=== PATIENT | female | born 1945 | race Caucasian/White ===

== ENCOUNTER → 2017-11-03 09:32 | Outpatient (CLI) | payer MEDICARE, OTHER, SELFPAY ==
--- NOTE | 2017-11-03 09:44 | NM_ITS ---
CLINICAL: 72-year-old female with history of painful left knee arthroplasty, presumably operated November 2016. LIMITED 99m Tc MDP THREE PHASE BONE SCINTIGRAPHY COMPARISON: None available FINDINGS: Following the intravenous administration of 25.0 mCi of 99m Tc MDP, three-phase bone acquisitions of the knee articulations reveal: 1. The flow and immediate static blood pool acquisitions demonstrate relatively normal, symmetric arterial phase distribution of the radiopharmaceutical to the bilateral knees. Venous hyperemia is demonstrated in the medial compartment of the right knee and medial and lateral femoral components of the left knee prosthesis. 2. Delayed images depict persistent increased radiopharmaceutical concentration visualized in the medial tibial compartment of the right knee, the patellofemoral compartments of both knees. 3. A mild increase in tracer concentration is demonstrated in the medial-lateral femoral and tibial components of the symptomatic left knee prosthesis. 4. The remaining limited skeletal structures are scintigraphically unremarkable. NM/Bone Scan Three Phase IMPRESSION: 1. The increase in radiopharmaceutical concentration defined in the femoral-tibial components of the symptomatic left knee arthroplasty may represent loosening. The specificity of this finding is decreased in the setting of operative intervention < 2 years prior to the current presentation. If an infectious etiology is a diagnostic consideration, correlation with labeled leukocyte imaging is recommended. 2. Facilitated uptake otherwise noted in the patellofemoral and medial tibial compartments of the right knee, patellofemoral compartment of the left knee (in the absence of patellar hardware placement) is commensurate with degenerative arthritis. Electronically Signed: Roberto Tsai DO at 10:41 EDT Tel , Service support ,
[2017-11-03 10:33] LABS: Erythrocyte Sedimentation Rate 8 mm/hr (0-30)
[2017-11-03 10:36] LABS: Absolute Lymphocyte Count 2.11 X10^3/ul (0.83-4.51); Absolute Neutrophil Count 3.9 X10^3/uL (2.0-7.7); Basophil# 0.02 X10^3/uL; Basophil% 0.3 % (0-1); Eosinophil# 0.18 X10^3/uL; Eosinophils% 2.7 % (0-5); Hematocrit 39.6 % (37-47); Hemoglobin 12.5 g/dl (12.0-15.0); Lymphocyte # 2.11 X10^3/ul (4.0); Lymphocyte % 31.2 % (19-41); Mean Corp Hgb Conc 31.6 g/gl (32-36); Mean Corpuscular Hgb 26.4 pg (27.0-32.0); Mean Corpuscular Volume 83.7 fL (81-99); Mean Platelet Vol. 11.7 fl (6.2-12.0); Monocyte# 0.54 X10^3/uL; Neutrophil % 57.5 % (47-70); Platelet Count 196 K/mm3 (150-450); RBC Distribution Width CV 14.8 % (11.6-14.6); RBC Distribution Width SD 45.5 fl (35.1-43.9); Red Blood Count 4.73 M/mm3 (4.2-5.4); White Blood Count 6.8 K/mm3 (4.4-11.0)
[2017-11-03 10:39] LABS: POSITIVE COUNT NO; POSITIVE DIFFERENTIAL NO; POSITIVE MORPHOLOGY NO
[2017-11-03 11:00] LABS: CRP < 2.90 mg/L (0.0-3.0)
== END ==
PROVIDERS: Family Provider Nurse Practitioner Adult Health; PCP Nurse Practitioner Adult Health; Visit Provider Orthopaedic Surgery
DX: Z96.652 Presence of left artificial knee joint (principal)
CPT/HCPCS: 36415; 78315; 85025; 85652; 86140

== ENCOUNTER → 2019-04-11 09:12 | Outpatient (CLI) | payer MEDICARE, OTHER, SELFPAY ==
[2016-12-15 11:01] VITALS: BMI 36.9
--- NOTE | 2019-04-11 09:23 | RAD_ITS ---
STUDY: X-RAY - PELVIS REASON FOR EXAM: Female, 73 years old. Inflammatory arthropathy TECHNIQUE: One view of the pelvis was obtained. COMPARISON: 03/03/2011 FINDINGS: There is a non-specific bowel gas pattern. Normal visualized soft tissue structures. Normal bilateral iliac wings, sacroiliac joints and visualized sacrum. Normal visualized bilateral superior and inferior pubic rami. Normal pubic symphysis. Normal ischial tuberosities. Status post right hip hemiarthroplasty. The prosthesis appears located. No ostial lysis to suggest loosening. Normal right acetabulum. Normal right hip joint. Normal visualized left femoral head. Normal left acetabulum. Normal left hip joint. RAD/Pelvis 1 or 2 Views IMPRESSION: Normal x-ray examination of the pelvis after right hip hemiarthroplasty. Electronically Signed: Roberto Roman MD at 9:42 EDT Tel , Service support ,
[2019-04-11 10:25] LABS: EXAGEN MAILED SPECIMEN
[2019-04-11 12:23] LABS: Color, Urine Yellow (Yellow); Glucose, Dipstick Normal (Normal); Ketone-Dipstick Negative (Negative); Leukocyte Esterase-Dipstick Negative /ul (Negative); Nitrite-Dipstick Negative (Negative); Occult Blood-Urine Negative /ul (Negative); Protein-Dipstick Negative (Negative); Specific Gravity, Urine 1.015 (1.002-1.030); Urine Bilirubin Dipstick Negative (Negative); Urine Clarity Sl. Cloudy (Clear); Urine Urobilinogen Normal (Normal)
[2019-04-11 12:26] LABS: Erythrocyte Sedimentation Rate 21 mm/hr (0-30)
[2019-04-11 12:28] LABS: Absolute Lymphocyte Count 2.22 X10^3/uL (0.83-4.51); Absolute Neutrophil Count 4.4 X10^3/uL (2.0-7.7); Basophil# 0.05 X10^3/uL; Basophil% 0.7 % (0-1); Eosinophil# 0.41 X10^3/uL; Eosinophils% 5.4 % (0-5); Hematocrit 40.3 % (37-47); Hemoglobin 12.7 g/dL (12.0-15.0); Lymphocyte # 2.22 X10^3/ul (4.0); Lymphocyte % 29.2 % (19-41); Mean Corp Hgb Conc 31.5 g/dL (32-36); Mean Corpuscular Volume 82.4 fL (81-99); Mean Platelet Vol. 12.1 fl (6.2-12.0); Monocyte# 0.49 X10^3/uL; Monocyte% 6.4 % (0-10); NRBC Flagged by Analyzer 0 % (0-5); Neutrophil # 4.39 X10^3/uL (2.7-7.7); Neutrophil % 57.6 % (47-70); Platelet Count 216 K/mm3 (150-450); RBC Distribution Width CV 14.5 % (11.6-14.6); RBC Distribution Width SD 42.9 fl (35.1-43.9); Red Blood Count 4.89 M/mm3 (4.2-5.4); White Blood Count 7.6 K/mm3 (4.4-11.0)
[2019-04-11 12:32] LABS: Protein, Urine (Random) 13.1 mg/dL (<11.9); Protein:Creat Ratio 82 mg/g CRE (0-200)
[2019-04-11 12:36] LABS: ALB/GLOB Ratio 0.9 RATIO (0.9-2.4); AST(SGOT) 14 U/L (15-37); Alanine Aminotransfer ALT/SGPT 21 U/L (13-56); Albumin, Serum 3.7 g/dL (3.2-5.0); Alkaline Phosphatase 87 U/L (45-117); Anion Gap 7 (5-15); BUN 16 mg/dL (7-18); BUN/Creat Ratio 11.9 RATIO (10-20); CRP 4.61 mg/L (0.0-3.0); Calcium,Total 9.1 mg/dL (8.5-10.1); Chloride 106 mmol/L (98-107); Creatinine, Serum 1.34 mg/dL (0.55-1.02); EST Glomerular Filtration Rate 41 mL/min (>60); Est Glom Filt Rate - Afr Amer 50 mL/min (>60); Globulin 4.1 g/dL (2.2-4.2); Glucose 90 mg/dL (74-106); Protein, Total 7.8 g/dL (6.4-8.2); Sodium Level 141 mmol/L (136-145)
[2019-04-11 13:27] LABS: Hepatitis B Surface Antibody Non-Reactive; Hepatitis B Surface Antigen Non-Reactive (Nonreactive); Hepatitis C Antibody Non-Reactive (Nonreactive)
[2019-04-12 13:52] LABS: Hepatitis B Core AB IgM Negative (Negative)
== END ==
PROVIDERS: Family Provider Nurse Practitioner Adult Health; PCP Nurse Practitioner Adult Health; Referring Provider Internal Medicine Rheumatology; Visit Provider Internal Medicine Rheumatology
DX: M06.4 Inflammatory polyarthropathy (principal); M79.7 Fibromyalgia; M17.0 Bilateral primary osteoarthritis of knee; M16.0 Bilateral primary osteoarthritis of hip; K21.9 Gastro-esophageal reflux disease without esophagitis; I12.9 Hypertensive chronic kidney disease with stage 1 through stage 4 chronic kidney disease, or unspecified chronic kidney disease; N18.9 Chronic kidney disease, unspecified; I35.0 Nonrheumatic aortic (valve) stenosis; R76.8 Other specified abnormal immunological findings in serum
CPT/HCPCS: 36415; 72170; 80053; 81002; 82570; 84156; 85025; 85652; 86140; 86705; 86706; 86803; 87340

== ENCOUNTER → 2020-01-24 14:42 | Outpatient (CLI) | payer MEDICARE, OTHER, SELFPAY ==
[2016-12-15 11:01] VITALS: BMI 36.9
[2020-01-24 17:53] LABS: Absolute Lymphocyte Count 2.18 X10^3/uL (0.83-4.51); Absolute Neutrophil Count 4.1 X10^3/uL (2.0-7.7); Basophil# 0.06 X10^3/uL; Basophil% 0.8 % (0-1); Eosinophil# 0.23 X10^3/uL; Eosinophils% 3.2 % (0-5); Hematocrit 39.8 % (37-47); Hemoglobin 12.6 g/dL (12.0-15.0); Lymphocyte # 2.18 X10^3/ul (4.0); Lymphocyte % 30.7 % (19-41); Mean Corp Hgb Conc 31.7 g/dL (32-36); Mean Corpuscular Volume 85.4 fL (81-99); Mean Platelet Vol. 11.9 fl (6.2-12.0); Monocyte# 0.52 X10^3/uL; Monocyte% 7.3 % (0-10); NRBC Flagged by Analyzer 0 % (0-5); Neutrophil # 4.06 X10^3/uL (2.7-7.7); Neutrophil % 57.2 % (47-70); Platelet Count 219 K/mm3 (150-450); RBC Distribution Width CV 13.2 % (11.6-14.6); RBC Distribution Width SD 41.1 fl (35.1-43.9); Red Blood Count 4.66 M/mm3 (4.2-5.4); White Blood Count 7.1 K/mm3 (4.4-11.0)
[2020-01-24 18:05] LABS: AST(SGOT) 14 U/L (15-37); Alanine Aminotransfer ALT/SGPT 21 U/L (13-56); Alkaline Phosphatase 76 U/L (45-117); Anion Gap 3 (5-15); BUN 25 mg/dL (7-18); Calcium,Total 9.3 mg/dL (8.5-10.1); Chloride 101 mmol/L (98-107); Creatinine, Serum 1.47 mg/dL (0.55-1.02); EST Glomerular Filtration Rate 37 mL/min (>60); Est Glom Filt Rate - Afr Amer 45 mL/min (>60); Globulin 4.2 g/dL (2.2-4.2); Glucose 85 mg/dL (74-106); Potassium 3.6 mmol/L (3.5-5.1); Protein, Total 8.2 g/dL (6.4-8.2); Sodium Level 135 mmol/L (136-145)
== END ==
PROVIDERS: PCP Nurse Practitioner Adult Health; Referring Provider Internal Medicine Rheumatology; Visit Provider Internal Medicine Rheumatology
DX: M06.4 Inflammatory polyarthropathy (principal); L93.1 Subacute cutaneous lupus erythematosus; M79.7 Fibromyalgia; M17.0 Bilateral primary osteoarthritis of knee; M16.0 Bilateral primary osteoarthritis of hip; K21.9 Gastro-esophageal reflux disease without esophagitis; I12.9 Hypertensive chronic kidney disease with stage 1 through stage 4 chronic kidney disease, or unspecified chronic kidney disease; N18.9 Chronic kidney disease, unspecified
CPT/HCPCS: 36415; 80053; 85025

== ENCOUNTER → 2020-04-24 13:43 | Outpatient (CLI) | payer MEDICARE, OTHER, SELFPAY ==
[2016-12-15 11:01] VITALS: BMI 36.9
[2020-04-24 15:21] LABS: Absolute Lymphocyte Count 1.74 X10^3/uL (0.83-4.51); Absolute Neutrophil Count 4.4 X10^3/uL (2.0-7.7); Basophil# 0.06 X10^3/uL; Basophil% 0.9 % (0-1); Eosinophil# 0.19 X10^3/uL; Eosinophils% 2.8 % (0-5); Hematocrit 40.4 % (37-47); Hemoglobin 12.4 g/dL (12.0-15.0); Lymphocyte # 1.74 X10^3/ul (4.0); Lymphocyte % 25.4 % (19-41); Mean Corp Hgb Conc 30.7 g/dL (32-36); Mean Corpuscular Hgb 26.1 pg (27.0-32.0); Mean Corpuscular Volume 85.1 fL (81-99); Mean Platelet Vol. 12.7 fl (6.2-12.0); Monocyte# 0.47 X10^3/uL; Monocyte% 6.9 % (0-10); NRBC Flagged by Analyzer 0 % (0-5); Neutrophil # 4.35 X10^3/uL (2.7-7.7); Neutrophil % 63.6 % (47-70); Platelet Count 202 K/mm3 (150-450); RBC Distribution Width CV 14.3 % (11.6-14.6); RBC Distribution Width SD 44.8 fl (35.1-43.9); Red Blood Count 4.75 M/mm3 (4.2-5.4); White Blood Count 6.8 K/mm3 (4.4-11.0)
[2020-04-24 15:43] LABS: ALB/GLOB Ratio 0.9 RATIO (0.9-2.4); AST(SGOT) 17 U/L (15-37); Alanine Aminotransfer ALT/SGPT 18 U/L (13-56); Albumin, Serum 3.7 g/dL (3.2-5.0); Alkaline Phosphatase 66 U/L (45-117); Anion Gap 8 (5-15); BUN 17 mg/dL (7-18); BUN/Creat Ratio 17.1 RATIO (10-20); Calcium,Total 9.7 mg/dL (8.5-10.1); Chloride 105 mmol/L (98-107); Creatinine, Serum 0.99 mg/dL (0.55-1.02); EST Glomerular Filtration Rate 58 mL/min (>60); Est Glom Filt Rate - Afr Amer 71 mL/min (>60); Globulin 4.1 g/dL (2.2-4.2); Glucose 87 mg/dL (74-106); Potassium 3.5 mmol/L (3.5-5.1); Protein, Total 7.8 g/dL (6.4-8.2); Sodium Level 140 mmol/L (136-145)
== END ==
PROVIDERS: PCP Nurse Practitioner Adult Health; Referring Provider Internal Medicine Rheumatology; Visit Provider Internal Medicine Rheumatology
DX: M06.4 Inflammatory polyarthropathy (principal); L93.1 Subacute cutaneous lupus erythematosus; M79.7 Fibromyalgia; M17.0 Bilateral primary osteoarthritis of knee; M16.0 Bilateral primary osteoarthritis of hip; K21.9 Gastro-esophageal reflux disease without esophagitis; I12.9 Hypertensive chronic kidney disease with stage 1 through stage 4 chronic kidney disease, or unspecified chronic kidney disease; N18.9 Chronic kidney disease, unspecified; I35.0 Nonrheumatic aortic (valve) stenosis; F41.9 Anxiety disorder, unspecified; F32.9 Major depressive disorder, single episode, unspecified; G43.909 Migraine, unspecified, not intractable, without status migrainosus; M48.061 Spinal stenosis, lumbar region without neurogenic claudication
CPT/HCPCS: 36415; 80053; 85025

== ENCOUNTER → 2020-08-05 10:13 | Outpatient (CLI) | payer MEDICARE, OTHER, SELFPAY ==
[2016-12-15 11:01] VITALS: BMI 36.9
[2020-08-05 12:28] LABS: Absolute Lymphocyte Count 1.87 X10^3/uL (0.83-4.51); Absolute Neutrophil Count 3.7 X10^3/uL (2.0-7.7); Basophil# 0.05 X10^3/uL; Basophil% 0.8 % (0-1); Eosinophil# 0.31 X10^3/uL; Eosinophils% 4.8 % (0-5); Hematocrit 41.5 % (37-47); Hemoglobin 13.1 g/dL (12.0-15.0); Lymphocyte # 1.87 X10^3/ul (4.0); Lymphocyte % 29.2 % (19-41); Mean Corp Hgb Conc 31.6 g/dL (32-36); Mean Corpuscular Hgb 27.4 pg (27.0-32.0); Mean Corpuscular Volume 86.8 fL (81-99); Mean Platelet Vol. 11.9 fl (6.2-12.0); Monocyte% 6.2 % (0-10); NRBC Flagged by Analyzer 0 % (0-5); Neutrophil # 3.74 X10^3/uL (2.7-7.7); Neutrophil % 58.4 % (47-70); Platelet Count 195 K/mm3 (150-450); RBC Distribution Width CV 13.4 % (11.6-14.6); RBC Distribution Width SD 42.7 fl (35.1-43.9); Red Blood Count 4.78 M/mm3 (4.2-5.4); White Blood Count 6.4 K/mm3 (4.4-11.0)
[2020-08-05 12:44] LABS: ALB/GLOB Ratio 0.9 RATIO (0.9-2.4); AST(SGOT) 16 U/L (15-37); Alanine Aminotransfer ALT/SGPT 17 U/L (13-56); Albumin, Serum 3.7 g/dL (3.2-5.0); Alkaline Phosphatase 93 U/L (45-117); Anion Gap 6 (5-15); BUN 22 mg/dL (7-18); BUN/Creat Ratio 19.8 RATIO (10-20); Calcium,Total 9.2 mg/dL (8.5-10.1); Chloride 105 mmol/L (98-107); Creatinine, Serum 1.11 mg/dL (0.55-1.02); EST Glomerular Filtration Rate 51 mL/min (>60); Est Glom Filt Rate - Afr Amer 62 mL/min (>60); Globulin 3.9 g/dL (2.2-4.2); Glucose 101 mg/dL (74-106); Potassium 4.1 mmol/L (3.5-5.1); Protein, Total 7.6 g/dL (6.4-8.2); Sodium Level 139 mmol/L (136-145)
== END ==
LOC: LAB 10:17 → MTLAB 10:17
PROVIDERS: PCP Nurse Practitioner Adult Health; Referring Provider Internal Medicine Rheumatology; Visit Provider Internal Medicine Rheumatology
DX: M06.4 Inflammatory polyarthropathy (principal); L93.1 Subacute cutaneous lupus erythematosus; M79.7 Fibromyalgia; M17.0 Bilateral primary osteoarthritis of knee; M16.0 Bilateral primary osteoarthritis of hip; K21.9 Gastro-esophageal reflux disease without esophagitis; I12.9 Hypertensive chronic kidney disease with stage 1 through stage 4 chronic kidney disease, or unspecified chronic kidney disease; N18.9 Chronic kidney disease, unspecified; I35.0 Nonrheumatic aortic (valve) stenosis; F41.9 Anxiety disorder, unspecified; F32.9 Major depressive disorder, single episode, unspecified; G43.909 Migraine, unspecified, not intractable, without status migrainosus; M48.061 Spinal stenosis, lumbar region without neurogenic claudication
CPT/HCPCS: 36415; 80053; 85025

== ENCOUNTER → 2021-02-14 07:26 | Outpatient (CLI) | payer MEDICARE, OTHER, SELFPAY ==
--- NOTE | 2021-02-14 07:33 | CT_ITS ---
STUDY: CT RIGHT LOWER EXTREMITY WITHOUT CONTRAST REASON FOR EXAM: Right knee osteoarthritis, surgical planning. TECHNIQUE: Transaxial CT imaging of the lower extremity was performed. Coronal and sagittal images were reformatted. Individualized dose optimization techniques were used for this CT. COMPARISON: None. FINDINGS: Knee: There are marginal osteophytes, subchondral cystic change and chondral thinning of the medial femorotibial compartment (coronal reconstruction 35) with vacuum phenomenon in the medial compartment (coronal reconstructions 31-36). There are small marginal osteophytes of the lateral femoral condyle without joint space narrowing of the lateral femorotibial compartment. There is an enchondroma in the lateral aspect of the distal femoral metaphysis (coronal reconstructions 29-31) measuring 1.4 cm in length. There are marginal osteophytes and mild joint space narrowing of the patellofemoral compartment (sagittal reconstruction 41). Normal proximal tibiofibular articulation. There is no joint effusion. The quadriceps tendon is grossly normal. The patellar tendon is grossly normal. Normal Hoffa''s fat pad. There is vascular calcification. Hip: There is a right hip arthroplasty without evidence of complication. Ankle: Normal tibiotalar, posterior subtalar, talonavicular and calcaneocuboid articulations. There is a posterior calcaneal enthesophyte and mild distal Achilles calcific tendinitis (sagittal reconstruction 32). There is a small plantar calcaneal enthesophyte. CT/Extremity Lower without Contra IMPRESSION: Right knee osteoarthritis. 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 Electronically Signed: Tomás Nixon MD at 14:50 EDT Tel , Service support ,
--- NOTE | 2021-02-14 08:08 | EKG12_ITS ---
Test Reason : PRE OP Blood Pressure : / mmHG Vent. Rate : 075 BPM Atrial Rate : 075 BPM P-R Int : 156 ms QRS Dur : 090 ms QT Int : 406 ms P-R-T Axes : 063 018 096 degrees QTc Int : 453 ms Normal sinus rhythm with sinus arrhythmia Normal ECG Confirmed by MANJU GARCIA, ISAAC ([id number]), city editor ABIMAEL MCFADDEN ([id number]) on 02/17/2021 1:08:35 PM Referred By: Hardy Sethi Confirmed By:ISAAC NUNES MD
[2021-02-14 08:48] LABS: Hematocrit 41.8 % (37-47); Mean Corp Hgb Conc 31.1 g/dL (32-36); Mean Corpuscular Hgb 27.1 pg (27.0-32.0); Mean Corpuscular Volume 87.3 fL (81-99); Mean Platelet Vol. 11.3 fl (6.2-12.0); Platelet Count 208 K/mm3 (150-450); RBC Distribution Width CV 13.5 % (11.6-14.6); RBC Distribution Width SD 43.1 fl (35.1-43.9); Red Blood Count 4.79 M/mm3 (4.2-5.4)
[2021-02-14 09:28] LABS: Anion Gap 5 (5-15); BUN 17 mg/dL (7-18); BUN/Creat Ratio 13.1 RATIO (10-20); Calcium,Total 9.4 mg/dL (8.5-10.1); Chloride 105 mmol/L (98-107); EST Glomerular Filtration Rate 43 mL/min (>60); Est Glom Filt Rate - Afr Amer 52 mL/min (>60); Glucose 72 mg/dL (74-106); Potassium 3.4 mmol/L (3.5-5.1); Sodium Level 140 mmol/L (136-145)
== END ==
PROVIDERS: PCP Nurse Practitioner Adult Health; Referring Provider Physician Assistant; Visit Provider Physician Assistant
DX: Z01.818 Encounter for other preprocedural examination (principal); Z01.810 Encounter for preprocedural cardiovascular examination; M17.11 Unilateral primary osteoarthritis, right knee
CPT/HCPCS: 36415; 73700; 80048; 85027; 93005

== ENCOUNTER → 2021-02-28 15:32 | Outpatient (CLI) | payer MEDICARE, OTHER, SELFPAY ==
--- NOTE | 2021-02-28 09:00 | KNEE_PTH ---
PATIENT: BRANDON CLIFFORD LOC: [facility] U#:[id number] AGE/SX: 79/F ROOM: RE02/28/[address]: Dr. Peyman High, : 1945 BED: DIS: SPEC #: [id number] RECD: 02/28/21 14:54 STATUS: STEVEN JUNI #: [id number] DC: 02/28/21 09:[address]: Peyman High DEPT: SURGICAL PATHOLOGY RECD BY: Balaji Back ENTERED: 03/04/21 08:59 SP TYPE: TOTAL KNEE OTHR DR: Sabrina Gupta, POOL-Jackie [facility] Tissues: Knee, NOS Procedures: Decalcification bone/plaque Surgery Specimen Level IV HEADER OPERATION: Robotic assisted right total knee PRE-OP DIAGNOSIS: Unilateral primary osteoarthritis, right knee TISSUE SUBMITTED: Bone and soft tissue, right knee MICROSCOPIC DIAGNOSIS Bone and tissue of right knee, total knee resection: Severe degenerative joint disease. Mild synovial hyperplasia. AM:am 9/10/21 MICROSCOPIC DESCRIPTION Slides are reviewed. GROSS DESCRIPTION Received is one container designated bone and soft tissue right knee. The specimen consists of multiple fragments of wetzel-yellow bone measuring in aggregate 15 x 10 x 2cm. Also in the specimen container are multiple fragments of yellow-white soft tissue measuring in aggregate 8 x 7 x 2cm. A number of bony fragments contain articular surfaces consistent with tibial plateau and femoral condyle and displaying prominent osteophyte formation, eburnation, and bone erosion. Watch Crystal [employer]inder sections are submitted in two cassettes as follows: 1 - soft tissue, 2 - bone after decalcification. / AM:am 03/04/21 TC:5 CPT: 25497, 05909
== END ==
PROVIDERS: PCP Nurse Practitioner Adult Health; Referring Provider Orthopaedic Surgery; Visit Provider Orthopaedic Surgery
DX: M17.11 Unilateral primary osteoarthritis, right knee (principal)
CPT/HCPCS: 88305; 88311

== ENCOUNTER → 2021-05-19 12:42 | Outpatient (CLI) | payer MEDICARE, OTHER, SELFPAY ==
[2021-05-19 15:17] LABS: Absolute Lymphocyte Count 1.93 X10^3/uL (0.83-4.51); Absolute Neutrophil Count 4.3 X10^3/uL (2.0-7.7); Basophil# 0.07 X10^3/uL; Eosinophil# 0.22 X10^3/uL; Eosinophils% 3.1 % (0-5); Hematocrit 43.4 % (37-47); Hemoglobin 13.6 g/dL (12.0-15.0); Lymphocyte # 1.93 X10^3/ul (0.83-4.51); Lymphocyte % 27.1 % (19-41); Mean Corp Hgb Conc 31.3 g/dL (32-36); Mean Corpuscular Hgb 25.8 pg (27.0-32.0); Mean Corpuscular Volume 82.2 fL (81-99); Mean Platelet Vol. 11.6 fl (6.2-12.0); Monocyte# 0.54 X10^3/uL; Monocyte% 7.6 % (0-10); NRBC Flagged by Analyzer 0 % (0-5); Neutrophil # 4.34 X10^3/uL (2.7-7.7); Neutrophil % 61.1 % (47-70); Platelet Count 242 K/mm3 (150-450); RBC Distribution Width SD 41.5 fl (35.1-43.9); Red Blood Count 5.28 M/mm3 (4.2-5.4); White Blood Count 7.1 K/mm3 (4.4-11.0)
[2021-05-19 15:40] LABS: ALB/GLOB Ratio 0.9 RATIO (0.9-2.4); AST(SGOT) 14 U/L (15-37); Alanine Aminotransfer ALT/SGPT 17 U/L (13-56); Alkaline Phosphatase 88 U/L (45-117); Anion Gap 8 (5-15); BUN 15 mg/dL (7-18); BUN/Creat Ratio 12.1 RATIO (10-20); Calcium,Total 9.9 mg/dL (8.5-10.1); Chloride 102 mmol/L (98-107); Cholesterol 229 mg/dL (200); Creatinine, Serum 1.24 mg/dL (0.55-1.02); EST Glomerular Filtration Rate 45 mL/min (>60); Est Glom Filt Rate - Afr Amer 54 mL/min (>60); Globulin 4.4 g/dL (2.2-4.2); Glucose 97 mg/dL (74-106); High Density Lipoprotein 71 mg/dL; Potassium 3.4 mmol/L (3.5-5.1); Protein, Total 8.4 g/dL (6.4-8.2); Sodium Level 138 mmol/L (136-145); Thyroid Stim Hormone (TSH) 2.24 uIU/mL (0.358-3.74); Triglycerides 106 mg/dL; Very Low Density Lipoprotein 21 mg/dL (5-40)
[2021-05-19 16:06] LABS: Hepatitis C Antibody Non-Reactive (Nonreactive); Vitamin D,25 Hydroxy 22.7 ng/mL
== END ==
PROVIDERS: PCP Nurse Practitioner Adult Health; Referring Provider Internal Medicine Rheumatology; Visit Provider Internal Medicine Rheumatology
DX: E78.2 Mixed hyperlipidemia (principal); Z13.29 Encounter for screening for other suspected endocrine disorder; E55.9 Vitamin D deficiency, unspecified; Z11.59 Encounter for screening for other viral diseases; M06.4 Inflammatory polyarthropathy; L93.1 Subacute cutaneous lupus erythematosus; M79.7 Fibromyalgia; M17.0 Bilateral primary osteoarthritis of knee; M16.0 Bilateral primary osteoarthritis of hip; K21.9 Gastro-esophageal reflux disease without esophagitis; N18.9 Chronic kidney disease, unspecified; I35.0 Nonrheumatic aortic (valve) stenosis; F41.9 Anxiety disorder, unspecified; G43.909 Migraine, unspecified, not intractable, without status migrainosus; M48.061 Spinal stenosis, lumbar region without neurogenic claudication; I12.9 Hypertensive chronic kidney disease with stage 1 through stage 4 chronic kidney disease, or unspecified chronic kidney disease
CPT/HCPCS: 36415; 80053; 80061; 82306; 84443; 85025; 86803

== ENCOUNTER → 2022-01-12 | Outpatient (CLI) | payer MEDICARE, OTHER, SELFPAY ==
[2022-01-12 15:47] LABS: Absolute Lymphocyte Count 1.63 X10^3/uL (0.83-4.51); Absolute Neutrophil Count 4.2 X10^3/uL (2.0-7.7); Basophil# 0.05 X10^3/uL; Basophil% 0.8 % (0-1); Hemoglobin 12.7 g/dL (12.0-15.0); Lymphocyte # 1.63 X10^3/ul (0.83-4.51); Lymphocyte % 24.6 % (19-41); Mean Corpuscular Hgb 26.9 pg (27.0-32.0); Mean Corpuscular Volume 86.9 fL (81-99); Mean Platelet Vol. 13.1 fl (6.2-12.0); Monocyte% 7.6 % (0-10); NRBC Flagged by Analyzer 0 % (0-5); Neutrophil # 4.21 X10^3/uL (2.7-7.7); Neutrophil % 63.5 % (47-70); Platelet Count 184 K/mm3 (150-450); RBC Distribution Width CV 14.4 % (11.6-14.6); RBC Distribution Width SD 45.6 fl (35.1-43.9); Red Blood Count 4.72 M/mm3 (4.2-5.4); White Blood Count 6.6 K/mm3 (4.4-11.0)
[2022-01-12 15:56] LABS: Erythrocyte Sedimentation Rate 11 mm/hr (0-30)
[2022-01-12 16:32] LABS: CRP < 2.90 mg/L (0.0-3.0)
== END | disposition home or self-care (01) ==
PROVIDERS: PCP Nurse Practitioner Adult Health; Referring Provider Specialist; Visit Provider Specialist
DX: Z96.651 Presence of right artificial knee joint (principal)
CPT/HCPCS: 36415; 85025; 85652; 86140

== ENCOUNTER → 2023-01-18 | Outpatient (CLI) | payer MEDICARE, OTHER, SELFPAY ==
--- NOTE | 2023-01-18 11:06 | STRESSREP_ITS ---
Stress Test Report Date: 01/18/2023 Procedure: Pharmacologic stress nuclear imaging study Indications: Coronary artery disease Consent: Per the patient Procedure: The patient underwent pharmacologic (Regadenoson 0.4mg ) evaluation with a peak heart rate of 79 beats per minute (54%predicted maximal heart rate) and a peak blood pressure of 124/82 mmHg. The baseline ECG demonstrated normal sinus rhythm. The peak pharmacologic ECG demonstrated no ischemic change. There were no cardiac dysrhythmias pretest, during pharmacologic infusion, or recovery. There was no complaint of chest discomfort during pharmacologic infusion or recovery. The patient was injected with 12 millicuries of technetium 99m Cardiolite and subsequently rest SPECT Cardiolite nuclear imaging was obtained in the horizontal long, vertical long, and short axis views. The patient underwent pharmacologic (Regadenoson) evaluation. The patient was injected with 33.9 millicuries of technetium 99m Cardiolite and subsequently stress SPECT Cardiolite nuclear imaging was obtained in the horizontal long, vertical long, and short axis views. A gated Cardiolite study at peak stress was obtained. The examination was stopped secondary to completion of protocol. Rest and stress SPECT Cardiolite nuclear imaging status post realignment, normalization, and attenuation correction demonstrate small reversible apical defect. There is end systolic thickening and brightening. The gated Cardiolite study demonstrates myocardial thickening and inward wall motion. The reported LVEF is 61%. Impression: 1. Pharmacologic (Regadenoson) evaluation 2. Peak pharmacologic ECG with no ischemic changes. 3. There were no cardiac dysrhythmias pretest, during pharmacologic infusion, or recovery. 5. Small reversible apical defect with stress. Suggestive of small area of ischemia. 6. The gated Cardiolite study reports an LVEF of 61%. This note was generated with [employer] software. It may contain incorrect words, spelling, and punctuation that were not noted in checking the note before signing.
== END | disposition home or self-care (01) ==
LOC: CVS 06:38
PROVIDERS: PCP Nurse Practitioner Adult Health; Referring Provider Internal Medicine Cardiovascular Disease; Visit Provider Internal Medicine Cardiovascular Disease
DX: I25.10 Atherosclerotic heart disease of native coronary artery without angina pectoris (principal); M32.9 Systemic lupus erythematosus, unspecified; I77.9 Disorder of arteries and arterioles, unspecified; I10 Essential (primary) hypertension; I35.0 Nonrheumatic aortic (valve) stenosis
CPT/HCPCS: 78452; 93017; A9500; A4216; J2785

== ENCOUNTER → 2023-06-15 | Outpatient (CLI) | payer MEDICARE, OTHER, SELFPAY ==
--- NOTE | 2023-06-15 13:31 | ECHOL_ITS ---
Reason For Study: RE-EVALUATE AV Procedure This was a limited 2D transthoracic echocardiogram. Exam performed in department. Left Ventricle Normal left ventricle. Left ventricular systolic function is normal. The estimated ejection fraction is 55 %. No regional wall motion abnormalities noted. Right Ventricle Normal RV size. The right ventricle is normal in size, function, and thickness. Atria Normal left atrium. Normal right atrium. Mitral Valve Normal mitral valve. Tricuspid Valve Normal tricuspid valve. Aortic Valve Trisinus/trileaflet aortic valve. Mild focal aortic valve calcification. Peak aortic valve gradient 51 mmHg. Mean aortic valve gradient 31 mmHg. Moderate aortic stenosis. Mild (1+) aortic valve insufficiency. Pulmonic Valve Normal pulmonic valve. Great Vessels Normal aortic root. Pericardium/Pleural No pericardial effusion. MMode/2D Measurements & Calculations LVIDd: 5.8 cm IVSd: 0.91 cm LVOT diam: 2.0 cm LVIDs: 4.1 cm LVPWd: 0.90 cm LVOT area: 3.3 cm2 RVDd: 3.1 cm FS: 30.0 % Ao root diam: 3.3 cm LAV(MOD-bp): 55.7 ml LVAd ap4: 26.6 cm2 LAV(MOD-bp) Indexed: 29.2 ml/m2 LVLd ap4: 8.3 cm LAV(MOD-sp2): 49.2 ml EDV(MOD-sp4): 76.9 ml LAV(MOD-sp4): 63.6 ml EDV(sp4-el): 72.7 ml LVAs ap4: 14.9 cm2 LVLs ap4: 6.7 cm ESV(MOD-sp4): 30.4 ml ESV(sp4-el): 28.2 ml EF(MOD-sp4): 60.5 % EF(sp4-el): 61.2 % LVAd ap2: 24.0 cm2 SV(MOD-sp4): 46.6 ml SV(MOD-sp2): 40.5 ml LVLd ap2: 7.7 cm EDV(MOD-sp2): 65.5 ml EDV(sp2-el): 63.4 ml LVAs ap2: 13.3 cm2 LVLs ap2: 6.5 cm ESV(MOD-sp2): 25.0 ml ESV(sp2-el): 23.1 ml EF(MOD-sp2): 61.8 % SV(sp4-el): 44.5 ml Aortic Valve Planimetry: 1.0 cm2 LA A4 area: 20.7 cm2 LA dimension(2D): 3.3 cm RA A4 area: 11.3 cm2 Doppler Measurements & Calculations Ao V2 max: 357.3 cm/sec AI max giovanni: 381.9 cm/sec LV V1 max: 107.6 cm/sec Ao max P.1 mmHg AI max P.4 mmHg LV V1 max P.6 mmHg Ao V2 mean: 265.6 cm/sec LV V1 mean P.7 mmHg Ao mean P.8 mmHg AI dec slope: 219.5 cm/sec2 LV V1 mean: 79.1 cm/sec Ao V2 VTI: 84.4 cm AI P1/2t: 509.7 msec LV V1 VTI: 25.8 cm AV (velocity ratio): 0.31 MONIKA(I,D): 1.00 cm2 MONIKA(V,D): 0.98 cm2 SV(LVOT): 84.1 ml ECHO/Echo, Limited Study Interpretation Summary Normal left ventricle. Left ventricular systolic function is normal. The estimated ejection fraction is 55 %. Mild focal aortic valve calcification. Mean aortic valve gradient 31 mmHg. Moderate aortic stenosis. Ordering Physician: Kayla Steinberg Referring Physician: Sabrina Gupta Performed By: Viry Eubanks RDCS, RVT
== END | disposition home or self-care (01) ==
LOC: CVS 13:30
PROVIDERS: PCP Nurse Practitioner Adult Health; Referring Provider Internal Medicine Cardiovascular Disease; Visit Provider Internal Medicine Cardiovascular Disease
DX: I10 Essential (primary) hypertension (principal); I77.9 Disorder of arteries and arterioles, unspecified; I35.0 Nonrheumatic aortic (valve) stenosis
CPT/HCPCS: 93308

== ENCOUNTER → 2024-03-28 | Outpatient (CLI) | payer MEDICARE, OTHER, SELFPAY ==
[2024-03-28 12:07] LABS: Absolute Lymphocyte Count 2.99 X10^3/uL (0.83-4.51); Absolute Neutrophil Count 8.8 X10^3/uL (2.0-7.7); Basophil# 0.07 X10^3/uL; Basophil% 0.5 % (0-1); Eosinophil# 0.23 X10^3/uL; Eosinophils% 1.7 % (0-5); Hematocrit 44.2 % (37-47); Hemoglobin 13.9 g/dL (12.0-15.0); Lymphocyte # 2.99 X10^3/ul (0.83-4.51); Lymphocyte % 22.6 % (19-41); Mean Corp Hgb Conc 31.4 g/dL (32-36); Mean Corpuscular Volume 82.6 fL (81-99); Mean Platelet Vol. 12.1 fl (6.2-12.0); Monocyte# 1.05 X10^3/uL; Monocyte% 7.9 % (0-10); NRBC Flagged by Analyzer 0 % (0-5); Neutrophil # 8.77 X10^3/uL (2.7-7.7); Neutrophil % 66.2 % (47-70); Platelet Count 231 K/mm3 (150-450); RBC Distribution Width CV 14.1 % (11.6-14.6); RBC Distribution Width SD 41.9 fl (35.1-43.9); Red Blood Count 5.35 M/mm3 (4.2-5.4); White Blood Count 13.3 K/mm3 (4.4-11.0)
[2024-03-28 12:11] LABS: Color, Urine Yellow (Yellow); Glucose, Dipstick Normal (Normal); Ketone-Dipstick Negative (Negative); Leukocyte Esterase-Dipstick Negative /ul (Negative); Nitrite-Dipstick Negative (Negative); Occult Blood-Urine Negative /ul (Negative); Protein-Dipstick 15 mg/dl (Negative); Urine Bilirubin Dipstick Negative (Negative); Urine Clarity Sl. Cloudy (Clear); Urine Urobilinogen Normal (Normal)
[2024-03-28 12:33] LABS: Protein, Urine (Random) 27.3 mg/dL (<11.9); Protein:Creat Ratio 181 mg/g CRE (0-200)
[2024-03-28 13:11] LABS: AST(SGOT) 11 U/L (15-37); Alanine Aminotransfer ALT/SGPT 21 U/L (13-56); Albumin, Serum 4.1 g/dL (3.2-5.0); Alkaline Phosphatase 83 U/L (45-117); Anion Gap 7 (5-15); BUN 24 mg/dL (7-18); BUN/Creat Ratio 16.3 RATIO (10-20); Chloride 104 mmol/L (98-107); Creatinine, Serum 1.47 mg/dL (0.55-1.02); EST Glomerular Filtration Rate 37 mL/min (>60); Est Glom Filt Rate - Afr Amer 44 mL/min (>60); Glucose 76 mg/dL (74-106); Potassium 3.4 mmol/L (3.5-5.1); Protein, Total 8.1 g/dL (6.4-8.2); Sodium Level 141 mmol/L (136-145)
[2024-03-29 05:07] LABS: Complement C3 147 mg/dL (82-167)
[2024-03-29 13:08] LABS: Anti-dsDNA Ab 1 IU/mL (0-9)
== END | disposition home or self-care (01) ==
LOC: MTLAB 10:26
PROVIDERS: PCP Nurse Practitioner Adult Health; Referring Provider Internal Medicine Rheumatology; Visit Provider Internal Medicine Rheumatology
DX: M06.4 Inflammatory polyarthropathy (principal); L93.1 Subacute cutaneous lupus erythematosus; M79.7 Fibromyalgia; Z79.899 Other long term (current) drug therapy
CPT/HCPCS: 36415; 80053; 81002; 82570; 84156; 85025; 86160; 86225

== ENCOUNTER → 2024-04-24 | Outpatient (CLI) | payer MEDICARE, OTHER, SELFPAY ==
--- NOTE | 2024-04-24 12:44 | ECHOCS_ITS ---
Reason For Study: SHORTNESS OF BREATH Procedure This was a 2D Doppler, Color Flow transthoracic echocardiogram. The study was technically difficult. Contrast injection was performed. Exam performed in department. Left Ventricle Normal size and thickness. The left ventricular ejection fraction is 60 %. Normal diastology for age. Right Ventricle Normal right ventricle. Atria The left and right atria are normal. Mitral Valve Trivial mitral valve insufficiency. Tricuspid Valve Trivial tricuspid valve insufficiency. Normal pulmonary artery pressure. Aortic Valve Mild diffuse aortic valve calcification. Moderate aortic valve stenosis. Mean peak gradient 34 mmHg. Mild aortic valve regurgitation. Pulmonic Valve The pulmonic valve is not well visualized. Great Vessels Normal sized aortic root. Pericardium/Pleural Trivial pericardial effusion. Medication 22 gauge I.V. with prn adaptor inserted into left arm. Diluted definity 2ml given slow IV push to enhance endocardial definition. MMode/2D Measurements & Calculations LVIDd: 4.5 cm IVSd: 1.0 cm LVOT diam: 2.0 cm LVIDs: 2.7 cm LVPWd: 1.1 cm RVDd: 3.1 cm FS: 40.8 % LVOT area: 3.3 cm2 asc Aorta Diam: 3.6 cm LAV(MOD-bp): 47.4 ml LVAd ap4: 37.8 cm2 LAV(MOD-bp) Indexed: 24.2 ml/m2 LVLd ap4: 8.7 cm LAV(MOD-sp2): 46.2 ml EDV(MOD-sp4): 133.3 ml LAV(MOD-sp4): 48.0 ml EDV(sp4-el): 139.3 ml LVAs ap4: 22.0 cm2 LVLs ap4: 7.1 cm ESV(MOD-sp4): 56.3 ml ESV(sp4-el): 57.9 ml EF(MOD-sp4): 57.8 % EF(sp4-el): 58.4 % LVAd ap2: 28.9 cm2 SV(MOD-sp4): 77.0 ml SV(MOD-sp2): 54.2 ml LVLd ap2: 7.4 cm SI(MOD-sp4): 39.3 ml/m2 SI(MOD-sp2): 27.7 ml/m2 EDV(MOD-sp2): 92.6 ml EDV(sp2-el): 96.0 ml LVAs ap2: 16.9 cm2 LVLs ap2: 6.3 cm ESV(MOD-sp2): 38.4 ml ESV(sp2-el): 38.7 ml EF(MOD-sp2): 58.6 % SV(sp4-el): 81.4 ml Ao sinus diam: 2.[address] Junction: 2.3 cm LA dimension(2D): 3.5 cm LA A4 area: 17.7 cm2 RA A4 area: 10.3 cm2 TAPSE: 2.0 cm Time Measurements MV dec time: 0.25 sec Doppler Measurements & Calculations MV E max chaim: 80.1 cm/sec Lat Peak E' Chaim: 6.5 cm/sec Med Peak E' Chaim: 7.8 cm/sec MV A max chaim: 113.4 cm/sec E/E' lat: 12.2 E/E' med: 10.2 MV E/A: 0.71 MV dec slope: 322.2 cm/sec2 Ao V2 max: 366.6 cm/sec AI max chaim: 444.7 cm/sec Ao max P.8 mmHg AI max P.1 mmHg Ao V2 mean: 282.4 cm/sec AI dec slope: 290.0 cm/sec2 Ao mean P.6 mmHg AI P1/2t: 449.1 msec Ao V2 VTI: 81.1 cm AV (velocity ratio): 0.31 MONIKA(I,D): 1.0 cm2 MONIKA(V,D): 1.1 cm2 LV V1 max: 120.0 cm/sec SV(LVOT): 82.0 ml PA V2 max: 121.3 cm/sec LV V1 max P.8 mmHg PA max PG (full): 1.7 mmHg LV V1 mean P.5 mmHg LV V1 mean: 91.8 cm/sec LV V1 VTI: 25.2 cm TR max chaim: 233.4 cm/sec TR max P.8 mmHg ECHO/Echo Complete W/ Contrast Interpretation Summary The left ventricular ejection fraction is 60 %. Moderate aortic valve stenosis. Mean peak gradient 34 mmHg. Mild aortic valve r egurgitation Trivial pericardial effusion. The study was technically difficult. Ordering Physician: Kayla Steinberg Referring Physician: Kayla Steinberg MD Performed By: Bee Bain RDCS and Student
--- OUTSIDE RECORDS SUMMARY | 2024-04-24 15:14 | XMS RPT_ITS | CCD ---
Author Organization [facility] Care Team Providers Care Jet Aircraft Servicer Name Role Phone Nabil, Pilar Kalie Unavailable Unavailable Klonaris PROGRAM ADMINISTRATOR, Aimee Primary Care Provider [phone] SYSTEM, PROVIDER NOT IN Admitting UnavailCLEMENCIA Hudson Attending Unavailable LISA SWARTZ Referring Unavailabl e KLONARIS, AIMEE Primary Care Unavailable MUNDO SCHAEFFER Admitting Unavailab TANJA Chase Attending Unavailable LISA SWARTZ Referring Unavailabl e KLONARIS, AIMEE Primary Care Unavailable MUNDO SCHAEFFER Admitting Unavailab WILBERT Medina Attending Unavailable LISA SWARTZ Referring Unavailabl e KLONARIS, AIMEE Primary Care Unavailable DARIEN SETHI Admitting Unavailable CLEMENCIA MONTES Attending Unavailable DARIEN SETHI Referring Unavailable KLONARIS, AIMEE Primary Care Unavailable DARIEN SETHI Admitting Unavailable DARIEN SETHI Referring Unavailable KLONARIS, AIMEE Primary Care Unavailable WILBERT PALOMARES Attending Unavailable DARIEN SETHI Admitting Unavailable CLEMENCIA MONTES Attending Unavailable DARIEN SETHI Referring Unavailable KLONARIS, AIMEE Primary Care Unavailable DARIEN SETHI Admitting Unavailable GABRIELA JACOME Attending Unavailable DARIEN SETHI Referring Unavailable KLONARIS, AIMEE Primary Care Unavailable DARIEN SETHI Admitting Unavailable TANJA MCDONALD Attending Unavailable DARIEN SETHI Referring Unavailable KLONARIS, AIMEE Primary Care Unavailable DARIEN SETHI Admitting Unavailable TANJA MCDONALD Attending Unavailable DARIEN SETHI Referring Unavailable KLONARIS, AIMEE Primary Care Unavailable DARIEN SETHI Admitting Unavailable TANJA MCDONALD Attending Unavailable DARIEN SETHI Referring Unavailable KLONARIS, AIMEE Primary Care Unavailable DARIEN SETHI Admitting Unavailable TANJA MCDONALD Attending Unavailable DARIEN SETHI Referring Unavailable KLONARIS, AIMEE Primary Care Unavailable DARIEN SETHI Admitting Unavailable WARNES, TANJA Attending Unavailable DARIEN SETHI Referring Unavailable KLONARIS, AIMEE Primary Care Unavailable NAVDEEP, DARIEN Admitting Unavailable WARNES, TANJA Attending Unavailable JANAS, DARIEN Referring Unavailable KLONARIS, AIMEE Primary Care Unavailable JANDAYANARA, DARIEN Admitting Unavailable WARNES, TANJA Attending Unavailable JANDAYANARA, DARIEN Referring Unavailable KLONARIS, AIMEE Primary Care Unavailable JANDAYANARA, DARIEN Admitting Unavailable WARNES, TANJA Attending Unavailable JANAS, DARIEN Referring Unavailable KLONARIS, AIMEE Primary Care Unavailable NAVDEEP, DARIEN Admitting Unavailable WARNES, TANJA Attending Unavailable JANDAYANARA, DARIEN Referring Unavailable KLONARIS, AIMEE Primary Care Unavailable NAVDEEP, DARIEN Admitting Unavailable PALOMARES, WILBERT Attending Unavailable NAVDEEP, DARIEN Referring Unavailable KLONARIS, AIMEE Primary Care Unavailable DARIEN SETHI Admitting Unavailable PALOMARES, WILBERT Attending Unavailable NAVDEEP, DARIEN Referring Unavailable KLONARIS, AIMEE Primary Care Unavailable NAVDEEP, DARIEN Admitting Unavailable WARNES, TANJA Attending Unavailable JANDAYANARA, DARIEN Referring Unavailable KLONARIS, AIMEE Primary Care Unavailable DARIEN SETHI Admitting Unavailable PALOMARES, WILBERT Attending Unavailable JANDAYANARA, DARIEN Referring Unavailable KLONARIS, AIMEE Primary Care Unavailable DARIEN SETHI Admitting Unavailable WARNES, TANJA Attending Unavailable JANDAYANARA, DARIEN Referring Unavailable KLONARIS, AIMEE Primary Care Unavailable NAVDEEP, DARIEN Admitting Unavailable WARNES, TANJA Attending Unavailable JANDAYANARA, DARIEN Referring Unavailable KLONARIS, AIMEE Primary Care Unavailable DARIEN SETHI Admitting Unavailable WARNES, TANJA Attending Unavailable JANDAYANARA, DARIEN Referring Unavailable KLONARIS, AIMEE Primary Care Unavailable DARIEN SETHI Admitting Unavailable PALOMARES, WILBERT Attending Unavailable DARIEN SETHI Referring Unavailable KLONARIS, AIMEE Primary Care Unavailable DARIEN SETHI Admitting Unavailable CLEMENCIA MONTES Attending Unavailable NAVDEEP, DARIEN Referring Unavailable KLONARIS, AIMEE Primary Care Unavailable DARIEN SETHI Admitting Unavailable CLEMENCIA MONTES Attending Unavailable NAVDEEP, DARIEN Referring Unavailable KLONARIS, AIMEE Primary Care Unavailable DARIEN SETHI Admitting Unavailable PALOMARES, WILBERT Attending Unavailable NAVDEEP, DARIEN Referring Unavailable KLONARIS, AIMEE Primary Care Unavailable DARIEN SETHI Admitting Unavailable WARNES, TANJA Attending Unavailable NAVDEEP, DARIEN Referring Unavailable KLONARIS, AIMEE Primary Care Unavailable RINA ALAS Admitting Unavailable PALOMARES, WILBERT Attending Unavailable DARIEN SETHI Referring Unavailable KLONARIS, AIMEE Primary Care Unavailable JANDAYANARA, DARIEN Admitting Unavailable WARNES, TANJA Attending Unavailable JANDAYANARA, DARIEN Referring Unavailable KLONARIS, AIMEE Primary Care Unavailable JANDAYANARA, DARIEN Admitting Unavailable WARNESJIMENAEE Attending Unavailable JANDAYANARA, DARIEN Referring Unavailable KLONARIS, AIMEE Primary Care Unavailable JANDAYANARA, DARIEN Admitting Unavailable GEORGI COUGHLIN Attending Unavailable JANDAYANARA, DARIEN Referring Unavailable KLONARIS, AIMEE Primary Care Unavailable JANDAYANARA, DARIEN Admitting Unavailable PALOMARES, WILBERT Attending Unavailable JANDAYANARA, DARIEN Referring Unavailable KLONARIS, AIMEE Primary Care Unavailable JANDAYANARA, DARIEN Admitting Unavailable WARNES, TANJA Attending Unavailable JANDAYANARA, DARIEN Referring Unavailable KLONARIS, AIMEE Primary Care Unavailable JANDAYANARA, DARIEN Admitting Unavailable WARNES, TANJA Attending Unavailable JANDAYANARA, DARIEN Referring Unavailable KLONARIS, AIMEE Primary Care Unavailable NAVDEEP, DARIEN Admitting Unavailable PALOMARES, WILBERT Attending Unavailable JANDAYANARA, DARIEN Referring Unavailable KLONARIS, AIMEE Primary Care Unavailable NAVDEEP, DARIEN Admitting Unavailable WARNES, TANJA Attending Unavailable JANDAYANARA, DARIEN Referring Unavailable KLONARIS, AIMEE Primary Care Unavailable Pilar Ferrer Unavailable Unavailable Unavailable Nabil BIODIESEL PLANT MANAGER.Pilar BARRETO Primary Care Provider Nabil BIODIESEL PLANT MANAGER.Pilar BARRETO Primary Care Provider Nabil BIODIESEL PLANT MANAGER.Pilar BARRETO Primary Care Provider Dr. Sesar Quinones Admitting Unavailable Joni, Dr. Sesar Magallon Attending Unavailable Nabil, MsLu Shepard Primary Care Charli Ferrer, Ms. Pilar Shepard Referring Charli Ferrer, MsLu Shepard Primary Care Charli Ferrer, MsLu Shepard Attending Charli Ferrer, MsLu Shepard Primary Care Charli Ferrer, MsLu Shepard Attending Charli Ferrer BIODIESEL PLANT MANAGER.Pilar BARRETO Primary Care Provider Jenise Rios Unavailable Jah Awa Taniya Unavailable [phone] [place] Gonzalez Sr. Unavailable PILAR FERRER FERDINAND Primary Care Unavailabl e ERIKA EASON Attending Unavailable NABIL, PILAR FERDINAND Primary Care Unavailabl e NABIL, PILAR FERDINAND Primary Care Unavailabl e NABIL, PILAR FERDINAND Primary Care Unavailabl e Carlos Guillermo, [place] GARCIA Unavailable PILAR FERRER Attending Unavailable NABILMIGUEPILAR M Primary Care Unavailable DONELL OLIVERA Attending Unavailable SELF Referring Unavailable MIGUE FERRERLENE M Primary Care Unavailable ROSI FERRERE M Attending Unavailable SELF Referring Unavailable NABILMIGUE MARTINEZLENE M Primary Care Unavailable NABIL PILAR M Referring Unavailable NABIL PILAR M Primary Care Unavailable NABIL PILAR M Referring Unavailable NABIL, PILAR M Primary Care Unavailable Allergies Allergy Classification Reported Allergen(s) Allergy Type Date of Onset Reaction(s) Facility Acetaminophen / HYDROcodone (7 sources) Acetaminophen / HYDROcodone Drug Allergy 5 [facility] (20 sources) Acetaminophen / HYDROcodone; Translations: [HYDROCODONE-ACET AMINOPHEN] Drug Allergy 5 GI Upset [facility] (1 source) Tape 1 X5YD TAPE; Translations: [Tape 1 X5YD TAPE] Allergy to drug (finding) [facility] Work Phone: (1 source) Dust Mite Extract SOLN; Translations: [Dust Mite Extract SOLN] Allergy to drug (finding) [facility] Work Phone: (20 sources) Adhesive Tape; Translations: [ADHESIVE TAPE (ROSINS)] Allergy to substance 5 Rash [facility] (20 sources) Mold Extract; Translations: [MOLD] Drug Allergy 2 Unknown [facility] (20 sources) pitavastatin; Translations: [PITAVASTATIN] Drug Allergy 3 Other: See Comments [facility] Work Phone: (20 sources) Sulfonamides (Antibiotic); Translations: [SULFA (SULFONAMIDE ANTIBIOTICS)] Propensity to adverse reactions to drug 2 Unknown [facility] (20 sources) celecoxib; Translations: [CELECOXIB] Drug Allergy 7 Other: See Comments [facility] (2 sources) HYDROcodone; Translations: [HYDROCODONE] Drug Allergy 7 [facility] 2 Repository (1 source) ALLERGIES NOT ON FILE; Translations: [ALLERGIES NOT ON FILE] Propensity to adverse reactions (disorder) [facility] Repository (1 source) Adhesive agent Drug Allergy 7 Rash [facility] Medications Current Medications Medication Drug Class(es) Dates Sig (Normalized) Sig (Original) [id number] 200 actuat albuterol 0.09 mg/actuat metered dose inhaler (20 sources) beta2-Adrenergic Agonist Start: 11-30-2023 take 2 puff(s) by inhalation every four hours as needed for wheezing albuterol HFA (PROVENTIL HFA, VENTOLIN HFA) 90 mcg/actuation inhaler Inhale 2 Puffs as instructed every 4 hours as needed for wheezing/shortnes s of breath. 1 Each 5 11/30/2023 Active Start: 08-30-2018 End: 11-30-2023 take 2 puff(s) by inhalation every six hours as needed albuterol HFA (PROAIR HFA) 90 mcg/actuation inhaler Indications: Allergic rhinitis, unspecified seasonality, unspecified trigger Inhale 2 Puffs as instructed every 6 hours as needed. 1 Each 5 11/30/2023 11/30/2023 Discontinued Comment on above: Inhale 2 Puffs as in structed every 6 hours as needed. amLODIPine 5 mg oral tablet (20 sources) Dihydropyridine Calcium Channel Cathleen Start: 3 End: 4 take 1 tablet by mouth once daily amLODIPine (NORVASC) 5 mg tablet Take 1 tablet by mouth once daily 90 tablet 01/27/2024 Active Start: 06-29-2014 End: 07-29-2022 take 1 tablet by mouth once daily amLODIPine (NORVASC) 5 mg tablet Take 1 tablet by mouth once daily 90 tablet 0 07/29/2022 Active Comment on above: Take 1 tablet by wilner th once daily. Take 1 tablet by wilner th once daily benzonatate 100 mg oral capsule (15 sources) Non-narcotic Antitussive Start: End: take 1 capsule by mouth every eight hours as needed benzonatate (TESSALON PERLES) 100 mg capsule Take 1 capsule by mouth three times a day as needed for cough. 45 capsule 11/30/2023 02/22/2024 Discontinued (Other) Start: 06-12-2022 End: 09-30-2022 take 1 capsule by mouth every eight hours as needed benzonatate (TESSALON PERLES) 100 mg capsule Take 1 capsule by mouth three times daily as needed for cough. 45 capsule 0 06/12/2022 09/30/2022 Discontinued Start: 05-04-2022 take 1 capsule by mo ut every eight hours as needed benzonatate (TESSALON PERLES) 100 mg capsule Take 1 capsule by mouth three times daily as needed for cough. 45 capsule 0 05/04/2022 Active Comment on above: Take 1 capsule by mo uth three times daily as needed for cough. celecoxib 200 mg oral capsule (20 sources) Nonsteroidal Anti-inflammatory Drug take 1 capsule by mouth twice daily celecoxib (CELEBREX) 200 MG capsule Take 200 mg by mouth 2 (two) times a day. 0 Active cetirizine hydrochloride 10 mg oral tablet (20 sources) Histamine-1 Receptor Antagonist Start : 05-14 End: 03-20 take 1 tablet by mouth once daily cetirizine (ALLERGY RELIEF, CETIRIZINE,) 10 mg tablet Indications: Allergic rhinitis, unspecified seasonality, unspecified trigger Take 1 tablet by mouth once daily 90 tablet 1 03/20/2024 Active Comment on above: Take 1 tablet by wilner th once daily. Take 1 tablet by wilner th once daily ergocalciferol 1.25 mg oral capsule (20 sources) Provitamin D2 Compound take 1 capsule by mouth every week ergocalciferol (VITAMIN D2) 50,000 unit capsule Take 50,000 Units by mouth once a week. 0 Active estrogens, conjugated (detention) 0.3 mg / medroxyPROGESTERone acetate 1.5 mg oral tablet (20 sources) Progestin, Estrogen take 0.3-1.5 mg by mouth once estrogen, conjugated,-medroxyPROGE STERone (PREMPRO) 0.3-1.5 mg per tablet Take 1 tablet by mouth daily. 0 Active fluticasone propionate 0.05 mg/actuat metered dose nasal spray (20 sources) Corticosteroid Start : 08-13 fluticasone (FLONASE) 50 mcg/actuation nasal spray hydroCHLOROthiazide 12.5 mg oral tablet (20 sources) Thiazide Diuretic Start : 03-30 End: 03-20 take 1 tablet by mouth once daily hydroCHLOROthiazide 12.5 mg tablet Indications: Primary hypertension Take 1 tablet by mouth once daily 90 tablet 1 03/20/2024 Active Start: 05-14-2021 End: 12-22-2022 take 1 tablet by mouth once daily hydroCHLOROthiazide 12.5 mg tablet Indications: Primary hypertension Take 1 tablet by mouth once daily. 90 tablet 0 12/22/2022 Active Start: 05-07-2020 hydroCHLOROthi azide 12.5 MG Oral Tablet Quantity: 0 Refills: 0 Ordered: 07-May-2020 DO Start : 07-May-2020 Active Comment on above: Take 1 tablet by wilner th once daily. Take 1 tablet by wilner th once daily hydroCHLOROthiazide 25 mg / losartan potassium 100 mg oral tablet (20 sources) Thiazide Diuretic, Angiotensin 2 Receptor Cathleen Start: 2014 losartan-hydrochlorothi azide (HYZAAR) 100-25 mg per tablet hydroxychloroquine sulfate 200 mg oral tablet (20 sources) Antimalarial, Antirheumatic Agent Start: 2019 take 1 tablet by mouth twice daily hydrOXYchloroQUINE (PLAQUENIL) 200 mg tablet Take 200 mg by mouth two times a day. 01/30/2020 Active Start: 01-30-2020 take 1 tablet by wilner th once daily hydrOXYchloroQUINE (PLAQUENIL) 200 mg tablet TAKE 1 & 1 2 (ONE & ONE HALF) TABLETS BY MOUTH ONCE DAILY 0 01/30/2020 Active Hydroxychloroqui ne Sulfate TABS 300 mg daily Quantity: 0 Refills: 0 Ordered: 11-Nov-2020 DO Active Comment on above: TAKE 1 & 1 2 (ONE & ONE HALF) TABLETS BY MOUTH ONCE DAILY leflunomide 10 mg oral tablet (1 source) Antirheumatic Agent Start: take 0.5 tablet by mouth once leflunomide (ARAVA) 10 mg tablet Take 0.5 tablets by mouth every afternoon. 04/05/2024 Active losartan potassium 100 mg oral tablet (20 sources) Angiotensin 2 Receptor Cathleen Start: 3 End: 4 take 1 tablet by mouth once daily losartan (COZAAR) 100 mg tablet Take 1 tablet by mouth once daily 90 tablet 01/26/2024 Active Start: 05-14-2021 End: 12-22-2022 take 1 tablet by mouth once daily losartan (COZAAR) 100 mg tablet Take 1 tablet by mouth once daily. 90 tablet 0 12/22/2022 Active Start: 09-03-2020 Losartan Potas sium 100 MG Oral Tablet Quantity: 0 Refills: 0 Ordered: 03-Sep-2020 DO Start : 03-Sep-2020 Active Comment on above: Take 1 tablet by wilner th once daily Take 1 tablet by wilner th once daily. nirmatrelvir tablet 300 mg (150 mg x 2) and ritonavir tablet 100 mg in a dose pack (PAXLOVID) (1 source) Start: 06-12-20 End: 06-17-20 22 nirmatrelvir tablet 300 mg (150 mg x 2) and ritonavir tablet 100 mg in a dose pack (PAXLOVID) Indications: COVID-19 Administer TWO pink nirmatrelvir 150 mg tablets and ONE white ritonavir 100 mg tablet for a total of three tablets twice daily. 30 tablet 0 06/12/2022 06/17/2022 Active Comment on above: Administer TWO pink nirmatrelvir 150 mg tablets and ONE white ritonavir 100 mg tablet for a total of three tablets twice daily. omeprazole 40 mg delayed release oral capsule (20 sources) Proton Pump Inhibitor Start: 06-29-19 15 End: 12-01-19 take 1 capsule by mouth once daily omeprazole (PRILOSEC) 40 mg capsule Indications: Gastroesophageal reflux disease without esophagitis Take 1 capsule by mouth once daily. 90 capsule 3 12/01/2023 Active Comment on above: Take 1 capsule by mo [facility] once daily. Take 1 capsule by mo [facility] once daily perflutren lipid microspheres 1.3 mL in NaCl (PF) 0.9% 10 mL injection (DEFINITY) (20 sources) Start: 10-01-19 23 End: 12-30-19 24 perflutren lipid microspheres 1.3 mL in NaCl (PF) 0.9% 10 mL injection (DEFINITY) predniSONE 20 mg oral tablet (9 sources) Start: 02-22-20 take 2 tablets by mouth once daily predniSONE (DELTASONE) 20 mg tablet Indications: Right wrist pain , Chronic pain of right ankle Take 2 tablets by mouth once daily. 10 tablet 02/22/2024 Active Start: 05-04-2022 End: 09-30-2022 predniSONE (DELTASONE) 20 mg tablet Indications: Sore throat , Viral illness 3 tabs for 3 days, 2 tabs for 3 days and 1 tab for 3 days. 18 tablet 0 05/04/2022 09/30/2022 Discontinued Comment on above: 3 tabs for 3 days, 2 tabs for 3 days and 1 tab for 3 days. 125 ml sodium chloride 9 mg/ml prefilled syringe (20 sources) Start: 10-01-19 End: 12-30-19 sodium chloride 0.9 % (flush) 10 mL (BD POSIFLUSH) traMADol hydrochloride 50 mg oral tablet (3 sources) Opioid Agonist Start: 01-13-20 take 1 tablet by mouth every eight hours as needed traMADol (ULTRAM) 50 mg tablet Take 50 mg by mouth three times a day as needed. 01/13/2024 Active valACYclovir 1000 mg oral tablet (1 source) Herpesvirus Nucleoside Analog DNA Polymerase Inhibitor, Herpes Simplex Virus Nucleoside Analog DNA Polymerase Inhibitor, Herpes Zoster Virus Nucleoside Analog DNA Polymerase Inhibitor Start: 04-19-20 End: 04-26-20 24 take 1 tablet by mouth twice daily valACYclovir (VALTREX) 1 gram tablet Indications: Herpes zoster without complication Take 1 tablet by mouth two times a day for 7 days. 14 tablet 04/19/2024 04/26/2024 Active venlafaxine 75 mg oral tablet (20 sources) Serotonin and Norepinephrine Reuptake Inhibitor Start: 10-01-19 End: 11-30-19 take 1 tablet by mouth once daily venlafaxine (EFFEXOR) 75 mg tablet Indications: Anxiety and depression Take 1 tablet by mouth once daily. 90 tablet 3 11/30/2023 Active Start: 05-14-2021 End: 09-30-2022 take 1 tablet by mouth twice daily venlafaxine (EFFEXOR) 75 mg tablet Indications: Anxiety and depression Take 1 tablet by mouth twice daily. 180 tablet 1 05/14/2021 09/30/2022 Discontinued Comment on above: Take 1 tablet by wilner th twice daily. Take 1 tablet by wilner th once daily. Completed/Discontinued Medications Medication Drug Class(es) Dates Sig (Normalized) Sig (Original) baclofen 10 mg oral tablet (1 source) gamma-Aminobutyri c Acid-ergic Agonist Start: 11-11-2020 take 1 tablet by mouth twice daily as needed Baclofen 10 MG Oral Tablet TAKE 1 TABLET Twice daily PRN Quantity: 60 Refills: 0 Ordered: 11-Nov-2020 Dread Gupta MD Start : 11-Nov-2020 Active Vitamin B 12 TABS (1 source) Vitamin B 12 TAB S 1000 mcg daily Quantity: 0 Refills: 0 Ordered: 11-Nov-2020 DO Active Vitamin C TABS (1 source) Vitamin C TABS 1000 mg daily Quantity: 0 Refills: 0 Ordered: 11-Nov-2020 DO Active Vitamin D-3 CAPS (1 source) Vitamin D-3 CAPS 50 mg daily Quantity: 0 Refills: 0 Ordered: 11-Nov-2020 DO Active Zinc (1 source) Zinc TABS 5 mg daily Quantity: 0 Refills: 0 Ordered: 11-Nov-2020 DO Active Problems Active Problems Problem Classification Problem Date Documented Da te Episodic/Chronic Allergic reactions (1 source) Allergy status to sulfonamides status; Translations: [Allergy status to sulfonamides] Onset: 3 Episodic Anxiety disorders (20 sources) Mixed anxiety and depressive disorder; Translations: [Anxiety disorder, unspecified] Onset: 8 08-11-2017 Chronic Chronic kidney disease (20 sources) Chronic kidney disease stage 3; Translations: [Stage 3 chronic kidney disease, unspecified whether stage 3a or 3b CKD (HCC)] Onset: 3 Chronic Chronic kidney disease (1 source) Chronic kidney disease; Translations: [Stage 3 chronic kidney disease, unspecified whether stage 3a or 3b CKD (HCC)] Onset: 3 Disorders of lipid metabolism (20 sources) Hyperlipidemia; Translations: [Hyperlipidemia, unspecified] Onset: 5 08-20-2014 Chronic Diverticulosis and diverticulitis (1 source) Diverticulosis of large intestine without perforation or abscess without bleeding; Translations: [Dvrtclos of lg int w/o perforation or abscess w/o bleeding] Onset: 3 Chronic Esophageal disorders (8 sources) Gastroesophageal reflux disease without esophagitis; Translations: [Gastro-esophageal reflux disease without esophagitis] Chronic Essential hypertension (20 sources) Hypertensive disorder; Translations: [Essential (primary) hypertension] Onset: 5 08-20-2014 Chronic Gastrointestinal hemorrhage (2 sources) Melena; Translations: [Melena] Onset: 3 Episodic Genitourinary symptoms and ill-defined conditions (4 sources) History of chronic renal impairment; Translations: [Personal history of other specified urinary system disorders] Onset: 4 Episodic Heart valve disorders (20 sources) Nonrheumatic aortic (valve) stenosis; Translations: [Aortic valve disorders] Onset: 6 11-12-2015 Chronic Hemorrhoids (1 source) Second degree hemorrhoids; Translations: [Second degree hemorrhoids] Onset: 3 Episodic Immunizations and screening for infectious disease (1 source) Patient encounter status; Translations: [Encounter for screening for other viral diseases] Episodic Mood disorders (1 source) Mood disorders; Translations: [Anxiety and depression] Onset: 8 Nutritional deficiencies (3 sources) Vitamin D deficiency; Translations: [Vitamin D deficiency, unspecified] Onset: 4 Chronic Osteoarthritis (20 sources) Osteoarthritis of right knee joint; Translations: [Unilateral primary osteoarthritis, right knee] Onset: 1 Chronic Other acquired deformities (2 sources) Acquired deformity of clavicle; Translations: [Other specified acquired deformities of musculoskeletal system] 11-30-2023 Episodic Other aftercare (2 sources) Other manager terminal (current) drug therapy; Translations: [Other penitentiary (current) drug therapy] Onset: 4 Episodic Other circulatory disease (1 source) H/O: hypertension; Translations: [Personal history of other diseases of circulatory system] Episodic Other circulatory disease (1 source) Carotid bruit; Translations: [Other specified symptoms and signs involving the circulatory and respiratory systems] Episodic Other circulatory disease (3 sources) Other specified symptoms and signs involving the circulatory and respiratory systems; Translations: [Oth symptoms and signs involving the circ and resp systems] Onset: 3 Episodic Other connective tissue disease (2 sources) History of arthroplasty of right knee; Translations: [Presence of right artificial knee joint] Chronic Other connective tissue disease (20 sources) History of total knee arthroplasty; Translations: [Presence of right artificial knee joint] Onset: 1 Chronic Other connective tissue disease (2 sources) Artificial knee joint present; Translations: [Presence of right artificial knee joint] Chronic Other connective tissue disease (1 source) Presence of unspecified artificial hip joint; Translations: [Presence of unspecified artificial hip joint] Onset: 3 Chronic Other connective tissue disease (1 source) Presence of unspecified artificial knee joint; Translations: [Presence of unspecified artificial knee joint] Onset: 3 Chronic Other connective tissue disease (1 source) Chronic neuropathic pain; Translations: [Neuralgia, neuritis, and radiculitis, unspecified] Episodic Other connective tissue disease (1 source) Fibromyalgia; Translations: [Myalgia and myositis, unspecified] Episodic Other connective tissue disease (1 source) Spasm; Translations: [Spasm of muscle] Episodic Other connective tissue disease (1 source) H/O: arthritis; Translations: [Personal history of arthritis] Episodic Other gastrointestinal disorders (1 source) History of gastroesophageal reflux disease; Translations: [Personal history of other diseases of digestive system] Episodic Other inflammatory condition of skin (2 sources) Subacute cutaneous lupus erythematosus; Translations: [Subacute cutaneous lupus erythematosus] Onset: 4 Chronic Other nervous system disorders (1 source) Other chronic pain; Translations: [Chronic pain of right ankle] Onset: 4 Chronic Other nervous system disorders (1 source) H/O: glaucoma; Translations: [Personal history of other disorders of nervous system and sense organs] Episodic Other non-traumatic joint disorders (1 source) Pain of right wrist; Translations: [Pain in right wrist] 02-22-2024 Episodic Other non-traumatic joint disorders (1 source) Chronic ankle pain; Translations: [Pain in right ankle and joints of right foot] 02-22-2024 Episodic Other non-traumatic joint disorders (1 source) Pain in right wrist; Translations: [Right wrist pain] Onset: 4 Episodic Other non-traumatic joint disorders (1 source) Pain in right ankle and joints of right foot; Translations: [Chronic pain of right ankle] Onset: 4 Episodic Other nutritional; endocrine; and metabolic disorders (20 sources) Body mass index 30+ - obesity; Translations: [Obesity, unspecified] Onset: 6 11-12-2015 Chronic Other upper respiratory disease (20 sources) Allergic rhinitis; Translations: [Allergic rhinitis, unspecified] Onset: 2 08-11-2017 Chronic Other upper respiratory disease (1 source) Allergic rhinitis, unspecified; Translations: [Allergic rhinitis, unspecified seasonality, unspecified trigger] Onset: 8 Chronic Residual codes; unclassified (1 source) Acquired absence of other specified parts of digestive tract; Translations: [Acquired absence of other specified parts of digestive tract] Onset: 3 Episodic Residual codes; unclassified (1 source) Postmenopausal state; Translations: [Asymptomatic menopausal state] 11-30-2023 Episodic Rheumatoid arthritis and related disease (4 sources) Inflammatory polyarthropathy; Translations: [Inflammatory polyarthropathy (Multi)] Onset: 3 Chronic Screening and history of mental health and substance abuse codes (1 source) H/O: depression; Translations: [Personal history of other mental disorders] Episodic Spondylosis; intervertebral disc disorders; other back problems (2 sources) Lumbosacral spondylosis without myelopathy; Translations: [Lumbosacral spondylosis without myelopathy] Chronic Spondylosis; intervertebral disc disorders; other back problems (2 sources) Neurogenic claudication; Translations: [Spinal stenosis, lumbar region, with neurogenic claudication] Episodic Systemic lupus erythematosus and connective tissue disorders (2 sources) Lupus erythematosus; Translations: [Systemic lupus erythematosus] Onset: 3 Chronic Urinary tract infections (2 sources) Acute cystitis with hematuria; Translations: [Acute cystitis with hematuria] Onset: 4 Episodic Viral infection (2 sources) Herpes zoster without complication; Translations: [Zoster without complications] Onset: 4 04-19-2024 Episodic Past or Other Problems Problem Classification Problem Date Documented Date Episodic/Chronic Other acquired deformities (1 source) Other specified acquired deformities of musculoskeletal system; Translations: [Acquired clavicle deformity] Onset: 11-30-2023 Episodic Other lower respiratory disease (20 sources) Chronic cough; Translations: [Chronic cough] Onset: 03-03-2012 03-03-2012 Episodic Other screening for suspected conditions (not mental disorders or infectious disease) (20 sources) Electrocardiogram abnormal; Translations: [Abnormal electrocardiogram [ECG] [EKG]] Onset: 11-15-2014 11-15-2014 Episodic Residual codes; unclassified (1 source) Asymptomatic menopausal state; Translations: [Post-menopausal] Onset: 11-30-2023 Episodic Results Test Name Value Interpretation Reference Range Facility CNCOon 04-19-2024 CNCO Letter Text Normal [facility] CNOVon 04-19-2024 CNOV Office Visit (AGFAMP LE) -- BRANDON MURO ([id number]) 1945 F Date Time Provider Department 04/19/24 11:00 AM DONELL OLIVERA During your visit today, we recorded the following information about you: Temperature Pulse Blood pressure Weight 98 degrees 85/minute 126/72 98 kg Height 1.562 m Donell Olivera APRN.MARY LOU 04/23/2024 10:31 PM Signed Subjective Brandonponce Muro is a 78 year old female here today for rash. I reviewed past medical, surgical, social, and family histories today and updated chart. Allergies, chronic medications, and supplements were also reviewed. 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 GERD (gastroesophageal reflux disease) Glaucoma 10/2013 Angular glaucoma with laser bilaterally. Hypertension 1989 Vitamin D deficiency PAST SURGICAL HISTORY Procedure Laterality Date ANESTH, SECTION 1966 APPENDECTOMY ARTHRP ACETBLR/PROX FEM PROSTC AGRFT/ALGRFT 2010 CATARACT SURGERY, COMPLEX Bilateral 11/27/2019 DELIVERY ONLY 1965,1965 CHOLECYSTECTOMY HEART CATHETERIZATION 2000 LUMPECTOMY/RADIOTHERAPY DIAG MAMM/A10 OPEN MINI-LAPAROTOMY W/LYSIS ADHESIONS PAST SURGICAL HISTORY OF 10/2012 skin biopsy PAST SURGICAL HISTORY OF 10/2013 laser for angular glaucoma ROTATOR CUFF REPAIR right ALLERGIES Celecoxib, Mold, Pitavastatin, Sulfa (Sulfonamide Antibiotics), Tape [Adhesive Tape (Rosins)], and Vicodin [Hydrocodone-Acetaminophen ] MEDICATIONS leflunomide (ARAVA) 10 mg tablet Take 0.5 tablets by mouth every afternoon. hydroCHLOROthiazide 12.5 mg tablet Take 1 tablet by mouth once daily cetirizine (ALLERGY RELIEF, CETIRIZINE,) 10 mg tablet Take 1 tablet by mouth once daily traMADol (ULTRAM) 50 mg tablet Take 50 mg by mouth three times a day as needed. predniSONE (DELTASONE) 20 mg tablet Take 2 tablets by mouth once daily. amLODIPine (NORVASC) 5 mg tablet Take 1 tablet by mouth once daily losartan (COZAAR) 100 mg tablet Take 1 tablet by mouth once daily omeprazole (PRILOSEC) 40 mg capsule Take 1 capsule by mouth once daily. venlafaxine (EFFEXOR) 75 mg tablet Take 1 tablet by mouth once daily. (Patient taking differently: Take 75 mg by mouth two times a day.) albuterol HFA (PROVENTIL HFA, VENTOLIN HFA) 90 mcg/actuation inhaler Inhale 2 Puffs as instructed every 4 hours as needed for wheezing/shortness of breath. hydrOXYchloroQUINE (PLAQUENIL) 200 mg tablet Take 200 mg by mouth two times a day. FAMILY HISTORY Problem Relation Age of Onset Hypertension Mother Cancer Mother Skin Diabetes Mother Hypertension Father Cancer Father Skin COPD Father Heart Father Diabetes Sister Hypertension Brother Hypertension Sister Social History Tobacco Use Smoking status: Former Current packs/day: 0.00 Average packs/day: 1 pack/day for 8.0 years (8.0 ttl pk-yrs) Types: Cigarettes Start date: 06/28/1972 Quit date: 06/28/1980 Years since quittin.8 Smokeless tobacco: Never Tobacco comments: No one in household smokes Substance Use Topics Alcohol use: No Drug use: No Review of Systems Constitutional: Negative for appetite change, chills, fatigue, fever and unexpected weight change. HENT: Negative for congestion, ear pain, rhinorrhea and sore throat. Eyes: Negative for pain, discharge, itching and visual disturbance. Respiratory: Negative for cough, shortness of breath and wheezing. Cardiovascular: Negative for chest pain, palpitations and leg swelling. Gastrointestinal: Negative for abdominal pain, constipation, diarrhea, nausea and vomiting. Genitourinary: Negative for difficulty urinating. Musculoskeletal: Positive for arthralgias and myalgias. Skin: Positive for rash. Neurological: Negative for dizziness, tremors, weakness and headaches. Psychiatric/Behavioral: Negative for dysphoric mood and sleep disturbance. The patient is not nervous/anxious. Objective BP 126/72 Pulse 85 Temp 98 Ht 5' 1.5 (1.56m) Wt 216 lb (98.0kg) SpO2 98% BMI 40.16 kg/(m2). Physical Exam Constitutional: Appearance: Normal appearance. She is not toxic-appearing or diaphoretic. HENT: Head: Normocephalic and atraumatic. Hair is normal. Right Ear: External ear normal. Left Ear: External ear normal. Nose: Nose normal. Mouth/Throat: Lips: [place]. No lesions. Mouth: Mucous membranes are moist. No oral lesions. Tongue: No lesions. Pharynx: Or (more content not included)... [facility] Visit (AGINTM LW) -- BRANDON MURO ([id number]) 1945 F Date Time Provider Department 02/22/24 8:00 AM PILAR FERRER AGINTMLW During your visit today, we recorded the following information about you: Pulse Respiration Blood pressure Weight 76/minute 16/minute 120/72 96.2 kg Height 1.562 m Pilar Ferrer, JULIO.PROGRAM ADMINISTRATOR 02/22/2024 8:46 AM Signed This note was created using Farmig[employer]. Subjective Brandon Muro is a 78 year old female here today for acute visit for right wrist and right ankle pain. Right Wrist pain: started 3-4 wks ago. Medial aspect wrist. Pain is constant aching with episodic shooting, stabbing pain. Starts in wrist and radiates to mid forearm and down into her 5th digit. Denies numbness or tingling, injury. She has tried tramadol she takes for her lupus and states it does not help. Tylenol does not help either. Denies precipitating or relieving factors. States the shooting pain can occur anytime at rest or with movement. Sharp pain is quick and ends quickly. Denies injury or swelling or redness Right ankle pain: reports similar pain as her wrist. Started in September. Starts front of ankle and radiates towards her toes. This has been occurring on and off since September. Pain is not continuous. States it occurs when she moves her foot toward her body. Aching with occasional sharp stabbing pain. Resolves on its own. Denies precipitating or relieving factors. Can occur anytime and resolves on its own. Denies injury, swelling, redness, numbness or tingling ALLERGIES Allergen Reactions Celecoxib Other: See Comments Mold Unknown Pitavastatin Other: See Comments Drug induced lupus. Sulfa (Sulfonamide * Unknown Took for bladder infection and infection became worse. Tape [Adhesive Tape* Rash Vicodin [Hydrocodon* GI Upset Current Outpatient Medications Medication Sig Dispense Refill traMADol (ULTRAM) 50 mg tablet Take 50 mg by mouth three times a day as needed. amLODIPine (NORVASC) 5 mg tablet Take 1 tablet by mouth once daily 90 tablet 0 losartan (COZAAR) 100 mg tablet Take 1 tablet by mouth once daily 90 tablet 0 omeprazole (PRILOSEC) 40 mg capsule Take 1 capsule by mouth once daily. 90 capsule 3 venlafaxine (EFFEXOR) 75 mg tablet Take 1 tablet by mouth once daily. 90 tablet 3 albuterol HFA (PROVENTIL HFA, VENTOLIN HFA) 90 mcg/actuation inhaler Inhale 2 Puffs as instructed every 4 hours as needed for wheezing/shortness of breath. 1 Each 5 hydroCHLOROthiazide 12.5 mg tablet Take 1 tablet by mouth once daily 90 tablet 1 ALLERGY RELIEF, CETIRIZINE, 10 mg tablet Take 1 tablet by mouth once daily 90 tablet 1 hydrOXYchloroQUINE (PLAQUENIL) 200 mg tablet Take 200 mg by mouth two times a day. benzonatate (TESSALON PERLES) 100 mg capsule Take 1 capsule by mouth three times a day as needed for cough. (Patient not taking: Reported on 02/22/2024) 45 capsule 0 No current facility-administered medications for this visit. ACTIVE PROBLEM LIST Chronic Cough Allergic Rhinitis Hyperlipidemia Hypertension Abnormal Ecg Mild Aortic Stenosis Obesity (Bmi 35.0-39.9 Without Comorbidity) Anxiety and Depression Stage 3 Chronic Kidney Disease (Hcc) PAST MEDICAL HISTORY No date: Allergic rhinitis No date: DJD (degenerative joint disease) Comment: in the spine and knees 10/2012: Drug-induced lupus erythematosus Comment: Pitavastatin (livalo). 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 1989: Hypertension No date: Vitamin D deficiency PAST SURGICAL HISTORY 1965: ANESTH, SECTION No date: APPENDECTOMY 2011: ARTHRP ACETBLR/PROX FEM PROSTC AGRFT/ALGRFT 11/27/2019: CATARACT SURGERY, COMPLEX; Bilateral No date: DELIVERY ONLY Comment: 1964,1965 No date: CHOLECYSTECTOMY 1999: HEART CATHETERIZATION No date: LUMPECTOMY/RADIOTHERAPY DIAG MAMM/A10 No date: OPEN MINI-LAPAROTOMY W/LYSIS ADHESIONS 10/2012: PAST SURGICAL HISTORY OF Comment: skin biopsy 10/2013: PAST SURGICAL HISTORY OF Comment: laser for angular glaucoma No date: ROTATOR CUFF REPAIR Comment: right Social History Tobacco Use Smoking status: Former Current packs/day: 0.00 Average packs/day: 1 pack/day for 8.0 years (8.0 ttl pk-yrs) Types: Cigarettes Start date: 06/28/1972 Quit date: 06/28/1980 Years since quittin.6 Smokeless tobacco: Never Tobacco comments: No one in household smokes Substance Use Topics Alcohol use: No Drug use: No Family History Problem Relation Age of Onset Hypertension Mother Cancer Mother Skin Diabetes Mother Hypertension Father Cancer Father Skin COPD Father Heart Father Diabetes Sister Hypertension Brother Hypertension Sister Review of Systems Constitutional: Negative for chills, fatigue and fever. Respiratory: Negative for cough, sh (more content not included)... Normal [facility] CBC W Auto Differential pane l (Bld)on 01-06-2024 Basophils (Bld) [#/Vol] 0.07 x10*3/uL Normal 0.00-0.10 [facility] Comment on above: Performed By: #### 5 7021-8 #### NEERAJ BARTON ([id number]) [facility] ([facility]) [address] [place] [address] 37736 Basophils/100 WBC (Bld) 1.1 % Normal 0.0-2.0 [facility] Comment on above: Performed By: #### 5 7021-8 #### NEERAJ BARTON ([id number]) [facility] ([facility]) [address] [place] [address] 06220 Eosinophils (Bld) [#/Vol] 0.46 x10*3/uL High 0.00-0.40 [facility] Comment on above: Performed By: #### 5 7021-8 #### NEERAJ BARTON ([id number]) [facility] ([facility]) [address] [place] [address] 29690 Eosinophils/100 WBC (Bld) 7.0 % Normal 0.0-6.0 [facility] Comment on above: Performed By: #### 5 7021-8 #### NEERAJ BARTON ([id number]) [facility] ([facility]) [address] [place] [address] 62796 Erythrocyte distribution width (RBC) [Ratio] 14.3 % Normal 11.5-14.5 [facility] Comment on above: Performed By: #### 5 7021-8 #### NEERAJ BARTON ([id number]) [facility] ([facility]) [address] [place] [address] 19649 Hematocrit (Bld) [Volume fraction] 42.6 % Normal 36.0-46.0 [facility] Comment on above: Performed By: #### 5 7021-8 #### NEERAJ BARTON ([id number]) [facility] ([facility]) [address] [place] [address] 83340 Hemoglobin (Bld) [Mass/Vol] 13.2 g/dL Normal 12.0-16.0 [facility] Comment on above: Performed By: #### 5 7021-8 #### NEERAJ BARTON ([id number]) [facility] ([facility]) [address] [place] [address] 71354 Immature granulocytes (Bld) [#/Vol] 0.02 x10*3/uL Normal 0.00-0.50 [facility] Comment on above: Performed By: #### 5 7021-8 #### NEERAJ BARTON ([id number]) [facility] ([facility]) [address] [place] [address] 17877 Immature granulocytes/100 WBC (Bld) 0.3 % Normal 0.0-0.9 [facility] Comment on above: Result Comment: Jeannie ture Granulocyte Count (IG) includes promyelocytes, myelocytes and metamyelocytes but does not include bands. Percent differential counts (%) should be interpreted in the context of the absolute cell counts (cells/UL). Performed By: #### 5 7021-8 #### NEERAJ BARTON ([id number]) [facility] ([facility]) [address] [place] [address] 87703 Lymphocytes (Bld) [#/Vol] 2.24 x10*3/uL Normal 0.80-3.00 [facility] Comment on above: Performed By: #### 5 7021-8 #### NEERAJ BARTON ([id number]) [facility] ([facility]) [address] [place] [address] 49405 Lymphocytes/100 WBC (Bld) 34.0 % Normal 13.0-44.0 [facility] Comment on above: Performed By: #### 5 7021-8 #### NEERAJ BARTON ([id number]) [facility] ([facility]) [address] [place], [place] [address] MCH (RBC) [Entitic mass] 26.3 pg Normal 26.0-34.0 [facility] Comment on above: Performed By: #### 5 7021-8 #### NEERAJ BARTON ([id number]) [facility] ([facility]) [address] [place] [address] MCHC (RBC) [Mass/Vol] 31.0 g/dL Low 32.0-36.0 [facility] Comment on above: Performed By: #### 5 7021-8 #### NEERAJ BARTON ([id number]) [facility] ([facility]) [address] [place] [address] 06868 MCV (RBC) [Entitic vol] 85 fL Normal 80-100 [facility] Comment on above: Performed By: #### 5 7021-8 #### NEERAJ BARTON ([id number]) [facility] ([facility]) [address] [place] [address] 06189 Monocytes (Bld) [#/Vol] 0.51 x10*3/uL Normal 0.05-0.80 [facility] Comment on above: Performed By: #### 5 7021-8 #### NEERAJ BARTON ([id number]) [facility] ([facility]) [address] [place] [address] 84648 Monocytes/100 WBC (Bld) 7.8 % Normal 2.0-10.0 [facility] Comment on above: Performed By: #### 5 7021-8 #### NEERAJ BARTON ([id number]) [facility] ([facility]) [address] [place] [address] 77641 Neutrophils (Bld) [#/Vol] 3.28 x10*3/uL Normal 1.60-5.50 [facility] Comment on above: Result Comment: Perc ent differential counts (%) should be interpreted in the context of the absolute cell counts (cells/uL). Performed By: #### 5 7021-8 #### NEERAJ BARTON ([id number]) [facility] ([facility]) [address] [place] [address] 80366 Neutrophils/100 WBC (Bld) 49.8 % Normal 40.0-80.0 [facility] Comment on above: Performed By: #### 5 7021-8 #### NEERAJ BARTON ([id number]) [facility] ([facility]) [address] [place] [address] 59648 Nucleated RBC/100 WBC (Bld) [Ratio] 0.0 /100 WBCs Normal 0.0-0.0 [facility] Comment on above: Performed By: #### 5 7021-8 #### NEERAJ BARTON ([id number]) [facility] ([facility]) [address] [place] [address] 38820 Platelets (Bld) [#/Vol] 209 x10*3/uL Normal 150-450 [facility] Comment on above: Performed By: #### 5 7021-8 #### NEERAJ BARTON ([id number]) [facility] ([facility]) [address] [place] [address] RBC (Bld) [#/Vol] 5.01 x10*6/uL Normal 4.00-5.20 [facility] Comment on above: Performed By: #### 5 7021-8 #### NEERAJ BARTON ([id number]) [facility] ([facility]) [address] [place] [address] WBC (Bld) [#/Vol] 6.6 x10*3/uL Normal 4.4-11.3 [facility] Comment on above: Performed By: #### 5 7021-8 #### NEERAJ BARTON ([id number]) [facility] ([facility]) [address] [place] [address] Comprehensive metabolic 2000 panelon 01-06-2024 Albumin BCP dye [Mass/Vol] 4.3 g/dL Normal 3.4-5.0 [facility] Comment on above: Performed By: #### 2 4323-8 #### NEERAJ BARTON ([id number]) [facility] ([facility]) [address] [place] [address] ALP [Catalytic activity/Vol] 63 U/L Normal 33-136 [facility] Comment on above: Performed By: #### 2 4323-8 #### NEERAJ BARTON ([id number]) [facility] ([facility]) [address] [place] [address] ALT With P-5'-P [Catalytic activity/Vol] 18 U/L Normal 7-45 [facility] Comment on above: Result Comment: Abril ents treated with Sulfasalazine may generate falsely decreased results for ALT. Performed By: #### 2 4323-8 #### NEERAJ BARTON ([id number]) [facility] ([facility]) [address] [place] [address] 01871 Anion gap [Moles/Vol] 11 mmol/L Normal 10-20 [facility] Comment on above: Performed By: #### 2 4323-8 #### NEERAJ BARTON ([id number]) [facility] ([facility]) [address] [place] [address] 26431 AST With P-5'-P [Catalytic activity/Vol] 22 U/L Normal 9-39 [facility] Comment on above: Performed By: #### 2 4323-8 #### NEERAJ BARTON ([id number]) [facility] ([facility]) [address] [place] [address] 21672 Bilirubin [Mass/Vol] 0.5 mg/dL Normal 0.0-1.2 [facility] Comment on above: Performed By: #### 2 4323-8 #### NEERAJ BARTON ([id number]) [facility] ([facility]) [address] [place] [address] 74286 Calcium [Mass/Vol] 9.6 mg/dL Normal 8.6-10.3 [facility] Comment on above: Performed By: #### 2 4323-8 #### NEERAJ BARTON ([id number]) [facility] ([facility]) [address] [place] [address] 92267 Chloride [Moles/Vol] 102 mmol/L Normal 98-107 [facility] Comment on above: Performed By: #### 2 4323-8 #### NEERAJ BARTON ([id number]) [facility] ([facility]) [address] [place] [address] 62578 CO2 [Moles/Vol] 30 mmol/L Normal 21-32 [facility] Comment on above: Performed By: #### 2 4323-8 #### NEERAJ BARTON ([id number]) [facility] ([facility]) [address] [place] [address] 47973 Creatinine [Mass/Vol] 1.17 mg/dL High 0.50-1.05 [facility] Comment on above: Performed By: #### 2 4323-8 #### NEERAJ BARTON ([id number]) [facility] ([facility]) [address] [place] [address] 18157 Glomerular filtration rate/1.73 sq M.predicted 48 mL/min/1.73m*2 Low >60 [facility] Comment on above: Result Comment: Calc ulations of estimated GFR are performed using the 2020 CKD-EPI Study Refit equation without the race variable for the IDMS-Traceable creatinine methods. https://jasn.asnjournals.org/content/early/ASN.79622653 88 Performed By: #### 2 432-8 #### NEERAJ BARTON ([id number]) [facility] ([facility]) [address] [place] [address] 88879 Glucose [Mass/Vol] 107 mg/dL High 74-99 [facility] Comment on above: Performed By: #### 2 4322-8 #### NEERAJ BARTON ([id number]) [facility] ([facility]) [address] [place] [address] 67614 Potassium [Moles/Vol] 3.9 mmol/L Normal 3.5-5.3 [facility] Comment on above: Performed By: #### 2 4322-8 #### NEERAJ BARTON ([id number]) [facility] ([facility]) [address] [place] [address] 93554 Protein [Mass/Vol] 6.9 g/dL Normal 6.4-8.2 [facility] Comment on above: Performed By: #### 2 4323-8 #### NEERAJ BARTON ([id number]) [facility] ([facility]) [address] [place] [address] 65767 Sodium [Moles/Vol] 139 mmol/L Normal 136-145 [facility] Comment on above: Performed By: #### 2 4323-8 #### NEERAJ BARTON ([id number]) [facility] ([facility]) [address] [place] [address] Urea nitrogen [Mass/Vol] 20 mg/dL Normal - [facility] Comment on above: Performed By: #### 2 4323-8 #### NEERAJ BARTON ([id number]) [facility] ([facility]) [facility] [place] [address] Bacteria identifiedon 2023 Bacteria identified Cx Nom (U) Test: Urine culture Specimen Source: Clean Catch/Voided Specimen Type: Urine Specimen Date: 12/16/2023 161 Result Date: 12/18/2023 152 Result Status: Final result Abnormal: No Resulting Lab: [facility] [address] [place] [address] CULTURE No significant growth Normal [facility] Comment on above: Performed By: #### 6 30-4 #### TANIYA Krishna ([id number]) [facility] ([facility]) [address] [place] [address] 25([place])D3 SerPl-mCncon 2023 25-hydroxyvitamin D3 [Mass/Vol] 34.2 ng/mL Normal >=30.0 [facility] Comment on above: Order Comment: Speci men Type: BLOOD SPECIMENOrdering Facility: [facility] Address: [address] [place] [address] Result Comment: Clas sification of 25 [place] Vitamin D status: Deficiency: <= 20.0 ng/ml. Insufficiency: 21.0-29.0 ng/ml. Sufficiency: >= 30.0 ng/ml. Performed By: #### 1 989-3 ####[facility]IA [id number] [place] [address] [place] 25-hydroxyvitamin D3 [Mass/V ol]on 11-30-2023 Interpretation and review of laboratory results Normal [facility] CBC panel Auto (Bld)on 11-29 Erythrocyte distribution width (RBC) [Ratio] 13.9 % 11.5 - 15.0 % [facility] Hematocrit (Bld) [Volume fraction] 42.6 % 36.0 - 46.0 % [facility] Hemoglobin (Bld) [Mass/Vol] 13.5 g/dL 11.5 - 15.5 g/dL [facility] Interpretation and review of laboratory results Normal [facility] MCH (RBC) [Entitic mass] 26.7 pg 26.0 - 34.0 pg [facility] MCHC (RBC) [Mass/Vol] 31.7 g/dL 30.5 - 36.0 g/dL [facility] MCV (RBC) [Entitic vol] 84.4 fL 80.0 - 100.0 fL [facility] Platelet mean volume (Bld) [Entitic vol] 12.0 fL 9.0 - 12.7 fL [facility] Platelets (Bld) [#/Vol] 212 10*3/uL [facility] RBC (Bld) [#/Vol] 5.05 10*6/uL 3.90 - 5.2 0 m/uL [facility] WBC (Bld) [#/Vol] 7.39 10*3/uL [facility] Erythrocyte distribution width (RBC) [Ratio] 13.9 % Normal 11.5-15.0 [facility] Comment on above: Order Comment: Avelina bedolla Type: BLOOD SPECIMEN Ordering Facility: [facility] Address: [address] [place] [address] Performed By: #### 5 8410-2 #### [facility] CLIA [id number] [address] STATES OF [facility] Hematocrit (Bld) [Volume fraction] 42.6 % Normal 36.0-46.0 [facility] Comment on above: Order Comment: Speci men Type: BLOOD SPECIMEN Ordering Facility: [facility] Address: [address] [place] [address] Performed By: #### 5 8410-2 #### [facility] CLIA [id number] [address] [place] [address] [place] Hemoglobin (Bld) [Mass/Vol] 13.5 g/dL Normal 11.5-15.5 [facility] Comment on above: Order Comment: Speci men Type: BLOOD SPECIMEN Ordering Facility: [facility] Address: [address] [place] [address] Performed By: #### 5 8410-2 #### [facility] CLIA [id number] [address] [place] [address] [facility] MCH (RBC) [Entitic mass] 26.7 pg Normal 26.0-34.0 [facility] Comment on above: Order Comment: Speci men Type: BLOOD SPECIMEN Ordering Facility: [facility] Address: [address] [place] [address] Performed By: #### 5 8410-2 #### [facility] CLIA [id number] [address] [place] [id number] [facility] MCHC (RBC) [Mass/Vol] 31.7 g/dL Normal 30.5-36.0 [facility] Comment on above: Order Comment: Speci men Type: BLOOD SPECIMEN Ordering Facility: [facility] Address: [address] [place] [address] Performed By: #### 5 8410-2 #### [facility] CLIA [id number] [address] [place], [place] [address] [place] [address] [place] [facility] MCV (RBC) [Entitic vol] 84.4 fL Normal 80.0-100.0 [facility] Comment on above: Order Comment: Speci men Type: BLOOD SPECIMEN Ordering Facility: [facility] Address: [address] [place] [address] Performed By: #### 5 8410-2 #### [facility] CLIA [id number] [address] [place] [address] [place] [facility] Platelet mean volume (Bld) [Entitic vol] 12.0 fL Normal 9.0-12.7 [facility] Comment on above: Order Comment: Speci men Type: BLOOD SPECIMEN Ordering Facility: [facility] Address: [address] [place] [address] Performed By: #### 5 8410-2 #### [facility] CLIA [id number] [address] [place] [address] [facility] Platelets (Bld) [#/Vol] 212 10*3/uL Normal 150-400 [facility] Comment on above: Order Comment: Avelina bedolla Type: BLOOD SPECIMEN Ordering Facility: [facility] Address: [address] [place] [address] Performed By: #### 5 8410-2 #### [facility] CLIA [id number] [address] [place], [place] [id number] [place] [address] [place] RBC (Bld) [#/Vol] 5.05 10*6/uL Normal 3.90-5.20 [facility] Comment on above: Order Comment: Avelina bedolla Type: BLOOD SPECIMEN Ordering Facility: [facility] Address: [address] [place] [address] Performed By: #### 5 8410-2 #### [facility] CLIA [id number] [address] WBC (Bld) [#/Vol] 7.39 10*3/uL Normal 3.70-11.00 [facility] Comment on above: Order Comment: Avelina bedolla Type: BLOOD SPECIMEN Ordering Facility: [facility] Address: [address] [place] [address] Performed By: #### 5 8410-2 #### [facility] CLIA [id number] [address] [place] [address] [facility] CNOVon 11-30-2023 CNOV Office Visit (AGINTM LW) -- BRANDON MURO ([id number]) 1945 F Date Time Provider Department 11/30/23 10:00 AM PILAR FERRERMLW During your visit today, we recorded the following information about you: Temperature Pulse Respiration Blood pressure 98.2 degrees 82/minute 18/minute 128/76 Weight Height 96.2 kg 1.562 m Pilar Ferrer, JULIO.PROGRAM ADMINISTRATOR 11/30/2023 1:24 PM Signed Brandon Muor is a 78 year old female here for a Medicare wellness visit. PMH HTN, lupus, allergies, anxiety, depression, aortic stenosis. Patient denies changes in health since last office visit. Reports feeling well. Denies concerns or complaints today. I reviewed patients past medical, surgical, social, and family histories today and updated chart. Allergies, chronic medications, and supplements were also reviewed and list is now up to date. HTN: Ms. Muro indicates that she is feeling well and denies any symptoms referable to elevated blood pressure. Specifically denies headache, chest pain, palpitations, dyspnea, peripheral edema, claudication symptoms, orthopnea, fatigue, and PND. Patient denies any side effects of her medication(s) and is compliant with their regimen. She does not check BP's generally. Brandon works out regularly 2-3 times per week with walking and pool work out. She watches her diet for sodium, low fat and low cholesterol some of the time. She is taking norvasc 5 mg, losartan 100 mg daily, HCTZ 12.5 mg daily. Lupus: She is seeing Dr Rios for management. At last office visit on 01/30/20 her Plaquen[address] Rios also had pt decrease HCTZ due to increase in creatinine. Depression and anxiety: she is taking Effexor daily for management. She reports her symptoms have been well managed with Effexor. She was started on Effexor after her in 2017. States anxiety has been controlled with effexor. 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 She reports she really enjoys going and keeps her mind off things.Denies feeling depressed or thoughts of suicide. reports if she misses doses she can tell and feels anxious. Reports she met a real nice man and states she hands out with him a lot. States this has helped her depression. He has a 50 yo disabled child that he cares for. She feels they have been a blessing to her. Aortic stenosis: reports having murmur for years. Last echo 2015. Denies symptoms. She is seeing DR Steinberg cardiology [facility]. She was last seen 08/25/23. She has follow up in December. Last echo 06/19 per patient Allergies: environmental, chronic. She is using flonase and allergy medication daily. Reports when her allergies are really bad she will use her albuterol inhaler due to feeling SOB which helps with her symptoms. She is former smoker as well. CKD: She has history renal insuffiency and was seeing Dr Tyson in [place]. States she was taking medication for arthritis and once she went off it her kidneys improved. Preventative: she had colonoscopy with Dr Quinones in August 2022. Reports small hemorrhoids. Reports she was told she does not need another one. She never received her COVID vaccines and is not interested in this. Some elements of above documentation were copied from my progress note of 09/30/22 and have been reexamined and updated where appropriate. All elements reflect the current assessment and medical decision making today . Medicare Health Risk Assessment General Health Good Exercise: Minutes/Day 0 min Exercise: Days/Week 0 days Alcohol: Daily Use Never Alcohol: Drinks/Day Patient does not drink Alcohol: 6 or more drinks Never Feel off balance Denies, Concerns: Teeth/Dentures Partial no problems Concerns: Sexual function Denies Troubled by feelings Rarely occurs. Treated with medication Frequency: Eating healthy diet daily ADLs requiring help none Safety precautions in home/vehicle Always Smoke, vape, chews tobacco Denies Difficulty hearing Yes wears hearing aides Difficulty seeing Yes, wears glasses Current Providers Specialists: I have reviewed specialist-related care of the patient in the medical record. Current care team: Patient Care Team: Pilar Ferrer APRN.PROGRAM ADMINISTRATOR as PCP - General (Internal Medicine) Jenise Rios (Rheumatology) Taniya Tyson I, DO (Nephrology) Houston Gonzalez Sr. (Ent - Otolaryngology) Medical/Family history review Reviewed and updated problem list, medical/surgical/family/so cial history, medications, and allergies. Opioid use review Opioid Medications (last 90 days) No data to display Anxiety/Depression screening PHQ-9 Score: 5 (Mild Depression) GARRY-7 Score: 7 (Mild Anxiety) Recommendation: no further intervention at this time Cognitive screening Mini Cog Score: 5 Cognitive screening re (more content not included)... Normal [facility] CNPNon 11-30-2023 MARY LOUN Telephone (AGINTMLW) -- BRANDON MURO ([id number]) 1945 F Date Time Provider Department 11/30/23 PILAR FERRER AGMARCELINO During your visit today, we recorded the following information about you: Danielito Montenegro MA 11/30/2023 4:08 PM Signed ----- Message from Pilar Ferrer APRN.PROGRAM ADMINISTRATOR sent at 11/30/2023 12:31 PM EDT ----- Lipids TC and LDL mildly elevated. Decrease fat, increase exercise CMP sugar increased from last year. Decrease sugar, carbs and daily exercise to help slow progression to diabetes , creatinine is elevated. Indicator of kidney fxn. We need to recheck this. I know she is to have labs with Melanie later this month. Please have her send me results CBC and tsh wnl Danielito Montenegro MA 11/30/2023 4:21 PM Signed Called pt left for her to call the office back for results JUVENCIO Noriega Donna, [place] 12/01/2023 4:22 PM Signed ----- Message from Pilar Ferrer APRN.PROGRAM ADMINISTRATOR sent at 12/01/2023 6:53 AM EDT ----- Vit D wnl Danielito Montenegro MA 12/01/2023 4:23 PM Signed Called pt left for her to call the office back for results JUVENCIO Noriega Donna, [place] 12/08/2023 4:33 PM Signed ----- Message from Pilar Ferrer APRN.PROGRAM ADMINISTRATOR sent at 12/05/2023 6:14 PM EDT ----- Xray of clavicle unremarkable. No concerning findings. IMPRESSION IMPRESSION: No acute radiographic abnormality. The sternoclavicular joints are difficult to assess because of overlapping bony structures. If there is concern for abnormality in this location, CT is suggested. Danielito Montenegro MA 12/08/2023 4:34 PM Signed Called pt left VM for her to call the office back regarding results JUVENCIO Noriega Donna, [place] 12/16/2023 3:23 PM Signed Called pt let her know the results and instructed to have Dr. Patrick to send us the results of her lab work Danielito Montenegro MA Allergies As of Date: 11/30/2023 Noted Allergy Reaction CELECOXIB 12/16/2016 14 - Other: See Comments MOLD 03/03/2012 16 - Unknown PITAVASTATIN 11/13/2012 14 - Other: See Comments Comments: Drug induced lupus. SULFA (SULFONAMIDE ANTIBIOTICS) 03/03/2012 16 - Unknown Comments: Took for bladder infection and infection became worse. TAPE (ADHESIVE TAPE (ROSINS)) 08/20/2014 2 - Rash VICODIN (HYDROCODONE-ACETAMINOPHE* 08/20/2014 8 - GI Upset Date Reviewed: 11/30/2023 Reviewed by: Pliar Ferrer APRN.PROGRAM ADMINISTRATOR - Fully Assessed Reason for Visit: Results [95] Prescriptions as of 12/16/2023 - omeprazole (PRILOSEC) 40 mg capsule Take 1 capsule by mouth once daily. - venlafaxine (EFFEXOR) 75 mg tablet Take 1 tablet by mouth once daily. - benzonatate (TESSALON PERLES) 100 mg capsule Take 1 capsule by mouth three times a day as needed for cough. - albuterol HFA (PROVENTIL HFA, VENTOLIN HFA) 90 mcg/actuation inhaler Inhale 2 Puffs as instructed every 4 hours as needed for wheezing/shortness of breath. - amLODIPine (NORVASC) 5 mg tablet Take 1 tablet by mouth once daily - losartan (COZAAR) 100 mg tablet Take 1 tablet by mouth once daily - hydroCHLOROthiazide 12.5 mg tablet Take 1 tablet by mouth once daily - ALLERGY RELIEF, CETIRIZINE, 10 mg tablet Take 1 tablet by mouth once daily - hydrOXYchloroQUINE (PLAQUENIL) 200 mg tablet TAKE 1 AND 1 2 (ONE AND ONE HALF) TABLETS BY MOUTH ONCE DAILY Facility-Administered Medications as of 12/16/2023 - sodium chloride 0.9 % (flush) 10 mL (BD POSIFLUSH) - perflutren lipid microspheres 1.3 mL in NaCl (PF) 0.9% 10 mL injection (DEFINITY) Problem List As Of Date 11/30/2023 Noted Resolved Chronic cough [R05.3] 03/03/2012 Allergic rhinitis [J30.9] 03/03/2012 Hyperlipidemia [E78.5] 08/20/2014 Hypertension [I10] 08/20/2014 Abnormal ECG [R94.31] 11/15/2014 Mild aortic stenosis [I35.0] 11/12/2015 Obesity (BMI 35.0-39.9 without comorbidity) [E6*11/12/2015 Anxiety and depression [F41.9, F32.A] 08/11/2017 Stage 3 chronic kidney disease (HCC) [N18.30] 09/30/2022 Encounter Status:Closed by DANIELITO MONTENEGRO on 12/16/23 Normal [facility] Comprehensive metabolic 2000 panelon 11-30-2023 Albumin [Mass/Vol] 4.5 g/dL 3.9 - 4.9 g/dL [facility] ALP [Catalytic activity/Vol] 80 U/L 34 - 123 U/L [facility] ALT With P-5'-P [Catalytic activity/Vol] 16 U/L 7 - 38 U/L [facility] Anion gap [Moles/Vol] 12 mmol/L 8 - 15 mmol/L [facility] AST With P-5'-P [Catalytic activity/Vol] 21 U/L 13 - 35 U/L [facility] Bilirubin [Mass/Vol] 0.3 mg/dL 0.2 - 1.3 mg/dL [facility] Calcium [Mass/Vol] 9.9 mg/dL 8.5 - 10. 2 mg/dL [facility] Chloride [Moles/Vol] 102 mmol/L 98 - 107 mmol/L [facility] CO2 [Moles/Vol] 26 mmol/L 22 - 30 mmol/L [facility] Creatinine [Mass/Vol] 1.29 mg/dL High 0.58 - 0.96 mg/dL [facility] GFR/1.73 sq M.predicted among non-blacks MDRD (S/P/Bld) [Vol rate/Area] 43 mL/min/{1.73_m2} Low - PINF [facility] Comment on above: Estimated Glomerular Filtration Rate (eGFR) is calculated using the 2020 CKD-EPI creatinine equation. This equation utilizes serum creatinine, sex, and age as parameters. The creatinine assay has traceable calibration to isotope dilution-mass spectrometry. Refer to KDIGO guidelines for clinical interpretation. In patients with unstable renal function, e.g. those with acute kidney injury, the eGFR may not accurately reflect actual GFR. Glucose [Mass/Vol] 116 mg/dL High 74 - 99 mg/dL [facility] Comment on above: The [place] Diab[employer] s Association (ADA) provides guidance for cutoff values for fasting glucose and random glucose. The ADA defines fasting as no caloric intake for at least 8 hours. Fasting plasma glucose results between 100 to 125 mg/dL indicate increased risk for diabetes (prediabetes). Fasting plasma glucose results greater than or equal to 126 mg/dL meet the criteria for diagnosis of diabetes. In the absence of unequivocal hyperglycemia, results should be confirmed by repeat testing. In a patient with classic symptoms of hyperglycemia or hyperglycemic crisis, random plasma glucose results greater than or equal to 200 mg/dL meet the criteria for diagnosis of diabetes. Reference: Standards of Medical Care in Diabetes 2016, [place] [employer] Association. Diabetes Care. 2016.39(Suppl 1). Potassium [Moles/Vol] 4.1 mmol/L 3.7 - 5.1 mmol/L [facility] Protein [Mass/Vol] 7.8 g/dL 6.3 - 8.0 g/dL [facility] Sodium [Moles/Vol] 140 mmol/L 136 - 144 mmol/L [facility] Urea nitrogen [Mass/Vol] 20 mg/dL 7 - 21 mg/dL [facility] Albumin [Mass/Vol] 4.5 g/dL Normal 3.9-4.9 [facility] Comment on above: Order Comment: Avelina bedolla Type: BLOOD SPECIMEN Ordering Facility: [facility] Address: [address] [place] [address] Performed By: #### 2 4331-1, 3016-3, 43235-4 #### [facility] CLIA [id number] [address] [place] [address] [place] ALP [Catalytic activity/Vol] 80 U/L Normal 34-123 [facility] Comment on above: Order Comment: Speci men Type: BLOOD SPECIMEN Ordering Facility: [facility] Address: [address] [place] [address] Performed By: #### 2 4331-1, 3015-3, 60745-2 #### [facility] CLIA [id number] [address] [place] [address] [place] ALT With P-5'-P [Catalytic activity/Vol] 16 U/L Normal 7-38 [facility] Comment on above: Order Comment: Speci men Type: BLOOD SPECIMEN Ordering Facility: [facility] Address: [address] [place] [address] Performed By: #### 2 4331-1, 3015-3, 83971-2 #### [facility] CLIA [id number] [address] [place] [address] [place] Anion gap [Moles/Vol] 12 mmol/L Normal 8-15 [facility] Comment on above: Order Comment: Speci men Type: BLOOD SPECIMEN Ordering Facility: [facility] Address: [address] [place], [place] [address] Performed By: #### 2 4331-1, 3, 49401-8 #### [facility] CLIA [id number] [address] [place] [address] [place] AST With P-5'-P [Catalytic activity/Vol] 21 U/L Normal 13-35 [facility] Comment on above: Order Comment: Speci men Type: BLOOD SPECIMEN Ordering Facility: [facility] Address: [address] [place], [place] [address] Performed By: #### 2 4331-1, 3015-3, 01301-8 #### [facility] CLIA [id number] [address] [place] [address] [place] Bilirubin [Mass/Vol] 0.3 mg/dL Normal 0.2-1.3 [facility] Comment on above: Order Comment: Speci men Type: BLOOD SPECIMEN Ordering Facility: [facility] Address: [address] [place], [place] [address] Performed By: #### 2 4331-1, 3015-3, #### [facility] CLIA [id number] [address] [place] [address] [place] Calcium [Mass/Vol] 9.9 mg/dL Normal 8.5-10.2 [facility] Comment on above: Order Comment: Speci men Type: BLOOD SPECIMEN Ordering Facility: [facility] Address: [address] [place] [address] Performed By: #### 2 4331-1, 3015-3, #### [facility] CLIA [id number] [address] [place] [address] [place] Chloride [Moles/Vol] 102 mmol/L Normal 98-107 [facility] Comment on above: Order Comment: Speci men Type: BLOOD SPECIMEN Ordering Facility: [facility] Address: [address] [place] [address] Performed By: #### 2 4331-1, 3, #### [facility] CLIA [id number] [address] [place] [address] [place] CO2 [Moles/Vol] 26 mmol/L Normal 22-30 [facility] Comment on above: Order Comment: Speci men Type: BLOOD SPECIMEN Ordering Facility: [facility] Address: [address] [place] [address] Performed By: #### 2 4331-1, 3, #### [facility] CLIA [id number] [address] [place] [address] [place] Creatinine [Mass/Vol] 1.29 mg/dL High 0.58-0.96 [facility] Comment on above: Order Comment: Speci men Type: BLOOD SPECIMEN Ordering Facility: [facility] Address: [address] [place], [place] [address] Performed By: #### 2 4331-1, 3015-3, 79329-4 #### [facility] CLIA [id number] [address] [place] [address] [place] Creatinine and Glomerular filtration rate.predicted panel (S/P/Bld) 43 mL/min/1.73m??? Low >=60 [facility] Comment on above: Order Comment: Avelina bedolla Type: BLOOD SPECIMEN Ordering Facility: [facility] Address: [address] [place] [address] Result Comment: Meagan mated Glomerular Filtration Rate (eGFR) is calculated using the 2020 CKD-EPI creatinine equation. This equation utilizes serum creatinine, sex, and age as parameters. The creatinine assay has traceable calibration to isotope dilution-mass spectrometry. Refer to KDIGO guidelines for clinical interpretation. In patients with unstable renal function, e.g. those with acute kidney injury, the eGFR may not accurately reflect actual GFR. Performed By: #### 2 4331-1, 3016-3, 44655-2 #### [facility] CLIA [id number] [address] [place] [address] [place] Glucose [Mass/Vol] 116 mg/dL High 74-99 [facility] Comment on above: Order Comment: Avelina bedolla Type: BLOOD SPECIMEN Ordering Facility: [facility] Address: [address] [place] [address] Result Comment: The [place] Diabetes Association (ADA) provides guidance for cutoff values for fasting glucose and random glucose. The ADA defines fasting as no caloric intake for at least 8 hours. Fasting plasma glucose results between 100 to 125 mg/dL indicate increased risk for diabetes (prediabetes). Fasting plasma glucose results greater than or equal to 126 mg/dL meet the criteria for diagnosis of diabetes. In the absence of unequivocal hyperglycemia, results should be confirmed by repeat testing. In a patient with classic symptoms of hyperglycemia or hyperglycemic crisis, random plasma glucose results greater than or equal to 200 mg/dL meet the criteria for diagnosis of diabetes. Reference: Standards of Medical Care in Diabetes 2016, [place] [employer]. Diabetes Care. 2016.39(Suppl 1). Performed By: #### 2 4331-1, 3016-3, 29277-1 #### [facility] CLIA [id number] [address] [place] [address] [place] Potassium [Moles/Vol] 4.1 mmol/L Normal 3.7-5.1 [facility] Comment on above: Order Comment: Speci men Type: BLOOD SPECIMEN Ordering Facility: [facility] Address: [address] [place] [address] Performed By: #### 2 4331-1, 3015-3, #### [facility] CLIA [id number] [address] [place] [address] [place] Protein [Mass/Vol] 7.8 g/dL Normal 6.3-8.0 [facility] Comment on above: Order Comment: Speci men Type: BLOOD SPECIMEN Ordering Facility: [facility] Address: [address] [place] [address] Performed By: #### 2 4331-1, 3, #### [facility] CLIA [id number] [address] [place] [address] [place] Sodium [Moles/Vol] 140 mmol/L Normal 136-144 [facility] Comment on above: Order Comment: Speci men Type: BLOOD SPECIMEN Ordering Facility: [facility] Address: [address] [place] [address] Performed By: #### 2 4331-1, 3, #### [facility] CLIA [id number] [address] [place] [address] [place] Urea nitrogen [Mass/Vol] 20 mg/dL Normal 7-21 [facility] Comment on above: Order Comment: Speci men Type: BLOOD SPECIMEN Ordering Facility: [facility] Address: [address] [place] [address] Performed By: #### 2 4331-1, 3, #### [facility] CLIA [id number] [address] [place] [address] [place] Lipid 1996 panelon 4 Cholesterol [Mass/Vol] 211 mg/dL High NINF - 200 mg/dL [facility] Comment on above: <200 mg/dL, Desirabl e 200-239 mg/dL, Borderline high >239 mg/dL, High Cholesterol in HDL [Mass/Vol] 75 mg/dL 39 - PINF mg/dL [facility] Comment on above: 40-59 mg/dL, Accepta ble >59 mg/dL, High: Negative risk factor for coronary heart disease <40 mg/dL, Low: Positive risk factor for coronary heart disease Cholesterol in LDL [Mass/Vol] 121 mg/dL High NINF - 100 mg/dL [facility] Comment on above: <100 mg/dL, Optimal 100-129 mg/dL, Near optimal/above optimal 130-159 mg/dL, Borderline high 160-189 mg/dL, High >189 mg/dL, Very high Secondary prevention optimal LDL Cholesterol levels are recommended to be < 70 mg/dL Cholesterol in LDL/Cholesterol in HDL [Mass ratio] 1.61 {ratio} NINF - 2.54 [facility] Comment on above: Reference: 1. National Cholesterol Education Program ATP III Guideline At-A-Glance Quick Desk Reference: National Heart, Lung, and Blood [address]. National Institutes of Health. 2001: NIH Publication No. 01-3305. 2. An International Atherosclerosis Society position paper: global recommendations for the management of dyslipidemia: executive summary, Atherosclerosis. 2014: 232(2):410-413. Cholesterol in VLDL [Mass/Vol] 15 mg/dL NINF - 30 mg/dL [facility] Cholesterol non HDL [Mass/Vol] 136 mg/dL High NINF - 130 mg/dL [facility] Comment on above: <130 mg/dL, Optimal 130-159 mg/dL, Near optimal/above optimal 160-189 mg/dL, Borderline high 190-219 mg/dL, High >219 mg/dL, Very high Secondary prevention optimal non HDL Cholesterol levels are recommended to be <100 mg/dL Cholesterol.total/C holesterol in HDL [Mass ratio] 2.81 {ratio} NINF - 5.10 [facility] Fasting Time 12 hrs [facility] Triglyceride [Mass/Vol] 77 mg/dL NINF - 150 mg/dL [facility] Comment on above: <150 mg/dL, Normal 150-199 mg/dL, Borderline high 200-499 mg/dL, High >499 mg/dL, Very high Cholesterol [Mass/Vol] 211 mg/dL High <200 [facility] Comment on above: Order Comment: Speci men Type: BLOOD SPECIMEN Ordering Facility: [facility] Address: [address] [place] [address] Result Comment: <200 mg/dL, Desirable 200-239 mg/dL, Borderline high >239 mg/dL, High Performed By: #### 2 4331-1, 3016-3, 75374-1 #### [facility] CLIA [id number] [address] [place] [address] [facility] Cholesterol in HDL [Mass/Vol] 75 mg/dL Normal >39 [facility] Comment on above: Order Comment: Chrisi men Type: BLOOD SPECIMEN Ordering Facility: [facility] Address: [address] [place] [address] Result Comment: 40-5 9 mg/dL, Acceptable >59 mg/dL, High: Negative risk factor for coronary heart disease <40 mg/dL, Low: Positive risk factor for coronary heart disease Performed By: #### 2 4331-1, 6-3, 56069-2 #### [facility] CLIA [id number] [address] [place] [address] [facility] Cholesterol in LDL [Mass/Vol] 121 mg/dL High <100 [facility] Comment on above: Order Comment: Chrisi men Type: BLOOD SPECIMEN Ordering Facility: [facility] Address: [address] [place] [address] Result Comment: <100 mg/dL, Optimal 100-129 mg/dL, Near optimal/above optimal 130-159 mg/dL, Borderline high 160-189 mg/dL, High >189 mg/dL, Very high Secondary prevention optimal LDL Cholesterol levels are recommended to be < 70 mg/dL Performed By: #### 2 4331-1, 3016-3, 11827-9 #### [facility] CLIA [id number] [address] [place] [address] [facility] [place] Cholesterol in LDL/Cholesterol in HDL [Mass ratio] 1.61 {ratio} Normal <2.54 [facility] Comment on above: Order Comment: Chrisi men Type: BLOOD SPECIMEN Ordering Facility: [facility] Address: [address] [place] [address] Result Comment: Refe rence: 1. National Cholesterol Education Program ATP III Guideline At-A-Glance Quick Desk Reference: National Heart, Lung, and Blood [address]. National Institutes of Health. 2001: NIH Publication No. 01-3305. 2. An International Atherosclerosis Society position paper: global recommendations for the management of dyslipidemia: executive summary, Atherosclerosis. 2014: 232(2):410-413. Performed By: #### 2 4331-1, 6-3, 93590-7 #### [facility] CLIA [id number] [address] [place] [address] [place] Cholesterol in VLDL [Mass/Vol] 15 mg/dL Normal <30 [facility] Comment on above: Order Comment: Avelina bedolla Type: BLOOD SPECIMEN Ordering Facility: [facility] Address: [address] [place] [address] Performed By: #### 2 4331-1, 3015-3, 75699-3 #### [facility] CLIA [id number] [address] [place] [address] [place] Cholesterol non HDL [Mass/Vol] 136 mg/dL High <130 [facility] Comment on above: Order Comment: Avelina bedolla Type: BLOOD SPECIMEN Ordering Facility: [facility] Address: [address] [place] [address] Result Comment: <130 mg/dL, Optimal 130-159 mg/dL, Near optimal/above optimal 160-189 mg/dL, Borderline high 190-219 mg/dL, High >219 mg/dL, Very high Secondary prevention optimal non HDL Cholesterol levels are recommended to be <100 mg/dL Performed By: #### 2 4331-1, 6-3, 15406-5 #### [facility] CLIA [id number] [address] [place] [address] [facility] [place] Cholesterol.total/C holesterol in HDL [Mass ratio] 2.81 {ratio} Normal <5.10 [facility] Comment on above: Order Comment: Avelina bedolla Type: BLOOD SPECIMEN Ordering Facility: [facility] Address: [address] [place] [address] Performed By: #### 2 4331-1, 3016-3, 39945-4 #### [facility] CLIA [id number] [address] [place] [address] [place] FASTING TIME 12 hrs Normal [facility] Comment on above: Order Comment: Speci men Type: BLOOD SPECIMEN Ordering Facility: [facility] Address: [address] [place], [place] [address] Performed By: #### 2 4331-1, 3015-3, 11747-0 #### [facility] CLIA [id number] [address] [place] [address] [place] Triglyceride [Mass/Vol] 77 mg/dL Normal <150 [facility] Comment on above: Order Comment: Speci men Type: BLOOD SPECIMEN Ordering Facility: [facility] Address: [address] [place], [place] [address] Result Comment: <150 mg/dL, Normal 150-199 mg/dL, Borderline high 200-499 mg/dL, High >499 mg/dL, Very high Performed By: #### 2 4331-1, 3015-3, #### [facility] CLIA [id number] [address] [place] [address] [place] No Panel Informationon 11-29 Interpretation and review of laboratory results Abnormal [facility] THYROID STIMULATING HORMONEo n 11-30-2023 TSH Qn 3.830 m[IU]/L [facility] TSH Qnon 11-30-2023 Interpretation and review of laboratory results Normal [facility] TSH SerPl-aCncon 11-30-2023 TSH Qn 3.830 m[IU]/L Normal 0.270-4.200 [facility] Comment on above: Order Comment: Speci men Type: BLOOD SPECIMENOrdering Facility: [facility] Address: [address] [place], [place] [address] Performed By: #### 2 4331-1, 6-3, 34732-4 ####[facility] [id number] [place] [address] [place] VITAMIN D 25 HYDROXYon 06-04 -2024 25-hydroxyvitamin D3 [Mass/Vol] 34.2 ng/mL 30.0 - PINF ng/mL [facility] Comment on above: Classification of 25 [place] Vitamin D status: Deficiency: <= 20.0 ng/ml. Insufficiency: 21.0-29.0 ng/ml. Sufficiency: >= 30.0 ng/ml. XR CLAVICLE 2V LTon 11-30-19 24 XR CLAVICLE 2V LT * * *Final Report* * * DATE OF EXAM: Nov 30 2023 11:14AM LDX 5316 - XR CLAVICLE 2V LT / PROCEDURE REASON: Acquired clavicle deformity * * * * Physician Interpretation * * * * EXAM TITLE: XR CLAVICLE 2V LT, XR CLAVICLE 2V RT DATE: 12/03/2023 11:29 AM INDICATION: Acquired clavicular deformity COMPARISON: None. FINDINGS: No fracture or dislocation. Mild degenerative changes of the acromioclavicular joints. Soft tissues are unremarkable. IMPRESSION: No acute radiographic abnormality. The sternoclavicular joints are difficult to assess because of overlapping bony structures. If there is concern for abnormality in this location, CT is suggested. Music Promoter: [facility] Transcribe Date/Time: Dec 03 2023 11:29A Dictated by : ADI COCHRAN MD This examination was interpreted and the report reviewed and electronically signed by: ADI COCHRAN MD on Dec 03 2023 11:30AM EST [id number] Normal [facility] XR CLAVICLE 2V RTon 11-30-19 24 XR CLAVICLE 2V RT * * *Final Report* * * DATE OF EXAM: Nov 30 2023 11:14AM LDX 5317 - XR CLAVICLE 2V RT / PROCEDURE REASON: Acquired clavicle deformity * * * * Physician Interpretation * * * * EXAM TITLE: XR CLAVICLE 2V LT, XR CLAVICLE 2V RT DATE: 12/03/2023 11:29 AM INDICATION: Acquired clavicular deformity COMPARISON: None. FINDINGS: No fracture or dislocation. Mild degenerative changes of the acromioclavicular joints. Soft tissues are unremarkable. IMPRESSION: No acute radiographic abnormality. The sternoclavicular joints are difficult to assess because of overlapping bony structures. If there is concern for abnormality in this location, CT is suggested. Music Promoter: [facility] Transcribe Date/Time: Dec 03 2023 11:29A Dictated by : ADI COCHRAN MD This examination was interpreted and the report reviewed and electronically signed by: ADI COCHRAN MD on Dec 03 2023 11:30AM EST [id number] Normal [facility] Hepatic function 2000 panelo n 08-26-2023 Albumin BCP dye [Mass/Vol] 4.0 g/dL Normal 3.4-5.0 [facility] Comment on above: Performed By: #### 2 4325-3 #### NEERAJ BARTON ([id number]) [facility] [address] [place] [address] ALP [Catalytic activity/Vol] 67 U/L Normal 33-136 [facility] Comment on above: Performed By: #### 2 5-3 #### NEERAJ BARTON ([id number]) [facility]) [address] [place] [address] ALT With P-5'-P [Catalytic activity/Vol] 18 U/L Normal 7-45 [facility] Comment on above: Result Comment: Abril ents treated with Sulfasalazine may generate falsely decreased results for ALT. Performed By: #### 2 4325-3 #### NEERAJ BARTON ([id number]) [facility]) [address] [place] [address] AST With P-5'-P [Catalytic activity/Vol] 18 U/L Normal 9-39 [facility] Comment on above: Performed By: #### 2 4325-3 #### NEERAJ BARTON ([id number]) [facility]) [address] [place] [address] Bilirubin [Mass/Vol] 0.4 mg/dL Normal 0.0-1.2 [facility] Comment on above: Performed By: #### 2 4325-3 #### NEERAJ BARTON ([id number]) [facility]) [address] [place] [address] Bilirubin.direct [Mass/Vol] 0.1 mg/dL Normal 0.0-0.3 [facility] Comment on above: Performed By: #### 2 4325-3 #### NEERAJ BARTON ([id number]) [facility]) [facility] [place] [address] Protein [Mass/Vol] 6.8 g/dL Normal 6.4-8.2 [facility] Comment on above: Performed By: #### 2 4325-3 #### NEERAJ BARTON ([id number]) [facility]) [address] [place] [address] Lipid 1996 panelon 4 Cholesterol [Mass/Vol] 201 mg/dL High 0-199 [facility] Comment on above: Result Comment: Age Desirable Borderline High High 0-19 Y 0 - 169 170 - 199 >/= 200 20-24 Y 0 - 189 190 - 224 >/= 225 >24 Y 0 - 199 200 - 239 >/= 240 All ranges are based on fasting samples. Specific therapeutic targets will vary based on patient-specific cardiac risk. Pediatric guidelines reference:Pediatrics 2011, 128(S5).Adult guidelines reference: NCEP ATPIII Guidelines,CRISTOBAL 2001, 258:2486-97 Venipuncture immediately after or during the administration of Metamizole may lead to falsely low results. Testing should be performed immediately prior to Metamizole dosing. Performed By: #### 2 4331-1 #### NEERAJ BARTON ([id number]) [facility]) [address] [place] [address] Cholesterol in HDL [Mass/Vol] 65.0 mg/dL Normal [facility] Comment on above: Result Comment: Age Very Low Low Normal High 0-19 Y < 35 < 40 40-45 ---- 20-24 Y ---- < 40 >45 ---- >24 Y ---- < 40 40-60 >60 Performed By: #### 2 4331-1 #### NEERAJ BARTON ([id number]) [facility]) [address] [place] [address] Cholesterol in LDL [Mass/Vol] 118 mg/dL High <=99 [facility] Comment on above: Result Comment: Near Borderline AGE Desirable Optimal High High Very High 0-19 Y 0 - 109 --- 110-129 >/= 130 ---- 20-24 Y 0 - 119 --- 120-159 >/= 160 ---- >24 Y 0 - 99 100-129 130-159 160-189 >/=190 Performed By: #### 2 4331-1 #### NEERAJ BARTON ([id number]) [facility]) [address] [place] [address] Cholesterol in VLDL [Mass/Vol] 18 mg/dL Normal 0-40 [facility] Comment on above: Performed By: #### 2 4331-1 #### NEERAJ BARTON ([id number]) [facility]) [facility] [place] [address] CHOLESTEROL/HDL RATIO 3.1 Normal [facility] Comment on above: Result Comment: Ref Values Desirable < 3.4 High Risk > 5.0 Performed By: #### 2 4331-1 #### NEERAJ BARTON ([id number]) [facility]) [facility] [place] [address] NON HDL CHOLESTEROL 136 mg/dL Normal 0-149 [facility] Comment on above: Result Comment: Age Desirable Borderline High High Very High 0-19 Y 0 - 119 120 - 144 >/= 145 >/= 160 20-24 Y 0 - 149 150 - 189 >/= 190 ---- >24 Y 30 mg/dL above LDL Cholesterol goal Performed By: #### 2 4331-1 #### NEERAJ BARTON ([id number]) [facility]) [facility] [place] [address] Triglyceride [Mass/Vol] 90 mg/dL Normal 0-149 [facility] Comment on above: Result Comment: Age Desirable Borderline High High Very High 0 D-90 D 19 - 174 ---- ---- ---- 91 D- 9 Y 0 - 74 75 - 99 >/= 100 ---- 10-19 Y 0 - 89 90 - 129 >/= 130 ---- 20-24 Y 0 - 114 115 - 149 >/= 150 ---- >24 Y 0 - 149 150 - 199 200- 499 >/= 500 Venipuncture immediately after or during the administration of Metamizole may lead to falsely low results. Testing should be performed immediately prior to Metamizole dosing. Performed By: #### 2 4331-1 #### PICKARD MICK ([id number]) [facility]) [address] [place] [address] John 08-11-2023 BELLA Telephone (AGINTMLW) -- BRANDON MURO ([id number]) 1945 F Date Time Provider Department 08/11/23 PILAR FERRER JOANNABruna During your visit today, we recorded the following information about you: Danielito Montenegro MA 08/11/2023 3:55 PM Signed ----- Message from Pilar Ferrer APRN.PROGRAM ADMINISTRATOR sent at 08/09/2023 12:28 PM EST ----- Kidneys stable Danielito Montenegro MA 08/11/2023 3:56 PM Signed Called pt let her know the results Danielito Montenegro MA Allergies As of Date: 08/11/2023 Noted Allergy Reaction CELECOXIB 12/16/2016 14 - Other: See Comments MOLD 03/03/2012 16 - Unknown PITAVASTATIN 11/13/2012 14 - Other: See Comments Comments: Drug induced lupus. SULFA (SULFONAMIDE ANTIBIOTICS) 03/03/2012 16 - Unknown Comments: Took for bladder infection and infection became worse. TAPE (ADHESIVE TAPE (ROSINS)) 08/20/2014 2 - Rash VICODIN (HYDROCODONE-ACETAMINOPHE* 08/20/2014 8 - GI Upset Date Reviewed: 09/30/2022 Reviewed by: Pilar Ferrer APRN.PROGRAM ADMINISTRATOR - Fully Assessed Reason for Visit: Results [95] Prescriptions as of 08/11/2023 - losartan (COZAAR) 100 mg tablet Take 1 tablet by mouth once daily - omeprazole (PRILOSEC) 40 mg capsule take 1 capsule by mouth once daily - amLODIPine (NORVASC) 5 mg tablet Take 1 tablet by mouth once daily - hydroCHLOROthiazide 12.5 mg tablet Take 1 tablet by mouth once daily - venlafaxine (EFFEXOR) 75 mg tablet Take 1 tablet by mouth once daily. - cetirizine (ALLERGY RELIEF, CETIRIZINE,) 10 mg tablet Take 1 tablet by mouth once daily. - hydrOXYchloroQUINE (PLAQUENIL) 200 mg tablet TAKE 1 AND 1 2 (ONE AND ONE HALF) TABLETS BY MOUTH ONCE DAILY - albuterol HFA (PROAIR HFA) 90 mcg/actuation inhaler Inhale 2 Puffs as instructed every 6 hours as needed. Facility-Administered Medications as of 08/11/2023 - sodium chloride 0.9 % (flush) 10 mL (BD POSIFLUSH) - perflutren lipid microspheres 1.3 mL in NaCl (PF) 0.9% 10 mL injection (DEFINITY) Problem List As Of Date 08/11/2023 Noted Resolved Chronic cough [R05.3] 03/03/2012 Allergic rhinitis [J30.9] 03/03/2012 Hyperlipidemia [E78.5] 08/20/2014 Hypertension [I10] 08/20/2014 Abnormal ECG [R94.31] 11/15/2014 Mild aortic stenosis [I35.0] 11/12/2015 Obesity (BMI 35.0-39.9 without comorbidity) [E6*11/12/2015 Anxiety and depression [F41.9, F32.A] 08/11/2017 Stage 3 chronic kidney disease (HCC) [N18.30] 09/30/2022 Encounter Status:Closed by DANIELITO MONTENEGRO on 08/11/23 Normal [facility] CBC W Auto Differential pane l (Bld)on 05-03-2023 Basophils (Bld) [#/Vol] 0.06 x10*3/uL Normal 0.00-0.10 [facility] Comment on above: Performed By: #### 5 7021-8 #### PICKARD MICK ([id number]) [facility]) [address] [place] [address] Basophils/100 WBC (Bld) 1.0 % Normal 0.0-2.0 [facility] Comment on above: Performed By: #### 5 7021-8 #### NEERAJ BARTON ([id number]) [facility]) [address] [place] [address] Eosinophils (Bld) [#/Vol] 0.44 x10*3/uL High 0.00-0.40 [facility] Comment on above: Performed By: #### 5 7021-8 #### NEERAJ BARTON ([id number]) [facility]) [address] [place] [address] 97887 Eosinophils/100 WBC (Bld) 7.4 % Normal 0.0-6.0 [facility] Comment on above: Performed By: #### 5 7021-8 #### NEERAJ BARTON ([id number]) [facility]) [address] [place] [address]37 Erythrocyte distribution width (RBC) [Ratio] 13.8 % Normal 11.5-14.5 [facility] Comment on above: Performed By: #### 5 7021-8 #### NEERAJ BARTON ([id number]) [facility]) [address] [place] [address] Hematocrit (Bld) [Volume fraction] 39.4 % Normal 36.0-46.0 [facility] Comment on above: Performed By: #### 5 7021-8 #### NEERAJ BARTON ([id number]) [facility]) [address] [place] [address] 27063 Hemoglobin (Bld) [Mass/Vol] 12.1 g/dL Normal 12.0-16.0 [facility] Comment on above: Performed By: #### 5 7021-8 #### NEERAJ BARTON ([id number]) [facility]) [address] [place] [address] 51291 Immature granulocytes (Bld) [#/Vol] 0.05 x10*3/uL Normal 0.00-0.50 [facility] Comment on above: Performed By: #### 5 7021-8 #### NEERAJ BARTON ([id number]) [facility]) [address] [place] [address]39 Immature granulocytes/100 WBC (Bld) 0.8 % Normal 0.0-0.9 [facility] Comment on above: Result Comment: Jeannie ture Granulocyte Count (IG) includes promyelocytes, myelocytes and metamyelocytes but does not include bands. Percent differential counts (%) should be interpreted in the context of the absolute cell counts (cells/UL). Performed By: #### 5 7021-8 #### ENERAJ BARTON ([id number]) [facility]) [address] [place] [address] 76075 Lymphocytes (Bld) [#/Vol] 1.57 x10*3/uL Normal 0.80-3.00 [facility] Comment on above: Performed By: #### 5 7021-8 #### NEERAJ BARTON ([id number]) [facility]) [address] [place] [address] 75549 Lymphocytes/100 WBC (Bld) 26.3 % Normal 13.0-44.0 [facility] Comment on above: Performed By: #### 5 7021-8 #### NEERAJ BARTON ([id number]) [facility]) [address] [place] [address] 78199 MCH (RBC) [Entitic mass] 26.5 pg Normal 26.0-34.0 [facility] Comment on above: Performed By: #### 5 7021-8 #### NEERAJ BARTON ([id number]) [facility]) [address] [place] [address] 09176 MCHC (RBC) [Mass/Vol] 30.7 g/dL Low 32.0-36.0 [facility] Comment on above: Performed By: #### 5 7021-8 #### NEERAJ BARTON ([id number]) [facility]) [address] [place] [address] 37626 MCV (RBC) [Entitic vol] 86 fL Normal 80-100 [facility] Comment on above: Performed By: #### 5 7021-8 #### NEERAJ BARTON ([id number]) [facility]) [address] [place] [address] 69036 Monocytes (Bld) [#/Vol] 0.41 x10*3/uL Normal 0.05-0.80 [facility] Comment on above: Performed By: #### 5 7021-8 #### NEERAJ BARTON ([id number]) [facility]) [address] [place] [address] 65250 Monocytes/100 WBC (Bld) 6.9 % Normal 2.0-10.0 [facility] Comment on above: Performed By: #### 5 7021-8 #### NEERAJ BARTON ([id number]) [facility]) [address] [place] [address] 59916 Neutrophils (Bld) [#/Vol] 3.44 x10*3/uL Normal 1.60-5.50 [facility] Comment on above: Result Comment: Perc ent differential counts (%) should be interpreted in the context of the absolute cell counts (cells/uL). Performed By: #### 5 7021-8 #### NEERAJ BARTON ([id number]) [facility]) [address] [place] [address] 71712 Neutrophils/100 WBC (Bld) 57.6 % Normal 40.0-80.0 [facility] Comment on above: Performed By: #### 5 7021-8 #### NEERAJ BARTON ([id number]) [facility]) [address] [place] [address] 52478 Nucleated RBC/100 WBC (Bld) [Ratio] 0.0 /100 WBCs Normal 0.0-0.0 [facility] Comment on above: Performed By: #### 5 7021-8 #### NEERAJ BARTON ([id number]) [facility]) [address] [place] [address] 03710 Platelets (Bld) [#/Vol] 186 x10*3/uL Normal 150-450 [facility] Comment on above: Performed By: #### 5 7021-8 #### NEERAJ BARTON ([id number]) [facility]) [address] [place] [address] RBC (Bld) [#/Vol] 4.57 x10*6/uL Normal 4.00-5.20 [facility] Comment on above: Performed By: #### 5 7021-8 #### NEERAJ BARTON ([id number]) [facility] ([facility]) [address] [place] [address] WBC (Bld) [#/Vol] 6.0 x10*3/uL Normal 4.4-11.3 [facility] Comment on above: Performed By: #### 5 7021-8 #### NEERAJ BARTON ([id number]) [facility] ([facility]) [address] [place] [address] Comprehensive metabolic 2000 panelon 05-03-2023 Albumin BCP dye [Mass/Vol] 4.1 g/dL Normal 3.4-5.0 [facility] Comment on above: Performed By: #### 2 4323-8 #### NEERAJ BARTON ([id number]) [facility] ([facility]) [address] [place] [address] ALP [Catalytic activity/Vol] 72 U/L Normal 33-136 [facility] Comment on above: Performed By: #### 2 4323-8 #### NEERAJ BARTON ([id number]) [facility] ([facility]) [address] [place] [address] ALT With P-5'-P [Catalytic activity/Vol] 9 U/L Normal 7-45 [facility] Comment on above: Result Comment: Abril ents treated with Sulfasalazine may generate falsely decreased results for ALT. Performed By: #### 2 4323-8 #### NEERAJ BARTON ([id number]) [facility] ([facility]) [address] [place] [address] Anion gap [Moles/Vol] 11 mmol/L Normal 10-20 [facility] Comment on above: Performed By: #### 2 432-8 #### NEERAJ BARTON ([id number]) [facility] ([facility]) [address] [place] [address] AST With P-5'-P [Catalytic activity/Vol] 15 U/L Normal 9-39 [facility] Comment on above: Performed By: #### 2 4323-8 #### NEERAJ BARTON ([id number]) [facility] ([facility]) [address] [place] [address] Bilirubin [Mass/Vol] 0.4 mg/dL Normal 0.0-1.2 [facility] Comment on above: Performed By: #### 2 3-8 #### NEERAJ BARTON ([id number]) [facility] ([facility]) [address] [place] [address] Calcium [Mass/Vol] 9.4 mg/dL Normal 8.6-10.3 [facility] Comment on above: Performed By: #### 2 4322-8 #### NEERAJ BARTON ([id number]) [facility] ([facility]) [address] [place] [address] Chloride [Moles/Vol] 104 mmol/L Normal 98-107 [facility] Comment on above: Performed By: #### 2 432-8 #### NEERAJ BARTON ([id number]) [facility] ([facility]) [address] [place] [address] CO2 [Moles/Vol] 29 mmol/L Normal 21-32 [facility] Comment on above: Performed By: #### 2 432-8 #### NEERAJ BARTON ([id number]) [facility] ([facility]) [address] [place] [address] Creatinine [Mass/Vol] 0.92 mg/dL Normal 0.50-1.05 [facility] Comment on above: Performed By: #### 2 432-8 #### NEERAJ BARTON ([id number]) [facility] ([facility]) [address] [place] [address] GFR/1.73 sq M.predicted MDRD (S/P/Bld) [Vol rate/Area] 65 mL/min/1.73m*2 Normal >60 [facility] Comment on above: Result Comment: Calc ulations of estimated GFR are performed using the 2020 CKD-EPI Study Refit equation without the race variable for the IDMS-Traceable creatinine methods. https://jasn.asnjournals.org/content//ASN.38627134 88 Performed By: #### 2 4323-8 #### NEERAJ BARTON ([id number]) [facility] ([facility]) [address] [place] [address] Glucose [Mass/Vol] 104 mg/dL High 74-99 [facility] Comment on above: Performed By: #### 2 4323-8 #### NEERAJ BARTON ([id number]) [facility] ([facility]) [address] [place] [address] Potassium [Moles/Vol] 3.8 mmol/L Normal 3.5-5.3 [facility] Comment on above: Performed By: #### 2 4323-8 #### NEERAJ BARTON ([id number]) [facility] ([facility]) [address] [place] [address] Protein [Mass/Vol] 6.6 g/dL Normal 6.4-8.2 [facility] Comment on above: Performed By: #### 2 4323-8 #### NEERAJ BARTON ([id number]) [facility] ([facility]) [address] [place] [address] Sodium [Moles/Vol] 140 mmol/L Normal 136-145 [facility] Comment on above: Performed By: #### 2 4323-8 #### NEERAJ BARTON ([id number]) [facility] ([facility]) [address] [place] [address] Urea nitrogen [Mass/Vol] 16 mg/dL Normal 6-23 [facility] Comment on above: Performed By: #### 2 4323-8 #### NEERAJ BARTON ([id number]) [facility] ([facility]) [address] [place] [address] BMP - EXTERNALon 03-09-2023 Anion gap [Moles/Vol] 10 mmol/L [facility] Calcium [Mass/Vol] 9.4 mg/dL 8.8 - 10. 5 MG/DL [facility] Chloride [Moles/Vol] 103 mmol/L 98 - 107 MEQ/L [facility] Creatinine [Mass/Vol] 1.0 mg/dL 0.6 - 1.3 MG/DL [facility] GFR AFR AMER 59 mL/MIN [facility] GFR/1.73 sq M.predicted among non-blacks MDRD (S/P/Bld) [Vol rate/Area] 59 mL/min/{1.73_m2} [facility] Glucose [Mass/Vol] 110 mg/dL Abnormal 74 - 99 MG/DL [facility] HCO3 (Bld) [Moles/Vol] 30 mmol/L [facility] Potassium [Moles/Vol] 3.9 mmol/L 3.5 - 5.1 MEQ/L [facility] Sodium [Moles/Vol] 139 mmol/L 136 - 145 MEQ/L [facility] Urea nitrogen [Mass/Vol] 21 mg/dL 6 - 23 mg/dL [facility] TSH BLDon 03-09-2023 TSH Qn 3.97 m[IU]/L 0.44 - 3.98 [facility] BASIC METABOLIC PANELon Anion gap [Moles/Vol] 10 mmol/L [facility] Comment on above: Performed By: #### T SH2 #### [address] [address] Calcium [Mass/Vol] 9.4 mg/dL [facility] Comment on above: Performed By: #### T SH2 #### [address] [address] Chloride [Moles/Vol] 103 mmol/L [facility] Comment on above: Performed By: #### T SH2 #### [address] [address] Creatinine [Mass/Vol] 1.00 mg/dL Normal 0.50 - 1.05 [facility] Comment on above: Performed By: #### T SH2 #### [address] [address] GFR/1.73 sq M.predicted among non-blacks MDRD (S/P/Bld) [Vol rate/Area] 59 mL/min/{1.73_m2} Abnormal >90 [facility] Comment on above: Result Comment: CALC ULATIONS OF ESTIMATED GFR ARE PERFORMED USING THE 2020 CKD-EPI STUDY REFIT EQUATION WITHOUT THE RACE VARIABLE FOR THE IDMS-TRACEABLE CREATININE METHODS. https://jasn.asnjournals.org/content/early//ASN.03575980 88 Performed By: #### T SH2 #### [address] [address] Glucose [Mass/Vol] 110 mg/dL High 74 - 99 [facility] Comment on above: Performed By: #### T SH2 #### [address] [address] HCO3 (Bld) [Moles/Vol] 30 mmol/L Normal 21 - 32 [facility] Comment on above: Performed By: #### T SH2 #### [address] [address] Potassium [Moles/Vol] 3.9 mmol/L [facility] Comment on above: Performed By: #### T SH2 #### [address] [address] Sodium [Moles/Vol] 139 mmol/L [facility] Comment on above: Performed By: #### T SH2 #### [address] [address] Urea nitrogen [Mass/Vol] 21 mg/dL [facility] Comment on above: Performed By: #### T SH2 #### [address] [address] BMP EXTERNAL QAIon 3 CO2 [Moles/Vol] 30 mmol/L [facility] Creatinine per volume 1.00 [facility] Est GFR Non- 59 Abnormal [facility] THYROXINE,FREEon 03-04-2023 THYROXINE,FREE 0.80 ng/dL Normal 0.61 - 1.12 [facility] [place] Comment on above: Result Comment: Thyr oxine Free testing is performed using different testing methodology at [facility] than at other [facility]. Direct result comparisons should only be made within the same method. . Biotin can cause falsely elevated free T4 results. Patients taking a Biotin dose of up to 10 mg/day should refrain from taking Biotin for 24 hours before sample collection. Patient taking a Biotin dose of >10 mg/day should consult with their physician or the laboratory before the blood draw. Performed By: #### T 4FRE #### [address] [address] TSHon 03-04-2023 TSH Qn 3.97 m[IU]/L Normal 0.44 - 3.98 [facility] Comment on above: Result Comment: TSH testing is performed using different testing methodology at [facility] than at other [facility]. Direct result comparisons should only be made within the same method. Performed By: #### T SH2 #### [address] [address] 25-hydroxyvitamin D3 [Mass/V ol]on 01-04-2023 VITAMIN D 24 ng/mL Abnormal 31 - 80 ng/mL [facility] CBC W/DIFF/PLT (EXTERNAL LAB ROBIN)on 01-04-2023 Erythrocyte distribution width (RBC) [Ratio] 14.2 % 12.3 - 15.4 % [facility] Hematocrit (Bld) [Volume fraction] 41.3 % 37.5 - 51.0 % [facility] Hemoglobin (Bld) [Mass/Vol] 13 g/dL 12.6 - 17.7 g/dL [facility] MCHC (RBC) [Mass/Vol] 31.5 g/dL 31.5 - 35.7 g/dL [facility] MCV (RBC) [Entitic vol] 83 fL 79 - 97 fL [facility] Platelets (Bld) [#/Vol] 207 10*3/uL 150 - 379 k/uL [facility] RBC (Bld) [#/Vol] 4.98 10*6/uL 4.14 - 5.8 0 M/uL [facility] WBC (Bld) [#/Vol] 6.2 10*3/uL 3.4 - 10.8 K/uL [facility] CMP (EXTERNAL LAB ROBIN)on A/G RATIO [facility] Albumin [Mass/Vol] 4.2 g/dL 3.5 - 5.5 g/dL [facility] ALP [Catalytic activity/Vol] 74 U/L 39 - 117 IU/L [facility] ALT [Catalytic activity/Vol] 16 U/L 0 - 44 IU/L [facility] AST [Catalytic activity/Vol] 19 U/L 0 - 40 IU/L [facility] Bilirubin [Mass/Vol] 0.5 mg/dL 0.0 - 1.2 mg/dL [facility] BUN [facility] Calcium [Mass/Vol] 9.2 mg/dL 8.7 - 10. 2 mg/dL [facility] Chloride [Moles/Vol] 102 mmol/L 97 - 108 mmol/L [facility] CO2 [Moles/Vol] 28 mmol/L 18 - 29 mmol/L [facility] Creatinine [Mass/Vol] 1.08 mg/dL Abnormal 0.5 - 1.05 mg/dL [facility] eFGR NON AM 54 mL/min/1.73 Abnormal 59 - > mL/min/1.73 [facility] eGFR AM 54 mL/min/1.73 Abnormal 59 - > mL/min/1.73 [facility] GLOBULIN, TOTAL [facility] Glucose [Mass/Vol] 102 mg/dL Abnormal 65 - 99 mg/dL [facility] Potassium [Moles/Vol] 3.7 mmol/L 3.5 - 5.2 mmol/L [facility] Protein [Mass/Vol] 7.2 g/dL 6.0 - 8.5 g/dL [facility] Sodium [Moles/Vol] 138 mmol/L 134 - 144 mmol/L [facility] Urea nitrogen/Creatinine [Mass ratio] 12 mg/mg [facility] LIPID PANEL - EXTERNALon Cholesterol - Intl 212 Abnormal 0 - 199 [facility] HDL Cholesterol Bld - Intl 76 40 [facility] LDL Chol Calc - Intl 119 Abnormal 0 - 99 [facility] Non-HDL Cholesterol PL - Intl [facility] Total Chol/HDL Ratio - Intl [facility] Triglycerides Bld - Intl 83 0 - 149 [facility] TSH BLDon 01-04-2023 TSH Qn 4.30 m[IU]/L Abnormal 0.44 - 3.98 [facility] Echocardiogramon 11-25-2022 Echocardiography [facility] nter [address] [place] [address] [phone], TRANSTHORACIC ECHOCARDIOGRAM REPORT Patient Name: BRANDON MURO Reading Physician: [id number] Herson Cardenas MD Study Date: 11/25/2022 Referring Physician: Pilar Ferrer CNP MRN/PID: [id number] PCP: Accession/Order#: [id number] Department Location: [facility] Echo Lab Date of : 1945 Fellow: Gender: F Nurse: Admit Date: Cooker Cleaner: Julee Son [facility]T [facility] Admission Status: Outpatient Additional Staff: Height: 154.94 cm CC Report to: Weight: 90.72 kg Study Type: Echocardiogram BSA: 1.89 m2 Blood Pressure: 132 /84 mmHg Diagnosis/ICD: I35.0-Nonrheumatic aortic (valve) stenosis Indication: Procedure/CPT: Echo Complete w Full Doppler-[id number] Patient History: Pertinent History: No previous echo. Study Detail: The following Echo studies were performed: 2D, M-Mode, Doppler and color flow. Definity used as a contrast agent for endocardial border definition. Total contrast used for this procedure was 1 mL via IV push. A bubble study was not performed. The patient was awake. PHYSICIAN INTERPRETATION: Left Ventricle: Left ventricular systolic function is normal, with an estimated ejection fraction of 55-60%. There are no regional wall motion abnormalities. The left ventricular cavity size is normal. Spectral Doppler shows an impaired relaxation pattern of left ventricular diastolic filling. Left Atrium: The left atrium is normal in size. Right Ventricle: The right ventricle is normal in size. There is normal right ventricular global systolic function. Right Atrium: The right atrium is normal in size. Aortic Valve: The aortic valve is probably trileaflet. There is mild aortic valve regurgitation. The peak instantaneous gradient of the aortic valve is 42.0 mmHg. The mean gradient of the aortic valve is 25.0 mmHg. Mean transaortic gradient 31mm hg, peak velocity 3.7 m/s, dimensionless index 0.26; calculated MONIKA 0.8 cm squared. Mitral Valve: The mitral valve is normal in structure. There is mild mitral valve regurgitation. Tricuspid Valve: The tricuspid valve is structurally normal. There is trace tricuspid regurgitation. Pulmonic Valve: The pulmonic valve is not well visualized. There is no indication of pulmonic valve regurgitation. Pericardium: There is no pericardial effusion noted. Aorta: The aortic root is normal. Systemic Veins: The inferior vena cava appears to be of normal size. There is IVC inspiratory collapse greater than 50%. CONCLUSIONS: 1. Left ventricular systolic function is normal with a 55-60% estimated ejection fraction. 2. Spectral Doppler shows an impaired relaxation pattern of left ventricular diastolic filling. 3. Mild aortic valve regurgitation. 4. Hemodynamics suggestive of moderate-severe aortic stenosis. Consider cardiology consult. QUANTITATIVE DATA SUMMARY: 2D MEASUREMENTS: Normal Ranges: Ao Root d: 2.70 cm (2.0-3.7cm) LAs: 3.30 cm (2.7-4.0cm) IVSd: 1.05 cm (0.6-1.1cm) LVPWd: 1.01 cm (0.6-1.1cm) LVIDd: 4.58 cm (3.9-5.9cm) LVIDs: 3.07 cm LV Mass Index: 86.9 g/m2 LV % FS 33.0 % LA VOLUME: Normal Ranges: LA Vol A4C: 64.1 ml (22+/-6mL/m2) LA Vol A2C: 41.0 ml LA Vol BP: 52.5 ml LA Vol Index A4C: 33.9ml/m2 LA Vol Index A2C: 21.7 ml/m2 LA Vol Index BP: 27.8 ml/m2 LA Area A4C: 20.6 cm2 LA Area A2C: 16.1 cm2 LA [place] A4C: 5.6 cm LA [place] A2C: 5.4 cm LA Volume Index: 21.6 ml/m2 LA Vol A4C: 61.7 ml LA Vol A2C: 40.8 ml M-MODE MEASUREMENTS: Normal Ranges: AoV Exc: 0.80 cm (1.5-2.5cm) AORTA MEASUREMENTS: Normal Ranges: AoV Exc: 0.80 cm (1.5-2.5cm) LV SYSTOLIC FUNCTION BY 2D PLANIMETRY (MOD): Normal Ranges: EF-A4C View: 63.0 % (>=55%) EF-A2C View: 71.0 % EF-Biplane: 67.1 % LV DIASTOLIC FUNCTION: Normal Ranges: MV Peak E: 0.93 m/s (0.7-1.2 m/s) MV Peak A: 1.17 m/s (0.42-0.7 m/s) E/A Ratio: 0.79 (1.0-2.2) MV e' 0.07 m/s (>8.0) MV lateral e' 0.07 m/s MV medial e' 0.08 m/s E/e' Ratio: 13.23 (<8.0) MITRAL VALVE: Normal Ranges: MV DT: 250 msec (150-240msec) MITRAL INSUFFICIENCY: Normal Ranges: MR Vmax: 303.00 cm/s AORTIC VALVE: Normal Ranges: AoV Vmax: 3.24 m/s (<=1.7m/s) AoV Peak P.0 mmHg (<20mmHg) AoV Mean P.0 mmHg (1.7-11.5mmHg) LVOT Max Chaim: 0.98 m/s (<=1.1m/s) AoV VTI: 91.40 cm (18-25cm) LVOT VTI: 24.40 cm LVOT Diameter: 1.90 cm (1.8-2.4cm) AoV Area, VTI: 0.76 cm2 (2.5-5.5cm2) AoV Area,Vmax: 0.86 cm2 (2.5-4.5cm2) AoV Dimensionless Index: 0.27 AORTIC INSUFFICIENCY: AI Vmax: 4.30 m/s AI Half-time: 554 msec AI Decel Rate: 265.50 cm/s2 RIGHT VENTRICLE: RV 1 3.36 cm RV 2 2.06 cm RV 3 6.61 cm TAPSE: 18.4 mm TRICUSPID VALVE/RVSP: Normal Ranges: Peak TR Velocity: 2.71 m/s RV Syst Pressure: 32.4 mmHg (< 30mmHg) PULMONIC VALVE: Normal Ranges: PV Accel Time: 92 msec (>120ms) PV Max Chaim: 1.0 m/s (0.6-0.9m/s) PV Max P.2 mmHg [id number] Herson Cardenas MD (more content not included)... Normal [facility] Narrative Note - Outpatient- CPS for definityon 11-25-2022 Narrative Note - Outpatient-CPS for definity Narrative Note: Discipline/ClinicCPS for definity Description Was called to CPS department to give Definity. Started a 22g IV in the R AC on first attempt. Flushed the IV with normal saline. Then the industrial maintenance technician instructed to give 1ml of Definity. Exam completed and IV flushed with normal saline and d/c with. angiocath intact. Dressing applied to IV location. Patient tolerated without complaint. Electronic Signatures: Latisha Marie (RN) (Signed 25-Nov-2022 10:14) Authored: Narrative Note - OP Last Updated: 25-Nov-2022 10:14 by Latisha Marie (RN) [facility] [place] [address] [phone], Vascular Lab Report Carotid Artery Duplex Ultrasound Patient Name: BRANDON MURO Reading Physician: [id number] Miles Hines MD Study Date: 11/25/2022 Referring Physician: Pilar Ferrer CNP MRN/PID: [id number] PCP: Accession/Order#: [id number] CC Report to: Date of : 1945 Technologist: Humphrey Patel Gender: F Technologist 2: Admission Status: Outpatient Location Performed: [facility] Diagnosis/ICD: R09.89-Other specified symptoms and signs involving the circulatory and respiratory systems; I65.23-Occlusion and stenosis of bilateral carotid arteries Procedure/CPT: 80390 Cerebrovascular Carotid Duplex scan complete-[id number] CONCLUSIONS: Right Carotid: Findings are consistent with less than 50% stenosis of the right proximal ICA. Laminar flow seen by color Doppler. Right external carotid artery appears patent with no evidence of stenosis. No evidence of hemodynamically significant stenosis of the right common carotid artery. The right vertebral artery is patent with antegrade flow. No evidence of hemodynamically significant stenosis in the right subclavian artery. Abnormal findings noted in the right thyroid. Left Carotid: Findings are consistent with less than 50% stenosis of the left proximal ICA. Turbulent flow seen by color Doppler. Left external carotid artery appears patent with no evidence of stenosis. No evidence of hemodynamically significant stenosis of the left common carotid artery. The left vertebral artery is patent with antegrade flow. No evidence of hemodynamically significant stenosis in the left subclavian artery. Abnormal findings noted in the left thyroid. Imaging AND Doppler Findings: Right Plaque Morph: The proximal right internal carotid artery demonstrates heterogenous plaque. The right carotid bulb demonstrates heterogenous plaque. Left Plaque Morph: The proximal left internal carotid artery demonstrates irregular and calcified plaque. The proximal left external carotid artery demonstrates irregular and calcified plaque. The left carotid bulb demonstrates irregular and calcified plaque. Right Left PSV EDV PSV EDV 98 cm/s CCA P 71 cm/s 87 cm/s CCA D 84 cm/s 82 cm/s 22 cm/s ICA P 100 cm/s 18 cm/s 108 cm/s 37 cm/s ICA D 103 cm/s 36 cm/s 107 cm/s ECA 88 cm/s 47 cm/s 13 cm/s Vertebral 43 cm/s 11 cm/s 173 cm/s Subclavian 200 cm/s Right Left ICA/CCA Ratio 0.9 1.2 [id number] Miles Hines MD Final Normal [facility] CBC AND DIFFERENTIALon 11-11 % AUTOMATED IMMATURE GRAN 0.3 % Normal 0.0 - 0.9 [facility] Comment on above: Result Comment: Jeannie ture Granulocyte Count (IG) includes promyelocytes, myelocytes and metamyelocytes but does not include bands. Percent differential counts (%) should be interpreted in the context of the absolute cell counts (cells/L). Performed By: #### C BCDF #### [address] [address] Basophils (Bld) [#/Vol] 0.06 10*3/uL Normal 0.00 - 0.10 [facility] Comment on above: Performed By: #### C BCDF #### [address] [address] Basophils/100 WBC (Bld) 1.0 % Normal 0.0 - 2.0 [facility] Comment on above: Performed By: #### C BCDF #### [address] [address] Eosinophils (Bld) [#/Vol] 0.35 10*3/uL Normal 0.00 - 0.40 [facility] Comment on above: Performed By: #### C BCDF #### [address] [address] Eosinophils/100 WBC (Bld) 5.8 % Normal 0.0 - 6.0 [facility] Comment on above: Performed By: #### C BCDF #### [address] [address] Erythrocyte distribution width (RBC) [Ratio] 14.3 % Normal 11.5 - 14.5 [facility] Comment on above: Performed By: #### C BCDF #### [address] [address] Hematocrit (Bld) [Volume fraction] 40.9 % Normal 36.0 - 46.0 [facility] Comment on above: Performed By: #### C BCDF #### [address] [address] Hemoglobin (Bld) [Mass/Vol] 12.6 g/dL Normal 12.0 - 16.0 [facility] Comment on above: Performed By: #### C BCDF #### [address] [address] Lymphocytes (Bld) [#/Vol] 2.07 10*3/uL Normal 0.80 - 3.00 [facility] Comment on above: Performed By: #### C BCDF #### [address] [address] Lymphocytes/100 WBC (Bld) 34.5 % Normal 13.0 - 44.0 [facility] Comment on above: Performed By: #### C BCDF #### [address] [address] MCHC (RBC) [Mass/Vol] 30.8 g/dL Low 32.0 - 36.0 [facility] Comment on above: Performed By: #### C BCDF #### [address] [address] MCV (RBC) [Entitic vol] 84 fL Normal 80 - 100 [facility] Comment on above: Performed By: #### C BCDF #### [address] [address] Monocytes (Bld) [#/Vol] 0.39 10*3/uL Normal 0.05 - 0.80 [facility] Comment on above: Performed By: #### C BCDF #### [address] [address] Monocytes/100 WBC (Bld) 6.5 % Normal 2.0 - 10.0 [facility] Comment on above: Performed By: #### C BCDF #### [address] [address] Neutrophils (Bld) [#/Vol] 3.11 10*3/uL Normal 1.60 - 5.50 [facility] Comment on above: Result Comment: Perc ent differential counts (%) should be interpreted in the context of the absolute cell counts (cells/L). Performed By: #### C BCDF #### [address] [address] Neutrophils/100 WBC (Bld) 51.9 % Normal 40.0 - 80.0 [facility] Comment on above: Performed By: #### C BCDF #### [address] [address] Platelets (Bld) [#/Vol] 192 10*3/uL Normal 150 - 450 [facility] Comment on above: Performed By: #### C BCDF #### [address] [address] RBC 4.86 x10E12/L Normal 4.00 - 5.20 [facility] Comment on above: Performed By: #### C BCDF #### [address] [address] WBC (Bld) [#/Vol] 6.0 10*3/uL Normal 4.4 - 11.3 [facility] Comment on above: Performed By: #### C BCDF #### [address] [address] COMPREHENSIVE PANELon 2022 Albumin [Mass/Vol] 4.0 g/dL Normal 3.4 - 5.0 [facility] Comment on above: Performed By: #### C MP #### [address] [address] ALP [Catalytic activity/Vol] 76 U/L Normal 33 - 136 [facility] Comment on above: Performed By: #### C MP #### [address] [address] ALT [Catalytic activity/Vol] 11 U/L Normal 7 - 45 [facility] Comment on above: Result Comment: Abril ents treated with Sulfasalazine may generate falsely decreased results for ALT. Performed By: #### C MP #### [address] [address] Anion gap [Moles/Vol] 10 mmol/L Normal 10 - 20 [facility] Comment on above: Performed By: #### C MP #### [address] [address] AST [Catalytic activity/Vol] 14 U/L Normal 9 - 39 [facility] Comment on above: Performed By: #### C MP #### [address] [address] Bilirubin [Mass/Vol] 0.5 mg/dL Normal 0.0 - 1.2 [facility] Comment on above: Performed By: #### C MP #### [address] [address] Calcium [Mass/Vol] 9.6 mg/dL Normal 8.6 - 10.3 [facility] Comment on above: Performed By: #### C MP #### [address] [address] Chloride [Moles/Vol] 105 mmol/L Normal 98 - 107 [facility] Comment on above: Performed By: #### C MP #### [address] [address] Creatinine [Mass/Vol] 1.03 mg/dL Normal 0.50 - 1.05 [facility] Comment on above: Performed By: #### C MP #### [address] [address] GFR/1.73 sq M.predicted among non-blacks MDRD (S/P/Bld) [Vol rate/Area] 57 mL/min/{1.73_m2} Abnormal >90 [facility] Comment on above: Result Comment: CALC ULATIONS OF ESTIMATED GFR ARE PERFORMED USING THE 2020 CKD-EPI STUDY REFIT EQUATION WITHOUT THE RACE VARIABLE FOR THE IDMS-TRACEABLE CREATININE METHODS. https://jasn.asnjournals.org/content/early//ASN.05937767 88 Performed By: #### C MP #### [address] [address] Glucose [Mass/Vol] 97 mg/dL Normal 74 - 99 [facility] Comment on above: Performed By: #### C MP #### [address] [address] HCO3 (Bld) [Moles/Vol] 29 mmol/L Normal 21 - 32 [facility] Comment on above: Performed By: #### C MP #### [address] [address] Potassium [Moles/Vol] 3.7 mmol/L Normal 3.5 - 5.3 [facility] Comment on above: Performed By: #### C MP #### [address] [address] Protein [Mass/Vol] 7.2 g/dL Normal 6.4 - 8.2 [facility] Comment on above: Performed By: #### C MP #### [address] [address] Sodium [Moles/Vol] 140 mmol/L Normal 136 - 145 [facility] Comment on above: Performed By: #### C MP #### [address] [address] Urea nitrogen [Mass/Vol] 24 mg/dL High 6 - 23 [facility] Comment on above: Performed By: #### C MP #### [address] [address] DIGITAL MAMM SCREENING W/ TO Piper 10-29-2022 DIGITAL MAMM SCREENING W/ FREDA Patient Name: BRANDON MURO STUDY: Digital mammography screening with freda; 10/29/2022 12:01 pm ACCESSION NUMBER(S): [id number] ORDERING CLINICIAN: PILAR FERRER INDICATION: Screening. COMPARISON: Comparison is made to prior digital mammograms dated 09/13/2018 FINDINGS: CC and MLO 2D digital mammograms and digital breast tomosynthesis images were obtained of the bilateral breasts. 3-D volume images were reconstructed in 4 views at an independent workstation as 1 mm slices through the breasts in both the CC and MLO projections. There are areas of scattered fibroglandular tissue. Scattered dystrophic and vascular calcifications are seen bilaterally, similar to prior studies. No discrete mass or focal asymmetry is identified. No suspicious microcalcifications or foci of architectural distortion are seen. There has been no significant change. This study was interpreted with CAD. IMPRESSION: No mammographic evidence of malignancy. BI-RADS CATEGORY: Category: 2 - Benign. Recommendation: 1 Year Screening. Electronically signed by: JAH SINHA MD [facility] CBCon 10-21-2022 Erythrocyte distribution width (RBC) [Ratio] 14.2 % Normal 11.5 - 14.5 [facility] Comment on above: Performed By: #### C BC #### [address] [address] Hematocrit (Bld) [Volume fraction] 41.3 % Normal 36.0 - 46.0 [facility] Comment on above: Performed By: #### C BC #### [address] [address] Hemoglobin (Bld) [Mass/Vol] 13.0 g/dL Normal 12.0 - 16.0 [facility] Comment on above: Performed By: #### C BC #### [address] [address] MCHC (RBC) [Mass/Vol] 31.5 g/dL Low 32.0 - 36.0 [facility] Comment on above: Performed By: #### C BC #### [address] [address] MCV (RBC) [Entitic vol] 83 fL Normal 80 - 100 [facility] Comment on above: Performed By: #### C BC #### [address] [address] Platelets (Bld) [#/Vol] 207 10*3/uL Normal 150 - 450 [facility] Comment on above: Performed By: #### C BC #### [address] [address] RBC 4.98 x10E12/L Normal 4.00 - 5.20 [facility] Comment on above: Performed By: #### C BC #### [address] [address] WBC (Bld) [#/Vol] 6.2 10*3/uL Normal 4.4 - 11.3 [facility] Comment on above: Performed By: #### C BC #### [place] [id number] COMPREHENSIVE PANELon 2022 Albumin [Mass/Vol] 4.2 g/dL Normal 3.4 - 5.0 [facility] Comment on above: Performed By: #### C MP #### [address] [address] ALP [Catalytic activity/Vol] 74 U/L Normal 33 - 136 [facility] Comment on above: Performed By: #### C MP #### [address] [address] ALT [Catalytic activity/Vol] 16 U/L Normal 7 - 45 [facility] Comment on above: Result Comment: Abril ents treated with Sulfasalazine may generate falsely decreased results for ALT. Performed By: #### C MP #### [address] [address] Anion gap [Moles/Vol] 12 mmol/L Normal 10 - 20 [facility] Comment on above: Performed By: #### C MP #### [address] [address] AST [Catalytic activity/Vol] 19 U/L Normal 9 - 39 [facility] Comment on above: Performed By: #### C MP #### [address] [address] Bilirubin [Mass/Vol] 0.5 mg/dL Normal 0.0 - 1.2 [facility] Comment on above: Performed By: #### C MP #### [address] [address] Calcium [Mass/Vol] 9.2 mg/dL Normal 8.6 - 10.3 [facility] Comment on above: Performed By: #### C MP #### [address] [address] Chloride [Moles/Vol] 102 mmol/L Normal 98 - 107 [facility] Comment on above: Performed By: #### C MP #### [address] [address] Creatinine [Mass/Vol] 1.08 mg/dL High 0.50 - 1.05 [facility] Comment on above: Performed By: #### C MP #### [address] [address] GFR/1.73 sq M.predicted among non-blacks MDRD (S/P/Bld) [Vol rate/Area] 54 mL/min/{1.73_m2} Abnormal >90 [facility] Comment on above: Result Comment: CALC ULATIONS OF ESTIMATED GFR ARE PERFORMED USING THE 2020 CKD-EPI STUDY REFIT EQUATION WITHOUT THE RACE VARIABLE FOR THE IDMS-TRACEABLE CREATININE METHODS. https://jasn.asnjournals.org/content//ASN.14309199 88 Performed By: #### C MP #### [address] [address] Glucose [Mass/Vol] 102 mg/dL High 74 - 99 [facility] Comment on above: Performed By: #### C MP #### [address] [address] HCO3 (Bld) [Moles/Vol] 28 mmol/L Normal 21 - 32 [facility] Comment on above: Performed By: #### C MP #### [address] [address] Potassium [Moles/Vol] 3.7 mmol/L Normal 3.5 - 5.3 [facility] Comment on above: Performed By: #### C MP #### [address] [address] Protein [Mass/Vol] 7.2 g/dL Normal 6.4 - 8.2 [facility] Comment on above: Performed By: #### C MP #### [address] [address] Sodium [Moles/Vol] 138 mmol/L Normal 136 - 145 [facility] Comment on above: Performed By: #### C MP #### [address] [address] Urea nitrogen [Mass/Vol] 22 mg/dL Normal 6 - 23 [facility] Comment on above: Performed By: #### C MP #### [address] [address] LIPID PANEL (CORONARY RISK 2 )on 10-21-2022 Cholesterol [Mass/Vol] 212 mg/dL High 0 - 199 [facility] Comment on above: Result Comment: . AGE DESIRABLE BORDERLINE HIGH HIGH 0-19 Y 0 - 169 170 - 199 >/= 200 20-24 Y 0 - 189 190 - 224 >/= 225 >24 Y 0 - 199 200 - 239 >/= 240 All ranges are based on fasting samples. Specific therapeutic targets will vary based on patient-specific cardiac risk. . Pediatric guidelines reference:Pediatrics 2011, 128(S5). Adult guidelines reference: NCEP ATPIII Guidelines, CRISTOBAL 2001, 258:2486-97 . Venipuncture immediately after or during the administration of Metamizole may lead to falsely low results. Testing should be performed immediately prior to Metamizole dosing. Performed By: #### L IPID #### [facility] [address] Cholesterol in HDL [Mass/Vol] 76.0 mg/dL Normal [facility] Comment on above: Result Comment: . AGE VERY LOW LOW NORMAL HIGH 0-19 Y < 35 < 40 40-45 ---- 20-24 Y ---- < 40 >45 ---- >24 Y ---- < 40 40-60 >60 . Performed By: #### L IPID #### [address] [address] Cholesterol in LDL [Mass/Vol] 119 mg/dL High 0 - 99 [facility] Comment on above: Result Comment: . NEAR BORD AGE DESIRABLE OPTIMAL HIGH HIGH VERY HIGH 0-19 Y 0 - 109 --- 110-129 >/= 130 ---- 20-24 Y 0 - 119 --- 120-159 >/= 160 ---- >24 Y 0 - 99 100-129 130-159 160-189 >/=190 . Performed By: #### L IPID #### [address] [address] Cholesterol in VLDL [Mass/Vol] 17 mg/dL Normal 0 - 40 [facility] Comment on above: Performed By: #### L IPID #### [address] [address] Cholesterol.total/C holesterol in HDL [Mass ratio] 2.8 {ratio} Normal [facility] Comment on above: Result Comment: REF VALUES DESIRABLE < 3.4 HIGH RISK > 5.0 Performed By: #### L IPID #### [address] [address] Triglyceride [Mass/Vol] 83 mg/dL Normal 0 - 149 [facility] Comment on above: Result Comment: . AGE DESIRABLE BORDERLINE HIGH HIGH VERY HIGH 0 D-90 D 19 - 174 ---- ---- ---- 91 D- 9 Y 0 - 74 75 - 99 >/= 100 ---- 10-19 Y 0 - 89 90 - 129 >/= 130 ---- 20-24 Y 0 - 114 115 - 149 >/= 150 ---- >24 Y 0 - 149 150 - 199 200- 499 >/= 500 . Venipuncture immediately after or during the administration of Metamizole may lead to falsely low results. Testing should be performed immediately prior to Metamizole dosing. Performed By: #### L IPID #### [address] [address] TSHon 10-21-2022 TSH Qn 4.30 m[IU]/L High 0.44 - 3.98 [facility] Comment on above: Result Comment: TSH testing is performed using different testing methodology at [facility] than at other [facility]. Direct result comparisons should only be made within the same method. Performed By: #### T SH2 #### [address] [address] VITAMIN D, 25-HYDROXYon 09-27 VITAMIN D, 25-HYDROXY 24 ng/mL Abnormal [facility] Comment on above: Result Comment: . DEFICIENCY: < 20 NG/ML INSUFFICIENCY: 20-29 NG/ML SUFFICIENCY: 30-100 NG/ML THIS ASSAY ACCURATELY QUANTIFIES THE SUM OF VITAMIN D3, 25-HYDROXY AND VIT D2,25-HYDROXY. Performed By: #### V TDOH #### [address] [address] Colonoscopyon 09-16-2022 Colonoscopy PATIENTNAME Patient Name: Brandon Muro EXAMDATE Procedure Date: 09/16/2022 10:18 AM PATIENTID PATIENTACCOUNTNUM PATIENTDOB Date of : 1945 ADMITTYPE Admit Type: Outpatient PATIENTROOM Site: [facility] 1 ETHNICITY Ethnicity: Not or RACE Race: White PROVDR Attending MD: Sesar Quinones DO, [id number] ENDOPROCEDURENAME Procedure: Colonoscopy INDICATION Indications: Hematochezia PRIMARYPROVIDER Providers: Sesar Quinones DO (Doctor), Elizabeth Jarvis RN (Nurse), Edwige Crane RN (Nurse), Lamberto Parsons RN (Nurse) EDREFPROVIDER Referring: Pilar Ferrer CURRENT_MEDS Medicines: Midazolam 6 mg IV, Meperidine 50 mg IV, Glucagon 1 mg IV COMPLIC Complications: No immediate complications. ENDOPROCEDURETEXT Procedure: Pre-Anesthesia Assessment: - Prior to the procedure, a History and Physical was performed, and patient medications and allergies were reviewed. The patient is competent. The risks and benefits of the procedure and the sedation options and risks were discussed with the patient. All questions were answered and informed consent was obtained. Patient identification and proposed procedure were verified by the physician in the pre-procedure area. Mental Status Examination: alert and oriented. Airway Examination: normal oropharyngeal airway and neck mobility. Respiratory Examination: clear to auscultation. CV Examination: normal. Prophylactic Antibiotics: The patient does not require prophylactic antibiotics. Prior Anticoagulants: The patient has taken no anticoagulant or antiplatelet agents. ASA Grade Assessment: II - A patient with mild systemic disease. After reviewing the risks and benefits, the patient was deemed in satisfactory condition to undergo the procedure. The anesthesia plan was to use moderate sedation / analgesia (conscious sedation). Immediately prior to administration of medications, the patient was re-assessed for adequacy to receive sedatives. The heart rate, respiratory rate, oxygen saturations, blood pressure, adequacy of pulmonary ventilation, and response to care were monitored throughout the procedure. The physical status of the patient was re-assessed after the procedure. After I obtained informed consent, the scope was passed under direct vision. Throughout the procedure, the patient's blood pressure, pulse, and oxygen saturations were monitored continuously. The pediatric colonoscope was introduced through the anus and advanced to the terminal ileum, with identification of the appendiceal orifice and IC valve. The colonoscopy was performed without difficulty. The patient tolerated the procedure well. The quality of the bowel preparation was excellent. The ileocecal valve, appendiceal orifice, and rectum were photographed. FINDING Findings: The perianal and digital rectal examinations were normal. Pertinent negatives include normal sphincter tone and no palpable rectal lesions. Multiple small and large-mouthed diverticula were found in the sigmoid colon. There was evidence of diverticular spasm. Non-bleeding internal hemorrhoids were found during retroflexion. The hemorrhoids were Grade II (internal hemorrhoids that prolapse but reduce spontaneously). SEDATION Moderate Sedation: Moderate (conscious) sedation was administered by the nurse and supervised by the endoscopist. The following parameters were monitored: oxygen saturation, heart rate, blood pressure, and response to care. Total physician intraservice time was 21 minutes. EBL Estimated Blood Loss: Estimated blood loss: none. IMPRESS Impression: - Moderate diverticulosis in the sigmoid colon. There was evidence of diverticular spasm. - Non-bleeding internal hemorrhoids. - No specimens collected. ENDORECOMMENDATION Recommendation: - Patient has a contact number available for emergencies. The signs and symptoms of potential delayed complications were discussed with the patient. Return to normal activities tomorrow. Written discharge instructions were provided to the patient. - Resume previous diet. - Continue present medications. - Repeat colonoscopy in 10 years for screening purposes. CPT_CODES Procedure Code(s): --- Professional --- 53109, Colonoscopy, flexible; diagnostic, including collection of specimen(s) by brushing or washing, when performed (separate procedure) G0500, Moderate sedation services provided by the same physician or other qualified health home care giver performing a gastrointestinal endoscopic service that sedation supports, requiring the presence of an independent trained observer to assist in the monitoring of the patient's level of consciousness and physiological status; initial 15 minutes of intra-service time; patient age 5 years or older (additional time may be reported with 23610, as (more content not included)... Normal [facility] CBC AND DIFFERENTIALon 05-06 % AUTOMATED IMMATURE GRAN 0.8 % Normal 0.0 - 0.9 [facility] Comment on above: Result Comment: Jeannie ture Granulocyte Count (IG) includes promyelocytes, myelocytes and metamyelocytes but does not include bands. Percent differential counts (%) should be interpreted in the context of the absolute cell counts (cells/L). Performed By: #### C BCDF #### [address] [address] Basophils (Bld) [#/Vol] 0.02 10*3/uL Normal 0.00 - 0.10 [facility] Comment on above: Performed By: #### C BCDF #### [address] [address] Basophils/100 WBC (Bld) 0.2 % Normal 0.0 - 2.0 [facility] Comment on above: Performed By: #### C BCDF #### [address] [address] Erythrocyte distribution width (RBC) [Ratio] 13.2 % Normal 11.5 - 14.5 [facility] Comment on above: Performed By: #### C BCDF #### [address] [address] Hematocrit (Bld) [Volume fraction] 37.4 % Normal 36.0 - 46.0 [facility] Comment on above: Performed By: #### C BCDF #### [address] [address] Hemoglobin (Bld) [Mass/Vol] 11.9 g/dL Low 12.0 - 16.0 [facility] Comment on above: Performed By: #### C BCDF #### [address] [address] Lymphocytes (Bld) [#/Vol] 0.72 10*3/uL Low 0.80 - 3.00 [facility] Comment on above: Performed By: #### C BCDF #### [address] [address] Lymphocytes/100 WBC (Bld) 8.1 % Normal 13.0 - 44.0 [facility] Comment on above: Performed By: #### C BCDF #### [address] [address] MCHC (RBC) [Mass/Vol] 31.8 g/dL Low 32.0 - 36.0 [facility] Comment on above: Performed By: #### C BCDF #### [address] [address] MCV (RBC) [Entitic vol] 85 fL Normal 80 - 100 [facility] Comment on above: Performed By: #### C BCDF #### [address] [address] Monocytes (Bld) [#/Vol] 0.17 10*3/uL Normal 0.05 - 0.80 [facility] Comment on above: Performed By: #### C BCDF #### [address] [address] Monocytes/100 WBC (Bld) 1.9 % Normal 2.0 - 10.0 [facility] Comment on above: Performed By: #### C BCDF #### [address] [address] Neutrophils (Bld) [#/Vol] 7.88 10*3/uL High 1.60 - 5.50 [facility] Comment on above: Result Comment: Perc ent differential counts (%) should be interpreted in the context of the absolute cell counts (cells/L). Performed By: #### C BCDF #### [address] [address] Neutrophils/100 WBC (Bld) 89.0 % Normal 40.0 - 80.0 [facility] Comment on above: Performed By: #### C BCDF #### [address] [address] Platelets (Bld) [#/Vol] 196 10*3/uL Normal 150 - 450 [facility] Comment on above: Performed By: #### C BCDF #### [address] [address] RBC 4.39 x10E12/L Normal 4.00 - 5.20 [facility] Comment on above: Performed By: #### C BCDF #### [address] [address] WBC (Bld) [#/Vol] 8.9 10*3/uL Normal 4.4 - 11.3 [facility] Comment on above: Performed By: #### C BCDF #### [address] [address] COMPREHENSIVE PANELon 2021 Albumin [Mass/Vol] 4.1 g/dL Normal 3.4 - 5.0 [facility] Comment on above: Performed By: #### C MP #### [address] [address] ALP [Catalytic activity/Vol] 66 U/L Normal 33 - 136 [facility] Comment on above: Performed By: #### C MP #### [address] [address] ALT [Catalytic activity/Vol] 10 U/L Normal 7 - 45 [facility] Comment on above: Result Comment: Abril ents treated with Sulfasalazine may generate falsely decreased results for ALT. Performed By: #### C MP #### [address] [address] Anion gap [Moles/Vol] 13 mmol/L Normal 10 - 20 [facility] Comment on above: Performed By: #### C MP #### [address] [address] AST [Catalytic activity/Vol] 15 U/L Normal 9 - 39 [facility] Comment on above: Performed By: #### C MP #### [address] [address] Bilirubin [Mass/Vol] 0.3 mg/dL Normal 0.0 - 1.2 [facility] Comment on above: Performed By: #### C MP #### [address] [address] Calcium [Mass/Vol] 9.6 mg/dL Normal 8.6 - 10.3 [facility] Comment on above: Performed By: #### C MP #### [address] [address] Chloride [Moles/Vol] 106 mmol/L Normal 98 - 107 [facility] Comment on above: Performed By: #### C MP #### [address] [address] Creatinine [Mass/Vol] 1.24 mg/dL High 0.50 - 1.05 [facility] Comment on above: Performed By: #### C MP #### [address] [address] GFR/1.73 sq M.predicted among non-blacks MDRD (S/P/Bld) [Vol rate/Area] 45 mL/min/{1.73_m2} Abnormal >90 [facility] Comment on above: Result Comment: CALC ULATIONS OF ESTIMATED GFR ARE PERFORMED USING THE 2020 CKD-EPI STUDY REFIT EQUATION WITHOUT THE RACE VARIABLE FOR THE IDMS-TRACEABLE CREATININE METHODS. https://jasn.asnjournals.org/content/early/ASN.46261255 88 Performed By: #### C MP #### [address] [address] Glucose [Mass/Vol] 104 mg/dL High 74 - 99 [facility] Comment on above: Performed By: #### C MP #### [address] [address] HCO3 (Bld) [Moles/Vol] 27 mmol/L Normal 21 - 32 [facility] Comment on above: Performed By: #### C MP #### [address] [address] Potassium [Moles/Vol] 3.9 mmol/L Normal 3.5 - 5.3 [facility] Comment on above: Performed By: #### C MP #### [address] [address] Protein [Mass/Vol] 7.1 g/dL Normal 6.4 - 8.2 [facility] Comment on above: Performed By: #### C MP #### [address] [address] Sodium [Moles/Vol] 142 mmol/L Normal 136 - 145 [facility] Comment on above: Performed By: #### C MP #### [address] [address] Urea nitrogen [Mass/Vol] 26 mg/dL High 6 - 23 [facility] Comment on above: Performed By: #### C MP #### [address] [address] Coronavirus 2019 RNA by PCR, Screening Asymptomticon 08-22-2021 Coronavirus 2019 RNA by PCR, Screening Asymptomtic Not detected Normal See Below [facility] Work Phone: Comment on above: SOURCE: Nasal, Nasop haryngealReference Range: Not Detected.This assay is designed to detect the N, ORF1ab and/or S genes of SARS-CoV-2 via nucleic acid amplification. A Negative (NOT DETECTED) result does not preclude 2019-nCoV infection since the adequacy of sample collection and/or low viral burden may result in presence of viral nucleic acids below the clinical sensitivity of this test method. Negative (NOT DETECTED) result should not be used as the sole basis for treatment or other patient management decisions. Rather negative results should be combined with clinical observations, patient history, and epidemiological information to make patient management decisions.Fact sheet for providers: https://www.fda.gov/media/148144/downloadFact sheet for patients: https://www.fda.gov/media/060494/downloadThis test has received FDA Emergency Use Authorization (EUA) and has been verified by [facility] ([facility]). This test is only authorized for the duration of time that circumstances exist to justify the authorization of the emergency use of in vitro diagnostic tests for the detection of SARS-CoV-2 virus and/or diagnosis of COVID-19 infection under section 564(b)(1) of the Act, 21 U.S.C. 360bbb-3(b)(1), unless the authorization is terminated or revoked sooner. [facility] is certified under CLIA-88 as qualified to perform high complexity testing. Testing is performed in the [facility] laboratories located at [address] [place] [address]. OBSOLETEon 05-28-2021 OBSOLETE Refill (AGINTMLW) -- BRANDON MURO ([id number]) 1945 F Date Time Provider Department 05/28/21 PILAR FERRERMLW During your visit today, we recorded the following information about you: Michelle Arzate MA 05/28/2021 10:14 AM Signed Valid script was already sent. Michelle Arzate MA Allergies As of Date: 05/28/2021 Noted Allergy Reaction MOLD 03/03/2012 16 - Unknown PITAVASTATIN 11/13/2012 14 - Other: See Comments Comments: Drug induced lupus. SULFA (SULFONAMIDE ANTIBIOTICS) 03/03/2012 16 - Unknown Comments: Took for bladder infection and infection became worse. TAPE (ADHESIVE TAPE (ROSINS)) 08/20/2014 2 - Rash VICODIN (HYDROCODONE-ACETAMINOPHE* 08/20/2014 8 - GI Upset Date Reviewed: 05/14/2021 Reviewed by: Pilar Ferrer APRN.PROGRAM ADMINISTRATOR - Fully Assessed Reason for Visit: Refill Request [94] Prescriptions as of 05/28/2021 - losartan (COZAAR) 100 mg tablet Take 1 tablet by mouth once daily. - amLODIPine (NORVASC) 5 mg tablet Take 1 tablet by mouth once daily. - hydroCHLOROthiazide (HYDRODIURIL, ESIDRIX) 12.5 mg tablet Take 1 tablet by mouth once daily. - cetirizine (ZYRTEC) 10 mg tablet Take 1 tablet by mouth once daily. - venlafaxine (EFFEXOR) 75 mg tablet Take 1 tablet by mouth twice daily. - omeprazole (PRILOSEC) 40 mg capsule Take 1 capsule by mouth once daily. - hydrOXYchloroQUINE (PLAQUENIL) 200 mg tablet TAKE 1 AND 1 2 (ONE AND ONE HALF) TABLETS BY MOUTH ONCE DAILY - albuterol HFA (PROAIR HFA) 90 mcg/actuation inhaler Inhale 2 Puffs as instructed every 6 hours as needed. Problem List As Of Date 05/28/2021 Noted Resolved Chronic cough [R05.3] 03/03/2012 Allergic rhinitis [J30.9] 03/03/2012 Hyperlipidemia [E78.5] 08/20/2014 Hypertension [I10] 08/20/2014 Abnormal ECG [R94.31] 11/15/2014 Mild aortic stenosis [I35.0] 11/12/2015 Obesity (BMI 35.0-39.9 without comorbidity) [E6*11/12/2015 Anxiety and depression [F41.9, F32.A] 08/11/2017 Encounter Status:Closed by MICHELLE ARZATE on 05/28/21 [facility] OBSOLETEon 05-27-2021 OBSOLETE Refill (AGINTMLW) -- DARRINBRANDON CARD ([id number]) 1945 F Date Time Provider Department 05/27/21 PILAR FERRER AGINTMLW During your visit today, we recorded the following information about you: Michelle Arzate MA 05/27/2021 10:39 AM Signed Valid script at pharmacy. Michelle Arzate MA Allergies As of Date: 05/27/2021 Noted Allergy Reaction MOLD 03/03/2012 16 - Unknown PITAVASTATIN 11/13/2012 14 - Other: See Comments Comments: Drug induced lupus. SULFA (SULFONAMIDE ANTIBIOTICS) 03/03/2012 16 - Unknown Comments: Took for bladder infection and infection became worse. TAPE (ADHESIVE TAPE (ROSINS)) 08/20/2014 2 - Rash VICODIN (HYDROCODONE-ACETAMINOPHE* 08/20/2014 8 - GI Upset Date Reviewed: 05/14/2021 Reviewed by: Pilar Ferrer, JULIO.PROGRAM ADMINISTRATOR - Fully Assessed Reason for Visit: Refill Request [94] Prescriptions as of 05/27/2021 - losartan (COZAAR) 100 mg tablet Take 1 tablet by mouth once daily. - amLODIPine (NORVASC) 5 mg tablet Take 1 tablet by mouth once daily. - hydroCHLOROthiazide (HYDRODIURIL, ESIDRIX) 12.5 mg tablet Take 1 tablet by mouth once daily. - cetirizine (ZYRTEC) 10 mg tablet Take 1 tablet by mouth once daily. - venlafaxine (EFFEXOR) 75 mg tablet Take 1 tablet by mouth twice daily. - omeprazole (PRILOSEC) 40 mg capsule Take 1 capsule by mouth once daily. - hydrOXYchloroQUINE (PLAQUENIL) 200 mg tablet TAKE 1 AND 1 2 (ONE AND ONE HALF) TABLETS BY MOUTH ONCE DAILY - albuterol HFA (PROAIR HFA) 90 mcg/actuation inhaler Inhale 2 Puffs as instructed every 6 hours as needed. Problem List As Of Date 05/27/2021 Noted Resolved Chronic cough [R05.3] 03/03/2012 Allergic rhinitis [J30.9] 03/03/2012 Hyperlipidemia [E78.5] 08/20/2014 Hypertension [I10] 08/20/2014 Abnormal ECG [R94.31] 11/15/2014 Mild aortic stenosis [I35.0] 11/12/2015 Obesity (BMI 35.0-39.9 without comorbidity) [E6*11/12/2015 Anxiety and depression [F41.9, F32.A] 08/11/2017 Encounter Status:Closed by MICHELLE ARZATE on 05/27/21 [facility] CNOVon 05-14-2021 CNOV Office Visit (AGJOANNAM ) -- BRANDON MURO ([id number]) 1945 F Date Time Provider Department 05/14/21 1:20 PM PILAR FERRER During your visit today, we recorded the following information about you: Temperature Pulse Respiration Blood pressure 97.6 degrees 84/minute 18/minute 128/76 Weight Height 93.4 kg 1.575 m Pilar Ferrer APRN.PROGRAM ADMINISTRATOR 05/14/2021 2:01 PM Addendum BONE MINERAL DENSITY PATIENT INSTRUCTIONS Bone mineral density testing measures the amount of calcium in certain parts of your bones. This information determines how strong your bones are. The test is used to detect osteoporosis, a disease in which the bone's mineral content and density are low, increasing a person's risk of fractures. The lumbar spine (lower back) and the hip are the skeletal sites usually examined. For the test, remember that: 1. You cannot take this test if you are . 2. Eat a normal diet on the day of the test. 3. Take your medications as you normally would. 4. DO NOT take calcium supplements (such as Tums) for 24 hours before the test. 5. On the day of the test, leave valuables (jewelry or credit cards) at home. 6. The test should be performed prior to oral, rectal or IV contrast studies, or at least 7 days after any of these studies. For the test, you may be asked to wear a hospital gown. You will lie on your back, on a padded table, in a comfortable position. Generally, you can resume your usual activities immediately. ASSESSMENT/PLAN: 1. Medicare annual wellness visit, subsequent - ICD9: V70.0, ICD10: Z00.00 (primary diagnosis) - Dietary recommendations: increase plant-based foods, reduce processed foods and red meat, limit salt, alcohol, sugary beverages, and animal fats - Recommend calcium intake with supplements or by diet (1000 mg/day for under 50, 9251-7697 mg/day for 50+) - Exercise recommendations: 150 mins/week of moderate cardiovascular activity or 75 mins/week of vigorous activity, plus 2 times/week strength training - Discussed need and benefit for weight loss. BMI 37.68 kg/(m2) - Check CBC, CMP, TSH, fasting glucose and fasting lipid panel - Colorectal cancer screening reviewed and recommended - refuses at this time colonoscopy and cologuard - Mammogram ordered - exam recommended every 2 years - Bone mineral density ordered for age 65+ or postmenopausal < 65 at increased risk - Patient was counseled [id number] by myself (the billing provider) for the following immunizations and vaccine components, including side effects: COVID-19, Influenza and Shingrix. Patient consents for immunization and understands risks and benefits. A VIS sheet on each immunization was given to the patient. - Depression screening tool completed and reviewed. Based on score and interview, patient is already diagnosed with depression. Screening tool discussed with patient, and I recommended no further intervention at this time. - Recommend one-time screen for Hep C for ages 18-79 - Follow up for annual exam in one year 2. Primary hypertension - ICD9: 401.9, ICD10: I10 - good control - Continue current medication(s) - Encouraged dietary sodium restriction/DASH diet - Recommended regular aerobic exercise. - Recommend home blood pressure monitoring, to bring results in on next visit - Discussed need and benefit for weight loss. - Reviewed risks of HTN and principles of treatment - Goal of BP <130/80 - Recommended no refined sugar, low refined starch, healthy oil intake (olive oil), healthy protein (fish) along the lines of the Mediterranean diet. - COMP METABOLIC PANEL - CBC 3. Mixed hyperlipidemia - ICD9: 272.2, ICD10: E78.2 - to be determined upon return of lab results - Continue current medication. - Encouraged following a low fat, low cholesterol diet. - Discussed the benefits of regular aerobic exercise and weight loss. - Check fasting lipid panel - Encouraged following a low carbohydrate, healthy oil intake diet. - LIPID PANEL BASIC 4. Anxiety and depression - ICD9: 300.00, 311, ICD10: F41.9, F32.A Chronic, stable - continue effexor as ordered - VENLAFAXINE 75 MG TABLET 5. Stage 3 chronic kidney disease, unspecified whether stage 3a or 3b CKD (HCC) - ICD9: 585.3, ICD10: N18.30 - Chronic stable 6. Post-menopausal - ICD9: V49.81, ICD10: Z78.0 - DXA-AXIAL SKELETON 7. Vitamin D deficiency - ICD9: 268.9, ICD10: E55.9 - VITAMIN D 25 HYDROXY 8. Encounter for screening mammogram for malignant neoplasm of breast - ICD9: V76.12, ICD10: Z12.31 - ROSA ISELA SCREENING 9. Screening for thyroid disorder - ICD9: V77.0, ICD10: Z13.29 - TSH BLD 10. Encounter for hepatitis C screening test for low risk patient - ICD9: V73.89, ICD10: Z11.59 - HEP C AB IA W/CONF SCRN 11. Allergic rhinitis, unspecified seasonality, unspecified rodrigo (more content not included)... [facility] OBSOLETEon 05-14-2021 OBSOLETE Refill (AGINTMLW) -- DARRINBRANDON Prince ([id number]) 1945 F Date Time Provider Department 05/14/21 PILAR FERRER AGINTMLBruna During your visit today, we recorded the following information about you: Danielito Montenegro MA 05/14/2021 5:11 PM Signed Pt called we didn't fill her script for the Omprazole today Patient phones requesting refills as follows: Pending Prescriptions Disp Refills OMEPRAZOLE 40 MG CAPSULE,DELAYED RELEASE 90 capsule 1 Sig: Take 1 capsule by mouth once daily. MELISSA: No Please review and advise. Danielito Montenegro MA Allergies As of Date: 05/14/2021 Noted Allergy Reaction MOLD 03/03/2012 16 - Unknown PITAVASTATIN 11/13/2012 14 - Other: See Comments Comments: Drug induced lupus. SULFA (SULFONAMIDE ANTIBIOTICS) 03/03/2012 16 - Unknown Comments: Took for bladder infection and infection became worse. TAPE (ADHESIVE TAPE (ROSINS)) 08/20/2014 2 - Rash VICODIN (HYDROCODONE-ACETAMINOPHE* 08/20/2014 8 - GI Upset Date Reviewed: 05/14/2021 Reviewed by: Pilar Ferrer, BIOD[employer]EL PLANT MANAGER.PROGRAM ADMINISTRATOR - Fully Assessed Reason for Visit: Refill Request [94] Visit Diagnosis:Gastroesophageal reflux disease without esophagitis [K21.9] Order(s):omeprazole (PRILOSEC) 40 mg capsuleTake 1 capsule by mouth once daily.Disp: 90 capsuleRfl: 1 Prescriptions as of 05/14/2021 - losartan (COZAAR) 100 mg tablet Take 1 tablet by mouth once daily. - amLODIPine (NORVASC) 5 mg tablet Take 1 tablet by mouth once daily. - hydroCHLOROthiazide (HYDRODIURIL, ESIDRIX) 12.5 mg tablet Take 1 tablet by mouth once daily. - cetirizine (ZYRTEC) 10 mg tablet Take 1 tablet by mouth once daily. - venlafaxine (EFFEXOR) 75 mg tablet Take 1 tablet by mouth twice daily. - omeprazole (PRILOSEC) 40 mg capsule Take 1 capsule by mouth once daily. - hydrOXYchloroQUINE (PLAQUENIL) 200 mg tablet TAKE 1 AND 1 2 (ONE AND ONE HALF) TABLETS BY MOUTH ONCE DAILY - albuterol HFA (PROAIR HFA) 90 mcg/actuation inhaler Inhale 2 Puffs as instructed every 6 hours as needed. Problem List As Of Date 05/14/2021 Noted Resolved Chronic cough [R05.3] 03/03/2012 Allergic rhinitis [J30.9] 03/03/2012 Hyperlipidemia [E78.5] 08/20/2014 Hypertension [I10] 08/20/2014 Abnormal ECG [R94.31] 11/15/2014 Mild aortic stenosis [I35.0] 11/12/2015 Obesity (BMI 35.0-39.9 without comorbidity) [E6*11/12/2015 Anxiety and depression [F41.9, F32.A] 08/11/2017 Prescriptions ordered this encounter Disp Refills Start End OMEPRAZOLE 40 MG CAPSULE,DELAYED REL* 90 c* 1 05/14/2021 Route: ORAL Sig: Take 1 capsule by mouth once daily. Medications Discontinued During This Encounter Prescriptions - Omeprazole 40 mg capsule (Discontinued) TAKE 1 CAPSULE EVERY DAY Encounter Status:Closed by PILAR FERRER on 05/14/21 [facility] OBSOLETEon 04-24-2021 OBSOLETE Refill (AGINTMLW) -- BRANDON MURO ([id number]) 1945 F Date Time Provider Department 04/24/21 PILAR FERRER AGINTMLW During your visit today, we recorded the following information about you: Michelle Arzate MA 04/24/2021 12:02 PM Addendum Pharmacy requesting refills as follows: Last Office Visit 02/07/20. Last Refill 09/02/20. Pending Prescriptions Disp Refills LOSARTAN 100 MG TABLET 90 tablet 0 Sig: Take 1 tablet by mouth once daily MELISSA: Yes Please review and advise. JUVENCIO Loera MA 04/24/2021 12:04 PM Signed Left patient a message informing her to schedule an appointment. Michelle Arzate MA Allergies As of Date: 04/24/2021 Noted Allergy Reaction MOLD 03/03/2012 16 - Unknown PITAVASTATIN 11/13/2012 14 - Other: See Comments Comments: Drug induced lupus. SULFA (SULFONAMIDE ANTIBIOTICS) 03/03/2012 16 - Unknown Comments: Took for bladder infection and infection became worse. TAPE (ADHESIVE TAPE (ROSINS)) 08/20/2014 2 - Rash VICODIN (HYDROCODONE-ACETAMINOPHE* 08/20/2014 8 - GI Upset Date Reviewed: 03/21/2019 Reviewed by: Pilar Jade ([facility]) MARY LOU Ferrer - Fully Assessed Reason for Visit: Refill Request [94] Visit Diagnosis:Essential hypertension [I10] Order(s):losartan (COZAAR) 100 mg tabletTake 1 tablet by mouth once dailyDisp: 30 tabletRfl: 0 Prescriptions as of 04/24/2021 - losartan (COZAAR) 100 mg tablet Take 1 tablet by mouth once daily - amLODIPine (NORVASC) 5 mg tablet Take 1 tablet by mouth once daily - hydroCHLOROthiazide (HYDRODIURIL, ESIDRIX) 12.5 mg tablet Take 1 tablet by mouth once daily - cetirizine (ZYRTEC) 10 mg tablet TAKE 1 TABLET EVERY DAY - hydrOXYchloroQUINE (PLAQUENIL) 200 mg tablet TAKE 1 AND 1 2 (ONE AND ONE HALF) TABLETS BY MOUTH ONCE DAILY - venlafaxine (EFFEXOR) 75 mg tablet Take 1 tablet by mouth twice daily. - mometasone (ELOCON) 0.1 % cream Apply 1 application to affected area once daily. - benzonatate (TESSALON PERLES) 100 mg capsule Take 1 capsule by mouth three times daily as needed for Cough. - Omeprazole 40 mg capsule TAKE 1 CAPSULE EVERY DAY - albuterol HFA (PROAIR HFA) 90 mcg/actuation inhaler Inhale 2 Puffs as instructed every 6 hours as needed. - busPIRone (BUSPAR) 10 mg tablet Take 1 tablet by mouth three times daily. - fluticasone (FLONASE) 50 mcg/actuation nasal spray Take one spray bid Problem List As Of Date 04/24/2021 Noted Resolved Chronic cough [R05.3] 03/03/2012 Allergic rhinitis [J30.9] 03/03/2012 Hyperlipidemia [E78.5] 08/20/2014 Hypertension [I10] 08/20/2014 Abnormal ECG [R94.31] 11/15/2014 Mild aortic stenosis [I35.0] 11/12/2015 Obesity (BMI 35.0-39.9 without comorbidity) [E6*11/12/2015 Anxiety and depression [F41.9, F32.A] 08/11/2017 Prescriptions ordered this encounter Disp Refills Start End LOSARTAN 100 MG TABLET 30 t* 0 04/24/2021 Route: ORAL Sig: Take 1 tablet by mouth once daily Medications Discontinued During This Encounter Prescriptions - losartan (COZAAR) 100 mg tablet (Discontinued) Take 1 tablet by mouth once daily Encounter Status:Closed by PILAR FERRER on 04/24/21 [facility] OBSOLETEon 02-03-2021 OBSOLETE Refill (AGINTMLW) -- BRANDON MURO ([id number]) 1945 F Date Time Provider Department 02/03/21 CAT ZAVALA AGINTMLW During your visit today, we recorded the following information about you: Kylie Lee MA 02/03/2021 2:38 PM Signed pharmacy electronically requesting refills as follows: Last seen 02/06/21 . Last refill 10/24/20 . Pending Prescriptions Disp Refills AMLODIPINE 5 MG TABLET 90 tablet 0 Sig: Take 1 tablet by mouth once daily MELISSA: Yes Please review and advise. Kylie Lee MA Allergies As of Date: 02/03/2021 Noted Allergy Reaction MOLD 03/03/2012 16 - Unknown PITAVASTATIN 11/13/2012 14 - Other: See Comments Comments: Drug induced lupus. SULFA (SULFONAMIDE ANTIBIOTICS) 03/03/2012 16 - Unknown Comments: Took for bladder infection and infection became worse. TAPE (ADHESIVE TAPE (ROSINS)) 08/20/2014 2 - Rash VICODIN (HYDROCODONE-ACETAMINOPHE* 08/20/2014 8 - GI Upset Date Reviewed: 03/21/2019 Reviewed by: Pilar Jade ([facility]) MARY LOU Ferrer - Fully Assessed Reason for Visit: Refill Request [94] Visit Diagnosis:Essential hypertension [I10] Order(s):amLODIPine (NORVASC) 5 mg tabletTake 1 tablet by mouth once dailyDisp: 90 tabletRfl: 0 Prescriptions as of 02/03/2021 - amLODIPine (NORVASC) 5 mg tablet Take 1 tablet by mouth once daily - hydroCHLOROthiazide (HYDRODIURIL, ESIDRIX) 12.5 mg tablet Take 1 tablet by mouth once daily - losartan (COZAAR) 100 mg tablet Take 1 tablet by mouth once daily - cetirizine (ZYRTEC) 10 mg tablet TAKE 1 TABLET EVERY DAY - hydrOXYchloroQUINE (PLAQUENIL) 200 mg tablet TAKE 1 AND 1 2 (ONE AND ONE HALF) TABLETS BY MOUTH ONCE DAILY - venlafaxine (EFFEXOR) 75 mg tablet Take 1 tablet by mouth twice daily. - mometasone (ELOCON) 0.1 % cream Apply 1 application to affected area once daily. - benzonatate (TESSALON PERLES) 100 mg capsule Take 1 capsule by mouth three times daily as needed for Cough. - Omeprazole 40 mg capsule TAKE 1 CAPSULE EVERY DAY - albuterol HFA (PROAIR HFA) 90 mcg/actuation inhaler Inhale 2 Puffs as instructed every 6 hours as needed. - busPIRone (BUSPAR) 10 mg tablet Take 1 tablet by mouth three times daily. - fluticasone (FLONASE) 50 mcg/actuation nasal spray Take one spray bid Problem List As Of Date 02/03/2021 Noted Resolved Chronic cough [R05] 03/03/2012 Allergic rhinitis [J30.9] 03/03/2012 Hyperlipidemia [E78.5] 08/20/2014 Hypertension [I10] 08/20/2014 Abnormal ECG [R94.31] 11/15/2014 Mild aortic stenosis [I35.0] 11/12/2015 Obesity (BMI 35.0-39.9 without comorbidity) [E6*11/12/2015 Anxiety and depression [F41.9, F32.9] 08/11/2017 Prescriptions ordered this encounter Disp Refills Start End AMLODIPINE 5 MG TABLET 90 t* 0 02/03/2021 Route: ORAL Sig: Take 1 tablet by mouth once daily Medications Discontinued During This Encounter Prescriptions - amLODIPine (NORVASC) 5 mg tablet (Discontinued) Take 1 tablet by mouth once daily Encounter Status:Closed by CAT ZAVALA on 02/03/21 [facility] Established Visit (Pain Medi cine)on 11-11-2020 Established Visit (Pain Medicine) Diagnoses/Problems Fibromyalgia (729.1) (M79.7) Neurogenic claudication due to lumbar spinal stenosis (724.03) (M48.062) Lumbosacral spondylosis without myelopathy (721.3) (M47.817) Muscle spasm (728.85) (M62.838) Orders Muscle spasm Start: Baclofen 10 MG Oral Tablet; TAKE 1 TABLET Twice daily PRN Patient Discussion/Summary I discussed with the patient the likely etiology of her symptoms, as well as potential treatment options I addressed options with her and we will stop the Zonegran since she can tolerate it and I will write her for baclofen at a dose of 10 mg twice a day as needed. If her lumbar radicular pain persists we will consider a lumbar MRI. I will see her for follow-up in 2 months or sooner if needed. Chief Complaint Pain F/U ZONEGRAN-SHE STOPPED DUE TO EXTREME DIZZINESS WITH BALANCE ISSUES, SORETHROAT, INSOMNIA, SHE IS NOW JUST TAKING TYLENOL , ONGOING DISCOMFORT IN LOWER BACK, LEGS PAINS, SHARP PAINS IN HANDS RANDOM, PAIN BETWEEN HER SHOULDER BLADES, PAIN TO THE BACK OF HER HEAD SHE STATES IT JUST HURTS, SCORE 4/10 This is a 75-year-old female here for a follow-up appointment for chief complaint of low back and leg, neck, hand, and mid back pain. She reports that since her last visit her symptoms have been persistent but unchanged. She reports the Zonegran had little effect on her pain and caused a lot of dizziness so she had to stop it. She reports the worst symptoms are in her lower back and legs. She will get a lot of spasms in the legs. She asked about trying a muscle relaxer. She denies new neurologic symptoms or issues with bladder or bowel control. The patient's past medical, social, and family history along with medications and allergies are available and were reviewed. Adult Risk Screening Advance directives: Living Will: Living will on file. Healthcare POA: Health care proxy on file. Domestic Violence Screen: Does not feel threatened or abused physically, emotionally or sexually. Do you feel UNSAFE? The patient feels safe in the home. Depression/Suicide Screening: During the past 2 weeks, the patient has not felt down, depressed or hopeless. During the past 2 weeks, the patient has not felt little interest or pleasure in doing things. She does not have a risk of suicide. She has not had thoughts of harming others. Reference Documentation See scanned note REVIEW OF SYSTEMS/ OPIOID RISK TOOL. History of Present Illness On a scale of 0 to 10, the patient rates the pain at 4. Pain Location: Low Back Pain, Upper Back Pain and HANDS, LEGS. Pain Quality: Sharp and HURTS. Timing/Duration: Constant. Exacerbating Factors: rest, motion, repetitive motion, sitting, standing, walking and ADL. Alleviating Factors: Medications. 24 Hour Behavior: Symptoms are the same in the am. Symptoms are the same as the day progresses. Symptoms are the same in the pm. Symptoms are the same when lying down. Active Problems Cervical spinal stenosis (723.0) (M48.02) Chronic neuropathic pain (729.2,338.29) (M79.2,G89.29) Fibromyalgia (729.1) (M79.7) Lumbosacral spondylosis without myelopathy (721.3) (M47.817) Thoracic spondylosis (721.2) (M47.814) Past Medical History History of arthritis (V13.4) (Z87.39) History of chronic kidney disease (V13.09) (Z87.448) History of depression (V11.8) (Z86.59) History of gastroesophageal reflux (GERD) (V12.79) (Z87.19) History of glaucoma (V12.49) (Z86.69) History of hypertension (V12.59) (Z86.79) History of Lupus (710.0) (M32.9) Surgical History History of Hip surgery Right 2010 History of Knee surgery Left 2017 Social History Denies alcohol consumption (V49.89) (Z78.9) Former smoker (V15.82) (Z87.891) Allergies Dust Mite Extract SOLN Recorded By: Anastasiia Ordonez; 08/27/2020 1:02:38 PM Tape 1 X5YD TAPE Recorded By: Anastasiia Ordonez; 08/27/2020 1:02:38 PM Current Meds Medication NameInstruction amLODIPine Besylate 5 MG Oral Tablet hydroCHLOROthiazide 12.5 MG Oral Tablet Hydroxychloroquine Sulfate [id number] mg daily Losartan Potassium 100 MG Oral Tablet Vitamin B 12 [id number] mcg daily Vitamin C [id number] mg daily Vitamin D-3 CAPS50 mg daily Zinc TABS5 mg daily Vitals Vital Signs Recorded: [id number] 02:00PM Xskbhqehpja86.6 F Heart Rate82 Nhwdhwnnuwa07 Zkzlpzfr833 Hkvcmvpxt18 Height5 ft 1 in Wpfbho877 lb BMI Xwmdkvaygq19.68 BSA Calculated1.93 Physical Exam Constitutional: no acute distress, well appearing and well nourished. Patient appears stated age. Eyes: conjunctiva anicteric and eye lids are without obvious rash or drooping. Pupils are symmetric Ears, Nose, Mouth, and Throat: external ears and nose appear to be without deformity or rash. No lesions or masses noted. Hearing is grossly intact Head and Face: examination of the head and face revealed no abnormalities Respiratory: no gasping or shortness of breath noted, no use of accessory muscles noted Cardiovascular: examination for e (more content not included)... Normal [facility] OBSOLETEon 10-21-2020 OBSOLETE Refill (AGINTMLW) -- BRANDON MURO ([id number]) 1945 F Date Time Provider Department 10/21/20 PILAR FERRER (BIODIESEL PLANT MANAGER, PROGRAM ADMINISTRATOR)AGINTMLW During your visit today, we recorded the following information about you: Danielito Montenegro CMA 10/21/2020 11:03 AM Signed Last OV 8/12/20 Labs 02/07/20 Pharmacy calls in requesting the following refill(s): Pending Prescriptions Disp Refills AMLODIPINE 5 MG TABLET 90 tablet 0 Sig: Take 1 tablet by mouth once daily MELISSA: Yes Danielito Montenegro CMA Allergies As of Date: 10/21/2020 Noted Allergy Reaction MOLD 03/03/2012 16 - Unknown PITAVASTATIN 11/13/2012 14 - Other: See Comments Comments: Drug induced lupus. SULFA (SULFONAMIDE ANTIBIOTICS) 03/03/2012 16 - Unknown Comments: Took for bladder infection and infection became worse. TAPE (ADHESIVE TAPE (ROSINS)) 08/20/2014 2 - Rash VICODIN (HYDROCODONE-ACETAMINOPHE* 08/20/2014 8 - GI Upset Date Reviewed: 03/21/2019 Reviewed by: Pilar Jade ([facility]) MARY LOU Ferrer - Fully Assessed Reason for Visit: Refill Request [94] Visit Diagnosis:Essential hypertension [I10] Order(s):amLODIPine (NORVASC) 5 mg tabletTake 1 tablet by mouth once dailyDisp: 90 tabletRfl: 0 Prescriptions as of 10/21/2020 Sig: AMLODIPINE 5 MG TABLET Take 1 tablet by mouth once d* LOSARTAN 100 MG TABLET Take 1 tablet by mouth once d* CETIRIZINE 10 MG TABLET TAKE 1 TABLET EVERY DAY HYDROXYCHLOROQUINE 200 MG TAB* TAKE 1 AND 1 2 (ONE AND ONE HALF)* HYDROCHLOROTHIAZIDE 12.5 MG T* Take 1 tablet by mouth once d* VENLAFAXINE 75 MG TABLET Take 1 tablet by mouth twice * MOMETASONE 0.1 % TOPICAL CREAM Apply 1 application to affect* BENZONATATE 100 MG CAPSULE Take 1 capsule by mouth three* OMEPRAZOLE 40 MG CAPSULE,RUBINA* TAKE 1 CAPSULE EVERY DAY ALBUTEROL SULFATE HFA 90 MCG/* Inhale 2 Puffs as instructed * BUSPIRONE 10 MG TABLET Take 1 tablet by mouth three * FLUTICASONE PROPIONATE 50 MCG* Take one spray bid Problem List As Of Date 10/21/2020 Noted Resolved Chronic cough [R05] 03/03/2012 Allergic rhinitis [J30.9] 03/03/2012 Hyperlipidemia [E78.5] 08/20/2014 Hypertension [I10] 08/20/2014 Abnormal ECG [R94.31] 11/15/2014 Mild aortic stenosis [I35.0] 11/12/2015 Obesity (BMI 35.0-39.9 without comorbidity) [E6*11/12/2015 Anxiety and depression [F41.9, F32.9] 08/11/2017 Prescriptions ordered this encounter Disp Refills Start End AMLODIPINE 5 MG TABLET 90 t* 0 10/21/2020 Route: ORAL Sig: Take 1 tablet by mouth once daily Medications Discontinued During This Encounter Prescriptions - amLODIPine (NORVASC) 5 mg tablet (Discontinued) Take 1 tablet by mouth once daily Encounter Status:Closed by CAT ZAVALA MD on 10/21/20 [facility] OBSOLETEon 10-18-2020 OBSOLETE Refill (AGINTMLW) -- BRANDON MURO ([id number]) 1945 F Date Time Provider Department 10/18/20 PILAR FERRER ([employer] MANAGER, PROGRAM ADMINISTRATOR)AGINTMLW During your visit today, we recorded the following information about you: Danielito Montenegro CMA 10/21/2020 10:09 AM Signed Last OV 02/07/20 labs 02/07/20 Pharmacy calls in requesting the following refill(s): Pending Prescriptions Disp Refills HYDROCHLOROTHIAZIDE 12.5 MG TABLET 90 tablet 0 Sig: Take 1 tablet by mouth once daily MELISSA: Yes Danielito Montenegro CMA Allergies As of Date: 10/18/2020 Noted Allergy Reaction MOLD 03/03/2012 16 - Unknown PITAVASTATIN 11/13/2012 14 - Other: See Comments Comments: Drug induced lupus. SULFA (SULFONAMIDE ANTIBIOTICS) 03/03/2012 16 - Unknown Comments: Took for bladder infection and infection became worse. TAPE (ADHESIVE TAPE (ROSINS)) 08/20/2014 2 - Rash VICODIN (HYDROCODONE-ACETAMINOPHE* 08/20/2014 8 - GI Upset Date Reviewed: 03/21/2019 Reviewed by: Pilar Jade ([facility]) MARY LOU Ferrer - Fully Assessed Reason for Visit: Refill Request [94] Visit Diagnosis:Essential hypertension [I10] Order(s):hydroCHLOROthiazi de (HYDRODIURIL, ESIDRIX) 12.5 mg tabletTake 1 tablet by mouth once dailyDisp: 90 tabletRfl: 0 Prescriptions as of 10/18/2020 Sig: HYDROCHLOROTHIAZIDE 12.5 MG T* Take 1 tablet by mouth once d* X AMLODIPINE 5 MG TABLET Take 1 tablet by mouth once d* LOSARTAN 100 MG TABLET Take 1 tablet by mouth once d* CETIRIZINE 10 MG TABLET TAKE 1 TABLET EVERY DAY HYDROXYCHLOROQUINE 200 MG TAB* TAKE 1 AND 1 2 (ONE AND ONE HALF)* VENLAFAXINE 75 MG TABLET Take 1 tablet by mouth twice * MOMETASONE 0.1 % TOPICAL CREAM Apply 1 application to affect* BENZONATATE 100 MG CAPSULE Take 1 capsule by mouth three* OMEPRAZOLE 40 MG CAPSULE,RUBINA* TAKE 1 CAPSULE EVERY DAY ALBUTEROL SULFATE HFA 90 MCG/* Inhale 2 Puffs as instructed * BUSPIRONE 10 MG TABLET Take 1 tablet by mouth three * FLUTICASONE PROPIONATE 50 MCG* Take one spray bid Problem List As Of Date 10/18/2020 Noted Resolved Chronic cough [R05] 03/03/2012 Allergic rhinitis [J30.9] 03/03/2012 Hyperlipidemia [E78.5] 08/20/2014 Hypertension [I10] 08/20/2014 Abnormal ECG [R94.31] 11/15/2014 Mild aortic stenosis [I35.0] 11/12/2015 Obesity (BMI 35.0-39.9 without comorbidity) [E6*11/12/2015 Anxiety and depression [F41.9, F32.9] 08/11/2017 Prescriptions ordered this encounter Disp Refills Start End HYDROCHLOROTHIAZIDE 12.5 MG TABLET 90 t* 0 10/21/2020 Route: ORAL Sig: Take 1 tablet by mouth once daily Medications Discontinued During This Encounter Prescriptions - hydroCHLOROthiazide (HYDRODIURIL, ESIDRIX) 12.5 mg tablet (Discontinued) Take 1 tablet by mouth once daily. Encounter Status:Closed by CAT ZAVALA MD on 10/21/20 [facility] OBSOLETEon 09-15-2020 OBSOLETE Refill (AGINTMLW) -- DARRINBRANDON ([id number]) 1945 F Date Time Provider Department 09/15/20 PILAR FERRER ([employer], [facility])AGINTMLW During your visit today, we recorded the following information about you: Kylie Lee CMA 09/16/2020 8:09 AM Signed pharmacy electronically requesting refills as follows: Last seen 02/07/20 . Last refill 07/28/20 . Pending Prescriptions Disp Refills AMLODIPINE 5 MG TABLET 30 tablet 0 Sig: Take 1 tablet by mouth once daily MELISSA: Yes Please review and advise. Kylie Lee CMA Allergies As of Date: 09/15/2020 Noted Allergy Reaction MOLD 03/03/2012 16 - Unknown PITAVASTATIN 11/13/2012 14 - Other: See Comments Comments: Drug induced lupus. SULFA (SULFONAMIDE ANTIBIOTICS) 03/03/2012 16 - Unknown Comments: Took for bladder infection and infection became worse. TAPE (ADHESIVE TAPE (ROSINS)) 08/20/2014 2 - Rash VICODIN (HYDROCODONE-ACETAMINOPHE* 08/20/2014 8 - GI Upset Date Reviewed: 03/21/2019 Reviewed by: Pilar Jade ([facility]) MARY LOU Ferrer - Fully Assessed Reason for Visit: Refill Request [94] Visit Diagnosis:Essential hypertension [I10] Order(s):amLODIPine (NORVASC) 5 mg tabletTake 1 tablet by mouth once dailyDisp: 30 tabletRfl: 0 Prescriptions as of 09/15/2020 Sig: AMLODIPINE 5 MG TABLET Take 1 tablet by mouth once d* LOSARTAN 100 MG TABLET Take 1 tablet by mouth once d* CETIRIZINE 10 MG TABLET TAKE 1 TABLET EVERY DAY HYDROXYCHLOROQUINE 200 MG TAB* TAKE 1 AND 1 2 (ONE AND ONE HALF)* HYDROCHLOROTHIAZIDE 12.5 MG T* Take 1 tablet by mouth once d* VENLAFAXINE 75 MG TABLET Take 1 tablet by mouth twice * MOMETASONE 0.1 % TOPICAL CREAM Apply 1 application to affect* BENZONATATE 100 MG CAPSULE Take 1 capsule by mouth three* OMEPRAZOLE 40 MG CAPSULE,RUBINA* TAKE 1 CAPSULE EVERY DAY ALBUTEROL SULFATE HFA 90 MCG/* Inhale 2 Puffs as instructed * BUSPIRONE 10 MG TABLET Take 1 tablet by mouth three * FLUTICASONE PROPIONATE 50 MCG* Take one spray bid Problem List As Of Date 09/15/2020 Noted Resolved Chronic cough [R05] 03/03/2012 Allergic rhinitis [J30.9] 03/03/2012 Hyperlipidemia [E78.5] 08/20/2014 Hypertension [I10] 08/20/2014 Abnormal ECG [R94.31] 11/15/2014 Mild aortic stenosis [I35.0] 11/12/2015 Obesity (BMI 35.0-39.9 without comorbidity) [E6*11/12/2015 Anxiety and depression [F41.9, F32.9] 08/11/2017 Prescriptions ordered this encounter Disp Refills Start End AMLODIPINE 5 MG TABLET 30 t* 0 09/16/2020 Route: ORAL Sig: Take 1 tablet by mouth once daily Medications Discontinued During This Encounter Prescriptions - amLODIPine (NORVASC) 5 mg tablet (Discontinued) Take 1 tablet by mouth once daily Encounter Status:Closed by PILAR FERRER CNP on 09/16/20 Normal [facility] Established Visit (Pain Medi cine)on 09-09-2020 Established Visit (Pain Medicine) Diagnoses/Problems Fibromyalgia (729.1) (M79.7) Chronic neuropathic pain (729.2,338.29) (M79.2,G89.29) Orders Fibromyalgia Start: Zonisamide 25 MG Oral Capsule; start 1 cap PO QHS, increase by 1 cap Qwk till dose is 4 caps QHS Patient Discussion/Summary I discussed with the patient the likely etiology of her symptoms, as well as potential treatment options I reviewed her cervical MRI which showed a small herniation at C4-C5 all with a questionable small syrinx at C6 7 that was not apparent on the axial images. Her thoracic and lumbar x-rays were notable for multilevel spondylosis and disc disease. We discussed further options and for now I will start her on Zonegran to be titrated 200 mg at bedtime. If she tolerates it well we could consider adding in daytime dose later on. With regard to further workup we discussed a lumbar MRI and/or checking EMGs but she would like to try the medication first and since her examination is benign I think that is reasonable. I will see her for follow-up in 8 weeks or sooner if needed. Chief Complaint FUV xrays, MRI results reports having pain all over same as before states My muscles hurt rates 2/10 today This is a 75-year-old female here for a follow-up appointment for chief plan of multifocal pain. She reports that since her last visit her symptoms of been persistent. She states that she will get muscle pain in the hands mid back and legs. She denies new neurologic symptoms or issues with bladder or bowel control she has noticed some tingling in the hands at night with numbness but reports that that issue is minor. She would be open to trying a low dose of the new medication. The patient's past medical, social, and family history along with medications and allergies are available and were reviewed. Adult Risk Screening Advance directives: Living Will: Living will on file. Healthcare POA: Health care proxy on file. Domestic Violence Screen: Does not feel threatened or abused physically, emotionally or sexually. Do you feel UNSAFE? The patient feels safe in the home. Depression/Suicide Screening: She does not have a risk of suicide. She has not had thoughts of harming others. Reference Documentation See scanned note Review of systems . History of Present Illness On a scale of 0 to 10, the patient rates the pain at 2. Pain Location: all over. Pain Quality: Aching and Dull. Timing/Duration: Constant and > 12 weeks duration. Review of Systems All 13 systems were reviewed and are within normal levels except as noted below or per HPI. Positive and pertinent negative responses are noted below or in the HPI. Active Problems Cervical spinal stenosis (723.0) (M48.02) Fibromyalgia (729.1) (M79.7) Lumbosacral spondylosis without myelopathy (721.3) (M47.817) Thoracic spondylosis (721.2) (M47.814) Past Medical History History of arthritis (V13.4) (Z87.39) History of chronic kidney disease (V13.09) (Z87.448) History of depression (V11.8) (Z86.59) History of gastroesophageal reflux (GERD) (V12.79) (Z87.19) History of glaucoma (V12.49) (Z86.69) History of hypertension (V12.59) (Z86.79) History of Lupus (710.0) (M32.9) Surgical History History of Hip surgery Right 2010 History of Knee surgery Left 2017 Social History Denies alcohol consumption (V49.89) (Z78.9) Former smoker (V15.82) (Z87.891) Allergies Dust Mite Extract SOLN Recorded By: Anastasiia Ordonez; 08/27/2020 1:02:38 PM Tape 1 X5YD TAPE Recorded By: Anastasiia Ordonez; 08/27/2020 1:02:38 PM Current Meds Medication NameInstruction amLODIPine Besylate 5 MG Oral Tablet hydroCHLOROthiazide 12.5 MG Oral Tablet Hydroxychloroquine Sulfate [id number] mg daily Losartan Potassium 100 MG Oral Tablet Vitamin B 12 [id number] mcg daily Vitamin C [id number] mg daily Vitamin D-3 CAPS50 mg daily Zinc TABS5 mg daily Vitals Vital Signs Recorded: 09Sep2020 02:55PM Xrewweitzvr59 F Heart Rate81 Jwyxuxkdndx02 Xinadfeo139 Fptqxkeyo05 Height5 ft 1 in Tntsgy040 lb BMI Xaveogyaqc30.36 BSA Calculated1.9 Physical Exam Constitutional: no acute distress, well appearing and well nourished. Patient appears stated age. Eyes: conjunctiva anicteric and eye lids are without obvious rash or drooping. Pupils are symmetric Ears, Nose, Mouth, and Throat: external ears and nose appear to be without deformity or rash. No lesions or masses noted. Hearing is grossly intact Head and Face: examination of the head and face revealed no abnormalities Respiratory: no gasping or shortness of breath noted, no use of accessory muscles noted Cardiovascular: examination for edema is normal, examination of lower extremities for varicosities is normal, examination for varicosities in the upper extremities is normal Abdomen: non-tender, no masses Skin: no rashes or open lesions/ulcers identified on skin. No induration/tightening noted with palpation of skin Psychiatric: alert, orientation to person, place, and rissa (more content not included)... Normal [facility] OBSOLETEon 09-01-2020 OBSOLETE Refill (AGINTMLW) -- DARRINBRANDON ([id number]) 1945 F Date Time Provider Department 09/01/20 PILAR FERRER ([employer], [facility])AGINTMLW During your visit today, we recorded the following information about you: Kylie Lee CMA 09/02/2020 8:22 AM Signed pharmacy electronically requesting refills as follows: Last seen 02/07/20 . Last refill 02/07/20 . Pending Prescriptions Disp Refills LOSARTAN 100 MG TABLET 90 tablet 0 Sig: Take 1 tablet by mouth once daily MELISSA: Yes Please review and advise. Kylie Lee CMA Allergies As of Date: 09/01/2020 Noted Allergy Reaction MOLD 03/03/2012 16 - Unknown PITAVASTATIN 11/13/2012 14 - Other: See Comments Comments: Drug induced lupus. SULFA (SULFONAMIDE ANTIBIOTICS) 03/03/2012 16 - Unknown Comments: Took for bladder infection and infection became worse. TAPE (ADHESIVE TAPE (ROSINS)) 08/20/2014 2 - Rash VICODIN (HYDROCODONE-ACETAMINOPHE* 08/20/2014 8 - GI Upset Date Reviewed: 03/21/2019 Reviewed by: Pilar Jade ([facility]) MARY LOU Ferrer - Fully Assessed Reason for Visit: Refill Request [94] Visit Diagnosis:Essential hypertension [I10] Order(s):losartan (COZAAR) 100 mg tabletTake 1 tablet by mouth once dailyDisp: 90 tabletRfl: 0 Prescriptions as of 09/01/2020 Sig: LOSARTAN 100 MG TABLET Take 1 tablet by mouth once d* AMLODIPINE 5 MG TABLET Take 1 tablet by mouth once d* CETIRIZINE 10 MG TABLET TAKE 1 TABLET EVERY DAY HYDROXYCHLOROQUINE 200 MG TAB* TAKE 1 AND 1 2 (ONE AND ONE HALF)* HYDROCHLOROTHIAZIDE 12.5 MG T* Take 1 tablet by mouth once d* VENLAFAXINE 75 MG TABLET Take 1 tablet by mouth twice * MOMETASONE 0.1 % TOPICAL CREAM Apply 1 application to affect* BENZONATATE 100 MG CAPSULE Take 1 capsule by mouth three* OMEPRAZOLE 40 MG CAPSULE,RUBINA* TAKE 1 CAPSULE EVERY DAY ALBUTEROL SULFATE HFA 90 MCG/* Inhale 2 Puffs as instructed * BUSPIRONE 10 MG TABLET Take 1 tablet by mouth three * FLUTICASONE PROPIONATE 50 MCG* Take one spray bid Problem List As Of Date 09/01/2020 Noted Resolved Chronic cough [R05] 03/03/2012 Allergic rhinitis [J30.9] 03/03/2012 Hyperlipidemia [E78.5] 08/20/2014 Hypertension [I10] 08/20/2014 Abnormal ECG [R94.31] 11/15/2014 Mild aortic stenosis [I35.0] 11/12/2015 Obesity (BMI 35.0-39.9 without comorbidity) [E6*11/12/2015 Anxiety and depression [F41.9, F32.9] 08/11/2017 Prescriptions ordered this encounter Disp Refills Start End LOSARTAN 100 MG TABLET 90 t* 0 09/02/2020 Route: ORAL Sig: Take 1 tablet by mouth once daily Medications Discontinued During This Encounter Prescriptions - losartan (COZAAR) 100 mg tablet (Discontinued) Take 1 tablet by mouth once daily. Encounter Status:Closed by PILAR FERRER CNP on 09/02/20 Normal [facility] Initial Visit (Pain Medicine )on 08-27-2020 Initial Visit (Pain Medicine) Diagnoses/Problems Cervical spinal stenosis (723.0) (M48.02) Lumbosacral spondylosis without myelopathy (721.3) (M47.817) Thoracic spondylosis (721.2) (M47.814) Fibromyalgia (729.1) (M79.7) Orders MRI Cervical without Contrast; Status:Active; Requested for:02Sep2020; Reason: Unspecified for MRI Cervical without Contrast Radiologist to Determine Optimal Study : Y Does the patient have a Cochlear Implant, Pacemaker, Defibrilator, Pacing Wire, Brain Aneurysm Clip, Implanted Nerve or Bone Graft Simulator, Implanted Breast Tissue Reflow Operator, Glucose Monitor, or Neulasta Device? : No Is the patient or breast feeding? : No What are the patient's signs and symptoms? : pain Xray C Spine Complete Oblique/Flex/Ext; Status:Hold For - Scheduling; Requested for:27Aug2020; Radiologist to Determine Optimal Study : Y What are the patient's signs and symptoms? : pain Xray Lumbosacral Spine Complete (Bending); Status:Hold For - Scheduling; Requested for:27Aug2020; Radiologist to Determine Optimal Study : Y What are the patient's signs and symptoms? : pain Tobacco Use Screening; Status:Complete; Done: 27Aug2020 Xray Thoracic Spine 2 View AP + Lateral; Status:Hold For - Scheduling; Requested for:27Aug2020; Radiologist to Determine Optimal Study : Y What are the patient's signs and symptoms? : pain Patient Discussion/Summary I discussed with the patient the likely etiology of her symptoms, as well as potential treatment options I addressed options with her and given her persistent pain along with her somewhat atypical presentation for fibromyalgia we will check x-rays and if her cervical thoracic and lumbar spine to evaluate her anatomy. We will also check an MRI of her neck for stenosis which could also mimic these symptoms. I went over the pros and cons of this plan and she was in agreement. We discussed trialing different medications specifically Topamax or Zonegran but she declined. I will see her for follow-up after the MRI for repeat evaluation. Chief Complaint Pain NPV for generalized pain in base of skull, mid-upper back, low back, buttocks, hands, R ankle, L foot, karina knees. 08/07 today. Patient states she fell in 2019 face first in parking lot. Xrays were done at , no fractures. No recent injuries. Patient states she has had generalized pain for approx 15 years with the pain increasing over the past few years. States she uses Tylenol for pain with minimal relief. Has tried tramadol with 0% relief. Also tried gabapentin but states it made me crazy. No recent xrays. This is a 74-year-old female here for a chief complaint of multifocal pain. She reports she has had pain issues for a number of years. She has been diagnosed with lupus although she states that it is no longer active. She has also been diagnosed with fibromyalgia. She has pain from head to toe but reports the worst issues are in her thoracic and lumbar spine. She also has joint pain along with some weakness in her left leg although she attributes that to not being able to follow through with physical therapy after her knee replacement due to her 's health. She has tried gabapentin, Lyrica, tramadol, and steroids none of which have helped area she is currently on Effexor. She denies loss of bladder or bowel control. She went back to work after her passed and thinks that has helped both her pain issues as well as her mental status. She has end-stage arthritis of the right knee but is holding off on any replacement. She gets to Eufflexa injections which seemed to work well.She has had the left knee replaced along with the right hip area she denies additional neurologic symptoms or issues with bladder or bowel control. The patient's past medical, social, and family history along with medications and allergies are available and were reviewed. Adult Risk Screening Advance directives: Living Will: Living will on file. Healthcare POA: Health care proxy on file. Domestic Violence Screen: Does not feel threatened or abused physically, emotionally or sexually. Do you feel UNSAFE? The patient feels safe in the home. Depression/Suicide Screening: She does not have a risk of suicide. She has not had thoughts of harming others. Reference Documentation See scanned note Review of systems ORT . History of Present Illness On a scale of 0 to 10, the patient rates the pain at 2. Pain Location: Low Back Pain, generalized and mid back, head, knees, hands, R ankle, L foot. Pain Quality: Aching, Dull, Sharp, Shooting and occasional sharp shooting pains that started about 3-4 weeks ago. Timing/Duration: Constant and > 12 weeks duration. Controlled Substance: I have personally reviewed the [place] report for BRANDON MURO. I have considered the risks of abuse, dependence, addiction and diversion. Exacerbating Factors: lifting and walking. Alleviating Factors: Moist Heat. 24 Hour Behavior: Symptoms are better in the am. Symptoms are worse (more content not included)... Normal [facility] Coronavirus 2019 RNA by PCR, Screening Asymptomticon 06-08-2020 Coronavirus 2019 RNA by PCR, Screening Asymptomtic NOT DETECTED See Below -[facility] Internal Medicine Work Phone: Comment on above: SOURCE: Nasal, Nasop haryngealReference Range: Not Detected.This assay is designed to detect the N, ORF1ab and/or S genes of SARS-CoV-2 via nucleic acid amplification. A Negative (NOT DETECTED) result does not preclude 2019-nCoV infection since the adequacy of sample collection and/or low viral burden may result in presence of viral nucleic acids below the clinical sensitivity of this test method. Negative (NOT DETECTED) result should not be used as the sole basis for treatment or other patient management decisions. Rather negative results should be combined with clinical observations, patient history, and epidemiological information to make patient management decisions.Fact sheet for providers: https://www.fda.gov/media/827428/downloadFact sheet for patients: https://www.fda.gov/media/055261/downloadThis test has received FDA Emergency Use Authorization (EUA) and has been verified by [facility] ([facility]). This test is only authorized for the duration of time that circumstances exist to justify the authorization of the emergency use of in vitro diagnostic tests for the detection of SARS-CoV-2 virus and/or diagnosis of COVID-19 infection under section 564(b)(1) of the Act, 21 U.S.C. 360bbb-3(b)(1), unless the authorization is terminated or revoked sooner. [facility] is certified under CLIA-88 as qualified to perform high complexity testing. Testing is performed in the [facility] laboratories located at [address] [place] [address]. Coronavirus 2019 RNA by PCR, Screening Asymptomticon 06-06-2020 Coronavirus 2019 RNA by PCR, Screening Asymptomtic NOT DETECTED See Below -[facility] Medicine Work Phone: Comment on above: SOURCE: Nasal, Nasop haryngealReference Range: Not Detected.This assay is designed to detect SARS-CoV-2 based on replication of specific regions of the RNA from the SARS-CoV-2 virus. A Not Detected result does not preclude 2019-nCoV infection since the adequacy of sample collection and/or low viral burden may result in presence of viral nucleic acids below the clinical sensitivity of this test method. Fact sheet for providers: https://www.fda.gov/media/152726/downloadFact sheet for patients: https://www.fda.gov/media/572041/downloadThis test has received FDA Emergency Use Authorization [EUA] and has been verified by [facility] ([facility]). This test is only authorized for the duration of time that circumstances exist to justify the authorization of the emergency use of in vitro diagnostic tests for the detection of SARS-CoV-2 virus and/or diagnosis of COVID-19 infection under section 564(b)(1) of the Act, 21 U.S.C. 360bbb-3(b)(1), unless the authorization is terminated or revoked sooner. [facility] is certified under CLIA-88 as qualified to perform high complexity testing. Testing is performed in the [facility] laboratories located at [address] [place] [address]. Basic Panelon 02-27-2020 Anion gap [Moles/Vol] 9 mmol/L Normal 9-18 [facility] Comment on above: Performed By: #### L ESR #### [address] [address] Calcium [Mass/Vol] 9.9 mg/dL Normal 8.5-10.2 [facility] Comment on above: Performed By: #### L ESR #### [address] [address] Chloride [Moles/Vol] 103 mmol/L Normal 97-105 [facility] Comment on above: Performed By: #### L ESR #### [facility] [address] [place], [place] [address] CO2 Blood 27 mmol/L Normal 22-30 [facility] Comment on above: Performed By: #### L ESR #### [facility] [address] [place], [place] [address] Creatinine [Mass/Vol] 1.05 mg/dL High 0.58-0.96 [facility] Comment on above: Performed By: #### L ESR #### [address] [address] Glucose [Mass/Vol] 99 mg/dL Normal 74-99 [facility] Comment on above: Result Comment: The [place] [employer] (ADA) provides guidance for cutoff values for fasting glucose and random glucose. The ADA defines fasting as no caloric intake for at least 8 hours.Fasting plasma glucose results between 100 to 125 mg/dL indicate increased risk for diabetes (prediabetes). Fasting plasma glucose results greater than or equal to 126 mg/dL meet the criteria for diagnosis of diabetes. In the absence of unequivocal hyperglycemia, results should be confirmed by repeat testing. In a patient with classic symptoms of hyperglycemia or hyperglycemic crisis, random plasma glucose results greater than or equal to 200 mg/dL meet the criteria for diagnosis of diabetes. Reference: Standards of Medical Care in Diabetes 2016; [place] [employer]. Diabetes Care. 2016;39(Suppl 1). Performed By: #### L ESR #### [facility] [address] [place], [place] [address] Potassium [Moles/Vol] 3.8 mmol/L Normal 3.7-5.1 [facility] Comment on above: Performed By: #### L ESR #### [address] [address] Sodium [Moles/Vol] 139 mmol/L Normal 136-144 [facility] Comment on above: Performed By: #### L ESR #### [address] [address] Urea nitrogen [Mass/Vol] 26 mg/dL High 7-21 [facility] Comment on above: Performed By: #### L ESR #### [address] [address] MDRD eGFRon 02-27-2020 GFR/1.73 sq M predicted among non-blacks MDRD (S/P/Bld) [Vol rate/Area] 54.68 mL/min/{1.73_m2} Normal >60mL/min/1. 73m2 [facility] Comment on above: Result Comment: If t he patient is , multiply the result by 1.210. Performed By: #### L ESR #### [facility] [address] [place], [place] [address] Total 25-OH Vitamin Don - Total 25-OH Vitamin D 28.1 ng/mL Low 30.0-100.0 [facility] Comment on above: Performed By: #### L ESR #### [facility] [address] [place] [address] Comprehensive Panelon 2019 Albumin [Mass/Vol] 4.7 g/dL Normal 3.9-4.9 [facility] Comment on above: Performed By: #### L ESR #### [facility] [address] [place] [address] ALP [Catalytic activity/Vol] 64 U/L Normal 34-123 [facility] Comment on above: Performed By: #### L ESR #### [facility] [address] [place] [address] ALT-SGPT Blood 14 U/L Normal 7-[address] [facility] Comment on above: Performed By: #### L ESR #### [facility] [address] [place] [address] Anion gap [Moles/Vol] 14 mmol/L Normal 9-18 [facility] Comment on above: Performed By: #### L ESR #### [facility] [address] [place] [address] AST-SGOT Blood 19 U/L Normal 13-[address] [facility] Comment on above: Performed By: #### L ESR #### [facility] [address] [place] [address] Bilirubin Ql (U) 0.4 mg/dL Normal 0.2-1.3 [facility] Comment on above: Performed By: #### L ESR #### [facility] [address] [place] [address] Calcium [Mass/Vol] 10.4 mg/dL High 8.5-10.2 [facility] Comment on above: Performed By: #### L ESR #### [facility] [address] [place] [address] Chloride [Moles/Vol] 98 mmol/L Normal 97-105 [facility] Comment on above: Performed By: #### L ESR #### [facility] [address] [place] [address] CO2 Blood 25 mmol/L Normal 22-30 [facility] Comment on above: Performed By: #### L ESR #### [facility] [address] [place], [place] [address] Creatinine [Mass/Vol] 1.11 mg/dL High 0.58-0.96 [facility] Comment on above: Performed By: #### L ESR #### [facility] [address] [place], [place] [address] Glucose [Mass/Vol] 97 mg/dL Normal 74-99 [facility] Comment on above: Result Comment: The [place] [employer] (ADA) provides guidance for cutoff values for fasting glucose and random glucose. The ADA defines fasting as no caloric intake for at least 8 hours.Fasting plasma glucose results between 100 to 125 mg/dL indicate increased risk for diabetes (prediabetes). Fasting plasma glucose results greater than or equal to 126 mg/dL meet the criteria for diagnosis of diabetes. In the absence of unequivocal hyperglycemia, results should be confirmed by repeat testing. In a patient with classic symptoms of hyperglycemia or hyperglycemic crisis, random plasma glucose results greater than or equal to 200 mg/dL meet the criteria for diagnosis of diabetes. Reference: Standards of Medical Care in Diabetes 2016; [place] [employer]. Diabetes Care. 2016;39(Suppl 1). Performed By: #### L ESR #### [facility] [address] [place], [place] [address] Potassium [Moles/Vol] 3.5 mmol/L Low 3.7-5.1 [facility] Comment on above: Performed By: #### L ESR #### [facility] [address] [place], [place] [address] Protein [Mass/Vol] 7.9 g/dL Normal 6.3-8.0 [facility] Comment on above: Performed By: #### L ESR #### [facility] [address] [place], [place] [address] Sodium [Moles/Vol] 137 mmol/L Normal 136-144 [facility] Comment on above: Performed By: #### L ESR #### [facility] [address] [place], [place] [address] Urea nitrogen [Mass/Vol] 26 mg/dL High 7-21 [facility] Comment on above: Performed By: #### L ESR #### [address] [address] Hemogramon 02-07-2020 Erythrocyte distribution width (RBC) [Ratio] 13.5 % Normal 11.5-15.9 [facility] Comment on above: Performed By: #### L ESR #### [facility] [address] [place] [address] Hematocrit (Bld) [Volume fraction] 41.6 % Normal 37.0-47.0 [facility] Comment on above: Performed By: #### L ESR #### [facility] [address] [place] [address] Hemoglobin (Bld) [Mass/Vol] 13.5 g/dL Normal 12.0-16.0 [facility] Comment on above: Performed By: #### L ESR #### [place] [address] MCH (RBC) [Entitic mass] 26.8 pg Low 27.0-31.0 [facility] Comment on above: Performed By: #### L ESR #### [place] [address] MCHC (RBC) [Mass/Vol] 32.5 % Normal 32.0-36.0 [facility] Comment on above: Performed By: #### L ESR #### [place] [address] MCV (RBC) [Entitic vol] 82.7 fL Normal 81.0-99.0 [facility] Comment on above: Performed By: #### L ESR #### [place] [address] Platelet mean volume (Bld) [Entitic vol] 12.0 fL High 7.1-10.5 [facility] Comment on above: Performed By: #### L ESR #### [facility] [address] [place] [address] Platelets (Bld) [#/Vol] 207 thou/cmm Normal 150-400 [facility] Comment on above: Performed By: #### L ESR #### [place] [address] RBC (Bld) [#/Vol] 5.03 mil/cmm Normal 4.20-5.40 [facility] Comment on above: Performed By: #### L ESR #### [facility] [address] [place], [place] [address] WBC (Bld) [#/Vol] 7.0 thou/cmm Normal 4.8-10.5 [facility] Comment on above: Performed By: #### L ESR #### [place] [id number] Lipid Profile, Basicon 02-06 Cholesterol [Mass/Vol] 187 mg/dL Normal 0-199 [facility] Comment on above: Result Comment: Tota l Cholesterol < 200 mg/dL, Desirable Total Cholesterol 200 to 239 mg/dL, Borderline high Total Cholesterol > 239 mg/dL, High Performed By: #### L LPF #### [place] [address] Cholesterol in HDL [Mass/Vol] 74 mg/dL Normal [facility] Comment on above: Result Comment: Refe rence Range: HDL Cholesterol 40- 59 mg/dL, Acceptable HDL Cholesterol >59 mg/dL, High; Negative risk factor for coronary heart disease HDL Cholesterol <40 mg/dL, Low; Positive risk factor for coronary heart disease Performed By: #### L LPF #### [place] [address] Cholesterol in LDL [Mass/Vol] 101 mg/dL High 0-99 [facility] Comment on above: Result Comment: LDL Cholesterol < 100 mg/dL, Optimal LDL Cholesterol 100 to 129 mg/dL, Near optimal/above optimal LDL Cholesterol 130 to 159 mg/dL, Borderline high LDL Cholesterol 160 to 189 mg/dL, High LDL Cholesterol > 189 mg/dL, Very high Secondary prevention optimal LDL Cholesterol levels are recommended to be < 70 mg/dL Performed By: #### L LPF #### [place] [id number] Cholesterol in LDL/Cholesterol in HDL [Mass ratio] 1.36 Normal 0.00-2.53 [facility] Comment on above: Performed By: #### L LPF #### [place] [id number] Cholesterol.total/C holesterol in HDL [Mass ratio] 2.53 {ratio} Normal 0.00-5.09 [facility] Comment on above: Performed By: #### L LPF #### [place] [address] FASTING TIME 12 Hrs Normal [facility] Comment on above: Performed By: #### L LPF #### [place] [address] Non-HDL Cholesterol 113 mg/dL Normal 0-129 [facility] Comment on above: Result Comment: Non HDL Cholesterol < 130 mg/dL, Optimal Non HDL Cholesterol 130 to 159 mg/dL, Near optimal/above optimal Non HDL Cholesterol 160 to 189 mg/dL, Borderline high Non HDL Cholesterol 190 to 219 mg/dL, High Non HDL Cholesterol > 219 mg/dL, Very high Secondary prevention optimal non HDL Cholesterol levels are recommended to be < 100 mg/dL Performed By: #### L LPF #### [place] [address] Triglyceride Blood 61 mg/dL Normal 0-149 [facility] Comment on above: Result Comment: Trig lycerides < 150 mg/dL, Normal Triglycerides 150 to 199 mg/dL, Borderline high Triglycerides 200 to 499 mg/dL, High Triglycerides > 499 mg/dL, Very high Performed By: #### L LPF #### [place] [address] VLDL Cholesterol 12 mg/dL Normal 0-29 [facility] Comment on above: Performed By: #### L LPF #### [place] [address] MDRD eGFRon 02-07-2020 GFR/1.73 sq M predicted among non-blacks MDRD (S/P/Bld) [Vol rate/Area] 51.29 mL/min/{1.73_m2} Normal >60mL/min/1. 73m2 [facility] Comment on above: Result Comment: If t he patient is , multiply the result by 1.210. Performed By: #### L ESR #### [place] [address] Urinalysis, reflexon 020 Appearance (U) CLEAR Normal [facility] Comment on above: Performed By: #### L URIR #### [facility] [address] [place] [address] Bilirubin Urine Negative Normal Negative [facility] Comment on above: Performed By: #### L URIR #### [facility] [address] [place] [address] Color (U) YELLOW Normal [facility] Comment on above: Performed By: #### L URIR #### [facility] [address] [place] [address] Ep Cells Urine 0-2 Normal 0-[address] [facility] Comment on above: Performed By: #### L URIR #### [facility] [address] [place] [address] Glucose Ql (U) Negative Normal Negative [facility] Comment on above: Performed By: #### L URIR #### [place] [address] Hemoglobin,Urine Negative Normal Negative [facility] Comment on above: Performed By: #### L URIR #### [facility] [address] [place] [address] Ketone Urine Negative Normal Negative [facility] Comment on above: Performed By: #### L URIR #### [place] [address] Leukocytes Esterase Negative Normal Negative [facility] Comment on above: Performed By: #### L URIR #### [facility] [address] [place] [address] Nitrites Urine Negative Normal Negative [facility] Comment on above: Performed By: #### L URIR #### [facility] [address] [place] [address] pH (U) 5.5 [pH] Normal 5.0-8.0 [facility] Comment on above: Performed By: #### L URIR #### [place] [address] Protein (U) [Mass/Vol] Negative Normal Negative [facility] Comment on above: Performed By: #### L URIR #### [facility] [address] [place] [address] RBC LM.HPF (Urine sed) [#/Area] NONE Normal 0-3 [facility] Comment on above: Performed By: #### L URIR #### [facility] [address] [place] [address] Specific [place], Ur 1.010 Normal 1.005-1.030 [facility] Comment on above: Performed By: #### L URIR #### [facility] [address] [place] [address] Urobilinogen,Ur 0.2 EU/dL Normal 0.2-1.0 [facility] Comment on above: Performed By: #### L URIR #### [facility] [address] [place] [address] WBC LM.HPF (Urine sed) [#/Area] NONE Normal 0-5 [facility] Comment on above: Performed By: #### L URIR #### [facility] [address] [place] [address] Basic Panelon 05-03-2019 Creatinine [Mass/Vol] 1.04 mg/dL High 0.51-0.95 [facility] Comment on above: Performed By: #### P 8 #### [place] [address] Anion gap [Moles/Vol] 9 mmol/L Normal 8-16 [facility] Comment on above: Performed By: #### P 8 #### [facility] [address] [place] [address] CO2 [Moles/Vol] 27 mmol/L Normal 21-32 [facility] Comment on above: Performed By: #### P 8 #### [facility] [address] [place] [address] Urea nitrogen [Mass/Vol] 16 mg/dL Normal 7-18 [facility] Comment on above: Performed By: #### P 8 #### [place] [address] Calcium [Mass/Vol] 9.4 mg/dL Normal 8.5-10.1 [facility] Comment on above: Performed By: #### P 8 #### [facility] [address] [place], [place] [address] Glucose [Mass/Vol] 131 mg/dL High 70-99 [facility] Comment on above: Performed By: #### P 8 #### [facility] [address] [place], [place] [address] Chloride [Moles/Vol] 103 mmol/L Normal 98-107 [facility] Comment on above: Performed By: #### P 8 #### [facility] [address] [place], [place] [address] Potassium [Moles/Vol] 3.3 mmol/L Low 3.5-5.1 [facility] Comment on above: Performed By: #### P 8 #### [address] [address] Sodium [Moles/Vol] 136 mmol/L Normal 136-145 [facility] Comment on above: Performed By: #### P 8 #### [address] [address] MDRD GFRon 05-03-2019 GFR/1.73 sq M predicted among non-blacks MDRD (S/P/Bld) [Vol rate/Area] 52.14 mL/min/{1.73_m2} Normal >60mL/min/1. 73m2 [facility] Comment on above: Result Comment: If t he patient is , multiply the result by 1.210. Performed By: #### G FR #### [place] [address] CHELA by IFA Scrn w [employer] CHELA by IFA Scrn w [employer]fl[employer] SEE BELOW Normal [facility] Comment on above: Result Comment: CHELA Positive AB NEGAT Normal range : negative at <1:80 serum dilution. CHELA Titer 1:640 AB NEGAT CHELA Pattern Speckled Performing Laboratory: [facility] [address] [place] [address] Performed By: #### A NAX #### [address] [address] Basic Panelon 03-22-2019 Anion gap [Moles/Vol] 9 mmol/L Normal 8-16 [facility] Comment on above: Performed By: #### P 8 #### [facility] [address] [place], [place] [address] Calcium [Mass/Vol] 9.6 mg/dL Normal 8.5-10.1 [facility] Comment on above: Performed By: #### P 8 #### [facility] [address] [place], [place] [address] CO2 [Moles/Vol] 27 mmol/L Normal 21-32 [facility] Comment on above: Performed By: #### P 8 #### [facility] [address] [place] [address] Creatinine [Mass/Vol] 1.10 mg/dL High 0.51-0.95 [facility] Comment on above: Performed By: #### P 8 #### [facility] [address] [place] [address] Urea nitrogen [Mass/Vol] 18 mg/dL Normal 7-18 [facility] Comment on above: Performed By: #### P 8 #### [facility] [address] [place], [place] [address] Glucose [Mass/Vol] 87 mg/dL Normal 70-99 [facility] Comment on above: Performed By: #### P 8 #### [facility] [address] [place], [place] [address] Chloride [Moles/Vol] 104 mmol/L Normal 98-107 [facility] Comment on above: Performed By: #### P 8 #### [facility] [address] [place], [place] [address] Potassium [Moles/Vol] 3.4 mmol/L Low 3.5-5.1 [facility] Comment on above: Performed By: #### P 8 #### [facility] [address] [place] [address] Sodium [Moles/Vol] 137 mmol/L Normal 136-145 [facility] Comment on above: Performed By: #### P 8 #### [facility] [address] [place] [address] CRPon 03-22-2019 CRP [Mass/Vol] 2.06 mg/dL High 0.00-0.[address] [facility] Comment on above: Performed By: #### C RP3 #### [facility] [address] [place] [address] MDRD GFRon 03-22-2019 GFR/1.73 sq M predicted among non-blacks MDRD (S/P/Bld) [Vol rate/Area] 48.89 mL/min/{1.73_m2} Normal >60mL/min/1. 73m2 [facility] Comment on above: Result Comment: If t he patient is , multiply the result by 1.210. Performed By: #### G FR #### [place] [address] Hemogramon 03-21-2019 Erythrocyte distribution width (RBC) [Ratio] 14.4 % Normal 11.5-15.9 [facility] Comment on above: Performed By: #### L CBC #### [place] [address] Hematocrit (Bld) [Volume fraction] 41.6 % Normal 37.0-47.0 [facility] Comment on above: Performed By: #### L CBC #### [place] [address] Hemoglobin (Bld) [Mass/Vol] 13.2 g/dL Normal 12.0-16.0 [facility] Comment on above: Performed By: #### L CBC #### [place] [address] MCH (RBC) [Entitic mass] 26.2 pg Low 27.0-31.0 [facility] Comment on above: Performed By: #### L CBC #### [facility] [address] [place] [address] MCHC (RBC) [Mass/Vol] 31.7 % Low 32.0-36.0 [facility] Comment on above: Performed By: #### L CBC #### [place] [address] MCV (RBC) [Entitic vol] 82.5 fL Normal 81.0-99.0 [facility] Comment on above: Performed By: #### L CBC #### [facility] [address] [place] [address] Platelet mean volume (Bld) [Entitic vol] 11.7 fL High 7.1-10.5 [facility] Comment on above: Performed By: #### L CBC #### [facility] [address] [place] [address] Platelets (Bld) [#/Vol] 235 thou/cmm Normal 150-400 [facility] Comment on above: Performed By: #### L CBC #### [facility] [address] [place] [address] RBC (Bld) [#/Vol] 5.04 mil/cmm Normal 4.20-5.40 [facility] Comment on above: Performed By: #### L CBC #### [facility] [address] [place] [address] WBC (Bld) [#/Vol] 9.7 thou/cmm Normal 4.8-10.5 [facility] Comment on above: Performed By: #### L CBC #### [place] [address] Sed Rateon 03-21-2019 Sed Rate 35 mm/hr High 0-20 [facility] Comment on above: Performed By: #### L ESR #### [place] [address] Vital Signs Date Time Vital Sign Value Performing Clinician Blanca castañeda 04-19-2024 10:41-0400 Body height 156.2 cm Donell Olivera APRN.CNP Work Phone: [facility] 04-19-2024 10:41-0400 Body mass index (BMI) [Ratio] 40.15 kg/m2 Donell Olivera APRN.CNP Work Phone: [facility] 04-19-2024 10:41-0400 Body temperature 98.01 [degF] Donell Olivera APRN.CNP Work Phone: [facility] 04-19-2024 10:41-0400 Body weight 97.98 kg Donell Olivera [employer]PROGRAM ADMINISTRATOR Work Phone: [facility] 04-19-2024 10:41-0400 Diastolic blood pressure 72 mm[Hg] Donell Olivera [employer].PROGRAM ADMINISTRATOR Work Phone: [facility] 04-19-2024 10:41-0400 Heart rate 85 /min Donell Olivera [employer].PROGRAM ADMINISTRATOR Work Phone: [facility] 04-19-2024 10:41-0400 SaO2% (BldA) [Mass fraction] 98 % Donell Olivera [employer].PROGRAM ADMINISTRATOR Work Phone: [facility] 04-19-2024 10:41-0400 Systolic blood pressure 126 mm[Hg] Donell Olivera [employer].PROGRAM ADMINISTRATOR Work Phone: [facility] 02-22-2024 08:04-0400 Body height 156.2 cm Pilar Johnstonel [employer].PROGRAM ADMINISTRATOR Work Phone: [facility] 02-22-2024 08:04-0400 Body mass index (BMI) [Ratio] 39.41 kg/m2 Pilar Nabil [employer].PROGRAM ADMINISTRATOR Work Phone: [facility] 02-22-2024 08:04-0400 Body weight 96.16 kg Pilar Nabil [employer].PROGRAM ADMINISTRATOR Work Phone: [facility] 02-22-2024 08:04-0400 Diastolic blood pressure 72 mm[Hg] Pilar Nabil [employer].PROGRAM ADMINISTRATOR Work Phone: [facility] 02-22-2024 08:04-0400 Heart rate 76 /min Pilar Nabil [employer].PROGRAM ADMINISTRATOR Work Phone: [facility] 02-22-2024 08:04-0400 Respiratory rate 16 /min Pilar Nabil [employer].PROGRAM ADMINISTRATOR Work Phone: [facility] 02-22-2024 08:04-0400 SaO2% (BldA) [Mass fraction] 98 % Pilar Nabil [employer].PROGRAM ADMINISTRATOR Work Phone: [facility] 02-22-2024 08:04-0400 Systolic blood pressure 120 mm[Hg] Pilar Nabil [employer].PROGRAM ADMINISTRATOR Work Phone: [facility] 11-30-2023 09:59-0400 Body height 156.2 cm Pilar Nabil [employer].PROGRAM ADMINISTRATOR Work Phone: [facility] 11-30-2023 09:59-0400 Body mass index (BMI) [Ratio] 39.41 kg/m2 Pilar Nabil [employer].PROGRAM ADMINISTRATOR Work Phone: [facility] 11-30-2023 09:59-0400 Body temperature 98.2 [degF] Pilar Nabil [employer].PROGRAM ADMINISTRATOR Work Phone: [facility] 11-30-2023 09:59-0400 Body weight 96.16 kg Pilra Nabil [employer].PROGRAM ADMINISTRATOR Work Phone: [facility] 11-30-2023 09:59-0400 Diastolic blood pressure 76 mm[Hg] Pilar Nabil [employer] MANAGER.PROGRAM ADMINISTRATOR Work Phone: [facility] 11-30-2023 09:59-0400 Heart rate 82 /min Pilar Nabil [employer]NA[employer].PROGRAM ADMINISTRATOR Work Phone: [facility] 11-30-2023 09:59-0400 Respiratory rate 18 /min Pilar Nabil [employer]NA[employer].PROGRAM ADMINISTRATOR Work Phone: [facility] 11-30-2023 09:59-0400 SaO2% (BldA) [Mass fraction] 98 % Pilar Nabil [employer] MANA[employer].PROGRAM ADMINISTRATOR Work Phone: [facility] 11-30-2023 09:59-0400 Systolic blood pressure 128 mm[Hg] Pilar Nabil [employer]NA[employer].PROGRAM ADMINISTRATOR Work Phone: [facility] 09-30-2022 09:15-0400 Diastolic blood pressure 72 mm[Hg] Pilar Nabil [employer]NAGER.PROGRAM ADMINISTRATOR Work Phone: [facility] 09-30-2022 09:15-0400 Systolic blood pressure 148 mm[Hg] Pilar Ferrer [employer]NA[employer].PROGRAM ADMINISTRATOR Work Phone: [facility] 09-30-2022 08:54-0400 Body height 157.5 cm Pilar Ferrer [employer]NA[employer].PROGRAM ADMINISTRATOR Work Phone: [facility] 09-30-2022 08:54-0400 Body temperature 97.59 [degF] Pilar Ferrer [employer] MANAGER.PROGRAM ADMINISTRATOR Work Phone: [facility] 09-30-2022 08:54-0400 Body weight 87.54 kg Pilar Ferrer [employer]NA[employer].PROGRAM ADMINISTRATOR Work Phone: [facility] 09-30-2022 08:54-0400 Heart rate 65 /min Pilar Ferrer [employer]NA[employer].PROGRAM ADMINISTRATOR Work Phone: [facility] 09-30-2022 08:54-0400 Respiratory rate 18 /min Pilar Ferrer [employer]NA[employer].PROGRAM ADMINISTRATOR Work Phone: [facility] 09-30-2022 08:54-0400 SaO2% (BldA) [Mass fraction] 98 % Pilar Ferrer [employer]NAGER.PROGRAM ADMINISTRATOR Work Phone: [facility] Encounters Encounter Date Encounter Type Care Provider Facility Start: 04-19-2024 End: 04-19-2024 Patient encounter procedure Donell Olivera [employer].PROGRAM ADMINISTRATOR Work Phone: [facility] Comment on above: Herpes zoster withou t complication (Primary Dx) Start: 04-19-2024 End: 04-19-2024 ambulatory DONELL OLIVERA Facility:[facility] Start: 03-18-2024 End: 03-20-2024 Refill Pilar Ferrer [employer]PROGRAM ADMINISTRATOR Work Phone: [facility] Comment on above: Refill Request Start: 02-22-2024 End: 02-22-2024 Patient encounter procedure Pilar Ferrer [employer].PROGRAM ADMINISTRATOR Work Phone: [facility] Comment on above: Right wrist pain (Pr imary Dx); Chronic pain of right ankle Start: 02-22-2024 End: 02-22-2024 ambulatory PILAR Kalie NABIL Facility:[facility] Start: 01-27-2024 Refill Donell Mejia Tril l [employer]PROGRAM ADMINISTRATOR Work Phone: [facility] Comment on above: Refill Request Start: 01-26-2024 Refill Donell C Tril l [employer].PROGRAM ADMINISTRATOR Work Phone: [facility] Comment on above: Refill Request Start: 01-06-2024 End: 01-06-2024 [facility] Start: 12-16-2023 End: 12-16-2023 [facility] Start: 12-01-2023 Refill Pilar martinez [employer].PROGRAM ADMINISTRATOR Work Phone: [facility] Comment on above: Refill Request Start: 11-30-2023 Telephone encounter Pilar Ferrer [employer].PROGRAM ADMINISTRATOR Work Phone: [facility] Comment on above: Results Start: 11-30-2023 End: 11-30-2023 Subsequent hospital visit by physician [facility] Comment on above: Acquired clavicle de formity [M95.8] Start: 11-30-2023 End: 11-30-[address] [facility] Facility:[facility] Start: 11-30-2023 End: 11-30-[address] [facility] Facility:[facility] Start: 11-30-2023 End: 11-30-2023 Patient encounter procedure Pilar Ferrer BIODIESEL PLANT MANAGER.PROGRAM ADMINISTRATOR Work Phone: [facility] Comment on above: Medicare annual well ness visit, subsequent (Primary Dx); Primary hypertension; Anxiety and depression; Acquired clavicle deformity; Allergic rhinitis, unspecified seasonality, unspecified trigger; Stage 3 chronic kidney disease, unspecified whether stage 3a or 3b CKD ([facility]); Mixed hyperlipidemia; Vitamin D deficiency; Post-menopausal; Screening for thyroid disorder; Encounter for screening mammogram for malignant neoplasm of breast Start: 11-18-2023 Refill Pilar martinez BIODIESEL PLANT MANAGER.PROGRAM ADMINISTRATOR Work Phone: [facility] Comment on above: Refill Request Start: 10-29-2023 Refill Pilar Johnston el BIODIESEL PLANT MANAGER.PROGRAM ADMINISTRATOR Work Phone: [facility] Comment on above: Refill Request Start: 10-28-2023 Refill Pilar Johnston el BIODIESEL PLANT MANAGER.PROGRAM ADMINISTRATOR Work Phone: [facility] Comment on above: Refill Request Start: 09-26-2023 Refill Pilar Johnston el BIODIESEL PLANT MANAGER.PROGRAM ADMINISTRATOR Work Phone: [facility] Comment on above: Refill Request Start: 08-26-2023 End: 08-26-2023 ambulatory [facility] Start: 08-17-2023 Refill Pilar Johnston el BIODIESEL PLANT MANAGER.PROGRAM ADMINISTRATOR Work Phone: [facility] Comment on above: Refill Request Start: 08-11-2023 Telephone encounter Pilar Ferrer BIODIESEL PLANT MANAGER.PROGRAM ADMINISTRATOR Work Phone: [facility] Comment on above: Results Start: 08-09-2023 ambulatory Sera Ramos [facility] Comment on above: Population Health Na vigation Outreach (ACO Attributed - 2023 Medicare Wellness Appt Scheduled) Start: 07-30-2023 Refill Pilar Johnston el BIODIESEL PLANT MANAGER.PROGRAM ADMINISTRATOR Work Phone: [facility] Comment on above: Refill Request Start: 07-29-2023 Refill Pilarpaulo martinez BIODIESEL PLANT MANAGER.PROGRAM ADMINISTRATOR Work Phone: [facility] Comment on above: Refill Request Start: 05-03-2023 End: 05-03-2023 [facility] Start: 04-29-2023 Refill Pilar Johnston el BIODIESEL PLANT MANAGER.PROGRAM ADMINISTRATOR Work Phone: [facility] Comment on above: Refill Request Start: 04-11-2023 Refill Pilar Johnston el BIODIESEL PLANT MANAGER.PROGRAM ADMINISTRATOR Work Phone: [facility] Comment on above: Refill Request Start: 03-09-2023 Chart abstracting Pilar Andrade agel BIODIESEL PLANT MANAGER.PROGRAM ADMINISTRATOR Work Phone: [facility] Start: 02-19-2023 Telephone encounter Pilar Ferrer BIODIESEL PLANT MANAGER.PROGRAM ADMINISTRATOR Work Phone: [facility] Comment on above: Lab Orders Start: 01-04-2023 Chart abstracting Pilar Andrade agel BIODIESEL PLANT MANAGER.PROGRAM ADMINISTRATOR Work Phone: [facility] Start: 01-04-2023 Telephone encounter Pilar Ferrer BIODIESEL PLANT MANAGER.PROGRAM ADMINISTRATOR Work Phone: [facility] Comment on above: Results (Labs from ) Start: 12-22-2022 Refill Pilar Johnston el BIODIESEL PLANT MANAGER.PROGRAM ADMINISTRATOR Work Phone: [facility] Comment on above: Refill Request Start: 12-17-2022 Telephone encounter Pilar Ferrer BIODIESEL PLANT MANAGER.PROGRAM ADMINISTRATOR Work Phone: [facility] Comment on above: Results (Echo ) Start: 12-13-2022 Refill Pilar martinez BIODIESEL PLANT MANAGER.PROGRAM ADMINISTRATOR Work Phone: [facility] Comment on above: Refill Request Start: 11-25-2022 ambulatory Ms. Pilar plasencia Nabil Facility:[id number] Start: 10-30-2022 Refill Pilar martinez BIODIESEL PLANT MANAGER.PROGRAM ADMINISTRATOR Work Phone: [facility] Comment on above: Refill Request Start: 10-29-2022 ambulatory Ms. Pilar Ferrer Facility:[id number] Start: 09-30-2022 End: 09-30-2022 Patient encounter procedure Pilar Ferrer BIODIESEL PLANT MANAGER.PROGRAM ADMINISTRATOR Work Phone: [facility] Comment on above: Primary hypertension (Primary Dx); Anxiety and depression; Mixed hyperlipidemia; Mild aortic stenosis; Gastroesophageal reflux disease without esophagitis; Stage 3 chronic kidney disease, unspecified whether stage 3a or 3b CKD (HCC); Vitamin D deficiency; Encounter for screening mammogram for malignant neoplasm of breast; Screening for thyroid disorder; Encounter for hepatitis C screening test for low risk patient; Left carotid bruit; Allergic rhinitis, unspecified seasonality, unspecified trigger Start: 09-16-2022 End: 09-16-[address] Sesar Quinones Facility:[id number] Start: 08-19-2022 Telephone encounter Donell Olivera APRN.PROGRAM ADMINISTRATOR Work Phone: [facility] Comment on above: Orders (UA) Start: 07-28-2022 Refill Pilar martinez BIOD[employer]EL PLANT MANAGER.PROGRAM ADMINISTRATOR Work Phone: [facility] Comment on above: Refill Request Start: 06-17-2022 Refill Pilar martinez BIODIESEL PLANT MANAGER.PROGRAM ADMINISTRATOR Work Phone: [facility] Comment on above: Refill Request Start: 06-15-2022 Telephone encounter Pilar Ferrer APRN.PROGRAM ADMINISTRATOR Work Phone: [facility] Comment on above: Patient Update Start: 05-26-2022 Refill Pilar martinez BIODIESEL PLANT MANAGER.PROGRAM ADMINISTRATOR Work Phone: [facility] Comment on above: Refill Request Start: 05-01-2022 Refill Pilar martinez BIODIESEL PLANT MANAGER.PROGRAM ADMINISTRATOR Work Phone: [facility] Comment on above: Refill Request Start: 02-19-2022 Refill Pilar martinez BIODIESEL PLANT MANAGER.PROGRAM ADMINISTRATOR Work Phone: [facility] Comment on above: Refill Request Start: 01-16-2022 Refill Pilar martinez BIODIESEL PLANT MANAGER.PROGRAM ADMINISTRATOR Work Phone: [facility] Comment on above: Refill Request Start: 01-01-2022 Refill Pilar martinez BIODIESEL PLANT MANAGER.PROGRAM ADMINISTRATOR Work Phone: [facility] Comment on above: Refill Request Start: 08-24-2021 Chart Update Pilar martinez Work Phone: [facility] Work Phone: Start: 06-02-2021 End: 06-06-2021 ambulatory Darien Janas PA-C Work Phone: [facility] Comment on above: Status post total ri ght knee replacement (Primary Dx) Start: 05-30-2021 End: 06-03-2021 [facility] Start: 05-30-2021 End: 05-30-2021 ambulatory Warren Janas PA-C Work Phone: [facility] Comment on above: Status post total ri ght knee replacement (Primary Dx) Start: 05-28-2021 End: 06-01-2021 [facility] Start: 05-26-2021 End: 05-30-2021 [facility] Start: 05-26-2021 End: 05-26-2021 [facility] Work [facility]: [facility] Comment on above: Status post total ri ght knee replacement (Primary Dx) Start: 05-23-2021 End: 05-27-2021 [facility] Start: 05-23-2021 End: 05-23-2021 [facility] Work Phone: [facility] Comment on above: Status post total ri ght knee replacement (Primary Dx) Start: 05-21-2021 End: 05-25-2021 [facility] Start: 05-21-2021 End: 05-21-2021 [facility] Work Phone: [facility] Comment on above: Status post total ri ght knee replacement (Primary Dx) Start: 05-19-2021 End: 05-23-2021 [facility] Start: 05-19-2021 End: 05-19-2021 ambulatory Darien Mustafaas PA-C [facility] Comment on above: Status post total ri ght knee replacement (Primary Dx) Start: 05-16-2021 End: 05-20-2021 [facility] Start: 05-16-2021 End: 05-16-2021 ambulatory Darien Sethi PA-C Work Phone: [facility] Comment on above: Status post total ri ght knee replacement (Primary Dx) Start: 05-15-2021 End: 05-19-2021 [facility] Start: 05-15-2021 End: 05-15-2021 ambulatory Rina Alas MD [facility] Comment on above: Status post total ri ght knee replacement (Primary Dx) Start: 05-12-2021 End: 05-16-2021 [facility] Start: 05-12-2021 End: 05-12-2021 ambulatory Warren Ramseyas PA-C Work Phone: [facility] Comment on above: Status post total ri ght knee replacement (Primary Dx) Start: 05-09-2021 End: 05-13-2021 [facility] Start: 05-09-2021 End: 05-09-2021 ambulatory Darien Mustafadayanara PA-C [facility] Phone[facility] Comment on above: Status post total ri ght knee replacement (Primary Dx) Start: 05-07-2021 End: 05-11-2021 [facility] Start: 05-05-2021 End: 05-09-2021 [facility] Start: 05-05-2021 End: 05-05-2021 [facility] Work Phone: [facility] Comment on above: Status post total ri ght knee replacement (Primary Dx) Start: 05-02-2021 End: 05-06-2021 [facility] Start: 05-02-2021 End: 05-02-2021 ambulatory Darien Mustafadayanara PA-C Work Phone: [facility] Comment on above: Status post total ri ght knee replacement (Primary Dx); Presence of right artificial knee joint Start: 05-01-2021 Transcribe Orders Darien Ramseydayanara PA-C Work Phone: [facility] Comment on above: Presence of right ar tificial knee joint (Primary Dx) Start: 04-25-2021 End: 04-29-2021 [facility] Start: 04-25-2021 End: 04-25-2021 ambulatory Darien Ramseydayanara PA-C Work Phone: [facility] Comment on above: Status post total ri ght knee replacement (Primary Dx) Start: 04-23-2021 End: 04-27-2021 [facility] Start: 04-23-2021 End: 04-23-2021 ambulatory Darien Ramseydayanara PA-C Work Phone: [facility] Comment on above: Status post total ri ght knee replacement (Primary Dx) Start: 04-21-2021 End: 04-25-2021 [facility] Start: 04-21-2021 End: 04-21-2021 ambulatory Warren Navdeep PA-C Work Phone: [facility] Comment on above: Status post total ri ght knee replacement (Primary Dx) Start: 04-18-2021 End: 04-22-2021 [facility] Start: 04-16-2021 End: 04-20-2021 [facility] Start: 04-14-2021 End: 04-18-2021 [facility] Start: 04-11-2021 End: 04-15-2021 [facility] Start: 04-09-2021 End: 04-13-2021 [facility] Start: 04-07-2021 End: 04-11-2021 [facility] Start: 04-07-2021 End: 04-07-2021 ambulatory Warren Ramseyas PA-C Work Phone: [facility] Comment on above: Status post total ri ght knee replacement (Primary Dx) Start: 04-04-2021 End: 04-08-2021 [facility] Start: 04-04-2021 End: 04-04-2021 ambulatory Warren Ramseydayanara PA-C Work Phone: [facility] Comment on above: Status post total ri ght knee replacement (Primary Dx) Start: 04-02-2021 End: 04-06-2021 [facility] Start: 03-31-2021 End: 04-04-2021 [facility] Start: 03-31-2021 End: 03-31-2021 [facility]ulatory [facility] Work Phone: [facility] Comment on above: Status post total ri ght knee replacement (Primary Dx) Start: 03-26-2021 End: 03-30-2021 [facility] Start: 03-26-2021 End: 03-26-2021 [facility]ulatory [facility] Work Phone: [facility] Comment on above: Status post total ri ght knee replacement (Primary Dx) Start: 03-24-2021 End: 03-28-2021 [facility] Start: 03-24-2021 End: 03-24-2021 ambulatory Warren Ramseyas PA-C Work Phone: [facility] Comment on above: Status post total ri ght knee replacement (Primary Dx) Start: 03-21-2021 End: 03-25-2021 [facility] Start: 03-21-2021 End: 03-21-2021 [facility]ulatory [facility] Work Phone: [facility] Comment on above: Status post total ri ght knee replacement (Primary Dx) Start: 03-19-2021 End: 03-23-2021 ambulatory [facility] Start: 03-19-2021 End: 03-19-2021 ambulatory Warren Navdeep PA-C Work Phone[facility] Comment on above: Status post total ri ght knee replacement (Primary Dx) Start: 03-17-2021 End: 03-21-2021 ambulatory [facility] Start: 03-12-2021 End: 03-16-2021 ambulatory [facility] Start: 03-12-2021 End: 03-12-2021 [facility] HERNANDEZ-C Work Phone: [facility] Comment on above: Status post total ri ght knee replacement (Primary Dx) Start: 03-10-2021 End: 03-14-2021 [facility] Start: 03-04-2021 End: 03-08-2021 [facility] Start: 03-04-2021 End: 03-04-2021 ambulatory Warren Navdeep HERNANDEZ-C Work Phone: [facility] Comment on above: Status post total ri ght knee replacement; History of arthroplasty of right knee Start: 02-11-2021 Transcribe Karolina Ferro PSA [facility] Comment on above: History of arthropla sty of right knee (Primary Dx) Start: 02-04-2021 End: 02-04-2021 Documentation procedure Clemencia Montes PT [facility] Start: 02-03-2021 End: 02-07-2021 ambulatory [facility] Start: 02-03-2021 End: 02-03-2021 ambulatory Mundo Schaeffer MD Work Phone: [facility] Comment on above: Primary osteoarthrit is of right knee (Primary Dx) Start: 01-29-2021 End: 02-02-2021 ambulatory [facility] Start: 01-29-2021 End: 01-29-2021 ambulatory Mundo Schaeffer MD Work Phone: [facility] Comment on above: Primary osteoarthrit is of right knee (Primary Dx) Start: 01-28-2021 End: 02-01-2021 ambulatory PROVIDER NOT IN SYSTEM [facility] Start: 01-28-2021 End: 01-28-2021 ambulatory Provider Not In System [facility] Comment on above: Primary osteoarthrit is of right knee Start: 01-20-2021 End: 01-20-2021 Transcribe Orders Lisa Swartz PA-C Work Phone: [facility] Comment on above: Primary osteoarthrit is of right knee (Primary Dx) Procedures Date Procedure Procedure Detail Performing Clinician Start: 08-26-2023 Hepatic function 200 0 panel - Serum or Plasma PILAR FERRER Start: 08-26-2023 Lipid panel PILAR PURCELL Start: 05-03-2023 CBC W Auto Different ial panel - Blood PILAR FERRER Start: 05-03-2023 Comprehensive metabo lic 2000 panel - Serum or Plasma PILAR FERRER Start: 03-04-2023 BMP - EXTERNAL [facility] Prov ider Start: 03-04-2023 BMP EXTERNAL QAI Shelton Ferrer BIODIESEL PLANT MANAGER.PROGRAM ADMINISTRATOR Work Phone: Start: 03-04-2023 TSH BLD [facility] Provid er Start: 10-21-2022 CBC W/DIFF/PLT (EX[facility]) [facility] Provider Start: 10-21-2022 Comprehensive metabo lic 2000 panel - Serum or Plasma [facility] Provider Start: 10-21-2022 LIPID PANEL - EXTERNAL [facility] Provider Start: 10-21-2022 TSH BLD [facility] Provid er Start: 10-21-2022 VITAMIN D 25 HYDROXY [facility] f Provider Start: 10-21-2022 Lipid 1996 panel - S sindhu or Plasma Pilar Ferrer BIODIESEL PLANT MANAGER.PROGRAM ADMINISTRATOR Work Phone: Start: 09-16-2022 Colonoscopy Pilar purcell BIODIESEL PLANT MANAGER.PROGRAM ADMINISTRATOR Work Phone: Start: 09-13-2018 Mammography Pilar purcell BIODIESEL PLANT MANAGER.PROGRAM ADMINISTRATOR Work Phone: Operative procedure on hip C no Ferrer Work Phone: Comment on above: Right 2010; Operative procedure on knee Pilar Ferrer Work Phone: Comment on above: Left 2016; Plan of Treatment Date Care Activity Detail Author Start: 09-16-2032 Colonoscopy COLONOSCOPY [facility] Start: 09-16-2032 COLORECTAL CANCER SCREENING COLORECTAL CANCER SCREENING [facility] Start: 09-16-2032 Screening for malign ant neoplasm of colon [facility] Start: 10-22-2027 Lipid 1996 panel - S sindhu or Plasma Lipid Screening [facility] Start: 10-22-2027 Lipid panel Lipid Screening [facility] Start: 10-22-2027 LIPID SCREEN LIPID SCREEN [facility] Start: 01-05-2027 Diabetes Screening Diabetes Screenin g [facility] Start: 11-29-2026 Diabetes Screening Diabetes Screenin g [facility] Start: 03-04-2026 Diabetes Screening Diabetes Screenin g [facility] Start: 04-19-2025 Annual PCP Team Meat Supervisor delia Disease Visit Annual PCP Team Chronic Disease Visit [facility] Start: 04-19-2025 BP Controlled (<130/80) BP Controlle d (<130/80) [facility] Start: 02-21-2025 Annual PCP Team Meat Supervisor delia Disease Visit Annual PCP Team Chronic Disease Visit [facility] Start: 02-21-2025 BP Controlled (<130/80) BP Controlle d (<130/80) [facility] Start: 02-21-2025 Covid-19 Vaccine (#1) Covid-19 Vacci ne (#1) [facility] Comment on above: Postponed from 09/07 (Declined at this time) Start: 02-21-2025 Covid-19 Vaccine () Covid-19 Vaccine () [facility] Comment on above: Postponed from 02/26 (Declined at this time) Start: 02-21-2025 RSV Vaccine (1 - 1-d ose 60+ series) RSV Vaccine (1 - 1-dose 60+ series) [facility] Comment on above: Postponed from 09/07 (Declined at this time) Start: 02-21-2025 RSV Vaccine (1 - 1-d ose 75+ series) RSV Vaccine (1 - 1-dose 75+ series) [facility] Comment on above: Postponed from 09/07 (Declined at this time) Start: 02-21-2025 Shingrix Vaccine (1 of 2) Wills grix Vaccine (1 of 2) [facility] Comment on above: Postponed from 09/07 (Declined at this time) Postponed from 09/07 (Declined at this time) Start: 02-21-2025 Urine microalbumin profile DTa P,Tdap,Td Vaccine (1 - Tdap) [facility] Comment on above: Postponed from 09/07 (Declined at this time) Start: 02-06-2025 LIPID SCREEN LIPID SCREEN [facility] Start: 01-05-2025 Complete blood count Hemoglobin/Pankaj tocutt [facility] Start: 01-05-2025 Creatinine measurement Serum Creatin ine [facility] Start: 12-05-2024 End: 12-05-2024 Patient encounter procedure 12/05/2024 10:00 AM EDT Office Visit [facility] [address] [place] [address] Pilar Frerer, BIODIESEL PLANT MANAGER.PROGRAM ADMINISTRATOR [address] [place] [address] medicare wellness [facility] Comment on above: medicare wellness Start: 11-29-2024 Annual PCP Team Meat Supervisor delia Disease Visit Annual PCP Team Chronic Disease Visit [facility] Start: 11-29-2024 BP Controlled (<130/80) BP Controlle d (<130/80) [facility] Start: 11-29-2024 Complete blood count Hemoglobin/Pankaj tocrit [facility] Start: 11-29-2024 Creatinine measurement Serum Creatin ine [facility] Start: 03-04-2024 Creatinine measurement Serum Creatin ine [facility] Start: 02-27-2024 Covid-19 Vaccine ( season) Covid-19 Vaccine ( season) [facility] Start: 02-27-2024 Influenza vaccination C [facility] Start: 11-30-2023 End: 11-30-2023 Patient encounter procedure 11/30/2023 10:00 AM EDT Office Visit [facility] [address] [place] [address] Pilar Ferrer, JULIO.PROGRAM ADMINISTRATOR [address] [place] [address] Medicare wellness [facility] Comment on above: Medicare wellness Start: 10-22-2023 Complete blood count Hemoglobin/Pankaj tocrit [facility] Start: 10-22-2023 HEMOGLOBIN/HEMATOCRIT HEMOGLOBIN/HEM ATOCRIT [facility] Start: 10-01-2023 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 DELIA DISEASE VISIT ANNUAL PCP TEAM CHRONIC DISEASE VISIT [facility] Start: 08-05-2023 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 DELIA DISEASE VISIT ANNUAL PCP TEAM CHRONIC DISEASE VISIT [facility] Start: 08-05-2023 BP CONTROLLED (<130/80) BP CONTROLLE D (<130/80) [facility] Start: 08-05-2023 COVID-19 VACCINE (#1) COVID-19 VACCI NE (#1) [facility] Comment on above: Postponed from 03/10 (Declined at this time) Start: 05-04-2023 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 DELIA DISEASE VISIT ANNUAL PCP TEAM CHRONIC DISEASE VISIT [facility] Start: 05-04-2023 BP CONTROLLED (<130/80) BP CONTROLLE D (<130/80) [facility] Start: 02-26-2023 Covid-19 Vaccine ( season) Covid-19 Vaccine ( season) [facility] Start: 02-26-2023 DIABETES SCREEN DIABETES SCREEN [facility] Start: 02-26-2023 Diabetes Screening Diabetes Screenin g [facility] Start: 02-26-2023 Influenza vaccination C [facility] Start: 01-04-2023 End: 03-06-2023 Basic metabolic 2000 panel - Serum or Plasma BASIC METABOLIC PNL Lab Routine Elevated serum creatinine Expected: 01/04/2023, Expires: 03/06/2023 [facility] Work Phone: Comment on above: Expected: 01/04/2023 , Expires: 03/06/2023 Start: 01-04-2023 End: 03-06-2023 Thyrotropin [Units/volume] in Serum or Plasma TSH BLD Lab Routine Elevated TSH Abnormal thyroid function test Expected: 01/04/2023, Expires: 03/06/2023 [facility] Work Phone: Comment on above: Expected: 01/04/2023 , Expires: 03/06/2023 Start: 01-04-2023 End: 03-06-2023 Thyroxine (T4) free [Mass/volume] in Serum or Plasma T4 FREE/FREE THYROX Lab Routine Elevated TSH Abnormal thyroid function test Expected: 01/04/2023, Expires: 03/06/2023 [facility] Work Phone: Comment on above: Expected: 01/04/2023 , Expires: 03/06/2023 Start: 12-25-2022 Influenza vaccination INFLUENZA (#1) [facility] Comment on above: Postponed from 02/26 (Declined at this time) Start: 09-30-2022 End: 11-30-2022 25-hydroxyvitamin D3 [Mass/volume] in Serum or Plasma VITAMIN D 25 HYDROXY Lab Routine Vitamin D deficiency Expected: 09/30/2022, Expires: 11/30/2022 [facility] Work Phone: Comment on above: Expected: 09/30/2022 , Expires: 11/30/2022 Start: 09-30-2022 End: 11-30-2022 CBC panel - Blood by Automated count CBC Lab Routine Primary hypertension Expected: 09/30/2022, Expires: 11/30/2022 [facility] Work Phone: Comment on above: Expected: 09/30/2022 , Expires: 11/30/2022 Start: 09-30-2022 End: 11-30-2022 Comprehensive metabolic 2000 panel - Serum or Plasma COMP METABOLIC PANEL Lab Routine Primary hypertension Expected: 09/30/2022, Expires: 11/30/2022 [facility] Work Phone: Comment on above: Expected: 09/30/2022 , Expires: 11/30/2022 Start: 09-30-2022 End: 11-30-2022 Lipid 1996 panel - Serum or Plasma LIPID PANEL BASIC Lab Routine Mixed hyperlipidemia Expected: 09/30/2022, Expires: 11/30/2022 [facility] Work Phone: Comment on above: Expected: 09/30/2022 , Expires: 11/30/2022 Start: 09-30-2022 End: 11-30-2022 Thyrotropin [Units/volume] in Serum or Plasma TSH BLD Lab Routine Screening for thyroid disorder Expected: 09/30/2022, Expires: 11/30/2022 [facility] Work Phone: Comment on above: Expected: 09/30/2022 , Expires: 11/30/2022 Start: 08-19-2022 End: 10-19-2022 Urinalysis complete panel - Urine URINALYSIS WITH MICROSCOPIC, REFLEX CULTURE Lab Routine Microscopic hematuria Expected: 08/19/2022, Expires: 10/19/2022 [facility] Work Phone: Comment on above: Expected: 08/19/2022 , Expires: 10/19/2022 Start: 06-28-2022 ADVANCE DIRECTIVE DISCUSSION ADVANCE DIRECTIVE DISCUSSION [facility] Start: 05-14-2022 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 DELIA DISEASE VISIT ANNUAL PCP TEAM CHRONIC DISEASE VISIT [facility] Start: 05-14-2022 BP CONTROLLED (<130/80) BP CONTROLLE D (<130/80) [facility] Start: 05-14-2022 COVID-19 VACCINE (#1) COVID-19 VACCI NE (#1) [facility] Comment on above: Postponed from 09/07 (Declined at this time) Postponed from 03/10 (Declined at this time) Start: 02-26-2022 Influenza vaccination INFLUENZA (#1) [facility] Start: 06-28-2021 ADVANCE DIRECTIVE DISCUSSION ADVANCE DIRECTIVE DISCUSSION [facility] Start: 06-02-2021 End: 06-02-2021 ambulatory 06/02/2021 Treatment Rehabilitation Darien Sethi PA-C [address] [facility] [place] [address] Tanja Mcdonald PTA [facility] Start: 05-30-2021 End: 05-30-2021 ambulatory 05/30/2021 Treatment Rehabilitation Darien Sethi PA-C [address] [place] [address] Wilbert Palomares [facility] Start: 05-28-2021 End: 05-28-2021 ambulatory 05/28/2021 Treatment Rehabilitation Darien Sethi PA-C [address] [place] [address] Tanja Mcdonald [facility] Start: 05-26-2021 End: 05-26-2021 ambulatory 05/26/2021 Treatment Rehabilitation Darien Sethi PA-C [address] [place] [address] Tanja Mcdonald [facility] Start: 05-23-2021 End: 05-23-2021 ambulatory [facility] Start: 05-21-2021 End: 05-21-2021 ambulatory 05/21/2021 Treatment Rehabilitation Darien Sethi PA-C [address] [place] [address] Georgi Coughlin [facility] Start: 05-19-2021 End: 05-19-2021 ambulatory 05/19/2021 Treatment Rehabilitation Darien Sethi PA-C [address] [place] [address] Tanja Mcdonald [facility] Start: 05-16-2021 End: 05-16-2021 ambulatory 05/16/2021 Treatment Rehabilitation Darien Sethi PA-C [address] [place] [address] Tanja Mcdonald [facility] Start: 05-14-2021 End: 05-14-2021 ambulatory 05/14/2021 Treatment Rehabilitation Darien Sethi PA-C [address] [place] [address] Wilbert Palomares [facility] Start: 05-12-2021 End: 05-12-2021 ambulatory 05/12/2021 Treatment Rehabilitation Darien Sethi PA-C [address] [place] [address] Tanja Mcdonald [facility] Start: 05-09-2021 End: 05-09-2021 ambulatory 05/09/2021 Treatment Rehabilitation Darien Sethi PA-C [address] [place] [address] Wilbert Palomares [facility] Start: 05-07-2021 End: 05-07-2021 ambulatory 05/07/2021 Treatment Rehabilitation Darien Sethi PA-C [address] [place] [address] Wilbert Palomares [facility] Start: 05-05-2021 End: 05-05-2021 ambulatory 05/05/2021 Treatment Rehabilitation Darien Sethi PA-C [address] [place] [address] Clemencia Montes, PT [facility] Start: 05-02-2021 End: 05-02-2021 ambulatory 05/02/2021 Treatment Rehabilitation Darien Sethi PA-C [address] [place] [address] Wilbert Palomares [facility] Start: 04-25-2021 End: 04-25-2021 ambulatory 04/25/2021 Treatment Rehabilitation Darien Sethi PA-C [address] [place] [address] Tanja Mcdonald [facility] Start: 04-23-2021 End: 04-23-2021 ambulatory 04/23/2021 Treatment Rehabilitation Darien Sethi PA-C [address] [place] [address] Tanja Mcdonald [facility] Start: 04-09-2021 End: 04-09-2021 ambulatory [facility] Start: 04-07-2021 End: 04-07-2021 ambulatory [facility] Start: 04-04-2021 End: 04-04-2021 ambulatory [facility] Start: 04-02-2021 End: 04-02-2021 ambulatory [facility] Start: 03-31-2021 End: 03-31-2021 ambulatory [facility] Start: 03-26-2021 End: 03-26-2021 ambulatory [facility] Start: 03-24-2021 End: 03-24-2021 ambulatory [facility] Start: 03-21-2021 End: 03-21-2021 ambulatory 03/21/2021 Treatment Rehabilitation Darien Sethi PA-C [address] [place] [address] Tanja Mcdonald [facility] Start: 03-19-2021 End: 03-19-2021 ambulatory 03/19/2021 Treatment Rehabilitation Darien Sethi PA-C [address] [place] [address] Tanja Mcdonald [facility] Start: 03-17-2021 End: 03-17-2021 ambulatory [facility] Start: 03-12-2021 End: 03-12-2021 ambulatory 03/12/2021 Treatment Rehabilitation Darien Sethi PA-C [address] [place] [address] Clemencia Montes, PT [facility] Start: 03-10-2021 End: 03-10-2021 ambulatory 03/10/2021 Treatment Rehabilitation Darien Sethi PA-C [address] [place] [address] Tanja Mcdonald GUIDE [employer] [facility] Start: 03-06-2021 End: 03-06-2021 ambulatory 03/06/2021 Treatment Rehabilitation Darien Sethi PA-C [address] [place] [address] Georgi Coughlin PTA [facility] Start: 03-04-2021 End: 03-04-2021 ambulatory 03/04/2021 Evaluation Rehabilitation Darien Sethi PA-C [address] [place] [address] Clemencia Montes, PT [facility] Start: 02-26-2021 Creatinine measurement Serum Creatin ine [facility] Start: 02-26-2021 Influenza vaccination Sequenti al Influenza Vaccine (#1) [facility] Start: 02-26-2021 SERUM CREATININE SERUM CREATININE [facility] Start: 02-24-2021 End: 02-24-2021 ambulatory 02/24/2021 Treatment Rehabilitation Mundo Schaeffer MD [facility] [place] [address] [phone] System, Provider Not In Wilbert Palomares GUIDE [employer]LE[employer] [facility] Start: 02-19-2021 End: 02-19-2021 ambulatory 02/19/2021 Treatment Rehabilitation Mundo Schaeffer MD [address] [place] [address] [phone] System, Provider Not In Wilbert Palomares PTA [facility] Start: 02-17-2021 End: 02-17-2021 ambulatory 02/17/2021 Treatment Mundo Rain MD [address] [place] [address] [phone] System, Provider Not In Tanja Mcdonald PTA [facility] Start: 02-12-2021 End: 02-12-2021 ambulatory 02/12/2021 Treatment Rehabilitation Mundo Schaeffer MD [address] [place] [address] [phone] System, Provider Not In Wilbert Palomares PTA [facility] Start: 02-10-2021 End: 02-10-2021 ambulatory 02/10/2021 Treatment Rehabilitation Mundo Schaeffer MD [address] [place] [address] [phone] System, Provider Not In Wilbert Palomares PTA [facility] Start: 02-06-2021 HEMOGLOBIN/HEMATOCRIT HEMOGLOBIN/HEM ATOCRIT [facility] Start: 02-05-2021 End: 02-05-2021 ambulatory 02/05/2021 Treatment Mundo Rain MD [address] [place] [address] [phone] System, Provider Not In Wilbert Palomares PTA [facility] Start: 02-03-2021 End: 02-03-2021 ambulatory 02/03/2021 Treatment Rehabilitation Mundo Schaeffer MD [address] [place] [address] [phone] System, Provider Not In Wilbert Palomares PTA [facility] Start: 01-29-2021 End: 01-29-2021 ambulatory 01/29/2021 Treatment Rehabilitation Mundo Schaeffer MD [address] [phone] System, Provider Not In Tanja Mcodnald PTA [facility] Start: 01-28-2021 End: 01-28-2021 ambulatory 01/28/2021 Evaluation Rehabilitation System, Provider Not In Clemencia Montes PT [facility] Start: 09-14-2019 Mammography MAMMOGRAM [facility] Start: 09-07-2012 Fall risk assessment Falls Risk Asse ssment [facility] Start: 09-07-2012 Pneumococcal Vaccine : Age 65+ (1 of 1 - PPSV23) Pneumococcal Vaccine: Age 65+ (1 of 1 - PPSV23) [facility] Start: 2007 RSV Vaccine (1 - 1-d ose 60+ series) RSV Vaccine (1 - 1-dose 60+ series) [facility] Start: 09-07-1997 Administration of he rpes zoster vaccine Zoster Vaccines (1 of 2) [facility] Start: 09-07-1997 Screening for malign ant neoplasm of colon [facility] Start: 09-07-1997 SHINGRIX VACCINE (1 of 2) WILLS GRIX VACCINE (1 of 2) [facility] Start: 09-07-1992 COLOGUARD (FIT-DNA) COLOGUARD (FIT-D NA) [facility] Start: 09-07-1992 Colonoscopy COLONOSCOPY [facility] Start: 09-07-1992 COLORECTAL CANCER SCREENING COLORECTAL CANCER SCREENING [facility] Start: 09-07-[address] COLONOGRAPHY [facility] Start: 09-07-1992 FECAL OCCULT BLOOD FECAL OCCULT BLOO D [facility] Start: 09-07-1992 Screening for malign ant neoplasm of colon [facility] Start: 09-07-1992 SIGMOIDOSCOPY SIGMOIDOSCOPY [facility] Start: 1987 Screening for malign ant neoplasm of breast Mammogram [facility] Start: 09-07-1966 SHINGRIX VACCINE (1 of 2) WILLS GRIX VACCINE (1 of 2) [facility] Start: 09-07-1966 Urine microalbumin profile [facility] Start: 09-07-1965 Hepatitis C screening [facility] C [facility] Start: 09-07-1965 HEPATITIS C SCREENING HEPATITIS C SC TALI [facility] Start: 1959 COVID-19 Vaccine (1) COVID-19 Vaccin e (1) [facility] Start: 1959 Depression screening using PHQ-9 (Patient Health Questionnaire 9) score [facility] Start: 09-07-1958 Screening for malign ant neoplasm of cervix Cervical Cancer Screening [facility] Start: 09-07-1950 History and physical examination, annual for health maintenance Wellness Visit [facility] Start: 03-10-1948 COVID-19 VACCINE (#1) COVID-19 VACCI NE (#1) [facility] Start: 1947 Physical therapy management PT Plan of Care [facility] Start: 1947 Screening for osteoporosis Dexa Scan [facility] Start: 1947 Tetanus vaccination Tetanus: Every 1 0yrs [facility] End: 12-29-2024 DXA Skeletal system.axial Views for bone density DXA-AXIAL SKELETON Radiology Routine Post-menopausal 1 Occurrences starting 11/30/2023 until 12/29/2024 [facility] Work Phone: Comment on above: 1 Occurrences starti ng 11/30/2023 until 12/29/2024 End: 10-01-2023 Echocardiography ECHO Cardiology Routine Mild aortic stenosis 1 Occurrences starting 09/30/2022 until 10/01/2023 [facility] Work Phone: Comment on above: 1 Occurrences starti ng 09/30/2022 until 10/01/2023 End: 10-30-2023 ROSA ISELA SCREENING ROSA ISELA SCREENING Radiology Routine Encounter for screening mammogram for malignant neoplasm of breast 1 Occurrences starting 09/30/2022 until 10/30/2023 [facility] Work Phone: Comment on above: 1 Occurrences starti ng 09/30/2022 until 10/30/2023 End: 12-29-2024 MG Breast Screening ROSA ISELA SCREENING Radiology Routine Encounter for screening mammogram for malignant neoplasm of breast 1 Occurrences starting 11/30/2023 until 12/29/2024 [facility] Comment on above: 1 Occurrences starti ng 11/30/2023 until 12/29/2024 End: 10-30-2023 US CAROTID BILATERAL US CAROTID BILATERAL Radiology Routine Left carotid bruit 1 Occurrences starting 09/30/2022 until 10/30/2023 [facility] Work Phone: Comment on above: 1 Occurrences starti ng 09/30/2022 until 10/30/2023 End: 12-29-2024 XR Clavicle - left 2 Views XR CLAVICLE 2V LEFT Radiology Routine Acquired clavicle deformity 1 Occurrences starting 11/30/2023 until 12/29/2024 [facility] Comment on above: 1 Occurrences starti ng 11/30/2023 until 12/29/2024 XR Clavicle - left 2 Views XR CL AVICLE 2V LEFT Radiology Routine Acquired clavicle deformity 11/30/2023 11:15 AM EDT [facility] End: 12-29-2024 XR Clavicle - right 2 Views XR CLAVICLE 2V RIGHT Radiology Routine Acquired clavicle deformity 1 Occurrences starting 11/30/2023 until 12/29/2024 [facility] Comment on above: 1 Occurrences starti ng 11/30/2023 until 12/29/2024 XR Clavicle - right 2 Views XR CLAVICLE 2V RIGHT Radiology Routine Acquired clavicle deformity 11/30/2023 11:15 AM EDT [facility] Immunizations Immunization Date Immunization Notes Care Provider [facility] 05-14-2021 influenza, high-dose , quadrivalent vaccine (FLUZONE HIGH DOSE QUADRIVALENT) Pilar Ferrer APRN.PROGRAM ADMINISTRATOR Work Phone: [facility] 05-14-2021 influenza virus vacc ine, unspecified formulation Pilar Ferrer APRN.PROGRAM ADMINISTRATOR Work Phone: [facility] 06-02-2020 influenza, high-dose , quadrivalent vaccine (FLUZONE HIGH DOSE QUADRIVALENT) Donell Olivera APRN.PROGRAM ADMINISTRATOR Work Phone: [facility] Work Phone: 02-07-2020 pneumococcal polysaccharide vaccine, 23 valent Pilar Ferrer APRN.PROGRAM ADMINISTRATOR Work Phone: [facility] 04-14-2019 influenza, injectabl e, quadrivalent, preservative free Pilar Ferrer APRN.PROGRAM ADMINISTRATOR Work Phone: [facility] Work Phone: 08-30-2018 pneumococcal conjuga te vaccine, 13 valent Pilar Nabil [facility] Work Phone: [facility] Payers Date Payer Category Payer Private Health Insurance [id number] 2013 Unknown [id number] 2013 Private Health Insurance [id number] 2012 Medicare MEDICARE MEDICAR E PART A & B [id number] 2012-Present [place] [id number] 2012 Medicare [id number] .[id number] 2012 Medicare [id number] [id number] .[id number] 2012 Medicare [id number] 1947 Unknown [id number] 2.16.840.1.687927.3.579.2 .903 1947 Unknown [id number] 2.16.840.1.293433.3.579.2 .1947 Unknown [id number] 2.16.840.1.226110.3.579.2 .90 1947 Unknown [id number] 2.16.840.1.699870.3.579.2 .1947 Unknown [id number] 2.16.840.1.382034.3.579.2 .90 1947 Unknown [id number] 2.16.840.1.352873.3.579.2 .90 1947 Unknown [id number] 2.16.840.1.916626.3.579.2 .903 1947 Unknown [id number] 2.16.840.1.385067.3.579.2 .1947 Unknown [id number] 2.16.840.1.939011.3.579.2 .903 1947 Unknown [id number] 2.16.840.1.081540.3.579.2 .1947 Unknown [id number] 2.16.840.1.698367.3.579.2 .1947 Unknown [id number] 2.16.840.1.729960.3.579.2 .1947 Unknown [id number] 2.16.840.1.887017.3.579.2 .1947 Unknown [id number] 2.840.1.941767.3.579.2 .1947 Unknown [id number] 2.16.840.1.903575.3.579.2 .1947 Unknown [id number] 2.16.840.1.546845.3.579.2 .1947 Unknown [id number] 2.16.840.1.599323.3.579.2 .1947 Unknown [id number] 2.16840.1.895035.3.579.2 .1947 Unknown [id number] 2.16.840.1.659245.3.579.2 .1947 Unknown [id number] 2.16.840.1.661090.3.579.2 .1947 Unknown [id number] 2.16.840.1.287561.3.579.2 .1947 Unknown [id number] 2.16.840.1.089394.3.579.2 .903 1947 Unknown [id number] 2.16.840.1.383504.3.579.2 .1947 Unknown [id number] 2.16.840.1.049089.3.579.2 .1947 Unknown [id number] 2.16.840.1.899142.3.579.2 .1947 Unknown [id number] 2.16.840.1.116996.3.579.2 .1947 Unknown [id number] 2.16.840.1.844757.3.579.2 1947 Unknown [id number] 2.16.840.1.345339.3.579.2 .1947 Unknown [id number] 2.16.840.1.692201.3.579.2 1947 Unknown [id number] 2.16.840.1.397625.3.579.2 .1947 Unknown [id number] 2.16.840.1.613588.3.579.2 1947 Unknown [id number] 2.16.840.1.916321.3.579.2 .1947 Unknown [id number] 2.16.840.1.873651.3.579.2 .1947 Unknown [id number] 2.16.840.1.366163.3.579.2 .1947 Unknown [id number] 2.16.840.1.619123.3.579.2 .1947 Unknown [id number] 2.16.840.1.347236.3.579.2 .3 1947 Unknown [id number] 2.16.840.1.360665.3.579.2 .1947 Unknown [id number] 2.16.840.1.101990.3.579.2 .1069 1947 Unknown [id number] 2.16.840.1.472872.3.579.2 .1069 1947 Unknown [id number] 2.16.840.1.905847.3.579.2 .1069 1947 Unknown [id number] 2.16.840.1.988061.3.579.2 .1243 1947 Unknown [id number] 2.16.840.1.451714.3.579.2 .1245 1947 Unknown [id number] 2.16.840.1.244418.3.579.2 .1245 1947 Unknown [id number] 2.16.840.1.577515.3.579.2 .1245 Unknown Social History Date Type Detail Facility Assertion Tobacco smoking consumption unknown (finding) [facility] Work Phone: Start: 08-20-2014 End: 02-22-2024 Tobacco smoking status NHIS Former smoker [facility] Start: 08-20-2014 End: 04-23-2024 Alcohol intake Current non-drinker of alcohol (finding) [facility] Start: 1945 Sex Assigned At Not on file O [facility] Start: 04-24-2022 End: 05-04-2022 Exposure to SARS-CoV-2 (event) Not sure [facility] Start: 03-03-2012 End: 11-30-2023 Former smoker Former smoker [facility] Start: 06-28-1972 End: 06-28-1980 History of tobacco use Current smoker [facility] Start: 03-03-2012 End: 02-22-2024 Tobacco use and exposure Smokeless tobacco non-user [facility] Start: 03-03-2012 End: 02-22-2024 Tobacco Comment No one in household smokes [facility] Start: 06-28-1972 End: 06-28-1980 History of tobacco use Cigarette Smoker [facility] Start: 09-30-2022 End: 11-30-2023 Tobacco use panel [facility] Adult Depression Screening Assessment 0 [facility] Has the [employer], [employer], [employer], or [employer] company threatened to shut off services in your home in past 12Mo No [facility] Are you now , , , , never or living with a partner? [facility] How often to you hav e a drink containing alcohol? Never [facility] Do you feel stress - tense, restless, nervous, or anxious, or unable to sleep at night because your mind is troubled all the time - these days [OSQ] To some extent [facility] (I/We) worried wheth er (my/our) food would run out before (I/we) got money to buy more. Never true [facility] Functional Status Date Assessment Result Facility NEGATED: Highlighted row Functional performance Functional status health issues are not documented Disease [facility] Work Phone: Mental Status Date Assessment Result Facility NEGATED: Highlighted row Cognitive function [Interpretation] Cognitive status health issues are not documented Disease [facility] Work Phone: Clinical Notes 01-13-2021 to 04-19-2024 Donell Olivera APRN.CNP - 04/19/2024 11:13 AM EDTTelephone Encounter - Viry David LPN - 03/20/2024 11:23 AM EDTTelephone Encounter - Viry David LPN - 03/20/2024 11:23 AM EDT Note Date & Type Note Facility 04-19-2024 Note HNO ID: [id number] Author: DONELL OLIVERA APRN.MARY LOU Service: ? Author Type: Nurse Practitioner Type: Progress Notes Filed: 04/23/2024 22:31 Note Text: Norm Muro is a 78 year old female here today for rash. I reviewed past medical, surgical, social, and family histories today and updated chart. Allergies, chronic medications, and supplements were also reviewed. 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 GERD (gastroesophageal reflux disease) Glaucoma 10/2013 Angular glaucoma with laser bilaterally. Hypertension 1989 Vitamin D deficiency PAST SURGICAL HISTORY Procedure Laterality Date ANESTH, SECTION 1965 APPENDECTOMY ARTHRP ACETBLR/PROX FEM PROSTC AGRFT/ALGRFT 2010 CATARACT SURGERY, COMPLEX Bilateral 11/27/2019 DELIVERY ONLY 1964,1965 CHOLECYSTECTOMY HEART CATHETERIZATION 1999 LUMPECTOMY/RADIOTHERAPY DIAG MAMM/A10 OPEN MINI-LAPAROTOMY W/LYSIS ADHESIONS PAST SURGICAL HISTORY OF 10/2012 skin biopsy PAST SURGICAL HISTORY OF 10/2013 laser for angular glaucoma ROTATOR CUFF REPAIR right ALLERGIES Celecoxib, Mold, Pitavastatin, Sulfa (Sulfonamide Antibiotics), Tape [Adhesive Tape (Rosins)], and Vicodin [Hydrocodone-Acetaminophen] MEDICATIONS leflunomide (ARAVA) 10 mg tablet Take 0.5 tablets by mouth every afternoon. hydroCHLOROthiazide 12.5 mg tablet Take 1 tablet by mouth once daily cetirizine (ALLERGY RELIEF, CETIRIZINE,) 10 mg tablet Take 1 tablet by mouth once daily traMADol (ULTRAM) 50 mg tablet Take 50 mg by mouth three times a day as needed. predniSONE (DELTASONE) 20 mg tablet Take 2 tablets by mouth once daily. amLODIPine (NORVASC) 5 mg tablet Take 1 tablet by mouth once daily losartan (COZAAR) 100 mg tablet Take 1 tablet by mouth once daily omeprazole (PRILOSEC) 40 mg capsule Take 1 capsule by mouth once daily. venlafaxine (EFFEXOR) 75 mg tablet Take 1 tablet by mouth once daily. (Patient taking differently: Take 75 mg by mouth two times a day.) albuterol HFA (PROVENTIL HFA, VENTOLIN HFA) 90 mcg/actuation inhaler Inhale 2 Puffs as instructed every 4 hours as needed for wheezing/shortness of breath. hydrOXYchloroQUINE (PLAQUENIL) 200 mg tablet Take 200 mg by mouth two times a day. FAMILY HISTORY Problem Relation Age of Onset Hypertension Mother Cancer Mother Skin Diabetes Mother Hypertension Father Cancer Father Skin COPD Father Heart Father Diabetes Sister Hypertension Brother Hypertension Sister Social History Tobacco Use Smoking status: Former Current packs/day: 0.00 Average packs/day: 1 pack/day for 8.0 years (8.0 ttl pk-yrs) Types: Cigarettes Start date: 06/28/1972 Quit date: 06/28/1980 Years since quittin.8 Smokeless tobacco: Never Tobacco comments: No one in household smokes Substance Use Topics Alcohol use: No Drug use: No Review of Systems Constitutional: Negative for appetite change, chills, fatigue, fever and unexpected weight change. HENT: Negative for congestion, ear pain, rhinorrhea and sore throat. Eyes: Negative for pain, discharge, itching and visual disturbance. Respiratory: Negative for cough, shortness of breath and wheezing. Cardiovascular: Negative for chest pain, palpitations and leg swelling. Gastrointestinal: Negative for abdominal pain, constipation, diarrhea, nausea and vomiting. Genitourinary: Negative for difficulty urinating. Musculoskeletal: Positive for arthralgias and myalgias. Skin: Positive for rash. Neurological: Negative for dizziness, tremors, weakness and headaches. Psychiatric/Behavioral: Negative for dysphoric mood and sleep disturbance. The patient is not nervous/anxious. Objective BP 126/72 Pulse 85 Temp 98 Ht 5' 1.5 (1.56m) Wt 216 lb (98.0kg) SpO2 98% BMI 40.16 kg/(m2). Physical Exam Constitutional: Appearance: Normal appearance. She is not toxic-appearing or diaphoretic. HENT: Head: Normocephalic and atraumatic. Hair is normal. Right Ear: External ear normal. Left Ear: External ear normal. Nose: Nose normal. Mouth/Throat: Lips: [place]. No lesions. Mouth: Mucous membranes are moist. No oral lesions. Tongue: No lesions. Pharynx: Oropharynx is clear. Eyes: General: Lids are normal. Conjunctiva/sclera: Conjunctivae normal. Pupils: Pupils are equal, round, and reactive to light. Cardiovascular: Rate and Rhythm: Normal rate and regular rhythm. Heart sounds: Normal heart sounds. Pulmonary: Effort: Pulmonary e (more content not included)... [facility] 04-19-2024 History of Present illness Narrative Images from the original note were not included. Subjective Brandon Muro is a 78 year old female here today for rash. I reviewed past medical, surgical, social, and family histories today and updated chart. Allergies, chronic medications, and supplements were also reviewed. 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 GERD (gastroesophageal reflux disease) Glaucoma 10/2013 Angular glaucoma with laser bilaterally. Hypertension 1989 Vitamin D deficiency PAST SURGICAL HISTORY Procedure Laterality Date ANESTH, SECTION 1965 APPENDECTOMY ARTHRP ACETBLR/PROX FEM PROSTC AGRFT/ALGRFT 2010 CATARACT SURGERY, COMPLEX Bilateral 11/27/2019 DELIVERY ONLY 1965,1965 CHOLECYSTECTOMY HEART CATHETERIZATION 1999 LUMPECTOMY/RADIOTHERAPY DIAG MAMM/A10 OPEN MINI-LAPAROTOMY W/LYSIS ADHESIONS PAST SURGICAL HISTORY OF 10/2012 skin biopsy PAST SURGICAL HISTORY OF 10/2013 laser for angular glaucoma ROTATOR CUFF REPAIR right ALLERGIES Celecoxib, Mold, Pitavastatin, Sulfa (Sulfonamide Antibiotics), Tape [Adhesive Tape (Rosins)], and Vicodin [Hydrocodone-Acetaminophen] MEDICATIONS leflunomide (ARAVA) 10 mg tablet Take 0.5 tablets by mouth every afternoon. hydroCHLOROthiazide 12.5 mg tablet Take 1 tablet by mouth once daily cetirizine (ALLERGY RELIEF, CETIRIZINE,) 10 mg tablet Take 1 tablet by mouth once daily traMADol (ULTRAM) 50 mg tablet Take 50 mg by mouth three times a day as needed. predniSONE (DELTASONE) 20 mg tablet Take 2 tablets by mouth once daily. amLODIPine (NORVASC) 5 mg tablet Take 1 tablet by mouth once daily losartan (COZAAR) 100 mg tablet Take 1 tablet by mouth once daily omeprazole (PRILOSEC) 40 mg capsule Take 1 capsule by mouth once daily. venlafaxine (EFFEXOR) 75 mg tablet Take 1 tablet by mouth once daily. (Patient taking differently: Take 75 mg by mouth two times a day.) albuterol HFA (PROVENTIL HFA, VENTOLIN HFA) 90 mcg/actuation inhaler Inhale 2 Puffs as instructed every 4 hours as needed for wheezing/shortness of breath. hydrOXYchloroQUINE (PLAQUENIL) 200 mg tablet Take 200 mg by mouth two times a day. FAMILY HISTORY Problem Relation Age of Onset Hypertension Mother Cancer Mother Skin Diabetes Mother Hypertension Father Cancer Father Skin COPD Father Heart Father Diabetes Sister Hypertension Brother Hypertension Sister Social History Tobacco Use Smoking status: Former Current packs/day: 0.00 Average packs/day: 1 pack/day for 8.0 years (8.0 ttl pk-yrs) Types: Cigarettes Start date: 06/28/1972 Quit date: 06/28/1980 Years since quittin.8 Smokeless tobacco: Never Tobacco comments: No one in household smokes Substance Use Topics Alcohol use: No Drug use: No Review of Systems Constitutional: Negative for appetite change, chills, fatigue, fever and unexpected weight change. HENT: Negative for congestion, ear pain, rhinorrhea and sore throat. Eyes: Negative for pain, discharge, itching and visual disturbance. Respiratory: Negative for cough, shortness of breath and wheezing. Cardiovascular: Negative for chest pain, palpitations and leg swelling. Gastrointestinal: Negative for abdominal pain, constipation, diarrhea, nausea and vomiting. Genitourinary: Negative for difficulty urinating. Musculoskeletal: Positive for arthralgias and myalgias. Skin: Positive for rash. Neurological: Negative for dizziness, tremors, weakness and headaches. Psychiatric/Behavioral: Negative for dysphoric mood and sleep disturbance. The patient is not nervous/anxious. Objective BP 126/72 Pulse 85 Temp 98 Ht 5' 1.5 (1.56m) Wt 216 lb (98.0kg) SpO2 98% BMI 40.16 kg/(m^2). Physical Exam Constitutional: Appearance: Normal appearance. She is not toxic-appearing or diaphoretic. HENT: Head: Normocephalic and atraumatic. Hair is normal. Right Ear: External ear normal. Left Ear: External ear normal. Nose: Nose normal. Mouth/Throat: Lips: [place]. No lesions. Mouth: Mucous membranes are moist. No oral lesions. Tongue: No lesions. Pharynx: Oropharynx is clear. Eyes: General: Lids are normal. Conjunctiva/sclera: Conjunctivae normal. Pupils: Pupils are equal, round, and reactive to light. Cardiovascular: Rate and Rhythm: Normal rate and regular rhythm. Heart sounds: Normal heart sounds. Pulmonary: Effort: Pulmonary effort is normal. Breath sounds: Normal breath sounds. Musculoskeletal: Cervical back: Normal range of motion and neck supple. Lymphadenopathy: Cervical: No cervical adenopathy. Skin: General: Skin is warm and dry. Coloration: Skin is not pale. Findings: Rash present. No erythema. Nails: There is no clubbing. Neurological: Mental Status: She is alert and oriented to person, place, and time. Psychiatric: Mood and Affect: Mood normal. Behavior: Behavior normal. Behavior is cooperative. Thought Content: Thought content normal. Judgment: Judgment normal. ASSESSMENT/PLAN: 1. Herpes zoster without complication - ICD9: 053.9, ICD10: B02.9 Start valacyclovir Has not tolerated gabapentin in the past She has tramadol at home to take as needed Follow up for worsening or persistent symptoms. - VALACYCLOVIR 1 GRAM TABLET Appt with [facility] PCP in November Donell Olivera APRN.PROGRAM ADMINISTRATOR documented in this encounter [facility] 03-20-2024 Miscellaneous Notes Pharmacy requesting refills as follows: Last Office Visit:02/22/2024 Next Office Visit: No future apt Requested Prescriptions Pending Prescriptions Disp Refills hydroCHLOROthiazide 12.5 mg tablet [Pharmacy Med Name: hydroCHLOROthiazide 12.5 MG Oral Tablet] 90 tablet 0 Sig: Take 1 tablet by mouth once daily ALLERGY RELIEF, CETIRIZINE, 10 mg tablet [Pharmacy Med Name: EQ Allergy Relief (Cetirizine) 10 MG Oral Tablet] 90 tablet 0 Sig: Take 1 tablet by mouth once daily Please review and advise. Viry David LPN documented in this encounter [facility] 03-20-2024 Telephone encounter Note Pharmacy requesting refills as follows: Last Office Visit:02/22/2024 Next Office Visit: No future apt Requested Prescriptions Pending Prescriptions Disp Refills hydroCHLOROthiazide 12.5 mg tablet [Pharmacy Med Name: hydroCHLOROthiazide 12.5 MG Oral Tablet] 90 tablet 0 Sig: Take 1 tablet by mouth once daily ALLERGY RELIEF, CETIRIZINE, 10 mg tablet [Pharmacy Med Name: EQ Allergy Relief (Cetirizine) 10 MG Oral Tablet] 90 tablet 0 Sig: Take 1 tablet by mouth once daily Please review and advise. Viry David LPN [facility] 02-22-2024 Note HNO ID: [id number] Author: PILAR FERRER APRN.PROGRAM ADMINISTRATOR Service: ? Author Type: Nurse Practitioner Type: Progress Notes Filed: 02/22/2024 08:46 Note Text: This note was created using N-Trig. Subjective Brandon Muro is a 78 year old female here today for acute visit for right wrist and right ankle pain. Right Wrist pain: started 3-4 wks ago. Medial aspect wrist. Pain is constant aching with episodic shooting, stabbing pain. Starts in wrist and radiates to mid forearm and down into her 5th digit. Denies numbness or tingling, injury. She has tried tramadol she takes for her lupus and states it does not help. Tylenol does not help either. Denies precipitating or relieving factors. States the shooting pain can occur anytime at rest or with movement. Sharp pain is quick and ends quickly. Denies injury or swelling or redness Right ankle pain: reports similar pain as her wrist. Started in September. Starts front of ankle and radiates towards her toes. This has been occurring on and off since September. Pain is not continuous. States it occurs when she moves her foot toward her body. Aching with occasional sharp stabbing pain. Resolves on its own. Denies precipitating or relieving factors. Can occur anytime and resolves on its own. Denies injury, swelling, redness, numbness or tingling ALLERGIES Allergen Reactions Celecoxib Other: See Comments Mold Unknown Pitavastatin Other: See Comments Drug induced lupus. Sulfa (Sulfonamide * Unknown Took for bladder infection and infection became worse. Tape [Adhesive Tape* Rash Vicodin [Hydrocodon* GI Upset Current Outpatient Medications Medication Sig Dispense Refill traMADol (ULTRAM) 50 mg tablet Take 50 mg by mouth three times a day as needed. amLODIPine (NORVASC) 5 mg tablet Take 1 tablet by mouth once daily 90 tablet 0 losartan (COZAAR) 100 mg tablet Take 1 tablet by mouth once daily 90 tablet 0 omeprazole (PRILOSEC) 40 mg capsule Take 1 capsule by mouth once daily. 90 capsule 3 venlafaxine (EFFEXOR) 75 mg tablet Take 1 tablet by mouth once daily. 90 tablet 3 albuterol HFA (PROVENTIL HFA, VENTOLIN HFA) 90 mcg/actuation inhaler Inhale 2 Puffs as instructed every 4 hours as needed for wheezing/shortness of breath. 1 Each 5 hydroCHLOROthiazide 12.5 mg tablet Take 1 tablet by mouth once daily 90 tablet 1 ALLERGY RELIEF, CETIRIZINE, 10 mg tablet Take 1 tablet by mouth once daily 90 tablet 1 hydrOXYchloroQUINE (PLAQUENIL) 200 mg tablet Take 200 mg by mouth two times a day. benzonatate (TESSALON PERLES) 100 mg capsule Take 1 capsule by mouth three times a day as needed for cough. (Patient not taking: Reported on 02/22/2024) 45 capsule 0 No current facility-administered medications for this visit. ACTIVE PROBLEM LIST Chronic Cough Allergic Rhinitis Hyperlipidemia Hypertension Abnormal Ecg Mild Aortic Stenosis Obesity (Bmi 35.0-39.9 Without Comorbidity) Anxiety and Depression Stage 3 Chronic Kidney Disease (Hcc) PAST MEDICAL HISTORY No date: Allergic rhinitis No date: DJD (degenerative joint disease) Comment: in the spine and knees 10/2012: Drug-induced lupus erythematosus Comment: Pitavastatin (livalo). 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 1989: Hypertension No date: Vitamin D deficiency PAST SURGICAL HISTORY 1965: ANESTH, SECTION No date: APPENDECTOMY 2011: ARTHRP ACETBLR/PROX FEM PROSTC AGRFT/ALGRFT 11/27/2019: CATARACT SURGERY, COMPLEX; Bilateral No date: DELIVERY ONLY Comment: 1964,1965 No date: CHOLECYSTECTOMY 1999: HEART CATHETERIZATION No date: LUMPECTOMY/RADIOTHERAPY DIAG MAMM/A10 No date: OPEN MINI-LAPAROTOMY W/LYSIS ADHESIONS 10/2012: PAST SURGICAL HISTORY OF Comment: skin biopsy 10/2013: PAST SURGICAL HISTORY OF Comment: laser for angular glaucoma No date: ROTATOR CUFF REPAIR Comment: right Social History Tobacco Use Smoking status: Former Current packs/day: 0.00 Average packs/day: 1 pack/day for 8.0 years (8.0 ttl pk-yrs) Types: Cigarettes Start date: 06/28/1972 Quit date: 06/28/1980 Years since quittin.6 Smokeless tobacco: Never Tobacco comments: No one in household smokes Substance Use Topics Alcohol use: No Drug use: No Family History Problem Relation Age of Onset Hypertension Mother Cancer Mother Skin Diabetes Mother Hypertension Father Cancer Father Skin COPD Father Heart Father Diabetes Sister Hypertension Brother Hypertension Sister Review of Systems Constitutional: Negative for chills, fatigue and fever. Respiratory: Negative for cough, shortness of breath and wheezing. Cardiovascular: Negative for chest pain, palpitations and leg swelling. Musculoskeletal: Positive for arthralgias and myalgias. See HPI Neurological: Negative for dizziness and headaches. Objective BP 120/72 Pulse 76 Resp 16 Ht 156.2 cm (5' 1.5 (more content not included)... [facility] 02-22-2024 History of Present illness Narrative Images from the original note were not included. This note was created using N-Trig. Subjective Brandon Muro is a 78 year old female here today for acute visit for right wrist and right ankle pain. Right Wrist pain: started 3-4 wks ago. Medial aspect wrist. Pain is constant aching with episodic shooting, stabbing pain. Starts in wrist and radiates to mid forearm and down into her 5th digit. Denies numbness or tingling, injury. She has tried tramadol she takes for her lupus and states it does not help. Tylenol does not help either. Denies precipitating or relieving factors. States the shooting pain can occur anytime at rest or with movement. Sharp pain is quick and ends quickly. Denies injury or swelling or redness Right ankle pain: reports similar pain as her wrist. Started in September. Starts front of ankle and radiates towards her toes. This has been occurring on and off since September. Pain is not continuous. States it occurs when she moves her foot toward her body. Aching with occasional sharp stabbing pain. Resolves on its own. Denies precipitating or relieving factors. Can occur anytime and resolves on its own. Denies injury, swelling, redness, numbness or tingling ALLERGIES Allergen Reactions Celecoxib Other: See Comments Mold Unknown Pitavastatin Other: See Comments Drug induced lupus. Sulfa (Sulfonamide * Unknown Took for bladder infection and infection became worse. Tape [Adhesive Tape* Rash Vicodin [Hydrocodon* GI Upset Current Outpatient Medications Medication Sig Dispense Refill traMADol (ULTRAM) 50 mg tablet Take 50 mg by mouth three times a day as needed. amLODIPine (NORVASC) 5 mg tablet Take 1 tablet by mouth once daily 90 tablet 0 losartan (COZAAR) 100 mg tablet Take 1 tablet by mouth once daily 90 tablet 0 omeprazole (PRILOSEC) 40 mg capsule Take 1 capsule by mouth once daily. 90 capsule 3 venlafaxine (EFFEXOR) 75 mg tablet Take 1 tablet by mouth once daily. 90 tablet 3 albuterol HFA (PROVENTIL HFA, VENTOLIN HFA) 90 mcg/actuation inhaler Inhale 2 Puffs as instructed every 4 hours as needed for wheezing/shortness of breath. 1 Each 5 hydroCHLOROthiazide 12.5 mg tablet Take 1 tablet by mouth once daily 90 tablet 1 ALLERGY RELIEF, CETIRIZINE, 10 mg tablet Take 1 tablet by mouth once daily 90 tablet 1 hydrOXYchloroQUINE (PLAQUENIL) 200 mg tablet Take 200 mg by mouth two times a day. benzonatate (TESSALON PERLES) 100 mg capsule Take 1 capsule by mouth three times a day as needed for cough. (Patient not taking: Reported on 02/22/2024) 45 capsule 0 No current facility-administered medications for this visit. ACTIVE PROBLEM LIST Chronic Cough Allergic Rhinitis Hyperlipidemia Hypertension Abnormal Ecg Mild Aortic Stenosis Obesity (Bmi 35.0-39.9 Without Comorbidity) Anxiety and Depression Stage 3 Chronic Kidney Disease (Hcc) PAST MEDICAL HISTORY No date: Allergic rhinitis No date: DJD (degenerative joint disease) Comment: in the spine and knees 10/2012: Drug-induced lupus erythematosus Comment: Pitavastatin (livalo). 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 1989: Hypertension No date: Vitamin D deficiency PAST SURGICAL HISTORY 1965: ANESTH, SECTION No date: APPENDECTOMY 2011: ARTHRP ACETBLR/PROX FEM PROSTC AGRFT/ALGRFT 11/27/2019: CATARACT SURGERY, COMPLEX; Bilateral No date: DELIVERY ONLY Comment: 1964,1965 No date: CHOLECYSTECTOMY 2000: HEART CATHETERIZATION No date: LUMPECTOMY/RADIOTHERAPY DIAG MAMM/A10 No date: OPEN MINI-LAPAROTOMY W/LYSIS ADHESIONS 10/2012: PAST SURGICAL HISTORY OF Comment: skin biopsy 10/2013: PAST SURGICAL HISTORY OF Comment: laser for angular glaucoma No date: ROTATOR CUFF REPAIR Comment: right Social History Tobacco Use Smoking status: Former Current packs/day: 0.00 Average packs/day: 1 pack/day for 8.0 years (8.0 ttl pk-yrs) Types: Cigarettes Start date: 06/28/1972 Quit date: 06/28/1980 Years since quittin.6 Smokeless tobacco: Never Tobacco comments: No one in household smokes Substance Use Topics Alcohol use: No Drug use: No Family History Problem Relation Age of Onset Hypertension Mother Cancer Mother Skin Diabetes Mother Hypertension Father Cancer Father Skin COPD Father Heart Father Diabetes Sister Hypertension Brother Hypertension Sister Review of Systems Constitutional: Negative for chills, fatigue and fever. Respiratory: Negative for cough, shortness of breath and wheezing. Cardiovascular: Negative for chest pain, palpitations and leg swelling. Musculoskeletal: Positive for arthralgias and myalgias. See HPI Neurological: Negative for dizziness and headaches. Objective BP 120/72 Pulse 76 Resp 16 Ht 156.2 cm (5' 1.5 ) Wt 96.2 kg (212 lb) SpO2 98% BMI 39.41 kg/m Physical Exam Vitals and nursing note reviewed. Constitutional: General: She is not in acute distress. Appearance: She is obese. She is not ill-appearing. HENT: Head: Normocephalic and atraumatic. Cardiovascular: Rate and Rhythm: Normal rate and regular rhythm. Pulses: Normal pulses. Dorsalis pedis pulses are 2+ on the right side and 2+ on the left side. Posterior tibial pulses are 2+ on the right side and 2+ on the left side. Heart sounds: S1 normal and S2 normal. Murmur heard. Systolic murmur is present with a grade of 3/6. Pulmonary: Effort: Pulmonary effort is normal. No respiratory distress. Breath sounds: Normal breath sounds. No wheezing or rhonchi. Musculoskeletal: Right wrist: Tenderness present. No swelling, deformity, bony tenderness, snuff box tenderness or crepitus. Left wrist: Normal. Arms: Right lower leg: No edema. Left lower leg: No edema. Right foot: Normal range of motion. No deformity. Left foot: Normal range of motion. No deformity. Comments: Negative phalens, and tinels Pain with movement Feet: Right foot: Skin integrity: Skin integrity normal. Left foot: Skin integrity: Skin integrity normal. Comments: No significant tenderness No redness no swelling Skin: General: Skin is warm and dry. Capillary Refill: Capillary refill takes more than 3 seconds. Neurological: Mental Status: She is alert and oriented to person, place, and time. Psychiatric: Mood and Affect: Mood normal. Behavior: Behavior normal. Thought Content: Thought content normal. Judgment: Judgment normal. ASSESSMENT/PLAN: 1. Right wrist pain - ICD9: 719.43, ICD10: M25.531 (primary diagnosis) - possible tendonitis. DD CTS. Unable to take NSAIDS. Will start prednisone. Referral to ortho for evaluation and management. - wrist splint, ice alternating with heat as needed - PREDNISONE 20 MG TABLET - CONSULT TO ORTHOPAEDICS 2. Chronic pain of right ankle - ICD9: 719.47, 338.29, ICD10: M25.571, G89.29 - see above. Exam unremarkable. DD tendonitis. Will trial prednisone. Referral to ortho for evaluation and mangement - PREDNISONE 20 MG TABLET - CONSULT TO ORTHOPAEDICS Pilar Ferrer APRN.PROGRAM ADMINISTRATOR documented in this encounter [facility] 01-27-2024 Telephone encounter Note pharmacy electronically requesting refills as follows: Last seen 11/30/23 . Last refill 11/02/23 . Requested Prescriptions Pending Prescriptions Disp Refills amLODIPine (NORVASC) 5 mg tablet [Pharmacy Med Name: amLODIPine Besylate 5 MG Oral Tablet] 90 tablet 0 Sig: Take 1 tablet by mouth once daily Please review and advise. Kylie Lee MA [facility] 01-27-2024 Miscellaneous Notes pharmacy electronically requesting refills as follows: Last seen 11/30/23 . Last refill 11/02/23 . Requested Prescriptions Pending Prescriptions Disp Refills amLODIPine (NORVASC) 5 mg tablet [Pharmacy Med Name: amLODIPine Besylate 5 MG Oral Tablet] 90 tablet 0 Sig: Take 1 tablet by mouth once daily Please review and advise. Kylie Lee MA documented in this encounter [facility] 01-26-2024 Telephone encounter Note pharmacy electronically requesting refills as follows: Last seen 11/30/23 . Last refill 11/02/23 . Requested Prescriptions Pending Prescriptions Disp Refills losartan (COZAAR) 100 mg tablet [Pharmacy Med Name: Losartan Potassium 100 MG Oral Tablet] 90 tablet 0 Sig: Take 1 tablet by mouth once daily Please review and advise. Kylie Lee MA [facility] 01-26-2024 Miscellaneous Notes pharmacy electronically requesting refills as follows: Last seen 11/30/23 . Last refill 11/02/23 . Requested Prescriptions Pending Prescriptions Disp Refills losartan (COZAAR) 100 mg tablet [Pharmacy Med Name: Losartan Potassium 100 MG Oral Tablet] 90 tablet 0 Sig: Take 1 tablet by mouth once daily Please review and advise. Kylie Lee MA documented in this encounter [facility] 12-16-2023 Miscellaneous Notes Called pt let her know the results and instructed to have Dr. Patrick to send us the results of her lab work Danielito Montenegro MA Called pt left VM for her to call the office back regarding results Danielito Montenegro MA ----- Message from Pilar Ferrer APRN.PROGRAM ADMINISTRATOR sent at 12/05/2023 6:14 PM EDT ----- Xray of clavicle unremarkable. No concerning findings. IMPRESSION IMPRESSION: No acute radiographic abnormality. The sternoclavicular joints are difficult to assess because of overlapping bony structures. If there is concern for abnormality in this location, CT is suggested. Called pt left VM for her to call the office back for results Danielito Montenegro MA ----- Message from Pilar Ferrer APRN.PROGRAM ADMINISTRATOR sent at 12/01/2023 6:53 AM EDT ----- Vit D wnl Called pt left VM for her to call the office back for results Danielito Montenegro MA ----- Message from Pilar Ferrer APRN.PROGRAM ADMINISTRATOR sent at 11/30/2023 12:31 PM EDT ----- Lipids TC and LDL mildly elevated. Decrease fat, increase exercise CMP sugar increased from last year. Decrease sugar, carbs and daily exercise to help slow progression to diabetes , creatinine is elevated. Indicator of kidney fxn. We need to recheck this. I know she is to have labs with Melanie later this month. Please have her send me results CBC and tsh wnl documented in this encounter [facility] 12-16-2023 Telephone encounter Note Called pt let her know the results and instructed to have Dr. Patrick to send us the results of her lab work Danielito Montenegro MA [facility] 12-08-2023 Telephone encounter Note Called pt left for her to call the office back regarding results Danielito Montenegro MA [facility] 12-08-2023 Telephone encounter Note ----- Message from Pilar Ferrer APRN.PROGRAM ADMINISTRATOR sent at 12/05/2023 6:14 PM EDT ----- Xray of clavicle unremarkable. No concerning findings. IMPRESSION IMPRESSION: No acute radiographic abnormality. The sternoclavicular joints are difficult to assess because of overlapping bony structures. If there is concern for abnormality in this location, CT is suggested. [facility] 12-01-2023 Telephone encounter Note Called pt left for her to call the office back for results Danielito Montenegro MA [facility] 12-01-2023 Telephone encounter Note ----- Message from Pilar Ferrer APRN.PROGRAM ADMINISTRATOR sent at 12/01/2023 6:53 AM EDT ----- Vit D ochoal T [facility] 12-01-2023 Telephone encounter Note Patient requesting refills as follows: Last Office Visit 11/30/23 NOV none. Last Refill 08/17/23. Requested Prescriptions Pending Prescriptions Disp Refills omeprazole (PRILOSEC) 40 mg capsule 90 capsule 0 Sig: Take 1 capsule by mouth once daily. Please review and advise. Michelle Arzate MA T [facility] 12-01-2023 Miscellaneous Notes Patient requesting refills as follows: Last Office Visit 11/30/23 NOV none. Last Refill 08/17/23. Requested Prescriptions Pending Prescriptions Disp Refills omeprazole (PRILOSEC) 40 mg capsule 90 capsule 0 Sig: Take 1 capsule by mouth once daily. Please review and advise. Michelle Arzate MA documented in this encounter [facility] 11-30-2023 Telephone encounter Note Called pt left VM for her to call the office back for results Danielito Montenegro MA [facility] 11-30-2023 Telephone encounter Note ----- Message from Pilar Ferrer APRN.PROGRAM ADMINISTRATOR sent at 11/30/2023 12:31 PM EDT ----- Lipids TC and LDL mildly elevated. Decrease fat, increase exercise CMP sugar increased from last year. Decrease sugar, carbs and daily exercise to help slow progression to diabetes , creatinine is elevated. Indicator of kidney fxn. We need to recheck this. I know she is to have labs with Melanie later this month. Please have her send me results CBC and tsh wnl [facility] 11-30-2023 Instructions Pilar Ferrer APRN.PROGRAM ADMINISTRATOR - 11/30/2023 10:24 AM EDT Screening schedule The following prevention plan is recommended: DTaP,Tdap,Td Vaccine(1 - Tdap) Never done Shingrix Vaccine(1 of 2) Never done RSV Vaccine(1 - 1-dose 60+ series) Never done BP Controlled (<130/80) due on 05/14/2022 Covid-19 Vaccine( - 2022-24 season) Never done Annual PCP Team Chronic Disease Visit due on 10/01/2023 Hemoglobin/Hematocrit due on 10/22/2023 WHAT YOU CAN DO TO PREVENT FALLS Many falls can be prevented. By making some changes, you can lower your chances of falling. Four things YOU can do to prevent falls for you* and your caregiver 1. Begin a regular exercise program Exercise is one of the most important ways to lower your chances of falling. It makes you stronger and helps you feel better. Exercises that improve balance and coordination (like Sergei Chi) are the most helpful. Lack of exercise leads to weakness and increases your chances of falling. Ask your doctor or health care provider about the best type of exercise program for you. 2. Have your health care provider review your medicines Have your doctor or pharmacist review all the medicines you take, even [id number] medicines. As you get older, the way medicines work in your body can change. Some medicines, or combinations of medicines, can make you sleepy or dizzy and can cause you to fall. 3. Have your vision checked Have your eyes checked by an eye doctor at least once a year. You may be wearing the wrong glasses or have a condition like glaucoma or cataracts that limits your vision. Poor vision can increase your chances of falling. 4. Make your home safer About half of all falls happen at home. To make your home safer: Remove things you can trip over (like papers, books, clothes, and shoes) from stairs and places where you walk. Remove small throw rugs or use double-sided tape to keep the rugs from slipping. Keep items you use often in cabinets you can reach easily without using a step stool. Have grab bars put in next to your toilet and in the tub or shower. Use non-slip mats in the bathtub and on shower floors. Improve the lighting in your home. As you get older, you need brighter lights to see well. Hang light-weight curtains or shades to reduce glare. Have handrails and lights put in on all staircases. Wear shoes both inside and outside the house. Avoid going barefoot or wearing slippers. For more information, contact: Centers for Disease Control and Prevention www.cdc.gov/injury * This information may not apply if you have certain medical conditions. BONE MINERAL DENSITY PATIENT INSTRUCTIONS ======= Bone mineral density testing measures the amount of calcium in certain parts of your bones. This information determines how strong your bones are. The test is used to detect osteoporosis, a disease in which the bone's mineral content and density are low, increasing a person's risk of fractures. The lumbar spine (lower back) and the hip are the skeletal sites usually examined. For the test, remember that: 1. You cannot take this test if you are . 2. Eat a normal diet on the day of the test. 3. Take your medications as you normally would. 4. DO NOT take calcium supplements (such as Tums) for 24 hours before the test. 5. On the day of the test, leave valuables (jewelry or credit cards) at home. 6. The test should be performed prior to oral, rectal or IV contrast studies, or at least 7 days after any of these studies. For the test, you may be asked to wear a hospital gown. You will lie on your back, on a padded table, in a comfortable position. Generally, you can resume your usual activities immediately. documented in this encounter [facility] 11-30-2023 Note HNO ID: [id number] Author: PILAR FERRER APRN.MARY LOU Service: ? Author Type: Nurse Practitioner Type: Progress Notes Filed: 11/30/2023 13:24 Note Text: Brandon Muro is a 78 year old female here for a Medicare wellness visit. PMH HTN, lupus, allergies, anxiety, depression, aortic stenosis. Patient denies changes in health since last office visit. Reports feeling well. Denies concerns or complaints today. I reviewed patients past medical, surgical, social, and family histories today and updated chart. Allergies, chronic medications, and supplements were also reviewed and list is now up to date. HTN: Ms. Muro indicates that she is feeling well and denies any symptoms referable to elevated blood pressure. Specifically denies headache, chest pain, palpitations, dyspnea, peripheral edema, claudication symptoms, orthopnea, fatigue, and PND. Patient denies any side effects of her medication(s) and is compliant with their regimen. She does not check BP's generally. Brandon works out regularly 2-3 times per week with walking and pool work out. She watches her diet for sodium, low fat and low cholesterol some of the time. She is taking norvasc 5 mg, losartan 100 mg daily, HCTZ 12.5 mg daily. Lupus: She is seeing Dr Rios for management. At last office visit on 01/30/[address]aqu[address] Rios also had pt decrease HCTZ due to increase in creatinine. Depression and anxiety: she is taking Effexor daily for management. She reports her symptoms have been well managed with Effexor. She was started on Effexor after her in 2017. States anxiety has been controlled with effexor. 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 She reports she really enjoys going and keeps her mind off things.Denies feeling depressed or thoughts of suicide. reports if she misses doses she can tell and feels anxious. Reports she met a real nice man and states she hands out with him a lot. States this has helped her depression. He has a 50 yo disabled child that he cares for. She feels they have been a blessing to her. Aortic stenosis: reports having murmur for years. Last echo 2015. Denies symptoms. She is seeing DR Steinberg cardiology [facility]. She was last seen 08/25/23. She has follow up in December. Last echo 06/19 per patient Allergies: environmental, chronic. She is using flonase and allergy medication daily. Reports when her allergies are really bad she will use her albuterol inhaler due to feeling SOB which helps with her symptoms. She is former smoker as well. CKD: She has history renal insuffiency and was seeing Dr Tyson in [place]. States she was taking medication for arthritis and once she went off it her kidneys improved. Preventative: she had colonoscopy with Dr Quinones in August 2022. Reports small hemorrhoids. Reports she was told she does not need another one. She never received her COVID vaccines and is not interested in this. Some elements of above documentation were copied from my progress note of 09/30/22 and have been reexamined and updated where appropriate. All elements reflect the current assessment and medical decision making today . Medicare Health Risk Assessment General Health Good Exercise: Minutes/Day 0 min Exercise: Days/Week 0 days Alcohol: Daily Use Never Alcohol: Drinks/Day Patient does not drink Alcohol: 6 or more drinks Never Feel off balance Denies, Concerns: Teeth/Dentures Partial no problems Concerns: Sexual function Denies Troubled by feelings Rarely occurs. Treated with medication Frequency: Eating healthy diet daily ADLs requiring help none Safety precautions in home/vehicle Always Smoke, vape, chews tobacco Denies Difficulty hearing Yes wears hearing aides Difficulty seeing Yes, wears glasses Current Providers Specialists: I have reviewed specialist-related care of the patient in the medical record. Current care team: Patient Care Team: Pilar Ferrer APRN.PROGRAM ADMINISTRATOR as PCP - General (Internal Medicine) Jenise Rios (Rheumatology) Taniya Tyson I, DO (Nephrology) Houston Gonzalez Sr. (Ent - Otolaryngology) Medical/Family history review Reviewed and updated problem list, medical/surgical/family/social history, medications, and allergies. Opioid use review Opioid Medications (last 90 days) No data to display Anxiety/Depression screening PHQ-9 Score: 5 (Mild Depression) GARRY-7 Score: 7 (Mild Anxiety) Recommendation: no further intervention at this time Cognitive screening Mini Cog Score: 5 Cognitive screening reviewed and No further action needed (score 3-5). Functional Observation Was the patient's Timed Up AND Go test unsteady or ? 12 seconds? No Advance Care Planning Surrogate decision maker and/or advance care plan documented Measurements BP 128/76 Pulse 82 Temp (Src) 98.2 (Oral) Resp 18 Ht 5' 1.5 (more content not included)... [facility] 11-30-2023 History of Present illness Narrative Images from the original note were not included. Brandon Muro is a 78 year old female here for a Medicare wellness visit. PMH HTN, lupus, allergies, anxiety, depression, aortic stenosis. Patient denies changes in health since last office visit. Reports feeling well. Denies concerns or complaints today. I reviewed patients past medical, surgical, social, and family histories today and updated chart. Allergies, chronic medications, and supplements were also reviewed and list is now up to date. HTN: Ms. Muro indicates that she is feeling well and denies any symptoms referable to elevated blood pressure. Specifically denies headache, chest pain, palpitations, dyspnea, peripheral edema, claudication symptoms, orthopnea, fatigue, and PND. Patient denies any side effects of her medication(s) and is compliant with their regimen. She does not check BP's generally. Brandon works out regularly 2-3 times per week with walking and pool work out. She watches her diet for sodium, low fat and low cholesterol some of the time. She is taking norvasc 5 mg, losartan 100 mg daily, HCTZ 12.5 mg daily. Lupus: She is seeing Dr Rios for management. At last office visit on 01/30/20 her Plaquenil [address] Rios also had pt decrease HCTZ due to increase in creatinine. Depression and anxiety: she is taking Effexor daily for management. She reports her symptoms have been well managed with Effexor. She was started on Effexor after her in 2016. States anxiety has been controlled with effexor. 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 She reports she really enjoys going and keeps her mind off things.Denies feeling depressed or thoughts of suicide. reports if she misses doses she can tell and feels anxious. Reports she met a real nice man and states she hands out with him a lot. States this has helped her depression. He has a 50 yo disabled child that he cares for. She feels they have been a blessing to her. Aortic stenosis: reports having murmur for years. Last echo 2015. Denies symptoms. She is seeing DR Steinberg cardiology [facility]. She was last seen 08/25/23. She has follow up in December. Last echo 06/19 per patient Allergies: environmental, chronic. She is using flonase and allergy medication daily. Reports when her allergies are really bad she will use her albuterol inhaler due to feeling SOB which helps with her symptoms. She is former smoker as well. CKD: She has history renal insuffiency and was seeing Dr Tyson in [place]. States she was taking medication for arthritis and once she went off it her kidneys improved. Preventative: she had colonoscopy with Dr Quinones in August 2022. Reports small hemorrhoids. Reports she was told she does not need another one. She never received her COVID vaccines and is not interested in this. Some elements of above documentation were copied from my progress note of 09/30/22 and have been reexamined and updated where appropriate. All elements reflect the current assessment and medical decision making today . Medicare Health Risk Assessment General Health Good Exercise: Minutes/Day 0 min Exercise: Days/Week 0 days Alcohol: Daily Use Never Alcohol: Drinks/Day Patient does not drink Alcohol: 6 or more drinks Never Feel off balance Denies, Concerns: Teeth/Dentures Partial no problems Concerns: Sexual function Denies Troubled by feelings Rarely occurs. Treated with medication Frequency: Eating healthy diet daily ADLs requiring help none Safety precautions in home/vehicle Always Smoke, vape, chews tobacco Denies Difficulty hearing Yes wears hearing aides Difficulty seeing Yes, wears glasses Current Providers Specialists: I have reviewed specialist-related care of the patient in the medical record. Current care team: Patient Care Team: Pilar Ferrer APRN.PROGRAM ADMINISTRATOR as PCP - General (Internal Medicine) Jenise Rios (Rheumatology) Taniya Tyson I, DO (Nephrology) Houston Gonzalez Sr. (Ent - Otolaryngology) Medical/Family history review Reviewed and updated problem list, medical/surgical/family/social history, medications, and allergies. Opioid use review Opioid Medications (last 90 days) No data to display Anxiety/Depression screening PHQ-9 Score: 5 (Mild Depression) GARRY-7 Score: 7 (Mild Anxiety) Recommendation: no further intervention at this time Cognitive screening Mini Cog Score: 5 Cognitive screening reviewed and No further action needed (score 3-5). Functional Observation Was the patient's Timed Up & Go test unsteady or ? 12 seconds? No Advance Care Planning Surrogate decision maker and/or advance care plan documented Measurements BP 128/76 Pulse 82 Temp (Src) 98.2 (Oral) Resp 18 Ht 5' 1.5 (1.56m) Wt 212 lb (96.2kg) SpO2 98% BMI 39.41 kg/(m^2). Vision Screening: Follows with optometry/ophthalmology Right: 20/30 Left: 20/ 30 Both: 20/25 Hearing loss: bilateral hearing aides. She reports having loss of hearing left ear. She is seeing ENT. No improvement in hearing. He felt it was a virus. Assessment/Plan Medicare annual wellness visit, subsequent (Z00.00) - Counseled on healthy diet and regular exercise - Fall avoidance information provided - Personalized prevention plan provided - Discussed need for and benefit of weight loss. BMI 39.41 kg/(m^2) Additional Concerns The following concerns were also discussed with the patient: Cough x 2 months. She reports it is getting better. Non productive. She reports deformity left clavicle. Chronic, PHYSICAL EXAM BP 128/76 (BP Site: Right Arm, BP Position: Sitting, BP Cuff Size: Large Adult) Pulse 82 Temp 36.8 C (98.2 F) (Oral) Resp 18 Ht 156.2 cm (5' 1.5 ) Wt 96.2 kg (212 lb) SpO2 98% BMI 39.41 kg/m GENERAL: well appearing, alert, in no acute distress CARDIOVASCULAR: systolic murmur present PULMONARY: clear to auscultation, no wheezing, rhonchi, or crackles ABDOMEN: soft, non-tender, non-distended, no masses or organomegaly EXTREMITY: no lower extremity edema. No skin discoloration. ASSESSMENT/PLAN: 1. Medicare annual wellness visit, subsequent - ICD9: V70.0, ICD10: Z00.00 (primary diagnosis) - Counseled on healthy diet and regular exercise - Discussed need and benefit for weight loss. BMI 39.41 kg/(m^2) - Mammogram ordered - exam recommended once yearly - Bone mineral density ordered - Counseled patient on limiting alcohol intake to 1 drink per day - Discussed safe sex practices and avoidance of STIs 2. Primary hypertension - ICD9: 401.9, ICD10: I10 - Controlled - Continue current medications - Recommend home blood pressure monitoring, to bring results to next visit - Encouraged sodium restriction, DASH or Mediterranean diet - Recommend regular aerobic exercise - Discussed need for and benefit of weight loss. BMI 39.41 kg/(m^2) - Reviewed risks of hypertension and principles of treatment - COMPLETE BLOOD COUNT - COMPREHENSIVE METABOLIC PANEL 3. Anxiety and depression - ICD9: 300.00, 311, ICD10: F41.9, F32.A - chronic stable. Continue effexor as ordered. 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 There is noted slight defromity on exam. No tenderness. Will check xray - XR CLAVICLE 2V LEFT - XR CLAVICLE 2V RIGHT 5. Allergic rhinitis, unspecified seasonality, unspecified trigger - ICD9: 477.9, ICD10: J30.9 - chronic stable. Allergy related symptoms. She requests refill on her inhaler that she uses more during allergy season. - ALBUTEROL SULFATE HFA 90 MCG/ACTUATION AEROSOL INHALER 6. Stage 3 chronic kidney disease, unspecified whether stage 3a or 3b CKD (HCC) - ICD9: 585.3, ICD10: N18.30 - eGFR: 43 Stable - Counseled on avoiding NSAIDs, adequate hydration - Counseled on low sodium diet 7. Mixed hyperlipidemia - ICD9: 272.2, ICD10: E78.2 - Control undetermined, due for labs - Continue current medications - Counseled on healthy diet and regular exercise - Discussed need for and benefit of weight loss. BMI 39.41 kg/(m^2) - LIPID PANEL BASIC 8. Vitamin D deficiency - ICD9: 268.9, ICD10: E55.9 - VITAMIN D 25 HYDROXY 9. Post-menopausal - ICD9: V49.81, ICD10: Z78.0 - DXA-AXIAL SKELETON 10. Screening for thyroid disorder - ICD9: V77.0, ICD10: Z13.29 - THYROID STIMULATING HORMONE 11. Encounter for screening mammogram for malignant neoplasm of breast - ICD9: V76.12, ICD10: Z12.31 - ROSA ISELA SCREENING Pilar Ferrer APRN.PROGRAM ADMINISTRATOR documented in this encounter [facility] 11-18-2023 Telephone encounter Note Pt called she is having issues with her allergies and is wanting to know if you can send in script for her for Tessalon perles Patient phones requesting refills as follows: Requested Prescriptions Pending Prescriptions Disp Refills benzonatate (TESSALON PERLES) 100 mg capsule 45 capsule 0 Sig: Take 1 capsule by mouth three times a day as needed for cough. Please review and advise. Danielito Montenegro MA [facility] 11-18-2023 Miscellaneous Notes Pt called she is having issues with her allergies and is wanting to know if you can send in script for her for Tessalon perles Patient phones requesting refills as follows: Requested Prescriptions Pending Prescriptions Disp Refills benzonatate (TESSALON PERLES) 100 mg capsule 45 capsule 0 Sig: Take 1 capsule by mouth three times a day as needed for cough. Please review and advise. Danielito Montenegro MA documented in this encounter [facility] 11-02-2023 Telephone encounter Note Last O 09/30/22 Apt 11/30/23 Labs 10/21/22 Pharmacy calls in requesting the following refill(s): Requested Prescriptions Pending Prescriptions Disp Refills losartan (COZAAR) 100 mg tablet [Pharmacy Med Name: Losartan Potassium 100 MG Oral Tablet] 90 tablet 0 Sig: Take 1 tablet by mouth once daily Danielito Montenegro MA [facility] 11-02-2023 Miscellaneous Notes Last O 09/30/22 Apt 11/30/23 Labs 10/21/22 Pharmacy calls in requesting the following refill(s): Requested Prescriptions Pending Prescriptions Disp Refills losartan (COZAAR) 100 mg tablet [Pharmacy Med Name: Losartan Potassium 100 MG Oral Tablet] 90 tablet 0 Sig: Take 1 tablet by mouth once daily Danielito Montenegro MA documented in this encounter [facility] 11-02-2023 Telephone encounter Note Last OV 09/30/22 Apt 11/30/23 Labs 10/21/22 Pharmacy calls in requesting the following refill(s): Requested Prescriptions Pending Prescriptions Disp Refills amLODIPine (NORVASC) 5 mg tablet [Pharmacy Med Name: amLODIPine Besylate 5 MG Oral Tablet] 90 tablet 0 Sig: Take 1 tablet by mouth once daily Danielito Montenegro MA [facility] 11-02-2023 Miscellaneous Notes Last OV 09/30/22 Apt 11/30/23 Labs 10/21/22 Pharmacy calls in requesting the following refill(s): Requested Prescriptions Pending Prescriptions Disp Refills amLODIPine (NORVASC) 5 mg tablet [Pharmacy Med Name: amLODIPine Besylate 5 MG Oral Tablet] 90 tablet 0 Sig: Take 1 tablet by mouth once daily Danielito Montenegro MA documented in this encounter [facility] 09-27-2023 Miscellaneous Notes Last OV 09/30/22 Pharmacy calls in requesting the following refill(s): Requested Prescriptions Pending Prescriptions Disp Refills hydroCHLOROthiazide 12.5 mg tablet [Pharmacy Med Name: hydroCHLOROthiazide 12.5 MG Oral Tablet] 90 tablet 1 Sig: Take 1 tablet by mouth once daily ALLERGY RELIEF, CETIRIZINE, 10 mg tablet [Pharmacy Med Name: EQ Allergy Relief (Cetirizine) 10 MG Oral Tablet] 90 tablet 1 Sig: Take 1 tablet by mouth once daily Danielito Montenegro MA documented in this encounter [facility] 08-17-2023 Miscellaneous Notes Last OV 09/30/22 Labs 03/04/23 Pharmacy calls in requesting the following refill(s): Requested Prescriptions Pending Prescriptions Disp Refills omeprazole (PRILOSEC) 40 mg capsule [Pharmacy Med Name: Omeprazole 40 MG Oral Capsule Delayed Release] 90 capsule 0 Sig: Take 1 capsule by mouth once daily Danielito Montenegro MA documented in this encounter [facility] 08-11-2023 Miscellaneous Notes Called pt let her know the results Danielito Montenegro MA ----- Message from Pilar Ferrer APRN.PROGRAM ADMINISTRATOR sent at 08/09/2023 12:28 PM EST ----- Kidneys stable documented in this encounter [facility] 08-09-2023 Note HNO ID: [id number] Author: SERA RAMOS, ? Service: ? Author Type: ? Type: Progress Notes Filed: 08/09/2023 10:41 Note Text: POPULATION HEALTH NAVIGATION OUTREACH Action/FYI Patient Identified by Name and : YES, via phone Outreach Outcome/Action Spoke to patient / parent / legal guardian: Patient scheduled Chart reviewed. Results abstracted to close care gaps. Gaps abstracted BMP into Epic Chart reviewed, patient has up coming appointment, pre visit planning for BP added to appointment note. Reason for Outreach Care Gap or Scheduling/Wellness visits Payer: Payor: MEDICARE / Plan: MEDICARE A AND B / Product Type: Medicare / Care Gap Reviewed:: Annual Wellness visit Controlling Blood Pressure Navigation Signature: Sera Ramos August 09, 2023 10:31 AM [facility] 08-09-2023 History of Present illness Narrative POPULATION HEALTH NAVIGATION OUTREACH Action/FYI Patient Identified by Name and : YES, via phone Outreach Outcome/Action Spoke to patient / parent / legal guardian: Patient scheduled Chart reviewed. Results abstracted to close care gaps. Gaps abstracted BMP into Epic Chart reviewed, patient has up coming appointment, pre visit planning for BP added to appointment note. Reason for Outreach Care Gap or Scheduling/Wellness visits Payer: Payor: MEDICARE / Plan: MEDICARE A AND B / Product Type: Medicare / Care Gap Reviewed:: Annual Wellness visit Controlling Blood Pressure Navigation Signature: Sera Ramos August 09, 2023 10:31 AM documented in this encounter [facility] 08-09-2023 Note Patient Outreach (AG INTMLW) BRANDON MURO ([id number]) 1945 F Date Time Provider Department 08/09/23 SERA RAMOS AGINTMLW During your visit today, we recorded the following information about you: Sera Ramos 08/09/2023 10:41 AM Signed POPULATION HEALTH NAVIGATION OUTREACH Action/FYI Patient Identified by Name and : YES, via phone Outreach Outcome/Action Spoke to patient / parent / legal guardian: Patient scheduled Chart reviewed. Results abstracted to close care gaps. Gaps abstracted BMP into Epic Chart reviewed, patient has up coming appointment, pre visit planning for BP added to appointment note. Reason for Outreach Care Gap or Scheduling/Wellness visits Payer: Payor: MEDICARE / Plan: MEDICARE A AND B / Product Type: Medicare / Care Gap Reviewed:: Annual Wellness visit Controlling Blood Pressure Navigation Signature: Sera Ramos August 09, 2023 10:31 AM Allergies As of Date: 08/09/2023 Noted Allergy Reaction CELECOXIB 12/16/2016 14 - Other: See Comments MOLD 03/03/2012 16 - Unknown PITAVASTATIN 11/13/2012 14 - Other: See Comments Comments: Drug induced lupus. SULFA (SULFONAMIDE ANTIBIOTICS) 03/03/2012 16 - Unknown Comments: Took for bladder infection and infection became worse. TAPE (ADHESIVE TAPE (ROSINS)) 08/20/2014 2 - Rash VICODIN (HYDROCODONE-ACETAMINOPHE*08/20/19 15 8 - GI Upset Date Reviewed: 09/30/2022 Reviewed by: Pilar Ferrer, [employer]ANT MANAGER.PROGRAM ADMINISTRATOR - Fully Assessed Reason for Visit: Population Health Navigation Outreach [3910] Cmt: ACO Attributed - 2023 Medicare Wellness Appt Scheduled Order(s):BMP EXTERNAL QAI [[id number]] Order #: [id number] Prescriptions as of 08/09/2023 - losartan (COZAAR) 100 mg tablet Take 1 tablet by mouth once daily - omeprazole (PRILOSEC) 40 mg capsule take 1 capsule by mouth once daily - amLODIPine (NORVASC) 5 mg tablet Take 1 tablet by mouth once daily - hydroCHLOROthiazide 12.5 mg tablet Take 1 tablet by mouth once daily - venlafaxine (EFFEXOR) 75 mg tablet Take 1 tablet by mouth once daily. - cetirizine (ALLERGY RELIEF, CETIRIZINE,) 10 mg tablet Take 1 tablet by mouth once daily. - hydrOXYchloroQUINE (PLAQUENIL) 200 mg tablet TAKE 1 AND 1 2 (ONE AND ONE HALF) TABLETS BY MOUTH ONCE DAILY - albuterol HFA (PROAIR HFA) 90 mcg/actuation inhaler Inhale 2 Puffs as instructed every 6 hours as needed. Facility-Administered Medications as of 08/09/2023 - sodium chloride 0.9 % (flush) 10 mL (BD POSIFLUSH) - perflutren lipid microspheres 1.3 mL in NaCl (PF) 0.9% 10 mL injection (DEFINITY) Problem List As Of Date 08/09/2023 Noted Resolved Chronic cough [R05.3] 03/03/2012 Allergic rhinitis [J30.9] 03/03/2012 Hyperlipidemia [E78.5] 08/20/2014 Hypertension [I10] 08/20/2014 Abnormal ECG [R94.31] 11/15/2014 Mild aortic stenosis [I35.0] 11/12/2015 Obesity (BMI 35.0-39.9 without comorbidity) [E6*11/12/2015 Anxiety and depression [F41.9, F32.A] 08/11/2017 Stage 3 chronic kidney disease (HCC) [N18.30] 09/30/2022 Encounter Status:Closed by SERA RAMOS on 08/09/23 [facility] 07-30-2023 Miscellaneous Notes pharmacy electronically requesting refills as follows: Last seen 09/30/22 . Last refill 05/01/23 . Requested Prescriptions Pending Prescriptions Disp Refills amLODIPine (NORVASC) 5 mg tablet [Pharmacy Med Name: amLODIPine Besylate 5 MG Oral Tablet] 90 tablet 0 Sig: Take 1 tablet by mouth once daily Please review and advise. Kyile Lee MA documented in this encounter [facility] 07-30-2023 Miscellaneous Notes pharmacy electronically requesting refills as follows: Last seen 09/30/22 . Last refill 04/12/23 . Requested Prescriptions Pending Prescriptions Disp Refills omeprazole (PRILOSEC) 40 mg capsule [Pharmacy Med Name: omeprazole 40 mg capsule,delayed release] 90 capsule 0 Sig: take 1 capsule by mouth once daily Please review and advise. Kylie Lee MA documented in this encounter [facility] 07-30-2023 Miscellaneous Notes pharmacy electronically requesting refills as follows: Last seen 09/30/22 . Last refill 04/29/23. No future appointments Requested Prescriptions Pending Prescriptions Disp Refills losartan (COZAAR) 100 mg tablet [Pharmacy Med Name: Losartan Potassium 100 MG Oral Tablet] 90 tablet 0 Sig: Take 1 tablet by mouth once daily Please review and advise. Kylie Lee MA documented in this encounter [facility] 04-30-2023 Miscellaneous Notes pharmacy electronically requesting refills as follows: Last seen 09/30/22 . Last refill 12/22/22 . Requested Prescriptions Pending Prescriptions Disp Refills amLODIPine (NORVASC) 5 mg tablet [Pharmacy Med Name: amLODIPine Besylate 5 MG Oral Tablet] 90 tablet 0 Sig: Take 1 tablet by mouth once daily Please review and advise. Kylie Lee MA documented in this encounter [facility] 04-12-2023 Miscellaneous Notes Last OV 09/30/22 Labs 10/21/22 Pharmacy calls in requesting the following refill(s): Requested Prescriptions Pending Prescriptions Disp Refills omeprazole (PRILOSEC) 40 mg capsule [Pharmacy Med Name: Omeprazole 40 MG Oral Capsule Delayed Release] 90 capsule 0 Sig: Take 1 capsule by mouth once daily Danielito Montenegro MA documented in this encounter [facility] 02-22-2023 Miscellaneous Notes Called pt left VM that she is due for labs and to see if she had them done at in [place] Danielito Montenegro MA These orders were already placed by Pilar on 01/04/23. Please remind the patient to complete li. Thank you. ----- Message from Kylie Lee MA sent at 01/08/2023 10:52 AM EDT ----- Patient due for 6 week recheck TSH, T4 and BMP to monitor elevated creatinine and TSH. Patient would like to do labs at in [place]. Kylie Lee MA documented in this encounter [facility] 02-22-2023 Evaluation note Diagnosis Stage 3 chronic kidney disease, unspecified whether stage 3a or 3b CKD (HCC)- Primary Elevated TSH Nonspecific abnormal results of thyroid function study documented in this encounter [facility]07-13-2023 Miscellaneous Notes* Telephone Encounter - Danielito Montenegro MA - 01/07/2023 4:31 PM EDT Called pt left VM regarding results and her needing recheck labs Danielito Montenegro MA * Telephone Encounter - Danielito Montenegro MA - 01/05/2023 10:09 AM EDT Called pt left VM for her to call the office regarding her results Danielito Montenegro MA * Telephone Encounter - Pilar Ferrer APRN.CNP - 01/04/2023 4:45 PM EDT Vit d is low. Take vit D 1000 international unit(s) daily or increase by 1000 international unit(s)daily. Please update med list if she is taking this. Tsh is borderline high recheck in 6 wks. With T4. Lipids TC and LDL are both mildly elevated. CMP creatinine mildly elevated, sugar borderline. Recheck BMP in 6 wks CBC wnl [facility] Misc[facility] Notes* Telephone Encounter - Danielito Montenegro MA - 12/22/2022 4:06 PM EDT Last OV 09/30/22 Called pt she stated she had her labs done at [place] she is going to call them and have them fax the results to us Pharmacy calls in requesting the following refill(s): Requested Prescriptions Pending Prescriptions Disp Refills amLODIPine (NORVASC) 5 mg tablet 90 tablet 0 Sig: Take 1 tablet by mouth once daily. hydroCHLOROthiazide 12.5 mg tablet 90 tablet 0 Sig: Take 1 tablet by mouth once daily. omeprazole (PRILOSEC) 40 mg capsule 90 capsule 0 Sig: Take 1 capsule by mouth once daily. losartan (COZAAR) 100 mg tablet 90 tablet 0 Sig: Take 1 tablet by mouth once daily. Danielito Montenegro MA [facility] Miscellaneous Notes* Telephone Encounter - Danielito Montenegro MA - 12/17/2022 3:42 PM EDT Called pt let her know the results she will go to [facility]. Gave her contact informationfor [facility] faxed records to there office Danielito Montenegro MA * Telephone Encounter - Pilar Ferrer APRN.CNP - 12/17/2022 3:07 PM EDT Let pt know that her echo results are suggestive or moderate to sever aortic stenosis. She will need to see a mechanic and welder. There is also mild aortic regurg. Please give her names of different providers. [facility] Miscellaneous Notes* Telephone Encounter - Danielito Montenegro MA - 12/14/2022 10:04 AM EDT Last OV 09/30/22 Apt 04/01/23 Labs pt had labs done at [place] she will call them and ask that they faxe the results to us Danielito Montenegro MA Pharmacy calls in requesting the following refill(s): Requested Prescriptions Pending Prescriptions Disp Refills amLODIPine (NORVASC) 5 mg tablet [Pharmacy Med Name: amLODIPine Besylate 5 MG Oral Tablet] 30 tablet 0 Sig: Take 1 tablet by mouth once daily Danielito Montenegro MA [facility] Miscellaneous Notes* Telephone Encounter - Danielito Montenegro MA - 11/02/2022 7:27 AM EDT Last OV 09/30/22 Apt 04/01/23 Called pt left VM that she needs to have labs Pharmacy calls in requesting the following refill(s): Requested Prescriptions Pending Prescriptions Disp Refills losartan (COZAAR) 100 mg tablet [Pharmacy Med Name: Losartan Potassium 100 MG Oral Tablet] 90 tablet 0 Sig: Take 1 tablet by mouth once daily Danielito Montenegro MA [facility] Instructions* Patient Instructions* Pilar Ferrer APRN.MARY LOU - 09/30/2022 9:40 AM EDT ASSESSMENT/PLAN: 1. Primary hypertension - ICD9: 401.9, ICD10: I10 (primary diagnosis) - good control - Continue current medication(s) - Encouraged dietary sodium restriction/DASH diet - Recommended regular aerobic exercise. - Recommend home blood pressure monitoring, to bring results in on next visit - Discussed need and benefit for weight loss. - Reviewed risks of HTN and principles of treatment - Goal of BP <130/80 - HYDROCHLOROTHIAZIDE 12.5 MG TABLET - CBC - COMP METABOLIC PANEL 2. Anxiety and depression - ICD9: 300.00, 311, ICD10: F41.9, F32.A - VENLAFAXINE 75 MG TABLET 3. Mixed hyperlipidemia - ICD9: 272.2, ICD10: E78.2 - to be determined upon return of lab results - Continue current medication. - Encouraged following a low fat, low cholesterol diet. - Discussed the benefits of regular aerobic exercise and weight loss. - Check fasting lipid panel - Encouraged following a low carbohydrate, healthy oil intake diet. - LIPID PANEL BASIC 4. Mild aortic stenosis - ICD9: 424.1, ICD10: I35.0 - ECHO - SODIUM CHLORIDE 0.9 % (FLUSH) INJECTION SYRINGE - PERFLUTREN LIPID MICROSPHERES 1.1 MG/ML INJECTION IN NS 10 ML 5. Gastroesophageal reflux disease without esophagitis - ICD9: 530.81, ICD10: K21.9 - Discussed lifestyle modifications including losing weight, limiting caffeine, no meals three hours before sleep, and head of bed elevation - Continue treatment with Prilosec 40 mg QD - OMEPRAZOLE 40 MG CAPSULE,DELAYED RELEASE 6. Stage 3 chronic kidney disease, unspecified whether stage 3a or 3b CKD (HCC) - ICD9: 585.3, ICD10: N18.30 - eGFR: Stable - Statin therapy: No - ACEi/ARB prescribed: Yes - Counseled on avoiding regular use of NSAIDs, adequate hydration, potential risk of IV dye - Recommend maintaining blood pressure under 130/80 - Counseled on renal diet (low sodium/low potassium/low phosphorus) - Refer to [email or web address] for diet information - Medications reviewed and renally adjusted 7. Vitamin D deficiency - ICD9: 268.9, ICD10: E55.9 - VITAMIN D 25 HYDROXY 8. Encounter for screening mammogram for malignant neoplasm of breast - ICD9: V76.12, ICD10: Z12.31 - ROSA ISELA SCREENING 9. Screening for thyroid disorder - ICD9: V77.0, ICD10: Z13.29 - TSH BLD 10. Left carotid bruit - ICD9: 785.9, ICD10: R09.89 - US CAROTID BILATERAL Pilar Ferrer APRN.PROGRAM ADMINISTRATOR [facility] History of Present illness Narrative* Pilar Ferrer APRN.PROGRAM ADMINISTRATOR - 09/30/2022 9:04 AM EDT SUBJECTIVE: Brandon Muro is a 77 year old female who presents in follow up of HTN. PMH lupus, allergies, anxiety, depression, aortic stenosis. She was last seen by me in 04/2022 for viral illness. Reports she has had dry cough since then. Patient denies changes in health since last office visit. Reports feeling well. Denies concerns or complaints today. I reviewed her past medical, surgical, social, and family histories today and updated chart. Allergies, chronic medications, and supplements were also reviewed and her list is now up to date. HTN: Ms. Muro indicates that she is feeling well and denies any symptoms referable to elevated blood pressure. Specifically denies headache, chest pain, palpitations, dyspnea, peripheral edema, claudication symptoms, orthopnea, fatigue, and PND. Patient denies any side effects of her medication(s) and is compliant with their regimen. She does not check BP's generally. Brandon works out regularly 2-3 times per week with walking and pool work out. She watches her diet for sodium, low fat and low cholesterol some of the time. She is taking norvasc 5 mg, losartan 100 mg daily, HCTZ 12.5 mg daily. Last 3 Encounter BP Readings: Date: BP: 09/30/2022 162/90 08/05/2022 120/70 05/04/2022 128/72 Lupus: She is seeing Dr Rios for management. At last office visit on 01/30/20 [address] Plaquen[address] Rios also had pt decrease HCTZ due to increase in creatinine. Depression and anxiety: she is taking Effexor daily for management. She reports her symptoms have been well managed with Effexor. She was started on Effexor after her in 2017. States anxiety has been controlled with effexor. 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 She reports she really enjoys going and keeps her mind off things.Denies feeling depressed or thoughts of suicide. reports if she misses doses she can tell and feels anxious. Reports she met a real nice man and states she hands out with emeka lot. States this has helped her depression. He has a 50 yo disabled child that he cares for. She feels they have been a blessing to her. Aortic stenosis: reports having murmur for years. Last echo 2016. Denies symptoms. Allergies: environmental, chronic. She is using flonase and allergy medication daily. Reports when her allergies are really bad she will use her albuterol inhaler due to feeling SOB which helps with her symptoms. She is former smoker as well. CKD: She has history renal insuffiency and was seeing Dr Tyson in [place]. States she was taking medication for arthritis and once she went off it her kidneys improved. Preventative: she had colonoscopy with Dr Quinones in August 2022. Reports small hemorrhoids. Reports she was told she does not need another one. She never received her COVID vaccines and is not interested in this. Some elements of above documentation were copied from my progress note of 05/14/21 and have been reexamined and updated where appropriate. All elements reflect the current assessment and medical decision making today . 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 GERD (gastroesophageal reflux disease) Glaucoma 10/2013 Angular glaucoma with laser bilaterally. Hypertension 1989 Vitamin D deficiency PAST SURGICAL HISTORY Procedure Laterality Date ANESTH, SECTION 1966 APPENDECTOMY ARTHRP ACETBLR/PROX FEM PROSTC AGRFT/ALGRFT 2010 CATARACT SURGERY, COMPLEX Bilateral 11/27/2019 DELIVERY ONLY 1965,1965 CHOLECYSTECTOMY HEART CATHETERIZATION 2000 LUMPECTOMY/RADIOTHERAPY DIAG MAMM/A10 OPEN MINI-LAPAROTOMY W/LYSIS ADHESIONS PAST SURGICAL HISTORY OF 10/2012 skin biopsy PAST SURGICAL HISTORY OF 10/2013 laser for angular glaucoma ROTATOR CUFF REPAIR right Social History Tobacco Use Smoking status: Former Packs/day: 1.00 Years: 8.00 Pack years: 8.00 Types: Cigarettes Quit date: 06/28/1980 Years since quittin.2 Smokeless tobacco: Never Tobacco comments: No one in household smokes Substance Use Topics Alcohol use: No Drug use: No Family history reviewed. ALLERGIES Allergen Reactions Celecoxib Other: See Comments Mold Unknown Pitavastatin Other: See Comments Drug induced lupus. Sulfa (Sulfonamide * Unknown Took for bladder infection and infection became worse. Tape [Adhesive Tape* Rash Vicodin [Hydrocodon* GI Upset Current Outpatient Medications Medication Sig amLODIPine (NORVASC) 5 mg tablet Take 1 tablet by mouth once daily losartan (COZAAR) 100 mg tablet Take 1 tablet by mouth once daily omeprazole (PRILOSEC) 40 mg capsule Take 1 capsule by mouth once daily hydroCHLOROthiazide (HYDRODIURIL, ESIDRIX) 12.5 mg tablet Take 1 tablet by mouth once daily ALLERGY RELIEF, CETIRIZINE, 10 mg tablet Take 1 tablet by mouth once daily venlafaxine (EFFEXOR) 75 mg tablet Take 1 tablet by mouth twice daily. hydrOXYchloroQUINE (PLAQUENIL) 200 mg tablet TAKE 1 & 1 2 (ONE & ONE HALF) TABLETS BY MOUTHONCE DAILY albuterol HFA (PROAIR HFA) 90 mcg/actuation inhaler Inhale 2 Puffs as instructed every 6 hours as needed. No current facility-administered medications for this visit. THE LAST 2 WEEKS, HAVE YOU BEEN BOTHERED BY ANY OF THE FOLLOWING? - Little interest or pleasure in doing things 1 SEVERAL DAYS Feeling down, depressed, or hopeless 1 Trouble falling or staying asleep, or sleeping too much 3 Feeling tired or having little energy 2 Poor appetite or overeating 3 Feeling bad yourself-you are a failure or have let yourself or others 0 Trouble concentrating, like reading the paper or watching TV 0 Moving/speaking slowly (others notice) OR being more fidgety/restless 0 Thoughts that you would be better off or of hurting yourself 0 PHQ TOTAL SCORE = 10 PHQ problems effect on difficulty of work, home, and social activity: 1 - NOT DIFFICULT AT ALL Feeling nervous, anxious, or on edge 2 Over half the days Not being able to stop or control worrying 1 Several days Worrying too much about different things 1 Several days Trouble relaxing 1 Several days Being so restless that it's hard to sit still 2 Over half the days Being easily annoyed or irritable 2 Over half the days Feeling afraid as if something awful might happen 2 Over half the days GARRY-7 Anxiety Score 11 If you checked off any problems, how difficult have these problems made it for you to do your work,take care of things at home, or get along with other people? Somewhat difficult Review of Systems Constitutional: Negative for chills, diaphoresis, fever, malaise/fatigue and weight loss. HENT: Negative. Negative for congestion, ear pain, sore throat and tinnitus. Eyes: Negative for blurred vision, double vision, photophobia and pain. Respiratory: Positive for cough. Negative for sputum production, shortness of breath and wheezing. Dry cough, reports hard cough that lasts a while when it starts. States this has been occurring since viral illness in April. Cardiovascular: Negative for chest pain, palpitations, orthopnea and leg swelling. Gastrointestinal: Negative for abdominal pain, blood in stool, constipation, diarrhea, heartburn, melena, nausea and vomiting. Genitourinary: Negative for dysuria, frequency, hematuria and urgency. Musculoskeletal: Negative for back pain, falls, joint pain, myalgias and neck pain. Skin: Negative for itching and rash. Neurological: Negative for dizziness, tingling, tremors, sensory change, speech change, focal weakness, weakness and headaches. Endo/Heme/Allergies: Negative for environmental allergies and polydipsia. Does not bruise/bleed easily. Psychiatric/Behavioral: Negative for depression and substance abuse. The patient is not nervous/anxious and does not have insomnia. 09/30/22 0854 09/30/22 0915 BP: 162/90 148/72 BP Site: Right Arm BP Position: Sitting BP Cuff Size: Regular Adult Pulse: 65 Resp: 18 Temp: 36.4 C (97.6 F) TempSrc: Oral SpO2: 98% Weight: 87.5 kg (193 lb) Height: 157.5 cm (5' 2 ) Physical Exam Vitals and nursing note reviewed. Constitutional: General: She is not in acute distress. Appearance: Normal appearance. She is not diaphoretic. HENT: Head: Normocephalic and atraumatic. Right Ear: External ear normal. Left Ear: External ear normal. Nose: Nose normal. Mouth/Throat: Pharynx: No oropharyngeal exudate. Eyes: General: Lids are normal. No scleral icterus. Right eye: No discharge. Left eye: No discharge. Conjunctiva/sclera: Conjunctivae normal. Pupils: Pupils are equal, round, and reactive to light. Neck: Vascular: Normal carotid pulses. Carotid bruit present. Comments: Left bruit Cardiovascular: Rate and Rhythm: Normal rate and regular rhythm. Pulses: Normal pulses. Carotid pulses are 2+ on the right side and 2+ on the left side. Radial pulses are 2+ on the right side and 2+ on the left side. Heart sounds: S1 normal and S2 normal. Murmur heard. Systolic murmur is present with a grade of 3/6. No friction rub. No gallop. Pulmonary: Effort: Pulmonary effort is normal. No accessory muscle usage or respiratory distress. Breath sounds: Normal breath sounds. No decreased breath sounds, wheezing, rhonchi or rales. Chest: Chest wall: No tenderness. Abdominal: General: Bowel sounds are normal. There is no distension. Palpations: Abdomen is soft. Tenderness: There is no abdominal tenderness. Musculoskeletal: General: No tenderness. Normal range of motion. Cervical back: Normal range of motion and neck supple. Right lower leg: No edema. Left lower leg: No edema. Skin: General: Skin is warm and dry. Coloration: Skin is not pale. Findings: No erythema or rash. Nails: There is no clubbing. Neurological: Mental Status: She is alert and oriented to person, place, and time. Sensory: Sensation is intact. Motor: Motor function is intact. No abnormal muscle tone. Coordination: Coordination normal. Gait: Gait is intact. Deep Tendon Reflexes: Reflexes are normal and symmetric. Psychiatric: Mood and Affect: Mood and affect normal. Behavior: Behavior normal. Thought Content: Thought content normal. Cognition and Memory: Memory normal. Judgment: Judgment normal. ASSESSMENT/PLAN: 1. Primary hypertension - ICD9: 401.9, ICD10: I10 (primary diagnosis) - good control - Continue current medication(s) - Encouraged dietary sodium restriction/DASH diet - Recommended regular aerobic exercise. - Recommend home blood pressure monitoring, to bring results in on next visit - Discussed need and benefit for weight loss. - Reviewed risks of HTN and principles of treatment - Goal of BP <130/80 - HYDROCHLOROTHIAZIDE 12.5 MG TABLET - [facility] - COMP METABOLIC PANEL 2. Anxiety and depression - ICD9: 300.00, 311, ICD10: F41.9, F32.A - Chronic controlled. - continue effexor - call If worsens - VENLAFAXINE 75 MG TABLET 3. Mixed hyperlipidemia - ICD9: 272.2, ICD10: E78.2 - to be determined upon return of lab results - Continue current medication. - Encouraged following a low fat, low cholesterol diet. - Discussed the benefits of regular aerobic exercise and weight loss. - Check fasting lipid panel - Encouraged following a low carbohydrate, healthy oil intake diet. - LIPID PANEL BASIC 4. Mild aortic stenosis - ICD9: 424.1, ICD10: I35.0 - murmur noted on exam. Pt reports having for years. Last echo 2015. Will order echo for surveillance - ECHO - SODIUM CHLORIDE 0.9 % (FLUSH) INJECTION SYRINGE - PERFLUTREN LIPID MICROSPHERES 1.1 MG/ML INJECTION IN NS 10 ML 5. Gastroesophageal reflux disease without esophagitis - ICD9: 530.81, ICD10: K21.9 - chronic, controlled - Discussed lifestyle modifications including losing weight, limiting caffeine, no meals three hours before sleep, and head of bed elevation - Continue treatment with Prilosec 40 mg QD - OMEPRAZOLE 40 MG CAPSULE,DELAYED RELEASE 6. Stage 3 chronic kidney disease, unspecified whether stage 3a or 3b CKD (HCC) - ICD9: 585.3, ICD10: N18.30 - check labs - eGFR: Stable - Statin therapy: No - ACEi/ARB prescribed: Yes - Counseled on avoiding regular use of NSAIDs, adequate hydration, potential risk of IV dye - Recommend maintaining blood pressure under 130/80 - Counseled on renal diet (low sodium/low potassium/low phosphorus) - Refer to [email or web address] for diet information - Medications reviewed and renally adjusted 7. Vitamin D deficiency - ICD9: 268.9, ICD10: E55.9 - VITAMIN D 25 HYDROXY 8. Encounter for screening mammogram for malignant neoplasm of breast - ICD9: V76.12, ICD10: Z12.31 - ROSA ISELA SCREENING 9. Screening for thyroid disorder - ICD9: V77.0, ICD10: Z13.29 - TSH BLD 10. Left carotid bruit - ICD9: 785.9, ICD10: R09.89 - left carotid bruit- difficulty distinguishing if from her heart murmur. Will check US to make sure there is no stenosis - US CAROTID BILATERAL Pilar Ferrer APRN.CNP I spent a total of 55 minutes on the date of the service which included preparing to see the patient, [id number] patient care, completing clinical documentation, obtaining and/or reviewing separately obtained history, performing a medically appropriate examination, counseling and educating the pat ient/family/caregiver, and ordering medications, tests, or procedures. [facility]23 Miscellaneous Notes* Telephone Encounter - Angelica Buenrostro MA - 08/19/2022 9:20 AM EST Left message on patients vm with all information. (Lab hours also left). Ok per lifetime consent. Angelica Buenrostro MA * Telephone Encounter - Donell Olivera APRN.CNP - 08/19/2022 8:29 AM EST ----- Message from Donell Olivera APRN.CNP sent at 08/05/2022 10:26 AM EST ----- Due for recheck UA - blood in urine. Donell Olivera APRN.CNP documented in [facility]02[facility]-2023 Miscellaneous Notes* Telephone Encounter - Danielito Montenegro MA - 07/29/2022 7:06 AM EST Last OV 05/04/22 Labs 05/20/21 Pt is due for routine labs please place order pt is due for routine ov Called pt left Vm that she is due for OV no further refills will be sent in till she is seen in theoffice Pharmacy calls in requesting the following refill(s): Requested Prescriptions Pending Prescriptions Disp Refills amLODIPine (NORVASC) 5 mg tablet [Pharmacy Med Name: amLODIPine Besylate 5 MG Oral Tablet] 90 tablet 0 Sig: Take 1 tablet by mouth once daily losartan (COZAAR) 100 mg tablet [Pharmacy Med Name: Losartan Potassium 100 MG Oral Tablet] 90 tablet 0 Sig: Take 1 tablet by mouth once daily Danielito Montenegro MA documented [facility]12[facility]22 Miscellaneous Notes* Telephone Encounter - Danielito Montenegro MA - 06/18/2022 10:21 AM EST Last OV 05/04/22 Labs 05/20/21 Pt need routine labs done Pharmacy calls in requesting the following refill(s): Requested Prescriptions Pending Prescriptions Disp Refills omeprazole (PRILOSEC) 40 mg capsule [Pharmacy Med Name: Omeprazole 40 MG Oral Capsule Delayed Release] 90 capsule 0 Sig: Take 1 capsule by mouth once daily hydroCHLOROthiazide (HYDRODIURIL, ESIDRIX) 12.5 mg tablet [Pharmacy Med Name: hydroCHLOROthiazide 12.5 MG Oral Tablet] 90 tablet 0 Sig: Take 1 tablet by mouth once daily Danielito Montenegro MA documented in [facility]Cl[facility]12[facility]-2022 Miscellaneous Notes* Telephone Encounter - Danielito Montenegro MA - 06/15/2022 3:06 PM EST Pt tested positive for COVID Krstin sent in [employer] and cough medication for pt Danielito Montenegro MA * Telephone Encounter - Danielito Montenegro MA - 06/15/2022 3:06 PM EST ----- Message from Robyn Jacome sent at 06/12/2022 9:22 AM EST ----- Regarding: FW: Yesenia/Pilar Ferrer/Patient Requesting Cough Medicine ----- Message ----- From: Ella Guerrero Sent: 06/12/2022 9:16 AM EST To: [facility] Triage Pool Subject: Medicine/Pilar Ferrer/Patient Requesting C# Subject Line Format: Medicine / [Provider Name] / [Issue] Patient has been identified by name and Date of (Y/N): Y Patient: Brandon Muro Date of : 1945 Provider for this encounter: Pilar Ferrer APRN.MARY LOU Reason for the call/escalation: Patient requesting cough medicine Was Patient Referred to [facility]/Seek Emergency Treatment (Y/N): N Did Patient Agree (Y/N): N/A Was An Attempt Made To Transfer The Patient To The Office (Y/N): N Were You Able To Reach Someone At The Office (Y/N): N/A If Yes - Patient Was Transferred To (Caregivers Name): N/A If No - Which [facility] [employer] Did You Speak With Regarding This Patient: N/A Was an appointment scheduled (Y/N): N Reason patient was requesting visit (RFV/signs and symptoms/diagnosis) : Patient has cough and was seen 05/04 by Pilar Ferrer for same issue. Patient asking if a cough medicine can be called in for her? Person calling if other than patient: patient Return call to if other than patient: patient Best contact number: [phone] Thank you, Ella Guerrero June 12, 2022 9:13 AM documented in this encounterCl[facility]11-09-2022 Miscellaneous Notes* Telephone Encounter - Danielito Montenegro MA - 05/06/2022 7:50 AM EST Last OV 05/04/22 Pt is due for routine physical and lab work needs done called pt left VM that she needs to have this done prior to any further refills Pharmacy calls in requesting the following refill(s): Requested Prescriptions Pending Prescriptions Disp Refills amLODIPine (NORVASC) 5 mg tablet [Pharmacy Med Name: amLODIPine Besylate 5 MG Oral Tablet] 90 tablet 0 Sig: Take 1 tablet by mouth once daily ALLERGY RELIEF, CETIRIZINE, 10 mg tablet [Pharmacy Med Name: EQ Allergy Relief (Cetirizine) 10 MG Oral Tablet] 90 tablet 0 Sig: Take 1 tablet by mouth once daily Danielito Montenegro MA documented in this [facility]08-25-2022 Miscellaneous Notes* Telephone Encounter - Kylie Lee MA - 02/19/2022 4:14 PM EDT pharmacy electronically requesting refills as follows: Last seen 05/14/21 . Last refill 05/14/21 . No future appointments Requested Prescriptions Pending Prescriptions Disp Refills hydroCHLOROthiazide (HYDRODIURIL, ESIDRIX) 12.5 mg tablet [Pharmacy Med Name: hydroCHLOROthiazide 12.5 MG Oral Tablet] 90 tablet 0 Sig: Take 1 tablet by mouth once daily Please review and advise. Kylie Lee MA documented in this [facility]07-22-2022 Miscellaneous Notes* Telephone Encounter - Kylie Lee MA - 01/16/2022 10:44 AM EDT pharmacy electronically requesting refills as follows: Last seen 05/14/21 . Last refill both 05/14/21 . Pending Prescriptions Disp Refills OMEPRAZOLE 40 MG CAPSULE,DELAYED RELEASE 90 capsule 0 Sig: Take 1 capsule by mouth once daily MELISSA: Yes AMLODIPINE 5 MG TABLET 90 tablet 0 Sig: Take 1 tablet by mouth once daily MELISSA: Yes Please review and advise. Kylie Lee MA documented in this [facility]07-11-2022 Miscellaneous Notes* Telephone Encounter - Danielito Montenegro MA - 01/05/2022 8:20 AM EDT Last OV 05/14/21 Labs 05/14/21 Pharmacy calls in requesting the following refill(s): Pending Prescriptions Disp Refills LOSARTAN 100 MG TABLET 90 tablet 1 Sig: Take 1 tablet by mouth once daily MELISSA: Yes Danielito Montenegro MA documented in this [facility]12-06-2021 History of Present illness Narrative* Tanja Mcdonald, GUIDE DELEGATE - 06/02/2021 10:45 AM EST [facility] OUT[facility]IENT REHABIL[facility]ATION DAILY TREATMENT NOTE Today's Date 06/02/2021 Patient Name: Brandon Muro Date of : 1945 Current Visit #: 14 Authorized Visits: 199 Case Name: S/P Right TKR History: Pre-Treatment Pain Scale: 0 Symptoms: gradually improved Functional Diagnosis: 1. Status post total right knee replacement Clinical Information: Subjective: her knee felt very good on Wednesday and was moving it very well. She is very stiff today and has to see her Surgeon tomorrow for follow up. Objective AAROM flexion 110 degrees Pain 0-4/10 depending on activity She is sleeping much better Able to stand and get around the grocery store for 1 hour. Treatments: Physical Therapy Exercise Log - 06/02/21 1047 OTHER Precautions/Contraindications TKA 02/28/21 Notes visit 33: 9:45-10:30 Therapeutic Exercise (81942) Intervention Bike - x5 min Lvl 1 seat 4 down to 3 as got loosened up Parameters step stretches - 20 sec x2 (calf, HS Lunges) 6 step Intervention Manual stretching into flexion to pt tolerance x30 mins Parameters oscillations, distraction and myofascial release x8 mins PT Treatment Times Therex Total Time 45 Direct Treatment Time 45 Total Treatment Time 45 Goals: Physical Therapy Ortho Goals: MOBILITY: Patient will be able to ambulate for 1 hour in community and ambulate on uneven surfaces without difficulty in 6 weeks. MOBILITY: Patient will be able to ascend/descend stairs without difficulty in 4 weeks. IMPAIRMENT: Improve pain from 10/10 to <4/10 during prolonged standing, walking and stair negotiation in 6 weeks IMPAIRMENT: Improve gross MMT of the Knee to at least 4+/5 in 6 weeks IMPAIRMENT: Improve AROM of the Knee to 0-120 degrees in 6 weeks. IMPAIRMENT: Improve Swelling of the Knee to <2.5cm in 6 weeks. OTHER: Patient will be able to properly demonstrate independence with HEP in 1 week. Patient Education: Quality of movement with patient demonstrated understanding. Post-Treatment Pain Scale: 0 Assessment: Patient had an expected response to treatment. Skilled Intervention demonstrated by modifications of treatment per exercise log including increased intensity and safety interventions per exercise log. Progress towards goals as expected. Plan for Next Visit: Discharge with HEP Tanja Mcdonald PTA STATE LICENSE, [id number] documented in this [id number] History of Present illness Narrative* Wilbert Palomares PTA - 05/30/2021 10:45 AM EST [facility] OUT[facility] REH[facility]IL[facility] DAILY TREATMENT NOTE Today's Date 05/30/2021 Patient Name: Brandon Muro Date of : 1945 Current Visit #: 13 Authorized Visits: 199 Case Name: S/P Right TKR History: Pre-Treatment Pain Scale: 1 Symptoms: gradually improved Functional Diagnosis: 1. Status post total right knee replacement Clinical Information: Subjective: Pt reports using upright stationary bike at home and able to peddle forward but it was painful. Objective Knee Right Knee Range of Motion: Flexion Passive: 114 Treatments: Physical Therapy Exercise Log - 05/30/21 1047 OTHER Precautions/Contraindications TKA 02/28/21 Notes visit 32: 10:45-11:25 Therapeutic Exercise (81730) Intervention Bike - x5 min Lvl 1 seat 4 down to 3 as got loosened up Parameters step stretches - 20 sec x2 (calf, HS Lunges) 6 step Intervention Manual stretching into flexion to pt tolerance x30 mins Parameters oscillations, distraction and myofascial release x8 mins PT Treatment Times Therex Total Time 40 Direct Treatment Time 40 Total Treatment Time 40 Goals: Physical Therapy Ortho Goals: MOBILITY: Patient will be able to ambulate for 1 hour in community and ambulate on uneven surfaces without difficulty in 6 weeks. MOBILITY: Patient will be able to ascend/descend stairs without difficulty in 4 weeks. IMPAIRMENT: Improve pain from 10/10 to <4/10 during prolonged standing, walking and stair negotiation in 6 weeks IMPAIRMENT: Improve gross MMT of the Knee to at least 4+/5 in 6 weeks IMPAIRMENT: Improve AROM of the Knee to 0-120 degrees in 6 weeks. IMPAIRMENT: Improve Swelling of the Knee to <2.5cm in 6 weeks. OTHER: Patient will be able to properly demonstrate independence with HEP in 1 week. Patient Education: Quality of movement with patient demonstrated understanding. Post-Treatment Pain Scale: 1 Assessment: Patient had an expected response to treatment. Skilled Intervention demonstrated by modifications of treatment per exercise log including increased load and safety interventions per exercise log. Progress towards goals as expected. Plan for Next Visit: Treatment Visit with focus on ROM Wilbert Palomares PTA STATE LICENSE, [id number] documented in this [id number] History of Present illness Narrative* Tanja Mcdonald PTA - 05/26/2021 10:45 AM EST [facility] DAILY TREATMENT NOTE Today's Date 05/26/2021 Patient Name: Brandon Muro Date of : 1945 Current Visit #: 11 Authorized Visits: 199 Case Name: S/P Right TKR History: Pre-Treatment Pain Scale: 2 Symptoms: gradually improved Functional Diagnosis: 1. Status post total right knee replacement Clinical Information: Subjective: Her knee is stiff today. Objective AAROM flexion 110 degrees. Treatments: Physical Therapy Exercise Log - 05/26/21 1224 OTHER Precautions/Contraindications TKA 02/28/21 Notes visit 30: 10:45-11:25 Therapeutic Exercise (13375) Intervention SciFit - x5 min Lvl 3 Parameters step stretches - 20 sec x2 (calf, HS Lunges) 6 step Intervention Manual stretching into flexion to pt tolerance x30 mins Parameters oscillations, distraction and myofascial release x8 mins PT Treatment Times Therex Total Time 20 Manual Therapy Total Time 20 Direct Treatment Time 40 Total Treatment Time 40 Goals: Physical Therapy Ortho Goals: MOBILITY: Patient will be able to ambulate for 1 hour in community and ambulate on uneven surfaces without difficulty in 6 weeks. MOBILITY: Patient will be able to ascend/descend stairs without difficulty in 4 weeks. IMPAIRMENT: Improve pain from 10/10 to <4/10 during prolonged standing, walking and stair negotiation in 6 weeks IMPAIRMENT: Improve gross MMT of the Knee to at least 4+/5 in 6 weeks IMPAIRMENT: Improve AROM of the Knee to 0-120 degrees in 6 weeks. IMPAIRMENT: Improve Swelling of the Knee to <2.5cm in 6 weeks. OTHER: Patient will be able to properly demonstrate independence with HEP in 1 week. Patient Education: Quality of movement with patient demonstrated understanding. Post-Treatment Pain Scale: 1 Assessment: Patient had an expected response to treatment. Skilled Intervention demonstrated by modifications of treatment per exercise log including increased intensity and safety interventions per exercise log. Progress towards goals as expected. Plan for Next Visit: Treatment Visit with focus on flexion Tanja Mcdonald PTA STATE LICENSE, [id number] documented in this [id number] History of Present illness Narrative* Wilbert Palomares PTA - 05/23/2021 11:30 AM EST [facility] DAILY TREATMENT NOTE Today's Date 05/23/2021 Patient Name: Brandon Muro Date of : 1945 Current Visit #: 10 Authorized Visits: 199 Case Name: S/P Right TKR History: Pre-Treatment Pain Scale: 0 Symptoms: gradually improved Functional Diagnosis: 1. Status post total right knee replacement Clinical Information: Subjective: Pt denies change in med Hx, reports knee sore and feels like knee is bending more. Objective Knee Right Knee Range of Motion: Flexion Passive: 117 Treatments: Physical Therapy Exercise Log - 05/23/21 1130 OTHER Precautions/Contraindications TKA 02/28/21 Notes visit 29: 1130 - 12:08 Therapeutic Exercise (15078) Intervention SciFit - x5 min Lvl 3 Parameters step stretches - 20 sec x2 (calf, HS Lunges) 6 step Intervention Manual stretching into flexion to pt tolerance x30 mins Parameters oscillations, distraction and myofascial release x8 mins PT Treatment Times Therex Total Time 38 Direct Treatment Time 38 Total Treatment Time 38 Goals: Physical Therapy Ortho Goals: MOBILITY: Patient will be able to ambulate for 1 hour in community and ambulate on uneven surfaces without difficulty in 6 weeks. MOBILITY: Patient will be able to ascend/descend stairs without difficulty in 4 weeks. IMPAIRMENT: Improve pain from 10/10 to <4/10 during prolonged standing, walking and stair negotiation in 6 weeks IMPAIRMENT: Improve gross MMT of the Knee to at least 4+/5 in 6 weeks IMPAIRMENT: Improve AROM of the Knee to 0-120 degrees in 6 weeks. IMPAIRMENT: Improve Swelling of the Knee to <2.5cm in 6 weeks. OTHER: Patient will be able to properly demonstrate independence with HEP in 1 week. Patient Education: Quality of movement with patient demonstrated understanding. Post-Treatment Pain Scale: 0 Assessment: Patient had an expected response to treatment. Skilled Intervention demonstrated by modifications of treatment per exercise log including increased load and safety interventions per exercise log. Progress towards goals as expected. Plan for Next Visit: Treatment Visit with focus on ROM Wilbert Palomares PTA STATE LICENSE, [id number] documented in this [id number] History of Present illness Narrative* Georgi Coughlin PTA - 05/21/2021 11:30 AM EST [facility] REH[facility] DAILY TREATMENT NOTE Today's Date 05/21/2021 Patient Name: Brandon Muro Date of : 1945 Current Visit #: 9 Authorized Visits: 199 Case Name: S/P Right TKR History: Pre-Treatment Pain Scale: 2 Symptoms: stabilized Functional Diagnosis: 1. Status post total right knee replacement Clinical Information: Subjective: Pt reports min pain but min change in ROM Objective Performed Jt mobs, min pain noted ROM 5-113 Treatments: Physical Therapy Exercise Log - 05/21/21 1122 OTHER Precautions/Contraindications TKA 02/28/21 Notes visit [id number] Therapeutic Exercise (78509) Intervention SciFit - x5 min Lvl 3 Parameters step stretches - 20 sec x2 (calf, HS Lunges) 6 step Intervention Manual stretching into flexion to pt tolerance x30 mins Parameters oscillations, distraction and myofascial release x8 mins PT Treatment Times Therex Total Time 15 Manual Therapy Total Time 30 Direct Treatment Time 45 Total Treatment Time 50 Goals: Physical Therapy Ortho Goals: MOBILITY: Patient will be able to ambulate for 1 hour in community and ambulate on uneven surfaces without difficulty in 6 weeks. MOBILITY: Patient will be able to ascend/descend stairs without difficulty in 4 weeks. IMPAIRMENT: Improve pain from 10/10 to <4/10 during prolonged standing, walking and stair negotiation in 6 weeks IMPAIRMENT: Improve gross MMT of the Knee to at least 4+/5 in 6 weeks IMPAIRMENT: Improve AROM of the Knee to 0-120 degrees in 6 weeks. IMPAIRMENT: Improve Swelling of the Knee to <2.5cm in 6 weeks. OTHER: Patient will be able to properly demonstrate independence with HEP in 1 week. Patient Education: Verbal HEP with patient verbalized understanding. Post-Treatment Pain Scale: 2 Assessment: Patient had an expected response to treatment. Skilled Intervention demonstrated by modifications of treatment per exercise log including assessment of patient's response and safety interventions per exercise log. Progress towards goals as expected. Plan for Next Visit: Treatment Visit with focus on progressing as tolerated Georgi Coughlin PTA STATE LICENSE, [id number] documented in this [id number] History of Present illness Narrative* Tanja Mcdonald PTA - 05/19/2021 10:45 AM EST [facility] REH[facility] DAILY TREATMENT NOTE Today's Date 05/19/2021 Patient Name: Brandon Muro Date of : 1945 Current Visit #: 8 Authorized Visits: 199 Case Name: S/P Right TKR History: Pre-Treatment Pain Scale: 3 Symptoms: gradually improved Functional Diagnosis: 1. Status post total right knee replacement Clinical Information: Subjective: Her knee is feeling a tingling along the incision. Objective AAROM flexion 114 degrees. Treatments: Physical Therapy Exercise Log - 05/19/21 1223 OTHER Precautions/Contraindications TKA 02/28/21 Notes visit 27: 10:45-11:25 Therapeutic Exercise (42710) Intervention SciFit - x5 min Lvl 3 Parameters step stretches - 20 sec x2 (calf, HS Lunges) 6 step Intervention Manual stretching into flexion to pt tolerance x30 mins Parameters oscillations, distraction and myofascial release x8 mins PT Treatment Times Therex Total Time 45 Direct Treatment Time 45 Total Treatment Time 45 Goals: Physical Therapy Ortho Goals: MOBILITY: Patient will be able to ambulate for 1 hour in community and ambulate on uneven surfaces without difficulty in 6 weeks. MOBILITY: Patient will be able to ascend/descend stairs without difficulty in 4 weeks. IMPAIRMENT: Improve pain from 10/10 to <4/10 during prolonged standing, walking and stair negotiation in 6 weeks IMPAIRMENT: Improve gross MMT of the Knee to at least 4+/5 in 6 weeks IMPAIRMENT: Improve AROM of the Knee to 0-120 degrees in 6 weeks. IMPAIRMENT: Improve Swelling of the Knee to <2.5cm in 6 weeks. OTHER: Patient will be able to properly demonstrate independence with HEP in 1 week. Patient Education: Quality of movement with patient demonstrated understanding. Post-Treatment Pain Scale: 1 Assessment: Patient had an expected response to treatment. Skilled Intervention demonstrated by modifications of treatment per exercise log including increased intensity and safety interventions per exercise log. Progress towards goals as expected. Plan for Next Visit: Treatment Visit with focus on ROM Tanja Mcdonald PTA STATE LICENSE, [id number] documented in this [id number] History of Present illness Narrative* Tanja Mcdonald PTA - 05/16/2021 10:45 AM EST [facility] OUT[facility] REH[facility] DAILY TREATMENT NOTE Today's Date 05/16/2021 Patient Name: Brandon Muro Date of : 1945 Current Visit #: 7 Authorized Visits: 199 Case Name: S/P Right TKR History: Pre-Treatment Pain Scale: 4 Symptoms: gradually improved Functional Diagnosis: 1. Status post total right knee replacement Clinical Information: Subjective: She is feeling like it's looser Objective AAROM flexion 114 degrees. Treatments: Physical Therapy Exercise Log - 05/16/21 1132 OTHER Precautions/Contraindications TKA 02/28/21 Notes visit 26: 10:45-11:25 Therapeutic Exercise (41508) Intervention SciFit - x5 min Lvl 3 Parameters step stretches - 20 sec x2 (calf, HS Lunges) 6 step Intervention Manual stretching into flexion to pt tolerance x30 mins Parameters oscillations, distraction and myofascial release x8 mins PT Treatment Times Therex Total Time 40 Direct Treatment Time 40 Total Treatment Time 40 Goals: Physical Therapy Ortho Goals: MOBILITY: Patient will be able to ambulate for 1 hour in community and ambulate on uneven surfaces without difficulty in 6 weeks. MOBILITY: Patient will be able to ascend/descend stairs without difficulty in 4 weeks. IMPAIRMENT: Improve pain from 10/10 to <4/10 during prolonged standing, walking and stair negotiation in 6 weeks IMPAIRMENT: Improve gross MMT of the Knee to at least 4+/5 in 6 weeks IMPAIRMENT: Improve AROM of the Knee to 0-120 degrees in 6 weeks. IMPAIRMENT: Improve Swelling of the Knee to <2.5cm in 6 weeks. OTHER: Patient will be able to properly demonstrate independence with HEP in 1 week. Patient Education: Quality of movement with patient demonstrated understanding. Post-Treatment Pain Scale: 2 Assessment: Patient had an expected response to treatment. Skilled Intervention demonstrated by modifications of treatment per exercise log including increased intensity and safety interventions per exercise log. Progress towards goals as expected. Plan for Next Visit: Treatment Visit with focus on flexion/extension ROM Tanja Mcdonald PTA STATE LICENSE, [id number] documented in this [id number] History of Present illness Narrative* Wilbert Palomares PTA - 05/15/2021 7:45 AM EST [facility] REH[facility] DAILY TREATMENT NOTE Today's Date 05/15/2021 Patient Name: Brandon Muro Date of : 1945 Current Visit #: 6 Authorized Visits: 199 Case Name: S/P Right TKR History: Pre-Treatment Pain Scale: 0 Symptoms: gradually improved Functional Diagnosis: 1. Status post total right knee replacement Clinical Information: Subjective: Pt denies change in symptoms and med Hx. Overall feels like knee is loosened up a little more today. Compliant with HEP Objective Knee Right Knee Range of Motion: Flexion Passive: 116 Treatments: Physical Therapy Exercise Log - 05/15/21 0750 OTHER Precautions/Contraindications TKA 02/28/21 Notes visit 25: 7:50 - 7:30 Therapeutic Exercise (36981) Intervention SciFit - x5 min Lvl 3 Parameters step stretches - 20 sec x2 (calf, HS Lunges) 6 step Intervention Manual stretching into flexion to pt tolerance x30 mins Parameters oscillations, distraction and myofascial release x8 mins PT Treatment Times Therex Total Time 40 Direct Treatment Time 40 Total Treatment Time 40 Goals: Physical Therapy Ortho Goals: MOBILITY: Patient will be able to ambulate for 1 hour in community and ambulate on uneven surfaces without difficulty in 6 weeks. MOBILITY: Patient will be able to ascend/descend stairs without difficulty in 4 weeks. IMPAIRMENT: Improve pain from 10/10 to <4/10 during prolonged standing, walking and stair negotiation in 6 weeks IMPAIRMENT: Improve gross MMT of the Knee to at least 4+/5 in 6 weeks IMPAIRMENT: Improve AROM of the Knee to 0-120 degrees in 6 weeks. IMPAIRMENT: Improve Swelling of the Knee to <2.5cm in 6 weeks. OTHER: Patient will be able to properly demonstrate independence with HEP in 1 week. Patient Education: Quality of movement with patient demonstrated understanding. Post-Treatment Pain Scale: 0 Assessment: Patient had an expected response to treatment. Skilled Intervention demonstrated by modifications of treatment per exercise log including increased load and safety interventions per exercise log. Progress towards goals as expected. Plan for Next Visit: Treatment Visit with focus on ROM Wilbert Palomares PTA STATE LICENSE, [id number] documented in this [id number] NoteHNO ID: [id number] Author: Pilar Ferrer APRN.PROGRAM ADMINISTRATOR Service: ? Author Type: Nurse Practitioner Type: Progress Notes Filed: 05/14/2021 2:44 PM Note Text: .[facility]11-17-2021 NoteHNO ID: [id number] Author: Pilar Ferrer APRN.PROGRAM ADMINISTRATOR Service: ? Author Type: Nurse Practitioner Type: Progress Notes Filed: 05/14/2021 2:44 PM Note Text: Medicare Yearly Visit Medical B eligibilty date 08/26/2012 Date of last exam 02/07/2020 Brandon Muro is a 75 year old female who presents for her annual medicare wellness exam. PMH HTN, lupus, allergies, anxiety, depression, aortic stenosis. She was last seen 02/07/2020. Patient denies changes in health since last office visit. Reports feeling well. Denies concerns or complaints today. I reviewed her past medical, surgical, social, and family histories today and updated chart. Allergies, chronic medications, and supplements were also reviewed and her list is now up to date. HTN: Ms. Muro indicates that she is feeling well and denies any symptoms referable to elevated blood pressure. Specifically denies headache, chest pain, palpitations, dyspnea, peripheral edema, claudication symptoms, orthopnea, fatigue and PND. Patient denies any side effects of her medication(s) and is compliant with their regimen. She does not check BP's generally. Brandon denies regular aerobic exercise. She watches her diet for sodium, low fat and low cholesterol most of the time. She is taking losartan 100 mg daily, norvasc 5 mg daily, and HCTZ 12.5 mg. Last 3 Encounter BP Readings: Date: BP: 02/07/2020 122/76 03/21/2019 122/72 12/13/2018 122/70 Lupus: she is seeing Dr Rios for management. At last office visit on 01/30/20 her Plaquenil was increased to [address] Rios also had pt decrease HCTZ due to increase in creatinine. ? Depression and anxiety: she is taking Effexor daily for management. She reports her symptoms have been well managed with Effexor. She was started on Effexor after her in 2016. States anxiety has been controlled with effexor. 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 She reports she really enjoys going and keeps her mind off things. Reports concern she is now losing her job due to refusal to get COVID vaccinations. Denies feeling depressed or thoughts of suicide. ? Allergies: environmental, chronic. She is using flonase and allergy medication daily. Reports when her allergies are really bad she will use her albuterol inhaler due to feeling SOB which helps with her symptoms. She is former smoker as well.? ? CKD: She has history renal insuffiency and was seeing Dr Tyson in [place]. States she was taking medication for arthritis and once she went off it her kidneys improved. ? ? Preventative: Denies ever having a colonoscopy. Refuses to have one. She was sent cologuard in the past and admits to not completing this. Reports she wont do it. She has not received her COVID vaccine and is not interested in this. Reports she will be losing her job due refusal. She works at [employer]. Some elements of above documentation were copied from my progress note of 02/07/2020 and have been reexamined and updated where appropriate. All elements reflect the current assessment and medical decision making today . PAST MEDICAL HISTORY Diagnosis Date - Allergic rhinitis - DJD (degenerative joint disease) in the spine and knees - Drug-induced lupus erythematosus 10/2012 Pitavastatin (livalo). - GERD (gastroesophageal reflux disease) - Glaucoma 10/2013 Angular glaucoma with laser bilaterally. - Hypertension 1989 - Vitamin D deficiency PAST SURGICAL HISTORY Procedure Laterality Date - ANESTH, SECTION 1965 - APPENDECTOMY - CATARACT SURGERY, COMPLEX Bilateral 11/27/2019 - DELIVERY ONLY 1964,1965 - CHOLECYSTECTOMY - HEART CATHETERIZATION 1999 - LUMPECTOMY/RADIOTHERAPY DIAG MAMM/A10 - OPEN MINI-LAPAROTOMY W/LYSIS ADHESIONS - PAST SURGICAL HISTORY OF 10/2012 skin biopsy - PAST SURGICAL HISTORY OF 10/2013 laser for angular glaucoma - ROTATOR CUFF REPAIR right - TOTAL HIP REPLACEMENT 2010 ALLERGIES: Mold, Pitavastatin, Sulfa (Sulfonamide Antibiotics), Tape [Adhesive Tape (Rosins)], and Vicodin [Hydrocodone-Acetaminophen] Medications reviewed: Yes FAMILY HISTORY Problem Relation Age of Onset - Hypertension Mother - Cancer Mother Skin - Diabetes Mother - Hypertension Father - Cancer Father Skin - COPD Father - Heart Father - Diabetes Sister - Hypertension Brother - Hypertension Sister SOCIAL HISTORY: Social History Tobacco Use - Smoking status: Former Smoker Packs/day: 1.00 Years: 8.00 Pack years: 8.00 Quit date: 06/28/1980 Years since quittin.9 - Smokeless tobacco: Never Used - Tobacco comment: No one in household smokes Substance Use Topics - Alcohol use: No - Drug use: No Brandon works out regularly 5 times per week with walking. She watches her diet for sodium, low fat and low cholesterol most of the time, generally not very mu (more content not included)...[facility]11-15-2021 History of Present illness Narrative* Tanja Mcdonald, GUIDE DELEGATE - 05/12/2021 10:45 AM EST [facility] DAILY TREATMENT NOTE Today's Date 05/12/2021 Patient Name: Brandon Muro Date of : 1945 Current Visit #: 5 Authorized Visits: 199 Case Name: S/P Right TKR History: Pre-Treatment Pain Scale: 3 Symptoms: stabilized Functional Diagnosis: 1. Status post total right knee replacement Clinical Information: Subjective: She has really been working hard on her knee with HEP Objective AAROM flexion 116 degrees with manual stretches Treatments: Physical Therapy Exercise Log - 05/12/21 1207 OTHER Precautions/Contraindications TKA 02/28/21 Notes visit 24: 10:47 - 11:30 Therapeutic Exercise (00198) Intervention SciFit - x5 min Lvl 3 Parameters step stretches - 20 sec x2 (calf, HS Lunges) 6 step Intervention Manual stretching into flexion to pt tolerance x30 mins Parameters oscillations, distraction and myofascial release x8 mins PT Treatment Times Therex Total Time 12 Manual Therapy Total Time 30 Direct Treatment Time 42 Total Treatment Time 42 Goals: Physical Therapy Ortho Goals: MOBILITY: Patient will be able to ambulate for 1 hour in community and ambulate on uneven surfaces without difficulty in 6 weeks. MOBILITY: Patient will be able to ascend/descend stairs without difficulty in 4 weeks. IMPAIRMENT: Improve pain from 10/10 to <4/10 during prolonged standing, walking and stair negotiation in 6 weeks IMPAIRMENT: Improve gross MMT of the Knee to at least 4+/5 in 6 weeks IMPAIRMENT: Improve AROM of the Knee to 0-120 degrees in 6 weeks. IMPAIRMENT: Improve Swelling of the Knee to <2.5cm in 6 weeks. OTHER: Patient will be able to properly demonstrate independence with HEP in 1 week. Patient Education: Quality of movement with patient demonstrated understanding. Post-Treatment Pain Scale: 2 Assessment: Patient had an expected response to treatment. Skilled Intervention demonstrated by modifications of treatment per exercise log including increased intensity and safety interventions per exercise log. Progress towards goals as expected. Plan for Next Visit: Treatment Visit with focus on flexion Tanja Mcdonald PTA STATE LICENSE, [id number] documented in this [id number] History of Present illness Narrative* Wilbert Palomares PTA - 05/09/2021 10:45 AM EST [facility] DAILY TREATMENT NOTE Today's Date 05/09/2021 Patient Name: Brandon Muro Date of : 1945 Current Visit #: 4 Authorized Visits: 199 Case Name: S/P Right TKR History: Pre-Treatment Pain Scale: 1 Symptoms: stabilized Functional Diagnosis: 1. Status post total right knee replacement Clinical Information: Subjective: Pt reports knee sore today and stated was able to sleep a little better last night. Objective Treatments: Physical Therapy Exercise Log - 05/09/21 1047 OTHER Precautions/Contraindications TKA 9/3/21 Notes visit 23: 10:44 - 11:30 Therapeutic Exercise (75137) Intervention SciFit - x5 min Lvl 3 Parameters step stretches - 20 sec x2 (calf, HS Lunges) 6 step Intervention Manual stretching into flexion to pt tolerance x30 mins Parameters oscillations, distraction and myofascial release x8 mins PT Treatment Times Therex Total Time 37 Manual Therapy Total Time 8 Direct Treatment Time 45 Goals: Physical Therapy Ortho Goals: MOBILITY: Patient will be able to ambulate for 1 hour in community and ambulate on uneven surfaces without difficulty in 6 weeks. MOBILITY: Patient will be able to ascend/descend stairs without difficulty in 4 weeks. IMPAIRMENT: Improve pain from 10/10 to <4/10 during prolonged standing, walking and stair negotiation in 6 weeks IMPAIRMENT: Improve gross MMT of the Knee to at least 4+/5 in 6 weeks IMPAIRMENT: Improve AROM of the Knee to 0-120 degrees in 6 weeks. IMPAIRMENT: Improve Swelling of the Knee to <2.5cm in 6 weeks. OTHER: Patient will be able to properly demonstrate independence with HEP in 1 week. Patient Education: Quality of movement with patient demonstrated understanding. Post-Treatment Pain Scale: 1 Assessment: Patient had an expected response to treatment. Skilled Intervention demonstrated by modifications of treatment per exercise log including increased load and safety interventions per exercise log. Progress towards goals as expected. Plan for Next Visit: Treatment Visit with focus on ROM and stretching Wilbert Palomares PTA STATE LICENSE, [id number] documented in this [id number] History of Present illness Narrative* Clemencia Montes, PT - 05/05/2021 4:45 PM EST [facility] DAILY TREATMENT NOTE Today's Date 05/05/2021 Patient Name: Brandon Muro Date of : 1945 Current Visit #: 21 Authorized Visits: 199 Case Name: S/P Right TKR History: Pre-Treatment Pain Scale: 0 Symptoms: unchanged Functional Diagnosis: 1. Status post total right knee replacement Clinical Information: Subjective: Pt denies change in med hx. She verbalizes frustration and feeling disgusted over her progress and the possible need for manipulation d/t scar tissue. Objective Treatments: Physical Therapy Exercise Log - 05/05/21 1640 OTHER Precautions/Contraindications TKA 02/28/21 Notes visit 21: 4:42 - 5:27 Therapeutic Exercise (66647) Intervention SciFit - x5 min Lvl 3 Parameters step stretches - 20 sec x2 (calf, HS Lunges) 6 step, then wedge 20 x 3 Intervention Manual stretching into flexion to pt tolerance x30 mins Parameters oscillations, distraction and myofascial release x8 mins PT Treatment Times Therex Total Time 37 Manual Therapy Total Time 8 Direct Treatment Time 45 Total Treatment Time 45 Goals: Physical Therapy Ortho Goals: MOBILITY: Patient will be able to ambulate for 1 hour in community and ambulate on uneven surfaces without difficulty in 6 weeks. MOBILITY: Patient will be able to ascend/descend stairs without difficulty in 4 weeks. IMPAIRMENT: Improve pain from 10/10 to <4/10 during prolonged standing, walking and stair negotiation in 6 weeks IMPAIRMENT: Improve gross MMT of the Knee to at least 4+/5 in 6 weeks IMPAIRMENT: Improve AROM of the Knee to 0-120 degrees in 6 weeks. IMPAIRMENT: Improve Swelling of the Knee to <2.5cm in 6 weeks. OTHER: Patient will be able to properly demonstrate independence with HEP in 1 week. Patient Education: Quality of movement, HEP Adherence and Diagnosis and recovery specific educationwith patient verbalized understanding. Post-Treatment Pain Scale: 3 Assessment: Patient had an expected response to treatment. Skilled Intervention demonstrated by modifications of treatment per exercise log including assessment of patient's response and safety interventions per exercise log. Progress towards goals as expected. Plan for Next Visit: Treatment Visit with focus on flexion ROM Clemencia Montes PT State License, [id number] documented in this [id number] History of Present illness Narrative* Wilbert Palomares PTA - 05/02/2021 11:30 AM EDT [facility] DAILY TREATMENT NOTE Today's Date 05/02/2021 Patient Name: Brandon Muro Date of : 1945 Current Visit #: 1 Authorized Visits: 199 Case Name: S/P Right TKR History: Pre-Treatment Pain Scale: 1 Symptoms: stabilized Functional Diagnosis: 1. Status post total right knee replacement 2. Presence of right artificial knee joint Clinical Information: Subjective: Pt reports having follow up with MD and he wants aggressive therapy with focus on ROM rather than strengthening. Pt continues to have tightness and pain throughout day and not sleeping well. Objective Knee Right Knee Range of Motion: Flexion Passive: 105 Treatments: Physical Therapy Exercise Log - 05/02/21 1130 OTHER Precautions/Contraindications TKA 02/28/21 Notes visit 20: 11:30 - 12:15 Therapeutic Exercise (84210) Intervention SciFit - x5 min Lvl 3 Parameters step stretches - 20 sec x2 (calf, HS Lunges) 6 step, then wedge 20 x 3 Intervention Manula stretching - x30 Parameters -- Intervention -- Parameters -- Intervention -- Parameters -- Intervention -- Parameters -- Intervention -- Parameters -- Intervention -- Parameters -- Modalities Parameters 34 degrees 10' PT Treatment Times Therex Total Time 45 Direct Treatment Time 45 Total Treatment Time 45 Goals: Physical Therapy Ortho Goals: MOBILITY: Patient will be able to ambulate for 1 hour in community and ambulate on uneven surfaces without difficulty in 6 weeks. MOBILITY: Patient will be able to ascend/descend stairs without difficulty in 4 weeks. IMPAIRMENT: Improve pain from 10/10 to <4/10 during prolonged standing, walking and stair negotiation in 6 weeks IMPAIRMENT: Improve gross MMT of the Knee to at least 4+/5 in 6 weeks IMPAIRMENT: Improve AROM of the Knee to 0-120 degrees in 6 weeks. IMPAIRMENT: Improve Swelling of the Knee to <2.5cm in 6 weeks. OTHER: Patient will be able to properly demonstrate independence with HEP in 1 week. Patient Education: Quality of movement with patient demonstrated understanding. Post-Treatment Pain Scale: 2 Assessment: Patient had an expected response to treatment. Skilled Intervention demonstrated by modifications of treatment per exercise log including increased load and safety interventions per exercise log. Progress towards goals as expected. Plan for Next Visit: Treatment Visit with focus on aggressive ROM per MD Wilbert Palomares PTA STATE LICENSE, [id number] documented in this [id number] History of Present illness Narrative* Tanja Mcdonald PTA - 04/25/2021 1:45 PM EDT [facility] DAILY TREATMENT NOTE Today's Date 04/25/2021 Patient Name: Brandon Muro Date of : 1945 Current Visit #: 20 Authorized Visits: 199 Case Name: S/P Right TKR History: Pre-Treatment Pain Scale: 3 Symptoms: stabilized Functional Diagnosis: 1. Status post total right knee replacement Clinical Information: Subjective: Her knee is still having a lot of pain at times. Keeps her up all night. She will see the Doctor on May 01. Objective FOTO 59. Struggles with descending stairs. MMT 4+/5 flex/ext AAROM 105 degrees. Treatments: Physical Therapy Exercise Log - 04/25/21 1534 OTHER Precautions/Contraindications TKA 02/28/21 Notes visit 19: 1:45-2:25 Therapeutic Exercise ([id number]) Intervention SciFit - x5 min Lvl 3 Parameters step stretches - 20 sec x2 (calf, HS Lunges) 6 step, then wedge 20 x 3 Intervention TKE - x15 BTB Parameters BOSU step-ups x15 fwd, lat Intervention lunges into BOSU x15 each Parameters Steamboats - x10 L stance only Intervention lat ambulation - 30 x 1 lap Parameters shuttle 50# x20 25# R x20 Intervention HS curls, LAQ -2 x 10 RTB Parameters quad sets 5 hold x 10 Intervention SLR x10 Parameters heel slides - x10 Intervention MET - x6 Parameters descending staircase x1 Modalities Parameters 34 degrees 10' PT Treatment Times Therex Total Time 40 Direct Treatment Time 40 Total Treatment Time 40 Goals: Physical Therapy Ortho Goals: MOBILITY: Patient will be able to ambulate for 1 hour in community and ambulate on uneven surfaces without difficulty in 6 weeks. MOBILITY: Patient will be able to ascend/descend stairs without difficulty in 4 weeks. IMPAIRMENT: Improve pain from 10/10 to <4/10 during prolonged standing, walking and stair negotiation in 6 weeks IMPAIRMENT: Improve gross MMT of the Knee to at least 4+/5 in 6 weeks IMPAIRMENT: Improve AROM of the Knee to 0-120 degrees in 6 weeks. IMPAIRMENT: Improve Swelling of the Knee to <2.5cm in 6 weeks. OTHER: Patient will be able to properly demonstrate independence with HEP in 1 week. Patient Education: Quality of movement with patient demonstrated understanding. Post-Treatment Pain Scale: 3 Assessment: Patient had an expected response to treatment. Skilled Intervention demonstrated by modifications of treatment per exercise log including increased intensity and safety interventions per exercise log. Progress towards goals as expected. Plan for Next Visit: Hold with further evaluation from surgeon. Tanja Mcdonald PTA STATE LICENSE, [id number] documented in this [id number] History of Present illness Narrative* Tanja Mcdonald PTA - 04/23/2021 11:30 AM EDT [facility] DAILY TREATMENT NOTE Today's Date 04/23/2021 Patient Name: Brandon Muro Date of : 1945 Current Visit #: 19 Authorized Visits: 199 Case Name: S/P Right TKR History: Pre-Treatment Pain Scale: 4 Symptoms: stabilized Functional Diagnosis: 1. Status post total right knee replacement Clinical Information: Subjective: Her pain is slowly getting worse. She can sometimes get it to 0/10 but not very often. Objective AAROM flexion 110 degrees with end range tightness. Treatments: Physical Therapy Exercise Log - 04/23/21 1217 OTHER Precautions/Contraindications TKA 02/28/21 Notes visit 18: 11:30-12:10 Therapeutic Exercise (15530) Intervention SciFit - x5 min Lvl 3 Parameters step stretches - 20 sec x2 (calf, HS Lunges) 6 step, then wedge 20 x 3 Intervention TKE - x15 BTB Parameters BOSU step-ups x15 fwd, lat Intervention lunges into BOSU x15 each Parameters Steamboats - x10 L stance only Intervention lat ambulation - 30 x 1 lap Parameters shuttle 50# x20 25# R x20 Intervention HS curls, LAQ -2 x 10 RTB Parameters quad sets 5 hold x 10 Intervention SLR x10 Parameters heel slides - x10 Intervention MET - x6 Parameters descending staircase x1 Modalities Parameters 34 degrees 10' PT Treatment Times Therex Total Time 40 Direct Treatment Time 40 Total Treatment Time 40 Goals: Physical Therapy Ortho Goals: MOBILITY: Patient will be able to ambulate for 1 hour in community and ambulate on uneven surfaces without difficulty in 6 weeks. MOBILITY: Patient will be able to ascend/descend stairs without difficulty in 4 weeks. IMPAIRMENT: Improve pain from 10 to <4/10 during prolonged standing, walking and stair negotiation in 6 weeks IMPAIRMENT: Improve gross MMT of the Knee to at least 4+/5 in 6 weeks IMPAIRMENT: Improve AROM of the Knee to 0-120 degrees in 6 weeks. IMPAIRMENT: Improve Swelling of the Knee to <2.5cm in 6 weeks. OTHER: Patient will be able to properly demonstrate independence with HEP in 1 week. Patient Education: Quality of movement with patient demonstrated understanding. Post-Treatment Pain Scale: 3 Assessment: Patient had an expected response to treatment. Skilled Intervention demonstrated by modifications of treatment per exercise log including increased intensity and safety interventions per exercise log. Progress towards goals as expected. Plan for Next Visit: Treatment Visit with focus on strengthening and pain control Tanja Mcdonald PTA STATE LICENSE, [id number] documented in this [id number] History of Present illness Narrative* Tanja Mcdonald PTA - 04/21/2021 11:30 AM EDT [facility] DAILY TREATMENT NOTE Today's Date 04/21/2021 Patient Name: Brandon Muro Date of : 1945 Current Visit #: 18 Authorized Visits: 199 Case Name: S/P Right TKR History: Pre-Treatment Pain Scale: 6 Symptoms: gradually worsened Functional Diagnosis: 1. Status post total right knee replacement Clinical Information: Subjective: Her knee/calf have been very achy over the weekend. She was on her feet a lot yesterday. Objective AAROM flexion 105 degrees. Treatments: Physical Therapy Exercise Log - 04/21/21 1226 OTHER Precautions/Contraindications TKA 02/28/21 Notes visit 17: 11:30-12:15 Therapeutic Exercise ([id number]) Intervention SciFit - x5 min Lvl 3 Parameters step stretches - 20 sec x2 (calf, HS Lunges) 6 step, then wedge 20 x 3 Intervention TKE - x15 BTB Parameters BOSU step-ups x15 fwd, lat Intervention lunges into BOSU x15 each Parameters Steamboats - x10 L stance only Intervention lat ambulation - 30 x 1 lap Parameters shuttle 50# x20 25# R x20 Intervention HS curls, LAQ -2 x 10 RTB Parameters quad sets 5 hold x 10 Intervention SLR x10 Parameters heel slides - x10 Intervention MET - x6 Parameters descending staircase x1 Modalities Modalities Vasopneumatic Treatment Parameters 34 degrees 10' PT Treatment Times Therex Total Time 35 Modalities Total Time 10 Direct Treatment Time 45 Total Treatment Time 45 Goals: Physical Therapy Ortho Goals: MOBILITY: Patient will be able to ambulate for 1 hour in community and ambulate on uneven surfaces without difficulty in 6 weeks. MOBILITY: Patient will be able to ascend/descend stairs without difficulty in 4 weeks. IMPAIRMENT: Improve pain from 10/10 to <4/10 during prolonged standing, walking and stair negotiation in 6 weeks IMPAIRMENT: Improve gross MMT of the Knee to at least 4+/5 in 6 weeks IMPAIRMENT: Improve AROM of the Knee to 0-120 degrees in 6 weeks. IMPAIRMENT: Improve Swelling of the Knee to <2.5cm in 6 weeks. OTHER: Patient will be able to properly demonstrate independence with HEP in 1 week. Patient Education: Quality of movement with patient demonstrated understanding. Post-Treatment Pain Scale: 4 Assessment: Patient had an expected response to treatment. Skilled Intervention demonstrated by modifications of treatment per exercise log including increased intensity and safety interventions per exercise log. Progress towards goals as expected. Plan for Next Visit: Treatment Visit with focus on ROM Tanja Mcdonald PTA STATE LICENSE, [id number] documented in this [id number] History of Present illness Narrative* Tanja Mcdonald PTA - 04/07/2021 1:00 PM EDT [facility] DAILY TREATMENT NOTE Today's Date 04/07/2021 Patient Name: Brandon Muro Date of : 1945 Current Visit #: 12 Authorized Visits: 199 Case Name: S/P Right TKR History: Pre-Treatment Pain Scale: 3 Symptoms: gradually improved Functional Diagnosis: 1. Status post total right knee replacement Clinical Information: Subjective: Her knee is very stiff today. Objective AAROM flexion 105 degrees. Treatments: Physical Therapy Exercise Log - 04/07/21 1341 OTHER Precautions/Contraindications TKA 02/28/21 Notes visit 11: 1:00-1:35 Therapeutic Exercise (92069) Intervention SciFit - x8 min Lvl 3 Parameters step stretches - 20 sec x2 (calf, HS Lunges) 6 step, then wedge 20 x 3 Intervention shuttle 50# x20 25# R x20 Parameters 6 step-ups x10 retro Intervention lunges into BOSU x10 each Parameters lat ambulation - 30 x 1 lap Intervention HS curls, LAQ -2 x 10 RTB Parameters quad sets 5 hold x 10 Intervention SLR x10 Parameters heel slides - x15 no strap PT Treatment Times Therex Total Time 35 Direct Treatment Time 35 Total Treatment Time 35 Goals: Physical Therapy Ortho Goals: MOBILITY: Patient will be able to ambulate for 1 hour in community and ambulate on uneven surfaces without difficulty in 6 weeks. MOBILITY: Patient will be able to ascend/descend stairs without difficulty in 4 weeks. IMPAIRMENT: Improve pain from 10/10 to <4/10 during prolonged standing, walking and stair negotiation in 6 weeks IMPAIRMENT: Improve gross MMT of the Knee to at least 4+/5 in 6 weeks IMPAIRMENT: Improve AROM of the Knee to 0-120 degrees in 6 weeks. IMPAIRMENT: Improve Swelling of the Knee to <2.5cm in 6 weeks. OTHER: Patient will be able to properly demonstrate independence with HEP in 1 week. Patient Education: Quality of movement with patient demonstrated understanding. Post-Treatment Pain Scale: 2 Assessment: Patient had an expected response to treatment. Skilled Intervention demonstrated by modifications of treatment per exercise log including increased intensity and safety interventions per exercise log. Progress towards goals as expected. Plan for Next Visit: Treatment Visit with focus on ROM Tanja Mcdonald PTA STATE LICENSE, [id number] documented in this [id number] History of Present illness Narrative* Tanja Mcdonald PTA - 04/04/2021 1:00 PM EDT [facility] OUT[facility] REH[facility]IL[facility] DAILY TREATMENT NOTE Today's Date 04/04/2021 Patient Name: Brandon Muro Date of : 1945 Current Visit #: 11 Authorized Visits: 199 Case Name: S/P Right TKR History: Pre-Treatment Pain Scale: 2 Symptoms: gradually improved Functional Diagnosis: 1. Status post total right knee replacement Clinical Information: Subjective: she was able to come up the steps easier today. Objective AAROM flexion 105 degrees. Treatments: Physical Therapy Exercise Log - 04/04/21 1352 OTHER Precautions/Contraindications TKA 02/28/21 Notes visit 10: 1:00-1:40 Therapeutic Exercise ([id number]) Intervention SciFit - x8 min Lvl 3 Parameters step stretches - 20 sec x2 (calf, HS Lunges) 6 step, then wedge 20 x 3 Intervention shuttle 50# x20 25# R x20 Parameters 6 step-ups x10 retro Intervention lunges into BOSU x10 each Parameters lat ambulation - 30 x 1 lap Intervention HS curls, LAQ -2 x 10 RTB Parameters quad sets 5 hold x 10 Intervention SLR x10 Parameters heel slides - x15 no strap PT Treatment Times Therex Total Time 35 Direct Treatment Time 35 Total Treatment Time 35 Goals: Physical Therapy Ortho Goals: MOBILITY: Patient will be able to ambulate for 1 hour in community and ambulate on uneven surfaces without difficulty in 6 weeks. MOBILITY: Patient will be able to ascend/descend stairs without difficulty in 4 weeks. IMPAIRMENT: Improve pain from 10/10 to <4/10 during prolonged standing, walking and stair negotiation in 6 weeks IMPAIRMENT: Improve gross MMT of the Knee to at least 4+/5 in 6 weeks IMPAIRMENT: Improve AROM of the Knee to 0-120 degrees in 6 weeks. IMPAIRMENT: Improve Swelling of the Knee to <2.5cm in 6 weeks. OTHER: Patient will be able to properly demonstrate independence with HEP in 1 week. Patient Education: Quality of movement with patient demonstrated understanding. Post-Treatment Pain Scale: 2 Assessment: Patient had an expected response to treatment. Skilled Intervention demonstrated by modifications of treatment per exercise log including increased intensity and safety interventions per exercise log. Progress towards goals as expected. Plan for Next Visit: Treatment Visit with focus on flexion Tanja Mcdonald PTA STATE LICENSE, [id number] documented in this [id number] NoteHNO ID: [id number] Author: Sera Ramos Service: ? Author Type: ? Type: Progress Notes Filed: 04/02/2021 11:34 AM Note Text: POPULATION HEALTH NAVIGATION OUTREACH Action/FYI Contact made with patient or family member? YES Pt identified by name and : YES Outreach Outcome/Action Spoke to patient or caregiver: Patient scheduled Patient does have Advance Directive at home. Going to bring into PCP office to scan into chart. Reason for Outreach Care Gap or Scheduling/Wellness visits Payer: Payor: MEDICARE / Plan: MEDICARE A AND B / Product Type: Medicare / Care Gap Reviewed:: Annual Wellness visit Reminder: Reminder note to check Health Maintenance for items below Health Maintenance items due: COVID-19 VACCINE(1) Never done HEPATITIS C SCREENING Never done BP CONTROLLED (<130/80) Never done DTAP,TDAP,TD(1 - Tdap) Never done COLORECTAL CANCER SCREENING Never done SHINGRIX VACCINE(1 of 2) Never done DEPRESSION SCREENING due on 08/02/2019 MAMMOGRAM due on 09/14/2019 ANNUAL PCP TEAM CHRONIC DISEASE VISIT due on 02/06/2021 INFLUENZA(1) due on 02/26/2021 Advanced Directives Completed: Have you ever planned for future healthcare decisions with a power of deputy commonwealth's attorney, living will, or advance directives? Yes. Have you shared those records with your doctor? No Referrals: N/A Message Sent to Practice: NO Navigation Signature: Sera Ramos April 02, 2021 11:11 [facility]10-06-2021 NoteHNO ID: [id number] Author: Sera Ramos Service: ? Author Type: ? Type: Progress Notes Filed: 04/02/2021 11:09 AM Note Text: POPULATION HEALTH NAVIGATION OUTREACH Action/FYI Contact made with patient or family member? NO Pt identified by name and : NO Outreach Outcome/Action Unable to reach patient: Left message NodePinghart message sent Reason for Outreach Care Gap or Scheduling/Wellness visits Payer: Payor: MEDICARE / Plan: MEDICARE A AND B / Product Type: Medicare / Care Gap Reviewed:: Annual Wellness visit Breast Cancer screening Controlling Blood Pressure Colorectal Cancer Screening Reminder: Reminder note to check Health Maintenance for items below Health Maintenance items due: COVID-19 VACCINE(1) Never done HEPATITIS C SCREENING Never done BP CONTROLLED (<130/80) Never done DTAP,TDAP,TD(1 - Tdap) Never done COLORECTAL CANCER SCREENING Never done SHINGRIX VACCINE(1 of 2) Never done DEPRESSION SCREENING due on 08/02/2019 MAMMOGRAM due on 09/14/2019 ANNUAL PCP TEAM CHRONIC DISEASE VISIT due on 02/06/2021 INFLUENZA(1) due on 02/26/2021 Advanced Directives Completed: Have you ever planned for future healthcare decisions with a power of deputy commonwealth's attorney, living will, or advance directives? Unknown Referrals: N/A Message Sent to Practice: NO Navigation Signature: Sera Ramos April 02, 2021 11:08 [facility]10-04-2021 History of Present illness Narrative* Tanja Mcdonald, GUIDE DELEGATE - 03/31/2021 1:00 PM EDT [facility] OUTPATIENT REHABIL[facility] DAILY TREATMENT NOTE Today's Date 03/31/2021 Patient Name: Brandon Muro Date of : 1945 Current Visit #: 9 Authorized Visits: 199 Case Name: S/P Right TKR History: Pre-Treatment Pain Scale: 2 Symptoms: gradually improved Functional Diagnosis: 1. Status post total right knee replacement Clinical Information: Subjective: She has a Lot of stiffness and tightness today. She came up the stairs today for therapy Objective AAROM flexion 103 degrees. Treatments: Physical Therapy Exercise Log - 03/31/21 1341 OTHER Precautions/Contraindications TKA 02/28/21 Notes visit 8: 1:00-1:40 Therapeutic Exercise ([id number]) Intervention SciFit - x8 min Lvl 3 Parameters step stretches - 20 sec x2 (calf, HS Lunges) 6 step, then wedge 20 x 3 Intervention shuttle 50# x20 25# R x20 Parameters 6 step-ups x10 retro Intervention lunges into BOSU x10 each Parameters lat ambulation - 30 x 1 lap Intervention HS curls, LAQ -2 x 10 RTB Parameters quad sets 5 hold x 10 Intervention SLR x10 Parameters heel slides - x15 no strap Modalities Modalities Vasopneumatic Treatment Parameters x10 min low compression PT Treatment Times Therex Total Time 30 Modalities Total Time 10 Direct Treatment Time 40 Total Treatment Time 40 Goals: Physical Therapy Ortho Goals: MOBILITY: Patient will be able to ambulate for 1 hour in community and ambulate on uneven surfaces without difficulty in 6 weeks. MOBILITY: Patient will be able to ascend/descend stairs without difficulty in 4 weeks. IMPAIRMENT: Improve pain from 10/10 to <4/10 during prolonged standing, walking and stair negotiation in 6 weeks IMPAIRMENT: Improve gross MMT of the Knee to at least 4+/5 in 6 weeks IMPAIRMENT: Improve AROM of the Knee to 0-120 degrees in 6 weeks. IMPAIRMENT: Improve Swelling of the Knee to <2.5cm in 6 weeks. OTHER: Patient will be able to properly demonstrate independence with HEP in 1 week. Patient Education: Quality of movement with patient demonstrated understanding. Post-Treatment Pain Scale: 3 Assessment: Patient had an expected response to treatment. Skilled Intervention demonstrated by modifications of treatment per exercise log including increased intensity and safety interventions per exercise log. Progress towards goals as expected. Plan for Next Visit: Treatment Visit with focus on ROM Tanja Mcdonald PTA STATE LICENSE, [id number] documented in this [id number] History of Present illness Narrative* Tanja Mcdonald PTA - 03/26/2021 1:00 PM EDT [facility] REH[facility] DAILY TREATMENT NOTE Today's Date 03/26/2021 Patient Name: Brandon Muro Date of : 1945 Current Visit #: 8 Authorized Visits: 199 Case Name: S/P Right TKR History: Pre-Treatment Pain Scale: 2 Symptoms: gradually improved Functional Diagnosis: 1. Status post total right knee replacement Clinical Information: Subjective: Her knee is very stiff today. She feels like it's needing some extra stretching. Objective AAROM flexion 100 degrees. PROM ext -3 degrees with overpressure. Treatments: Physical Therapy Exercise Log - 03/26/21 1336 OTHER Precautions/Contraindications TKA 02/28/21 Notes visit 7: 1:00-1:40 Therapeutic Exercise ([id number]) Intervention SciFit - x8 min Lvl 3 Parameters step stretches - 20 sec x2 (calf, HS Lunges) 6 step, then wedge 20 x 3 Intervention shuttle 50# x20 25# R x20 Parameters 6 step-ups x10 retro Intervention lunges into BOSU x10 each Parameters lat ambulation - 30 x 1 lap Intervention HS curls, LAQ -2 x 10 RTB Parameters quad sets 5 hold x 10 Intervention SLR x10 Parameters heel slides - x15 no strap Modalities Modalities Vasopneumatic Treatment Parameters x10 min low compression PT Treatment Times Therex Total Time 35 Modalities Total Time 10 Direct Treatment Time 45 Total Treatment Time 45 Goals: Physical Therapy Ortho Goals: MOBILITY: Patient will be able to ambulate for 1 hour in community and ambulate on uneven surfaces without difficulty in 6 weeks. MOBILITY: Patient will be able to ascend/descend stairs without difficulty in 4 weeks. IMPAIRMENT: Improve pain from 10/10 to <4/10 during prolonged standing, walking and stair negotiation in 6 weeks IMPAIRMENT: Improve gross MMT of the Knee to at least 4+/5 in 6 weeks IMPAIRMENT: Improve AROM of the Knee to 0-120 degrees in 6 weeks. IMPAIRMENT: Improve Swelling of the Knee to <2.5cm in 6 weeks. OTHER: Patient will be able to properly demonstrate independence with HEP in 1 week. Patient Education: Quality of movement with patient demonstrated understanding. Post-Treatment Pain Scale: 1 Assessment: Patient had an expected response to treatment. Skilled Intervention demonstrated by modifications of treatment per exercise log including increased load and decreased rest breaks and safety interventions per exercise log. Progress towards goals as expected. Plan for Next Visit: Treatment Visit with focus on pain control and AROM Tanja Mcdonald PTA STATE LICENSE, [id number] documented in this [id number] History of Present illness Narrative* Tanja Mcdonald PTA - 03/24/2021 1:00 PM EDT [facility] OUTPAT[facility] REH[facility]IL[facility] DAILY TREATMENT NOTE Today's Date 03/24/2021 Patient Name: Brandon Muro Date of : 1945 Current Visit #: 7 Authorized Visits: 199 Case Name: S/P Right TKR History: Pre-Treatment Pain Scale: 2 Symptoms: gradually improved Functional Diagnosis: 1. Status post total right knee replacement Clinical Information: Subjective: she had a really painful day yesterday.04/06. she had less pain after meds. Objective AAROM flexion 105, AROM flexion 103 degrees. She came up the flight of stairs before treatment today. Treatments: Physical Therapy Exercise Log - 03/24/21 1335 OTHER Precautions/Contraindications TKA 02/28/21 Notes visit 6: 1:00-1:40 Therapeutic Exercise ([id number]) Intervention SciFit - x8 min Lvl 3 Parameters step stretches - 20 sec x2 (calf, HS Lunges) 6 step, then wedge 20 x 3 Intervention shuttle 50# x20 25# R x20 Parameters 6 step-ups x10 retro Intervention lunges into BOSU x10 each Parameters lat ambulation - 30 x 1 lap Intervention HS curls, LAQ -2 x 10 RTB Parameters quad sets 5 hold x 10 Intervention SLR x10 Parameters heel slides - x15 no strap Modalities Modalities Vasopneumatic Treatment Parameters x10 min low compression PT Treatment Times Therex Total Time 30 Modalities Total Time 10 Direct Treatment Time 40 Total Treatment Time 40 Goals: Physical Therapy Ortho Goals: MOBILITY: Patient will be able to ambulate for 1 hour in community and ambulate on uneven surfaces without difficulty in 6 weeks. MOBILITY: Patient will be able to ascend/descend stairs without difficulty in 4 weeks. IMPAIRMENT: Improve pain from 10/10 to <4/10 during prolonged standing, walking and stair negotiation in 6 weeks IMPAIRMENT: Improve gross MMT of the Knee to at least 4+/5 in 6 weeks IMPAIRMENT: Improve AROM of the Knee to 0-120 degrees in 6 weeks. IMPAIRMENT: Improve Swelling of the Knee to <2.5cm in 6 weeks. OTHER: Patient will be able to properly demonstrate independence with HEP in 1 week. Patient Education: Quality of movement with patient demonstrated understanding. Post-Treatment Pain Scale: 2 Assessment: Patient had an expected response to treatment. Skilled Intervention demonstrated by modifications of treatment per exercise log including increased intensity and safety interventions per exercise log. Progress towards goals as expected. Plan for Next Visit: Treatment Visit with focus on ROM Tanja Mcdonald PTA STATE LICENSE, [id number] documented in this [id number] History of Present illness Narrative* Tanja Mcdonald PTA - 03/21/2021 1:00 PM EDT [facility] OUT[facility] REH[facility] DAILY TREATMENT NOTE Today's Date 03/21/2021 Patient Name: Brandon Muro Date of : 1945 Current Visit #: 6 Authorized Visits: 199 Case Name: S/P Right TKR History: Pre-Treatment Pain Scale: 3 Symptoms: gradually improved Functional Diagnosis: 1. Status post total right knee replacement Clinical Information: Subjective: Her knee is improving but slowly Objective AAROM flexion 98 degrees. Initiated stairs with pain increase with descending. Treatments: Physical Therapy Exercise Log - 03/21/21 1424 OTHER Precautions/Contraindications TKA 02/28/21 Notes visit 5: 1:00-1:40 Therapeutic Exercise ([id number]) Intervention SciFit - x8 min Lvl 3 Parameters step stretches - 20 sec x2 (calf, HS Lunges) 6 step, then wedge 20 x 3 Intervention shuttle 50# x20 25# R x20 Parameters 4 step-ups x10 Intervention lunges into BOSU x10 each Parameters lat ambulation - 30 x 1 lap Intervention HS curls, LAQ -2 x 10 RTB Parameters quad sets 5 hold x 10 Intervention SLR x10 Parameters heel slides - x15 no strap Modalities Modalities Vasopneumatic Treatment Parameters x10 min low compression PT Treatment Times Therex Total Time 35 Modalities Total Time 10 Direct Treatment Time 45 Total Treatment Time 45 Goals: Physical Therapy Ortho Goals: MOBILITY: Patient will be able to ambulate for 1 hour in community and ambulate on uneven surfaces without difficulty in 6 weeks. MOBILITY: Patient will be able to ascend/descend stairs without difficulty in 4 weeks. IMPAIRMENT: Improve pain from 10/10 to <4/10 during prolonged standing, walking and stair negotiation in 6 weeks IMPAIRMENT: Improve gross MMT of the Knee to at least 4+/5 in 6 weeks IMPAIRMENT: Improve AROM of the Knee to 0-120 degrees in 6 weeks. IMPAIRMENT: Improve Swelling of the Knee to <2.5cm in 6 weeks. OTHER: Patient will be able to properly demonstrate independence with HEP in 1 week. Patient Education: Quality of movement with patient demonstrated understanding. Post-Treatment Pain Scale: 2 Assessment: Patient had an expected response to treatment. Skilled Intervention demonstrated by modifications of treatment per exercise log including increased intensity and safety interventions per exercise log. Progress towards goals as expected. Plan for Next Visit: Treatment Visit with focus on pain control Tanja Mcdonald PTA STATE LICENSE, [id number] documented in this [id number] History of Present illness Narrative* Tanja Mcdonald PTA - 03/19/2021 1:00 PM EDT [facility] OUT[facility] REH[facility]IL[facility] DAILY TREATMENT NOTE Today's Date 03/19/2021 Patient Name: Brandon Muro Date of : 1945 Current Visit #: 5 Authorized Visits: 199 Case Name: S/P Right TKR History: Pre-Treatment Pain Scale: 3 Symptoms: gradually improved Functional Diagnosis: 1. Status post total right knee replacement Clinical Information: Subjective: she just got her clive out last Wednesday and is doing better. Objective Increased intensity with exercises to progress patient with good tolerance. Treatments: Physical Therapy Exercise Log - 03/19/21 1505 OTHER Precautions/Contraindications TKA 02/28/21 Notes visit 4: 1:00-1:40 Therapeutic Exercise ([id number]) Intervention SciFit - x5 min Lvl 3 Parameters step stretches - 20 sec x2 (calf, HS Lunges) 6 step, then wedge 20 x 3 Intervention shuttle 50# x20 25# R x20 Parameters 4 step-ups x10 Intervention lunges into BOSU x10 each Parameters lat ambulation - 30 x 1 lap Intervention HS curls, LAQ -2 x 10 RTB Parameters quad sets 5 hold x 10 Intervention SLR x10 Parameters heel slides - x15 no strap Modalities Modalities Vasopneumatic Treatment Parameters x10 min low compression PT Treatment Times Therex Total Time 30 Modalities Total Time 10 Direct Treatment Time 40 Total Treatment Time 40 Goals: Physical Therapy Ortho Goals: MOBILITY: Patient will be able to ambulate for 1 hour in community and ambulate on uneven surfaces without difficulty in 6 weeks. MOBILITY: Patient will be able to ascend/descend stairs without difficulty in 4 weeks. IMPAIRMENT: Improve pain from 10/10 to <4/10 during prolonged standing, walking and stair negotiation in 6 weeks IMPAIRMENT: Improve gross MMT of the Knee to at least 4+/5 in 6 weeks IMPAIRMENT: Improve AROM of the Knee to 0-120 degrees in 6 weeks. IMPAIRMENT: Improve Swelling of the Knee to <2.5cm in 6 weeks. OTHER: Patient will be able to properly demonstrate independence with HEP in 1 week. Patient Education: Quality of movement with patient demonstrated understanding. Post-Treatment Pain Scale: 1 Assessment: Patient had an expected response to treatment. Skilled Intervention demonstrated by modifications of treatment per exercise log including increased intensity and safety interventions per exercise log. Progress towards goals as expected. Plan for Next Visit: Treatment Visit with focus on strengthening and AROM Tanja Mcdonald PTA STATE LICENSE, [id number] documented in this [id number] History of Present illness Narrative* Clemencia Montes, PT - 03/12/2021 1:00 PM EDT [facility] OUTPATIENT REHABIL[facility]ATION DAILY TREATMENT NOTE Today's Date 03/12/2021 Patient Name: Brandon Muro Date of : 1945 Current Visit #: 3 Authorized Visits: 199 Case Name: S/P Right TKR History: Pre-Treatment Pain Scale: 5 Symptoms: gradually improved Functional Diagnosis: 1. Status post total right knee replacement Clinical Information: Subjective: Pt denies change in med hx. She reports increased pain earlier today but is feeling better now. She states her clive are starting to become more annoying and feel restricting across theskin with flexion. Objective Treatments: Physical Therapy Exercise Log - 03/12/21 1302 OTHER Precautions/Contraindications TKA 02/28/21 Notes Visit 2: 1:03 - 2:00 Therapeutic Exercise ([id number]) Intervention SciFit - x5 min Lvl 3 Parameters step stretches - 20 sec x2 (calf, HS Lunges) Intervention rocker board fwd/retro and lat. x10 Parameters 4 step-ups x10 Intervention Sink ex - x10 bilat Parameters lat ambulation - 15' x4 - NT Intervention HS curls, LAQ - x 10 RTB - NT Parameters quad sets - x10 5 sec hold Intervention SLR x10 Parameters heel slides - x15 no strap Intervention hip add - x15 ball - NT Parameters -- Modalities Modalities Vasopneumatic Treatment Parameters x10 min low compression PT Treatment Times Therex Total Time 45 Modalities Total Time 10 Direct Treatment Time 55 Total Treatment Time 57 Goals: Physical Therapy Ortho Goals: MOBILITY: Patient will be able to ambulate for 1 hour in community and ambulate on uneven surfaces without difficulty in 6 weeks. MOBILITY: Patient will be able to ascend/descend stairs without difficulty in 4 weeks. IMPAIRMENT: Improve pain from 10/10 to <4/10 during prolonged standing, walking and stair negotiation in 6 weeks IMPAIRMENT: Improve gross MMT of the Knee to at least 4+/5 in 6 weeks IMPAIRMENT: Improve AROM of the Knee to 0-120 degrees in 6 weeks. IMPAIRMENT: Improve Swelling of the Knee to <2.5cm in 6 weeks. OTHER: Patient will be able to properly demonstrate independence with HEP in 1 week. Patient Education: Quality of movement, HEP Adherence and Pain Management with patient verbalized understanding. Post-Treatment Pain Scale: 3 Assessment: Patient had an expected response to treatment. Skilled Intervention demonstrated by modifications of treatment per exercise log including increased intensity and modalities as indicated and safety interventions per exercise log. Progress towards goals as expected. Plan for Next Visit: Treatment Visit with focus on AROM, strengthening and mobility Clemencia Montes PT State License, [id number] documented in this [id number] History of Present illness Narrative* Clemencia Montes PT - 03/04/2021 2:30 PM EDT [facility] Evaluation Today's Date 03/04/2021 Patient Name: Brandon Muro Date of : 1945 Case Name: S/P Right TKR Functional Diagnosis: 1. Status post total right knee replacement Clinical Information: Subjective Referring Diagnosis: S/P Right TKR Follow-up with physician: 03/14/2021 History of Present Illness Surgery Date: 02/28/2021 Days Post-Op: 4 Subjective History: Patient is beginning outpatient PT s/p right TKR. She has been in a lot of painthe past couple days. She has been completing a few exercises on her own at home and tries to get up and walk every hour. She has been icing and elevating frequently as well. She denies numbness/tingling. She denies difficulty with functional mobility and has been using a fww. Pain Scale: Pain location: knee Average Pain: 8/10 Pain at highest: 10/10 Aggravating factors: standing and walking Easing factors: rest, ice, elevation 24 Hour Symptom Behavior Morning Pain: sudden End of day pain: worse Personal Goals: Decrease pain, improve ROM and strength and improve mobility Functional Mobility Status Functional Limitations: limited mobility and standing Current Mobility Status: Home: 2-WW and independent Community: 2-WW and independent Bed Transfer: modified independent Toilet Transfer: modified independent Car Transfer: modified independent Current Activity Level: low active Home medical equipment owned: Yes Adaptive Equipment: elevated toilet seat and grab bars (chair lift to basement) Gait Devices: 2-WW and SPC Social Support: Voodoo, social, or cultural considerations to be made aware of before starting treatment: No Home Environment: Current Home Environment: Setup: single story house (with basement) Entry: steps with railing (3 ANKUR) Activities of Daily Living: Lower Body: increased time and effort with allActivities of daily living: uses adaptive equipment for ADLs.Instrumental Activities of Daily Living: to be assessed Sleep Assessment Preferred sleep position: supine and on side Sleep disturbance: no Sleep Disturbance Red Flags: None Comments: Barriers to Care: None Voodoo, social, or cultural considerations to be made aware of before starting treatment: No Knee Right Knee Tenderness: medial joint line, patellar tendon and lateral joint line Range of Motion: Flexion Active: 70 Extension Active: -9 (lacking) Muscle Strength: Flexion: 4 Extension: 3 Swelling NT d/t presence of bandage and compression stockings FOTO: Ankle/Foot Right Ankle/Foot Right Ankle/Foot WFL Treatments: Physical Therapy Exercise Log - 03/04/21 1517 OTHER Notes Eval: 2:38 - 3:15 Therapeutic Exercise ([id number]) Intervention Provided written HEP handouts consisting of the following: Parameters seated calf and HS stretches Intervention quad sets with prop under knee Parameters SLR Intervention knee flexion stretches PT Treatment Times Total Treatment Time 37 Goals: Physical Therapy Ortho Goals: MOBILITY: Patient will be able to ambulate for 1 hour in community and ambulate on uneven surfaces without difficulty in 6 weeks. MOBILITY: Patient will be able to ascend/descend stairs without difficulty in 4 weeks. IMPAIRMENT: Improve pain from 10/10 to <4/10 during prolonged standing, walking and stair negotiation in 6 weeks IMPAIRMENT: Improve gross MMT of the Knee to at least 4+/5 in 6 weeks IMPAIRMENT: Improve AROM of the Knee to 0-120 degrees in 6 weeks. IMPAIRMENT: Improve Swelling of the Knee to <2.5cm in 6 weeks. OTHER: Patient will be able to properly demonstrate independence with HEP in 1 week. CPT Code 90681 Low 91380 Moderate 78796 High History 0 1-2 3+ Comorbidities: HTN and OA, Personal factors: chronicity or severity of the current condition Examination of body systems (elements of body structures & functions, activity limitations, and/or participation restrictions) 1-2 elements 3+ elements 4+ elements See below clinical impression Clinical Presentation Stable Evolving Unstable As evidenced by reproduction of or changes in symptoms with certain movements and improving symptomlevel since surgical intervention Decision Making Low (FOTO >/= 69) Moderate (FOTO 34 - 68) High (FOTO </= 33) Clinical Judgement Pt is a 75 y.o. female who presents to PT services s/p right TKR. Upon assessment, pt has been found with the following impairments: decreased ROM, decreased strength, impaired dynamic balance, antalgic gait, swelling, decreased stability and pain. 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 The pt would benefit from skilled PT services focusedon the above listed impairments and limitations in order to safely progress pt to their desired level of function. Pt to be discharged from OP PT services if/when goals are met, if they fail to make progress with conservative management in PT, if their level of progress plateaus, or if they do not maintain compliance with attendance or HEP. At this time, it is my clinical judgment that services are medically necessary. Plan of Care Frequency of Visits: 2-3 times per week Duration: 6 weeks Interventions: Therapeutic Exercise, Neuromuscular Re-Education, Manual Therapy, Therapeutic/ Functional Activities, Gait Training, Hot/Cold Pack and Vasopneumatic Rehab Potential: good Suicide Screen Signs and Symptoms of Abuse/Neglect: No Actions Taken: No Suicide Risk: Does the patient feel like ending their life today?No Actions Taken: No Patient Education Provided Pt was educated on the benefits of therapy and importance of compliance with sessions and HEP for rehabilitation. Pt was also educated on treatment diagnosis, POC, and frequency/duration of treatment. Clinical Impression Pt would benefit from PT interventions s/p right TKR to address impairments in ROM, strength and stability as well as pain control. Clemencia Montes PT State License, [id number] documented in this [id number] NoteHNO ID: [id number] Author: Sera Ramos Service: ? Author Type: ? Type: Progress Notes Filed: 02/25/2021 2:59 PM Note Text: POPULATION HEALTH NAVIGATION OUTREACH Action/FYI Contact made with patient or family member? NO Pt identified by name and : NO Outreach Outcome/Action Unable to reach patient: Left message Reason for Outreach Care Gap or Scheduling/Wellness visits Patient LM for tx 02-24-21. I am returning call. Payer: Payor: MEDICARE / Plan: MEDICARE A AND B / Product Type: Medicare / Care Gap Reviewed:: Annual Wellness visit Follow-up appointment Breast Cancer screening Controlling Blood Pressure Colorectal Cancer Screening Reminder: Reminder note to check Health Maintenance for items below Health Maintenance items due: COVID-19 VACCINE(1) Never done HEPATITIS C SCREENING Never done BP CONTROLLED (<130/80) Never done DTAP,TDAP,TD(1 - Tdap) Never done COLORECTAL CANCER SCREENING Never done SHINGRIX VACCINE(1 of 2) Never done DEPRESSION SCREENING due on 08/02/2019 MAMMOGRAM due on 09/14/2019 ANNUAL PCP TEAM CHRONIC DISEASE VISIT due on 02/06/2021 Advanced Directives Completed: Have you ever planned for future healthcare decisions with a power of deputy commonwealth's attorney, living will, or advance directives? Unknown Referrals: N/A Message Sent to Practice: NO Navigation Signature: Sera Ramos February 25, 2021 2:51 [facility]08-30-2021 NotePatient Outreach (AGINTMLW) BRANDON MURO ([id number]) 1945 F Date Time Provider Department 02/24/21 SERA RAMOS During your visit today, we recorded the following information about you: Sera Ramos 02/24/2021 9:37 AM Signed POPULATION HEALTH NAVIGATION OUTREACH Action/FYI Contact made with patient or family member? NO Pt identified by name and : NO Outreach Outcome/Action Unable to reach patient: Left message MyChart message sent Reason for Outreach Care Gap or Scheduling/Wellness visits Payer: Payor: MEDICARE / Plan: MEDICARE A AND B / Product Type: Medicare / Care Gap Reviewed:: Annual Wellness visit Follow-up appointment Breast Cancer screening Controlling Blood Pressure Colorectal Cancer Screening Reminder: Reminder note to check Health Maintenance for items below Health Maintenance items due: COVID-19 VACCINE(1) Never done HEPATITIS C SCREENING Never done BP CONTROLLED (<130/80) Never done DTAP,TDAP,TD(1 - Tdap) Never done COLORECTAL CANCER SCREENING Never done SHINGRIX VACCINE(1 of 2) Never done DEPRESSION SCREENING due on 08/02/2019 MAMMOGRAM due on 09/14/2019 ANNUAL PCP TEAM CHRONIC DISEASE VISIT due on 02/06/2021 Advanced Directives Completed: Have you ever planned for future healthcare decisions with a power of deputy commonwealth's attorney, living will, or advance directives? Referrals: N/A Message Sent to Practice: NO Navigation Signature: Sera Ramos February 24, 2021 9:34 AM Sera Ramos 02/25/2021 2:59 PM Signed POPULATION HEALTH NAVIGATION OUTREACH Action/FYI Contact made with patient or family member? NO Pt identified by name and : NO Outreach Outcome/Action Unable to reach patient: Left message Reason for Outreach Care Gap or Scheduling/Wellness visits Patient LM for tx 02-24-21. I am returning call. Payer: Payor: MEDICARE / Plan: MEDICARE A AND B / Product Type: Medicare / Care Gap Reviewed:: Annual Wellness visit Follow-up appointment Breast Cancer screening Controlling Blood Pressure Colorectal Cancer Screening Reminder: Reminder note to check Health Maintenance for items below Health Maintenance items due: COVID-19 VACCINE(1) Never done HEPATITIS C SCREENING Never done BP CONTROLLED (<130/80) Never done DTAP,TDAP,TD(1 - Tdap) Never done COLORECTAL CANCER SCREENING Never done SHINGRIX VACCINE(1 of 2) Never done DEPRESSION SCREENING due on 08/02/2019 MAMMOGRAM due on 09/14/2019 ANNUAL PCP TEAM CHRONIC DISEASE VISIT due on 02/06/2021 Advanced Directives Completed: Have you ever planned for future healthcare decisions with a power of deputy commonwealth's attorney, living will, or advance directives? Unknown Referrals: N/A Message Sent to Practice: NO Navigation Signature: Sera Ramos February 25, 2021 2:51 PM Sera Ramos 04/02/2021 11:09 AM Signed POPULATION HEALTH NAVIGATION OUTREACH Action/FYI Contact made with patient or family member? NO Pt identified by name and : NO Outreach Outcome/Action Unable to reach patient: Left message MyChart message sent Reason for Outreach Care Gap or Scheduling/Wellness visits Payer: Payor: MEDICARE / Plan: MEDICARE A AND B / Product Type: Medicare / Care Gap Reviewed:: Annual Wellness visit Breast Cancer screening Controlling Blood Pressure Colorectal Cancer Screening Reminder: Reminder note to check Health Maintenance for items below Health Maintenance items due: COVID-19 VACCINE(1) Never done HEPATITIS C SCREENING Never done BP CONTROLLED (<130/80) Never done DTAP,TDAP,TD(1 - Tdap) Never done COLORECTAL CANCER SCREENING Never done SHINGRIX VACCINE(1 of 2) Never done DEPRESSION SCREENING due on 08/02/2019 MAMMOGRAM due on 09/14/2019 ANNUAL PCP TEAM CHRONIC DISEASE VISIT due on 02/06/2021 INFLUENZA(1) due on 02/26/2021 Advanced Directives Completed: Have you ever planned for future healthcare decisions with a power of deputy commonwealth's attorney, living will, or advance directives? Unknown Referrals: N/A Message Sent to Practice: NO Navigation Signature: Sera Ramos April 02, 2021 11:08 AM Sera Ramos 04/02/2021 11:34 AM Signed POPULATION HEALTH NAVIGATION OUTREACH Action/FYI Contact made with patient or family member? YES Pt identified by name and : YES Outreach Outcome/Action Spoke to patient or caregiver: Patient scheduled Patient does have Advance Directive at home. Going to bring into PCP office to scan into chart. Reason for Outreach Care Gap or Scheduling/Wellness visits Payer: Payor: MEDICARE / Plan: MEDICARE A AND B / Product Type: Medicare / Care Gap Reviewed:: Annual Wellness visit Reminder: Reminder note to check Health Maintenance for items below Health Maintenance items due: COVID-19 VACCINE(1) Never done HEPATITIS C SCREENING Never done BP (more content not included)...[facility]08-30-2021 NoteHNO ID: [id number] Author: Sera Ramos Service: ? Author Type: ? Type: Progress Notes Filed: 02/24/2021 9:37 AM Note Text: POPULATION HEALTH NAVIGATION OUTREACH Action/FYI Contact made with patient or family member? NO Pt identified by name and : NO Outreach Outcome/Action Unable to reach patient: Left message MyChart message sent Reason for Outreach Care Gap or Scheduling/Wellness visits Payer: Payor: MEDICARE / Plan: MEDICARE A AND B / Product Type: Medicare / Care Gap Reviewed:: Annual Wellness visit Follow-up appointment Breast Cancer screening Controlling Blood Pressure Colorectal Cancer Screening Reminder: Reminder note to check Health Maintenance for items below Health Maintenance items due: COVID-19 VACCINE(1) Never done HEPATITIS C SCREENING Never done BP CONTROLLED (<130/80) Never done DTAP,TDAP,TD(1 - Tdap) Never done COLORECTAL CANCER SCREENING Never done SHINGRIX VACCINE(1 of 2) Never done DEPRESSION SCREENING due on 08/02/2019 MAMMOGRAM due on 09/14/2019 ANNUAL PCP TEAM CHRONIC DISEASE VISIT due on 02/06/2021 Advanced Directives Completed: Have you ever planned for future healthcare decisions with a power of deputy commonwealth's attorney, living will, or advance directives? Referrals: N/A Message Sent to Practice: NO Navigation Signature: Sera Ramos February 24, 2021 9:34 [facility]08-10-2021 History of Present illness Narrative* Clemencia Montes, PT - 02/04/2021 9:41 AM EDT Patient called today to cancel all of her therapy sessions, stating her doctor told her to hold offon therapy until after surgery. PT POC to be D/C'd this date per patient request. documented in this [id number] History of Present illness Narrative* Wilbert Palomares, GUIDE DELEGATE - 02/03/2021 1:00 PM EDT [facility] DAILY TREATMENT NOTE Today's Date 02/03/2021 Patient Name: Brandon Muro Date of : 1945 Current Visit #: 3 Authorized Visits: 9 Case Name: Right Knee Pain History: Pre-Treatment Pain Scale: 8 Symptoms: gradually worsened Functional Diagnosis: 1. Primary osteoarthritis of right knee Clinical Information: Subjective: Pt reports knee hurting more today and overall has not improved. Did not sleep well last night. Objective Treatments: Physical Therapy Exercise Log - 02/03/21 1258 OTHER Notes visit 2: 1:00 - 1:30 Therapeutic Exercise (02210) Intervention sci fit 2' lv 1 Parameters HS and calf stretch - 15 sec x3 Intervention heel slides x10 Parameters quad sets x10 Intervention SLR - x10 Parameters hip abd, add - x15 ball RTB Intervention LAQ's HS curls RTB x10 each Additional Exercises Add more exercises? Yes Modalities Modalities -- Parameters 34 10' PT Treatment Times Therex Total Time 30 Direct Treatment Time 30 Total Treatment Time 30 Goals: Physical Therapy Ortho Goals: MOBILITY: Patient will be able to ambulate for >30 minutes in community without difficulty in 4 weeks. MOBILITY: Patient will be able to ambulate on uneven surfaces without difficulty in 4 weeks. MOBILITY: Patient will be able to ascend/descend stairs without difficulty in 4 weeks. SELF CARE: Patient will be able to complete ADL's, IADL's and work activities involving prolonged standing and walking without difficulty in 4 weeks. IMPAIRMENT: Patient will demonstrate improved postural awareness in PT sessions to facilitate mechanical alignment and function in 2 weeks. IMPAIRMENT: Improve pain from 10/10 to <5/10 during prolonged walking, standing and sitting in 4weeks. IMPAIRMENT: Improve MMT of Right Knee Flexion and Extension from 4+/5 to 5/5 in 4 weeks. IMPAIRMENT: Improve AROM of Right Knee Flexion Extension from 7-90 degrees to 0- 110 degrees in 4 weeks. OTHER: Patient will increase FOTO score to at least 39 to show MDC/MCII and expected functional outcome in 4 weeks. OTHER: Patient will be able to properly demonstrate independence with HEP in 1 week. Patient Education: Quality of movement with patient demonstrated understanding. Post-Treatment Pain Scale: 8 Assessment: Patient had an expected response to treatment. Skilled Intervention demonstrated by modifications of treatment per exercise log including assessment of patient's response and safety interventions per exercise log. Progress towards goals as expected. Plan for Next Visit: Treatment Visit with focus on strengthening as tolerated Wilbert PalomaresCULLEN STATE LICENSE, [id number] documented in this [id number] History of Present illness Narrative* Hakeemmonroe TanjaCULLEN - 01/29/2021 9:15 AM EDT [facility] DAILY TREATMENT NOTE Today's Date 01/29/2021 Patient Name: Brandon Muro Date of : 1945 Current Visit #: 2 Authorized Visits: 9 Case Name: Right Knee Pain History: Pre-Treatment Pain Scale: 4 Symptoms: stabilized Functional Diagnosis: 1. Primary osteoarthritis of right knee Clinical Information: Subjective: She did the HEP and is very painful today. Objective Added vaso with decreased sx's. Pain with all exercises. Treatments: Physical Therapy Exercise Log - 01/29/21 0959 OTHER Notes visit 1: 9:15-9:55 Therapeutic Exercise (53835) Intervention provided HEP handout consisting of the following: Parameters HS and calf stretch Intervention heel slides x10 Parameters quad sets x10 Intervention SLR Parameters sci fit 4' lv 1 Intervention LAQ's HS curls RTB x10 each Additional Exercises Add more exercises? Yes Modalities Modalities Vasopneumatic Treatment Parameters 34 10' PT Treatment Times Therex Total Time 30 Modalities Total Time 10 Direct Treatment Time 40 Total Treatment Time 40 Goals: Physical Therapy Ortho Goals: MOBILITY: Patient will be able to ambulate for >30 minutes in community without difficulty in 4 weeks. MOBILITY: Patient will be able to ambulate on uneven surfaces without difficulty in 4 weeks. MOBILITY: Patient will be able to ascend/descend stairs without difficulty in 4 weeks. SELF CARE: Patient will be able to complete ADL's, IADL's and work activities involving prolonged standing and walking without difficulty in 4 weeks. IMPAIRMENT: Patient will demonstrate improved postural awareness in PT sessions to facilitate mechanical alignment and function in 2 weeks. IMPAIRMENT: Improve pain from 10/10 to <5/10 during prolonged walking, standing and sitting in 4weeks. IMPAIRMENT: Improve MMT of Right Knee Flexion and Extension from 4+/5 to 5/5 in 4 weeks. IMPAIRMENT: Improve AROM of Right Knee Flexion Extension from 7-90 degrees to 0- 110 degrees in 4 weeks. OTHER: Patient will increase FOTO score to at least 39 to show MDC/MCII and expected functional outcome in 4 weeks. OTHER: Patient will be able to properly demonstrate independence with HEP in 1 week. Patient Education: Quality of movement with patient demonstrated understanding. Post-Treatment Pain Scale: 4 Assessment: Patient had an expected response to treatment. Skilled Intervention demonstrated by modifications of treatment per exercise log including increased load and safety interventions per exercise log. Progress towards goals as expected. Plan for Next Visit: Treatment Visit with focus on pain control and ROM Tanja Mcdonald PTA STATE LICENSE, [id number] documented in this [id number] History of Present illness Narrative* Daisy Wallace - 01/28/2021 8:30 AM EDT [facility] Evaluation Today's Date 01/28/2021 Patient Name: Brandon Muro Date of : 1945 Case Name: Right Knee Pain Functional Diagnosis: 1. Primary osteoarthritis of right knee Clinical Information: Subjective Referring Diagnosis: Primary OA of right knee History of Present Illness Subjective History: Pt presents with c/o chronic knee pain worsening over the past 6 years. She reports that she used to have good and bad days but now she seems to only have bad days. She describes the pain as constant and worse on the lateral side of the knee. She has had x-rays in the past and will be receiving an updated one on February 04. She states that occasionally she has pain down the leg into the toes and sometimes into the quadriceps area but she denies any numbness/tingling in the LE. She is anticipating surgery on the knee. She has received numerous injections for the knee and the last two did not provide any relief. She has also tried braces which help with stability and topical creams which no longer provide relief. Previous Imaging: X-ray Pain Scale: Pain location: knee Pain at highest: 10/10 Aggravating factors: twisting, prolonged walking, sit to stand transfers, sitting Easing factors: tylenol 650 Personal Goals: Manage pain and improve activity tolerance. Functional Mobility Status Functional Limitations: limited mobility and standing Current Mobility Status: Home: no device and independent Community: independent and no device Social Support: Voodoo, social, or cultural considerations to be made aware of before starting treatment: No Home Environment: Current Home Environment: Setup: single story house Entry: steps with railing (3 ANKUR) Additional comments: entire house is handicap accessible Activities of Daily Living: independent with all Instrumental Activities of Daily Living: to be assessed Prior Avocational Participation (community involvement, hobbies, volunteer): gardening, sewing Sleep Assessment Sleep disturbance: Sleep Disturbance Red Flags: None Comments: Barriers to Care: None Voodoo, social, or cultural considerations to be made aware of before starting treatment: No Knee Right Knee Tenderness: lateral joint line, medial joint line, LCL, infrapatellar, suprapatellar andmedial hamstring Range of Motion: Flexion Active: 90 Extension Active: -7 (lacking) Muscle Strength: Flexion: 4+ Extension: 4+ Special Tests Stress Test (Varus): Negative Stress Test (Valgus): Negative Patient presents with patellar hypomobility in all planes FOTO: 29 Ankle/Foot Right Ankle/Foot Right Ankle/Foot WFL Treatments: Physical Therapy Exercise Log - 01/28/21 0849 OTHER Notes Eval: 8:38 - 9:08 Therapeutic Exercise (25235) Intervention provided HEP handout consisting of the following: Parameters HS and calf stretch Intervention heel slides Parameters quad sets Intervention SLR PT Treatment Times Total Treatment Time 30 CPT Code 91542 Low 07388 Moderate 29231 High History 0 1-2 3+ Comorbidities: HTN and OA, Personal factors: chronicity or severity of the current condition Examination of body systems (elements of body structures & functions, activity limitations, and/or participation restrictions) 1-2 elements 3+ elements 4+ elements See below clinical impression Clinical Presentation Stable Evolving Unstable As evidenced by reproduction of or changes in symptoms with certain movements and pt report of overall worsening of symtpoms over time Decision Making Low (FOTO >/= 69) Moderate (FOTO 34 - 68) High (FOTO </= 33) FOTO score= 29 Pt is a 75 y.o. female who presents to PT services with c/o right knee pain. Upon assessment, pt has been found with the following impairments: impaired posture, decreased ROM, decreased strength, antalgic gait, swelling, decreased stability and pain. 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 The pt would benefit from skilled PT services focused on the above listed impairments and limitations in order to safely progress ptto their desired level of function. Pt to be discharged from OP PT services if/when goals are met, if they fail to make progress with conservative management in PT, if their level of progress plateaus, or if they do not maintain compliance with attendance or HEP. At this time, it is my clinical judgment that services are medically necessary. Plan of Care Frequency of Visits: 2 times per week Duration: 4 weeks Interventions: Therapeutic Exercise, Neuromuscular Re-Education, Manual Therapy, Therapeutic/ Functional Activities, Gait Training, Hot/Cold Pack and Vasopneumatic Rehab Potential: fair Suicide Screen Signs and Symptoms of Abuse/Neglect: No Actions Taken: No Suicide Risk: Does the patient feel like ending their life today?No Actions Taken: No Patient Education Provided Pt was educated on the benefits of therapy and importance of compliance with sessions and HEP for rehabilitation. Pt was also educated on treatment diagnosis, POC, and frequency/duration of treatment. Clinical Impression Pt would benefit from PT interventions for possible right knee arthritis to address impairments in ROM, strength and stability, as well as posture and pain control. Goals: Physical Therapy Ortho Goals: MOBILITY: Patient will be able to ambulate for >30 minutes in community without difficulty in 4 weeks. MOBILITY: Patient will be able to ambulate on uneven surfaces without difficulty in 4 weeks. MOBILITY: Patient will be able to ascend/descend stairs without difficulty in 4 weeks. SELF CARE: Patient will be able to complete ADL's, IADL's and work activities involving prolonged standing and walking without difficulty in 4 weeks. IMPAIRMENT: Patient will demonstrate improved postural awareness in PT sessions to facilitate mechanical alignment and function in 2 weeks. IMPAIRMENT: Improve pain from 10/10 to <5/10 during prolonged walking, standing and sitting in 4weeks. IMPAIRMENT: Improve MMT of Right Knee Flexion and Extension from 4+/5 to 5/5 in 4 weeks. IMPAIRMENT: Improve AROM of Right Knee Flexion Extension from 7-90 degrees to 0- 110 degrees in 4 weeks. OTHER: Patient will increase FOTO score to at least 39 to show MDC/MCII and expected functional outcome in 4 weeks. OTHER: Patient will be able to properly demonstrate independence with HEP in 1 week. Treatment directed and supervised by supervising therapist: Clemencia Montes PT, DPT. Daisy Wallace No licensure found in state: [place] Clemencia Montes, PT, DPT State License, [id number] documented in this [id number] NoteHNO ID: [id number] Author: Sera Ramos Service: ? Author Type: ? Type: Progress Notes Filed: 01/20/2021 12:19 PM Note Text: POPULATION HEALTH NAVIGATION OUTREACH Action/FYI Contact made with patient or family member? NO Pt identified by name and : NO Outreach Outcome/Action Unable to reach patient: Left message Reason for Outreach Care Gap or Scheduling/Wellness visits Payer: Payor: MEDICARE / Plan: MEDICARE A AND B / Product Type: Medicare / Care Gap Reviewed:: Annual Wellness visit Reminder: Reminder note to check Health Maintenance for items below Health Maintenance items due: COVID-19 VACCINE(1) Never done HEPATITIS C SCREENING Never done DTAP,TDAP,TD(1 - Tdap) Never done COLORECTAL CANCER SCREENING Never done SHINGRIX VACCINE(1 of 2) Never done DEPRESSION SCREENING due on 08/02/2019 MAMMOGRAM due on 09/14/2019 Referrals: N/A Message Sent to Practice: NO Navigation Signature: Sera Ramos January 20, 2021 12:18 [facility]07-19-2021 NotePatient Outreach (CATHLEEN) BRANDON MURO ([id number]) 1945 F Date Time Provider Department 01/13/21 SERA RAMOS During your visit today, we recorded the following information about you: Sera Ramos 01/13/2021 9:42 AM Signed POPULATION HEALTH NAVIGATION OUTREACH Action/FYI Contact made with patient or family member? NO Pt identified by name and : NO Outreach Outcome/Action Unable to reach patient: Left message MyChart message sent Reason for Outreach Care Gap or Scheduling/Wellness visits Patient needs to schedule 2020 PCP APPT, last OV Medicare Wellness 02-07-20. Payer: Payor: MEDICARE / Plan: MEDICARE A AND B / Product Type: Medicare / Care Gap Reviewed:: Annual Wellness visit Colorectal Cancer Screening Reminder: Reminder note to check Health Maintenance for items below Health Maintenance items due: COVID-19 VACCINE(1) Never done HEPATITIS C SCREENING Never done DTAP,TDAP,TD(1 - Tdap) Never done COLORECTAL CANCER SCREENING Never done SHINGRIX VACCINE(1 of 2) Never done DEPRESSION SCREENING due on 08/02/2019 MAMMOGRAM due on 09/14/2019 Advanced Directives Completed: Have you ever planned for future healthcare decisions with a power of deputy commonwealth's attorney, living will, or advance directives? Referrals: Message Sent to Practice: NO Navigation Signature: Sera Ramos January 13, 2021 9:36 AM Sera Ramos 01/20/2021 12:19 PM Signed POPULATION HEALTH NAVIGATION OUTREACH Action/FYI Contact made with patient or family member? NO Pt identified by name and : NO Outreach Outcome/Action Unable to reach patient: Left message Reason for Outreach Care Gap or Scheduling/Wellness visits Payer: Payor: MEDICARE / Plan: MEDICARE A AND B / Product Type: Medicare / Care Gap Reviewed:: Annual Wellness visit Reminder: Reminder note to check Health Maintenance for items below Health Maintenance items due: COVID-19 VACCINE(1) Never done HEPATITIS C SCREENING Never done DTAP,TDAP,TD(1 - Tdap) Never done COLORECTAL CANCER SCREENING Never done SHINGRIX VACCINE(1 of 2) Never done DEPRESSION SCREENING due on 08/02/2019 MAMMOGRAM due on 09/14/2019 Referrals: N/A Message Sent to Practice: NO Navigation Signature: Sera Ramos January 20, 2021 12:18 PM Allergies As of Date: 01/13/2021 Noted Allergy Reaction MOLD 03/03/2012 16 - Unknown PITAVASTATIN 11/13/2012 14 - Other: See Comments Comments: Drug induced lupus. SULFA (SULFONAMIDE ANTIBIOTICS) 03/03/2012 16 - Unknown Comments: Took for bladder infection and infection became worse. TAPE (ADHESIVE TAPE (ROSINS)) 08/20/2014 2 - Rash VICODIN (HYDROCODONE-ACETAMINOPHE*08/20/2014 8 - GI Upset Date Reviewed: 03/21/2019 Reviewed by: Pilar Jade ([facility]) MARY LOU Ferrer - Fully Assessed Reason for Visit: Population Health Navigation Outreach [3910] Cmt: Needs to Schedule PCP APPT, Colon Cancer Screening Care Gap Prescriptions as of 01/20/2021 - hydroCHLOROthiazide (HYDRODIURIL, ESIDRIX) 12.5 mg tablet Take 1 tablet by mouth once daily - amLODIPine (NORVASC) 5 mg tablet Take 1 tablet by mouth once daily - losartan (COZAAR) 100 mg tablet Take 1 tablet by mouth once daily - cetirizine (ZYRTEC) 10 mg tablet TAKE 1 TABLET EVERY DAY - hydrOXYchloroQUINE (PLAQUENIL) 200 mg tablet TAKE 1 AND 1 2 (ONE AND ONE HALF) TABLETS BY MOUTH ONCE DAILY - venlafaxine (EFFEXOR) 75 mg tablet Take 1 tablet by mouth twice daily. - mometasone (ELOCON) 0.1 % cream Apply 1 application to affected area once daily. - benzonatate (TESSALON PERLES) 100 mg capsule Take 1 capsule by mouth three times daily as needed for Cough. - Omeprazole 40 mg capsule TAKE 1 CAPSULE EVERY DAY - albuterol HFA (PROAIR HFA) 90 mcg/actuation inhaler Inhale 2 Puffs as instructed every 6 hours as needed. - busPIRone (BUSPAR) 10 mg tablet Take 1 tablet by mouth three times daily. - fluticasone (FLONASE) 50 mcg/actuation nasal spray Take one spray bid Problem List As Of Date 01/13/2021 Noted Resolved Chronic cough [R05] 03/03/2012 Allergic rhinitis [J30.9] 03/03/2012 Hyperlipidemia [E78.5] 08/20/2014 Hypertension [I10] 08/20/2014 Abnormal ECG [R94.31] 11/15/2014 Mild aortic stenosis [I35.0] 11/12/2015 Obesity (BMI 35.0-39.9 without comorbidity) [E6*11/12/2015 Anxiety and depression [F41.9, F32.9] 08/11/2017 Encounter Status:Closed by SERA RAMOS on 01/13/21[facility]07-19-2021 NoteHNO ID: [id number] Author: Sera Ramos Service: ? Author Type: ? Type: Progress Notes Filed: 01/13/2021 9:42 AM Note Text: POPULATION HEALTH NAVIGATION OUTREACH Action/FYI Contact made with patient or family member? NO Pt identified by name and : NO Outreach Outcome/Action Unable to reach patient: Left message MyChart message sent Reason for Outreach Care Gap or Scheduling/Wellness visits Patient needs to schedule 2020 PCP APPT, last OV Medicare Wellness 02-07-20. Payer: Payor: MEDICARE / Plan: MEDICARE A AND B / Product Type: Medicare / Care Gap Reviewed:: Annual Wellness visit Colorectal Cancer Screening Reminder: Reminder note to check Health Maintenance for items below Health Maintenance items due: COVID-19 VACCINE(1) Never done HEPATITIS C SCREENING Never done DTAP,TDAP,TD(1 - Tdap) Never done COLORECTAL CANCER SCREENING Never done SHINGRIX VACCINE(1 of 2) Never done DEPRESSION SCREENING due on 08/02/2019 MAMMOGRAM due on 09/14/2019 Advanced Directives Completed: Have you ever planned for future healthcare decisions with a power of deputy commonwealth's attorney, living will, or advance directives? Referrals: Message Sent to Practice: NO Navigation Signature: Sera Ramos January 13, 2021 9:[address] [facility] note* Diagnosis Primary osteoarthritis of right knee- Primary documented in this encounter [facility] note* Diagnosis Primary osteoarthritis of right knee documented in this encounter [facility] note* Diagnosis Primary osteoarthritis of right knee- Primary documented in this encounter [facility] note* Diagnosis Primary osteoarthritis of right knee- Primary documented in this encounter [facility] note* Diagnosis History of arthroplasty of right knee- Primary documented in this encounter [facility] note* Diagnosis Status post total right knee replacement History of arthroplasty of right knee documented in this encounter [facility] note* Diagnosis Status post total right knee replacement- Primary documented in this encounter [facility] note* Diagnosis Status post total right knee replacement- Primary documented in this encounter [facility] note* Diagnosis Status post total right knee replacement- Primary documented in this encounter [facility] note* Diagnosis Status post total right knee replacement- Primary documented in this encounter [facility] note* Diagnosis Status post total right knee replacement- Primary documented in this encounter [facility] note* Diagnosis Status post total right knee replacement- Primary documented in this encounter [facility] note* Diagnosis Status post total right knee replacement- Primary documented in this encounter [facility] note* Diagnosis Status post total right knee replacement- Primary documented in this encounter [facility] note* Diagnosis Status post total right knee replacement- Primary documented in this encounter [facility] note* Diagnosis Presence of right artificial knee joint- Primary documented in this encounter [facility] note* Diagnosis Status post total right knee replacement- Primary Presence of right artificial knee joint documented in this encounter [facility] note* Diagnosis Status post total right knee replacement- Primary documented in this encounter [facility] note* Diagnosis Status post total right knee replacement- Primary documented in this encounter [facility] note* Diagnosis Status post total right knee replacement- Primary documented in this encounter [facility] note* Diagnosis Status post total right knee replacement- Primary documented in this encounter [facility] note* Diagnosis Gastroesophageal reflux disease without esophagitis Esophageal reflux documented in this encounter [facility] note* Diagnosis Allergic rhinitis, unspecified seasonality, unspecified trigger documented in this encounter [facility] note* Diagnosis Gastroesophageal reflux disease without esophagitis Esophageal reflux documented in this encounter [facility] note* Diagnosis Microscopic hematuria- Primary documented in this encounter [facility] note* Diagnosis Primary hypertension- Primary Unspecified essential hypertension Anxiety and depression Dysthymic disorder Mixed hyperlipidemia Mild aortic stenosis Aortic valve disorders Gastroesophageal reflux disease without esophagitis Esophageal reflux Stage 3 chronic kidney disease, unspecified whether stage 3a or 3b CKD (HCC) Vitamin D deficiency Unspecified vitamin D deficiency Encounter for screening mammogram for malignant neoplasm of breast Other screening mammogram Screening for thyroid disorder Encounter for hepatitis C screening test for low risk patient Left carotid bruit Other symptoms involving cardiovascular system Allergic rhinitis, unspecified seasonality, unspecified trigger documented in this encounter [facility] note* Diagnosis Aortic valve stenosis, etiology of cardiac valve disease unspecified- Primary documented in this encounter [facility] note* Diagnosis Primary hypertension Unspecified essential hypertension Gastroesophageal reflux disease without esophagitis Esophageal reflux documented in this encounter [facility] note* Diagnosis Elevated TSH- Primary Nonspecific abnormal results of thyroid function study Elevated serum creatinine Other nonspecific findings on examination of blood Abnormal thyroid function test Nonspecific abnormal results of thyroid function study documented in this encounter [facility] note* Diagnosis Gastroesophageal reflux disease without esophagitis Esophageal reflux documented in this encounter [facility] note* Diagnosis Gastroesophageal reflux disease without esophagitis Esophageal reflux documented in this encounter [facility] note* Diagnosis Gastroesophageal reflux disease without esophagitis Esophageal reflux documented in this encounter [facility] note* Diagnosis Primary hypertension Unspecified essential hypertension Allergic rhinitis, unspecified seasonality, unspecified trigger documented in this encounter [facility] note* Diagnosis Medicare annual wellness visit, subsequent- Primary Routine general medical examination at a health care facility Primary hypertension Unspecified essential hypertension Anxiety and depression Dysthymic disorder Acquired clavicle deformity Acquired musculoskeletal deformity of other specified site Allergic rhinitis, unspecified seasonality, unspecified trigger Stage 3 chronic kidney disease, unspecified whether stage 3a or 3b CKD (HCC) Mixed hyperlipidemia Vitamin D deficiency Unspecified vitamin D deficiency Post-menopausal Asymptomatic postmenopausal status (age-related) (natural) Screening for thyroid disorder Encounter for screening mammogram for malignant neoplasm of breast Other screening mammogram documented in this encounter [facility] note* Diagnosis Acquired clavicle deformity Acquired musculoskeletal deformity of other specified site documented in this encounter [facility] note* Diagnosis Right wrist pain- Primary Pain in joint, forearm Chronic pain of right ankle documented in this encounter [facility] note* Diagnosis Herpes zoster without complication- Primary Herpes zoster without mention of complication documented in this encounter [facility] for referral (narrative)* Diagnostic Procedure Only (Routine) - Pending Review Specialty Diagnoses / Procedures Referred By Bella schaffer Referred To Contact US IMAGING Diagnoses Left carotid bruit Procedures US CAROTID BILATERAL Pilar Ferrer APRN.PROGRAM ADMINISTRATOR [address] [place] [id number] [facility] Referral ID Status Reason Start Date Expiration Date Visits Requested Visits Authorized [id number] Pending Review Auto-Generat ed Referral 09/30/2022 10/30/2023 1 1 * Outpatient Procedure (Routine) - Pending Review Specialty Diagnoses / Procedures Referred By Contac t Referred To Contact [facility] Diagnoses Mild aortic stenosis Procedures ECHO ECHO TTHRC R-T 2D W/WOM-MODE COMPL SPEC&COLR D Pilar Ferrer APRN.PROGRAM ADMINISTRATOR [address] [place] [address] [facility] [address] [place] [address] Referral ID Status Reason Start Date Expiration Date Visits Requested Visits Authorized [id number] Pending Review Auto-Generat ed Referral 09/30/2022 09/30/2023 1 1 * Diagnostic Procedure Only (Routine) - Pending Review Specialty Diagnoses / Procedures Referred By Dustinac t Referred To Contact [facility] Diagnoses Encounter for screening mammogram for malignant neoplasm of breast Procedures ROSA ISELA SCREENING SCREENING MAMMOGRAPHY BI 2-VIEW BREAST INC CAD Pilar Ferrer APRN.PROGRAM ADMINISTRATOR [address] [place] [address] [facility] [address] [place] [address] Referral ID Status Reason Start Date Expiration Date Visits Requested Visits Authorized [id number] Pending Review Auto-Generat ed Referral 09/30/2022 10/30/2023 1 1 [facility] for referral (narrative)* Diagnostic Procedure Only (Routine) - Closed Specialty Diagnoses / Procedures [facility] Referred To Contact [facility] Diagnoses Acquired clavicle deformity Procedures XR CLAVICLE 2V RIGHT RADEX CLAVICLE COMPLETE Pilar Ferrer BI[employer]EL PLANT MANAGER.PROGRAM ADMINISTRATOR [address] [place] [address] [place] [address] Referral ID Status Reason Start Date Expiration Date V isits Requested Visits Authorized [id number] Closed Auto-Generate d Referral 11/30/2023 12/29/2024 1 1 * Diagnostic Procedure Only (Routine) - Closed Specialty Diagnoses / Procedures Referred By Bella t Referred To Contact XR IMAGING Diagnoses Acquired clavicle deformity Procedures XR CLAVICLE 2V LEFT RADEX CLAVICLE COMPLETE Pilar Ferrer APRN.PROGRAM ADMINISTRATOR [address] [place] [address] [place] [address] Referral ID Status Reason Start Date Expiration Date V isits Requested Visits Authorized [id number] Closed Auto-Generate d Referral 11/30/2023 12/29/2024 1 1 * Diagnostic Procedure Only (Routine) - Pending Review Specialty Diagnoses / Procedures Referred By Bella schaffer Referred To Contact [facility] Diagnoses Encounter for screening mammogram for malignant neoplasm of breast Procedures ROSA ISELA SCREENING SCREENING MAMMOGRAPHY BI 2-VIEW BREAST INC CAD Pilar Ferrer APRN.PROGRAM ADMINISTRATOR [address] [place] [address] [facility] [address] [place] [address] Referral ID Status Reason Start Date Expiration Date Visits Requested Visits Authorized [id number] Pending Review Auto-Generat ed Referral 11/30/2023 12/29/2024 1 1 * Diagnostic Procedure Only (Routine) - Pending Review Specialty Diagnoses / Procedures Referred By Bella t Referred To Contact XR IMAGING Diagnoses Post-menopausal Procedures DXA-AXIAL SKELETON Pilar Ferrer [employer] PLANT MANAGER.PROGRAM ADMINISTRATOR [address] [place] [address] [place] [address] Referral ID Status Reason Start Date Expiration Date Visits Requested Visits Authorized [id number] Pending Review Auto-Generat ed Referral 11/30/2023 12/29/2024 1 1 [facility] for visit Narrative* Diagnostic Procedure Only (Routine) - Closed Specialty Diagnoses / Procedures Referred By Contac t Referred To Contact XR IMAGING Diagnoses Acquired clavicle deformity Procedures XR CLAVICLE 2V RIGHT RADEX CLAVICLE COMPLETE Pilar Ferrer, BI[employer]EL PLANT MANAGER.PROGRAM ADMINISTRATOR [address] [place] [address] [place] [address] Referral ID Status Reason Start Date Expiration Date V isits Requested Visits Authorized [id number] Closed Auto-Generate d Referral 11/30/2023 12/29/2024 1 1 [facility] Summary Purpose Family History No Family History Records FoundNo Family History Records FoundNo Family History Records FoundNo Family History Records FoundNo Family History Records FoundNo Family History Records FoundNo Family History Records FoundNo Family History Records FoundNo Family History Records Found Advance Directives No Advanced Directives Records FoundDocuments on File Type Date Recorded Patient Edi Coordinator Expl anation Advance Directives and Living Will Documents on File Type Date Recorded Patient Edi Coordinator Expl anation Advance Directives and Living Will Reason for Referral Status Reason Specialty Diagnoses / Procedures Referred By Contact Referred To Contact Authorized Rehabilitation Diagnoses Primary osteoarthritis of right knee Lisa Swartz PA-C [address] [place] [address] [facility] [address] [place] [address] Specialty Diagnoses / Procedures Referred By Contac t Referred To Contact Rehabilitation Diagnoses History of arthroplasty of right knee Darien Sethi PA-C [address] [place] [address] [facility] [address] [place] [address] Referral ID Status Reason Start Date Expiration Date V isits Requested Visits Authorized [id number] Authorized 02/11/2021 02/11/2022 1 1 Specialty Diagnoses / Procedures Referred By Contac t Referred To Contact Rehabilitation Diagnoses Presence of right artificial knee joint Darien Sethi PA-C [address] [facility] [address] [facility] [address] [place] [address] [facility] [address] [place] [address] Referral ID Status Reason Start Date Expiration Date V isits Requested Visits Authorized [id number] Authorized 05/01/2021 05/01/2022 1 199 Specialty Diagnoses / Procedures Referred By Contac t Referred To Contact Cardiology / [facility] Department Diagnoses Aortic valve stenosis, etiology of cardiac valve disease unspecified Procedures CONSULT TO CARDIOLOGY OFFICE/OUTPATIENT [facility] 60-74 MINUTES Pilar Ferrer, BIODIESEL PLANT MANAGER.PROGRAM ADMINISTRATOR [address] [place] [address] Khalif Zheng MD [address] [place] [address] Referral ID Status Reason Start Date Expiration Date Visits Requested Visits Authorized [id number] Authorized PCP Requested Referral 12/17/2022 12/17/2023 1 1 Specialty Diagnoses / Procedures Referred By Contac t Referred To Contact ORTHOPAEDIC SURGERY Diagnoses Right wrist pain Chronic pain of right ankle Procedures CONSULT TO ORTHOPAEDICS OFFICE/OUTPATIENT [facility] 60 MINUTES Pilar Ferrer, BIODIESEL PLANT MANAGER.PROGRAM ADMINISTRATOR [address] [place] [address] [facility], [address] [address] Referral ID Status Reason Start Date Expiration Date Visits Requested Visits Authorized [id number] Authorized PCP Requested Referral 02/22/2024 02/21/2025 1 1 Additional Source Comments INFORMATION SOURCE (unrecogn ized section and content) DATE CREATED AUTHOR 02/27/2020 [facility] DATE CREATED AUTHOR AUTHOR'S ORGANIZ ATION 11/12/2020 [employer] DATE CREATED AUTHOR AUTHOR'S ORGANIZ ATION 06/07/2021 [facility] DATE CREATED AUTHOR AUTHOR'S ORGANIZ ATION 08/12/2021 [facility] DATE CREATED AUTHOR AUTHOR'S ORGANIZ ATION 12/04/[address] [facility] DATE CREATED AUTHOR AUTHOR'S ORGANIZ ATION 03/05/2023 [facility] DATE CREATED AUTHOR AUTHOR'S ORGANIZ ATION 12/20/2023 [facility] DATE CREATED AUTHOR AUTHOR'S ORGANIZ ATION 01/12/2024 [facility] DATE CREATED AUTHOR AUTHOR'S ORGANIZ ATION 04/24/2024 [facility] Reason for Visit (unrecogniz ed section and content) Reason Comments Physical Therapy Specialty Diagnoses / Procedures Referred By Contac t Referred To Contact Rehabilitation Diagnoses History of arthroplasty of right knee Darien Sethi PA-C [address] [facility] [address] [facility] [address] [place] [address] [facility] [address] [place] [address] Referral ID Status Reason Start Date Expiration Date V isits Requested Visits Authorized [id number] Authorized 02/11/2021 02/11/2022 19 199 Status Reason Specialty Diagnoses / Procedures Referred By Contact Referred To Contact Authorized Rehabilitation Diagnoses Primary osteoarthritis of right knee Lisa Swartz PA-C [address] [place] [address] [facility] [address] [place] [address] Referral ID Status Reason Start Date Expiration Date V isits Requested Visits Authorized [id number] Authorized 02/11/2021 02/11/2022 25 199 Specialty Diagnoses / Procedures Referred By Contac t Referred To Contact Rehabilitation Diagnoses Presence of right artificial knee joint Darien Sethi PA-C [address] [place] [address] [facility] [address] [place] [address] Referral ID Status Reason Start Date Expiration Date V isits Requested Visits Authorized [id number] Authorized 05/01/2021 05/01/2022 1 199 Reason Comments Refill Request Reason Comments Patient Update Reason Comments Orders UA Reason Comments Hypertension Reason Comments Results Echo Reason Onset Date Comments Refill Request 12/22/2022 Reason Comments Results Labs from 10/21/22 Reason Comments Lab Orders Reason Onset Date Comments Population Health Navigation Outreach 08/09/2023 ACO Attributed 2023 Medicare Wellness Appt Scheduled Reason Comments Results Reason Onset Date Comments Refill Request 11/18/2023 Reason Comments Medicare Wellness Exam Reason Onset Date Comments Refill Request 12/01/2023 Reason Comments Pain Rt ankle and Rt wris t pain. Per pt the Rt ankle started in September and the Rt wrist pain started 3-4 weeks ago. Reason Comments Rash Pt thinks she has sh ingles. On right inner arm. Pain started Wednesday. Burning Care Teams (unrecognized sec tion and content) [employer] Relationship Specialty Start Date End Date Aimee Mendes CNP [address] [place] [address] PCP - General Nurse Practitioner 08/20/14 [employer] Relationship Specialty Start Date End Date Aimee Mendes MARY LOU [address] [place] [address] PCP - General Nurse Practitioner 08/20/14 [employer] Relationship Specialty Start Date End Date Aimee Mendes MARY LOU [address] [place] [address] PCP - General Nurse Practitioner 08/20/14 [employer] Relationship Specialty Start Date End Date Aimee Mendes MARY LOU [address] [place] [address] PCP - General Nurse Practitioner 08/20/14 [employer] Relationship Specialty Start Date End Date Aimee Mendes CNP [address] [place] [address] PCP - General Nurse Practitioner 08/20/14 [employer] Relationship Specialty Start Date End Date Aimee Mendes CNP [address] [facility] [place] [place] [address] PCP - General Nurse Practitioner 08/20/14 [employer] Relationship Specialty Start Date End Date Aimee Mendes CNP [address] [place] [address] PCP - General Nurse Practitioner 08/20/14 [employer] Relationship Specialty Start Date End Date Aimee Mendes CNP [address] [facility] [place] [address] PCP - General Nurse Practitioner 08/20/14 [employer] Relationship Specialty Start Date End Date Aimee Mendes CNP [address] [facility] [place] [address] PCP - General Nurse Practitioner 08/20/14 [employer] Relationship Specialty Start Date End Date Aimee Mendes CNP [address] [facility] [place] [address] PCP - General Nurse Practitioner 08/20/14 [employer] Relationship Specialty Start Date End Date Aimee Mendes CNP [address] [facility] [place] [address] PCP - General Nurse Practitioner 08/20/14 [employer] Relationship Specialty Start Date End Date Aimee Mendes CNP [address] [facility] [place] [address] PCP - General Nurse Practitioner 08/20/14 [employer] Relationship Specialty Start Date End Date Aimee Mendes CNP [address] [place] [address] PCP - General Nurse Practitioner 08/20/14 [employer] Relationship Specialty Start Date End Date Aimee Mendes CNP [address] [facility] [place] [address] PCP - General Nurse Practitioner 08/20/14 [employer] Serv[employer] Relationship Specialty Start Date End Date Aimee Mendes, PROGRAM ADMINISTRATOR [address] [facility] [place] [address] PCP - General Nurse Practitioner 08/20/14 [employer] Relationship Specialty Start Date End Date Aimee Mendes, PROGRAM ADMINISTRATOR [address] [place] [address] PCP - General Nurse Practitioner 08/20/14 [employer] Relationship Specialty Start Date End Date Aimee Mendes, PROGRAM ADMINISTRATOR [address] [place] [address] PCP - General Nurse Practitioner 08/20/14 [employer] Relationship Specialty Start Date End Date Pilar Ferrer, BIODIESEL PLANT MANAGER.PROGRAM ADMINISTRATOR [address] [place] [place] [address] PCP - General Internal Medicine 08/06/17 [employer] Servicer Relationship Specialty Start Date End Date Pilar Ferrer, BIODIESEL PLANT MANAGER.PROGRAM ADMINISTRATOR [address] [place] [address] PCP - General Internal Medicine 08/06/17 [employer] Serv[employer] Relationship Specialty Start Date End Date Pilar Ferrer, BIODIESEL PLANT MANAGER.PROGRAM ADMINISTRATOR [address] [place] [address] PCP - General Internal Medicine 08/06/17 [employer] Servicer Relationship Specialty Start Date End Date Pilar Ferrer, BIODIESEL PLANT MANAGER.PROGRAM ADMINISTRATOR [address] [place] [address] PCP - General Internal Medicine 08/06/17 [employer] Serv[employer] Relationship Specialty Start Date End Date Pilar Ferrer, BIODIESEL PLANT MANAGER.PROGRAM ADMINISTRATOR [address] [place] [address] PCP - General Internal Medicine 08/06/17 [employer] Servicer Relationship Specialty Start Date End Date Pilar Ferrer, BIODIESEL PLANT MANAGER.PROGRAM ADMINISTRATOR [address] [place] [address] PCP - General Internal Medicine 08/06/17 [employer] Servicer Relationship Specialty Start Date End Date Pilar Ferrer, BIODIESEL PLANT MANAGER.PROGRAM ADMINISTRATOR [address] [place] [address] PCP - General Internal Medicine 08/06/17 [employer] Servicer Relationship Specialty Start Date End Date Pilar Ferrer, BIODIESEL PLANT MANAGER.PROGRAM ADMINISTRATOR [address] [place] [address] PCP - General Internal Medicine 08/06/17 [employer] Servicer Relationship Specialty Start Date End Date Pilar Ferrer, BIODIESEL PLANT MANAGER.PROGRAM ADMINISTRATOR [address] [place] [address] PCP - General Internal Medicine 08/06/17 Jet Aircraft Servicer Relationship Specialty Start Date End Date Pilar Ferrer, BIODIESEL PLANT MANAGER.PROGRAM ADMINISTRATOR [address] [place] [address] PCP - General Internal Medicine 08/06/17 Jet Aircraft Servicer Relationship Specialty Start Date End Date Pilar Ferrer, BIODIESEL PLANT MANAGER.PROGRAM ADMINISTRATOR [address] [place] [address] PCP - General Internal Medicine 08/06/17 Jet [employer] Servicer Relationship Specialty Start Date End Date Pilar Ferrer BIOD[employer]EL PLANT MANAGER.PROGRAM ADMINISTRATOR [address] [place] [address] PCP - General Internal Medicine 08/06/17 Jet Aircraft Servicer Relationship Specialty Start Date End Date Pilar Ferrer BI[employer]EL PLANT MANAGER.PROGRAM ADMINISTRATOR [address] [place] [address] PCP - General Internal Medicine 08/06/17 Jet [employer] Servicer Relationship Specialty Start Date End Date Pilar Ferrer, BIODIESEL PLANT MANAGER.PROGRAM ADMINISTRATOR [address] [place] [address] PCP - General Internal Medicine 08/06/17 Jet Aircraft Servicer Relationship Specialty Start Date End Date Pilar Ferrer, BIODIESEL PLANT MANAGER.PROGRAM ADMINISTRATOR [address] [place] [address] PCP - General Internal Medicine 08/06/17 Jet Aircraft Servicer Relationship Specialty Start Date End Date Pilar Ferrer, BIODIESEL PLANT MANAGER.PROGRAM ADMINISTRATOR [address] [place] [address] PCP - General Internal Medicine 08/06/17 Jet Aircraft Servicer Relationship Specialty Start Date End Date Pilar Ferrer, BIODIESEL PLANT MANAGER.PROGRAM ADMINISTRATOR [address] [place] [address] PCP - General Internal Medicine 08/06/17 Jet Aircraft Servicer Relationship Specialty Start Date End Date Pilar Ferrer, BIODIESEL PLANT MANAGER.PROGRAM ADMINISTRATOR [address] [place] [address] PCP - General Internal Medicine 08/06/17 Jet Aircraft Servicer Relationship Specialty Start Date End Date Pilar Ferrer, BIODIESEL PLANT MANAGER.PROGRAM ADMINISTRATOR [address] [place] [address] PCP - General Internal Medicine 08/06/17 Jet Aircraft Servicer Relationship Specialty Start Date End Date Pilar Ferrer, BIODIESEL PLANT MANAGER.PROGRAM ADMINISTRATOR [address] [place] [address] PCP - General Internal Medicine 08/06/17 Jenise Rios [address] [address] Rheumatology 11/30/23 Taniya Tyson I, DO [address] [place] [address] Nephrology 11/30/23 Houston Gonzalez Sr. [address] [place] [address] Ent - Otolaryngology 11/30/23 Jet [employer] Servicer Relationship Specialty Start Date End Date Pilar Ferrer, BIODIESEL PLANT MANAGER.PROGRAM ADMINISTRATOR [address] [place] [address] PCP - General Internal Medicine 08/06/17 Jenise Rios [address] [place] [address] Rheumatology 11/30/23 Taniya Tyson I, DO [address] [place] [address] Nephrology 11/30/23 Houston Gonzalez Sr. [address] [place] [phone] Ent - Otolaryngology 11/30/23 [employer] Servicer Relationship Specialty Start Date End Date Pilar Ferrer BIOD[employer]EL PLANT MANAGER.PROGRAM ADMINISTRATOR [address] [place] [place], [place] [id number] PCP - General Internal Medicine 08/06/17 Jenise Rios [address] [place] [address] Rheumatology 11/30/23 Taniya Tyson I, DO [address] [place] [address] Nephrology 11/30/23 Houston Gonzalez Sr. [address] [place] [address] Ent - Otolaryngology 11/30/23 [employer] Servicer Relationship Specialty Start Date End Date Pilar Ferrer, BIODIESEL PLANT MANAGER.PROGRAM ADMINISTRATOR [address] [place] [place], [place] [id number] PCP - General Internal Medicine 08/06/17 Jenise Rios [address] [place] [address] Rheumatology 11/30/23 Taniya Tyson I, DO [address] [address] Nephrology 11/30/23 Houston Gonzalez Sr. [address] [facility] [address] [place] [address] Ent - Otolaryngology 11/30/23 Jet [employer] Servicer Relationship Specialty Start Date End Date Pilar Ferrer, BIODIESEL PLANT MANAGER.PROGRAM ADMINISTRATOR [address] [place], [place] [id number] PCP - General Internal Medicine 08/06/17 Jenise Rios [address] [place] [address] Rheumatology 11/30/23 Taniya Tyson I, DO [address] [place] [address] Nephrology 11/30/23 Houston Gonzalez Sr. [address] [place] [address] Ent - Otolaryngology 11/30/23 Jet Aircraft Servicer Relationship Specialty Start Date End Date Pilar Ferrer, BIODIESEL PLANT MANAGER.PROGRAM ADMINISTRATOR [address] [place], [place] [id number] PCP - General Internal Medicine 08/06/17 Jenise Rios [address] [place] [address] Rheumatology 11/30/23 Taniya Tyson I, DO [address] [place] [address] Nephrology 11/30/23 Houston Gonzalez Sr. [address] [place] [phone] Ent - Otolaryngology 11/30/23 Jet [employer] Servicer Relationship Specialty Start Date End Date Pilar Ferrer, BIODIESEL PLANT MANAGER.PROGRAM ADMINISTRATOR [address] [place] [address] PCP - General Internal Medicine 08/06/17 Jenise Rios [address] [place] [address] Rheumatology 11/30/23 Taniya Tyson I, DO [address] [address] Nephrology 11/30/23 Houston Gonzalez Sr., MD [address] [facility] [address] [place] [address] Ent - Otolaryngology 11/30/23 Jet [employer] Servicer Relationship Specialty Start Date End Date Pilar Ferrer, BIODIESEL PLANT MANAGER.PROGRAM ADMINISTRATOR [address] [place] [address] PCP - General Internal Medicine 08/06/17 Jenise Rios [address] [place] [address] Rheumatology 11/30/23 Taniya Tyson I, DO [address] [address] Nephrology 11/30/23 Houston Gonzalez Sr., MD [address] [facility] [address] [phone] Ent - Otolaryngology 11/30/23 Source Comments (unrecognize d section and content) In the event this informatio n is protected by the Federal Confidentiality of Alcohol and Drug Abuse Patient Records regulations: The Federal rules restrict any use of the information to criminally investigate or prosecute any alcohol or drug abuse patient.[facility] the event this information is protected by the Federal Confidentiality of Alcohol and Drug Abuse Patient Records regulations: The Federal rules restrict any use of the information to criminally investigate or prosecute any alcohol or drug abuse patient.[facility] HospitalIn the event this information is protected by the Federal Confidentiality of Alcohol and Drug Abuse Patient Records regulations: The Federal rules restrict any use of the information to criminally investigate or prosecute any alcohol or drug abuse patient.[facility] HospitalIn the event this information is protected by the Federal Confidentiality of Alcohol and Drug Abuse Patient Records regulations: The Federal rules restrict any use of the information to criminally investigate or prosecute any alcohol or drug abuse patient.[facility] HospitalIn the event this information is protected by the Federal Confidentiality of Alcohol and Drug Abuse Patient Records regulations: The Federal rules restrict any use of the information to criminally investigate or prosecute any alcohol or drug abuse patient.[facility] HospitalIn the event this information is protected by the Federal Confidentiality of Alcohol and Drug Abuse Patient Records regulations: The Federal rules restrict any use of the information to criminally investigate or prosecute any alcohol or drug abuse patient.[facility] HospitalIn the event this information is protected by the Federal Confidentiality of Alcohol and Drug Abuse Patient Records regulations: The Federal rules restrict any use of the information to criminally investigate or prosecute any alcohol or drug abuse patient.[facility] HospitalIn the event this information is protected by the Federal Confidentiality of Alcohol and Drug Abuse Patient Records regulations: The Federal rules restrict any use of the information to criminally investigate or prosecute any alcohol or drug abuse patient.[facility] HospitalIn the event this information is protected by the Federal Confidentiality of Alcohol and Drug Abuse Patient Records regulations: The Federal rules restrict any use of the information to criminally investigate or prosecute any alcohol or drug abuse patient.[facility] HospitalIn the event this information is protected by the Federal Confidentiality of Alcohol and Drug Abuse Patient Records regulations: The Federal rules restrict any use of the information to criminally investigate or prosecute any alcohol or drug abuse patient.[facility] HospitalIn the event this information is protected by the Federal Confidentiality of Alcohol and Drug Abuse Patient Records regulations: The Federal rules restrict any use of the information to criminally investigate or prosecute any alcohol or drug abuse patient.[facility] HospitalIn the event this information is protected by the Federal Confidentiality of Alcohol and Drug Abuse Patient Records regulations: The Federal rules restrict any use of the information to criminally investigate or prosecute any alcohol or drug abuse patient.[facility] HospitalIn the event this information is protected by the Federal Confidentiality of Alcohol and Drug Abuse Patient Records regulations: The Federal rules restrict any use of the information to criminally investigate or prosecute any alcohol or drug abuse patient.[facility] HospitalIn the event this information is protected by the Federal Confidentiality of Alcohol and Drug Abuse Patient Records regulations: The Federal rules restrict any use of the information to criminally investigate or prosecute any alcohol or drug abuse patient.[facility] HospitalIn the event this information is protected by the Federal Confidentiality of Alcohol and Drug Abuse Patient Records regulations: The Federal rules restrict any use of the information to criminally investigate or prosecute any alcohol or drug abuse patient.[facility] HospitalIn the event this information is protected by the Federal Confidentiality of Alcohol and Drug Abuse Patient Records regulations: The Federal rules restrict any use of the information to criminally investigate or prosecute any alcohol or drug abuse patient.[facility] HospitalIn the event this information is protected by the Federal Confidentiality of Alcohol and Drug Abuse Patient Records regulations: The Federal rules restrict any use of the information to criminally investigate or prosecute any alcohol or drug abuse patient.[facility] HospitalIn the event this information is protected by the Federal Confidentiality of Alcohol and Drug Abuse Patient Records regulations: The Federal rules restrict any use of the information to criminally investigate or prosecute any alcohol or drug abuse patient.[facility] HospitalIn the event this information is protected by the Federal Confidentiality of Alcohol and Drug Abuse Patient Records regulations: The Federal rules restrict any use of the information to criminally investigate or prosecute any alcohol or drug abuse patient.[facility] HospitalIn the event this information is protected by the Federal Confidentiality of Alcohol and Drug Abuse Patient Records regulations: The Federal rules restrict any use of the information to criminally investigate or prosecute any alcohol or drug abuse patient.[facility] HospitalIn the event this information is protected by the Federal Confidentiality of Alcohol and Drug Abuse Patient Records regulations: The Federal rules restrict any use of the information to criminally investigate or prosecute any alcohol or drug abuse patient.[facility] HospitalIn the event this information is protected by the Federal Confidentiality of Alcohol and Drug Abuse Patient Records regulations: The Federal rules restrict any use of the information to criminally investigate or prosecute any alcohol or drug abuse patient.[facility] HospitalIn the event this information is protected by the Federal Confidentiality of Alcohol and Drug Abuse Patient Records regulations: The Federal rules restrict any use of the information to criminally investigate or prosecute any alcohol or drug abuse patient.[facility] HospitalIn the event this information is protected by the Federal Confidentiality of Alcohol and Drug Abuse Patient Records regulations: The Federal rules restrict any use of the information to criminally investigate or prosecute any alcohol or drug abuse patient.[facility] HospitalIn the event this information is protected by the Federal Confidentiality of Alcohol and Drug Abuse Patient Records regulations: The Federal rules restrict any use of the information to criminally investigate or prosecute any alcohol or drug abuse patient.[facility] HospitalIn the event this information is protected by the Federal Confidentiality of Alcohol and Drug Abuse Patient Records regulations: The Federal rules restrict any use of the information to criminally investigate or prosecute any alcohol or drug abuse patient.[facility] HospitalIn the event this information is protected by the Federal Confidentiality of Alcohol and Drug Abuse Patient Records regulations: The Federal rules restrict any use of the information to criminally investigate or prosecute any alcohol or drug abuse patient.[facility] HospitalIn the event this information is protected by the Federal Confidentiality of Alcohol and Drug Abuse Patient Records regulations: The Federal rules restrict any use of the information to criminally investigate or prosecute any alcohol or drug abuse patient.[facility] HospitalIn the event this information is protected by the Federal Confidentiality of Alcohol and Drug Abuse Patient Records regulations: The Federal rules restrict any use of the information to criminally investigate or prosecute any alcohol or drug abuse patient.[facility] HospitalIn the event this information is protected by the Federal Confidentiality of Alcohol and Drug Abuse Patient Records regulations: The Federal rules restrict any use of the information to criminally investigate or prosecute any alcohol or drug abuse patient.[facility] HospitalIn the event this information is protected by the Federal Confidentiality of Alcohol and Drug Abuse Patient Records regulations: The Federal rules restrict any use of the information to criminally investigate or prosecute any alcohol or drug abuse patient.[facility] HospitalIn the event this information is protected by the Federal Confidentiality of Alcohol and Drug Abuse Patient Records regulations: The Federal rules restrict any use of the information to criminally investigate or prosecute any alcohol or drug abuse patient.[facility] HospitalIn the event this information is protected by the Federal Confidentiality of Alcohol and Drug Abuse Patient Records regulations: The Federal rules restrict any use of the information to criminally investigate or prosecute any alcohol or drug abuse patient.[facility] HospitalIn the event this information is protected by the Federal Confidentiality of Alcohol and Drug Abuse Patient Records regulations: The Federal rules restrict any use of the information to criminally investigate or prosecute any alcohol or drug abuse patient.[facility] HospitalIn the event this information is protected by the Federal Confidentiality of Alcohol and Drug Abuse Patient Records regulations: The Federal rules restrict any use of the information to criminally investigate or prosecute any alcohol or drug abuse patient.[facility] HospitalIn the event this information is protected by the Federal Confidentiality of Alcohol and Drug Abuse Patient Records regulations: The Federal rules restrict any use of the information to criminally investigate or prosecute any alcohol or drug abuse patient.[facility] HospitalIn the event this information is protected by the Federal Confidentiality of Alcohol and Drug Abuse Patient Records regulations: The Federal rules restrict any use of the information to criminally investigate or prosecute any alcohol or drug abuse patient.[facility] HospitalIn the event this information is protected by the Federal Confidentiality of Alcohol and Drug Abuse Patient Records regulations: The Federal rules restrict any use of the information to criminally investigate or prosecute any alcohol or drug abuse patient.[facility] HospitalIn the event this information is protected by the Federal Confidentiality of Alcohol and Drug Abuse Patient Records regulations: The Federal rules restrict any use of the information to criminally investigate or prosecute any alcohol or drug abuse patient.[facility] FOR RECORDS PERTAINING TO PATIENTS WHO ARE OR HAVE BEEN ENROLLED IN A CHEMICAL DEPENDENCY/SUBSTANCEABUSE PROGRAM, SOME INFORMATION MAY BE OMITTED. This clinical summary was aggregated from multiple sources. Caution should be exercised in using it in the provision of clinical care. This summary normalizes information from multiple sources, and as a consequence, information in this document may materially change the coding, format and clinical context of patient data. In addition, data may be omitted in some cases. CLINICAL DECISIONS SHOULD BE BASED ON THE PRIMARY CLINICAL RECORDS. [facility] [employer], [facility]. provides no warranty or guarantee of the accuracy or completeness of information in this document.
== END | disposition home or self-care (01) ==
LOC: CVS 12:40
PROVIDERS: PCP Nurse Practitioner Adult Health; Referring Provider Internal Medicine Cardiovascular Disease; Visit Provider Internal Medicine Cardiovascular Disease
DX: M32.9 Systemic lupus erythematosus, unspecified (principal); R06.02 Shortness of breath
CPT/HCPCS: 93306; Q9957; A4216; C8929

== ENCOUNTER → 2024-12-27 | Outpatient (CLI) | payer MEDICARE, OTHER, SELFPAY ==
--- NOTE | 2024-12-27 08:42 | CDU_ITS ---
Reason For Study Reason For Study: Carotid bruit Rt. Velocities/BP Lt. Velocities/BP Prox CCA 69.6/11.3 cm/sec. Prox CCA 62.6/15.4 cm/sec. Mid CCA 54.2/15.7 cm/sec. Mid CCA 54.1/14.5 cm/sec. Dist CCA 64.1/15.7 cm/sec. Dist CCA 57.0/12.6 cm/sec. Prox ICA 52.2/11.6 cm/sec. Prox ICA 65.8/11.8 cm/sec. Mid ICA 83.9/24.9 cm/sec. Mid ICA 65.8/17.9 cm/sec. Dist ICA 63.9/17.1 cm/sec. Dist ICA 88.8/28.5 cm/sec. Rt. ICA/CCA = 1.5. Lt. ICA/CCA = 1.6. Prox ECA 67.4/5.8 cm/sec. Prox ECA 67.4/8.8 cm/sec. Rt. Vert. 34.3/7.8 cm/sec. Lt. Vert. 36.5/9.1 cm/sec. Right Extracranial There is intimal thickening but no significant atherosclerotic plaque noted in the right common carotid artery. There is intimal thickening but no significant atherosclerotic plaque noted in the right internal carotid artery. There is intimal thickening but no significant atherosclerotic plaque noted in the right external carotid artery. Antegrade flow is noted in the right vertebral artery. Left Extracranial There is intimal thickening but no significant atherosclerotic plaque noted in the left common carotid artery. There is heterogeneous, irregular atherosclerotic plaque noted in the left internal carotid artery. There is heterogeneous, irregular atherosclerotic plaque noted in the left external carotid artery. Antegrade flow is noted in the left vertebral artery. Procedure Carotid Duplex 92993. This is a Carotid Duplex examination using B-mode, color flow and specral Doppler. Exam performed in department. VL/Carotid Duplex Ultrasound Interpretation Summary Normal right extracranial internal carotid. 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 Patent and antegrade vertebrals bilaterally. Ordering Physician: Kayla Steinberg Referring Physician: Kayla Steinberg MD Performed By: Nilsa Will RVT
--- NOTE | 2024-12-27 08:42 | CDU_ITS ---
Reason For Study Reason For Study: Carotid bruit Rt. Velocities/BP Lt. Velocities/BP Prox CCA 69.6/11.3 cm/sec. Prox CCA 62.6/15.4 cm/sec. Mid CCA 54.2/15.7 cm/sec. Mid CCA 54.1/14.5 cm/sec. Dist CCA 64.1/15.7 cm/sec. Dist CCA 57.0/12.6 cm/sec. Prox ICA 52.2/11.6 cm/sec. Prox ICA 65.8/11.8 cm/sec. Mid ICA 83.9/24.9 cm/sec. Mid ICA 65.8/17.9 cm/sec. Dist ICA 63.9/17.1 cm/sec. Dist ICA 88.8/28.5 cm/sec. Rt. ICA/CCA = 1.5. Lt. ICA/CCA = 1.6. Prox ECA 67.4/5.8 cm/sec. Prox ECA 67.4/8.8 cm/sec. Rt. Vert. 34.3/7.8 cm/sec. Lt. Vert. 36.5/9.1 cm/sec. Right Extracranial There is intimal thickening but no significant atherosclerotic plaque noted in the right common carotid artery. There is intimal thickening but no significant atherosclerotic plaque noted in the right internal carotid artery. There is intimal thickening but no significant atherosclerotic plaque noted in the right external carotid artery. Antegrade flow is noted in the right vertebral artery. Left Extracranial There is intimal thickening but no significant atherosclerotic plaque noted in the left common carotid artery. There is heterogeneous, irregular atherosclerotic plaque noted in the left internal carotid artery. There is heterogeneous, irregular atherosclerotic plaque noted in the left external carotid artery. Antegrade flow is noted in the left vertebral artery. Procedure Carotid Duplex 45083. This is a Carotid Duplex examination using B-mode, color flow and specral Doppler. Exam performed in department. VL/Carotid Duplex Ultrasound Interpretation Summary Normal right extracranial internal carotid. 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 Patent and antegrade vertebrals bilaterally. Ordering Physician: Kayla Steinebrg Referring Physician: Kayla Steinberg MD Performed By: Nilsa Will RVT
== END | disposition home or self-care (01) ==
LOC: CVS 08:41
PROVIDERS: PCP Nurse Practitioner Adult Health; Referring Provider Internal Medicine Cardiovascular Disease; Visit Provider Internal Medicine Cardiovascular Disease
DX: R09.89 Other specified symptoms and signs involving the circulatory and respiratory systems (principal); I77.9 Disorder of arteries and arterioles, unspecified
CPT/HCPCS: 93880

== ENCOUNTER → 2025-01-22 | Outpatient (CLI) | payer MEDICARE, OTHER, SELFPAY ==
--- OUTSIDE RECORDS SUMMARY | 2025-01-22 06:30 | XMS RPT_ITS | CCD ---
Author Organization [facility] Care Team Providers Care Turf Farm Worker Name Role Phone Nabil, Pilar Kalie Unavailable Unavailable Klonaris BILINGUAL TEACHER, Aimee Primary Care Provider SYSTEM, PROVIDER NOT IN Admitting UnavailCLEMENCIA Hudson [...] ALAS Admitting Unavailable PALOMARES, WILBERT Attending Unavailable JANDAYANARA, DARIEN Referring Unavailable KLONARIS, AIMEE Primary Care Unavailable JANDAYANARA, DARIEN Admitting Unavailable WARNES, TANJA Attending Unavailable JANAS, DARIEN Referring Unavailable KLONARIS, AIMEE Primary Care Unavailable JANAS, DARIEN Admitting Unavailable WARNES, TANJA Attending Unavailable JANDAYANARA, DARIEN Referring Unavailable KLONARIS, AIMEE Primary Care Unavailable JANDAYANARA, DARIEN Admitting Unavailable GEORGI CUOGHLIN Attending Unavailable JANAS, DARIEN Referring Unavailable KLONARIS, AIMEE Primary Care Unavailable JANAS, DARIEN Admitting Unavailable PALOMARES, WILBERT Attending Unavailable JANAS, DARIEN Referring Unavailable KLONARIS, AIMEE Primary Care Unavailable JANDAYANARA, DARIEN Admitting Unavailable WARNES, TANJA Attending Unavailable JANAS, DARIEN Referring Unavailable KLONARIS, AIMEE Primary Care Unavailable JANAS, DARIEN Admitting Unavailable WARNES, TANJA Attending Unavailable JANAS, DARIEN Referring Unavailable KLONARIS, AIMEE Primary Care Unavailable JANDAYANARA, DARIEN Admitting Unavailable PALOMARES, WILBERT Attending Unavailable JANDAYANARA, DARIEN Referring Unavailable KLONARIS, AIMEE Primary Care Unavailable JANDAYANARA, DARIEN Admitting Unavailable WARNES, TANJA Attending Unavailable JANDAYANARA, DARIEN Referring Unavailable KLONARIS, AIMEE Primary Care Unavailable Pilar Ferrer Unavailable Unavailable Unavailable Nabil RESOURCE CONSERVATION MANAGER.Pilar BARRETO Primary Care Provider Nabil RESOURCE CONSERVATION MANAGER.Pilar BARRETO Primary Care Provider Nabil RESOURCE CONSERVATION MANAGER.Pilar BARRETO Primary Care Provider Dr. Sesar Quinones Admitting Unavailable Joni, Dr. Sesar Magallon Attending Unavailable Nabil, MsLu Shepard Primary Care Charli Ferrer, Ms. Pilar Shepard Referring Charli Ferrer, MsLu Shepard Primary Care Charli Ferrer, Ms. Pilar Shepard Attending Charli Ferrer, MsLu Shepard Primary Care Charli Ferrer, MsLu Shepard Attending Charli Ferrer AIRCRAFT INSTRUMENT REPAIRER, AIRCRAFT INSTRUMENT REPAIRER-C Pilar Primary Care Provider Dr. Montrell Hooker Attending Provider Nabil RESOURCE CONSERVATION MANAGER.BILINGUAL TEACHER, Pilar M Primary Care Provider Jenise Rios L Unavailable Jah Billings DO, Christine Unavailable Houston Gonzalez Sr. Unavailable Carlos Guillermo MD, Houston Morley Unavailable Nabil RESOURCE CONSERVATION MANAGER-BILINGUAL TEACHER, Formerly [facility] Drea Primary Care Prov ider NABIL, PILAR DREA Primary Care Unavailabl e ERIKA EASON Attending Unavailable ELIANA NICHOLE Referring Unavailable NABIL, PILAR DREA Primary Care Unavailabl e NABIL, PILAR DREA Primary Care Unavailabl e NABIL, PILAR DREA Primary Care Unavailabl e NABIL, PILAR DREA Primary Care Unavailabl e NABIL, PILAR DREA Primary Care Unavailabl e Idris GARCIA, Kayla Unavailable Gama Keith Unavailable Unavailable Nabil AIRCRAFT INSTRUMENT REPAIRER-C, Pilar Primary Care Provider Nabil AIRCRAFT INSTRUMENT REPAIRER-C, Pilar Referring Provider Idris GARCIA, Dr. Garza Attending Provider Idris GARCIA, Dr. Garza Referring Provider Natalie GARCIA, Dr. Bojorquez Attending Provider PILAR FERRER Attending Unavailable NABIL, PILAR Primary Care Unavailable SELF Referring Unavailable NABIL, PILAR Referring Unavailable NABIL, PILAR Attending Unavailable NABIL, PILAR Primary Care Unavailable NABIL, PILAR Referring Unavailable NABIL, PILAR Primary Care Unavailable NABILMIGUEPILAR Attending Unavailable SELF Referring Unavailable NABIL, PILAR Primary Care Unavailable NABIL, PILAR Primary Care Unavailable SELF Referring Unavailable DONELL OLIVERA Attending Unavailable Jenise Rios Attending Unavailable Giovannilankimberly, Jenise Referring Unavailable Nabil AIRCRAFT INSTRUMENT REPAIRER, Pilar Primary Care Unavailable Nabil AIRCRAFT INSTRUMENT REPAIRER, Pilar Primary Care Unavailable Nabil AIRCRAFT INSTRUMENT REPAIRER, Pilar Referring Unavailable Kayla Steinberg Attending Unavailable Nabil AIRCRAFT INSTRUMENT REPAIRER, Pilar Primary Care Unavailable Reno Estrada Attending Unavailable Idris, Kayla Referring Unavailable Nabil AIRCRAFT INSTRUMENT REPAIRER, Pilar Primary Care Unavailable Claritza Jacome NP Attending Unavailable Nabil AIRCRAFT INSTRUMENT REPAIRER, Pilar Primary Care Unavailable Nabil AIRCRAFT INSTRUMENT REPAIRER, Pilar Referring Unavailable Idris, Kayla Attending Unavailable Nabil AIRCRAFT INSTRUMENT REPAIRER, Pilar Primary Care Unavailable Idris, Kayla Attending Unavailable Nabil AIRCRAFT INSTRUMENT REPAIRER, Pilar Primary Care Unavailable Idris, Kayla Attending Unavailable Nabil AIRCRAFT INSTRUMENT REPAIRER, Pilar Referring Unavailable Idris, Kayla Attending Unavailable Nabil AIRCRAFT INSTRUMENT REPAIRER, Pilar Primary Care Unavailable Nabil AIRCRAFT INSTRUMENT REPAIRER, Pilar Referring Unavailable Idris, Kayla Attending Unavailable Nabil AIRCRAFT INSTRUMENT REPAIRER, Pilar Primary Care Unavailable Idris, Kayla Referring Unavailable Idris, Kayla Referring Unavailable Nabil AIRCRAFT INSTRUMENT REPAIRER, Pilar Primary Care Unavailable Idris, Kayla Attending Unavailable Allergies Allergy Classification Reported Allergen(s) Allergy Type Date of Onset Reaction(s) Facility Acetaminophen / HYDROcodone (7 sources) Acetaminophen / HYDROcodone Drug Allergy 5 [facility] (20 sources) Acetaminophen / HYDROcodone; Translations: [HYDROCODONE-ACET AMINOPHEN] Drug Allergy 5 GI Upset [facility] (1 source) Tape 1X5YD TAPE; Translations: [Tape 1X5YD TAPE] Allergy to drug (finding) [facility] Work Phone: (1 source) Dust Mite Extract SOLN; Translations: [Dust Mite Extract SOLN] Allergy to drug (finding) [facility] Work Phone: (20 sources) Adhesive Tape; Translations: [ADHESIVE TAPE (ROSINS)] Allergy to substance 5 Rash [facility] (20 sources) Mold Extract; Translations: [MOLD] Drug Allergy 2 Unknown [facility] (20 sources) pitavastatin; Translations: [PITAVASTATIN] Drug Allergy 3 Other: See Comments, Other [facility] Work Phone: Comment on above: DRUG INDUCED LUPUS (20 sources) Sulfonamides (Antibiotic); Translations: [SULFA (SULFONAMIDE ANTIBIOTICS)] Propensity to adverse reactions to drug 2 Unknown, Other [facility] (20 sources) celecoxib; Translations: [CELECOXIB] Drug Allergy 7 Other: See Comments, Other [facility] (4 sources) Adhesive Tape; Translations: [adhesive tape] Allergy to substance 3 Rash [facility] (7 sources) HYDROcodone; Translations: [HYDROCODONE] Drug Allergy 7 Nausea/vomitin g [facility] (3 sources) Sulfonamides (Antibiotic) Propensity to adverse reactions 3 Other [facility] Comment on above: FREGUENT URINATION (13 sources) Adhesive agent; Translations: [ADHESIVE] Drug Allergy 7 [facility] (1 source) ALLERGIES NOT ON FILE; Translations: [ALLERGIES NOT ON FILE] Propensity to adverse reactions (disorder) [facility] (1 source) celecoxib Drug Allergy 4 [facility] (1 source) HYDROcodone Drug Allergy 4 [facility] (1 source) Mold Extract Drug Allergy 4 [facility] (1 source) pitavastatin Drug Allergy 4 [facility] (1 source) Sulfonamides (Antibiotic) Drug allergy (disorder) 4 [facility] Medications Current Medications Medication Drug Class(es) Dates Sig (Normalized) Sig (Original) acetaminophen 500 mg oral tablet (7 sources) Start: 03-23-2024 take 1 tablet by mouth every eight hours as needed for pain Acetaminophen 500 mg tablet Active 500 mg PO EVERY 8 HOURS NEEDED as needed for Pain March 23, 2024 1:45pm Start: 12-16-2016 End: 03-23-2024 take 2 tablets by mouth every eight hours as needed for pain Acetaminophen 500 MG tablet Discontinued 1000 mg PO EVERY 8 HOURS NEEDED as needed for Pain 60 December 16, 2016 12:29pm March 23, 2024 1:48pm Start: 12-16-2016 take 1000 mg by mout h every eight hours as needed Acetaminophen Active 1000 MG PO EVERY 8 HOURS NEEDED 60 December 16, 2016 11:29am acetaminophen (T ylenol) 500 mg tablet Take by mouth every 6 hours if needed for mild pain (1 - 3). Active [id number] 200 actuat albuterol 0.09 mg/actuat metered dose inhaler (20 sources) beta2-Adrenergic Agonist Start: 11-30-2023 take 2 puff(s) by inhalation every four hours as needed for wheezing albuterol HFA (PROVENTIL HFA, VENTOLIN HFA) 90 mcg/actuation inhaler Inhale 2 Puffs as instructed every 4 hours as needed for wheezing/shortness of breath. 1 Each 5 11/30/2023 Active Start: 12-30-2022 End: 08-25-2023 Albuterol Sulfate 90 mcg/act uation HFA aerosol inhaler Discontinued 2 NMA INHALATION EVERY 6 HOURS as needed December 30, 2022 12:00am August 25, 2023 10:11am Start: 12-30-2022 take 1 puff(s) by in halation every six hours Albuterol Sulfate Active 2 PUFF INHALATION EVERY 6 HOURS December 29, 2022 11:00pm Start: 08-30-2018 End: 11-30-2023 take 2 puff(s) [...] (20 sources) Dihydropyridine Calcium Channel Cathleen Start: 5 End: 4 take 1 tablet by mouth once daily amLODIPine (NORVASC) 5 mg tablet Take 1 tablet by mouth once daily 90 tablet 3 04/30/2024 Active Comment on above: Take 1 tablet by wilner [facility] once daily. Take 1 tablet by wilner [facility] once daily aspirin 81 mg delayed release oral tablet (8 sources) Platelet Aggregation Inhibitor, Nonsteroidal Anti-inflammatory Drug Start: 3 take 1 tablet by mouth once daily Aspirin 81 mg tablet,delayed release (DR/EC) Active 81 mg PO DAILY January 05, 2023 12:00am Start: 12-16-2016 End: 12-30-2022 take 1 tablet by mouth twice daily at mealtime Aspirin 325 MG tablet Discontinued 325 mg PO TWICE DAILY WITH MEALS 30 0 December 16, 2016 12:00am December 30, 2022 12:08pm benzonatate 100 mg oral capsule (15 sources) Non-narcotic Antitussive Start: 11-18-2023 End: 02-22-2024 take 1 capsule by mouth every eight [...] Start: 05-04-2022 take 1 capsule by mo [facility] every eight hours as needed benzonatate (TESSALON PERLES) 100 mg capsule Take 1 capsule by mouth three times daily as needed for cough. 45 capsule 0 05/04/2022 Active Comment on above: Take 1 capsule by mo [facility] three times daily as needed for cough. 24 hr buPROPion hydrochloride 300 mg extended release oral tablet (7 sources) Aminoketone Start: take 1 tablet by mouth once daily buPROPion XL (WELLBUTRIN XL) 300 mg 24 hr tablet Indications: Moderate episode of recurrent major depressive disorder (HCC) Take 1 tablet by mouth once daily. 90 tablet 1 01/11/2025 Active Start: 12-05-2024 take 1 tablet by wilner [facility] once daily Bupropion Hcl 150 mg tablet extended release 24 hr Active 150 mg PO daily December 11, 2024 12:00am celecoxib 200 mg oral capsule (20 sources) Nonsteroidal Anti-inflammatory Drug take 1 capsule by mouth twice daily celecoxib (CELEBREX) 200 MG capsule Take 200 mg by mouth 2 (two) times a day. 0 Active cetirizine hydrochloride 10 mg oral tablet (20 sources) Histamine-1 Receptor Antagonist Start : 05-14 End: 12-17 take 1 tablet by mouth once daily cetirizine (ZYRTEC) 10 mg tablet Indications: Allergic rhinitis, unspecified seasonality, unspecified trigger Take 1 tablet by mouth once daily 90 tablet 12/17/2024 Active Comment on above: Take 1 tablet by wilner [facility] once daily. Take 1 tablet by [facility] once daily ergocalciferol 1.25 mg oral capsule (20 sources) Provitamin D2 Compound take 1 capsule by mouth every week ergocalciferol (VITAMIN D2) 50,000 unit capsule Take 50,000 Units by mouth once a week. 0 Active estrogens, conjugated (fpc) 0.3 mg / medroxyPROGESTERone acetate 1.5 mg oral tablet (20 sources) Progestin, Estrogen take 0.3-1.5 mg by mouth once estrogen, conjugated,-medroxyPROG ESTERone (PREMPRO) 0.3-1.5 mg per tablet Take 1 tablet by mouth daily. 0 Active fenofibrate 145 mg oral tablet (2 sources) Peroxisome Proliferator Receptor alpha Agonist Start : 03-23 take 1 tablet by mouth once daily Fenofibrate Nanocrystallized (Tricor) 145 mg tablet Active 145 mg PO daily 90 March 23, 2024 12:00am On Hold: Back pain and headaches fluticasone propionate 0.05 mg/actuat metered dose nasal spray (20 sources) Corticosteroid Start : 08-13 fluticasone (FLONASE) 50 mcg/actuation nasal spray hydroCHLOROthiazide 12.5 mg oral tablet (20 sources) Thiazide Diuretic Start : 12-30 End: 12-07 take 1 tablet by mouth once daily hydroCHLOROthiazide 12.5 mg tablet Indications: Primary hypertension Take 1 tablet by mouth once daily 90 tablet 1 12/07/2024 Active Start: 05-07-2020 End: 12-22-2022 take 1 tablet by mouth [...] 1 tablet by wilner th once daily losartan potassium 100 mg oral tablet (20 sources) Angiotensin 2 Receptor Cathleen Start: 11-16-2024 take 1 tablet by mouth once daily losartan (COZAAR) 100 mg tablet Take 1 tablet by mouth once daily 90 tablet 1 11/16/2024 Active Start: 12-30-2022 End: 04-30-2024 take 1 tablet by mouth once daily losartan (COZAAR) 100 mg tablet Take 1 tablet by mouth once daily 90 tablet 1 11/16/2024 Active Start: 09-03-2020 End: 12-22-2022 take 1 tablet by mouth [...] a dose pack (PAXLOVID) (1 source) Start: End: nirmatrelvir tablet 300 mg (150 mg x [...] capsule (20 sources) Proton Pump Inhibitor Start: End: take 1 capsule by mouth once daily omeprazole (PRILOSEC) 40 mg capsule Indications: Gastroesophageal reflux disease without esophagitis Take 1 capsule by mouth once daily. 90 capsule 3 12/01/2023 Active Comment on above: Take 1 capsule by [facility] once daily. Take 1 capsule by [facility] once daily perflutren lipid microspheres 1.3 mL in NaCl (PF) 0.9% 10 mL injection (DEFINITY) (20 sources) Start: 023 End: perflutren lipid microspheres 1.3 mL in NaCl (PF) 0.9% 10 mL injection (DEFINITY) 125 ml sodium chloride 9 mg/ml prefilled syringe (20 sources) Start: End: sodium chloride 0.9 % (flush) 10 mL (BD POSIFLUSH) traMADol hydrochloride 50 mg oral tablet (16 sources) Opioid Agonist Start: End: take 1 tablet by mouth every eight hours as needed traMADol (ULTRAM) 50 mg tablet Take 50 mg by mouth three times a day as needed. 01/13/2024 Active valACYclovir 1000 mg oral tablet (1 source) Herpesvirus Nucleoside Analog DNA Polymerase Inhibitor, Herpes Simplex Virus Nucleoside Analog DNA Polymerase Inhibitor, Herpes Zoster Virus Nucleoside Analog DNA Polymerase Inhibitor Start: End: take 1 tablet by mouth twice daily valACYclovir (VALTREX) 1 gram tablet Indications: Herpes zoster without complication Take 1 tablet by mouth two times a day for 7 days. 14 tablet 04/19/2024 04/26/2024 Active venlafaxine 75 mg oral tablet (20 sources) Serotonin and Norepinephrine Reuptake Inhibitor Start: take 1 tablet by mouth once daily venlafaxine (EFFEXOR) 75 mg tablet Indications: Anxiety and depression Take 1 tablet by mouth once daily 90 tablet 1 01/16/2025 Active Start: 12-04-2024 End: 12-05-2024 take 1 tablet by mouth once daily venlafaxine (EFFEXOR) 75 mg tablet Indications: Anxiety and depression Take 1 tablet by mouth once daily 90 tablet 12/04/2024 12/05/2024 Discontinued Start: 12-30-2022 End: 01-16-2025 take 1 tablet by mouth twice daily venlafaxine (EFFEXOR) 75 mg tablet Indications: Anxiety and depression Take 1 tablet by mouth two times a day. 180 tablet 1 12/05/2024 01/16/2025 Discontinued Start: 09-30-2022 End: 11-26-2024 take 1 tablet by mouth once daily venlafaxine (EFFEXOR) 75 mg tablet Indications: Anxiety and depression Take 1 tablet by mouth once daily. 90 tablet 3 11/30/2023 11/26/2024 Discontinued Start: 05-14-2021 End: 09-30-2022 take 1 tablet [...] baclofen 10 mg oral tablet (1 source) gamma-Aminobutyr ic Acid-ergic Agonist Start: 11-11-2020 take 1 tablet by mouth twice daily as needed Baclofen 10 MG Oral Tablet TAKE 1 TABLET Twice daily PRN Quantity: 60 Refills: 0 Ordered: 11-Nov-2020 Dread Gupta MD Start : 11-Nov-2020 Active desloratadine 5 mg oral tablet (3 sources) Histamine-1 Receptor Antagonist Start: 12-02-2016 End: 12-30-2022 take 1 tablet by mouth once daily Desloratadine (Clarinex) 5 MG tablet Discontinued 5 mg PO DAILY December 02, 2016 12:00am December 30, 2022 12:06pm docusate sodium 50 mg / sennosides, fpc 8.6 mg oral tablet (3 sources) Start: 12-16-2016 End: 12-30-2022 take 1 tablet by mouth twice daily Sennosides-Docusat e Sodium (Stool Softener-Stimulant Laxat) 1 TABLET tablet Discontinued 2 {tbl} PO TWICE A DAY 30 0 December 16, 2016 12:00am December 30, 2022 12:08pm gabapentin 100 mg oral capsule (3 sources) Anti-epileptic Agent Start: 01-05-2023 End: 08-25-2023 take 1 capsule by mouth three times daily Gabapentin 100 mg capsule Discontinued 100 mg PO THREE TIMES A DAY January 05, 2023 12:00am August 25, 2023 10:10am hydroCHLOROthiazide 25 mg / losartan potassium 100 mg oral tablet (20 sources) Thiazide Diuretic, Angiotensin 2 Receptor Cathleen Start: 12-02-2016 End: 12-30-2022 Losartan-Hydrochlo rothiazide (Hyzaar) 1 TAB tablet Discontinued 1 {tbl} PO DAILY December 02, 2016 12:00am December 30, 2022 12:06pm Start: 06-29-2014 losartan-hydro chlorothiazide (HYZAAR) 100-25 mg per tablet hydroxychloroquine sulfate 200 mg oral tablet (20 sources) Antimalarial, Antirheumatic Agent Start: 12-30-2022 End: 01-05-2023 Hydroxychloroquine 200 mg tablet Discontinued 300 mg PO DAILY December 30, 2022 12:00am January 05, 2023 10:06am Start: 12-30-2022 End: 01-05-2023 take 300 mg by mouth once daily Hydroxychloroquine Discontinued 300 MG PO DAILY December 29, 2022 11:00pm January 05, 2023 9:06am Start: 01-30-2020 take 1 tablet by wilner th twice daily hydrOXYchloroQUINE (PLAQUENIL) 200 mg tablet Take 200 mg by mouth two times a day. 01/30/2020 Active Start: 01-30-2020 End: 03-23-2024 take 1 tablet by mouth once daily Hydroxychloroquine 200 mg tablet Discontinued 200 mg PO DAILY January 05, 2023 10:06am March 23, 2024 1:48pm Hydroxychloroqui ne Sulfate TABS 300 mg daily Quantity: 0 Refills: 0 Ordered: 11-Nov-2020 DO Active Comment on above: TAKE 1 & 1 2 (ONE & ONE HALF) TABLETS BY MOUTH ONCE DAILY leflunomide 10 mg oral tablet (8 sources) Antirheumatic Agent Start: 04-05-20 End: 12-06-19 take 0.5 tablet by mouth once leflunomide (ARAVA) 10 mg tablet Take 0.5 tablets by mouth every afternoon. 04/05/2024 12/05/2024 Discontinued (Other) oxyCODONE hydrochloride 5 mg oral tablet (3 sources) Opioid Agonist Start: 12-17-19 End: 12-31-19 take 5-10 mg by mouth every four hours as needed for pain Oxycodone 5 MG tablet Discontinued 5 - 10 mg PO EVERY 4 HOURS NEEDED as needed for Mod-Severe Pain (4-10) 80 0 December 16, 2016 12:25pm December 30, 2022 12:08pm predniSONE 10 mg oral tablet (20 sources) Start: 03-23-20 End: 12-12-19 take 1 tablet by mouth once daily Prednisone 10 mg tablet Discontinued 10 mg PO daily March 23, 2024 12:00am December 11, 2024 12:48pm Start: 02-22-2024 take 2 tablets by mo [facility] once daily predniSONE (DELTASONE) 20 mg tablet [...] days and 1 tab for 3 days. Vitamin B 12 TABS (1 source) Vitamin B 12 TAB S 1000 mcg daily Quantity: 0 Refills: 0 Ordered: 11-Nov-2020 DO Active Vitamin C TABS (1 source) Vitamin C TABS 1 000 mg daily Quantity: 0 Refills: 0 Ordered: 11-Nov-2020 DO Active Vitamin D-3 CAPS (1 source) Vitamin D-3 CAPS 50 mg daily Quantity: 0 Refills: 0 Ordered: 11-Nov-2020 DO Active Zinc (1 source) Zinc TABS 5 mg d aily Quantity: 0 Refills: 0 Ordered: 11-Nov-2020 DO [...] 3a or 3b CKD (HCC)] Onset: 3 Coronary atherosclerosis and other heart disease (1 source) Chronic ischemic heart disease, unspecified; Translations: [Myocardial ischemia of cardiac apex] 12-12-2024 Chronic Diabetes mellitus without complication (2 sources) Hyperglycemia; Translations: [Impaired fasting glucose] Onset: 5 12-05-2024 Episodic Disorders of lipid metabolism (20 sources) Hyperlipidemia; [...] sources) Melena; Translations: [Melena] Onset: 3 Episodic Gout and other crystal arthropathies (2 sources) Other secondary chronic gout, right ankle and foot, without tophus (tophi); Translations: [Other secondary chronic gout, right ankle and foot, without tophus (tophi)] Onset: 4 Chronic Heart valve disorders (20 sources) Nonrheumatic aortic (valve) stenosis; Translations: [Aortic valve disorders] Onset: 6 11-12-2015 Chronic Hemorrhoids (1 source) Second degree hemorrhoids; Translations: [Second degree hemorrhoids] Onset: 3 Episodic Immunizations and screening for infectious disease (1 source) Patient encounter status; Translations: [Encounter for screening for other viral diseases] Episodic Mood disorders (2 sources) Moderate major depression, single episode; Translations: [Major depressive disorder, single episode, moderate] Onset: 5 12-05-2024 Chronic Mood disorders (1 source) Mood disorders; Translations: [Anxiety and depression] Onset: 8 Nutritional deficiencies (4 sources) Vitamin D deficiency; Translations: [Vitamin D deficiency, unspecified] Onset: 5 Chronic Osteoarthritis (20 sources) Osteoarthritis of right knee joint; Translations: [Unilateral primary osteoarthritis, right knee] Onset: 1 Chronic Other acquired deformities (2 sources) Acquired deformity of clavicle; Translations: [Other specified acquired deformities of musculoskeletal system] 11-30-2023 Episodic Other circulatory disease (5 sources) Disorder of carotid artery; Translations: [Disorder of arteries and arterioles, unspecified] 01-05-2023 Chronic Comment on above: Less than 50% diseas e bilateral Other circulatory disease (1 source) Disorder of arteries and arterioles, unspecified; Translations: [Disorder of arteries and arterioles, unspecified] Onset: 5 Chronic Other circulatory disease (1 source) H/O: hypertension; Translations: [Personal history of other diseases of circulatory system] Episodic Other circulatory disease (4 sources) Carotid bruit; Translations: [Other specified symptoms and signs involving the circulatory and respiratory systems] Episodic Other circulatory disease (4 sources) Other specified symptoms and signs involving [...] radiculitis, unspecified] Episodic Other connective tissue disease (2 sources) Fibromyalgia; Translations: [Myalgia and myositis, unspecified] Onset: 5 Episodic Other connective tissue disease (1 source) Spasm; Translations: [Spasm of muscle] Episodic Other connective tissue disease (1 source) H/O: arthritis; Translations: [Personal history of arthritis] Episodic Other connective tissue disease (2 sources) Pain in left foot; Translations: [Pain in left foot] Onset: 4 06-05-2024 Episodic Other connective tissue disease (1 source) Pain in left foot; Translations: [Pain in left foot] Onset: 4 Episodic Other connective tissue disease (1 source) Fibromyalgia; Translations: [Fibromyalgia] Onset: 5 Episodic Other gastrointestinal disorders (1 source) History [...] foot] 02-22-2024 Episodic Other non-traumatic joint disorders (2 sources) Arthralgia of the ankle and/or foot; Translations: [Pain in left ankle and joints of left foot] Onset: 4 06-05-2024 Episodic Other non-traumatic joint disorders (1 source) Pain in left ankle and joints of left foot; Translations: [Pain in left ankle and joints of left foot] Onset: 4 Episodic Other nutritional; endocrine; and metabolic disorders (20 sources) Body mass index 30+ - obesity; Translations: [Obesity, unspecified] Onset: 6 11-12-2015 Chronic Other upper respiratory disease (20 sources) Allergic rhinitis; Translations: [Allergic rhinitis, unspecified] Onset: 2 08-11-2017 Chronic Residual codes; unclassified (1 source) Acquired absence of other specified parts of digestive tract; Translations: [Acquired absence of other specified parts of digestive tract] Onset: 3 Episodic Residual codes; unclassified (1 source) Postmenopausal state; Translations: [Asymptomatic menopausal state] 11-30-2023 Episodic Rheumatoid arthritis and related disease (3 sources) Inflammatory polyarthropathy; Translations: [Inflammatory polyarthropathy (Multi)] Onset: 4 Chronic Screening and history of mental health [...] Systemic lupus erythematosus and connective tissue disorders (9 sources) Lupus erythematosus; Translations: [Systemic lupus erythematosus] Onset: 3 01-05-2023 Chronic Past or Other Problems Problem Classification Problem Date Documented Date Episodic/Chronic Genitourinary symptoms and ill-defined conditions (4 sources) History of chronic renal impairment; Translations: [Personal history of other specified urinary system disorders] Onset: 12-16-2023 Episodic Other aftercare (2 sources) Other skilled nursing (current) drug therapy; Translations: [Other cytogeneticist (current) drug therapy] Onset: 01-06-2024 Episodic Other lower respiratory disease (20 sources) Chronic cough; Translations: [Chronic cough] Onset: 03-03-2012 03-03-2012 Episodic Other non-traumatic joint disorders (1 source) Pain in right wrist; Translations: [Right wrist pain] Onset: 02-22-2024 Episodic Other non-traumatic joint disorders (1 source) Pain in right ankle and joints of right foot; Translations: [Chronic pain of right ankle] Onset: 02-22-2024 Episodic Other screening for suspected conditions (not mental disorders or infectious disease) (20 sources) Electrocardiogram abnormal; Translations: [Abnormal electrocardiogram [ECG] [EKG]] Onset: 11-15-2014 11-15-2014 Episodic Urinary tract infections (2 sources) Acute cystitis with hematuria; Translations: [Acute cystitis with hematuria] Onset: 12-16-2023 Episodic Viral infection (2 sources) Herpes zoster without complication; Translations: [Zoster without complications] Onset: 04-19-2024 04-19-2024 Episodic Results Test Name Value Interpretation Reference Range Facility [facility] 01-11-2025 CNOV Office Visit (AGINTM LW) -- BRANDON MURO ([id number]) 1945 F Date Time Provider Department 01/11/25 9:40 AM PILAR FERRER AGINTMLW During your visit today, we recorded the following information about you: Pulse Respiration Blood pressure Weight 87/minute 16/minute 126/72 95.2 kg Height 1.562 m Pilar Ferrer, RESOURCE CONSERVATION MANAGER.BILINGUAL TEACHER 01/11/2025 10:47 AM Addendum Recording using [employer] software for draft documentation of the visit was discussed with the patient/authorized union contract representative; all questions welcomed and answered. Patient/authorized union contract representative agreed to proceed This note was created using [employer]. Subjective Brandon Muro is a 79 year old female here today for follow up on her depression. At last ov 12/05/24 I started her on wellbutrin 150 mg daily and continued her on effexor 75 mg twice daily Depression: - Started on Wellbutrin 150 mg daily approximately 4 weeks ago. - Reports minimal improvement in depressive symptoms. - Accidentally discarded a 30-day refill of Wellbutrin; has enough medication to last until next week. - Denies interest in counseling. - Currently taking Effexor 75 mg twice daily - No issues tolerating Wellbutrin. Chronic Cough: - Chronic cough, no recent changes. Leg Laceration: - Sustained a laceration on the leg after colliding with a wheelchair at work last night. - Nurse at work applied a bandage; no further treatment sought. ALLERGIES Allergen Reactions Adhesive Rash Celecoxib Other: See Comments Mold Unknown Pitavastatin Other: See Comments Drug induced lupus. Sulfa (Sulfonamide * Unknown Took for bladder infection and infection became worse. Tape [Adhesive Tape* Rash Vicodin [Hydrocodon* GI Upset Current Outpatient Medications Medication Sig Dispense Refill cetirizine (ZYRTEC) 10 mg tablet Take 1 tablet by mouth once daily 90 tablet 0 hydroCHLOROthiazide 12.5 mg tablet Take 1 tablet by mouth once daily 90 tablet 1 venlafaxine (EFFEXOR) 75 mg tablet Take 1 tablet by mouth two times a day. 180 tablet 1 losartan (COZAAR) 100 mg tablet Take 1 tablet by mouth once daily 90 tablet 1 amLODIPine (NORVASC) 5 mg tablet Take 1 tablet by mouth once daily 90 tablet 3 traMADol (ULTRAM) 50 mg tablet Take 50 mg by mouth three times a day as needed. omeprazole (PRILOSEC) 40 mg capsule Take 1 capsule by mouth once daily. 90 capsule 3 albuterol HFA (PROVENTIL HFA, VENTOLIN HFA) 90 mcg/actuation inhaler Inhale 2 Puffs as instructed every 4 hours as needed for wheezing/shortness of breath. 1 Each 5 hydrOXYchloroQUINE (PLAQUENIL) 200 mg tablet Take 200 mg by mouth two times a day. buPROPion XL (WELLBUTRIN XL) 300 mg 24 hr tablet Take 1 tablet by mouth once daily. 90 tablet 1 predniSONE (DELTASONE) 20 mg tablet Take 2 tablets by mouth once daily. (Patient not taking: Reported on 01/11/2025) 10 tablet 0 No current facility-administered medications for this visit. ACTIVE PROBLEM LIST Chronic Cough Allergic Rhinitis Hyperlipidemia Hypertension Abnormal Ecg Mild Aortic Stenosis Obesity (Bmi 35.0-39.9 Without Comorbidity) Anxiety and Depression Stage 3 Chronic Kidney Disease (Hcc) PAST MEDICAL HISTORY Diagnosis Date Allergic rhinitis [...] date: 06/28/1972 Quit date: 06/28/1980 Years since quittin.5 Smokeless tobacco: Never Tobacco comments: No one in household smokes Vaping Use Vaping status: Never Used Substance Use Topics Alcohol use: No Drug use: No Family History Problem Relation Age of Onset Hypertension Mother Cancer Mother Skin Diabetes Mother Hypertension Father Cancer Father Skin COPD Father Heart Father Diabetes Sister Hypertension Brother Hypertension Sister . Review of Systems Constitutional: Negative for chills, diaphoresis, fatigue and fever. Respiratory: Positive for cough. Negative for shortness of breath and wheezing. Cardiovascular: Negative for chest sam (more content not included)... Normal [facility] CBC (INCLUDES DIFF/PLT)on Basophils (Bld) [#/Vol] 0.058 10*3/uL Normal 0-200 [facility] Comment on above: Performed By: #### 6 399, 91676 #### [facility] [place] [address] Documentation Engineer: Ney Whitten MD Basophils/100 WBC (Bld) 0.9 % Normal [facility] Comment on above: Performed By: #### 6 399, 83229 #### [facility] [place] [address] Documentation Engineer: Ney Whitten MD Eosinophils (Bld) [#/Vol] 0.378 10*3/uL Normal 15-500 [facility] Comment on above: Performed By: #### 6 399, 86791 #### [facility] [place] [address] Documentation Engineer: Ney Whitten MD Eosinophils/100 WBC (Bld) 5.9 % Normal [facility] Comment on above: Performed By: #### 6 399, 61393 #### [facility] [place] [address] Documentation Engineer: Ney Whitten MD Erythrocyte distribution width (RBC) [Ratio] 15.0 % Normal 11.0-15.0 [facility] Comment on above: Performed By: #### 6 399, 54249 #### [facility] [place] [address] Documentation Engineer: Ney Whitten MD Hematocrit (Bld) [Volume fraction] 40.3 % Normal 35.0-45.0 [facility] Comment on above: Performed By: #### 6 399, 44616 #### [facility] of [address], [address] [place] [address] Documentation Engineer: Ney Whitten MD Hemoglobin (Bld) [Mass/Vol] 12.1 g/dL Normal 11.7-15.5 [facility] Comment on above: Performed By: #### 6 399, 94497 #### [facility] of [address], [address] [place] [address] Documentation Engineer: Ney Whitten MD Lymphocytes (Bld) [#/Vol] 1.613 10*3/uL Normal 850-3900 [facility] Comment on above: Performed By: #### 6 399, 43944 #### [facility] of [place] [address] Documentation Engineer: Ney Whitten MD Lymphocytes/100 WBC (Bld) 25.2 % Normal [facility] Comment on above: Performed By: #### 6 399, 29611 #### [facility] of [address], [address] [place] [address] Documentation Engineer: Ney Whitten MD MCH (RBC) [Entitic mass] 27.6 pg Normal 27.0-33.0 [facility] Comment on above: Performed By: #### 6 399, 78956 #### [facility] of [place] [address] Documentation Engineer: Ney Whitten MD MCHC (RBC) [Mass/Vol] 30.0 g/dL Low 32.0-36.0 [facility] Comment on above: Result Comment: For adults, a slight decrease in the calculated MCHC value (in the range of 30 to 32 g/dL) is most likely not clinically significant; however, it should be interpreted with caution in correlation with other red cell parameters and the patient's clinical condition. Performed By: #### 6 399, 63641 #### [facility] [place] [address] Documentation Engineer: Ney Whitten MD MCV (RBC) [Entitic vol] 91.8 fL Normal 80.0-100.0 [facility] Comment on above: Performed By: #### 6 399, 71169 #### [facility] of [place] [address] Documentation Engineer: Ney Whitten MD Monocytes (Bld) [#/Vol] 0.429 10*3/uL Normal 200-950 [facility] Comment on above: Performed By: #### 6 399, 96090 #### [facility] of [place] [address] Documentation Engineer: Ney Whitten MD Monocytes/100 WBC (Bld) 6.7 % Normal [facility] Comment on above: Performed By: #### 6 399, 54841 #### [facility] [place] [address] Documentation Engineer: Ney Whitten MD Neutrophils (Bld) [#/Vol] 3.923 10*3/uL Normal 8697-1600 [facility] Comment on above: Performed By: #### 6 399, 31400 #### [facility] [place] [address] Documentation Engineer: Ney Whitten MD Neutrophils/100 WBC (Bld) 61.3 % Normal [facility] Comment on above: Performed By: #### 6 399, 41219 #### [facility] of [place] [address] Documentation Engineer: Ney Whitten MD Platelet mean volume (Bld) [Entitic vol] 11.8 fL Normal 7.5-12.5 [facility] Comment on above: Performed By: #### 6 399, 63176 #### [facility] of [place] [address] Documentation Engineer: Ney Whitten MD Platelets (Bld) [#/Vol] 161 10*3/uL Normal 140-400 [facility] Comment on above: Performed By: #### 6 399, 99576 #### [facility] of [address], [address] [place] [address] Documentation Engineer: Ney Whitten MD RBC (Bld) [#/Vol] 4.39 10*6/uL Normal 3.80-5.10 [facility] Comment on above: Performed By: #### 6 399, 66464 #### [facility] of [address], [address] [place] [address] Documentation Engineer: Ney Whitten MD WBC (Bld) [#/Vol] 6.4 10*3/uL Normal 3.8-10.8 [facility] Comment on above: Performed By: #### 6 399, 54567 #### [facility] of [place] [address] Documentation Engineer: Ney Whitten MD [facility] 12-31-2024 Albumin [Mass/Vol] 4.1 g/dL Normal 3.6-5.1 [facility] Comment on above: Order Comment: FASTI NG:NO FASTING: NO Performed By: #### 6 399, 93754 #### [facility] [place] [address] Documentation Engineer: Ney Whitten MD Albumin/Globulin [Mass ratio] 1.8 {ratio} Normal 1.0-2.5 [facility] Comment on above: Order Comment: FASTI NG:NO FASTING: NO Performed By: #### 6 399, 54618 #### [facility] of [place] [address] Documentation Engineer: Ney Whitten MD ALP [Catalytic activity/Vol] 68 U/L Normal 37-153 [facility] Comment on above: Order Comment: FASTI NG:NO FASTING: NO Performed By: #### 6 399, 96718 #### [facility] of [place] [address] Documentation Engineer: Ney Whitten MD ALT [Catalytic activity/Vol] 13 U/L Normal 6-29 [facility] Comment on above: Order Comment: FASTI NG:NO FASTING: NO Performed By: #### 6 399, 34589 #### [facility] [place] [address] Documentation Engineer: Ney Whitten MD AST [Catalytic activity/Vol] 18 U/L Normal 10-35 [facility] Comment on above: Order Comment: FASTI NG:NO FASTING: NO Performed By: #### 6 399, 56227 #### [facility] [place] [address] Documentation Engineer: Ney Whitten MD Bilirubin [Mass/Vol] 0.3 mg/dL Normal 0.2-1.2 [facility] Comment on above: Order Comment: FASTI NG:NO FASTING: NO Performed By: #### 6 399, 42404 #### [facility] [place] [address] Documentation Engineer: Ney Whitten MD Calcium [Mass/Vol] 9.6 mg/dL Normal 8.6-10.4 [facility] Comment on above: Order Comment: FASTI NG:NO FASTING: NO Performed By: #### 6 399, 74713 #### [facility] [place] [address] Documentation Engineer: Ney Whitten MD Chloride [Moles/Vol] 104 mmol/L Normal 98-110 [facility] Comment on above: Order Comment: FASTI NG:NO FASTING: NO Performed By: #### 6 399, 56259 #### [facility] [place] [address] Documentation Engineer: Ney Whitten MD CO2 [Moles/Vol] 27 mmol/L Normal 20-32 [facility] Comment on above: Order Comment: FASTI NG:NO FASTING: NO Performed By: #### 6 399, 35290 #### [facility] [place] [address] Documentation Engineer: Ney Whitten MD Creatinine [Mass/Vol] 1.23 mg/dL High 0.60-1.00 [facility] Comment on above: Order Comment: FASTI NG:NO FASTING: NO Performed By: #### 6 399, 91537 #### [facility] [address], [address] [place] [address] Documentation Engineer: Ney Whitten MD GFR/1.73 sq M.predicted among non-blacks MDRD (S/P/Bld) [Vol rate/Area] 45 mL/min/{1.73_m2} Low > OR = 60 [facility] Comment on above: Order Comment: FASTI NG:NO FASTING: NO Performed By: #### 6 399, 42474 #### [facility] [address], [address] [place] [address] Documentation Engineer: Ney Whitten MD Globulin (S) [Mass/Vol] 2.3 g/dL Normal 1.9-3.7 [facility] Comment on above: Order Comment: FASTI NG:NO FASTING: NO Performed By: #### 6 399, 18423 #### [facility] [place] [address] Documentation Engineer: Ney Whitten MD Glucose [Mass/Vol] 120 mg/dL Normal 65-139 [facility] Comment on above: Order Comment: FASTI NG:NO FASTING: NO Result Comment: Non-fasting reference interval For someone without known diabetes, a glucose value between 100 and 125 mg/dL is consistent with prediabetes and should be confirmed with a follow-up test. Performed By: #### 6 399, 71397 #### [facility] [address], [address] [place] [address] Documentation Engineer: Ney Whitten MD Potassium [Moles/Vol] 3.9 mmol/L Normal 3.5-5.3 [facility] Comment on above: Order Comment: FASTI NG:NO FASTING: NO Performed By: #### 6 399, 33775 #### [facility] [place] [address] Documentation Engineer: Ney Whitten MD Protein [Mass/Vol] 6.4 g/dL Normal 6.1-8.1 [facility] Comment on above: Order Comment: FASTI NG:NO FASTING: NO Performed By: #### 6 399, 19711 #### [facility] [address], [address] [place] [address] Documentation Engineer: Ney Whitten MD Sodium [Moles/Vol] 141 mmol/L Normal 135-146 [facility] Comment on above: Order Comment: FASTI NG:NO FASTING: NO Performed By: #### 6 399, 29725 #### [facility] [address], [address] [place] [address] Documentation Engineer: Ney Whitten MD Urea nitrogen [Mass/Vol] 24 mg/dL Normal 7-25 [facility] Comment on above: Order Comment: FASTI NG:NO FASTING: NO Performed By: #### 6 399, 68988 #### [facility] [address], [address] [place] [address] Documentation Engineer: Ney Whitten MD Urea nitrogen/Creatinine [Mass ratio] 20 mg/mg Normal 6- [facility] Comment on above: Order Comment: FASTI NG:NO FASTING: NO Performed By: #### 6 399, 97539 #### [facility] [address], [address] [place] [address] Documentation Engineer: Ney Whitten MD Carotid Duplex Ultrasoundon 12-27-2024 Carotid Duplex Ultrasound [facility] [address] [place] [address] Carotid Duplex Ultrasound 12/27/24 0921 MR#: [id number] Acct: [id number] Name: BRANDON MURO Rep #: [id number] : 1945 79 From: Reno Estrada MD Attending Dr: Dr. Kayla Steinberg MD Status: REG CLI Ordering Dr: Kayla Steinberg MD Date: 12/27/24 Location: [facility] Sex: F C Admitted: Reason For Study Reason For Study: Carotid bruit Rt. Velocities/BP Lt. Velocities/BP Prox CCA 69.6/11.3 cm/sec. Prox CCA 62.6/15.4 cm/sec. Mid CCA 54.2/15.7 cm/sec. Mid CCA 54.1/14.5 cm/sec. Dist CCA 64.1/15.7 cm/sec. Dist CCA 57.0/12.6 cm/sec. Prox ICA 52.2/11.6 cm/sec. Prox ICA 65.8/11.8 cm/sec. Mid ICA 83.9/24.9 cm/sec. Mid ICA 65.8/17.9 cm/sec. Dist ICA 63.9/17.1 cm/sec. Dist ICA 88.8/28.5 cm/sec. Rt. ICA/CCA = 1.5. Lt. ICA/CCA = 1.6. Prox ECA 67.4/5.8 cm/sec. Prox ECA 67.4/8.8 cm/sec. Rt. Vert. 34.3/7.8 cm/sec. Lt. Vert. 36.5/9.1 cm/sec. Right Extracranial There is intimal thickening but no significant atherosclerotic plaque noted in the right common carotid artery. There is intimal thickening but no significant atherosclerotic plaque noted in the right internal carotid artery. There is intimal thickening but no significant atherosclerotic plaque noted in the right external carotid artery. Antegrade flow is noted in the right vertebral artery. Left Extracranial There is intimal thickening but no significant atherosclerotic plaque noted in the left common carotid artery. There is heterogeneous, irregular atherosclerotic plaque noted in the left internal carotid artery. There is heterogeneous, irregular atherosclerotic plaque noted in the left external carotid artery. Antegrade flow is noted in the left vertebral artery. Procedure Carotid Duplex 47037. This is a Carotid Duplex examination using B-mode, color flow and specral Doppler. Exam performed in department. VL/Carotid Duplex Ultrasound Interpretation Summary Normal right extracranial internal carotid. 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 Patent and antegrade vertebrals bilaterally. Ordering Physician: Kayla Steinberg Referring Physician: Kayla Steinberg MD Performed By: [place], Nilsa, RVT 12/27/24 1111 Date Reno Estrada MD CC: AIRCRAFT INSTRUMENT REPAIRER-C Pilar Ferrer; Dr. Kayla Steinberg MD Date Dictated: 12/27/24920 Date Transcribed: 12/27/241110 Special Assemblies Supervisor: Signed Normal [facility] Duplex ultrasound of carotid artery reportOrdered By: Reno Estrada on 12-27-2024 Study report [facility] [address] [place] [address] Carotid Duplex Ultrasound 12/27/24920 MR#: [id number] Acct: [id number] Name: BRANDON MURO Rep #:[id number] : 1945 79 From: Reno Aggarwal Attending Dr: Dr. Kayla Steinberg MD Status: REG CLI Ordering Dr: Kayla Steinberg MD Date: Location: [facility] Sex: F C Admitted: Reason For Study Reason For Study: Carotid bruit Rt. Velocities/BP Lt. Velocities/BP Prox CCA 69.6/11.3 cm/sec. Prox CCA 62.6/15.4 cm/sec. Mid CCA 54.2/15.7 cm/sec. Mid CCA 54.1/14.5 cm/sec. Dist CCA 64.1/15.7 cm/sec. Dist CCA 57.0/12.6 cm/sec. Prox ICA 52.2/11.6 cm/sec. Prox ICA 65.8/11.8 cm/sec. Mid ICA 83.9/24.9 cm/sec. Mid ICA 65.8/17.9 cm/sec. Dist ICA 63.9/17.1 cm/sec. Dist ICA 88.8/28.5 cm/sec. Rt. ICA/CCA = 1.5. Lt. ICA/CCA = 1.6. Prox ECA 67.4/5.8 cm/sec. Prox ECA 67.4/8.8 cm/sec. Rt. Vert. 34.3/7.8 cm/sec. Lt. Vert. 36.5/9.1 cm/sec. Right Extracranial There is intimal thickening but no significant atherosclerotic plaque noted in the right common carotid artery. There is intimal thickening but no significant atherosclerotic plaque noted in the right internal carotid artery. There is intimal thickening but no significant atherosclerotic plaque noted in the right external carotid artery. Antegrade flow is noted in the right vertebral artery. Left Extracranial There is intimal thickening but no significant atherosclerotic plaque noted in the left common carotid artery. There is heterogeneous, irregular atherosclerotic plaque noted in the left internal carotid artery. There is heterogeneous, irregular atherosclerotic plaque noted in the left external carotid artery. Antegrade flow is noted in the left vertebral artery. Procedure Carotid Duplex 81107. This is a Carotid Duplex examination using B-mode, color flow and specral Doppler. Exam performed in department. VL/Carotid Duplex Ultrasound Interpretation Summary Normal right extracranial internal carotid. 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 Patent and antegrade vertebrals bilaterally. Ordering Physician: Kayla Steibnerg Referring Physician: Kayla Steinberg MD Performed By: Nilsa Will, PRITESHT 12/27/24 1111 Date _ Reno Estrada MD CC: PAO Ferrer; Dr. Kayla Steinberg MD ~ Date Dictated: 12/27/24 0921 Date Transcribed: 12/27/24 1111 Special Assemblies Supervisor: Signed [facility] Work Phone: Cardiology Visit Reporton Cardiology Visit Report [facility] [address] [place] [address] OFFICE VISIT Date of Service: 12/11/24 MR#: [id number] Acct: [id number] Name: BRANDON MURO Rep #: [id number] : 1945 Provider: Dr. Kayla Steinberg MD Age/Sex: 79/F Location[facility] Status: Signed HPI HPI History of Present Illness Details: This lady with history of moderate aortic valve stenosis, abnormal stress Myoview with apical ischemia, hypertension, dyslipidemia and lupus is here for follow-up visit. Denies any chest pains or shortness of breath. No palpitations. No lightheadedness or dizziness. No syncope or presyncope. No orthopnea or PND. Intake Vital Signs 03/23/24 08:35 12/11/24 12:12 Height 5 ft 2 in 5 ft 2 in Weight: 211 lb BMI 38.5 BP 119/82 H Blood Pressure Location Lt brachial Position Sitting Respiration 18 Pulse 72 Pulse Source NIBP Intake Visit Reasons: OVERDUE 6 M FU Cardroom Hand Required: No Accompanied by: Self Is patient in pain?: No Allergies mold Allergy (Intermediate, Verified 03/23/24 13:45) Other adhesive tape Allergy (Verified 03/23/24 13:45) Rash celecoxib (From Celebrex) Adverse Reaction (Verified 03/23/24 13:45) Other hydrocodone (From Vicodin) Adverse Reaction (Verified 03/23/24 13:45) Vomiting pitavastatin (From Livalo) Adverse Reaction (Verified 03/23/24 13:45) Other Sulfa (Sulfonamide Antibiotics) Adverse Reaction (Verified 03/23/24 13:45) Other Medications ???Medication ???Instructions ???Recorded ???Confirmed ???Type amlodipine 5 mg tablet 5 mg PO DAILY 12/02/16 12/11/24 Hi story cetirizine 10 mg tablet (All Day 10 mg PO DAILY 12/30/22 12/11/24 H istory Allergy (cetirizine)) hydrochlorothiazide 12.5 mg tablet 12.5 mg PO DAILY 12/30/22 History losartan 100 mg tablet 100 mg PO DAILY 12/30/22 12/11/24 History omeprazole 40 mg capsule,delayed 40 mg PO DAILY 12/30/22 12/11/24 H istory release venlafaxine 75 mg tablet 75 mg PO BID 12/30/22 12/11/24 His tory aspirin 81 mg tablet,delayed 81 mg PO DAILY 01/05/23 12/11/24 H istory release acetaminophen 500 mg tablet 500 mg PO Q8H PRN PRN Pain 4 12/11/24 History fenofibrate nanocrystallized 145 145 mg PO QDAY #90 tabs 03/23/24 0 11/15/24 Rx mg tablet (Tricor) Held on 07/03/24. Instructions: Back pain and headaches hydroxychloroquine 200 mg tablet 200 mg PO BID 03/23/24 12/11/24 Hi story bupropion HCl 150 mg 24 hr tablet, 150 mg PO QDAY 12/11/24 12/11/24 History extended release Ejection fraction %: 60 Have you fallen in the past year?: Yes (no major injury; bruising/hematoma) [facility] Medical History Allergic rhinitis Anxiety and depression Aortic stenosis Carotid artery disease DJD (degenerative joint disease) Environmental allergies Essential hypertension GERD (gastroesophageal reflux disease) Glaucoma Hearing loss Hypertension Left carotid bruit Lupus Nonrheumatic aortic (valve) stenosis Stage 3 chronic kidney disease Vitamin D deficiency Surgical History History of 2 sections History of right hip replacement History of total bilateral knee replacement (TKR) Hx of appendectomy Hx of bilateral cataract extraction ( 2019) Hx of cardiac catheterization ( 1999) Hx of cholecystectomy Hx of lumpectomy Hx of repair of right rotator cuff Family History Mother Hypertension Cancer skin Diabetes Dementia Father Hypertension Cancer skin COPD (chronic obstructive pulmonary disease) Heart disease Dementia Sister Diabetes Hypertension Brother Hypertension Social History Smoking Status: Former smoker how long ago did patient quit smokin alcohol intake: current alcohol intake frequency: a few times a month substance use type: does not use caffeine: Yes Type: carbonated beverages ROS Const Const: Positive for fatigue; Negative for weakness, headache(s) or weight gain ENT ENT: Negative for headache(s), dizziness, Nosebleed/epistaxis or balance problems Cardio Chest Pain: No Palpitations: No Edema: None Muscle aches with walking: None Resp Respiratory: Negative for SOB with activity, SOB at rest or SOB orthopnea SOB lying down GI GI: Negative nausea, vomiting or heartburn Musc Musc: Positive for muscle aches/ myalgia (fibromyalgia per pt) and muscle weakness; Negative for joint pain or balance problems Neuro Neuro: Negative for dizziness, lightheadedness, near syncope, syncope, headache(s) or weakness Endo Endo: Positive for fatigue Cardiology Exam Const Appeara (more content not included)... Normal [facility] 25(OH)D3 [facility] 2024 25-hydroxyvitamin D3 [Mass/Vol] 29.9 ng/mL Low >=30.0 [facility] Comment on above: Order Comment: Speci men Type: BLOOD SPECIMENOrdering Facility: [facility] Address: [address] [place] [address] Result Comment: Clas sification of 25 [place] Vitamin D status: Deficiency: <= 20.0 ng/ml. Insufficiency: 21.0-29.0 ng/ml. Sufficiency: >= 30.0 ng/ml. Performed By: #### 1 989-3 ####[facility] LABORATORYCLIA [id number] [place] [address] [place] 25-hydroxyvitamin D3 [Mass/V ol]on 12-05-2024 Interpretation and review of laboratory results Abnormal [facility] CBC panel Auto (Bld)on 12-05 Erythrocyte distribution width (RBC) [Ratio] 14.4 % 11.5 - 15.0 % [facility] Hematocrit (Bld) [Volume fraction] 40 % 36.0 - 46.0 % [facility] Hemoglobin (Bld) [Mass/Vol] 12.7 g/dL 11.5 - 15.5 g/dL [facility] Interpretation and review of laboratory results Normal [facility] MCH (RBC) [Entitic mass] 27.1 pg 26.0 - 34.0 pg [facility] MCHC (RBC) [Mass/Vol] 31.8 g/dL 30.5 - 36.0 g/dL [facility] MCV (RBC) [Entitic vol] 85.5 fL 80.0 - 100.0 fL [facility] Platelet mean volume (Bld) [Entitic vol] 12 fL 9.0 - 12.7 fL [facility] Platelets (Bld) [#/Vol] 169 10*3/uL [facility] RBC (Bld) [#/Vol] 4.68 10*6/uL 3.90 - 5.2 0 m/uL [facility] WBC (Bld) [#/Vol] 6.41 10*3/uL [facility] Erythrocyte distribution width (RBC) [Ratio] 14.4 % Normal 11.5-15.0 [facility] Comment on above: Order Comment: Speci men Type: BLOOD SPECIMENOrdering Facility: [facility] Address: [address] [place] [address] Performed By: #### 5 8410-2 ####[facility] [employer] LABCLIA [id number] [place] [address] [facility] Hematocrit (Bld) [Volume fraction] 40.0 % Normal 36.0-46.0 [facility] Comment on above: Order Comment: Speci men Type: BLOOD SPECIMENOrdering Facility: [facility] Address: [address] [place] [address] Performed By: #### 5 8410-2 ####[facility] LABCL[facility] [id number] [place] [address] [place] [facility] Hemoglobin (Bld) [Mass/Vol] 12.7 g/dL Normal 11.5-15.5 [facility] Comment on above: Order Comment: Speci men Type: BLOOD SPECIMENOrdering Facility: [facility] Address: [address] [place] [address] Performed By: #### 5 8410-2 ####[facility] LABCLIA [id number] [place] [address] [place] MCH (RBC) [Entitic mass] 27.1 pg Normal 26.0-34.0 [facility] Comment on above: Order Comment: Speci men Type: BLOOD SPECIMENOrdering Facility: [facility] Address: [address] [place] [address] Performed By: #### 5 8410-2 ####[facility] LABCLIA [id number] [facility] [place] [address] [facility] MCHC (RBC) [Mass/Vol] 31.8 g/dL Normal 30.5-36.0 [facility] Comment on above: Order Comment: Speci men Type: BLOOD SPECIMENOrdering Facility: [facility] Address: [address] [place] [address] Performed By: #### 5 8410-2 ####[facility] LABCLIA [id number] [facility] [place] [address] [place] MCV (RBC) [Entitic vol] 85.5 fL Normal 80.0-100.0 [facility] Comment on above: Order Comment: Speci men Type: BLOOD SPECIMENOrdering Facility: [facility] Address: [address] [place] [address] Performed By: #### 5 8410-2 ####[facility] LABCLIA [id number] [facility] [place] [address] [place] Platelet mean volume (Bld) [Entitic vol] 12.0 fL Normal 9.0-12.7 [facility] Comment on above: Order Comment: Speci men Type: BLOOD SPECIMENOrdering Facility: [facility] Address: [address] [place] [address] Performed By: #### 5 8410-2 ####[facility] LABCLIA [id number] [facility] [place] [address] [place] Platelets (Bld) [#/Vol] 169 10*3/uL Normal 150-400 [facility] Comment on above: Order Comment: Speci men Type: BLOOD SPECIMENOrdering Facility: [facility] Address: [address] [place] [address] Performed By: #### 5 8410-2 ####[facility] LABCLIA [id number] [place] [address] [facility] RBC (Bld) [#/Vol] 4.68 10*6/uL Normal 3.90-5.20 [facility] Comment on above: Order Comment: Speci men Type: BLOOD SPECIMENOrdering Facility: [facility] Address: [address] [place] [address] Performed By: #### 5 8410-2 ####[facility] LABCLIA [id number] [place] [address] [facility] WBC (Bld) [#/Vol] 6.41 10*3/uL Normal 3.70-11.00 [facility] Comment on above: Order Comment: Speci men Type: BLOOD SPECIMENOrdering Facility: [facility] Address: [address] [place] [address] Performed By: #### 5 8410-2 ####[facility] LABCLIA [id number] [place] [address] [facility] CNOVon 12-05-2024 CNOV Office Visit (AGINTM LW) -- BHASKARBRANDON Prince ([id number]) 1945 F Date Time Provider Department 12/05/24 10:00 AM PILAR FERRERINTMLW During your visit today, we recorded the following information about you: Temperature Pulse Blood pressure Weight 97.9 degrees 72/minute 120/68 95.4 kg Height 1.562 m Pilar Ferrer, RESOURCE CONSERVATION MANAGER.BILINGUAL TEACHER 12/05/2024 10:46 AM Signed Brandon Prince Bhaskar is a 79 year old female here for a Medicare wellness visit. PMH HTN, lupus, allergies, anxiety, depression, aortic stenosis. Patient denies changes in health since last office visit. Reports feeling well. Denies concerns or complaints today. I reviewed patients past medical, surgical, social, and family histories today and updated chart. Allergies, chronic medications, and supplements were also reviewed and list is now up to date. 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 - Walks frequently at work. - Wears glasses for astigmatism and hearing aids. - Has a living will and durable power of attorney lawyer for healthcare; sons Dallas Sharma and French Rhodes are designated as surrogate decision makers. - Mother, aged 96, has onset dementia and lives independently. - Dating a man with a 53-year-old son with Down syndrome; they visit on weekends. - Granddaughter is getting in February. - Recent fall about a month ago while emptying a dehumidifier, resulting in bruising on the left arm and soreness in the knee. Bruising has resolved, but a small lump remains on the arm. - Denies head trauma during the fall. HTN: Ms. Muro indicates that she is feeling well and denies any symptoms referable to elevated blood pressure. Specifically denies headache, chest pain, palpitations, dyspnea, peripheral edema, claudication symptoms, orthopnea, fatigue, and PND. Patient denies any side effects of her medication(s) and is compliant with their regimen. She does not check BP's generally. Brandno works out regularly 2-3 times per week with walking and pool work out. She watches her diet for sodium, low fat and low cholesterol some of the time. She is taking norvasc 5 mg, losartan 100 mg daily, HCTZ 12.5 mg daily. Lupus: She is seeing Dr Rios for management. - Managed by Dr. Garduno, taking Plaquenil 200 mg BID. - Discontinued Areva due to hair loss. - Experiences leg pain related to lupus. Depression and anxiety: she is taking Effexor 75 mg twice daily for management. She reports her rheum Dr Rios increased her dose ~ 6 months ago. She was started on Effexor after her in 2017. States anxiety has been controlled with effexor. 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 She reports she really enjoys going and keeps her mind off things.Denies feeling depressed or thoughts of suicide. reports if she misses doses she can tell and feels anxious. Reports she met a real nice man and states she hangs out with him a lot. States this has helped her depression. He has a 50 yo disabled child that he cares for. She feels they have been a blessing to her. She reports she has not reason to be down but feels more depressed. - Increased feelings of depression and fatigue, with no identified cause. - Describes current mood as down and tired. - Reports seasonal affective disorder, with mood affected by winter and spring weather. - Stress eating and weight gain noted over the past three weeks. - Currently taking Effexor 75 mg BID, increased from QD approximately six months ago by fish farmer Dr. Garduno for pain management. - Denies anxiety. Aortic stenosis: reports having murmur for years. Last echo 2015. Denies symptoms. She is seeing DR Steinberg cardiology [facility]. - Longstanding history of aortic stenosis, managed by buck presser Dr. Low. - Missed a recent appointment on November 23; plans to reschedule. - Unsure of the date of the last echocardiogram, but recalls some testing in May. - Denies chest pain, palpitations, or dyspnea. Allergies: environmental, chronic. She is using flonase and allergy medication daily. Reports when her allergies are really bad she will use her albuterol inhaler due to feeling SOB which helps with her symptoms. She is former smoker as well. CKD: She has history renal insuffiency and was seeing Dr Tyson in [place]. States she was taking medication for arthritis and once she went off it her kidneys improved. Chronic Cough: - Reports frequent coughing, attributed to post-nasal drainage and allergies. - Cough is non-productive and varies in frequency, often triggered by outdoor exposure. - Denies dyspnea. Cholecystectomy: - History of cholecystectomy; experiences occasional urgency and incontinence. - Carries extra underwear due to (more content not included)... Normal [facility] Comprehensive metabolic 2000 panelon 12-05-2024 Albumin [Mass/Vol] 4.3 g/dL 3.9 - 4.9 g/dL [facility] ALP [Catalytic activity/Vol] 70 U/L 34 - 123 U/L [facility] ALT With P-5'-P [Catalytic activity/Vol] 15 U/L 7 - 38 U/L [facility] Anion gap [Moles/Vol] 11 mmol/L 8 - 15 mmol/L [facility] AST With P-5'-P [Catalytic activity/Vol] 22 U/L 13 - 35 U/L [facility] Bilirubin [Mass/Vol] 0.4 mg/dL 0.2 - 1.3 mg/dL [facility] Calcium [Mass/Vol] 9.9 mg/dL 8.5 - 10. 2 mg/dL [facility] Chloride [Moles/Vol] 104 mmol/L 98 - 107 mmol/L [facility] CO2 [Moles/Vol] 27 mmol/L 22 - 30 mmol/L [facility] Creatinine [Mass/Vol] 1.31 mg/dL High 0.58 - 0.96 mg/dL [facility] GFR/1.73 sq M.predicted among non-blacks MDRD (S/P/Bld) [Vol rate/Area] 42 mL/min/{1.73_m2} Low - PINF [facility] Comment on above: Estimated Glomerular Filtration [...] not accurately reflect actual GFR. Glucose [Mass/Vol] 101 mg/dL High 74 - 99 mg/dL [facility] Comment on above: The [place] Diabete s Association (ADA) provides guidance for [...] Standards of Medical Care in Diabetes 2016, [place] Diabetes Association. Diabetes Care. 2016.39(Suppl 1). Potassium [Moles/Vol] 3.9 mmol/L 3.7 - 5.1 mmol/L [facility] Protein [Mass/Vol] 7.4 g/dL 6.3 - 8.0 g/dL [facility] Sodium [Moles/Vol] 142 mmol/L 136 - 144 mmol/L [facility] Urea nitrogen [Mass/Vol] 18 mg/dL 7 - 21 mg/dL [facility] Albumin [Mass/Vol] 4.3 g/dL Normal 3.9-4.9 [facility] Comment on above: Order Comment: Speci men Type: BLOOD SPECIMEN [facility]ing Facility: [facility] Address: [address] [place] [address] Performed By: #### 2 4331-1, 3015-3, 02935-7 #### [facility] CLIA [id number] [address] [place] [address] [place] ALP [Catalytic activity/Vol] 70 U/L Normal 34-123 [facility] Comment on above: Order Comment: Speci men Type: BLOOD SPECIMEN Ordering Facility: [facility] Address: [address] [place] [address] Performed By: #### 2 4331-1, 3015-3, 43289-4 #### [facility] CLIA [id number] [address] [place] [address] [place] ALT With P-5'-P [Catalytic activity/Vol] 15 U/L Normal 7-38 [facility] Comment on above: Order Comment: Speci men Type: BLOOD SPECIMEN Ordering Facility: [facility] Address: [address] [place] [address] Performed By: #### 2 4331-1, 3015-3, 21170-7 #### [facility] CLIA [id number] [address] [place] [address] [place] Anion gap [Moles/Vol] 11 mmol/L Normal 8-15 [facility] Comment on above: Order Comment: Speci men Type: BLOOD SPECIMEN Ordering Facility: [facility] Address: [address] [place] [address] Performed By: #### 2 4331-1, 3015-3, 16493-6 #### [facility] CLIA [id number] [address] [place] [address] [place] AST With P-5'-P [Catalytic activity/Vol] 22 U/L Normal 13-35 [facility] Comment on above: Order Comment: Speci men Type: BLOOD SPECIMEN Ordering Facility: [facility] Address: [address] [place] [address] Performed By: #### 2 4331-1, 3016-3, 05957-3 #### [facility] CLIA [id number] [address] [place] [address] [place] Bilirubin [Mass/Vol] 0.4 mg/dL Normal 0.2-1.3 [facility] Comment on above: Order Comment: Speci men Type: BLOOD SPECIMEN Ordering Facility: [facility] Address: [address] [place] [address] Performed By: #### 2 4331-1, 3015-3, 95350-4 #### [facility] CLIA [id number] [address] [place] [address] [place] Calcium [Mass/Vol] 9.9 mg/dL Normal 8.5-10.2 [facility] Comment on above: Order Comment: Speci men Type: BLOOD SPECIMEN Ordering Facility: [facility] Address: [address] [place] [address] Performed By: #### 2 4331-1, 6-3, 73469-8 #### [facility] CLIA [id number] [address] [place] [address] [place] Chloride [Moles/Vol] 104 mmol/L Normal 98-107 [facility] Comment on above: Order Comment: Speci men Type: BLOOD SPECIMEN Ordering Facility: [facility] Address: [address] [place] [address] Performed By: #### 2 4331-1, 3016-3, 73677-9 #### [facility] CLIA [id number] [address] [place] [address] [place] CO2 [Moles/Vol] 27 mmol/L Normal 22-30 [facility] Comment on above: Order Comment: Avelina bedolla Type: BLOOD SPECIMEN Ordering Facility: [facility] Address: [address] [id number] Performed By: #### 2 4331-1, 3015-3, #### [facility] CLIA [id number] [address] [place] [address] [place] Creatinine [Mass/Vol] 1.31 mg/dL High 0.58-0.96 [facility] Comment on above: Order Comment: Speci men Type: BLOOD SPECIMEN Ordering Facility: [facility] Address: [address] [place] [address] Performed By: #### 2 4331-1, 3, #### [facility] CLIA [id number] [address] [place] [address] [place] Creatinine and Glomerular filtration rate.predicted panel (S/P/Bld) 42 mL/min/1.73m??? Low >=60 [facility] Comment on above: Order Comment: Avelina bedolla Type: BLOOD SPECIMEN Ordering Facility: [facility] Address: [address] [place] [address] Result Comment: Meagan mated Glomerular Filtration Rate [...] actual GFR. Performed By: #### 2 4331-1, 3, #### [facility] CLIA [id number] [address] [place] [address] [place] Glucose [Mass/Vol] 101 mg/dL High 74-99 [facility] Comment on above: Order Comment: Avelina bedolla Type: BLOOD SPECIMEN Ordering Facility: [facility] Address: [address] [place] [address] Result Comment: The [place] Diabetes Association (ADA) provides guidance for cutoff [...] Standards of Medical Care in Diabetes 2016, [place] Diabetes Association. Diabetes Care. 2016.39(Suppl 1). Performed By: #### 2 4331-1, 3015-3, 31523-8 #### [facility] CLIA [id number] [address] [place] [address] [place] Potassium [Moles/Vol] 3.9 mmol/L Normal 3.7-5.1 [facility] Comment on above: Order Comment: Avelina bedolla Type: BLOOD SPECIMEN Ordering Facility: [facility] Address: [address] [place] [address] Performed By: #### 2 4331-1, 3, 08798-5 #### [facility] CLIA [id number] [address] [place] [address] [place] Protein [Mass/Vol] 7.4 g/dL Normal 6.3-8.0 [facility] Comment on above: Order Comment: Avelina bedolla Type: BLOOD SPECIMEN Ordering Facility: [facility] Address: [address] [place] [address] Performed By: #### 2 4331-1, 3015-3, 82769-5 #### [facility] CLIA [id number] [address] [place] [address] [place] Sodium [Moles/Vol] 142 mmol/L Normal 136-144 [facility] Comment on above: Order Comment: Avelina bedolla Type: BLOOD SPECIMEN Ordering Facility: [facility] Address: [address] [place] [address] Performed By: #### 2 4331-1, 3016-3, 46380-2 #### [facility] CLIA [id number] [address] [place] [address] [place] Urea nitrogen [Mass/Vol] 18 mg/dL Normal 7-21 [facility] Comment on above: Order Comment: Avelnia bedolla Type: BLOOD SPECIMEN Ordering Facility: [facility] Address: [address] [place] [address] Performed By: #### 2 4331-1, 3015-3, 34763-2 #### [facility] CLIA [id number] [address] [place] [address] [place] HbA1c (Bld)on 12-05-2024 Average glucose Estimated from glycated hemoglobin (Bld) [Mass/Vol] 114 mg/dL Normal [facility] Comment on above: Order Comment: [facility] Type: BLOOD SPECIMENOrdering Facility: [facility] Address: [address] [place] [address] Result Comment: eAG: (Estimated average glucose) is a calculated value from HgbA1c and is union contract representative of the average blood glucose level in the last 2-3 month period. Performed By: #### 5 5454-3 ####[facility] LABCLIA [id number] [address] [address] [place] [facility] HbA1c (Bld) [Mass fraction] 5.6 % Normal 4.3-5.6 [facility] Comment on above: Order Comment: [facility] Type: BLOOD SPECIMENOrdering Facility: [facility] Address: [address] [place] [address] Result Comment: Amer [place] Diabetes Association guidelines indicate that patients with HgbA1c in the range 5.7-6.4% are at increased risk for development of diabetes, and intervention by lifestyle modification may be beneficial. HgbA1c greater or equal to 6.5% is considered diagnostic of diabetes. Performed By: #### 5 5454-3 ####[facility] LABCLIA [id number] [address] [address] [place] Lipid 1996 panelon 06-10-202 5 Cholesterol [Mass/Vol] 224 mg/dL High NINF - 200 mg/dL [facility] Comment on above: <200 mg/dL, Desirabl e 200-239 mg/dL, Borderline high >239 mg/dL, High Cholesterol in HDL [Mass/Vol] 83 mg/dL 39 - PINF mg/dL [facility] Comment on above: 40-59 mg/dL, Accepta ble >59 mg/dL, High: Negative risk factor for coronary heart disease <40 mg/dL, Low: Positive risk factor for coronary heart disease Cholesterol in LDL [Mass/Vol] 127 mg/dL High NINF - 100 mg/dL [facility] Comment on above: <100 mg/dL, Optimal 100-129 mg/dL, Near optimal/above optimal 130-159 mg/dL, Borderline high 160-189 mg/dL, High >189 mg/dL, Very high Secondary prevention optimal LDL Cholesterol levels are recommended to be <70 mg/dL LDL cholesterol is calculated using the Denise-NIH equation. Cholesterol in LDL/Cholesterol in HDL [Mass ratio] 1.53 {ratio} NINF - 2.54 [facility] Comment on above: Reference: 1. National Cholesterol Education Program ATP III Guideline At-A-Glance Quick Desk Reference: National Heart, Lung, and Blood [place]. National Institutes of Health. 2001: NIH Publication No. 01-3305. 2. An International Atherosclerosis Society position paper: global recommendations for the management of dyslipidemia: executive summary, Atherosclerosis. 2014: 232(2):410-413. Cholesterol in VLDL [Mass/Vol] 14 mg/dL NINF - 30 mg/dL [facility] Cholesterol non HDL [Mass/Vol] 141 mg/dL High NINF - 130 mg/dL [facility] Comment on above: <130 mg/dL, Optimal 130-159 mg/dL, Near optimal/above optimal 160-189 mg/dL, Borderline high 190-219 mg/dL, High >219 mg/dL, Very high Secondary prevention optimal non HDL Cholesterol levels are recommended to be <100 mg/dL Cholesterol.total/C holesterol in HDL [Mass ratio] 2.7 {ratio} NINF - 5.10 [facility] Fasting Time 12 hrs [facility] Triglyceride [Mass/Vol] 80 mg/dL NINF - 150 mg/dL [facility] Comment on above: <150 mg/dL, Normal 150-199 mg/dL, Borderline high 200-499 mg/dL, High >499 mg/dL, Very high Cholesterol [Mass/Vol] 224 mg/dL High <200 [facility] Comment on above: Order Comment: Avelina bedolla Type: BLOOD SPECIMEN Ordering Facility: [facility] Address: [address] [place] [address] Result Comment: <200 mg/dL, Desirable 200-239 mg/dL, Borderline high >239 mg/dL, High Performed By: #### 2 4331-1, 301-3, 55365-0 #### [facility] CLIA [id number] [address] [place] [address] [place] Cholesterol in HDL [Mass/Vol] 83 mg/dL Normal >39 [facility] Comment on above: Order Comment: Avelina bedolla Type: BLOOD SPECIMEN Ordering Facility: [facility] Address: [address] [place] [address] Result Comment: 40-5 9 mg/dL, Acceptable >59 mg/dL, High: Negative risk factor for coronary heart disease <40 mg/dL, Low: Positive risk factor for coronary heart disease Performed By: #### 2 4331-1, 3015-3, #### [facility] CLIA [id number] [address] [place] [address] [place] Cholesterol in LDL [Mass/Vol] 127 mg/dL High <100 [facility] Comment on above: Order Comment: Avelina bedolla Type: BLOOD SPECIMEN Ordering Facility: [facility] Address: [address] [place] [address] Result Comment: <100 mg/dL, Optimal 100-129 mg/dL, Near optimal/above optimal 130-159 mg/dL, Borderline high 160-189 mg/dL, High >189 mg/dL, Very high Secondary prevention optimal LDL Cholesterol levels are recommended to be <70 mg/dL LDL cholesterol is calculated using the Denise-NIH equation. Performed By: #### 2 4331-1, 6-3, 51535-4 #### [facility] CLIA [id number] [address] [place] [address] [place] Cholesterol in LDL/Cholesterol in HDL [Mass ratio] 1.53 {ratio} Normal <2.54 [facility] Comment on above: Order Comment: Chrismarichuy bedolla Type: BLOOD SPECIMEN Ordering Facility: [facility] Address: [address] [place] [address] Result Comment: Melissa guerrero: 1. National Cholesterol Education Program ATP III Guideline At-A-Glance Quick Desk Reference: National Heart, Lung, and Blood [place]. National Institutes of Health. 2001: NIH Publication No. 01-3305. 2. An International Atherosclerosis Society position paper: global recommendations for the management of dyslipidemia: executive summary, Atherosclerosis. 2014: 232(2):410-413. Performed By: #### 2 4331-1, 3015-3, #### [facility] CLIA [id number] [address] [place] [address] [facility] Cholesterol in VLDL [Mass/Vol] 14 mg/dL Normal <30 [facility] Comment on above: Order Comment: Avelina bedolla Type: BLOOD SPECIMEN Ordering Facility: [facility] Address: [address] [place] [address] Performed By: #### 2 4331-1, 3015-3, 43822-4 #### [facility] CLIA [id number] [address] [place] [address] [facility] Cholesterol non HDL [Mass/Vol] 141 mg/dL High <130 [facility] Comment on above: Order Comment: Chrismarichuy bedolla Type: BLOOD SPECIMEN Ordering Facility: [facility] Address: [address] [place] [address] Result Comment: <130 mg/dL, Optimal 130-159 mg/dL, Near optimal/above optimal 160-189 mg/dL, Borderline high 190-219 mg/dL, High >219 mg/dL, Very high Secondary prevention optimal non HDL Cholesterol levels are recommended to be <100 mg/dL Performed By: #### 2 4331-1, 6-3, 89635-3 #### [facility] CLIA [id number] [address] [place] [address] [facility] [place] Cholesterol.total/C holesterol in HDL [Mass ratio] 2.70 {ratio} Normal <5.10 [facility] Comment on above: Order Comment: Speci men Type: BLOOD SPECIMEN Ordering Facility: [facility] Address: [address] [place] [address] Performed By: #### 2 4331-1, 6-3, #### [facility] CLIA [id number] [address] [place] [address] [place] FASTING TIME 12 hrs Normal [facility] Comment on above: Order Comment: Speci men Type: BLOOD SPECIMEN Ordering Facility: [facility] Address: [address] [place] [address] Performed By: #### 2 4331-1, 3015-3, #### [facility] CLIA [id number] [address] [place] [address] [place] Triglyceride [Mass/Vol] 80 mg/dL Normal <150 [facility] Comment on above: Order Comment: Speci men Type: BLOOD SPECIMEN Ordering Facility: [facility] Address: [address] [place], [place] [id number] Result Comment: <150 mg/dL, Normal 150-199 mg/dL, Borderline high 200-499 mg/dL, High >499 mg/dL, Very high Performed By: #### 2 4331-1, 3015-3, #### [facility] CLIA [id number] [address] [place] [address] [place] No Panel Informationon 12-05 Interpretation and review of laboratory results Abnormal [facility] THYROID STIMULATING HORMONEo n 12-05-2024 TSH Qn 4.38 m[IU]/L High [facility] TSH SerPl-aCncon 12-05-2024 TSH Qn 4.380 m[IU]/L High 0.270-4.200 [facility] Comment on above: Order Comment: Speci men Type: BLOOD SPECIMENOrdering Facility: [facility] Address: [address] [place] [address] Performed By: #### 2 4331-1, 6-3, 51292-9 ####[facility] [id number] [place] [address] [place] VITAMIN D 25 HYDROXYon 12-05 25-hydroxyvitamin D3 [Mass/Vol] 29.9 ng/mL Low 30.0 - PINF ng/mL [facility] Comment on above: Classification of 25 [place] Vitamin D status: Deficiency: <= 20.0 ng/ml. Insufficiency: 21.0-29.0 ng/ml. Sufficiency: >= 30.0 ng/ml. CBC (INCLUDES DIFF/PLT)on Basophils (Bld) [#/Vol] 0.068 10*3/uL Normal 0-200 [facility] Comment on above: Performed By: #### 9 5523, 6399 #### [facility] of [place] [address] Documentation Engineer: Ney Whitten MD Basophils/100 WBC (Bld) 1.3 % Normal [facility] Comment on above: Performed By: #### 9 220, 6399 #### [facility] [place] [address] Documentation Engineer: Ney Whitten MD Eosinophils (Bld) [#/Vol] 0.218 10*3/uL Normal 15-500 [facility] Comment on above: Performed By: #### 9 406, 6399 #### [facility] [address], [address] [place] [address] Documentation Engineer: Ney Whitten MD Eosinophils/100 WBC (Bld) 4.2 % Normal [facility] Comment on above: Performed By: #### 9 785, 6399 #### [facility] [place] [address] Documentation Engineer: Ney Whitten MD Erythrocyte distribution width (RBC) [Ratio] 14.2 % Normal 11.0-15.0 [facility] Comment on above: Performed By: #### 9 042, 6399 #### [facility] [address] [place] [address] Documentation Engineer: Ney Whitten MD Hematocrit (Bld) [Volume fraction] 37.9 % Normal 35.0-45.0 [facility] Comment on above: Performed By: #### 9 320, 6399 #### [facility] [place] [address] Documentation Engineer: Ney Whitten MD Hemoglobin (Bld) [Mass/Vol] 12.3 g/dL Normal 11.7-15.5 [facility] Comment on above: Performed By: #### 9 2664, 6399 #### [facility] [place] [address] Documentation Engineer: Ney Whitten MD Lymphocytes (Bld) [#/Vol] 1.3 10*3/uL Normal 850-3900 [facility] Comment on above: Performed By: #### 9 393, 6399 #### [facility] [place] [address] Documentation Engineer: Ney Whitten MD Lymphocytes/100 WBC (Bld) 25.0 % Normal [facility] Comment on above: Performed By: #### 9 285, 6399 #### [facility] [place] [address] Documentation Engineer: Ney Whitten MD MCH (RBC) [Entitic mass] 27.6 pg Normal 27.0-33.0 [facility] Comment on above: Performed By: #### 9 266, 6399 #### [facility] [place] [address] Documentation Engineer: Ney Whitten MD MCHC (RBC) [Mass/Vol] 32.5 g/dL Normal 32.0-36.0 [facility] Comment on above: Result Comment: For adults, a slight decrease in the calculated MCHC value (in the range of 30 to 32 g/dL) is most likely not clinically significant; however, it should be interpreted with caution in correlation with other red cell parameters and the patient's clinical condition. Performed By: #### 9 2664, 6399 #### [facility] of [address], [address] [place] [address] Documentation Engineer: Ney Whitten MD MCV (RBC) [Entitic vol] 85.2 fL Normal 80.0-100.0 [facility] Comment on above: Performed By: #### 9 702, 6399 #### [facility] of [address], [address] [place] [address] Documentation Engineer: Ney Whitten MD Monocytes (Bld) [#/Vol] 0.39 10*3/uL Normal 200-950 [facility] Comment on above: Performed By: #### 9 2664, 6399 #### [facility] of [address], [address] [place] [address] Documentation Engineer: Ney Whitten MD Monocytes/100 WBC (Bld) 7.5 % Normal [facility] Comment on above: Performed By: #### 9 2664, 6399 #### [facility] of [address], [address] [place] [address] Documentation Engineer: Ney Whitten MD Neutrophils (Bld) [#/Vol] 3.224 10*3/uL Normal 6529-7790 [facility] Comment on above: Performed By: #### 9 2664, 6399 #### [facility] of [address], [address] [place] [address] Documentation Engineer: Ney Whitten MD Neutrophils/100 WBC (Bld) 62 % Normal [facility] Comment on above: Performed By: #### 9 2664, 6399 #### [facility] of [address], [address] [place] [address] Documentation Engineer: Ney Whitten MD Platelet mean volume (Bld) [Entitic vol] 12.2 fL Normal 7.5-12.5 [facility] Comment on above: Performed By: #### 9 916, 6399 #### [facility] of [address], [address] [place] [address] Documentation Engineer: Ney Whitten MD Platelets (Bld) [#/Vol] 156 10*3/uL Normal 140-400 [facility] Comment on above: Performed By: #### 9 5995, 6399 #### [facility] of [address], [address] [place] [address] Documentation Engineer: Ney Whitten MD RBC (Bld) [#/Vol] 4.45 10*6/uL Normal 3.80-5.10 [facility] Comment on above: Performed By: #### 9 5, 6399 #### [facility] of [address], [address] [place] [address] Documentation Engineer: Ney Whitten MD WBC (Bld) [#/Vol] 5.2 10*3/uL Normal 3.8-10.8 [facility] Comment on above: Performed By: #### 9 2664, 6399 #### [facility] [place] [address] Documentation Engineer: Ney Whitten MD COMPREHENSIVE METABOLIC PANE L W/ANION [place] 2024 Albumin [Mass/Vol] 4.3 g/dL Normal 3.6-5.1 [facility] Comment on above: Performed By: #### 9 2665, 6399 #### [facility] [place] [address] Documentation Engineer: Ney Whitten MD ALP [Catalytic activity/Vol] 55 U/L Normal 37-153 [facility] Comment on above: Performed By: #### 9 266, 6399 #### [facility] [place] [address] Documentation Engineer: Ney Whitten MD ALT [Catalytic activity/Vol] 14 U/L Normal 6-29 [facility] Comment on above: Performed By: #### 9 266, 6399 #### [facility] [place] [address] Documentation Engineer: Ney Whitten MD AST [Catalytic activity/Vol] 20 U/L Normal 10-35 [facility] Comment on above: Performed By: #### 9 5, 6399 #### [facility] of [address], [address] [place] [address] Documentation Engineer: Ney Whitten MD Bilirubin [Mass/Vol] 0.6 mg/dL Normal 0.2-1.2 [facility] Comment on above: Performed By: #### 9 5, 6399 #### [facility] of [address], [address] [place] [address] Documentation Engineer: Ney Whitten MD Calcium [Mass/Vol] 9.6 mg/dL Normal 8.6-10.4 [facility] Comment on above: Performed By: #### 9 2664, 6399 #### [facility] of [address], [address] [place] [address] Documentation Engineer: Ney Whitten MD Chloride [Moles/Vol] 104 mmol/L Normal 98-110 [facility] Comment on above: Performed By: #### 9 965, 6399 #### [facility] [place] [address] Documentation Engineer: Ney Whitten MD CO2 [Moles/Vol] 28 mmol/L Normal 20-32 [facility] Comment on above: Performed By: #### 9 024, 6399 #### [facility] [place] [address] Documentation Engineer: Ney Whitten MD Creatinine [Mass/Vol] 1.21 mg/dL High 0.60-1.00 [facility] Comment on above: Performed By: #### 9 532, 6399 #### [facility] of [address], [address] [place] [address] Documentation Engineer: Ney Whitten MD ELECTROLYTE BALANCE 9 mmol/L (calc) Normal 7-17 [facility] Comment on above: Performed By: #### 9 885, 6399 #### [facility] of [address], [address] [place] [address] Documentation Engineer: Ney Whitten MD GFR/1.73 sq M.predicted among non-blacks MDRD (S/P/Bld) [Vol rate/Area] 46 mL/min/{1.73_m2} Low > OR = 60 [facility] Comment on above: Performed By: #### 9 962, 6399 #### [facility] [place] [address] Documentation Engineer: Ney Whitten MD Glucose [Mass/Vol] 93 mg/dL Normal 65-99 [facility] Comment on above: Result Comment: Fasting reference interval Performed By: #### 9 2664, 6399 #### [facility] [place] [address] Documentation Engineer: Ney Whitten MD Potassium [Moles/Vol] 3.8 mmol/L Normal 3.5-5.3 [facility] Comment on above: Performed By: #### 9 2664, 6399 #### [facility] [place] [address] Documentation Engineer: Ney Whitten MD Protein [Mass/Vol] 6.8 g/dL Normal 6.1-8.1 [facility] Comment on above: Performed By: #### 9 644, 6399 #### [facility] [place] [address] Documentation Engineer: Ney Whitten MD Sodium [Moles/Vol] 141 mmol/L Normal 135-146 [facility] Comment on above: Performed By: #### 9 2664, 6399 #### [facility] [place] [address] Documentation Engineer: Ney Whitten MD Urea nitrogen [Mass/Vol] 22 mg/dL Normal 7-25 [facility] Comment on above: Performed By: #### 9 618, 6399 #### [facility] [place] [address] Documentation Engineer: Ney Whitten MD CBC W Auto Differential pane l (Bld)on 07-06-2024 Basophils (Bld) [#/Vol] 0.09 x10*3/uL Normal 0.00-0.10 [facility] Comment on above: Performed By: #### 7021-8 #### NEERAJ BARTON ([id number]) [facility] ([facility]) [address] [place] [address] Basophils/100 WBC (Bld) 1.6 % Normal 0.0-2.0 [facility] Comment on above: Performed By: #### 7021-8 #### NEERAJ BARTON ([id number]) [facility] ([facility]) [address] [place] [address] Eosinophils (Bld) [#/Vol] 0.21 x10*3/uL Normal 0.00-0.40 [facility] Comment on above: Performed By: #### 7021-8 #### NEERAJ BARTON ([id number]) [facility] ([facility]) [address] [place] [address] Eosinophils/100 WBC (Bld) 3.8 % Normal 0.0-6.0 [facility] Comment on above: Performed By: #### 7021-8 #### NEERAJ BARTON ([id number]) [facility] ([facility]) [address] [place] [address] Erythrocyte distribution width (RBC) [Ratio] 14.1 % Normal 11.5-14.5 [facility] Comment on above: Performed By: #### 7021-8 #### NEERAJ BARTON ([id number]) [facility] ([facility]) [address] [place] [address] Hematocrit (Bld) [Volume fraction] 39.0 % Normal 36.0-46.0 [facility] Comment on above: Performed By: #### 7021-8 #### NEERAJ BARTON ([id number]) [facility] ([facility]) [address] [place] [address] Hemoglobin (Bld) [Mass/Vol] 12.5 g/dL Normal 12.0-16.0 [facility] Comment on above: Performed By: #### 7021-8 #### NEERAJ BARTON ([id number]) [facility] ([facility]) [address] [place] [address] Immature granulocytes (Bld) [#/Vol] 0.07 x10*3/uL Normal 0.00-0.50 [facility] Comment on above: Performed By: #### 5 7021-8 #### NEERAJ BARTON ([id number]) [facility] ([facility]) [address] [place] [address] 58056 Immature granulocytes/100 WBC (Bld) 1.3 % High 0.0-0.9 [facility] Comment on above: Result Comment: Jeannie ture Granulocyte Count (IG) includes promyelocytes, myelocytes and metamyelocytes but does not include bands. Percent differential counts (%) should be interpreted in the context of the absolute cell counts (cells/UL). Performed By: #### 5 7021-8 #### NEERAJ BARTON ([id number]) [facility] ([facility]) [address] [place] [address] 42820 Lymphocytes (Bld) [#/Vol] 1.37 x10*3/uL Normal 0.80-3.00 [facility] Comment on above: Performed By: #### 5 7021-8 #### NEERAJ BARTON ([id number]) [facility] ([facility]) [address] [place] [address] 09133 Lymphocytes/100 WBC (Bld) 24.8 % Normal 13.0-44.0 [facility] Comment on above: Performed By: #### 5 7021-8 #### NEERAJ BARTON ([id number]) [facility] ([facility]) [address] [place] [address] 99894 MCH (RBC) [Entitic mass] 27.3 pg Normal 26.0-34.0 [facility] Comment on above: Performed By: #### 5 7021-8 #### NEERAJ BARTON ([id number]) [facility] ([facility]) [address] [place] [address]360 MCHC (RBC) [Mass/Vol] 32.1 g/dL Normal 32.0-36.0 [facility] Comment on above: Performed By: #### 5 7021-8 #### NEERAJ BARTON ([id number]) [facility] ([facility]) [address] [place] [address] 87299 MCV (RBC) [Entitic vol] 85 fL Normal 80-100 [facility] Comment on above: Performed By: #### 5 7021-8 #### NEERAJ BARTON ([id number]) [facility] ([facility]) [address] [place] [address] 99947 Monocytes (Bld) [#/Vol] 0.38 x10*3/uL Normal 0.05-0.80 [facility] Comment on above: Performed By: #### 5 7021-8 #### NEERAJ BARTON ([id number]) [facility] ([facility]) [address] [place] [address] 72521 Monocytes/100 WBC (Bld) 6.9 % Normal 2.0-10.0 [facility] Comment on above: Performed By: #### 5 7021-8 #### NEERAJ BARTON ([id number]) [facility] ([facility]) [address] [place] [address] 61201 Neutrophils (Bld) [#/Vol] 3.40 x10*3/uL Normal 1.60-5.50 [facility] Comment on above: Result Comment: Perc ent differential counts (%) should be interpreted in the context of the absolute cell counts (cells/uL). Performed By: #### 5 7021-8 #### NEERAJ BARTON ([id number]) [facility] ([facility]) [address] [place] [address] 92865 Neutrophils/100 WBC (Bld) 61.6 % Normal 40.0-80.0 [facility] Comment on above: Performed By: #### 5 7021-8 #### NEERAJ BARTON ([id number]) [facility] ([facility]) [address] [place] [address] 82339 Nucleated RBC/100 WBC (Bld) [Ratio] 0.0 /100 WBCs Normal 0.0-0.0 [facility] Comment on above: Performed By: #### 5 7021-8 #### NEERAJ BARTON ([id number]) [facility] ([facility]) [address] [place] [address] 86988 Platelets (Bld) [#/Vol] 168 x10*3/uL Normal 150-450 [facility] Comment on above: Performed By: #### 5 7021-8 #### NEERAJ BARTON ([id number]) [facility] ([facility]) [address] [place] [address] RBC (Bld) [#/Vol] 4.58 x10*6/uL Normal 4.00-5.20 [facility] Comment on above: Performed By: #### 5 7021-8 #### NEERAJ BARTON ([id number]) [facility] ([facility]) [address] [place] [address] WBC (Bld) [#/Vol] 5.5 x10*3/uL Normal 4.4-11.3 [facility] Comment on above: Performed By: #### 5 7021-8 #### NEERAJ BARTON ([id number]) [facility] ([facility]) [address] [place] [address] Comprehensive metabolic 2000 panelon 07-06-2024 Albumin BCP dye [Mass/Vol] 4.1 g/dL Normal 3.4-5.0 [facility] Comment on above: Performed By: #### 2 4325-3 #### NEERAJ BARTON ([id number]) [facility] ([facility]) [address] [place] [address] ALP [Catalytic activity/Vol] 39 U/L Normal 33-136 [facility] Comment on above: Performed By: #### 2 4325-3 #### NEERAJ BARTON ([id number]) [facility] ([facility]) [address] [place], [place] [address] ALT With P-5'-P [Catalytic activity/Vol] 19 U/L Normal 7-45 [facility] Comment on above: Result Comment: Abril ents treated with Sulfasalazine may generate falsely decreased results for ALT. Performed By: #### 2 5-3 #### NEERAJ BARTON ([id number]) [facility] ([facility]) [address] [place] [address] Anion gap [Moles/Vol] 12 mmol/L Normal 10-20 [facility] Comment on above: Performed By: #### 2 4324-3 #### NEERAJ BARTON ([id number]) [facility] ([facility]) [address] [place] [address] AST With P-5'-P [Catalytic activity/Vol] 25 U/L Normal 9-39 [facility] Comment on above: Performed By: #### 2 4324-3 #### NEERAJ BARTON ([id number]) [facility] ([facility]) [address] [place] [address] Bilirubin [Mass/Vol] 0.5 mg/dL Normal 0.0-1.2 [facility] Comment on above: Performed By: #### 2 4324-3 #### NEERAJ BARTON ([id number]) [facility] ([facility]) [address] [place] [address] Calcium [Mass/Vol] 9.7 mg/dL Normal 8.6-10.3 [facility] Comment on above: Performed By: #### 2 4324-3 #### NEERAJ BARTON ([id number]) [facility] ([facility]) [address] [place] [address] Chloride [Moles/Vol] 103 mmol/L Normal 98-107 [facility] Comment on above: Performed By: #### 2 4324-3 #### NEERAJ BARTON ([id number]) [facility] ([facility]) [address] [place] [address] CO2 [Moles/Vol] 29 mmol/L Normal 21-32 [facility] Comment on above: Performed By: #### 2 4324-3 #### NEERAJ BARTON ([id number]) [facility] ([facility]) [address] [place] [address] Creatinine [Mass/Vol] 1.31 mg/dL High 0.50-1.05 [facility] Comment on above: Performed By: #### 2 5-3 #### NEERAJ BARTON ([id number]) [facility] ([facility]) [address] [place] [address]1003 Glomerular filtration rate/1.73 sq M.predicted 42 mL/min/1.73m*2 Low >60 [facility] Comment on above: Result Comment: Calc ulations of estimated GFR are performed using the 2020 CKD-EPI Study Refit equation without the race variable for the IDMS-Traceable creatinine methods. https://jasn.asnjournals.org/content/early//ASN.08736104 88 Performed By: #### 2 4324-3 #### NEERAJ BARTON ([id number]) [facility] ([facility]) [address] [place] [address] 90672 Glucose [Mass/Vol] 101 mg/dL High 74-99 [facility] Comment on above: Performed By: #### 2 4324-3 #### NEERAJ BARTON (05501) [facility] ([facility]) [address] [place] [address] 10681 Potassium [Moles/Vol] 3.7 mmol/L Normal 3.5-5.3 [facility] Comment on above: Performed By: #### 2 4324-3 #### NEERAJ BARTON ([id number]) [facility] ([facility]) [address] [place] [address] 04436 Protein [Mass/Vol] 6.5 g/dL Normal 6.4-8.2 [facility] Comment on above: Performed By: #### 2 4324-3 #### NEERAJ BARTON ([id number]) [facility] ([facility]) [address] [place] [address] 03431 Sodium [Moles/Vol] 140 mmol/L Normal 136-145 [facility] Comment on above: Performed By: #### 2 5-3 #### NEERAJ BARTON ([id number]) [facility] ([facility]) [address] [place] [address] 14073 Urea nitrogen [Mass/Vol] 16 mg/dL Normal 6-23 [facility] Comment on above: Performed By: #### 2 4325-3 #### NEERAJ BARTON ([id number]) [facility] ([facility]) [address] [place] [address] 19902 C reactive proteinon 024 CRP [Mass/Vol] 1.82 mg/dL High <1.00 [facility] Comment on above: Performed By: #### 1 988-5 #### NEERAJ BARTON ([id number]) [facility] ([facility]) [address] [place] [address] 05924 CBC panel Auto (Bld)on 06-06 Erythrocyte distribution width (RBC) [Ratio] 13.8 % Normal 11.5-14.5 [facility] Comment on above: Performed By: #### 5 8410-2 #### NEERAJ BARTON ([id number]) [facility] ([facility]) [address] [place] [address] 82780 Hematocrit (Bld) [Volume fraction] 40.8 % Normal 36.0-46.0 [facility] Comment on above: Performed By: #### 5 8410-2 #### NEERAJ BARTON ([id number]) [facility] ([facility]) [address] [place] [address] 48207 Hemoglobin (Bld) [Mass/Vol] 13.0 g/dL Normal 12.0-16.0 [facility] Comment on above: Performed By: #### 5 8410-2 #### NEERAJ BARTON ([id number]) [facility] ([facility]) [address] [place] [address] 51170 MCH (RBC) [Entitic mass] 26.7 pg Normal 26.0-34.0 [facility] Comment on above: Performed By: #### 5 8410-2 #### NEERAJ BARTON ([id number]) [facility] ([facility]) [address] [place] [address] 40984 MCHC (RBC) [Mass/Vol] 31.9 g/dL Low 32.0-36.0 [facility] Comment on above: Performed By: #### 5 8410-2 #### NEERAJ BARTON ([id number]) [facility] ([facility]) [address] [place] [address] 26664 MCV (RBC) [Entitic vol] 84 fL Normal 80-100 [facility] Comment on above: Performed By: #### 5 8410-2 #### NEERAJ BARTON ([id number]) [facility] ([facility]) [address] [place] [address] 25555 Nucleated RBC/100 WBC (Bld) [Ratio] 0.0 /100 WBCs Normal 0.0-0.0 [facility] Comment on above: Performed By: #### 5 8410-2 #### NEERAJ BARTON ([id number]) [facility] ([facility]) [address] [place] [address] 36283 Platelets (Bld) [#/Vol] 186 x10*3/uL Normal 150-450 [facility] Comment on above: Performed By: #### 5 8410-2 #### NEERAJ BARTON ([id number]) [facility] ([facility]) [address] [place] [address] 38719 RBC (Bld) [#/Vol] 4.87 x10*6/uL Normal 4.00-5.20 [facility] Comment on above: Performed By: #### 5 8410-2 #### NEERAJ BARTON ([id number]) [facility] ([facility]) [address] [place] [address] 91110 WBC (Bld) [#/Vol] 9.2 x10*3/uL Normal 4.4-11.3 [facility] Comment on above: Performed By: #### 5 8410-2 #### NEERAJ BARTON ([id number]) [facility] ([facility]) [address] [place] [address] 85528 Comprehensive metabolic 2000 panelon 06-06-2024 Albumin BCP dye [Mass/Vol] 4.3 g/dL Normal 3.4-5.0 [facility] Comment on above: Performed By: #### 2 4323-8 #### NEERAJ BARTON ([id number]) [facility] ([facility]) [address] [place] [address] [place] [address] ALP [Catalytic activity/Vol] 45 U/L Normal 33-136 [facility] Comment on above: Performed By: #### 2 4323-8 #### NEERAJ BARTON ([id number]) [facility] ([facility]) [address] [place] [address] 35928 ALT With P-5'-P [Catalytic activity/Vol] 18 U/L Normal 7-45 [facility] Comment on above: Result Comment: Abril ents treated with Sulfasalazine may generate falsely decreased results for ALT. Performed By: #### 2 4323-8 #### NEERAJ BARTON ([id number]) [facility] ([facility]) [address] [place] [address] 61371 Anion gap [Moles/Vol] 11 mmol/L Normal 10-20 [facility] Comment on above: Performed By: #### 2 432-8 #### NEERAJ BARTON ([id number]) [facility] ([facility]) [address] [place] [address] 05183 AST With P-5'-P [Catalytic activity/Vol] 19 U/L Normal 9-39 [facility] Comment on above: Performed By: #### 2 4322-8 #### NEERAJ BARTON ([id number]) [facility] ([facility]) [address] [place] [address] 42323 Bilirubin [Mass/Vol] 0.7 mg/dL Normal 0.0-1.2 [facility] Comment on above: Performed By: #### 2 4323-8 #### NEERAJ BARTON ([id number]) [facility] ([facility]) [address] [place] [address] 37755 Calcium [Mass/Vol] 9.5 mg/dL Normal 8.6-10.3 [facility] Comment on above: Performed By: #### 2 432-8 #### NEERAJ BARTON ([id number]) [facility] ([facility]) [address] [place] [address] 20594 Chloride [Moles/Vol] 101 mmol/L Normal 98-107 [facility] Comment on above: Performed By: #### 2 4323-8 #### NEERAJ BARTON ([id number]) [facility] ([facility]) [address] [place] [address] 11585 CO2 [Moles/Vol] 30 mmol/L Normal 21-32 [facility] Comment on above: Performed By: #### 2 4323-8 #### NEERAJ BARTON ([id number]) [facility] ([facility]) [address] [place] [address] 30919 Creatinine [Mass/Vol] 1.29 mg/dL High 0.50-1.05 [facility] Comment on above: Performed By: #### 2 432-8 #### NEERAJ BARTON ([id number]) [facility] ([facility]) [address] [place] [address] 07795 Glomerular filtration rate/1.73 sq M.predicted 43 mL/min/1.73m*2 Low >60 [facility] Comment on above: Result Comment: Calc ulations of estimated GFR are performed using the 2020 CKD-EPI Study Refit equation without the race variable for the IDMS-Traceable creatinine methods. https://jasn.asnjournals.org/content//ASN.86115702 88 Performed By: #### 2 4323-8 #### NEERAJ BARTON ([id number]) [facility] ([facility]) [address] [place] [address] 59933 Glucose [Mass/Vol] 111 mg/dL High 74-99 [facility] Comment on above: Performed By: #### 2 4323-8 #### NEERAJ BARTON ([id number]) [facility] ([facility]) [address] [place] [address] 08026 Potassium [Moles/Vol] 3.9 mmol/L Normal 3.5-5.3 [facility] Comment on above: Performed By: #### 2 4323-8 #### NEERAJ BARTON ([id number]) [facility] ([facility]) [address] [place] [address] 24382 Protein [Mass/Vol] 7.0 g/dL Normal 6.4-8.2 [facility] Comment on above: Performed By: #### 2 4323-8 #### NEERAJ BARTON ([id number]) [facility] ([facility]) [address] [place] [address] Sodium [Moles/Vol] 138 mmol/L Normal 136-145 [facility] Comment on above: Performed By: #### 2 4323-8 #### NEERAJ BARTON ([id number]) [facility] ([facility]) [address] [place] [address] Urea nitrogen [Mass/Vol] 18 mg/dL Normal 6-23 [facility] Comment on above: Performed By: #### 2 4323-8 #### NEERAJ BARTON ([id number]) [facility] ([facility]) [address] [place] [address] ESR Westergren method (Bld) [Velocity]on 06-06-2024 ESR (Bld) [Velocity] 18 mm/h Normal 0-30 [facility] Comment on above: Performed By: #### 4 537-7 #### NEERAJ BARTON ([id number]) [facility] ([facility]) [address] [place] [address] Urateon 06-06-2024 Urate [Mass/Vol] 3.9 mg/dL Normal 2.3-6.7 [facility] Comment on above: Result Comment: Sylvia puncture immediately after or during the administration of Metamizole may lead to falsely low results. Testing should be performed immediately prior to Metamizole dosing. Performed By: #### 3 084-1 #### NEERAJ BARTON ([id number]) [facility] ([facility]) [address] [place] [address] XR ANKLE RIGHT 3+ VIEWSon XR ANKLE RIGHT 3+ VIEWS Interpreted By: Garry Desir, STUDY: XR ANKLE RIGHT 3+ VIEWS; ; 06/05/2024 4:34 pm INDICATION: Signs/Symptoms:LEFT ANKLE PAIN. ,M25.572 Pain in left ankle and joints of left foot COMPARISON: None. ACCESSION NUMBER(S): [id number] ORDERING CLINICIAN: ELIANA NICHOLE FINDINGS: Right ankle, three views There is an Achilles enthesophyte with thickening of the distal Achilles tendon ossifications. There is no fracture. There is no dislocation. There are no degenerative changes. The ankle mortise is maintained. There is no soft tissue abnormality seen. IMPRESSION: Achilles tendinopathy and Achilles enthesophyte formation. No acute osseous abnormality seen MACRO: None Signed by: Garry Desir 06/06/2024 5:49 PM Dictation workstation: [id number] [facility] XR FOOT RIGHT 3+ VIEWSon XR FOOT RIGHT 3+ VIEWS Interpreted By: Garry Desir, STUDY: XR FOOT RIGHT 3+ VIEWS; ; 06/05/2024 4:34 pm INDICATION: Signs/Symptoms:LEFT FOOT PAIN. ,M79.672 Pain in left foot COMPARISON: None. ACCESSION NUMBER(S): [id number] ORDERING CLINICIAN: ELIANA NICHOLE FINDINGS: Right foot, three views There is no fracture. There is no dislocation. There are no degenerative changes. There is no lytic or sclerotic lesion. There is no soft tissue abnormality seen. There is a small Achilles enthesophyte. There is thickening of the distal talus tendon with ossifications. IMPRESSION: Achilles enthesophyte with Achilles tendinopathy. No acute abnormality seen MACRO: None Signed by: Garry Desir 06/06/2024 5:47 PM Dictation workstation: [id number] [facility] Echo Complete W/ Contraston 04-24-2024 Echo Complete W/ Contrast [facility] [address] [place] [address] Echo Complete W/ Contrast 04/24/24 1258 MR#: [id number] Acct: [id number] Name: BRANDON MURO Rep #: [id number] : 1945 78 From: Kayla Steinberg MD Attending Dr: Dr. Kayla Steinberg MD Status: REG CLI Ordering Dr: Kayla Steinberg MD Date: 04/24/24 Location: [facility] Sex: F C Admitted: Reason For Study: SHORTNESS OF BREATH Procedure This was a 2D Doppler, Color Flow transthoracic echocardiogram. The study was technically difficult. Contrast injection was performed. Exam performed in department. Left Ventricle Normal size and thickness. The left ventricular ejection fraction is 60 %. Normal diastology for age. Right Ventricle Normal right ventricle. Atria The left and right atria are normal. Mitral Valve Trivial mitral valve insufficiency. Tricuspid Valve Trivial tricuspid valve insufficiency. Normal pulmonary artery pressure. Aortic Valve Mild diffuse aortic valve calcification. Moderate aortic valve stenosis. Mean peak gradient 34 mmHg. Mild aortic valve regurgitation. Pulmonic Valve The pulmonic valve is not well visualized. Great Vessels Normal sized aortic root. Pericardium/Pleural Trivial pericardial effusion. Medication 22 gauge I.V. with prn adaptor inserted into left arm. Diluted definity 2ml given slow IV push to enhance endocardial definition. MMode/2D Measurements Calculations LVIDd: 4.5 cm IVSd: 1.0 cm LVOT diam: 2.0 cm LVIDs: 2.7 cm LVPWd: 1.1 cm RVDd: 3.1 cm FS: 40.8 % LVOT area: 3.3 cm2 ___ asc Aorta Diam: 3.6 cm LAV(MOD-bp): 47.4 ml LVAd ap4: 37.8 cm2 LAV(MOD-bp) Indexed: 24.2 ml/m2 LVLd ap4: 8.7 cm LAV(MOD-sp2): 46.2 ml EDV(MOD-sp4): 133.3 ml LAV(MOD-sp4): 48.0 ml EDV(sp4-el): 139.3 ml LVAs ap4: 22.0 cm2 LVLs ap4: 7.1 cm ESV(MOD-sp4): 56.3 ml ESV(sp4-el): 57.9 ml EF(MOD-sp4): 57.8 % EF(sp4-el): 58.4 % ___ LVAd ap2: 28.9 cm2 SV(MOD-sp4): 77.0 ml SV(MOD-sp2): 54.2 ml LVLd ap2: 7.4 cm SI(MOD-sp4): 39.3 ml/m2 SI(MOD-sp2): 27.7 ml/m2 EDV(MOD-sp2): 92.6 ml EDV(sp2-el): 96.0 ml LVAs ap2: 16.9 cm2 LVLs ap2: 6.3 cm ESV(MOD-sp2): 38.4 ml ESV(sp2-el): 38.7 ml EF(MOD-sp2): 58.6 % ___ SV(sp4-el): 81.4 ml Ao sinus diam: 2.[address] Junction: 2.3 cm ___ LA dimension(2D): 3.5 cm LA A4 area: 17.7 cm2 RA A4 area: 10.3 cm2 ___ TAPSE: 2.0 cm Time Measurements MV dec time: 0.25 sec Doppler Measurements Calculations MV E max giovanni: 80.1 cm/sec Lat Peak E' Giovanni: 6.5 cm/sec Med Peak E' Giovanni: 7.8 cm/sec MV A max giovanni: 113.4 cm/sec E/E' lat: 12.2 E/E' med: 10.2 MV E/A: 0.71 ___ MV dec slope: 322.2 cm/sec2 Ao V2 max: 366.6 cm/sec AI max giovanni: 444.7 cm/sec Ao max P.8 mmHg AI max P.1 mmHg Ao V2 mean: 282.4 cm/sec AI dec slope: 290.0 cm/sec2 Ao mean P.6 mmHg AI P1/2t: 449.1 msec Ao V2 VTI: 81.1 cm AV (velocity ratio): 0.31 MONIKA(I,D): 1.0 cm2 MONIKA(V,D): 1.1 cm2 ___ LV V1 max: 120.0 cm/sec SV(LVOT): 82.0 ml PA V2 max: 121.3 cm/sec LV V1 max P.8 mmHg PA max PG (full): 1.7 mmHg LV V1 mean P.5 mmHg LV V1 mean: 91.8 cm/sec LV V1 VTI: 25.2 cm ___ TR max giovanni: 233.4 cm/sec TR max P.8 mmHg ECHO/Echo Complete W/ Contrast Interpretation Summary The left ventricular ejection fraction is 60 %. Moderate aortic valve stenosis. Mean peak gradient 34 mmHg. Mild aortic valve regurgitation Trivial pericardial effusion. The study was technically difficult. Ordering Physician: Kayla Steinberg Referring Physician: Kayla Steinberg MD Performed By: Bee Bain RDCS and Student 04/26/24947 Date Kayla Steinberg MD CC: PAO Ferrer; Dr. Kayla Steinberg MD Date Dictated: 04/24/24 1258 Date Transcribed: 04/26/24947 [employer] Supervisor: Signed Normal [facility] CNCOon 04-19-2024 CNCO Letter Text Normal [facility] CNOVon 04-19-2024 [facility] Office Visit (ALMA YAÑEZ) -- BRANDON MURO ([id number]) 1945 F Date Time Provider Department 04/19/24 11:00 AM DONELL OLIVERA During your visit today, we recorded the following information about you: Temperature Pulse Blood pressure Weight 98 degrees 85/minute 126/72 98 kg Height 1.562 m Donell Olivera, JULIO.BILINGUAL TEACHER 04/23/2024 10:31 PM Signed Subjective Brandon Muro is a 78 year [...] up recenlty Has tramadol at home Works [employer] 3 times a week at alf, [employer] PAST MEDICAL HISTORY Diagnosis Date [...] ear normal. Nose: Nose normal. Mouth/Throat: Lips: [place]. No lesions. Mouth: Mucous membranes are moist. No oral lesions. Tongue: No lesions. Pharynx: Or (more content not included)... Normal [facility] Anti-dsDNA Abon 03-29-2024 ANTI-DNA (DS)AB 1 IU/mL Normal 0-9 [facility] Comment on above: Result Comment: Nega tive <5 Equivocal 5 - 9 Positive >9 Performed at: [facility] [employer] [id number] [place] Operator: Rolf Ochoa PhD, Phone: [phone] Performed By: #### L 501.0900, L500.4050, L400.2010, L100.0100, L3100.5800, L3100.5500, L3100.5700 #### [facility] [address] [place], [place], [id number] Complement C3on 03-29-2024 COMP C3 147 mg/dL Normal 82-167 [facility] Comment on above: Result Comment: Perf ormed at: [facility] [place] [id number] [place], [place] [id number] [place] Operator: Rolf Ochoa PhD, Phone: [phone] Performed By: #### L 501.0900, L500.4050, L400.2010, L100.0100, L3100.5800, L3100.5500, L3100.5700 #### [facility] [address] [place], [place], [id number] Complement C4on 03-29-2024 COMPLEMENT, C4 27 mg/dL Normal 12-38 [facility] Comment on above: Performed By: #### L 501.0900, L500.4050, L400.2010, L100.0100, L3100.5800, L3100.5500, L3100.5700 #### [facility] [address] [place], [place], [id number] CBC W/Diff, Automatedon 10-0 Absolute Lymph 2.99 X10 3/uL Normal 0.83-4.51 [facility] Comment on above: Performed By: #### L 501.0900, L500.4050, L400.2010, L100.0100, L3100.5800, L3100.5500, L3100.5700 #### [facility] [address] [place], [address] Absolute Neut 8.8 X10 3/uL High 2.0-7.7 [facility] Comment on above: Performed By: #### L 501.0900, L500.4050, L400.2010, L100.0100, L3100.5800, L3100.5500, L3100.5700 #### [facility] [address] [place], [address] Basophils/100 WBC (Bld) 0.5 % Normal 0-1 [facility] Comment on above: Performed By: #### L 501.0900, L500.4050, L4.2010, L100.0100, L3100.5800, L3100.5500, L3100.5700 #### [facility] [address] [place], [address] Eosinophils/100 WBC (Bld) 1.7 % Normal 0-5 [facility] Comment on above: Performed By: #### L 501.0900, L500.4050, L400.2010, L100.0100, L3100.5800, L3100.5500, L3100.5700 #### [facility] [address] [place], [address] Erythrocyte distribution width (RBC) [Ratio] 14.1 % Normal 11.6-14.6 [facility] Comment on above: Performed By: #### L 501.0900, L500.4050, L400.2010, L100.0100, L3100.5800, L3100.5500, L3100.5700 #### [facility] [address] [place], [address] Hematocrit (Bld) [Volume fraction] 44.2 % Normal 37-47 [facility] Comment on above: Performed By: #### L 501.0900, L500.4050, L400.2010, L100.0100, L3100.5800, L3100.5500, L3100.5700 #### [facility] [address] [place], [address] Hemoglobin (Bld) [Mass/Vol] 13.9 g/dL Normal 12.0-15.0 [facility] Comment on above: Performed By: #### L 501.0900, L500.4050, L400.2010, L100.0100, L3100.5800, L3100.5500, L3100.5700 #### [facility] [address] [facility], [address] IG% 1.100 High 0.0-0.9 [facility] Comment on above: Result Comment: IG% - Immature Granulocytes (promyelocytes, myelocytes and metamyelocytes) > 1% indicates that a LEFT SHIFT is Present. Performed By: #### L 501.0900, L500.4050, L4.2010, L100.0100, L3100.5800, L3100.5500, L3100.5700 #### [facility] [address] [facility] [place], [address] Lymphocytes/100 WBC (Bld) 22.6 % Normal 19-41 [facility] Comment on above: Performed By: #### L 501.0900, L500.4050, L4.2010, L100.0100, L3100.5800, L3100.5500, L3100.5700 #### [facility] [address] [facility] [place], [address] MCH (RBC) [Entitic mass] 26.0 pg Low 27.0-32.0 [facility] Comment on above: Performed By: #### L 501.0900, L500.4050, L4, L100.0100, L3100.5800, L3100.5500, L3100.5700 #### [facility] [address] [place], [address] MCHC (RBC) [Mass/Vol] 31.4 g/dL Low 32-36 [facility] Comment on above: Performed By: #### L 501.0900, L500.4050, L400.2010, L100.0100, L3100.5800, L3100.5500, L3100.5700 #### [facility] [address] [place], [address] MCV (RBC) [Entitic vol] 82.6 fL Normal 81-99 [facility] Comment on above: Performed By: #### L 501.0900, L500.4050, L400.2010, L100.0100, L3100.5800, L3100.5500, L3100.5700 #### [facility] [address] [place], [address] Monocytes/100 WBC (Bld) 7.9 % Normal 0-10 [facility] Comment on above: Performed By: #### L 501.0900, L500.4050, L400.2010, L100.0100, L3100.5800, L3100.5500, L3100.5700 #### [facility] [address] [place], [address] Neutrophils/100 WBC (Bld) 66.2 % Normal 47-70 [facility] Comment on above: Performed By: #### L 501.0900, L500.4050, L400.2010, L100.0100, L3100.5800, L3100.5500, L3100.5700 #### [facility] [address] [place], [address] Nucleated RBC (Bld) [#/Vol] 0 10*3/uL Normal 0-5 [facility] Comment on above: Performed By: #### L 501.0900, L500.4050, L400.2010, L100.0100, L3100.5800, L3100.5500, L3100.5700 #### [facility] [address] [place], [address] Platelet mean volume (Bld) [Entitic vol] 12.1 fL High 6.2-12.0 [facility] Comment on above: Performed By: #### L 501.0900, L500.4050, L400.2010, L100.0100, L3100.5800, L3100.5500, L3100.5700 #### [facility] [address] [place], [address] Platelets (Bld) [#/Vol] 231 10*3/uL Normal 150-450 [facility] Comment on above: Performed By: #### L 501.0900, L500.4050, L4.2010, L100.0100, L3100.5800, L3100.5500, L3100.5700 #### [facility] [address] [place], [address] RBC (Bld) [#/Vol] 5.35 10*6/uL Normal 4.2-5.4 [facility] Comment on above: Performed By: #### L 501.0900, L500.4050, L4.2010, L100.0100, L3100.5800, L3100.5500, L3100.5700 #### [facility] [address] [place], [address] RDW SD 41.9 fl Normal 35.1-43.9 [facility] Comment on above: Performed By: #### L 501.0900, L500.4050, L400.2010, L100.0100, L3100.5800, L3100.5500, L3100.5700 #### [facility] [address] [place], [address] WBC (Bld) [#/Vol] 13.3 10*3/uL High 4.4-11.0 [facility] Comment on above: Performed By: #### L 501.0900, L500.4050, L400.2010, L100.0100, L3100.5800, L3100.5500, L3100.5700 #### [facility] [address] [place], [address] Comprehensive Metabolic Prof ilon 03-28-2024 Albumin [Mass/Vol] 4.1 g/dL Normal 3.2-5.0 [facility] Comment on above: Performed By: #### L 501.0900, L500.4050, L400.2010, L100.0100, L3100.5800, L3100.5500, L3100.5700 #### [facility] [address] [place], [address] Albumin/Globulin [Mass ratio] 1.0 {ratio} Normal 0.9-2.4 [facility] Comment on above: Performed By: #### L 501.0900, L500.4050, L400.2010, L100.0100, L3100.5800, L3100.5500, L3100.5700 #### [facility] [address] [place], [address] ALK P 83 U/L Normal 45-117 [facility] Comment on above: Performed By: #### L 501.0900, L500.4050, L400.2010, L100.0100, L3100.5800, L3100.5500, L3100.5700 #### [facility] [address] [place], [address] ALT [Catalytic activity/Vol] 21 U/L Normal 13-56 [facility] Comment on above: Performed By: #### L 501.0900, L500.4050, L400.2010, L100.0100, L3100.5800, L3100.5500, L3100.5700 #### [facility] [address] [place], [address] AST [Catalytic activity/Vol] 11 U/L Low 15-37 [facility] Comment on above: Performed By: #### L 501.0900, L500.4050, L400.2010, L100.0100, L3100.5800, L3100.5500, L3100.5700 #### [facility] [address] [place], [address] Bilirubin [Mass/Vol] 0.50 mg/dL Normal 0.20-1.00 [facility] Comment on above: Result Comment: For patients on eltrombopag therapy, use of Dimension [place] TBIL is not recommended. Performed By: #### L 501.0900, L500.4050, L400.2010, L100.0100, L3100.5800, L3100.5500, L3100.5700 #### [facility] [address] [place], [address] BUN/CRE 16.3 RATIO Normal 10-20 [facility] Comment on above: Performed By: #### L 501.0900, L500.4050, L400.2010, L100.0100, L3100.5800, L3100.5500, L3100.5700 #### [facility] [address] [place], [address] CA,Total 10.0 mg/dL Normal 8.5-10.1 [facility] Comment on above: Performed By: #### L 501.0900, L500.4050, L400.2010, L100.0100, L3100.5800, L3100.5500, L3100.5700 #### [facility] [address] [place], [address] Chloride [Moles/Vol] 104 mmol/L Normal 98-107 [facility] Comment on above: Performed By: #### L 501.0900, L500.4050, L400.2010, L100.0100, L3100.5800, L3100.5500, L3100.5700 #### [facility] [address] [place], [address] CO2 [Moles/Vol] 29.0 mmol/L Normal 21.0-32.0 [facility] Comment on above: Performed By: #### L 501.0900, L500.4050, L4.2010, L100.0100, L3100.5800, L3100.5500, L3100.5700 #### [facility] [address] [place], [address] Creatinine [Mass/Vol] 1.47 mg/dL High 0.55-1.02 [facility] Comment on above: Result Comment: The validity of the calculated GFR GFRAA in patients over 70 years has not been determined. Clinical correlation is essential. Performed By: #### L 501.0900, L500.4050, L4.2010, L100.0100, L3100.5800, L3100.5500, L3100.5700 #### [facility] [address] [place], [address] EST GFR - AA 44 mL/min Low >60 [facility] Comment on above: Result Comment: Afri can Tong[place] GFR Calc Performed By: #### L 501.0900, L500.4050, L4.2010, L100.0100, L3100.5800, L3100.5500, L3100.5700 #### [facility] [address] [place] [place], [address] GAP 7 Normal 5-15 [facility] Comment on above: Performed By: #### L 501.0900, L500.4050, L400.2010, L100.0100, L3100.5800, L3100.5500, L3100.5700 #### [facility] [address] [place], [address] GFR/1.73 sq M.predicted among non-blacks MDRD (S/P/Bld) [Vol rate/Area] 37 mL/min/{1.73_m2} Low >60 [facility] Comment on above: Result Comment: Non- GFR Calc Performed By: #### L 501.0900, L500.4050, L400.2010, L100.0100, L3100.5800, L3100.5500, L3100.5700 #### [facility] [address] [place], [address] Globulin (S) [Mass/Vol] 4.0 g/dL Normal 2.2-4.2 [facility] Comment on above: Performed By: #### L 501.0900, L500.4050, L400.2010, L100.0100, L3100.5800, L3100.5500, L3100.5700 #### [facility] [address] [place], [address] Glucose [Mass/Vol] 76 mg/dL Normal 74-106 [facility] Comment on above: Performed By: #### L 501.0900, L500.4050, L400.2010, L100.0100, L3100.5800, L3100.5500, L3100.5700 #### [facility] [address] [place], [address] Potassium [Moles/Vol] 3.4 mmol/L Low 3.5-5.1 [facility] Comment on above: Performed By: #### L 501.0900, L500.4050, L400.2010, L100.0100, L3100.5800, L3100.5500, L3100.5700 #### [facility] [address] [place], [address] Sodium [Moles/Vol] 141 mmol/L Normal 136-145 [facility] Comment on above: Performed By: #### L 501.0900, L500.4050, L400.2011, L100.0100, L3100.5800, L3100.5500, L3100.5700 #### [facility] [address] [place], [address] T PROT 8.1 g/dL Normal 6.4-8.2 [facility] Comment on above: Performed By: #### L 501.0900, L500.4050, L400.2010, L100.0100, L3100.5800, L3100.5500, L3100.5700 #### [facility] [address] [place], [address] Urea nitrogen [Mass/Vol] 24 mg/dL High 7-18 [facility] Comment on above: Performed By: #### L 501.0900, L500.4050, L400.2010, L100.0100, L3100.5800, L3100.5500, L3100.5700 #### [facility] [address] [place], [address] Protein+Creatinine Ratio,Uri neon 03-28-2024 PROT:CRE RATIO 181 mg/g CRE Normal 0-200 [facility] Comment on above: Performed By: #### L 501.0900, L500.4050, L400.2010, L100.0100, L3100.5800, L3100.5500, L3100.5700 #### [facility] [address] [place], [address] Protein (U) [Mass/Vol] 27.3 mg/dL High <11.9 [facility] Comment on above: Performed By: #### L 501.0900, L500.4050, L400.2010, L100.0100, L3100.5800, L3100.5500, L3100.5700 #### [facility] [address] [place], [address] UR CREAT 151.00 mg/dL Normal NO RANGE EST. [facility] Comment on above: Performed By: #### L 501.0900, L500.4050, L400.2011, L100.0100, L3100.5800, L3100.5500, L3100.5700 #### [facility] [address] [place], [address] Urinalysis, Routine (Dipstic k)on 03-28-2024 BILIRUBIN URINE Negative Normal Negative [facility] Comment on above: Order Comment: CLEAN CATCH Performed By: #### L 501.0900, L500.4050, L400.2010, L100.0100, L3100.5800, L3100.5500, L3100.5700 #### [facility] [address] [place], [address] Clarity (U) Sl. Cloudy Normal Clear [facility] Comment on above: Order Comment: CLEAN CATCH Performed By: #### L 501.0900, L500.4050, L400.2010, L100.0100, L3100.5800, L3100.5500, L3100.5700 #### [facility] [address] [place], [address] Color (U) Yellow Normal Yellow [facility] Comment on above: Order Comment: CLEAN CATCH Performed By: #### L 501.0900, L500.4050, L400.2010, L100.0100, L3100.5800, L3100.5500, L3100.5700 #### [facility] [address] [place], [address] GLUCOSE, UR Normal Normal Normal [facility] Comment on above: Order Comment: CLEAN CATCH Performed By: #### L 501.0900, L500.4050, L400.2010, L100.0100, L3100.5800, L3100.5500, L3100.5700 #### [facility] [address] [place], [address] KETONE UR Negative Normal Negative [facility] Comment on above: Order Comment: CLEAN CATCH Performed By: #### L 501.0900, L500.4050, L400.2010, L100.0100, L3100.5800, L3100.5500, L3100.5700 #### [facility] [address] [place], [address] LEUK ESTERASE Negative Normal Negative [facility] Comment on above: Order Comment: CLEAN CATCH Performed By: #### L 501.0900, L500.4050, L400.2010, L100.0100, L3100.5800, L3100.5500, L3100.5700 #### [facility] [address] [place], [address] Nitrite Ql (U) Negative Normal Negative [facility] Comment on above: Order Comment: CLEAN CATCH Performed By: #### L 501.0900, L500.4050, L4.2010, L100.0100, L3100.5800, L3100.5500, L3100.5700 #### [facility] [address] [place], [place], [address] OCCULT BLOOD-UR Negative Normal Negative [facility] Comment on above: Order Comment: CLEAN CATCH Performed By: #### L 501.0900, L500.4050, L400.2010, L100.0100, L3100.5800, L3100.5500, L3100.5700 #### [facility] [address] [place], [address] pH UR 6.0 Normal 5.0 - 8.0 [facility] Comment on above: Order Comment: CLEAN CATCH Performed By: #### L 501.0900, L500.4050, L400.2010, L100.0100, L3100.5800, L3100.5500, L3100.5700 #### [facility] [address] [place], [address] PROT DIPSTX 15 mg/dl Abnormal Negative [facility] Comment on above: Order Comment: CLEAN CATCH Performed By: #### L 501.0900, L500.4050, L400.2011, L100.0100, L3100.5800, L3100.5500, L3100.5700 #### [facility] [address] [place], [address] SP.GR. DIPSTX 1.020 Normal 1.002-1.030 [facility] Comment on above: Order Comment: CLEAN CATCH Performed By: #### L 501.0900, L500.4050, L400.2011, L100.0100, L3100.5800, L3100.5500, L3100.5700 #### [facility] [address] [place], [address] UROBILI Normal Normal Normal [facility] Comment on above: Order Comment: CLEAN CATCH Performed By: #### L 501.0900, L500.4050, L400.2010, L100.0100, L3100.5800, L3100.5500, L3100.5700 #### [facility] [address] [place], [address] Cardiology Visit Reporton Cardiology Visit Report [facility] [address] [place] [address] OFFICE VISIT Date of Service: 03/23/24 MR#: [id number] Acct: [id number] Name: BRANDON MURO Rep #: [id number] : 1945 Provider: Dr. Kayla Steinberg MD Age/Sex: 78/F Location: [facility] [place] Status: Signed [facility] History of Present Illness Details: This lady is here for follow-up visit. According to her, she has been having a lupus flareup. Per her, her joints have been aching. Denies any chest pains or shortness of breath. No palpitations. No orthopnea or PND. No ankle edema. Per patient, she has had her lipid profile checked this last December and according to her, her cholesterol was off the charts. Intake Vital Signs 08/25/23 09:14 03/23/24 08:35 Height 5 ft 2 in 5 ft 2 in Weight: 214 lb 212 lb BMI 39.1 38.7 BP 124/76 H 130/91 H Blood Pressure Location Lt brachial Lt brachial Position Sitting Sitting Respiration 18 16 Pulse 79 73 Pulse Source NIBP NIBP Intake Visit Reasons: 8 M FU Cardroom Hand Required: No Accompanied by: Friend Is patient in pain?: Yes (Yes, chronic Lupus and Fibromyalgia per pt) Allergies mold Allergy (Intermediate, Verified 03/23/24 13:45) Other adhesive tape Allergy (Verified 03/23/24 13:45) Rash celecoxib (From Celebrex) Adverse Reaction (Verified 03/23/24 13:45) Other hydrocodone (From Vicodin) Adverse Reaction (Verified 03/23/24 13:45) Vomiting pitavastatin (From Livalo) Adverse Reaction (Verified 03/23/24 13:45) Other Sulfa (Sulfonamide Antibiotics) Adverse Reaction (Verified 03/23/24 13:45) Other Medications ???Medication ???Instructions ???Recorded ???Confirmed ???Type amlodipine 5 mg tablet 5 mg PO DAILY 12/02/16 03/23/24 History cetirizine 10 mg tablet (All Day 10 mg PO DAILY 12/30/22 03/23/24 History Allergy (cetirizine)) hydrochlorothiazide 12.5 mg tablet 12.5 mg PO DAILY 12/30/22 03/23/24 History losartan 100 mg tablet 100 mg PO DAILY 12/30/22 03/23/24 History omeprazole 40 mg capsule,delayed 40 mg PO DAILY 12/30/22 03/23/24 History release venlafaxine 75 mg tablet 75 mg PO BID 12/30/22 03/23/24 History aspirin 81 mg tablet,delayed 81 mg PO DAILY 01/05/23 03/23/24 History release acetaminophen 500 mg tablet 500 mg PO Q8H PRN PRN Pain 03/23/24 History hydroxychloroquine 200 mg tablet 200 mg PO BID 03/23/24 03/23/24 History prednisone 10 mg tablet 10 mg PO QDAY 03/23/24 03/23/24 History tramadol 50 mg tablet 50 mg PO TID PRN 03/23/24 03/23/24 History Ejection fraction %: 55 Have you fallen in the past year?: No PFSH Medical History Allergic rhinitis Anxiety and depression Aortic stenosis Carotid artery disease DJD (degenerative joint disease) Environmental allergies Essential hypertension GERD (gastroesophageal reflux disease) Glaucoma Hearing loss Hypertension Left carotid bruit Lupus Nonrheumatic aortic (valve) stenosis Stage 3 chronic kidney disease Vitamin D deficiency Surgical History History of 2 sections History of right hip replacement History of total bilateral knee replacement (TKR) Hx of appendectomy Hx of bilateral cataract extraction ( 2019) Hx of cardiac catheterization ( 1999) Hx of cholecystectomy Hx of lumpectomy Hx of repair of right rotator cuff Family History Mother Hypertension Cancer skin Diabetes Dementia Father Hypertension Cancer skin COPD (chronic obstructive pulmonary disease) Heart disease Dementia Sister Diabetes Hypertension Brother Hypertension Social History Smoking Status: Former smoker how long ago did patient quit smokin alcohol intake: current alcohol intake frequency: a few times a month substance use type: does not use caffeine: Yes Type: carbonated beverages ROS Const Const: Positive for fatigue (secondary to chronic conditions) and weakness (secondary to chronic conditions); Negative for headache(s) or weight gain ENT ENT: Positive for balance problems (secondary to joint pain); Negative for headache(s), dizziness or Nosebleed/epistaxis Cardio Chest Pain: No Palpitations: No Edema: None Muscle aches with walking: None Resp Respiratory: Positive for SOB with activity; Negative for SOB at rest or SOB orthopnea SOB lying down GI GI: Positive for vomiting (very seldom; once every 3-4mo per pt); Negative nausea or heartburn Musc Musc: Positive for muscle aches/ myalgia (secondary to chronic conditions), muscle weakness (secondary to chronic conditions per pt), joint pain (Right hip, secondary to chronic conditions) a (more content not included)... Normal [facility] CNOVon 02-22-2024 CNOV Office Visit (SHARA MCCABE) -- BRANDON MURO ([id number]) 1945 F Date Time Provider Department 02/22/24 8:00 AM PILAR FERRER During your visit today, we recorded the following information about you: Pulse Respiration Blood pressure Weight 76/minute 16/minute 120/72 96.2 kg Height 1.562 m Pilar Ferrer, RESOURCE CONSERVATION MANAGER.BILINGUAL TEACHER 02/22/2024 8:46 AM Signed This note was created using Medlertriter. Subjective Brandon Muro is a 78 year [...] HISTORY 1965: ANESTH, SECTION No date: APPENDECTOMY 2010: ARTHRP ACETBLR/PROX FEM PROSTC AGRFT/ALGRFT 11/27/2019: CATARACT [...] cough, sh (more content not included)... Normal [facility] CBC W Auto Differential pane l (Bld)on 01-06-2024 Basophils (Bld) [#/Vol] 0.07 x10*3/uL Normal 0.00-0.10 [facility] Comment on above: Performed By: #### 5 7021-8 #### NEERAJ BARTON ([id number]) [facility] ([facility]) [address] [place] [address] Basophils/100 WBC (Bld) 1.1 % Normal 0.0-2.0 [facility] Comment on above: Performed By: #### 5 7021-8 #### NEERAJ BARTON ([id number]) [facility] ([facility]) [address] [place] [address] Eosinophils (Bld) [#/Vol] 0.46 x10*3/uL High 0.00-0.40 [facility] Comment on above: Performed By: #### 5 7021-8 #### NEERAJ BARTON ([id number]) [facility] ([facility]) [address] [place] [address] 87348 Eosinophils/100 WBC (Bld) 7.0 % Normal 0.0-6.0 [facility] Comment on above: Performed By: #### 5 7021-8 #### NEERAJ BARTON ([id number]) [facility] ([facility]) [address] [place] [address] 08664 Erythrocyte distribution width (RBC) [Ratio] 14.3 % Normal 11.5-14.5 [facility] Comment on above: Performed By: #### 5 7021-8 #### NEERAJ BARTON ([id number]) [facility] ([facility]) [address] [place] [address] 18876 Hematocrit (Bld) [Volume fraction] 42.6 % Normal 36.0-46.0 [facility] Comment on above: Performed By: #### 5 7021-8 #### NEERAJ BARTON ([id number]) [facility] ([facility]) [address] [place] [address] 36639 Hemoglobin (Bld) [Mass/Vol] 13.2 g/dL Normal 12.0-16.0 [facility] Comment on above: Performed By: #### 5 7021-8 #### NEERAJ BARTON ([id number]) [facility] ([facility]) [address] [place] [address] 72768 Immature granulocytes (Bld) [#/Vol] 0.02 x10*3/uL Normal 0.00-0.50 [facility] Comment on above: Performed By: #### 5 7021-8 #### NEERAJ BARTON ([id number]) [facility] ([facility]) [address] [place] [address] 07868 Immature granulocytes/100 WBC (Bld) 0.3 % Normal 0.0-0.9 [facility] Comment on above: Result Comment: Jeannie ture Granulocyte Count (IG) includes promyelocytes, myelocytes and metamyelocytes but does not include bands. Percent differential counts (%) should be interpreted in the context of the absolute cell counts (cells/UL). Performed By: #### 5 7021-8 #### NEERAJ BARTON ([id number]) [facility] ([facility]) [address] [place] [address] 22797 Lymphocytes (Bld) [#/Vol] 2.24 x10*3/uL Normal 0.80-3.00 [facility] Comment on above: Performed By: #### 5 7021-8 #### NEERAJ BARTON ([id number]) [facility] ([facility]) [address] [place] [address] 96634 Lymphocytes/100 WBC (Bld) 34.0 % Normal 13.0-44.0 [facility] Comment on above: Performed By: #### 5 7021-8 #### NEERAJ BARTON ([id number]) [facility] ([facility]) [address] [place] [address] 80832 MCH (RBC) [Entitic mass] 26.3 pg Normal 26.0-34.0 [facility] Comment on above: Performed By: #### 5 7021-8 #### NEERAJ BARTON ([id number]) [facility] ([facility]) [address] [place] [address] 64024 MCHC (RBC) [Mass/Vol] 31.0 g/dL Low 32.0-36.0 [facility] Comment on above: Performed By: #### 5 7021-8 #### NEERAJ BARTON ([id number]) [facility] ([facility]) [address] [place] [address] 45518 MCV (RBC) [Entitic vol] 85 fL Normal 80-100 [facility] Comment on above: Performed By: #### 5 7021-8 #### NEERAJ BARTON ([id number]) [facility] ([facility]) [address] [place] [address] 51150 Monocytes (Bld) [#/Vol] 0.51 x10*3/uL Normal 0.05-0.80 [facility] Comment on above: Performed By: #### 5 7021-8 #### NEERAJ BARTON ([id number]) [facility] ([facility]) [address] [place] [address] 28920 Monocytes/100 WBC (Bld) 7.8 % Normal 2.0-10.0 [facility] Comment on above: Performed By: #### 5 7021-8 #### NEERAJ BARTON ([id number]) [facility] ([facility]) [address] [place] [address] 67498 Neutrophils (Bld) [#/Vol] 3.28 x10*3/uL Normal 1.60-5.50 [facility] Comment on above: Result Comment: Perc ent differential counts (%) should be interpreted in the context of the absolute cell counts (cells/uL). Performed By: #### 5 7021-8 #### NEERAJ BARTON ([id number]) [facility] ([facility]) [address] [place] [address] 10071 Neutrophils/100 WBC (Bld) 49.8 % Normal 40.0-80.0 [facility] Comment on above: Performed By: #### 5 7021-8 #### NEERAJ BARTON ([id number]) [facility] ([facility]) [address] [place] [address] 52143 Nucleated RBC/100 WBC (Bld) [Ratio] 0.0 /100 WBCs Normal 0.0-0.0 [facility] Comment on above: Performed By: #### 5 7021-8 #### NEERAJ BARTON ([id number]) [facility] ([facility]) [address] [place] [address] 50421 Platelets (Bld) [#/Vol] 209 x10*3/uL Normal 150-450 [facility] Comment on above: Performed By: #### 5 7021-8 #### NEERAJ BARTON ([id number]) [facility] ([facility]) [address] [place] [address] 32938 RBC (Bld) [#/Vol] 5.01 x10*6/uL Normal 4.00-5.20 [facility] Comment on above: Performed By: #### 5 7021-8 #### NEERAJ BARTON ([id number]) [facility] ([facility]) [address] [place] [address] 18640 WBC (Bld) [#/Vol] 6.6 x10*3/uL Normal 4.4-11.3 [facility] Comment on above: Performed By: #### 5 7021-8 #### NEERAJ BARTON ([id number]) [facility] ([facility]) [address] [place] [address] 17454 Comprehensive metabolic 2000 panelon 01-06-2024 Albumin BCP dye [Mass/Vol] 4.3 g/dL Normal 3.4-5.0 [facility] Comment on above: Performed By: #### 2 4322-8 #### NEERAJ BARTON ([id number]) [facility] ([facility]) [address] [place] [address] ALP [Catalytic activity/Vol] 63 U/L Normal 33-136 [facility] Comment on above: Performed By: #### 2 432-8 #### NEERAJ BARTON ([id number]) [facility] ([facility]) [address] [place] [address] ALT With P-5'-P [Catalytic activity/Vol] 18 U/L Normal 7-45 [facility] Comment on above: Result Comment: Abril ents treated with Sulfasalazine may generate falsely decreased results for ALT. Performed By: #### 2 4322-8 #### NEERAJ BARTON ([id number]) [facility] ([facility]) [address] [place] [address] Anion gap [Moles/Vol] 11 mmol/L Normal 10-20 [facility] Comment on above: Performed By: #### 2 4322-8 #### NEERAJ BARTON ([id number]) [facility] ([facility]) [address] [place] [address] AST With P-5'-P [Catalytic activity/Vol] 22 U/L Normal 9-39 [facility] Comment on above: Performed By: #### 2 4322-8 #### NEERAJ BARTON ([id number]) [facility] ([facility]) [address] [place] [address] Bilirubin [Mass/Vol] 0.5 mg/dL Normal 0.0-1.2 [facility] Comment on above: Performed By: #### 2 4322-8 #### NEERAJ BARTON ([id number]) [facility] ([facility]) [address] [place] [address] 62016 Calcium [Mass/Vol] 9.6 mg/dL Normal 8.6-10.3 [facility] Comment on above: Performed By: #### 2 3-8 #### NEERAJ BARTON ([id number]) [facility] ([facility]) [address] [place] [address] 08179 Chloride [Moles/Vol] 102 mmol/L Normal 98-107 [facility] Comment on above: Performed By: #### 2 4323-8 #### NEERAJ BARTON ([id number]) [facility] ([facility]) [address] [place] [address] 63869 CO2 [Moles/Vol] 30 mmol/L Normal 21-32 [facility] Comment on above: Performed By: #### 2 4323-8 #### NEERAJ BARTON ([id number]) [facility] ([facility]) [address] [place] [address] 56315 Creatinine [Mass/Vol] 1.17 mg/dL High 0.50-1.05 [facility] Comment on above: Performed By: #### 2 4323-8 #### NEERAJ BARTON ([id number]) [facility] ([facility]) [address] [place] [address] 82105 Glomerular filtration rate/1.73 sq M.predicted 48 mL/min/1.73m*2 Low >60 [facility] Comment on above: Result Comment: Calc ulations of estimated GFR are performed using the 2020 CKD-EPI Study Refit equation without the race variable for the IDMS-Traceable creatinine methods. https://jasn.asnjournals.org/content/early//ASN.59718895 88 Performed By: #### 2 4323-8 #### NEERAJ BARTON ([id number]) [facility] ([facility]) [address] [place] [address] 69225 Glucose [Mass/Vol] 107 mg/dL High 74-99 [facility] Comment on above: Performed By: #### 2 4323-8 #### NEERAJ BARTON ([id number]) [facility] ([facility]) [address] [place] [address] 02174 Potassium [Moles/Vol] 3.9 mmol/L Normal 3.5-5.3 [facility] Comment on above: Performed By: #### 2 4323-8 #### NEERAJ BARTON ([id number]) [facility] ([facility]) [address] [place] [address] 26002 Protein [Mass/Vol] 6.9 g/dL Normal 6.4-8.2 [facility] Comment on above: Performed By: #### 2 4323-8 #### NEERAJ BARTON ([id number]) [facility] ([facility]) [address] [place] [address] 70959 Sodium [Moles/Vol] 139 mmol/L Normal 136-145 [facility] Comment on above: Performed By: #### 2 4323-8 #### NEERAJ BARTON ([id number]) [facility] ([facility]) [address] [place] [address] 82102 Urea nitrogen [Mass/Vol] 20 mg/dL Normal 6-23 [facility] Comment on above: Performed By: #### 2 4323-8 #### NEERAJ BARTON ([id number]) [facility] ([facility]) [address] [place] [address] 07587 Bacteria identifiedon 2023 Bacteria identified Cx Nom (U) Test: Urine culture Specimen Source: Clean Catch/Voided Specimen Type: Urine Specimen Date: 12/16/2023 161 Result Date: 12/18/20231526 Result Status: Final result Abnormal: No Resulting Lab: [facility] [address] [place], [place] [id number] CULTURE No significant growth Normal [facility] Comment on above: Performed By: #### 6 30-4 #### TANIYA Wolfe ([id number]) [facility] ([facility]) [address] [place], [place] [id number] 25-hydroxyvitamin D3 [Mass/V ol]on 11-30-2023 Interpretation and review of laboratory results Normal [facility] CBC panel Auto (Bld)on 11-29 Erythrocyte distribution width (RBC) [Ratio] 13.9 % 11.5 - 15.0 % [facility] Hematocrit (Bld) [Volume fraction] 42.6 % 36.0 - 46.0 % [facility] Hemoglobin (Bld) [Mass/Vol] 13.5 g/dL 11.5 - 15.5 g/dL [facility] Interpretation and review of laboratory results Normal [facility] MCH (RBC) [Entitic mass] 26.7 pg 26.0 - 34.0 pg [facility] MCHC (RBC) [Mass/Vol] 31.7 g/dL 30.5 - 36.0 g/dL [facility] MCV (RBC) [Entitic vol] 84.4 fL 80.0 - 100.0 fL [facility] Platelet mean volume (Bld) [Entitic vol] 12.0 fL 9.0 - 12.7 fL [facility] Platelets (Bld) [#/Vol] 212 10*3/uL [facility] RBC (Bld) [#/Vol] 5.05 10*6/uL 3.90 - 5.2 0 m/uL [facility] WBC (Bld) [#/Vol] 7.39 10*3/uL [facility] Comprehensive metabolic 2000 panelon 11-30-2023 Albumin [Mass/Vol] 4.5 g/dL 3.9 - 4.9 g/dL [facility] ALP [Catalytic activity/Vol] 80 U/L 34 - 123 U/L [facility] ALT With P-5'-P [Catalytic activity/Vol] 16 U/L 7 - 38 U/L [facility] Anion gap [Moles/Vol] 12 mmol/L 8 - 15 mmol/L [facility] AST With P-5'-P [Catalytic activity/Vol] 21 U/L 13 - 35 U/L [facility] Bilirubin [Mass/Vol] 0.3 mg/dL 0.2 - 1.3 mg/dL [facility] Calcium [Mass/Vol] 9.9 mg/dL 8.5 - 10. 2 mg/dL [facility] Chloride [Moles/Vol] 102 mmol/L 98 - 107 mmol/L [facility] CO2 [Moles/Vol] 26 mmol/L 22 - 30 mmol/L [facility] Creatinine [Mass/Vol] 1.29 mg/dL High 0.58 - 0.96 mg/dL [facility] GFR/1.73 sq M.predicted among non-blacks MDRD (S/P/Bld) [Vol rate/Area] 43 mL/min/{1.73_m2} Low - PINF [facility] Comment on above: Estimated Glomerular Filtration [...] 116 mg/dL High 74 - 99 mg/dL [facility] Comment on above: The [place] Diabete s Association (ADA) provides guidance for [...] Standards of Medical Care in Diabetes 2016, [place] Diabetes [employer]. Diabetes Care. 2016.39(Suppl 1). Potassium [Moles/Vol] 4.1 mmol/L 3.7 - 5.1 mmol/L [facility] Protein [Mass/Vol] 7.8 g/dL 6.3 - 8.0 g/dL [facility] Sodium [Moles/Vol] 140 mmol/L 136 - 144 mmol/L [facility] Urea nitrogen [Mass/Vol] 20 mg/dL 7 - 21 mg/dL [facility] Lipid 1996 panelon 4 Cholesterol [Mass/Vol] 211 mg/dL High NINF - 200 mg/dL [facility] Comment on above: <200 mg/dL, Desirabl e 200-239 mg/dL, Borderline high >239 mg/dL, High Cholesterol in HDL [Mass/Vol] 75 mg/dL 39 - PINF mg/dL [facility] Comment on above: 40-59 mg/dL, Accepta ble >59 mg/dL, High: Negative risk factor for coronary heart disease <40 mg/dL, Low: Positive risk factor for coronary heart disease Cholesterol in LDL [Mass/Vol] 121 mg/dL High NINF - 100 mg/dL [facility] Comment on above: <100 mg/dL, Optimal 100-129 mg/dL, Near optimal/above optimal 130-159 mg/dL, Borderline high 160-189 mg/dL, High >189 mg/dL, Very high Secondary prevention optimal LDL Cholesterol levels are recommended to be < 70 mg/dL Cholesterol in LDL/Cholesterol in HDL [Mass ratio] 1.61 {ratio} NINF - 2.54 [facility] Comment on above: Reference: 1. National Cholesterol Education Program ATP III Guideline At-A-Glance Quick Desk Reference: National Heart, Lung, and Blood [place]. National Institutes of Health. 2001: NIH Publication No. 01-3305. 2. An International Atherosclerosis Society position paper: global recommendations for the management of dyslipidemia: executive summary, Atherosclerosis. 2014: 232(2):410-413. Cholesterol in VLDL [Mass/Vol] 15 mg/dL NINF - 30 mg/dL [facility] Cholesterol non HDL [Mass/Vol] 136 mg/dL High NINF - 130 mg/dL [facility] Comment on above: <130 mg/dL, Optimal 130-159 mg/dL, Near optimal/above optimal 160-189 mg/dL, Borderline high 190-219 mg/dL, High >219 mg/dL, Very high Secondary prevention optimal non HDL Cholesterol levels are recommended to be <100 mg/dL Cholesterol.total/C holesterol in HDL [Mass ratio] 2.81 {ratio} NINF - 5.10 [facility] Fasting Time 12 hrs [facility] Triglyceride [Mass/Vol] 77 mg/dL NINF - 150 mg/dL [facility] Comment on above: <150 mg/dL, Normal 150-199 mg/dL, Borderline high 200-499 mg/dL, High >499 mg/dL, Very high No Panel Informationon 11-29 Interpretation and review of laboratory results Abnormal [facility] THYROID STIMULATING HORMONEo n 11-30-2023 TSH Qn 3.830 m[IU]/L [facility] TSH Qnon 11-30-2023 Interpretation and review of laboratory results Normal [facility] VITAMIN D 25 HYDROXYon 11-29 25-hydroxyvitamin D3 [Mass/Vol] 34.2 ng/mL 30.0 - PINF ng/mL [facility] Comment on above: Classification of 25 [place] Vitamin D status: Deficiency: <= 20.0 ng/ml. Insufficiency: 21.0-29.0 ng/ml. Sufficiency: >= 30.0 ng/ml. Hepatic function 2000 panelo n 08-26-2023 Albumin BCP dye [Mass/Vol] 4.0 g/dL Normal 3.4-5.0 [facility] Comment on above: Performed By: #### 2 4325-3 #### NEERAJ BARTON ([id number]) [facility] ([facility]) [address] [place] [address] 11454 ALP [Catalytic activity/Vol] 67 U/L Normal 33-136 [facility] Comment on above: Performed By: #### 2 5-3 #### NEERAJ BARTON ([id number]) [facility] ([facility]) [address] [place] [address] 46270 ALT With P-5'-P [Catalytic activity/Vol] 18 U/L Normal 7-45 [facility] Comment on above: Result Comment: Abril ents treated with Sulfasalazine may generate falsely decreased results for ALT. Performed By: #### 2 5-3 #### NEERAJ BARTON ([id number]) [facility] ([facility]) [address] [place] [address] 88049 AST With P-5'-P [Catalytic activity/Vol] 18 U/L Normal 9-39 [facility] Comment on above: Performed By: #### 2 5-3 #### NEERAJ BARTON ([id number]) [facility] ([facility]) [address] [place] [address] 07710 Bilirubin [Mass/Vol] 0.4 mg/dL Normal 0.0-1.2 [facility] Comment on above: Performed By: #### 2 5-3 #### NEERAJ BARTON ([id number]) [facility] ([facility]) [address] [place] [address]011 Bilirubin.direct [Mass/Vol] 0.1 mg/dL Normal 0.0-0.3 [facility] Comment on above: Performed By: #### 2 5-3 #### NEERAJ BARTON ([id number]) [facility] ([facility]) [place] [address] Protein [Mass/Vol] 6.8 g/dL Normal 6.4-8.2 [facility] Comment on above: Performed By: #### 2 4325-3 #### NEERAJ BARTON ([id number]) [facility] ([facility]) [address] [place] [address] 75653 Lipid 1996 panelon 4 Cholesterol [Mass/Vol] 201 mg/dL High 0-199 [facility] Comment on above: Result Comment: [...] By: #### 2 4331-1 #### NEERAJ BARTON ([id number]) [facility] ([facility]) [address] [place] [address] 36598 Cholesterol in HDL [Mass/Vol] 65.0 mg/dL Normal [facility] Comment on above: Result Comment: Age Very Low Low Normal High 0-19 Y < 35 < 40 40-45 ---- 20-24 Y ---- < 40 >45 ---- >24 Y ---- < 40 40-60 >60 Performed By: #### 2 4331-1 #### NEERAJ BARTON ([id number]) [facility] ([facility]) [address] [place] [address] 17477 Cholesterol in LDL [Mass/Vol] 118 mg/dL High <=99 [facility] Comment on above: Result Comment: Near Borderline AGE Desirable Optimal High High Very High 0-19 Y 0 - 109 --- 110-129 >/= 130 ---- 20-24 Y 0 - 119 --- 120-159 >/= 160 ---- >24 Y 0 - 99 100-129 130-159 160-189 >/=190 Performed By: #### 2 4331-1 #### NEERAJ BARTON ([id number]) [facility] ([facility]) [address] [place] [address] 70935 Cholesterol in VLDL [Mass/Vol] 18 mg/dL Normal 0-40 [facility] Comment on above: Performed By: #### 2 4331-1 #### NEERAJ BARTON ([id number]) [facility] ([facility]) [address] [place] [address] 31889 CHOLESTEROL/HDL RATIO 3.1 Normal [facility] Comment on above: Result Comment: Ref Values Desirable < 3.4 High Risk > 5.0 Performed By: #### 2 4331-1 #### NEERAJ BARTON ([id number]) [facility] ([facility]) [address] [place] [address] 10628 NON HDL CHOLESTEROL 136 mg/dL Normal 0-149 [facility] Comment on above: Result Comment: Age Desirable Borderline High High Very High 0-19 Y 0 - 119 120 - 144 >/= 145 >/= 160 20-24 Y 0 - 149 150 - 189 >/= 190 ---- >24 Y 30 mg/dL above LDL Cholesterol goal Performed By: #### 2 4331-1 #### NEERAJ BARTON ([id number]) [facility] ([facility]) [address] [place] [address] 58089 Triglyceride [Mass/Vol] 90 mg/dL Normal 0-149 [facility] Comment on above: Result Comment: [...] By: #### 2 4331-1 #### PICKARD MICK ([id number]) [facility] ([facility]) [address] [place] [address] 29351 BMP - EXTERNALon 03-09-2023 Anion gap [Moles/Vol] 10 mmol/L [facility] Calcium [Mass/Vol] 9.4 mg/dL 8.8 - 10. 5 MG/DL [facility] Chloride [Moles/Vol] 103 mmol/L 98 - 107 MEQ/L [facility] Creatinine [Mass/Vol] 1.0 mg/dL 0.6 - 1.3 MG/DL [facility] GFR AFR AMER 59 mL/MIN [facility] GFR/1.73 sq M.predicted among non-blacks MDRD (S/P/Bld) [Vol rate/Area] 59 mL/min/{1.73_m2} [facility] Glucose [Mass/Vol] 110 mg/dL Abnormal 74 - 99 MG/DL [facility] HCO3 (Bld) [Moles/Vol] 30 mmol/L [facility] Potassium [Moles/Vol] 3.9 mmol/L 3.5 - 5.1 MEQ/L [facility] Sodium [Moles/Vol] 139 mmol/L 136 - 145 MEQ/L [facility] Urea nitrogen [Mass/Vol] 21 mg/dL 6 - 23 mg/dL [facility] TSH BLDon 03-09-2023 TSH Qn 3.97 m[IU]/L 0.44 - 3.98 [facility] BASIC METABOLIC PANELon Anion gap [Moles/Vol] 10 mmol/L [facility] Comment on above: Performed By: #### T SH2 #### [address] [address] Calcium [Mass/Vol] 9.4 mg/dL [facility] Comment on above: Performed By: #### T SH2 #### [address] [address] Chloride [Moles/Vol] 103 mmol/L [facility] Comment on above: Performed By: #### T SH2 #### [address] [address] Creatinine [Mass/Vol] 1.00 mg/dL Normal 0.50 - 1.05 [facility] Comment on above: Performed By: #### T SH2 #### [address] [address] GFR/1.73 sq M.predicted among non-blacks MDRD (S/P/Bld) [Vol rate/Area] 59 mL/min/{1.73_m2} Abnormal >90 [facility] Comment on above: Result Comment: CALC ULATIONS OF ESTIMATED GFR ARE PERFORMED USING THE 2020 CKD-EPI STUDY REFIT EQUATION WITHOUT THE RACE VARIABLE FOR THE IDMS-TRACEABLE CREATININE METHODS. https://jasn.asnjournals.org/content/early/ASN.49285406 88 Performed By: #### T SH2 #### [address] [address] Glucose [Mass/Vol] 110 mg/dL High 74 - 99 [facility] Comment on above: Performed By: #### T SH2 #### [address] [address] HCO3 (Bld) [Moles/Vol] 30 mmol/L Normal 21 - 32 [facility] Comment on above: Performed By: #### T SH2 #### [address] [address] Potassium [Moles/Vol] 3.9 mmol/L [facility] Comment on above: Performed By: #### T SH2 #### [address] [address] Sodium [Moles/Vol] 139 mmol/L [facility] Comment on above: Performed By: #### T SH2 #### [address] [address] Urea nitrogen [Mass/Vol] 21 mg/dL [facility] Comment on above: Performed By: #### T SH2 #### [address] [address] BMP EXTERNAL QAIon 3 CO2 [Moles/Vol] 30 mmol/L [facility] Creatinine per volume 1.00 [facility] Est GFR Non- 59 Abnormal [facility] THYROXINE,FREEon 03-04-2023 THYROXINE,FREE 0.80 ng/dL Normal 0.61 - 1.12 [facility] Comment on above: Result Comment: Thyr oxine Free testing is performed using different testing methodology at [facility] than at other [facility]. Direct result comparisons should only be made [...] draw. Performed By: #### T 4FRE #### [place] [id number] TSHon 03-04-2023 TSH Qn 3.97 m[IU]/L Normal 0.44 - 3.98 [facility] Comment on above: Result Comment: TSH testing is performed using different testing methodology at [facility] than at other [facility]. Direct result comparisons should only be made within the same method. Performed By: #### T SH2 #### [address] [address] 25-hydroxyvitamin D3 [Mass/V ol]on 01-04-2023 VITAMIN D 24 ng/mL Abnormal 31 - 80 ng/mL [facility] CBC W/DIFF/PLT (EXTERNAL LAB ROBIN)on 01-04-2023 Erythrocyte distribution width (RBC) [Ratio] 14.2 % 12.3 - 15.4 % [facility] Hematocrit (Bld) [Volume fraction] 41.3 % 37.5 - 51.0 % [facility] Hemoglobin (Bld) [Mass/Vol] 13 g/dL 12.6 - 17.7 g/dL [facility] MCHC (RBC) [Mass/Vol] 31.5 g/dL 31.5 - 35.7 g/dL [facility] MCV (RBC) [Entitic vol] 83 fL 79 - 97 fL [facility] Platelets (Bld) [#/Vol] 207 10*3/uL 150 - 379 k/uL [facility] RBC (Bld) [#/Vol] 4.98 10*6/uL 4.14 - 5.8 0 M/uL [facility] WBC (Bld) [#/Vol] 6.2 10*3/uL 3.4 - 10.8 K/uL [facility] CMP (EXTERNAL LAB ROBIN)on A/G RATIO [facility] Albumin [Mass/Vol] 4.2 g/dL 3.5 - 5.5 g/dL [facility] ALP [Catalytic activity/Vol] 74 U/L 39 - 117 IU/L [facility] ALT [Catalytic activity/Vol] 16 U/L 0 - 44 IU/L [facility] AST [Catalytic activity/Vol] 19 U/L 0 - 40 IU/L [facility] Bilirubin [Mass/Vol] 0.5 mg/dL 0.0 - 1.2 mg/dL [facility] BUN [facility] Calcium [Mass/Vol] 9.2 mg/dL 8.7 - 10. 2 mg/dL [facility] Chloride [Moles/Vol] 102 mmol/L 97 - 108 mmol/L [facility] CO2 [Moles/Vol] 28 mmol/L 18 - 29 mmol/L [facility] Creatinine [Mass/Vol] 1.08 mg/dL Abnormal 0.5 - 1.05 mg/dL [facility] eFGR NON AM 54 mL/min/1.73 Abnormal 59 - > mL/min/1.73 [facility] eGFR AM 54 mL/min/1.73 Abnormal 59 - > mL/min/1.73 [facility] GLOBULIN, TOTAL [facility] Glucose [Mass/Vol] 102 mg/dL Abnormal 65 - 99 mg/dL [facility] Potassium [Moles/Vol] 3.7 mmol/L 3.5 - 5.2 mmol/L [facility] Protein [Mass/Vol] 7.2 g/dL 6.0 - 8.5 g/dL [facility] Sodium [Moles/Vol] 138 mmol/L 134 - 144 mmol/L [facility] Urea nitrogen/Creatinine [Mass ratio] 12 mg/mg - [facility] LIPID PANEL - EXTERNALon Cholesterol - Intl 212 Abnormal 0 - 199 [facility] HDL Cholesterol Bld - Intl 76 40 [facility] LDL Chol Calc - Intl 119 Abnormal 0 - 99 [facility] Non-HDL Cholesterol PL - Intl [facility] Total Chol/HDL Ratio - Intl [facility] Triglycerides Bld - Intl 83 0 - 149 [facility] TSH BLDon 01-04-2023 TSH Qn 4.30 m[IU]/L Abnormal 0.44 - 3.98 [facility] Echocardiogramon 11-25-2022 Echocardiography [facility] nter [address] [place], [place] [phone], TRANSTHORACIC ECHOCARDIOGRAM REPORT Patient Name: BRANDON ROACHUBLE Reading Physician: [id number] Herson Cardenas MD Study Date: 11/25/2022 Referring Physician: Pilar Ferrer CNP MRN/PID: [id number] PCP: Accession/Order#: [id number] Department Location: [facility] Echo Lab Date of : 1945 Fellow: Gender: F Nurse: Admit Date: Tobacco Feeder Catcher: AMY Ken RVT Admission Status: Outpatient Additional Staff: Height: 154.94 cm CC Report to: Weight: 90.72 kg Study Type: Echocardiogram BSA: 1.89 m2 Blood Pressure: 132 /84 mmHg Diagnosis/ICD: I35.0-Nonrheumatic aortic (valve) stenosis Indication: Procedure/CPT: Echo Complete w Full Doppler-75045 Patient History: Pertinent History: No previous echo. [...] LA Area A2C: 16.1 cm2 LA [place] A4C: 5.6 cm LA [place] A2C: 5.4 cm LA Volume Index: 21.6 [...] AoV Mean P.0 mmHg (1.7-11.5mmHg) LVOT Max Giovanni: 0.98 m/s (<=1.1m/s) AoV VTI: 91.40 cm [...] Accel Time: 92 msec (>120ms) PV Max Giovanni: 1.0 m/s (0.6-0.9m/s) PV Max P.2 mmHg [id number] Herson Cardenas MD (more content not included)... [facility] Narrative Note - Outpatient- CPS for definityon 11-25-2022 Narrative Note - Outpatient-CPS for definity Narrative Note: Discipline/ClinicCPS for definity Description Was called to CPS department to give Definity. Started a 22g IV in the R AC on first attempt. Flushed the IV with normal saline. Then the production technician instructed to give 1ml of Definity. Exam completed and IV flushed with normal saline and d/c with. angiocath intact. Dressing applied to IV location. Patient tolerated without complaint. Electronic Signatures: Latisha Marie (RN) (Signed 25-Nov-2022 10:14) Authored: Narrative Note - OP Last Updated: 25-Nov-2022 10:14 by Latisha Marie (RN) [facility] VAS LAB Carotid Artery Dupl ex Ultrasounon 11-25-2022 [facility] [place] [address] [phone], Vascular Lab Report Carotid Artery Duplex Ultrasound Patient Name: BRANDON MURO Reading Physician: [id number] Miles Hines MD Study Date: 11/25/2022 Referring Physician: Pilar Ferrer CNP MRN/PID: [id number] PCP: Accession/Order#: [id number] CC Report to: Date of : 1945 Technologist: Humphrey Patel Gender: F Technologist 2: Admission Status: Outpatient Location Performed: [facility] Diagnosis/ICD: R09.89-Other specified symptoms and signs involving the circulatory and respiratory systems; 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 Percent differential counts (%) should be interpreted in the context of the absolute cell counts (cells/L). Performed By: #### C BCDF #### [address] [address] Basophils (Bld) [#/Vol] 0.06 10*3/uL Normal 0.00 - 0.10 [facility] Comment on above: Performed By: #### C BCDF #### [place] [address] Basophils/100 WBC (Bld) 1.0 % Normal 0.0 - 2.0 [facility] Comment on above: Performed By: #### C BCDF #### [address] [address] Eosinophils (Bld) [#/Vol] 0.35 10*3/uL Normal 0.00 - 0.40 [facility] Comment on above: Performed By: #### C BCDF #### [address] [address] Eosinophils/100 WBC (Bld) 5.8 % Normal 0.0 - 6.0 [facility] Comment on above: Performed By: #### C BCDF #### [address] [address] Erythrocyte distribution width (RBC) [Ratio] 14.3 % Normal 11.5 - 14.5 [facility] Comment on above: Performed By: #### C BCDF #### [address] [address] Hematocrit (Bld) [Volume fraction] 40.9 % Normal 36.0 - 46.0 [facility] Comment on above: Performed By: #### C BCDF #### [address] [address] Hemoglobin (Bld) [Mass/Vol] 12.6 g/dL Normal 12.0 - 16.0 [facility] Comment on above: Performed By: #### C BCDF #### [address] [address] Lymphocytes (Bld) [#/Vol] 2.07 10*3/uL Normal 0.80 - 3.00 [facility] Comment on above: Performed By: #### C BCDF #### [address] [address] Lymphocytes/100 WBC (Bld) 34.5 % Normal 13.0 - 44.0 [facility] Comment on above: Performed By: #### C BCDF #### [address] [address] MCHC (RBC) [Mass/Vol] 30.8 g/dL Low 32.0 - 36.0 [facility] Comment on above: Performed By: #### C BCDF #### [address] [address] MCV (RBC) [Entitic vol] 84 fL Normal 80 - 100 [facility] Comment on above: Performed By: #### C BCDF #### [address] [address] Monocytes (Bld) [#/Vol] 0.39 10*3/uL Normal 0.05 - 0.80 [facility] Comment on above: Performed By: #### C BCDF #### [address] [address] Monocytes/100 WBC (Bld) 6.5 % Normal 2.0 - 10.0 [facility] Comment on above: Performed By: #### C BCDF #### [address] [address] Neutrophils (Bld) [#/Vol] 3.11 10*3/uL Normal 1.60 - 5.50 [facility] Comment on above: Result Comment: Perc ent differential counts (%) should be interpreted in the context of the absolute cell counts (cells/L). Performed By: #### C BCDF #### [address] [address] Neutrophils/100 WBC (Bld) 51.9 % Normal 40.0 - 80.0 [facility] Comment on above: Performed By: #### C BCDF #### [address] [address] Platelets (Bld) [#/Vol] 192 10*3/uL Normal 150 - 450 [facility] Comment on above: Performed By: #### C BCDF #### [address] [address] RBC 4.86 x10E12/L Normal 4.00 - 5.20 [facility] Comment on above: Performed By: #### C BCDF #### [address] [address] WBC (Bld) [#/Vol] 6.0 10*3/uL Normal 4.4 - 11.3 [facility] Comment on above: Performed By: #### C BCDF #### [address] [address] COMPREHENSIVE PANELon 2022 Albumin [Mass/Vol] 4.0 g/dL Normal 3.4 - 5.0 [facility] Comment on above: Performed By: #### C MP #### [address] [address] ALP [Catalytic activity/Vol] 76 U/L Normal 33 - 136 [facility] Comment on above: Performed By: #### C MP #### [address] [address] ALT [Catalytic activity/Vol] 11 U/L Normal 7 - 45 [facility] Comment on above: Result Comment: Abril ents treated with Sulfasalazine may generate falsely decreased results for ALT. Performed By: #### C MP #### [address] [address] Anion gap [Moles/Vol] 10 mmol/L Normal 10 - 20 [facility] Comment on above: Performed By: #### C MP #### [address] [address] AST [Catalytic activity/Vol] 14 U/L Normal 9 - 39 [facility] Comment on above: Performed By: #### C MP #### [address] [address] Bilirubin [Mass/Vol] 0.5 mg/dL Normal 0.0 - 1.2 [facility] Comment on above: Performed By: #### C MP #### [address] [address] Calcium [Mass/Vol] 9.6 mg/dL Normal 8.6 - 10.3 [facility] Comment on above: Performed By: #### C MP #### [address] [address] Chloride [Moles/Vol] 105 mmol/L Normal 98 - 107 [facility] Comment on above: Performed By: #### C MP #### [address] [address] Creatinine [Mass/Vol] 1.03 mg/dL Normal 0.50 - 1.05 [facility] Comment on above: Performed By: #### C MP #### [address] [address] GFR/1.73 sq M.predicted among non-blacks MDRD (S/P/Bld) [Vol rate/Area] 57 mL/min/{1.73_m2} Abnormal >90 [facility] Comment on above: Result Comment: CALC ULATIONS OF ESTIMATED GFR ARE PERFORMED USING THE 2020 CKD-EPI STUDY REFIT EQUATION WITHOUT THE RACE VARIABLE FOR THE IDMS-TRACEABLE CREATININE METHODS. https://jasn.asnjournals.org/content/early/ASN.66736127 88 Performed By: #### C MP #### [address] [address] Glucose [Mass/Vol] 97 mg/dL Normal 74 - 99 [facility] Comment on above: Performed By: #### C MP #### [address] [address] HCO3 (Bld) [Moles/Vol] 29 mmol/L Normal 21 - 32 [facility] Comment on above: Performed By: #### C MP #### [address] [address] Potassium [Moles/Vol] 3.7 mmol/L Normal 3.5 - 5.3 [facility] Comment on above: Performed By: #### C MP #### [address] [address] Protein [Mass/Vol] 7.2 g/dL Normal 6.4 - 8.2 [facility] Comment on above: Performed By: #### C MP #### [address] [address] Sodium [Moles/Vol] 140 mmol/L Normal 136 - 145 [facility] Comment on above: Performed By: #### C MP #### [address] [address] Urea nitrogen [Mass/Vol] 24 mg/dL High 6 - 23 [facility] Comment on above: Performed By: #### C MP #### [address] [address] DIGITAL MAMM SCREENING W/ TO Piper 10-29-2022 DIGITAL MAMM SCREENING W/ FREDA Patient Name: BRANDON MURO STUDY: Digital mammography screening with freda; 10/29/2022 12:01 pm ACCESSION NUMBER(S): [id number] ORDERING CLINICIAN: PILAR FERRER INDICATION: Screening. COMPARISON: [...] Screening. Electronically signed by: JAH SINHA MD [facility] 10-21-2022 Erythrocyte distribution width (RBC) [Ratio] 14.2 % Normal 11.5 - 14.5 [facility] Comment on above: Performed By: #### C BC #### [address] [address] Hematocrit (Bld) [Volume fraction] 41.3 % Normal 36.0 - 46.0 [facility] Comment on above: Performed By: #### C BC #### [address] [address] Hemoglobin (Bld) [Mass/Vol] 13.0 g/dL Normal 12.0 - 16.0 [facility] Comment on above: Performed By: #### C BC #### [address] [address] MCHC (RBC) [Mass/Vol] 31.5 g/dL Low 32.0 - 36.0 [facility] Comment on above: Performed By: #### C BC #### [address] [address] MCV (RBC) [Entitic vol] 83 fL Normal 80 - 100 [facility] Comment on above: Performed By: #### C BC #### [address] [address] Platelets (Bld) [#/Vol] 207 10*3/uL Normal 150 - 450 [facility] Comment on above: Performed By: #### C BC #### [address] [address] RBC 4.98 x10E12/L Normal 4.00 - 5.20 [facility] Comment on above: Performed By: #### C BC #### [address] [address] WBC (Bld) [#/Vol] 6.2 10*3/uL Normal 4.4 - 11.3 [facility] Comment on above: Performed By: #### C BC #### [address] [address] COMPREHENSIVE PANELon 2022 Albumin [Mass/Vol] 4.2 g/dL Normal 3.4 - 5.0 [facility] Comment on above: Performed By: #### C MP #### [address] [address] ALP [Catalytic activity/Vol] 74 U/L Normal 33 - 136 [facility] Comment on above: Performed By: #### C MP #### [address] [address] ALT [Catalytic activity/Vol] 16 U/L Normal 7 - 45 [facility] Comment on above: Result Comment: Abril ents treated with Sulfasalazine may generate falsely decreased results for ALT. Performed By: #### C MP #### [address] [address] Anion gap [Moles/Vol] 12 mmol/L Normal 10 - 20 [facility] Comment on above: Performed By: #### C MP #### [address] [address] AST [Catalytic activity/Vol] 19 U/L Normal 9 - 39 [facility] Comment on above: Performed By: #### C MP #### [address] [address] Bilirubin [Mass/Vol] 0.5 mg/dL Normal 0.0 - 1.2 [facility] Comment on above: Performed By: #### C MP #### [address] [address] Calcium [Mass/Vol] 9.2 mg/dL Normal 8.6 - 10.3 [facility] Comment on above: Performed By: #### C MP #### [address] [address] Chloride [Moles/Vol] 102 mmol/L Normal 98 - 107 [facility] Comment on above: Performed By: #### C MP #### [address] [address] Creatinine [Mass/Vol] 1.08 mg/dL High 0.50 - 1.05 [facility] Comment on above: Performed By: #### C MP #### [address] [address] GFR/1.73 sq M.predicted among non-blacks MDRD (S/P/Bld) [Vol rate/Area] 54 mL/min/{1.73_m2} Abnormal >90 [facility] Comment on above: Result Comment: CALC ULATIONS OF ESTIMATED GFR ARE PERFORMED USING THE 2020 CKD-EPI STUDY REFIT EQUATION WITHOUT THE RACE VARIABLE FOR THE IDMS-TRACEABLE CREATININE METHODS. https://jasn.asnjournals.org/content//ASN.74220258 88 Performed By: #### C MP #### [address] [place] [address] Glucose [Mass/Vol] 102 mg/dL High 74 - 99 [facility] Comment on above: Performed By: #### C MP #### [address] [address] HCO3 (Bld) [Moles/Vol] 28 mmol/L Normal 21 - 32 [facility] Comment on above: Performed By: #### C MP #### [address] [address] Potassium [Moles/Vol] 3.7 mmol/L Normal 3.5 - 5.3 [facility] Comment on above: Performed By: #### C MP #### [address] [address] Protein [Mass/Vol] 7.2 g/dL Normal 6.4 - 8.2 [facility] Comment on above: Performed By: #### C MP #### [address] [address] Sodium [Moles/Vol] 138 mmol/L Normal 136 - 145 [facility] Comment on above: Performed By: #### C MP #### [address] [address] Urea nitrogen [Mass/Vol] 22 mg/dL Normal 6 - 23 [facility] Comment on above: Performed By: #### C MP #### [address] [address] LIPID PANEL (CORONARY RISK 2 )on 10-21-2022 Cholesterol [Mass/Vol] 212 mg/dL High 0 - 199 [facility] Comment on above: Result Comment: . AGE [...] dosing. Performed By: #### L IPID #### [address] [address] Cholesterol in HDL [Mass/Vol] 76.0 mg/dL Normal [facility] Comment on above: Result Comment: . AGE VERY LOW LOW NORMAL HIGH 0-19 Y < 35 < 40 40-45 ---- 20-24 Y ---- < 40 >45 ---- >24 Y ---- < 40 40-60 >60 . Performed By: #### L IPID #### [address] [address] Cholesterol in LDL [Mass/Vol] 119 mg/dL High 0 - 99 [facility] Comment on above: Result Comment: . NEAR BORD AGE DESIRABLE OPTIMAL HIGH HIGH VERY HIGH 0-19 Y 0 - 109 --- 110-129 >/= 130 ---- 20-24 Y 0 - 119 --- 120-159 >/= 160 ---- >24 Y 0 - 99 100-129 130-159 160-189 >/=190 . Performed By: #### L IPID #### [address] [address] Cholesterol in VLDL [Mass/Vol] 17 mg/dL Normal 0 - 40 [facility] Comment on above: Performed By: #### L IPID #### [address] [address] Cholesterol.total/C holesterol in HDL [Mass ratio] 2.8 {ratio} Normal [facility] Comment on above: Result Comment: REF VALUES DESIRABLE < 3.4 HIGH RISK > 5.0 Performed By: #### L IPID #### [address] [address] Triglyceride [Mass/Vol] 83 mg/dL Normal 0 - 149 [facility] Comment on above: Result Comment: . AGE [...] dosing. Performed By: #### L IPID #### [address] [address] TSHon 10-21-2022 TSH Qn 4.30 m[IU]/L High 0.44 - 3.98 [facility] Comment on above: Result Comment: TSH testing is performed using different testing methodology at [facility] than at other [facility]. Direct result comparisons should only be made within the same method. Performed By: #### T SH2 #### [address] [address] VITAMIN D, 25-HYDROXYon 09-27 VITAMIN D, 25-HYDROXY 24 ng/mL Abnormal [facility] Comment on above: Result Comment: . DEFICIENCY: < 20 NG/ML INSUFFICIENCY: 20-29 NG/ML SUFFICIENCY: 30-100 NG/ML THIS ASSAY ACCURATELY QUANTIFIES THE SUM OF VITAMIN D3, 25-HYDROXY AND VIT D2,25-HYDROXY. Performed By: #### V TDOH #### [address] [address] Colonoscopyon 09-16-2022 Colonoscopy PATIENTNAME Patient Name: Brandon Muro EXAMDATE Procedure Date: 09/16/2022 10:18 AM PATIENTID PATIENTACCOUNTNUM PATIENTDOB Date of : 1945 ADMITTYPE Admit Type: Outpatient PATIENTROOM Site: [place] [address] ETHNICITY Ethnicity: Not or RACE Race: White PROVDR Attending MD: Sesar Quinones DO, [id number] ENDOPROCEDURENAME Procedure: Colonoscopy INDICATION Indications: Hematochezia PRIMARYPROVIDER [...] purposes. CPT_CODES Procedure Code(s): --- Professional --- 41683, Colonoscopy, flexible; diagnostic, including collection of specimen(s) by brushing or washing, when performed (separate procedure) G0500, Moderate sedation services provided by the same physician or other qualified health director of medicare performing a gastrointestinal endoscopic service that sedation supports, requiring the presence of an independent trained observer to assist in the monitoring of the patient's level of consciousness and physiological status; initial 15 minutes of intra-service time; patient age 5 years or older (additional time may be reported with [address], as (more content not included)... Normal [facility] CBC AND DIFFERENTIALon 05-06 % AUTOMATED IMMATURE GRAN 0.8 % Normal 0.0 - 0.9 [facility] Comment on above: Result Comment: Jeannie ture Granulocyte Count (IG) includes promyelocytes, myelocytes and metamyelocytes but does not include bands. Percent differential counts (%) should be interpreted in the context of the absolute cell counts (cells/L). Performed By: #### C BCDF #### [address] [address] Basophils (Bld) [#/Vol] 0.02 10*3/uL Normal 0.00 - 0.10 [facility] Comment on above: Performed By: #### C BCDF #### [address] [address] Basophils/100 WBC (Bld) 0.2 % Normal 0.0 - 2.0 [facility] Comment on above: Performed By: #### C BCDF #### [address] [address] Erythrocyte distribution width (RBC) [Ratio] 13.2 % Normal 11.5 - 14.5 [facility] Comment on above: Performed By: #### C BCDF #### [address] [address] Hematocrit (Bld) [Volume fraction] 37.4 % Normal 36.0 - 46.0 [facility] Comment on above: Performed By: #### C BCDF #### [address] [address] Hemoglobin (Bld) [Mass/Vol] 11.9 g/dL Low 12.0 - 16.0 [facility] Comment on above: Performed By: #### C BCDF #### [address] [address] Lymphocytes (Bld) [#/Vol] 0.72 10*3/uL Low 0.80 - 3.00 [facility] Comment on above: Performed By: #### C BCDF #### [address] [address] Lymphocytes/100 WBC (Bld) 8.1 % Normal 13.0 - 44.0 [facility] Comment on above: Performed By: #### C BCDF #### [address] [address] MCHC (RBC) [Mass/Vol] 31.8 g/dL Low 32.0 - 36.0 [facility] Comment on above: Performed By: #### C BCDF #### [address] [address] MCV (RBC) [Entitic vol] 85 fL Normal 80 - 100 [facility] Comment on above: Performed By: #### C BCDF #### [address] [address] Monocytes (Bld) [#/Vol] 0.17 10*3/uL Normal 0.05 - 0.80 [facility] Comment on above: Performed By: #### C BCDF #### [address] [address] Monocytes/100 WBC (Bld) 1.9 % Normal 2.0 - 10.0 [facility] Comment on above: Performed By: #### C BCDF #### [address] [address] Neutrophils (Bld) [#/Vol] 7.88 10*3/uL High 1.60 - 5.50 [facility] Comment on above: Result Comment: Perc ent differential counts (%) should be interpreted in the context of the absolute cell counts (cells/L). Performed By: #### C BCDF #### [address] [address] Neutrophils/100 WBC (Bld) 89.0 % Normal 40.0 - 80.0 [facility] Comment on above: Performed By: #### C BCDF #### [address] [address] Platelets (Bld) [#/Vol] 196 10*3/uL Normal 150 - 450 [facility] Comment on above: Performed By: #### C BCDF #### [address] [address] RBC 4.39 x10E12/L Normal 4.00 - 5.20 [facility] Comment on above: Performed By: #### C BCDF #### [address] [address] WBC (Bld) [#/Vol] 8.9 10*3/uL Normal 4.4 - 11.3 [facility] Comment on above: Performed By: #### C BCDF #### [address] [address] COMPREHENSIVE PANELon 2021 Albumin [Mass/Vol] 4.1 g/dL Normal 3.4 - 5.0 [facility] Comment on above: Performed By: #### C MP #### [address] [address] ALP [Catalytic activity/Vol] 66 U/L Normal 33 - 136 [facility] Comment on above: Performed By: #### C MP #### [address] [address] ALT [Catalytic activity/Vol] 10 U/L Normal 7 - 45 [facility] Comment on above: Result Comment: Abril ents treated with Sulfasalazine may generate falsely decreased results for ALT. Performed By: #### C MP #### [address] [address] Anion gap [Moles/Vol] 13 mmol/L Normal 10 - 20 [facility] Comment on above: Performed By: #### C MP #### [address] [address] AST [Catalytic activity/Vol] 15 U/L Normal 9 - 39 [facility] Comment on above: Performed By: #### C MP #### [address] [address] Bilirubin [Mass/Vol] 0.3 mg/dL Normal 0.0 - 1.2 [facility] Comment on above: Performed By: #### C MP #### [address] [address] Calcium [Mass/Vol] 9.6 mg/dL Normal 8.6 - 10.3 [facility] Comment on above: Performed By: #### C MP #### [address] [address] Chloride [Moles/Vol] 106 mmol/L Normal 98 - 107 [facility] Comment on above: Performed By: #### C MP #### [address] [address] Creatinine [Mass/Vol] 1.24 mg/dL High 0.50 - 1.05 [facility] Comment on above: Performed By: #### C MP #### [address] [address] GFR/1.73 sq M.predicted among non-blacks MDRD (S/P/Bld) [Vol rate/Area] 45 mL/min/{1.73_m2} Abnormal >90 [facility] Comment on above: Result Comment: CALC ULATIONS OF ESTIMATED GFR ARE PERFORMED USING THE 2020 CKD-EPI STUDY REFIT EQUATION WITHOUT THE RACE VARIABLE FOR THE IDMS-TRACEABLE CREATININE METHODS. https://jasn.asnjournals.org/content//ASN.34391078 88 Performed By: #### C MP #### [address] [address] Glucose [Mass/Vol] 104 mg/dL High 74 - 99 [facility] Comment on above: Performed By: #### C MP #### [address] [address] HCO3 (Bld) [Moles/Vol] 27 mmol/L Normal 21 - 32 [facility] Comment on above: Performed By: #### C MP #### [address] [address] Potassium [Moles/Vol] 3.9 mmol/L Normal 3.5 - 5.3 [facility] Comment on above: Performed By: #### C MP #### [address] [address] Protein [Mass/Vol] 7.1 g/dL Normal 6.4 - 8.2 [facility] Comment on above: Performed By: #### C MP #### [address] [address] Sodium [Moles/Vol] 142 mmol/L Normal 136 - 145 [facility] Comment on above: Performed By: #### C MP #### [address] [address] Urea nitrogen [Mass/Vol] 26 mg/dL High 6 - 23 [facility] Comment on above: Performed By: #### C MP #### [address] [address] Coronavirus 2019 RNA by PCR, Screening Asymptomticon 08-22-2021 Coronavirus 2019 RNA by PCR, Screening Asymptomtic Not detected Normal See Below [facility] Work Phone: Comment on [...] make patient management decisions.Fact sheet for providers: https://www.fda.gov/media/205512/downloadFact sheet for patients: https://www.fda.gov/media/872108/downloadThis test has received FDA Emergency Use Authorization (EUA) and has been verified by [facility] ([facility]). This test is only authorized for the duration of time that circumstances exist to justify the authorization of the emergency use of in vitro diagnostic tests for the detection of SARS-CoV-2 virus and/or diagnosis of COVID-19 infection under section 564(b)(1) of the Act, 21 U.S.C. 360bbb-3(b)(1), unless the authorization is terminated or revoked sooner. [facility] is certified under CLIA-88 as qualified to perform high complexity testing. Testing is performed in the [facility] laboratories located at [address] [place] [address]. OBSOLETEon 05-28-2021 OBSOLETE Refill (AGINTMLW) -- BRANDON MURO ([id number]) 1945 F Date Time Provider Department 05/28/21 PILAR FERRER AGINTMLW During your visit today, [...] Date Reviewed: 05/14/2021 Reviewed by: Pilar Ferrer APRN.BILINGUAL TEACHER - Fully Assessed Reason for Visit: Refill [...] Encounter Status:Closed by MICHELLE ARZATE on 05/28/21 [facility] OBSOLETEon 05-27-2021 OBSOLETE Refill (AGINTMLW) -- BRANDON MURO ([id number]) 1945 F Date Time Provider Department 05/27/21 [...] Date Reviewed: 05/14/2021 Reviewed by: Pilar Ferrer, JULIO.BILINGUAL TEACHER - Fully Assessed Reason for Visit: Refill [...] Encounter Status:Closed by MICHELLE ARZATE on 05/27/21 [facility] CNOVon 05-14-2021 CNOV Office Visit (AGINTM LW) -- BRANDON MURO ([id number]) 1945 F Date Time Provider Department 05/14/21 1:20 PM PILAR FERRERMLBruna During your visit today, we recorded the following information about you: Temperature Pulse Respiration Blood pressure 97.6 degrees 84/minute 18/minute 128/76 Weight Height 93.4 kg 1.575 m Pilar Ferrer APRN.CNP 05/14/2021 2:01 PM Addendum BONE MINERAL DENSITY [...] by diet (1000 mg/day for under 50, 0083-6107 mg/day for 50+) - Exercise recommendations: 150 [...] at increased risk - Patient was counseled ocip-wx-kjdi by myself (the billing provider) for the [...] unspecified rodrigo (more content not included)... Normal [facility] OBSOLETEon 05-14-2021 OBSOLETE Refill (AGINTMLW) -- BHASKARBRANDON Prince ([id number]) 1945 F Date Time Provider Department 05/14/21 PILAR FERRER AGINTMLW During your visit today, we recorded the following information about you: Zaria Ford MA 05/14/2021 5:11 PM Signed Pt called we didn't fill her script for the Omprazole today Patient phones requesting refills as follows: Pending Prescriptions Disp Refills OMEPRAZOLE 40 MG CAPSULE,DELAYED RELEASE 90 capsule 1 Sig: Take 1 capsule by mouth once daily. MELISSA: No Please review and advise. Zaria Ford MA Allergies As of Date: 05/14/2021 Noted Allergy Reaction MOLD 03/03/2012 16 - Unknown PITAVASTATIN 11/13/2012 14 - Other: See Comments Comments: Drug induced lupus. SULFA (SULFONAMIDE ANTIBIOTICS) 03/03/2012 16 - Unknown Comments: Took for bladder infection and infection became worse. TAPE (ADHESIVE TAPE (ROSINS)) 08/20/2014 2 - Rash VICODIN (HYDROCODONE-ACETAMINOPHE* 08/20/2014 8 - GI Upset Date Reviewed: 05/14/2021 Reviewed by: Pilar Ferrer APRN.BILINGUAL TEACHER - Fully Assessed Reason for Visit: Refill [...] Encounter Status:Closed by PILAR FERRER on 05/14/21 [facility] OBSOLETEon 04-24-2021 OBSOLETE Refill (AGINTMLW) -- BRANDON MURO ([id number]) 1945 F Date Time Provider Department 04/24/21 PILAR FERRERMLW During your visit today, we [...] Date Reviewed: 03/21/2019 Reviewed by: Pilar Jade ([facility]) MARY LOU Ferrer - Fully Assessed [...] Encounter Status:Closed by PILAR FERRER on 04/24/21 [facility] OBSOLETEon 02-03-2021 OBSOLETE Refill (AGINTMLW) -- BRANDON MURO ([id number]) 1945 F Date Time Provider Department 02/03/21 [...] Date Reviewed: 03/21/2019 Reviewed by: Pilar Jade ([facility]) MARY LOU Ferrer - Fully Assessed [...] Status:Closed by CAT ZAVALA on 02/03/21 Normal [facility] Established Visit (Pain Medi cine)on 11-11-2020 [...] By: Anastasiia Ordonez; 08/27/2020 1:02:38 PM Tape 1X5YD TAPE Recorded By: Anastasiia Ordonez; 08/27/2020 1:02:38 PM Current Meds Medication NameInstruction amLODIPine Besylate 5 MG Oral Tablet hydroCHLOROthiazide 12.5 MG Oral Tablet Hydroxychloroquine Sulfate [id number] mg daily Losartan Potassium 100 MG Oral Tablet Vitamin B 12 VERU6112 mcg daily Vitamin C [id number] mg daily Vitamin D-3 CAPS50 mg daily Zinc TABS5 mg daily Vitals Vital Signs Recorded: [id number] 02:00PM Fbwmwayvyxa37.6 F Heart Rate82 Znlitxxstge08 Awmaclmj897 Yhcvkxdzu70 Height5 ft 1 in Zviqdk643 lb BMI Czfgbbrnvp49.68 BSA Calculated1.93 Physical Exam Constitutional: no acute [...] for e (more content not included)... Normal [facility] OBSOLETEon 10-21-2020 OBSOLETE Refill (AGINTMLW) -- BRANDON MURO ([id number]) 1945 F Date Time Provider Department 10/21/20 PILAR FERRER (RESOURCE CONSERVATION MANAGER, [facility])AGINTMLW During your visit today, we recorded the following information about you: Zaria Ford CMA 10/21/2020 11:03 AM Signed Last OV 02/07/20 Labs 02/07/20 Pharmacy calls in requesting the following refill(s): Pending Prescriptions Disp Refills AMLODIPINE 5 MG TABLET 90 tablet 0 Sig: Take 1 tablet by mouth once daily MELISSA: Yes Zaria Ford CMA Allergies As of Date: 10/21/2020 Noted Allergy Reaction MOLD 03/03/2012 16 - Unknown PITAVASTATIN 11/13/2012 14 - Other: See Comments Comments: Drug induced lupus. SULFA (SULFONAMIDE ANTIBIOTICS) 03/03/2012 16 - Unknown Comments: Took for bladder infection and infection became worse. TAPE (ADHESIVE TAPE (ROSINS)) 08/20/2014 2 - Rash VICODIN (HYDROCODONE-ACETAMINOPHE* 08/20/2014 8 - GI Upset Date Reviewed: 03/21/2019 Reviewed by: Pilar Jade ([facility]) MARY LOU Ferrer - Fully Assessed [...] Status:Closed by CAT ZAVALA MD on 10/21/20 [facility] OBSOLETEon 10-18-2020 OBSOLETE Refill (AGINTMLW) -- BRANDON MURO ([id number]) 1945 F Date Time Provider Department 10/18/20 PILAR FERRER (RESOURCE CONSERVATION MANAGER, BILINGUAL TEACHER)AGINTMLW During your visit today, we recorded the following information about you: Zaria Ford CMA 10/21/2020 10:09 AM Signed Last OV 02/07/20 labs 02/07/20 Pharmacy calls in requesting the following refill(s): Pending Prescriptions Disp Refills HYDROCHLOROTHIAZIDE 12.5 MG TABLET 90 tablet 0 Sig: Take 1 tablet by mouth once daily MELISSA: Yes Zaria Ford CMA Allergies As of Date: 10/18/2020 Noted Allergy Reaction MOLD 03/03/2012 16 - Unknown PITAVASTATIN 11/13/2012 14 - Other: See Comments Comments: Drug induced lupus. SULFA (SULFONAMIDE ANTIBIOTICS) 03/03/2012 16 - Unknown Comments: Took for bladder infection and infection became worse. TAPE (ADHESIVE TAPE (ROSINS)) 08/20/2014 2 - Rash VICODIN (HYDROCODONE-ACETAMINOPHE* 08/20/2014 8 - GI Upset Date Reviewed: 03/21/2019 Reviewed by: Pilar Jade ([facility]) MARY LOU Ferrer - Fully Assessed [...] Status:Closed by CAT ZAVALA MD on 10/21/20 [facility] OBSOLETEon 09-15-2020 OBSOLETE Refill (AGINTMLW) -- BRANDON MURO ([id number]) 1945 F Date Time Provider Department 09/15/20 PILAR FERRER (RESOURCE CONSERVATION MANAGER, [facility])AGINTMLW During your visit today, we recorded [...] Date Reviewed: 03/21/2019 Reviewed by: Pilar Jade ([facility]) MARY LOU Ferrer - Fully Assessed [...] by PILAR FERRER CNP on 09/16/20 Normal [facility] Established Visit (Pain Medi cine)on 09-09-2020 [...] By: Anastasiia Ordonez; 08/27/2020 1:02:38 PM Tape 1X5YD TAPE Recorded By: Anastasiia Ordonez; 08/27/2020 1:02:38 PM Current Meds Medication NameInstruction amLODIPine Besylate 5 MG Oral Tablet hydroCHLOROthiazide 12.5 MG Oral Tablet Hydroxychloroquine Sulfate [id number] mg daily Losartan Potassium 100 MG Oral Tablet Vitamin B 12 XVJH2034 mcg daily Vitamin C UEVL4219 mg daily Vitamin D-3 CAPS50 mg daily Zinc TABS5 mg daily Vitals Vital Signs Recorded: 09Sep2020 02:55PM Lilkojmtfou91 F Heart Rate81 Nbfdyzpgnmd11 Tceocdpy290 Xpsdbhevv44 Height5 ft 1 in Aqvdfz944 lb BMI Wfwrbkhvps86.36 BSA Calculated1.9 Physical Exam Constitutional: no acute [...] and rissa (more content not included)... Normal [facility] OBSOLETEon 09-01-2020 OBSOLETE Refill (AGINTMLW) -- BRANDON MURO ([id number]) 1945 F Date Time Provider Department 09/01/20 PILAR FERRER (RESOURCE CONSERVATION MANAGER, [facility])AGINTMLW During your visit today, we recorded [...] Date Reviewed: 03/21/2019 Reviewed by: Pilar Jade ([facility]) MARY LOU Ferrer - Fully Assessed [...] by PILAR FERRER CNP on 09/02/20 Normal [facility] Initial Visit (Pain Medicine )on 08-27-2020 [...] or Bone Graft Simulator, Implanted Breast Tissue Commissioner [employer], Glucose Monitor, or Neulasta Device? : No [...] are worse (more content not included)... Normal [facility] Coronavirus 2019 RNA by PCR, Screening Asymptomticon 06-08-2020 Coronavirus 2019 RNA by PCR, Screening Asymptomtic NOT DETECTED See Below [facility] Internal Medicine Work Phone: Comment on [...] make patient management decisions.Fact sheet for providers: https://www.fda.gov/media/443969/downloadFact sheet for patients: https://www.fda.gov/media/798526/downloadThis test has received FDA Emergency Use Authorization (EUA) and has been verified by [facility] ([facility]). This test is only authorized for the duration of time that circumstances exist to justify the authorization of the emergency use of in vitro diagnostic tests for the detection of SARS-CoV-2 virus and/or diagnosis of COVID-19 infection under section 564(b)(1) of the Act, 21 U.S.C. 360bbb-3(b)(1), unless the authorization is terminated or revoked sooner. [facility] is certified under CLIA-88 as qualified to perform high complexity testing. Testing is performed in the [facility] laboratories located at [address] [place] [address]. Coronavirus 2019 RNA by PCR, Screening Asymptomticon 06-06-2020 Coronavirus 2019 RNA by PCR, Screening Asymptomtic NOT DETECTED See Below [facility] Work Phone: Comment on [...] this test method. Fact sheet for providers: https://www.fda.gov/media/440522/downloadFact sheet for patients: https://www.fda.gov/media/568785/downloadThis test has received FDA Emergency Use Authorization [EUA] and has been verified by [facility] ([facility]). This test is only authorized for the duration of time that circumstances exist to justify the authorization of the emergency use of in vitro diagnostic tests for the detection of SARS-CoV-2 virus and/or diagnosis of COVID-19 infection under section 564(b)(1) of the Act, 21 U.S.C. 360bbb-3(b)(1), unless the authorization is terminated or revoked sooner. [facility] is certified under CLIA-88 as qualified to perform high complexity testing. Testing is performed in the [facility] laboratories located at [address] [place] [address]. Basic Panelon 02-27-2020 Anion gap [Moles/Vol] 9 mmol/L Normal 9-18 [facility] Comment on above: Performed By: #### L ESR #### [address] [address] Calcium [Mass/Vol] 9.9 mg/dL Normal 8.5-10.2 [facility] Comment on above: Performed By: #### L ESR #### [address] [address] Chloride [Moles/Vol] 103 mmol/L Normal 97-105 [facility] Comment on above: Performed By: #### L ESR #### [address] [address] CO2 Blood 27 mmol/L Normal 22-30 [facility] Comment on above: Performed By: #### L ESR #### [address] [address] Creatinine [Mass/Vol] 1.05 mg/dL High 0.58-0.96 [facility] Comment on above: Performed By: #### L ESR #### [address] [address] Glucose [Mass/Vol] 99 mg/dL Normal 74-99 [facility] Comment on above: Result Comment: The [place] Diabetes Association (ADA) provides guidance for cutoff [...] Standards of Medical Care in Diabetes 2016; [place] [employer]. Diabetes Care. 2016;39(Suppl 1). Performed By: #### L ESR #### [address] [address] Potassium [Moles/Vol] 3.8 mmol/L Normal 3.7-5.1 [facility] Comment on above: Performed By: #### L ESR #### [address] [address] Sodium [Moles/Vol] 139 mmol/L Normal 136-144 [facility] Comment on above: Performed By: #### L ESR #### [address] [address] Urea nitrogen [Mass/Vol] 26 mg/dL High 7-21 [facility] Comment on above: Performed By: #### L ESR #### [address] [address] MDRD eGFRon 02-27-2020 GFR/1.73 sq M predicted among non-blacks MDRD (S/P/Bld) [Vol rate/Area] 54.68 mL/min/{1.73_m2} Normal >60mL/min/1. 73m2 [facility] Comment on above: Result Comment: If t he patient is , multiply the result by 1.210. Performed By: #### L ESR #### [address] [address] Total 25-OH Vitamin Don 01-26 Total 25-OH Vitamin D 28.1 ng/mL Low 30.0-100.0 [facility] Comment on above: Performed By: #### L ESR #### [facility] [address] [place] [address] Comprehensive Panelon 2019 Albumin [Mass/Vol] 4.7 g/dL Normal 3.9-4.9 [facility] Comment on above: Performed By: #### L ESR #### [facility] [address] [place] [address] ALP [Catalytic activity/Vol] 64 U/L Normal 34-123 [facility] Comment on above: Performed By: #### L ESR #### [facility] [address] [place] [address] ALT-SGPT Blood 14 U/L Normal 7-38 [facility] Comment on above: Performed By: #### L ESR #### [facility] [address] [place] [address] Anion gap [Moles/Vol] 14 mmol/L Normal 9-18 [facility] Comment on above: Performed By: #### L ESR #### [facility] [address] [place] [address] AST-SGOT Blood 19 U/L Normal 13-35 [facility] Comment on above: Performed By: #### L ESR #### [facility] [address] [place] [address] Bilirubin Ql (U) 0.4 mg/dL Normal 0.2-1.3 [facility] Comment on above: Performed By: #### L ESR #### [facility] [address] [place] [address] Calcium [Mass/Vol] 10.4 mg/dL High 8.5-10.2 [facility] Comment on above: Performed By: #### L ESR #### [facility] [address] [place] [address] Chloride [Moles/Vol] 98 mmol/L Normal 97-105 [facility] Comment on above: Performed By: #### L ESR #### [facility] [address] [place] [address] CO2 Blood 25 mmol/L Normal 22-30 [facility] Comment on above: Performed By: #### L ESR #### [facility] [address] [place], [place] [address] Creatinine [Mass/Vol] 1.11 mg/dL High 0.58-0.96 [facility] Comment on above: Performed By: #### L ESR #### [facility] [address] [place], [place] [address] Glucose [Mass/Vol] 97 mg/dL Normal 74-99 [facility] Comment on above: Result Comment: The [place] Diabetes Association (ADA) provides guidance for cutoff [...] Standards of Medical Care in Diabetes 2016; [place] [employer]. Diabetes Care. 2016;39(Suppl 1). Performed By: #### L ESR #### [facility] [address] [place], [place] [address] Potassium [Moles/Vol] 3.5 mmol/L Low 3.7-5.1 [facility] Comment on above: Performed By: #### L ESR #### [facility] [address] [place], [place] [address] Protein [Mass/Vol] 7.9 g/dL Normal 6.3-8.0 [facility] Comment on above: Performed By: #### L ESR #### [facility] [address] [place], [place] [address] Sodium [Moles/Vol] 137 mmol/L Normal 136-144 [facility] Comment on above: Performed By: #### L ESR #### [facility] [address] [place], [place] [address] Urea nitrogen [Mass/Vol] 26 mg/dL High 7-21 [facility] Comment on above: Performed By: #### L ESR #### [facility] [address] [place] [address] Hemogramon 02-07-2020 Erythrocyte distribution width (RBC) [Ratio] 13.5 % Normal 11.5-15.9 [facility] Comment on above: Performed By: #### L ESR #### [facility] [address] [place] [address] Hematocrit (Bld) [Volume fraction] 41.6 % Normal 37.0-47.0 [facility] Comment on above: Performed By: #### L ESR #### [facility] [address] [place] [address] Hemoglobin (Bld) [Mass/Vol] 13.5 g/dL Normal 12.0-16.0 [facility] Comment on above: Performed By: #### L ESR #### [place] [address] MCH (RBC) [Entitic mass] 26.8 pg Low 27.0-31.0 [facility] Comment on above: Performed By: #### L ESR #### [facility] [address] [place] [address] MCHC (RBC) [Mass/Vol] 32.5 % Normal 32.0-36.0 [facility] Comment on above: Performed By: #### L ESR #### [place] [address] MCV (RBC) [Entitic vol] 82.7 fL Normal 81.0-99.0 [facility] Comment on above: Performed By: #### L ESR #### [facility] [address] [place] [address] Platelet mean volume (Bld) [Entitic vol] 12.0 fL High 7.1-10.5 [facility] Comment on above: Performed By: #### L ESR #### [facility] [address] [place] [address] Platelets (Bld) [#/Vol] 207 thou/cmm Normal 150-400 [facility] Comment on above: Performed By: #### L ESR #### [facility] [address] [place], [place] [address] RBC (Bld) [#/Vol] 5.03 mil/cmm Normal 4.20-5.40 [facility] Comment on above: Performed By: #### L ESR #### [facility] [address] [place], [place] [address] WBC (Bld) [#/Vol] 7.0 thou/cmm Normal 4.8-10.5 [facility] Comment on above: Performed By: #### L ESR #### [facility] [address] [place], [place] [address] Lipid Profile, Basicon 02-06 Cholesterol [Mass/Vol] 187 mg/dL Normal 0-199 [facility] Comment on above: Result Comment: Tota l Cholesterol < 200 mg/dL, Desirable Total Cholesterol 200 to 239 mg/dL, Borderline high Total Cholesterol > 239 mg/dL, High Performed By: #### L LPF #### [address] [address] Cholesterol in HDL [Mass/Vol] 74 mg/dL Normal [facility] Comment on above: Result Comment: Refe rence Range: HDL Cholesterol 40- 59 mg/dL, Acceptable HDL Cholesterol >59 mg/dL, High; Negative risk factor for coronary heart disease HDL Cholesterol <40 mg/dL, Low; Positive risk factor for coronary heart disease Performed By: #### L LPF #### [facility] [address] [place], [place] [address] Cholesterol in LDL [Mass/Vol] 101 mg/dL High 0-99 [facility] Comment on above: Result Comment: LDL Cholesterol < 100 mg/dL, Optimal LDL Cholesterol 100 to 129 mg/dL, Near optimal/above optimal LDL Cholesterol 130 to 159 mg/dL, Borderline high LDL Cholesterol 160 to 189 mg/dL, High LDL Cholesterol > 189 mg/dL, Very high Secondary prevention optimal LDL Cholesterol levels are recommended to be < 70 mg/dL Performed By: #### L LPF #### [facility] [address] [place], [place] [address] Cholesterol in LDL/Cholesterol in HDL [Mass ratio] 1.36 Normal 0.00-2.53 [facility] Comment on above: Performed By: #### L LPF #### [facility] [address] [place] [address] Cholesterol.total/C holesterol in HDL [Mass ratio] 2.53 {ratio} Normal 0.00-5.09 [facility] Comment on above: Performed By: #### L LPF #### [facility] [address] [place] [address] FASTING TIME 12 Hrs Normal [facility] Comment on above: Performed By: #### L LPF #### [facility] [address] [place] [address] Non-HDL Cholesterol 113 mg/dL Normal 0-129 [facility] Comment on above: Result Comment: Non HDL [...] mg/dL Performed By: #### L LPF #### [facility] [address] [place] [address] Triglyceride Blood 61 mg/dL Normal 0-149 [facility] Comment on above: Result Comment: Trig lycerides < 150 mg/dL, Normal Triglycerides 150 to 199 mg/dL, Borderline high Triglycerides 200 to 499 mg/dL, High Triglycerides > 499 mg/dL, Very high Performed By: #### L LPF #### [facility] [address] [place] [address] VLDL Cholesterol 12 mg/dL Normal 0-29 [facility] Comment on above: Performed By: #### L LPF #### [facility] [address] [place] [address] MDRD eGFRon 02-07-2020 GFR/1.73 sq M predicted among non-blacks MDRD (S/P/Bld) [Vol rate/Area] 51.29 mL/min/{1.73_m2} Normal >60mL/min/1. 73m2 [facility] Comment on above: Result Comment: If t he patient is , multiply the result by 1.210. Performed By: #### L ESR #### [facility] [address] [place] [address] Urinalysis, reflexon 020 Appearance (U) CLEAR Normal [facility] Comment on above: Performed By: #### L URIR #### [facility] [address] [place] [address] Bilirubin Urine Negative Normal Negative [facility] Comment on above: Performed By: #### L URIR #### [facility] [address] [place] [address] Color (U) YELLOW Normal [facility] Comment on above: Performed By: #### L URIR #### [facility] [address] [place] [address] Ep Cells Urine 0-2 Normal 0-5 [facility] Comment on above: Performed By: #### L URIR #### [facility] [address] [place] [address] Glucose Ql (U) Negative Normal Negative [facility] Comment on above: Performed By: #### L URIR #### [facility] [address] [place] [address] Hemoglobin,Urine Negative Normal Negative [facility] Comment on above: Performed By: #### L URIR #### [facility] [address] [place] [address] Ketone Urine Negative Normal Negative [facility] Comment on above: Performed By: #### L URIR #### [facility] [address] [place] [address] Leukocytes Esterase Negative Normal Negative [facility] Comment on above: Performed By: #### L URIR #### [facility] [address] [place] [address] Nitrites Urine Negative Normal Negative [facility] Comment on above: Performed By: #### L URIR #### [facility] [address] [place] [address] pH (U) 5.5 [pH] Normal 5.0-8.0 [facility] Comment on above: Performed By: #### L URIR #### [facility] [address] [place] [address] Protein (U) [Mass/Vol] Negative Normal Negative [facility] Comment on above: Performed By: #### L URIR #### [facility] [address] [place] [address] RBC LM.HPF (Urine sed) [#/Area] NONE Normal 0-3 [facility] Comment on above: Performed By: #### L URIR #### [place] [address] Specific [place], Ur 1.010 Normal 1.005-1.030 [facility] Comment on above: Performed By: #### L URIR #### [place] [address] Urobilinogen,Ur 0.2 EU/dL Normal 0.2-1.0 [facility] Comment on above: Performed By: #### L URIR #### [place] [address] WBC LM.HPF (Urine sed) [#/Area] NONE Normal 0-5 [facility] Comment on above: Performed By: #### L URIR #### [place] [address] Basic Panelon 05-03-2019 Creatinine [Mass/Vol] 1.04 mg/dL High 0.51-0.95 [facility] Comment on above: Performed By: #### P 8 #### [place] [address] Anion gap [Moles/Vol] 9 mmol/L Normal 8-16 [facility] Comment on above: Performed By: #### P 8 #### [place] [address] CO2 [Moles/Vol] 27 mmol/L Normal 21-32 [facility] Comment on above: Performed By: #### P 8 #### [place] [address] Urea nitrogen [Mass/Vol] 16 mg/dL Normal 7-18 [facility] Comment on above: Performed By: #### P 8 #### [facility] [address] [place], [place] [address] Calcium [Mass/Vol] 9.4 mg/dL Normal 8.5-10.1 [facility] Comment on above: Performed By: #### P 8 #### [facility] [address] [place], [place] [address] Glucose [Mass/Vol] 131 mg/dL High 70-99 [facility] Comment on above: Performed By: #### P 8 #### [facility] [address] [place], [place] [address] Chloride [Moles/Vol] 103 mmol/L Normal 98-107 [facility] Comment on above: Performed By: #### P 8 #### [facility] [address] [place] [id number] Potassium [Moles/Vol] 3.3 mmol/L Low 3.5-5.1 [facility] Comment on above: Performed By: #### P 8 #### [facility] [address] [place] [address] Sodium [Moles/Vol] 136 mmol/L Normal 136-145 [facility] Comment on above: Performed By: #### P 8 #### [facility] [address] [place] [address] MDRD GFRon 05-03-2019 GFR/1.73 sq M predicted among non-blacks MDRD (S/P/Bld) [Vol rate/Area] 52.14 mL/min/{1.73_m2} Normal >60mL/min/1. 73m2 [facility] Comment on above: Result Comment: If t he patient is , multiply the result by 1.210. Performed By: #### G FR #### [facility] [address] [place] [address] CHELA by IFA Scrn w [employer] CHELA by IFA Scrn w [employer]fl[employer] SEE BELOW Normal [facility] Comment on above: Result Comment: CHELA Positive AB NEGAT Normal range : negative at <1:80 serum dilution. CHELA Titer 1:640 AB NEGAT CHELA Pattern Speckled Performing Laboratory: [facility] [address] [place] [address] Performed By: #### A NAX #### [facility] [address] [place], [place] [address] Basic Panelon 03-22-2019 Anion gap [Moles/Vol] 9 mmol/L Normal 8-16 [facility] Comment on above: Performed By: #### P 8 #### [facility] [address] [place], [place] [address] Calcium [Mass/Vol] 9.6 mg/dL Normal 8.5-10.1 [facility] Comment on above: Performed By: #### P 8 #### [facility] [address] [place], [place] [address] CO2 [Moles/Vol] 27 mmol/L Normal 21-32 [facility] Comment on above: Performed By: #### P 8 #### [facility] [address] [place], [place] [address] Creatinine [Mass/Vol] 1.10 mg/dL High 0.51-0.95 [facility] Comment on above: Performed By: #### P 8 #### [facility] [address] [place], [place] [address] Urea nitrogen [Mass/Vol] 18 mg/dL Normal 7-18 [facility] Comment on above: Performed By: #### P 8 #### [facility] [address] [place], [place] [address] Glucose [Mass/Vol] 87 mg/dL Normal 70-99 [facility] Comment on above: Performed By: #### P 8 #### [facility] [address] [place], [place] [address] Chloride [Moles/Vol] 104 mmol/L Normal 98-107 [facility] Comment on above: Performed By: #### P 8 #### [facility] [address] [place], [place] [address] Potassium [Moles/Vol] 3.4 mmol/L Low 3.5-5.1 [facility] Comment on above: Performed By: #### P 8 #### [facility] [address] [place], [place] [address] Sodium [Moles/Vol] 137 mmol/L Normal 136-145 [facility] Comment on above: Performed By: #### P 8 #### [facility] [address] [place] [address] CRPon 03-22-2019 CRP [Mass/Vol] 2.06 mg/dL High 0.00-0.30 [facility] Comment on above: Performed By: #### C RP3 #### [place] [address] MDRD GFRon 03-22-2019 GFR/1.73 sq M predicted among non-blacks MDRD (S/P/Bld) [Vol rate/Area] 48.89 mL/min/{1.73_m2} Normal >60mL/min/1. 73m2 [facility] Comment on above: Result Comment: If t he patient is , multiply the result by 1.210. Performed By: #### G FR #### [place] [address] Hemogramon 03-21-2019 Erythrocyte distribution width (RBC) [Ratio] 14.4 % Normal 11.5-15.9 [facility] Comment on above: Performed By: #### L CBC #### [place] [address] Hematocrit (Bld) [Volume fraction] 41.6 % Normal 37.0-47.0 [facility] Comment on above: Performed By: #### L CBC #### [place] [address] Hemoglobin (Bld) [Mass/Vol] 13.2 g/dL Normal 12.0-16.0 [facility] Comment on above: Performed By: #### L CBC #### [place] [address] MCH (RBC) [Entitic mass] 26.2 pg Low 27.0-31.0 [facility] Comment on above: Performed By: #### L CBC #### [place] [address] MCHC (RBC) [Mass/Vol] 31.7 % Low 32.0-36.0 [facility] Comment on above: Performed By: #### L CBC #### [facility] [address] [place] [address] MCV (RBC) [Entitic vol] 82.5 fL Normal 81.0-99.0 [facility] Comment on above: Performed By: #### L CBC #### [facility] [address] [place] [address] Platelet mean volume (Bld) [Entitic vol] 11.7 fL High 7.1-10.5 [facility] Comment on above: Performed By: #### L CBC #### [facility] [address] [place] [address] Platelets (Bld) [#/Vol] 235 thou/cmm Normal 150-400 [facility] Comment on above: Performed By: #### L CBC #### [place] [address] RBC (Bld) [#/Vol] 5.04 mil/cmm Normal 4.20-5.40 [facility] Comment on above: Performed By: #### L CBC #### [facility] [address] [place] [address] WBC (Bld) [#/Vol] 9.7 thou/cmm Normal 4.8-10.5 [facility] Comment on above: Performed By: #### L CBC #### [place] [address] Sed Rateon 03-21-2019 Sed Rate 35 mm/hr High 0-20 [facility] Comment on above: Performed By: #### L ESR #### [place] [address] Vital Signs Date Time Vital Sign Value Performing Clinician Facility 12-11-2024 12:12-0400 Body height 157.48 cm Pilar Ferrer NP-C Work Phone: [facility] 12-11-2024 12:12-0400 Body mass index (BMI) [Ratio] 38.5 kg/m2 Pilar Ferrer NP-C Work Phone: [facility] 12-11-2024 12:12-0400 Body weight 95.7 kg Pilar Nabil AIRCRAFT INSTRUMENT REPAIRER-C Work Phone: [facility] 12-11-2024 12:12-0400 Diastolic blood pressure 82 mm[Hg] Pilar Nabil AIRCRAFT INSTRUMENT REPAIRER-C Work Phone: [facility] 12-11-2024 12:12-0400 Heart rate 72 /min Pilar Nabil AIRCRAFT INSTRUMENT REPAIRER-C Work Phone: [facility] 12-11-2024 12:12-0400 Respiratory rate 18 /min Pilar Nabil AIRCRAFT INSTRUMENT REPAIRER-C Work Phone: [facility] 12-11-2024 12:12-0400 Systolic blood pressure 119 mm[Hg] Pilar Nabil AIRCRAFT INSTRUMENT REPAIRER-C Work Phone: [facility] 12-05-2024 09:46-0400 Body height 156.2 cm Pilar Ferrer RESOURCE CONSERVATION MANAGER.BILINGUAL TEACHER Work Phone: [facility] 12-05-2024 09:46-0400 Body mass index (BMI) [Ratio] 39.11 kg/m2 Pilar Nabil RESOURCE CONSERVATION MANAGER.BILINGUAL TEACHER Work Phone: [facility] 12-05-2024 09:46-0400 Body temperature 97.9 [degF] Pilar Johnstonel RESOURCE CONSERVATION MANAGER.BILINGUAL TEACHER Work Phone: [facility] 12-05-2024 09:46-0400 Body weight 95.44 kg Pilar Nabil RESOURCE CONSERVATION MANAGER.BILINGUAL TEACHER Work Phone: [facility] 12-05-2024 09:46-0400 Diastolic blood pressure 68 mm[Hg] Pilar Nabil RESOURCE CONSERVATION MANAGER.BILINGUAL TEACHER Work Phone: [facility] 12-05-2024 09:46-0400 Heart rate 72 /min Pilar Johnstonel RESOURCE CONSERVATION MANAGER.BILINGUAL TEACHER Work Phone: [facility] 12-05-2024 09:46-0400 SaO2% (BldA) [Mass fraction] 98 % Pialr Nabil RESOURCE CONSERVATION MANAGER.BILINGUAL TEACHER Work Phone: [facility] 12-05-2024 09:46-0400 Systolic blood pressure 120 mm[Hg] Pilar Nabil RESOURCE CONSERVATION MANAGER.BILINGUAL TEACHER Work Phone: [facility] 04-19-2024 10:41-0400 Body height 156.2 cm Donell Olivera RESOURCE CONSERVATION MANAGER.BILINGUAL TEACHER Work Phone: [facility] 04-19-2024 10:41-0400 Body mass index (BMI) [Ratio] 40.15 kg/m2 Donell Olivera RESOURCE CONSERVATION MANAGER.BILINGUAL TEACHER Work Phone: [facility] 04-19-2024 10:41-0400 Body temperature 98.01 [degF] Donell Olivera RESOURCE CONSERVATION MANAGER.BILINGUAL TEACHER Work Phone: [facility] 04-19-2024 10:41-0400 Body weight 97.98 kg Donell Olivera RESOURCE CONSERVATION MANAGER.BILINGUAL TEACHER Work Phone: [facility] 04-19-2024 10:41-0400 Diastolic blood pressure 72 mm[Hg] Donell Olivera RESOURCE CONSERVATION MANAGER.BILINGUAL TEACHER Work Phone: [facility] 04-19-2024 10:41-0400 Heart rate 85 /min Donell Olivera RESOURCE CONSERVATION MANAGER.BILINGUAL TEACHER Work Phone: [facility] 04-19-2024 10:41-0400 SaO2% (BldA) [Mass fraction] 98 % Donell Olivera RESOURCE CONSERVATION MANAGER.BILINGUAL TEACHER Work Phone: [facility] 04-19-2024 10:41-0400 Systolic blood pressure 126 mm[Hg] Donell Tribruno RESOURCE CONSERVATION MANAGER.BILINGUAL TEACHER Work Phone: [facility] 02-22-2024 08:04-0400 Body height 156.2 cm Pilar Johnstonel RESOURCE CONSERVATION MANAGER.BILINGUAL TEACHER Work Phone: [facility] 02-22-2024 08:04-0400 Body mass index (BMI) [Ratio] 39.41 kg/m2 Pilar Nabil RESOURCE CONSERVATION MANAGER.BILINGUAL TEACHER Work Phone: [facility] 02-22-2024 08:04-0400 Body weight 96.16 kg Pilar Nabil RESOURCE CONSERVATION MANAGER.BILINGUAL TEACHER Work Phone: [facility] 02-22-2024 08:04-0400 Diastolic blood pressure 72 mm[Hg] Pilar Nabil RESOURCE CONSERVATION MANAGER.BILINGUAL TEACHER Work Phone: [facility] 02-22-2024 08:04-0400 Heart rate 76 /min Pilar Nabil RESOURCE CONSERVATION MANAGER.BILINGUAL TEACHER Work Phone: [facility] 02-22-2024 08:04-0400 Respiratory rate 16 /min Pilar Nabil RESOURCE CONSERVATION MANAGER.BILINGUAL TEACHER Work Phone: [facility] 02-22-2024 08:04-0400 SaO2% (BldA) [Mass fraction] 98 % Pilar Nabil RESOURCE CONSERVATION MANAGER.BILINGUAL TEACHER Work Phone: [facility] 02-22-2024 08:04-0400 Systolic blood pressure 120 mm[Hg] Pilar Nabil RESOURCE CONSERVATION MANAGER.BILINGUAL TEACHER Work Phone: [facility] 11-30-2023 09:59-0400 Body height 156.2 cm Pilar Nabil RESOURCE CONSERVATION MANAGER.BILINGUAL TEACHER Work Phone: [facility] 11-30-2023 09:59-0400 Body mass index (BMI) [Ratio] 39.41 kg/m2 Pilar Nabil RESOURCE CONSERVATION MANAGER.BILINGUAL TEACHER Work Phone: [facility] 11-30-2023 09:59-0400 Body temperature 98.2 [degF] Pilar Nabil RESOURCE CONSERVATION MANAGER.BILINGUAL TEACHER Work Phone: [facility] 11-30-2023 09:59-0400 Body weight 96.16 kg Pilar Nabil RESOURCE CONSERVATION MANAGER.BILINGUAL TEACHER Work Phone: [facility] 11-30-2023 09:59-0400 Diastolic blood pressure 76 mm[Hg] Pilar Nabil RESOURCE CONSERVATION MANAGER.BILINGUAL TEACHER Work Phone: [facility] 11-30-2023 09:59-0400 Heart rate 82 /min Pilar Nabil RESOURCE CONSERVATION MANAGER.BILINGUAL TEACHER Work Phone: [facility] 11-30-2023 09:59-0400 Respiratory rate 18 /min Pilar Nabil RESOURCE CONSERVATION MANAGER.BILINGUAL TEACHER Work Phone: [facility] 11-30-2023 09:59-0400 SaO2% (BldA) [Mass fraction] 98 % Pilar Nabil RESOURCE CONSERVATION MANAGER.BILINGUAL TEACHER Work Phone: [facility] 11-30-2023 09:59-0400 Systolic blood pressure 128 mm[Hg] Pilar Nabil RESOURCE CONSERVATION MANAGER.BILINGUAL TEACHER Work Phone: [facility] 09-30-2022 09:15-0400 Diastolic blood pressure 72 mm[Hg] Pilar Nabil RESOURCE CONSERVATION MANAGER.BILINGUAL TEACHER Work Phone: [facility] 09-30-2022 09:15-0400 Systolic blood pressure 148 mm[Hg] Pilar Nabil RESOURCE CONSERVATION MANAGER.BILINGUAL TEACHER Work Phone: [facility] 09-30-2022 08:54-0400 Body height 157.5 cm Pilar Nabil RESOURCE CONSERVATION MANAGER.BILINGUAL TEACHER Work Phone: [facility] 09-30-2022 08:54-0400 Body temperature 97.59 [degF] Pilar Nabil RESOURCE CONSERVATION MANAGER.BILINGUAL TEACHER Work Phone: [facility] 09-30-2022 08:54-0400 Body weight 87.54 kg Pilar Nabil RESOURCE CONSERVATION MANAGER.BILINGUAL TEACHER Work Phone: [facility] 09-30-2022 08:54-0400 Heart rate 65 /min Pilar Nabil RESOURCE CONSERVATION MANAGER.BILINGUAL TEACHER Work Phone: [facility] 09-30-2022 08:54-0400 Respiratory rate 18 /min Pilar Nabil RESOURCE CONSERVATION MANAGER.BILINGUAL TEACHER Work Phone: [facility] 09-30-2022 08:54-0400 SaO2% (BldA) [Mass fraction] 98 % Pilar Nabil RESOURCE CONSERVATION MANAGER.BILINGUAL TEACHER Work Phone: [facility] Encounters Encounter Date Encounter Type Care Provider Facility Start: 01-15-2025 End: 01-16-2025 Refill Pilar Ferrer RESOURCE CONSERVATION MANAGER.BILINGUAL TEACHER Work Phone: [facility] Comment on above: Refill Request Start: 01-11-2025 End: 01-11-2025 ambulatory PILAR FERRER Facility:[facility] Start: 12-27-2024 Non-patient / Non-visit Dr. Reno vee MD -[facility] Start: 12-27-2024 End: 12-27-2024 ambulatory Pilar Ferrer AIRCRAFT INSTRUMENT REPAIRER-C Work Phone: -Cardiovascular Services Start: 12-27-2024 End: 12-27-[address] Kayla Steinberg MD -[facility] Work Phone: Start: 12-27-2024 End: 12-27-2024 ambulatory Kayla Steinberg Facility:[facility] Start: 12-15-2024 End: 12-17-2024 Refill Pilar Ferrer RESOURCE CONSERVATION MANAGER.BILINGUAL TEACHER Work Phone: [facility] Comment on above: Refill Request Start: 12-11-2024 End: 12-11-[address] Kayla Steinberg MD -[facility] Work Phone: Start: 12-11-2024 End: 12-11-2024 ambulatory Pilar Ferrer AIRCRAFT INSTRUMENT REPAIRER-C Work Phone: [facility] Work Phone: Start: 12-07-2024 End: 12-07-2024 Refill Pilar Ferrer RESOURCE CONSERVATION MANAGER.BILINGUAL TEACHER Work Phone: [facility] Comment on above: Refill Request Start: 12-06-2024 End: 12-06-2024 Follow-up encounter Pilar Ferrer RESOURCE CONSERVATION MANAGER.BILINGUAL TEACHER Work Phone: [facility] Comment on above: Results Start: 12-05-2024 End: 12-05-2024 ambulatory [facility] Facility:[facility] Start: 12-05-2024 End: 12-05-2024 ambulatory [facility] Facility:[facility] Start: 12-05-2024 End: 12-05-2024 Patient encounter procedure Pilar Ferrer RESOURCE CONSERVATION MANAGER.BILINGUAL TEACHER Work Phone: [facility] Comment on above: Medicare annual well ness visit, subsequent (Primary Dx); Primary hypertension; Current moderate episode of major depressive disorder without prior episode (HCC); Anxiety and depression; Mixed hyperlipidemia; Mild aortic stenosis; Systemic lupus erythematosus, unspecified SLE type, unspecified organ involvement status (HCC); Elevated fasting blood sugar; Stage 3 chronic kidney disease, unspecified whether stage 3a or 3b CKD (HCC); Vitamin D deficiency; Screening for thyroid disorder Start: 12-02-2024 End: 12-04-2024 Refill Pilar Ferrer RESOURCE CONSERVATION MANAGER.BILINGUAL TEACHER Work Phone: [facility] Comment on above: Refill Request Start: 11-23-2024 ambulatory Pilar Ferrer AIRCRAFT INSTRUMENT REPAIRER Facil ity:[facility] Start: 11-17-2024 End: 11-26-2024 Refill Pilar Ferrer RESOURCE CONSERVATION MANAGER.BILINGUAL TEACHER Work Phone: [facility] Comment on above: Refill Request Start: 09-27-2024 ambulatory Pilar Ferrer AIRCRAFT INSTRUMENT REPAIRER Facil ity:[facility] Start: 09-15-2024 End: 09-17-2024 Refill Pilar Ferrer RESOURCE CONSERVATION MANAGER.BILINGUAL TEACHER Work Phone: [facility] Comment on above: Refill Request Start: 2024 End: 09-10-2024 Refill Pilar Ferrer RESOURCE CONSERVATION MANAGER.BILINGUAL TEACHER Work Phone: [facility] Comment on above: Refill Request Start: 07-06-2024 End: 07-06-2024 ambulatory [facility] Start: 06-06-2024 End: 06-06-[address] [facility] Start: 06-05-2024 End: 06-05-2024 Subsequent hospital visit by physician Mo [id number] X[facility] Comment on above: Pain in left ankle a nd joints of left foot Pain in left foot Start: 06-05-2024 End: 06-05-2024 ambulatory ELIANA NICHOLE [facility] Start: 04-28-2024 End: 04-30-2024 Refill Pilar Ferrer APRN.BILINGUAL TEACHER Work Phone: [facility] Comment on above: Refill Request Start: 04-27-2024 End: 04-30-2024 Refill Pilar Ferrer APRN.BILINGUAL TEACHER Work Phone: [facility] Comment on above: Refill Request Start: 04-26-2024 ambulatory Pilar Ferrer AIRCRAFT INSTRUMENT REPAIRER Facil ity:[facility] Start: 04-24-2024 ambulatory Pilar Ferrer AIRCRAFT INSTRUMENT REPAIRER Facil ity:[facility] Start: 04-24-2024 End: 04-24-2024 [facility] Start: 04-19-2024 End: 04-19-2024 Patient encounter procedure Donell Olivera APRN.BILINGUAL TEACHER Work Phone: [facility] Comment on above: Herpes zoster withou t complication (Primary Dx) Start: 04-19-2024 End: 04-19-2024 ambulatory PILAR NABIL Facility:[facility] Start: 03-28-2024 End: 03-28-2024 ambulatory [facility] Facility:[facility] Start: 03-23-2024 End: 03-23-2024 ambulatory Pilar Ferrer AIRCRAFT INSTRUMENT REPAIRER Facility:[facility] Start: 03-18-2024 End: 03-20-2024 Refill Pilar Ferrer APRN.BILINGUAL TEACHER Work Phone: [facility] Comment on above: Refill Request Start: 02-22-2024 End: 02-22-2024 Patient encounter procedure Pilar Ferrer APRN.BILINGUAL TEACHER Work Phone: [facility] Comment on above: Right wrist pain (Pr imary Dx); Chronic pain of right ankle Start: 02-22-2024 End: 02-22-2024 ambulatory [facility] Facility:[facility] Start: 01-27-2024 Refill Donell wolfe RESOURCE CONSERVATION MANAGER.BILINGUAL TEACHER Work Phone: [facility] Comment on above: Refill Request Start: 01-26-2024 Refill Donell wolfe RESOURCE CONSERVATION MANAGER.BILINGUAL TEACHER Work Phone: [facility] Comment on above: Refill Request Start: 01-06-2024 End: 01-06-2024 ambulatory [facility] Start: 12-16-2023 End: 12-16-2023 [facility] Start: 12-01-2023 Refill Pilar martinez RESOURCE CONSERVATION MANAGER.BILINGUAL TEACHER Work Phone: [facility] Comment on above: Refill Request Start: 11-30-2023 Telephone encounter Pilar Ferrer APRN.BILINGUAL TEACHER Work Phone: [facility] Comment on above: Results Start: 11-30-2023 End: 11-30-2023 Subsequent hospital visit by physician [facility] Comment on above: Acquired clavicle de formity [M95.8] Start: 11-30-2023 End: 11-30-2023 Patient encounter procedure Pilar Ferrer APRN.BILINGUAL TEACHER Work Phone: [facility] Comment on above: Medicare annual well ness visit, subsequent (Primary Dx); Primary hypertension; Anxiety and depression; Acquired clavicle deformity; Allergic rhinitis, unspecified seasonality, unspecified trigger; Stage 3 chronic kidney disease, unspecified whether stage 3a or 3b CKD (HCC); Mixed hyperlipidemia; Vitamin D deficiency; Post-menopausal; Screening for thyroid disorder; Encounter for screening mammogram for malignant neoplasm of breast Start: 11-18-2023 Refill Pilar martinez RESOURCE CONSERVATION MANAGER.BILINGUAL TEACHER Work Phone: [facility] Comment on above: Refill Request Start: 10-29-2023 Refill Pilar Jade Preston el RESOURCE CONSERVATION MANAGER.BILINGUAL TEACHER Work Phone: [facility] Comment on above: Refill Request Start: 10-28-2023 Refill Pilar Jade Preston el RESOURCE CONSERVATION MANAGER.BILINGUAL TEACHER Work Phone: [facility] Comment on above: Refill Request Start: 09-26-2023 Refill Pilar M Nag el RESOURCE CONSERVATION MANAGER.BILINGUAL TEACHER Work Phone: [facility] Comment on above: Refill Request Start: 08-26-2023 End: 08-26-2023 ambulatory PILAR FERRER [facility] Start: 08-17-2023 Refill Pilar Kalie Preston el RESOURCE CONSERVATION MANAGER.BILINGUAL TEACHER Work Phone: [facility] Comment on above: Refill Request Start: 08-11-2023 Telephone encounter Pilar Ferrer RESOURCE CONSERVATION MANAGER.BILINGUAL TEACHER Work Phone: [facility] Comment on above: Results Start: 08-09-2023 [facility] on above: Population Health Na vigation Outreach (ACO Attributed 2023 Medicare Wellness Appt Scheduled) Start: 07-30-2023 Refill Pilar Jade Preston el RESOURCE CONSERVATION MANAGER.BILINGUAL TEACHER Work Phone: [facility] Comment on above: Refill Request Start: 07-29-2023 Refill Pilarsherita martinez RESOURCE CONSERVATION MANAGER.BILINGUAL TEACHER Work Phone: [facility] Comment on above: Refill Request Start: 06-15-2023 Non-patient / Non-visit AIRCRAFT INSTRUMENT REPAIRER-C Jackie Ferrer AIRCRAFT INSTRUMENT REPAIRER Work Phone: [facility] Start: 06-15-2023 End: 06-15-2023 ambulatory AIRCRAFT INSTRUMENT REPAIRER-C Pilar Ferrer AIRCRAFT INSTRUMENT REPAIRER Work Phone: [facility] Work Phone: Start: 06-15-2023 End: 06-15-2023 Patient encounter procedure AIRCRAFT INSTRUMENT REPAIRER-C Pilar Ferrer AIRCRAFT INSTRUMENT REPAIRER Work Phone: [facility]-Cardiovasc[facility] lar Services Work Phone: Start: 04-29-2023 Refill Pilar martinez RESOURCE CONSERVATION MANAGER.BILINGUAL TEACHER Work Phone: [facility] Comment on above: Refill Request Start: 04-11-2023 Refill Pilar Johnston el RESOURCE CONSERVATION MANAGER.BILINGUAL TEACHER Work Phone: [facility] Comment on above: Refill Request Start: 03-09-2023 Chart abstracting Pilar Andrade agel RESOURCE CONSERVATION MANAGER.BILINGUAL TEACHER Work Phone: [facility] Start: 02-19-2023 Telephone encounter Pilar Ferrer RESOURCE CONSERVATION MANAGER.BILINGUAL TEACHER Work Phone: [facility] Comment on above: Lab Orders Start: 01-04-2023 Chart abstracting Pilar Andrade agel RESOURCE CONSERVATION MANAGER.BILINGUAL TEACHER Work Phone: [facility] Start: 01-04-2023 Telephone encounter Pilar Ferrer RESOURCE CONSERVATION MANAGER.BILINGUAL TEACHER Work Phone: [facility] Comment on above: Results (Labs from ) Start: 12-22-2022 Refill Pilar Johnston el RESOURCE CONSERVATION MANAGER.BILINGUAL TEACHER Work Phone: [facility] Comment on above: Refill Request Start: 12-17-2022 Telephone encounter Pilar Ferrer RESOURCE CONSERVATION MANAGER.BILINGUAL TEACHER Work Phone: [facility] Comment on above: Results (Echo ) Start: 12-13-2022 Refill Pilar martinez RESOURCE CONSERVATION MANAGER.BILINGUAL TEACHER Work Phone: [facility] Comment on above: Refill Request Start: 11-25-2022 ambulatory Ms. Pilar Jade luis angel Ferrer Facility:[id number] Start: 10-30-2022 Refill Pilar Johnston el RESOURCE CONSERVATION MANAGER.BILINGUAL TEACHER Work Phone: [facility] Comment on above: Refill Request Start: 10-29-2022 ambulatory Ms. Pilar plasencia Nabil Facility:[id number] Start: 09-30-2022 End: 09-30-2022 Patient encounter procedure Pilar Ferrer RESOURCE CONSERVATION MANAGER.BILINGUAL TEACHER Work Phone: [facility] Comment on above: Primary hypertension (Primary [...] 09-16-2022 End: 09-16-[address] Sesar Quinones Facility:[id number] Start: 08-19-2022 Telephone encounter Donell Olivera APRN.BILINGUAL TEACHER Work Phone: [facility] Comment on above: Orders (UA) Start: 07-28-2022 Refill Pilar martinez RESOURCE CONSERVATION MANAGER.BILINGUAL TEACHER Work Phone: [facility] Comment on above: Refill Request Start: 06-17-2022 Refill Pilar martinez RESOURCE CONSERVATION MANAGER.BILINGUAL TEACHER Work Phone: [facility] Comment on above: Refill Request Start: 06-15-2022 Telephone encounter Pilar Ferrer RESOURCE CONSERVATION MANAGER.BILINGUAL TEACHER Work Phone: [facility] Comment on above: Patient Update Start: 05-26-2022 Refill Pilar martinez RESOURCE CONSERVATION MANAGER.BILINGUAL TEACHER Work Phone: [facility] Comment on above: Refill Request Start: 05-01-2022 Refill Pilar martinez RESOURCE CONSERVATION MANAGER.BILINGUAL TEACHER Work Phone: [facility] Comment on above: Refill Request Start: 02-19-2022 Refill Pilar martinez RESOURCE CONSERVATION MANAGER.BILINGUAL TEACHER Work Phone: [facility] Comment on above: Refill Request Start: 01-16-2022 Refill Pilar Johnston juan RESOURCE CONSERVATION MANAGER.BILINGUAL TEACHER Work Phone: [facility] Comment on above: Refill Request Start: 01-01-2022 Refill Pilar Johnston juan RESOURCE CONSERVATION MANAGER.BILINGUAL TEACHER Work Phone: [facility] Comment on above: Refill Request Start: 08-24-2021 Chart Update Pilar Jade Preston el Work Phone: [facility] Work Phone: Start: 06-02-2021 End: 06-06-2021 ambulatory Darien Janas PA-C Work Phone: [facility] Comment on above: Status post total ri ght knee replacement (Primary Dx) Start: 05-30-2021 End: 06-03-2021 [facility] Start: 05-30-2021 End: 05-30-2021 ambulatory Copen Janas PA-C Work Phone: [facility] Comment on above: Status post total ri ght knee replacement (Primary Dx) Start: 05-28-2021 End: 06-01-2021 [facility] Start: 05-26-2021 End: 05-30-2021 [facility] Start: 05-26-2021 End: 05-26-2021 [facility] Comment on above: Status post total ri ght knee replacement (Primary Dx) Start: 05-23-2021 End: 05-27-2021 [facility] Start: 05-23-2021 End: 05-23-2021 ambulatory Darien Janas PA-C Work Phone: [facility] Comment on above: Status post total ri ght knee replacement (Primary Dx) Start: 05-21-2021 End: 05-25-2021 [facility] Start: 05-21-2021 End: 05-21-2021 ambulatory Copen Janas PA-C Work Phone: [facility] Comment on above: Status post total ri ght knee replacement (Primary Dx) Start: 05-19-2021 End: 05-23-2021 [facility] Start: 05-19-2021 End: 05-19-2021 ambulatory Darien Sethi PA-C Work Phone: [facility] Comment on above: Status post total ri ght knee replacement (Primary Dx) Start: 05-16-2021 End: 05-20-2021 [facility] Start: 05-16-2021 End: 05-16-2021 ambulatory Darien Sethi [facility]-C [facility] Comment on above: Status post total ri ght knee replacement (Primary Dx) Start: 05-15-2021 End: 05-19-2021 [facility] RINA ALAS [facility] Start: 05-15-2021 End: 05-15-2021 ambulatory Rina Alas MD [facility] Comment on above: Status post total ri ght knee replacement (Primary Dx) Start: 05-12-2021 End: 05-16-2021 [facility] Start: 05-12-2021 End: 05-12-2021 ambulatory Darien Setih PA-C Work Phone: [facility] Comment on above: Status post total ri ght knee replacement (Primary Dx) Start: 05-09-2021 End: 05-13-2021 [facility] Start: 05-09-2021 End: 05-09-2021 ambulatory Darien Sethi PA-C [facility] Comment on above: Status post total ri ght knee replacement (Primary Dx) Start: 05-07-2021 End: 05-11-2021 [facility] Start: 05-05-2021 End: 05-09-2021 [facility] Start: 05-05-2021 End: 05-05-2021 ambulatory Darien Janas PA-C [facility] Phone[facility] Comment on above: Status post total ri ght knee replacement (Primary Dx) Start: 05-02-2021 End: 05-06-2021 [facility] Start: 05-02-2021 End: 05-02-2021 ambulatory Darien Navdeep PA-C Work Phone: [facility] Comment on above: Status post total ri ght knee replacement (Primary Dx); Presence of right artificial knee joint Start: 05-01-2021 Transcribe Orders Darien Mustafaas PA-C Work Phone: [facility] Comment on above: Presence of right ar tificial knee joint (Primary Dx) Start: 04-25-2021 End: 04-29-2021 [facility] Start: 04-25-2021 End: 04-25-2021 ambulatory Darien Navdeep PA-C Work Phone: [facility] Comment on above: Status post total ri ght knee replacement (Primary Dx) Start: 04-23-2021 End: 04-27-2021 [facility] Start: 04-23-2021 End: 04-23-2021 ambulatory Darien Sethi PA-C Work Phone: [facility] Comment on above: Status post total ri ght knee replacement (Primary Dx) Start: 04-21-2021 End: 04-25-2021 [facility] Start: 04-21-2021 End: 04-21-2021 ambulatory Darien Navdeep PA-C Work Phone: [facility] Comment on above: Status post total ri ght knee replacement (Primary Dx) Start: 04-18-2021 End: 04-22-2021 [facility] Start: 04-16-2021 End: 04-20-2021 [facility] Start: 04-14-2021 End: 04-18-2021 [facility] Start: 04-11-2021 End: 04-15-2021 [facility] Start: 04-09-2021 End: 04-13-2021 [facility] Start: 04-07-2021 End: 04-11-2021 [facility] Start: 04-07-2021 End: 04-07-2021 ambulatory Copen Ramseyas PA-C Work Phone: [facility] Comment on above: Status post total ri ght knee replacement (Primary Dx) Start: 04-04-2021 End: 04-08-2021 [facility] Start: 04-04-2021 End: 04-04-2021 [facility] Comment on above: Status post total ri ght knee replacement (Primary Dx) Start: 04-02-2021 End: 04-06-2021 [facility] Start: 03-31-2021 End: 04-04-2021 [facility] Start: 03-31-2021 End: 03-31-2021 ambulatory Copen Ramseyas PA-C Work Phone: [facility] Comment on above: Status post total ri ght knee replacement (Primary Dx) Start: 03-26-2021 End: 03-30-2021 [facility] Start: 03-26-2021 End: 03-26-2021 ambulatory Copen Ramseyas PA-C Work Phone: [facility] Comment on above: Status post total ri ght knee replacement (Primary Dx) Start: 03-24-2021 End: 03-28-2021 [facility] Start: 03-24-2021 End: 03-24-2021 ambulatory Copen Ramseyas PA-C Work Phone: [facility] Comment on above: Status post total ri ght knee replacement (Primary Dx) Start: 03-21-2021 End: 03-25-2021 [facility] Start: 03-21-2021 End: 03-21-2021 ambulatory Darien Janas PA-C Work Phone: [facility] Comment on above: Status post total ri ght knee replacement (Primary Dx) Start: 03-19-2021 End: 03-23-2021 ambulatory [facility] Start: 03-19-2021 End: 03-19-2021 [facility] Work Phone: [facility] Comment on above: Status post total ri ght knee replacement (Primary Dx) Start: 03-17-2021 End: 03-21-2021 ambulatory [facility] Start: 03-12-2021 End: 03-16-2021 ambulatory [facility] Start: 03-12-2021 End: 03-12-2021 [facility] Work Phone: [facility] Comment on above: Status post total ri ght knee replacement (Primary Dx) Start: 03-10-2021 End: 03-14-2021 ambulatory [facility] Start: 03-04-2021 End: 03-08-2021 [facility] Start: 03-04-2021 End: 03-04-[address] [facility] JOHN Work Phone: [facility] Comment on above: Status post total ri ght knee replacement; History of arthroplasty of right knee Start: 02-11-2021 Transcribe Orders Josh Ferro PSA [facility] Comment on above: History of arthropla sty of right knee (Primary Dx) Start: 02-04-2021 End: 02-04-2021 Documentation procedure Clemencia Montes PT [facility] Start: 02-03-2021 End: 02-07-2021 ambulatory [facility] Start: 02-03-2021 End: 02-03-2021 ambulatory Mundo Schaeffer MD [facility] Comment on above: Primary osteoarthrit is of right knee (Primary Dx) Start: 01-29-2021 End: 02-02-2021 ambulatory MUNDO JACI [facility] Start: 01-29-2021 End: 01-29-2021 ambulatory Mundo Schaeffer MD Work Phone: [facility] Comment on above: Primary osteoarthrit is of right knee (Primary Dx) Start: 01-28-2021 End: 02-01-2021 ambulatory PROVID[facility] IN SYSTEM [facility] Start: 01-28-2021 End: 01-28-2021 ambulatory Provider Not In System [facility] Comment on above: Primary osteoarthrit is of right knee Start: 01-20-2021 End: 01-20-2021 Transcribe Orders Lisa Swartz PA-C Work [facility] Comment on above: Primary osteoarthrit is of right knee (Primary Dx) Procedures Date Procedure Procedure Detail Performing Clinician Start: 08-26-2023 Hepatic function 200 0 panel - Serum or Plasma PILAR FERRER Start: 08-26-2023 Lipid panel PILAR PURCELL Start: 08-26-2023 Lipid 1996 panel - S sindhu or Plasma Mo X-Ray Start: 03-04-2023 BMP - EXTERNAL [facility] Prov ider Start: 03-04-2023 BMP EXTERNAL QAI Shelton Ferrer APRN.BILINGUAL TEACHER Work Phone: Start: 03-04-2023 TSH BLD [facility] [...] - S sindhu or Plasma Pilar Ferrer RESOURCE CONSERVATION MANAGER.BILINGUAL TEACHER Work Phone: Start: 09-16-2022 Colonoscopy Pilar purcell RESOURCE CONSERVATION MANAGER.BILINGUAL TEACHER Work Phone: Start: 09-13-2018 Mammography Pilar purcell RESOURCE CONSERVATION MANAGER.BILINGUAL TEACHER Work Phone: Operative procedure on hip C no Jade Nabil Work Phone: Comment on above: Right 2010; Operative procedure on knee Pilar Ferrer Work Phone: Comment on above: Left 2016; Plan of Treatment Date Care Activity Detail Author Start: 09-16-2032 Colonoscopy COLONOSCOPY [facility] Start: 09-16-2032 COLORECTAL CANCER SCREENING COLORECTAL CANCER SCREENING [facility] Start: 09-16-2032 Screening for malign ant neoplasm of colon [facility] Start: 08-25-2028 Lipid panel Lipid Panel [facility] Start: 12-06-2027 Diabetes Screening Diabetes Screenwi g [facility] Start: 10-22-2027 Lipid 1996 panel - S sindhu or Plasma Lipid Screening [facility] Start: 10-22-2027 Lipid panel Lipid Screening [facility] Start: 10-22-2027 LIPID SCREEN LIPID SCREEN [facility] Start: 01-05-2027 Diabetes Screening Diabetes Screenin g [facility] Start: 11-29-2026 Diabetes Screening Diabetes Screenin g [facility] Start: 03-04-2026 Diabetes Screening Diabetes Screenin g [facility] Start: 01-11-2026 Annual PCP Team Dimension Quarry Supervisor delia Disease Visit Annual PCP Team Chronic Disease Visit [facility] Start: 12-05-2025 Annual PCP Team Dimension Quarry Supervisor delia Disease Visit Annual PCP Team Chronic Disease Visit [facility] Start: 12-05-2025 Complete blood count Hemoglobin/Pankaj tocrit [facility] Start: 12-05-2025 Creatinine measurement Serum Creatin ine [facility] Start: 12-05-2025 Medicare Annual Well ness Visit Medicare Annual Wellness Visit [facility] Start: 12-05-2025 zzBP Controlled (<13 0/80) (Retired) zzBP Controlled (<130/80) (Retired) [facility] Start: 04-19-2025 Annual PCP Team Dimension Quarry Supervisor delia Disease Visit Annual PCP Team Chronic Disease Visit [facility] Start: 04-19-2025 BP Controlled (<130/80) BP Controlle d (<130/80) [facility] Start: 04-16-2025 End: 04-16-2025 Patient encounter procedure 04/16/2025 9:40 AM EDT Office Visit [facility] [address] [place] [address] Pilar Ferrer, RESOURCE CONSERVATION MANAGER.BILINGUAL TEACHER [address] [place] [address] 3 MTH F/U HTN and Depression [facility] Comment on above: 3 MTH F/U HTN and De pression Start: 02-26-2025 Influenza vaccination [facility] Start: 02-21-2025 Annual PCP Team Dimension Quarry Supervisor delia Disease Visit Annual PCP Team Chronic Disease Visit [facility] Start: 02-21-2025 BP Controlled (<130/80) BP Controlle d (<130/80) [facility] Start: 02-21-2025 Covid-19 Vaccine (#1) Covid-19 Vacci ne (#1) [facility] Comment on above: Postponed from 09/07 (Declined at this time) Start: 02-21-2025 Covid-19 Vaccine ( season) Covid-19 Vaccine ( - season) [facility] Comment on above: Postponed from 02/26 (Declined at this time) Start: 02-21-2025 RSV Vaccine (1 - 1-d ose 60+ series) RSV Vaccine (1 - 1-dose 60+ series) [facility] Comment on above: Postponed from 09/07 (Declined at this time) Start: 02-21-2025 RSV Vaccine (1 - 1-d ose 75+ series) RSV Vaccine (1 - 1-dose 75+ series) [facility] Comment on above: Postponed from 09/07 (Declined at this time) Start: 02-21-2025 Shingrix Vaccine (1 of 2) Wills grix Vaccine (1 of 2) [facility] Comment on above: Postponed from 09/07 (Declined at this time) Postponed from 09/07 (Declined at this time) Start: 02-21-2025 Urine microalbumin profile DTa P,Tdap,Td Vaccine (1 - Tdap) [facility] Comment on above: Postponed from 09/07 (Declined at this time) Start: 02-06-2025 LIPID SCREEN LIPID SCREEN [facility] Start: 01-11-2025 End: 01-11-2025 Patient encounter procedure 01/11/2025 9:40 AM EDT Office Visit [facility] [address] [place] [address] Pilar Ferrer, RESOURCE CONSERVATION MANAGER.BILINGUAL TEACHER [address] [place] [address] depression [facility] Comment on above: depression Start: 01-05-2025 Complete blood count Hemoglobin/Pankaj tocrit [facility] Start: 01-05-2025 Creatinine measurement Serum Creatin ine [facility] Start: 01-04-2025 End: 01-04-2025 Patient encounter procedure 01/04/2025 9:40 AM EDT Office Visit [facility] [address] [place] [address] Pilar Ferrer, RESOURCE CONSERVATION MANAGER.BILINGUAL TEACHER [address] [facility] [place] [address] depression [facility] Comment on above: depression Start: 12-05-2024 End: 03-06-2025 Hemoglobin A1c in Blood [facility] Work Phone: Comment on above: Expected: 12/05/2024 , Expires: 03/06/2025 Start: 12-05-2024 End: 12-05-2024 Patient encounter procedure 12/05/2024 10:00 AM EDT Office Visit [facility] [address] [facility] [place] [address] Pilar Ferrer, RESOURCE CONSERVATION MANAGER.BILINGUAL TEACHER [address] [place], [place] [id number] medicare wellness [facility] Comment on above: medicare wellness Start: 11-29-2024 Annual PCP Team Dimension Quarry Supervisor delia Disease Visit Annual PCP Team Chronic Disease Visit [facility] Start: 11-29-2024 BP Controlled (<130/80) BP Controlle d (<130/80) [facility] Start: 11-29-2024 Complete blood count Hemoglobin/Pankaj tocrit [facility] Start: 11-29-2024 Creatinine measurement Serum Creatin ine [facility] Start: 03-04-2024 Creatinine measurement Serum Creatin ine [facility] Start: 02-27-2024 Covid-19 Vaccine ( season) Covid-19 Vaccine ( season) [facility] Start: 02-27-2024 Influenza vaccination C [facility] Start: 11-30-2023 End: 11-30-2023 Patient encounter procedure 11/30/2023 10:00 AM EDT Office Visit [facility] [address] [place] [address] Pilar Ferrer, RESOURCE CONSERVATION MANAGER.[facility] [address] [place] [address] Medicare wellness [facility] Comment on above: Medicare wellness Start: 10-22-2023 Complete blood count Hemoglobin/Pankaj tocrit [facility] Start: 10-22-2023 HEMOGLOBIN/HEMATOCRIT HEMOGLOBIN/HEM ATOCRIT [facility] Start: 10-01-2023 ANNUAL PCP TEAM EVENT ORGANIZER DELIA DISEASE VISIT ANNUAL PCP TEAM CHRONIC DISEASE VISIT [facility] Start: 08-05-2023 ANNUAL PCP TEAM EVENT ORGANIZER DELIA DISEASE VISIT ANNUAL PCP TEAM CHRONIC DISEASE VISIT [facility] Start: 08-05-2023 BP CONTROLLED (<130/80) BP CONTROLLE D (<130/80) [facility] Start: 08-05-2023 COVID-19 VACCINE (#1) COVID-19 VACCI NE (#1) [facility] Comment on above: Postponed from 03/10 (Declined at this time) Start: 05-04-2023 ANNUAL PCP TEAM EVENT ORGANIZER DELIA DISEASE VISIT ANNUAL PCP TEAM CHRONIC DISEASE VISIT [facility] Start: 05-04-2023 BP CONTROLLED (<130/80) BP CONTROLLE D (<130/80) [facility] Start: 02-26-2023 Covid-19 Vaccine () Covid-19 Vaccine () [facility] Start: 02-26-2023 DIABETES SCREEN DIABETES SCREEN [facility] Start: 02-26-2023 Diabetes Screening Diabetes Screenin g [facility] Start: 02-26-2023 Influenza vaccination [facility] Start: 01-04-2023 End: 03-06-2023 Basic metabolic 2000 panel - Serum or Plasma BASIC METABOLIC PNL Lab Routine Elevated serum creatinine Expected: 01/04/2023, Expires: 03/06/2023 [facility] Work Phone: Comment on above: Expected: 01/04/2023 , Expires: 03/06/2023 Start: 01-04-2023 End: 03-06-2023 Thyrotropin [Units/volume] in Serum or Plasma TSH BLD Lab Routine Elevated TSH Abnormal thyroid function test Expected: 01/04/2023, Expires: 03/06/2023 [facility] Work Phone: Comment on above: Expected: 01/04/2023 , Expires: 03/06/2023 Start: 01-04-2023 End: 03-06-2023 Thyroxine (T4) free [Mass/volume] in Serum or Plasma T4 FREE/FREE THYROX Lab Routine Elevated TSH Abnormal thyroid function test Expected: 01/04/2023, Expires: 03/06/2023 [facility] Work Phone: Comment on above: Expected: 01/04/2023 , Expires: 03/06/2023 Start: 12-25-2022 Influenza vaccination INFLUENZA (#1) [facility] Comment on above: Postponed from 02/26 (Declined at this time) Start: 09-30-2022 End: 11-30-2022 25-hydroxyvitamin D3 [Mass/volume] in Serum or Plasma VITAMIN D 25 HYDROXY Lab Routine Vitamin D deficiency Expected: 09/30/2022, Expires: 11/30/2022 [facility] Work Phone: Comment on above: Expected: 09/30/2022 , Expires: 11/30/2022 Start: 09-30-2022 End: 11-30-2022 CBC panel - Blood by Automated count CBC Lab Routine Primary hypertension Expected: 09/30/2022, Expires: 11/30/2022 [facility] Work Phone: Comment on above: Expected: 09/30/2022 , Expires: 11/30/2022 Start: 09-30-2022 End: 11-30-2022 Comprehensive metabolic 2000 panel - Serum or Plasma COMP METABOLIC PANEL Lab Routine Primary hypertension Expected: 09/30/2022, Expires: 11/30/2022 [facility] Work Phone: Comment on above: Expected: 09/30/2022 , Expires: 11/30/2022 Start: 09-30-2022 End: 11-30-2022 Lipid 1996 panel - Serum or Plasma LIPID PANEL BASIC Lab Routine Mixed hyperlipidemia Expected: 09/30/2022, Expires: 11/30/2022 [facility] Work Phone: Comment on above: Expected: 09/30/2022 , Expires: 11/30/2022 Start: 09-30-2022 End: 11-30-2022 Thyrotropin [Units/volume] in Serum or Plasma TSH BLD Lab Routine Screening for thyroid disorder Expected: 09/30/2022, Expires: 11/30/2022 [facility] Work Phone: Comment on above: Expected: 09/30/2022 , Expires: 11/30/2022 Start: 09-07-2022 RSV High Risk: (Elde rly (60+) or Population) (1 - 1-dose 75+ series) RSV High Risk: (Elderly (60+) or Population) (1 - 1-dose 75+ series) [facility] Start: 08-19-2022 End: 10-19-2022 Urinalysis complete panel - Urine URINALYSIS WITH MICROSCOPIC, REFLEX CULTURE Lab Routine Microscopic hematuria Expected: 08/19/2022, Expires: 10/19/2022 [facility] Work Phone: Comment on above: Expected: 08/19/2022 , Expires: 10/19/2022 Start: 06-28-2022 ADVANCE DIRECTIVE DISCUSSION ADVANCE DIRECTIVE DISCUSSION [facility] Start: 05-14-2022 ANNUAL PCP TEAM EVENT ORGANIZER DELIA DISEASE VISIT ANNUAL PCP TEAM CHRONIC DISEASE VISIT [facility] Start: 05-14-2022 BP CONTROLLED (<130/80) BP CONTROLLE D (<130/80) [facility] Start: 05-14-2022 COVID-19 VACCINE (#1) COVID-19 VACCI NE (#1) [facility] Comment on above: Postponed from 09/07 (Declined at this time) Postponed from 03/10 (Declined at this time) Start: 02-26-2022 Influenza vaccination INFLUENZA (#1) [facility] Start: 06-28-2021 ADVANCE DIRECTIVE DISCUSSION ADVANCE DIRECTIVE DISCUSSION [facility] Start: 06-02-2021 End: 06-02-2021 ambulatory 06/02/2021 Treatment Rehabilitation Darien Sethi PA-C [address] [place], [place] [id number] Tanja Mcdonald [facility] Start: 05-30-2021 End: 05-30-2021 ambulatory 05/30/2021 Treatment Rehabilitation Darien Sethi PA-C [address] [place], [place] [address] Wilbert Palomares [facility] Start: 05-28-2021 End: 05-28-2021 ambulatory 05/28/2021 Treatment Rehabilitation Darien Sethi PA-C [address] [place] [address] Tanja Mcdonald [facility] Start: 05-26-2021 End: 05-26-2021 ambulatory 05/26/2021 Treatment Rehabilitation Darien Sethi PA-C [address] [place], [place] [id number] Tanja Mcdonald [facility] Start: 05-23-2021 End: 05-23-[address] [facility] Start: 05-21-2021 End: 05-21-2021 ambulatory 05/21/2021 Treatment Rehabilitation Darien Sethi PA-C [address] [place] [address] Georgi Coughlin [facility] Start: 05-19-2021 End: 05-19-2021 ambulatory 05/19/2021 Treatment Rehabilitation Darien Sethi PA-C [address] [place] [address] [facility] Start: 05-16-2021 End: 05-16-2021 ambulatory 05/16/2021 Treatment Rehabilitation Darien Sethi PA-C [address] [place] [address] Tanja Mcdonald [facility] Start: 05-14-2021 End: 05-14-2021 ambulatory 05/14/2021 Treatment Rehabilitation Darien Sethi PA-C [address] [place] [address] Wilbert Palomares [facility] Start: 05-12-2021 End: 05-12-2021 ambulatory 05/12/2021 Treatment Rehabilitation Darien Sethi PA-C [address] [place] [address] Tanja Mcdonald [facility] Start: 05-09-2021 End: 05-09-2021 ambulatory 05/09/2021 Treatment Rehabilitation Darien Sethi PA-C [address] [place] [address] Wilbert Palomares [facility] Start: 05-07-2021 End: 05-07-2021 ambulatory 05/07/2021 Treatment Rehabilitation Darien Sethi PA-C [address] [place] [address] Wilbert Palomares [facility] Start: 05-05-2021 End: 05-05-2021 ambulatory 05/05/2021 Treatment Rehabilitation Darien Sethi PA-C [address] [place] [address] Clemencia Montes, PT [facility] Start: 05-02-2021 End: 05-02-2021 ambulatory 05/02/2021 Treatment Rehabilitation Darien Sethi PA-C [address] [place] [address] Wilbert Palomares PTA [facility] Start: 04-25-2021 End: 04-25-2021 ambulatory 04/25/2021 Treatment Rehabilitation Darien Sethi PA-C [address] [place] [address] Tanja Mcdonald PTA [facility] Start: 04-23-2021 End: 04-23-2021 ambulatory 04/23/2021 Treatment Rehabilitation Darien Sethi PA-C [address] [place] [address] Tanja Mcdonald [facility] Start: 04-09-2021 End: 04-09-[address] [facility] Start: 04-07-2021 End: 04-07-[address] [facility] Start: 04-04-2021 End: 04-04-[address] [facility] Start: 04-02-2021 End: 04-02-[address] [facility] Start: 03-31-2021 End: 03-31-[address] [facility] Start: 03-26-2021 End: 03-26-[address] [facility] Start: 03-24-2021 End: 03-24-[address] [facility] Start: 03-21-2021 End: 03-21-2021 ambulatory 03/21/2021 Treatment Rehabilitation Darien Sethi PA-C [address] [place] [address] Tanja Mcdonald [facility] Start: 03-19-2021 End: 03-19-2021 ambulatory 03/19/2021 Treatment Rehabilitation Darien Sethi PA-C [address] [place] [address] Tanja Mcdonald [facility] Start: 03-17-2021 End: 03-17-[address] [facility] Start: 03-12-2021 End: 03-12-2021 ambulatory 03/12/2021 Treatment Rehabilitation Darien Sethi PA-C [address] [place] [address] Clemencia Montes, PT [facility] Start: 03-10-2021 End: 03-10-2021 ambulatory 03/10/2021 Treatment Rehabilitation Darien Sethi PA-C [address] [place] [address] Tanja Mcdonald [facility] Start: 03-06-2021 End: 03-06-2021 ambulatory 03/06/2021 Treatment Rehabilitation Darien Sethi PA-C [address] [place] [address] Georgi Coughlin [facility] Start: 03-04-2021 End: 03-04-2021 ambulatory 03/04/2021 Evaluation Rehabilitation Darien Sethi PA-C [address] [place] [address] Clemencia Montes, PT [facility] Start: 02-26-2021 Creatinine measurement Serum Creatin ine [facility] Start: 02-26-2021 Influenza vaccination Sequenti al Influenza Vaccine (#1) [facility] Start: 02-26-2021 SERUM CREATININE SERUM CREATININE Cl [facility] Start: 02-24-2021 End: 02-24-2021 ambulatory 02/24/2021 Treatment Rehabilitation Mundo Schaeffer MD [address] [place] [address] [phone] System, Provider Not In Wilbert Palomares PTA [facility] Start: 02-19-2021 End: 02-19-2021 ambulatory 02/19/2021 Treatment Rehabilitation Mundo Schaeffer MD [address] [place] [address] [phone] System, Provider Not In Wilbert Palomares PTA [facility] Start: 02-17-2021 End: 02-17-2021 ambulatory 02/17/2021 Treatment Rehabilitation Mundo Schaeffer MD [address] [place] [address] [phone] System, Provider Not In Tanja Mcdonald PTA [facility] Start: 02-12-2021 End: 02-12-2021 ambulatory 02/12/2021 Treatment Rehabilitation Mundo Schaeffer MD [address] [place] [address] [phone] System, Provider Not In Wilbert Palomares P[facility] Start: 02-10-2021 End: 02-10-2021 ambulatory 02/10/2021 Treatment Rehabilitation Mundo Schaeffer MD [address] [place] [address] [phone] System, Provider Not In Wilbert Palomares PTA [facility] Start: 02-06-2021 HEMOGLOBIN/HEMATOCRIT HEMOGLOBIN/HEM ATOCRIT [facility] Start: 02-05-2021 End: 02-05-2021 ambulatory 02/05/2021 Treatment Rehabilitation Mundo Schaeffer MD [address] [place] [address] [phone] System, Provider Not In Wilbert Palomares PTA [facility] Start: 02-03-2021 End: 02-03-2021 ambulatory 02/03/2021 Treatment Rehabilitation Mundo Schaeffer MD [address] [place] [address] [phone] System, Provider Not In Wilbert Palomares PTA [facility] Start: 01-29-2021 End: 01-29-2021 ambulatory 01/29/2021 Treatment Rehabilitation Mundo Schaeffer MD [address] [place] [address] [phone] System, Provider Not In Tanja Mcdonald PTA [facility] Start: 01-28-2021 End: 01-28-2021 ambulatory 01/28/2021 Evaluation Rehabilitation System, Provider Not In Clemencia Montes PT [facility] Start: 09-14-2019 Mammography MAMMOGRAM [facility] Start: 09-07-2012 Fall risk assessment Falls Risk Asse ssment [facility] Start: 09-07-2012 Pneumococcal Vaccine : Age 65+ (1 of 1 - PPSV23) Pneumococcal Vaccine: Age 65+ (1 of 1 - PPSV23) [facility] Start: 2007 RSV Vaccine (1 - 1-d ose 60+ series) RSV Vaccine (1 - 1-dose 60+ series) [facility] Start: 09-07-1997 Administration of he rpes zoster vaccine Zoster Vaccines (1 of 2) [facility] Start: 09-07-1997 Screening for malign ant neoplasm of colon [facility] Start: 09-07-1997 SHINGRIX VACCINE (1 of 2) WILLS GRIX VACCINE (1 of 2) [facility] Start: 09-07-1997 Zoster Vaccines (1 of 2) Zoste r Vaccines (1 of 2) [facility] Start: 09-07-1992 COLOGUARD (FIT-DNA) COLOGUARD (FIT-D NA) [facility] Start: 09-07-1992 Colonoscopy COLONOSCOPY [facility] Start: 09-07-1992 COLORECTAL CANCER SCREENING COLORECTAL CANCER SCREENING [facility] Start: 09-07-[address] COLONOGRAPHY [facility] Start: 09-07-1992 FECAL OCCULT BLOOD FECAL OCCULT BLOO D [facility] Start: 09-07-1992 Screening for malign ant neoplasm of colon [facility] Start: 09-07-1992 SIGMOIDOSCOPY SIGMOIDOSCOPY [facility] Start: 1987 Screening for malign ant neoplasm of breast Mammogram [facility] Start: 09-07-1969 DTaP/Tdap/Td Vaccine s (1 - Tdap) DTaP/Tdap/Td Vaccines (1 - Tdap) [facility] Start: 09-07-1966 SHINGRIX VACCINE (1 of 2) WILLS GRIX VACCINE (1 of 2) [facility] Start: 09-07-1966 Urine microalbumin profile [facility] Start: 09-07-1966 Urine screening for protein CKD: Urine Protein Screening [facility] Start: 09-07-1965 Hepatitis C screening Hepatitis C [facility] Start: 09-07-1965 HEPATITIS C SCREENING HEPATITIS C [facility] Start: 1959 COVID-19 Vaccine (1) COVID-19 Vaccin e (1) [facility] Start: 1959 Depression screening using PHQ-9 (Patient Health Questionnaire 9) score [facility] Start: 09-07-1958 Screening for malign ant neoplasm of cervix Cervical Cancer Screening [facility] Start: 09-07-1950 History and physical examination, annual for health maintenance Wellness Visit [facility] Start: 03-10-1948 COVID-19 VACCINE (#1) COVID-19 VACCI NE (#1) [facility] Start: 1947 Medicare Annual Well ness Visit Medicare Annual Wellness Visit (AWV) [facility] Start: 1947 Physical therapy management PT Plan of Care [facility] Start: 1947 Screening for osteoporosis [facility] Start: 1947 Tetanus vaccination Tetanus: Every 1 0yrs [facility] End: 12-29-2024 DXA Skeletal system.axial Views for bone density DXA-AXIAL SKELETON Radiology Routine Post-menopausal 1 Occurrences starting 11/30/2023 until 12/29/2024 [facility] Work Phone: Comment on above: 1 Occurrences starti ng 11/30/2023 until 12/29/2024 End: 10-01-2023 Echocardiography ECHO Cardiology Routine Mild aortic stenosis 1 Occurrences starting 09/30/2022 until 10/01/2023 [facility] Work Phone: Comment on above: 1 Occurrences starti ng 09/30/2022 until 10/01/2023 End: 10-30-2023 ROSA ISELA SCREENING ROSA ISELA SCREENING Radiology Routine Encounter for screening mammogram for malignant neoplasm of breast 1 Occurrences starting 09/30/2022 until 10/30/2023 [facility] Work Phone: Comment on above: 1 Occurrences starti ng 09/30/2022 until 10/30/2023 End: 12-29-2024 MG Breast Screening ROSA ISELA SCREENING Radiology Routine Encounter for screening mammogram for malignant neoplasm of breast 1 Occurrences starting 11/30/2023 until 12/29/2024 [facility] Comment on above: 1 Occurrences starti ng 11/30/2023 until 12/29/2024 NM Heart Views W str ess and W radionuclide IV [facility] End: 10-30-2023 US CAROTID BILATERAL US CAROTID BILATERAL Radiology Routine Left carotid bruit 1 Occurrences starting 09/30/2022 until 10/30/2023 [facility] Work Phone: Comment on above: 1 Occurrences starti ng 09/30/2022 until 10/30/2023 US Heart [facility] End: 06-05-2024 XR Ankle - right 3 Views [facility] Work Phone: Comment on above: Once for 1 Occurrenc es starting 06/05/2024 until 06/05/2024 End: 12-29-2024 XR Clavicle - left 2 Views XR CLAVICLE 2V LEFT Radiology Routine Acquired clavicle deformity 1 Occurrences starting 11/30/2023 until 12/29/2024 [facility] Comment on above: 1 Occurrences starti ng 11/30/2023 until 12/29/2024 XR Clavicle - left 2 Views XR CL AVICLE 2V LEFT Radiology Routine Acquired clavicle deformity 11/30/2023 11:15 AM EDT [facility] End: 12-29-2024 XR Clavicle - right 2 Views XR CLAVICLE 2V RIGHT Radiology Routine Acquired clavicle deformity 1 Occurrences starting 11/30/2023 until 12/29/2024 [facility] Comment on above: 1 Occurrences starti ng 11/30/2023 until 12/29/2024 XR Clavicle - right 2 Views XR CLAVICLE 2V RIGHT Radiology Routine Acquired clavicle deformity 11/30/2023 11:15 AM EDT [facility] End: 06-05-2024 XR Foot - right 3 Views [facility] Work Phone: Comment on above: Once for 1 Occurrenc es starting 06/05/2024 until 06/05/2024 [facility] Immunizations Immunization Date Immunization Notes Care Provider Isaac [facility] 05-14-2021 influenza, high-dose , quadrivalent vaccine (FLUZONE HIGH DOSE QUADRIVALENT) Pilar Ferrer APRN.[facility] Work Phone: [facility] 05-14-2021 influenza virus vacc ine, unspecified formulation Pilar Ferrer RESOURCE CONSERVATION MANAGER.BILINGUAL TEACHER Work Phone: [facility] 06-02-2020 influenza, high-dose , quadrivalent vaccine (FLUZONE HIGH DOSE QUADRIVALENT) Donell Olivera RESOURCE CONSERVATION MANAGER.BILINGUAL TEACHER Work Phone: [facility] Work Phone: 02-07-2020 pneumococcal polysaccharide vaccine, 23 valent Pilar Ferrer RESOURCE CONSERVATION MANAGER.BILINGUAL TEACHER Work Phone: [facility] 04-14-2019 influenza, injectabl e, quadrivalent, preservative free Pilar Nabil RESOURCE CONSERVATION MANAGER.BILINGUAL TEACHER Work Phone: [facility] Work Phone: 08-30-2018 pneumococcal conjuga te vaccine, 13 valent Pilar Nabil RESOURCE CONSERVATION MANAGER.BILINGUAL TEACHER Work Phone: [facility] Payers Date Payer Category Payer Self-pay [id number] 2013 Medicare supplementa l policy (as second payer) [employer] MEDICARE SUPPLEMENT [id number] .[id number] 5 2013 Private Health Insurance [id number] .[id number] .2.7.3.779156.315 2013 Unknown [id number] 1.2.840.454525.1.13.385 .2.7.3.381330.315 2013 Private Health Insurance [id number] 2012 Medicare MEDICARE MEDICAR E PART A & B [id number] 2012-Present [place] [id number] .2.7.3.982346.315 2012 Medicare [id number] 1.2.840.003355.1.13.385 .2.7.3.245709.315 2012 Medicare 1.2.840.060380. 1.13.385 .2.7.3.049861.315 2012 Medicare [id number] 1945 Unknown [id number] 2.16.840.1.378942.3.579 .2.903 1945 Unknown [id number] 2.16.840.1.758447.3.579 .2.903 1945 Unknown [id number] 2.16.840.1.299827.3.579 .2.3 1945 Unknown [id number] 2.16.840.1.568270.3.579 .2. 1945 Unknown [id number] 2.16.840.1.348575.3.579 .2 1945 Unknown [id number] 2.16.840.1.807333.3.579 .2. 1945 Unknown [id number] 2.16.840.1.115029.3.579 .2. 1945 Unknown [id number] 2.16.840.1.392485.3.579 .2 1945 Unknown [id number] 2.16.840.1.275951.3.579 .2 1945 Unknown [id number] 2.16840.1.254731.3.579 .2 1945 Unknown [id number] 2.16.840.1.111370.3.579 .2 1945 Unknown [id number] 2.16.840.1.581885.3.579 .2 1945 Unknown [id number] 2.16.840.1.205758.3.579 .2. 1945 Unknown [id number] 2.16.840.1.971264.3.579 .2. 1945 Unknown [id number] 2.16.840.1.930591.3.579 .2. 1945 Unknown [id number] 2.16.840.1.869064.3.579 .2. 1945 Unknown [id number] 2.16.840.1.157151.3.579 .2. 1945 Unknown [id number] 2.16.840.1.570025.3.579 .2 1945 Unknown [id number] 2.16.840.1.169824.3.579 .2.903 1945 Unknown [id number] 2.16.840.1.549891.3.579 .2.3 1945 Unknown [id number] 2.16.840.1.911416.3.579 .2.3 1945 Unknown [id number] 2.16.840.1.488725.3.579 .2. 1945 Unknown [id number] 2.16.840.1.215301.3.579 .2. 1945 Unknown [id number] 2.16.840.1.877923.3.579 .2 1945 Unknown [id number] 2.16.840.1.604724.3.579 .2. 1945 Unknown [id number] 2.16.840.1.059274.3.579 .2. 1945 Unknown [id number] 2.16.840.1.119151.3.579 .2. 1945 Unknown [id number] 2.16.840.1.152837.3.579 .2.3 1945 Unknown [id number] 2.16.840.1.018134.3.579 .2. 1945 Unknown [id number] 2.16.840.1.671188.3.579 .2. 1945 Unknown [id number] 2.16.840.1.337191.3.579 .2. 1945 Unknown [id number] 2.16.840.1.860459.3.579 .2. 1945 Unknown [id number] 2.16.840.1.935292.3.579 .2. 1945 Unknown [id number] 2.16.840.1.875022.3.579 .2.903 1947 Unknown [id number] 2.16.840.1.847270.3.579 .2. 1945 Unknown [id number] 2.16.840.1.561587.3.579 .2.3 1947 Unknown [id number] 2.16.840.1.748782.3.579 .2.3 1945 Unknown [id number] 2.16.840.1.376352.3.579 .2.1068 1947 Unknown [id number] 2.16.840.1.446477.3.579 .2.1068 1947 Unknown [id number] 2.16.840.1.755304.3.579 .2.1068 1947 Unknown [id number] 2.840.1.152508.3.579 .2.1242 1947 Unknown [id number] 2.840.1.318044.3.579 .2.1242 1947 Unknown [id number] 2.16840.1.532034.3.579 .2.1242 1947 Unknown [id number] 2.16.840.1.924278.3.579 .2.1244 1947 Unknown [id number] 2.16.840.1.629881.3.579 .2.1244 1947 Unknown [id number] 2.16.840.1.797001.3.579 .2.124 1947 Unknown [id number] 2.16.840.1.566764.3.579 .2.124 Unknown Unknown [id number] 2.16.840.1.835263.3.579 .2.462 Unknown [id number] 2.16840.1.001046.3.579 .2.462 Unknown [id number] 2.16.840.1.105483.3.579 .2.462 Unknown [id number] 2.16.840.1.643004.3.579 .2.462 Unknown [id number] 2.16.840.1.206832.3.579 .2.462 Unknown [id number] 2.16.840.1.362995.3.579 .2.462 Unknown [id number] 2.16.840.1.341006.3.579 .2.462 Unknown [id number] 2.16.840.1.958980.3.579 .2.462 Unknown [id number] 2.16.840.1.975033.3.579 .2.462 Unknown [id number] 2.16.840.1.825862.3.579 .2.462 Social History Date Type Detail Facility Assertion Tobacco smoking consumption unknown (finding) [facility] Work Phone: Start: 08-20-2014 End: 02-22-2024 Tobacco smoking status NHIS Former smoker [facility] Start: 08-20-2014 End: 01-11-2025 Alcohol intake Current non-drinker of alcohol (finding) [facility] Start: 1945 Sex Assigned At Not on file O [facility] Start: 04-24-2022 End: 06-05-2024 Exposure to SARS-CoV-2 (event) Not sure [facility] Start: 03-03-2012 End: 11-30-2023 Former smoker Former smoker [facility] Start: 06-28-1972 End: 06-28-1980 History of tobacco use Current smoker [facility] Start: 03-03-2012 End: 02-22-2024 Tobacco use and exposure Smokeless tobacco non-user [facility] Start: 03-03-2012 End: 02-22-2024 Tobacco Comment No one in household smokes [facility] Start: 06-28-1972 End: 06-28-1980 History of tobacco use Cigarette Smoker [facility] Start: 09-30-2022 End: 11-30-2023 Tobacco use panel [facility] Adult Depression Screening Assessment 0 [facility] Start: 01-05-2023 Tobacco smoking stat us NHIS Unknown if ever smoked [facility] Start: 1945 Sex Assigned At Female W [facility] Has the [employer] [place] [employer], [employer], or [employer] company threatened to shut off services in your home in past 12Mo No [facility] Are you now , , , , never or living with a partner? [facility] How often to you hav e a drink containing alcohol? Never [facility] Do you feel stress - tense, restless, nervous, or anxious, or unable to sleep at night because your mind is troubled all the time - these days [OSQ] To some extent [facility] (I/We) worried nena er (my/our) food would run out before (I/we) got money to buy more. Never true [facility] How hard is it for y ou to pay for the very basics like food, housing, medical care, and heating Somewhat hard [facility] Functional Status Date Assessment Result Facility 12-05-2024 Total score [AUDIT-C] 0 12/06/19 25 9:38 AM Daphne Lal MA [facility] 11-15-2014 Are you deaf, or do you have serious difficulty hearing No 11/15/2014 1:42 PM Priscilla Card Ma [facility] 11-15-2014 Are you blind, or do you have serious difficulty seeing, even when wearing glasses No 11/15/2014 1:42 PM Priscilla Card Ma [facility] 11-15-2014 Do you have serious difficulty walking or climbing stairs No 11/15/2014 1:42 PM Priscilla Card Ma [facility] 11-15-2014 Do you have difficul ty dressing or bathing No 11/15/2014 1:42 PM Priscilla Card Ma [facility] 11-15-2014 Because of a physica l, mental, or emotional condition, do you have difficulty doing errands alone such as visiting a physician's office or shopping No 11/15/2014 1:42 PM Priscilla Card Ma [facility] NEGATED: Highlighted row Functional performance Functional status health issues are not documented Disease [facility] Work Phone: Mental Status Date Assessment Result Facility 11-15-2014 Because of a physical, mental, or emotional condition, do you have serious difficulty concentrating, remembering, or making decisions No 11/15/2014 1:42 PM EDT Lisette BeckPriscilla [facility] NEGATED: Highlighted row Cognitive function [Interpretation] Cognitive status health issues are not documented Disease [facility] Work Phone: Clinical Notes 01-13-2021 to 01-16-2025 Telephone Encounter - Michelle Arzate MA - 01/16/2025 7:32 AM EDTTelephone Encounter - Michelle Arzate MA - 01/16/2025 7:32 AM EDTTelephone Encounter - Daphne Guevara MA - 12/15/2024 2:07 PM EDT Note Date & Type Note Facility 01-16-2025 Telephone encounter Note Pharmacy requesting refills as follows: Last Office Visit 01/11/25 04/16/25. Last Refill 12/05/24. Requested Prescriptions Pending Prescriptions Disp Refills venlafaxine (EFFEXOR) 75 mg tablet [Pharmacy Med Name: Venlafaxine HCl 75 MG Oral Tablet] 90 tablet 0 Sig: Take 1 tablet by mouth once daily Please review and advise. Michelle Arzate MA [facility] 01-16-2025 Miscellaneous Notes Pharmacy requesting refills as follows: Last Office Visit 01/11/25 04/16/25. Last Refill 12/05/24. Requested Prescriptions Pending Prescriptions Disp Refills venlafaxine (EFFEXOR) 75 mg tablet [Pharmacy Med Name: Venlafaxine HCl 75 MG Oral Tablet] 90 tablet 0 Sig: Take 1 tablet by mouth once daily Please review and advise. Michelle Arzate MA documented in this encounter [facility] 01-11-2025 Note HNO ID: [id number] Author: PILAR FERRER APRN.BILINGUAL TEACHER Service: ? Author Type: Nurse Practitioner Type: Progress Notes Filed: 01/11/2025 10:47 Note Text: Recording using [employer] software for draft documentation of the visit was discussed with the patient/authorized union contract representative; all questions welcomed and answered. Patient/authorized union contract representative agreed to proceed This note was created using [employer]. Subjective Brandon Muro is a 79 year old female here today for follow up on her depression. At last ov 12/05/24 I started her on wellbutrin 150 mg daily and continued her on effexor 75 mg twice daily Depression: - Started on Wellbutrin 150 mg daily approximately 4 weeks ago. - Reports minimal improvement in depressive symptoms. - Accidentally discarded a 30-day refill of Wellbutrin; has enough medication to last until next week. - Denies interest in counseling. - Currently taking Effexor 75 mg twice daily - No issues tolerating Wellbutrin. Chronic Cough: - Chronic cough, no recent changes. Leg Laceration: - Sustained a laceration on the leg after colliding with a wheelchair at work last night. - Nurse at work applied a bandage; no further treatment sought. ALLERGIES Allergen Reactions Adhesive Rash Celecoxib Other: See Comments Mold Unknown Pitavastatin Other: See Comments Drug induced lupus. Sulfa (Sulfonamide * Unknown Took for bladder infection and infection became worse. Tape [Adhesive Tape* Rash Vicodin [Hydrocodon* GI Upset Current Outpatient Medications Medication Sig Dispense Refill cetirizine (ZYRTEC) 10 mg tablet Take 1 tablet by mouth once daily 90 tablet 0 hydroCHLOROthiazide 12.5 mg tablet Take 1 tablet by mouth once daily 90 tablet 1 venlafaxine (EFFEXOR) 75 mg tablet Take 1 tablet by mouth two times a day. 180 tablet 1 losartan (COZAAR) 100 mg tablet Take 1 tablet by mouth once daily 90 tablet 1 amLODIPine (NORVASC) 5 mg tablet Take 1 tablet by mouth once daily 90 tablet 3 traMADol (ULTRAM) 50 mg tablet Take 50 mg by mouth three times a day as needed. omeprazole (PRILOSEC) 40 mg capsule Take 1 capsule by mouth once daily. 90 capsule 3 albuterol HFA (PROVENTIL HFA, VENTOLIN HFA) 90 mcg/actuation inhaler Inhale 2 Puffs as instructed every 4 hours as needed for wheezing/shortness of breath. 1 Each 5 hydrOXYchloroQUINE (PLAQUENIL) 200 mg tablet Take 200 mg by mouth two times a day. buPROPion XL (WELLBUTRIN XL) 300 mg 24 hr tablet Take 1 tablet by mouth once daily. 90 tablet 1 predniSONE (DELTASONE) 20 mg tablet Take 2 tablets by mouth once daily. (Patient not taking: Reported on 01/11/2025) 10 tablet 0 No current facility-administered medications for this visit. ACTIVE PROBLEM LIST Chronic Cough Allergic Rhinitis Hyperlipidemia Hypertension Abnormal Ecg Mild Aortic Stenosis Obesity (Bmi 35.0-39.9 Without Comorbidity) Anxiety and Depression Stage 3 Chronic Kidney Disease (Hcc) PAST MEDICAL HISTORY Diagnosis Date Allergic rhinitis [...] date: 06/28/1972 Quit date: 06/28/1980 Years since quittin.5 Smokeless tobacco: Never Tobacco comments: No one in household smokes Vaping Use Vaping status: Never Used Substance Use Topics Alcohol use: No Drug use: No Family History Problem Relation Age of Onset Hypertension Mother Cancer Mother Skin Diabetes Mother Hypertension Father Cancer Father Skin COPD Father Heart Father Diabetes Sister Hypertension Brother Hypertension Sister . Review of Systems Constitutional: Negative for chills, diaphoresis, fatigue and fever. Respiratory: Positive for cough. Negative for shortness of breath and wheezing. Cardiovascular: Negative for chest pain, palpitations and leg swelling. Neurological: Negative for dizziness, facial asymmetry and headaches. Psychiatric/Behavioral: Positive for dysphoric mood. Negative for sleep disturbance. The patient is not nervous/anxious. See hpi Respiratory: (+) chronic cough Skin: (+) leg laceratio (more content not included)... [facility] 12-15-2024 Telephone encounter Note patient requesting refills as follows: Last office visit: 12/05/24 Last refill: 09/17/24 Requested Prescriptions Pending Prescriptions Disp Refills cetirizine (ZYRTEC) 10 mg tablet [Pharmacy Med Name: Cetirizine HCl 10 MG Oral Tablet] 90 tablet 0 Sig: Take 1 tablet by mouth once daily Please review and advise. Daphne Guevara MA [facility] 12-15-2024 Miscellaneous Notes patient requesting refills as follows: Last office visit: 12/05/24 Last refill: 09/17/24 Requested Prescriptions Pending Prescriptions Disp Refills cetirizine (ZYRTEC) 10 mg tablet [Pharmacy Med Name: Cetirizine HCl 10 MG Oral Tablet] 90 tablet 0 Sig: Take 1 tablet by mouth once daily Please review and advise. Daphne Guevara MA documented in this encounter [facility] 12-11-2024 Evaluation note Diagnosis Onset Date Resolution Abnormal cardiovascular stress test chronic December 11, 2024 12:43pm Aortic stenosis chronic November 12:43pm Carotid artery disease chronic Ju 2024 12:43pm Dyslipidemia chronic December 11 025 12:43pm Hypertension chronic December 11 025 12:43pm Lupus chronic December 11 12:43pm [facility] Work Phone: [phone]) 543-502806-16-2025 [facility] [address] [place], [place] [address] OFFICE VISIT Date of Service: 12/11/24 MR#: [id number] Acct: [id number] Name: BRANDON MURO Rep #: [id number] : 1945 Provider: Dr. Noel Steinberg MD Age/Sex: 79/F [place] [facility] Status: Signed HPI HPI History of Present Illness Details: This lady with history of moderate aortic valve stenosis, abnormal stress Myoview with apical ischemia, hypertension, dyslipidemia and lupus is here for follow-up visit. Denies any chest pains or shortness of breath. No palpitations. No lightheadedness or dizziness. No syncope or presyncope. No orthopnea or PND. Intake Vital Signs 03/23/24 08:35 12/11/24 12:12 Height 5 ft 2 in 5 ft 2 in Weight: 211 lb BMI 38.5 BP 119/82 H Blood Pressure Location Lt brachial Position Sitting Respiration 18 Pulse 72 Pulse Source NIBP Intake Visit Reasons: OVERDUE 6 M FU Cardroom Hand Required: No Accompanied by: Self Is patient in pain?: No Allergies mold Allergy (Intermediate, Verified 03/23/24 13:45) Other adhesive tape Allergy (Verified 03/23/24 13:45) Rash celecoxib (From Celebrex) Adverse Reaction (Verified 03/23/24 13:45) Other hydrocodone (From Vicodin) Adverse Reaction (Verified 03/23/24 13:45) Vomiting pitavastatin (From Livalo) Adverse Reaction (Verified 03/23/24 13:45) Other Sulfa (Sulfonamide Antibiotics) Adverse Reaction (Verified 03/23/24 13:45) Other Medications ?Medication ?Instructions ?Recorded ?Confirmed ?Type amlodipine 5 mg tablet 5 mg PO DAILY 12/02/1612/11 History cetirizine 10 mg tablet (All Day 10 mg PO DAILY 12/11/24 History Allergy (cetirizine)) hydrochlorothiazide 12.5 mg tablet 12.5 mg PO DAILY 12/11/24 History losartan 100 mg tablet 100 mg PO DAILY 12/30/22 History omeprazole 40 mg capsule,delayed 40 mg PO DAILY 12/11/24 History release venlafaxine 75 mg tablet 75 mg PO BID 12/30/22 History aspirin 81 mg tablet,delayed 81 mg PO DAILY 01/05/23 0 12/11/24 History release acetaminophen 500 mg tablet 500 mg PO Q8H PRN PRN Pain 03/23/24 12/11/24 History fenofibrate nanocrystallized 145 145 mg PO QDAY #90 ta bs 03/23/24 11/15/24 Rx mg tablet (Tricor) Held on 07/03/24. Instructions: Back pain and headaches hydroxychloroquine 200 mg tablet 200 mg PO BID 4 12/11/24 History bupropion HCl 150 mg 24 hr tablet, 150 mg PO QDAY 11/2612/11/24 History extended release Ejection fraction %: 60 Have you fallen in the past year?: Yes (no major injury; bruising/hematoma) [facility] Medical History Allergic rhinitis Anxiety and depression Aortic stenosis Carotid artery disease DJD (degenerative joint disease) Environmental allergies Essential hypertension GERD (gastroesophageal reflux disease) Glaucoma Hearing loss Hypertension Left carotid bruit Lupus Nonrheumatic aortic (valve) stenosis Stage 3 chronic kidney disease Vitamin D deficiency Surgical History History of 2 sections History of right hip replacement History of total bilateral knee replacement (TKR) Hx of appendectomy Hx of bilateral cataract extraction (~2019) Hx of cardiac catheterization (~1999) Hx of cholecystectomy Hx of lumpectomy Hx of repair of right rotator cuff Family History Mother Hypertension Cancer skin Diabetes Dementia Father Hypertension Cancer skin COPD (chronic obstructive pulmonary disease) Heart disease Dementia Sister Diabetes Hypertension Brother Hypertension Social History Smoking Status: Former smoker how long ago did patient quit smokin alcohol intake: current alcohol intake frequency: a few times a month substance use type: does not use caffeine: Yes Type: carbonated beverages ROS Const Const: Positive for fatigue; Negative for weakness, headache(s) or weight gain ENT ENT: Negative for headache(s), dizziness, Nosebleed/epistaxis or balance problems Cardio Chest Pain: No Palpitations: No Edema: None Muscle aches with walking: None Resp Respiratory: Negative for SOB with activity, SOB at rest or SOB orthopneaundefinedSOB lying down GI GI: Negative nausea, vomiting or heartburn Musc Musc: Positive for muscle aches/ myalgia (fibromyalgia per pt) and muscle weakness; Negative for joint pain or balance problems Neuro Neuro: Negative for dizziness, lightheadedness, near syncope, syncope, headache(s) or weakness Endo Endo: Positive for fatigue Cardiology Exam Const Appearance: healthy appearing and comfortable Neck Neck: no JVD Chest Auscultation: Bilateral: Clear to Auscultation Cardio 3/6 systolic murmur at apex and base. Extremities Lower Extremity Edema: None: Bilateral Supplemental Info Supplemental Information Echocardiogram 04/24/2024: Interpretation Summary The left ventricular ejection fraction is 60 %. Moderate aortic valve stenosis. Mean peak gradient 34 mmHg. Mild aortic valve regurgitation Trivial pericardial effusion. The study was technically difficult. Echocardiogram 06/15/2023: Normal left ventricle. Left ventricular systolic function is normal. The estimated ejection fraction is 55 %. Mild focal aortic valve calcification. Mean aortic valve gradient 31 mmHg. Moderate aortic stenosis. ECHOCARDIOGRAM 11/25/2022: CONCLUSIONS 1. Left ventricular systolic function is normal with a 55-60% estimated ejectionfraction. 2. Spectral Doppler shows an impaired relaxation pattern of left ventricular diastolic filling. 3. Mild aortic valve regurgitation. 4. Hemodynamics suggestive of moderate-severe aortic stenosis. Consider cardiology consult. STRESS TEST 01/18/2023: Rest and stress SPECT Cardiolite nuclear imaging status post realignment, normalization, and attenuation correction demonstrate small reversible apical defect. There is end systolic thickening and brightening. The gated Cardiolitestudy demonstrates myocardial thickening and inward wall motion. The r eported LVEF is 61%. Impression: 1. Pharmacologic (Regadenoson) evaluation 2. Peak pharmacologic ECG with no ischemic changes. 3. There were no cardiac dysrhythmias pretest, during pharmacologic infusion, or recovery. 5. Small reversible apical defect with stress. Suggestive of small area of ischemia. 6. The gated Cardiolite study reports an LVEF of 61%. CAROTID ARTERY DUPLEX ULTRASOUND 11/25/2022: CONCLUSIONS Right carotid: Findings are consistent with less than 50% stenosis of the right proximal ICA. Laminar flow seen by color Doppler. Right external carotid artery appears patent with no evidence of stenosis. No evidence of hemodynamically significant stenosis of the right common carotid artery. The right vertebral artery is patent with antegrade flow. No evidence of hemodynamically significantstenosis in the right subclavian artery. Abnormal findings noted in the right thyroid. Left carotid: Findings are consistent with less than 50% stenosis of the left proximal ICA. Turbulent flow seen by color Doppler. Left external carotid arteryappears patent with no evidence of stenosis. No evidence of hemodynamically significant stenosis of the left common carotid artery. The left vertebral artery is patent with antegrade flow. No evidence of hemodynamically significantstenosis in the left subclavian artery. Abnormal findings noted in the left thyroid. STRESS TEST 08/20/2014: CONCLUSIONS Normal near maximal treadmill stress ECG. Clinically negative for ischemia. Normal HR recovery. O2 saturation 96% Assessment and Plan Assessment and Plan (1) Aortic stenosis: Status: Chronic Plan: Repeat echocardiogram. (2) Hypertension: Status: Chronic Plan: Losartan, hydrochlorothiazide and amlodipine. (3) Carotid artery disease: Status: Chronic Comment: Less than 50% disease bilateral Plan: Continue aspirin. Repeat Doppler. (4) Lupus: Status: Chronic Plan: As per rheumatology. (5) Abnormal cardiovascular stress test: Status: Chronic Plan: Small reversible perfusion defect noted on pharmacological stress Myoview 2 years ago. Repeat Lexiscan stress Myoview. (6) Dyslipidemia: Status: Chronic Plan: On Tricor. Lipids being followed by PCP. Recommend target LDL cholesterol lessthan 100 mg/dL. Plan Details Follow Up: 6 Months Coding Level of Care Code Off vis,est,level 4 Diagnoses Aortic stenosis I35.0 Hypertension I10 Carotid artery disease I77.9 Lupus M32.9 Abnormal cardiovascular stress test R94.39 Dyslipidemia E78.5 Coding Level of Care Code Off vis,est,level 4 Diagnoses Aortic stenosis I35.0 Hypertension I10 Carotid artery disease I77.9 Lupus M32.9 Abnormal cardiovascular stress test R94.39 Dyslipidemia E78.5 Clinical Quality Measures Falls Risk Screening/Assistive Devices Have you fallen in the past year?: Yes (no major injury; bruising/hematoma) Cardiac Ejection fraction %: 60 12/11/24 1303 MD> Date _ Kayla Steinberg MD Cosigner Signature: Date (if applicable) CC: AIRCRAFT INSTRUMENT REPAIRER-C Pilar Ferrer ~ [facility]06-16-2025 Progress note Author Kayla Steinberg [facility] Note Date/Time December 11, 2024 1:03 pm [facility] [address] [place] [address] OFFICE VISIT Date of Service: 12/11/24 MR#: [id number] Acct: [id number] Name: BRANDON MURO Rep #: [id number] : 1945 Provider: Dr. Noel Steinberg MD Age/Sex: 79/F Location: [facility] [place] Status: Signed HPI HPI History of Present Illness Details: This lady with history of moderate aortic valve stenosis, abnormal stress Myoview with apical ischemia, hypertension, dyslipidemia and lupus is here for follow-up visit. Denies any chest pains or shortness of breath. No palpitations. No lightheadedness or dizziness. No syncope or presyncope. No orthopnea or PND. Intake Vital Signs 03/23/24 08:35 12/11/24 12:12 Height 5 ft 2 in 5 ft 2 in Weight: 211 lb BMI 38.5 BP 119/82 H Blood Pressure Location Lt brachial Position Sitting Respiration 18 Pulse 72 Pulse Source NIBP Intake Visit Reasons: OVERDUE 6 M FU Cardroom Hand Required: No Accompanied by: Self Is patient in pain?: No Allergies mold Allergy (Intermediate, Verified 03/23/24 13:45) Other adhesive tape Allergy (Verified 03/23/24 13:45) Rash celecoxib (From Celebrex) Adverse Reaction (Verified 03/23/24 13:45) Other hydrocodone (From Vicodin) Adverse Reaction (Verified 03/23/24 13:45) Vomiting pitavastatin (From Livalo) Adverse Reaction (Verified 03/23/24 13:45) Other Sulfa (Sulfonamide Antibiotics) Adverse Reaction (Verified 03/23/24 13:45) Other Medications ?Medication ?Instructions ?Recorded ?Confirmed ?Type amlodipine 5 mg tablet 5 mg PO DAILY 12/02/1612/11 History cetirizine 10 mg tablet (All Day 10 mg PO DAILY 12/11/24 History Allergy (cetirizine)) hydrochlorothiazide 12.5 mg tablet 12.5 mg PO DAILY 12/11/24 History losartan 100 mg tablet 100 mg PO DAILY 12/30/22 History omeprazole 40 mg capsule,delayed 40 mg PO DAILY 12/11/24 History release venlafaxine 75 mg tablet 75 mg PO BID 12/30/22 History aspirin 81 mg tablet,delayed 81 mg PO DAILY 01/05/23 0 12/11/24 History release acetaminophen 500 mg tablet 500 mg PO Q8H PRN PRN Pain 03/23/24 12/11/24 History fenofibrate nanocrystallized 145 145 mg PO QDAY #90 ta bs 03/23/24 11/15/24 Rx mg tablet (Tricor) Held on 07/03/24. Instructions: Back pain and headaches hydroxychloroquine 200 mg tablet 200 mg PO BID 4 12/11/24 History bupropion HCl 150 mg 24 hr tablet, 150 mg PO QDAY 11/2612/11/24 History extended release Ejection fraction %: 60 Have you fallen in the past year?: Yes (no major injury; bruising/hematoma) [facility] Medical History Allergic rhinitis Anxiety and depression Aortic stenosis Carotid artery disease DJD (degenerative joint disease) Environmental allergies Essential hypertension GERD (gastroesophageal reflux disease) Glaucoma Hearing loss Hypertension Left carotid bruit Lupus Nonrheumatic aortic (valve) stenosis Stage 3 chronic kidney disease Vitamin D deficiency Surgical History History of 2 sections History of right hip replacement History of total bilateral knee replacement (TKR) Hx of appendectomy Hx of bilateral cataract extraction (~2019) Hx of cardiac catheterization (~1999) Hx of cholecystectomy Hx of lumpectomy Hx of repair of right rotator cuff Family History Mother Hypertension Cancer skin Diabetes Dementia Father Hypertension Cancer skin COPD (chronic obstructive pulmonary disease) Heart disease Dementia Sister Diabetes Hypertension Brother Hypertension Social History Smoking Status: Former smoker how long ago did patient quit smokin alcohol intake: current alcohol intake frequency: a few times a month substance use type: does not use caffeine: Yes Type: carbonated beverages ROS Const Const: Positive for fatigue; Negative for weakness, headache(s) or weight gain ENT ENT: Negative for headache(s), dizziness, Nosebleed/epistaxis or balance problems Cardio Chest Pain: No Palpitations: No Edema: None Muscle aches with walking: None Resp Respiratory: Negative for SOB with activity, SOB at rest or SOB orthopneaundefinedSOB lying down GI GI: Negative nausea, vomiting or heartburn Musc Musc: Positive for muscle aches/ myalgia (fibromyalgia per pt) and muscle weakness; Negative for joint pain or balance problems Neuro Neuro: Negative for dizziness, lightheadedness, near syncope, syncope, headache(s) or weakness Endo Endo: Positive for fatigue Cardiology Exam Const Appearance: healthy appearing and comfortable Neck Neck: no JVD Chest Auscultation: Bilateral: Clear to Auscultation Cardio 3/6 systolic murmur at apex and base. Extremities Lower Extremity Edema: None: Bilateral Supplemental Info Supplemental Information Echocardiogram 04/24/2024: Interpretation Summary The left ventricular ejection fraction is 60 %. Moderate aortic valve stenosis. Mean peak gradient 34 mmHg. Mild aortic valve regurgitation Trivial pericardial effusion. The study was technically difficult. Echocardiogram 06/15/2023: Normal left ventricle. Left ventricular systolic function is normal. The estimated ejection fraction is 55 %. Mild focal aortic valve calcification. Mean aortic valve gradient 31 mmHg. Moderate aortic stenosis. ECHOCARDIOGRAM 11/25/2022: CONCLUSIONS 1. Left ventricular systolic function is normal with a 55-60% estimated ejectionfraction. 2. Spectral Doppler shows an impaired relaxation pattern of left ventricular diastolic filling. 3. Mild aortic valve regurgitation. 4. Hemodynamics suggestive of moderate-severe aortic stenosis. Consider cardiology consult. STRESS TEST 01/18/2023: Rest and stress SPECT Cardiolite nuclear imaging status post realignment, normalization, and attenuation correction demonstrate small reversible apical defect. There is end systolic thickening and brightening. The gated Cardiolitestudy demonstrates myocardial thickening and inward wall motion. The reported LVEF is 61%. Impression: 1. Pharmacologic (Regadenoson) evaluation 2. Peak pharmacologic ECG with no ischemic changes. 3. There were no cardiac dysrhythmias pretest, during pharmacologic infusion, or recovery. 5. Small reversible apical defect with stress. Suggestive of small area of ischemia. 6. The gated Cardiolite study reports an LVEF of 61%. CAROTID ARTERY DUPLEX ULTRASOUND 11/25/2022: CONCLUSIONS Right carotid: Findings are consistent with less than 50% stenosis of the right proximal ICA. Laminar flow seen by color Doppler. Right external carotid artery appears patent with no evidence of stenosis. No evidence of hemodynamically significant stenosis of the right common carotid artery. The right vertebral artery is patent with antegrade flow. No evidence of hemodynamically significantstenosis in the right subclavian artery. Abnormal findings noted in the right thyroid. Left carotid: Findings are consistent with less than 50% stenosis of the left proximal ICA. Turbulent flow seen by color Doppler. Left external carotid arteryappears patent with no evidence of stenosis. No evidence of hemodynamically significant stenosis of the left common carotid artery. The left vertebral artery is patent with antegrade flow. No evidence of hemodynamically significantstenosis in the left subclavian artery. Abnormal findings noted in the left thyroid. STRESS TEST 08/20/2014: CONCLUSIONS Normal near maximal treadmill stress ECG. Clinically negative for ischemia. Normal HR recovery. O2 saturation 96% Assessment and Plan Assessment and Plan (1) Aortic stenosis: Status: Chronic Plan: Repeat echocardiogram. (2) Hypertension: Status: Chronic Plan: Losartan, hydrochlorothiazide and amlodipine. (3) Carotid artery disease: Status: Chronic Comment: Less than 50% disease bilateral Plan: Continue aspirin. Repeat Doppler. (4) Lupus: Status: Chronic Plan: As per rheumatology. (5) Abnormal cardiovascular stress test: Status: Chronic Plan: Small reversible perfusion defect noted on pharmacological stress Myoview 2 years ago. Repeat Lexiscan stress Myoview. (6) Dyslipidemia: Status: Chronic Plan: On Tricor. Lipids being followed by PCP. Recommend target LDL cholesterol lessthan 100 mg/dL. Plan Details Follow Up: 6 Months Coding Level of Care Code Off vis,est,level 4 Diagnoses Aortic stenosis I35.0 Hypertension I10 Carotid artery disease I77.9 Lupus M32.9 Abnormal cardiovascular stress test R94.39 Dyslipidemia E78.5 Coding Level of Care Code Off vis,est,level 4 Diagnoses Aortic stenosis I35.0 Hypertension I10 Carotid artery disease I77.9 Lupus M32.9 Abnormal cardiovascular stress test R94.39 Dyslipidemia E78.5 Clinical Quality Measures Falls Risk Screening/Assistive Devices Have you fallen in the past year?: Yes (no major injury; bruising/hematoma) Cardiac Ejection fraction %: 60 12/11/24 1303 <Electronically signed by Kayla Steinberg MD> Date _ Kayla Steinberg MD Cosigner Signature: Date (if applicable) CC: PAO Ferrer ~ [employer] Work Phone: [phone] Telephone encounter Note* Telephone Encounter - Michelle Arzate MA - 12/07/2024 7:52 AM EDT Pharmacy requesting refills as follows: Last Office Visit 12/05/24 NOV 01/04/25. Last Refill 09/10/24. Requested Prescriptions Pending Prescriptions Disp Refills hydroCHLOROthiazide 12.5 mg tablet [Pharmacy Med Name: hydroCHLOROthiazide 12.5 MG Oral Tablet] 90 tablet 0 Sig: Take 1 tablet by mouth once daily Please review and advise. Michlele Arzate MA [facility]06-12-2025 Miscellaneous Notes* Telephone Encounter - Michelle Arzate MA - 12/07/2024 7:52 AM EDT Pharmacy requesting refills as follows: Last Office Visit 12/05/24 NOV 01/04/25. Last Refill 09/10/24. Requested Prescriptions Pending Prescriptions Disp Refills hydroCHLOROthiazide 12.5 mg tablet [Pharmacy Med Name: hydroCHLOROthiazide 12.5 MG Oral Tablet] 90 tablet 0 Sig: Take 1 tablet by mouth once daily Please review and advise. Michelle Arzate MA documented in this encounterC[facility] Telephone encounter Note * Telephone Encounter - Kylie Lee MA - 12/06/2024 12:14 PM EDT Patient informed of results and recommendations. Reminders placed for rechecks. Kylie Lee MA [facility]06-11-2025 Telephone encounter Note* Telephone Encounter - Kylie Lee MA - 12/06/2024 12:14 PM EDT ----- Message from Pilar Ferrer APRN.BILINGUAL TEACHER sent at 12/06/2024 6:50 AM EDT ----- Vit d is borderline low. If not taking Vt D. I want her to start 2000 international unit(s) daily. If she is increase by 1000 international unit(s) daily. Cmp sugar borderline, creatinine remains elevated and stable from last year. Indicates CKD st 3. Avoid all NSAIDS. Recheck in 3 months. We can refer to kidney specialist if interested. Lipids okay CBC normal Tsh borderline. Please place reminder to recheck in 8 wks with t4 [facility]06-11-2025 Miscellaneous Notes* Telephone Encounter - Kylie Lee MA - 12/06/2024 12:14 PM EDT Patient informed of results and recommendations. Reminders placed for rechecks. Kylie Lee MA * Telephone Encounter - Kylie Lee MA - 12/06/2024 12:14 PM EDT ----- Message from Pilar Ferrer APRN.BILINGUAL TEACHER sent at 12/06/2024 6:50 AM EDT ----- Vit d is borderline low. If not taking Vt D. I want her to start 2000 international unit(s) daily. If she is increase by 1000 international unit(s) daily. Cmp sugar borderline, creatinine remains elevated and stable from last year. Indicates CKD st 3. Avoid all NSAIDS. Recheck in 3 months. We can refer to kidney specialist if interested. Lipids okay CBC normal Tsh borderline. Please place reminder to recheck in 8 wks with t4 documented in this encounterC[facility] Instructions* Patient Instructions* Pilar Ferrer, JULIO.BILINGUAL TEACHER - 12/05/2024 9:55 AM EDT Screening schedule The following prevention plan is recommended: Cervical Cancer Screening Never done WHAT YOU CAN DO TO PREVENT FALLS [...] review all the medicines you take, even cduf-yiq-jqtliky medicines. As you get older, the way medicines work in your body can change. Some medicines, or combinations of medicines, can make you sleepy or dizzy andcan cause you to fall. 3. Have your [...] apply if you have certain medical conditions. documented in this encounterC[facility]06-[facility]-2025 NoteHNO ID: [id number] Author: PILAR FERRER APRN.MARY LOU Service: ? Author Type: Nurse Practitioner Type: Progress Notes Filed: 12/05/2024 10:46 Note Text: Brandon Muro is a 79 year old female here for a Medicare wellness visit. PMH HTN, lupus, allergies, anxiety, depression, aortic stenosis. Patient denies changes in health since last office visit. Reports feeling well. Denies concerns or complaints today. I reviewed patients past medical, surgical, social, and family histories today and updated chart. Allergies, chronic medications, and supplements were also reviewed and list is now up to date. 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 - Walks frequently at work. - Wears glasses for astigmatism and hearing aids. - Has a living will and durable power of attorney lawyer for healthcare; sons Dallas Sharma and French Rhodes are designated as surrogate decision makers. - Mother, aged 96, has onset dementia and lives independently. - Dating a man with a 53-year-old son with Down syndrome; they visit on weekends. - Granddaughter is getting in February. - Recent fall about a month ago while emptying a dehumidifier, resulting in bruising on the left arm and soreness in the knee. Bruising has resolved, but a small lump remains on the arm. - Denies head trauma during the fall. HTN: Ms. Muro indicates that she is [...] She is seeing Dr Rios for management. - Managed by Dr. Garduno, taking Plaquenil 200 mg BID. - Discontinued Areva due to hair loss. - Experiences leg pain related to lupus. Depression and anxiety: she is taking Effexor 75 mg twice daily for management. She reports her rheum Dr Rios increased her dose ~ 6 months ago. She was started on Effexor after her in 2017. States anxiety has been controlled with effexor. 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 She reports she really enjoys going and keeps her mind off things.Denies feeling depressed or thoughts of suicide. reports if she misses doses she can tell and feels anxious. Reports she met a real nice man and states she hangs out with him a lot. States this has helped her depression. He has a 50 yo disabled child that he cares for. She feels they have been a blessing to her. She reports she has not reason to be down but feels more depressed. - Increased feelings of depression and fatigue, with no identified cause. - Describes current mood as down and tired. - Reports seasonal affective disorder, with mood affected by winter and spring weather. - Stress eating and weight gain noted over the past three weeks. - Currently taking Effexor 75 mg BID, increased from QD approximately six months ago by fish farmer Dr. Garduno for pain management. - Denies anxiety. Aortic stenosis: reports having murmur for years. Last echo 2015. Denies symptoms. She is seeing DR Steinberg cardi[facility]. - Longstanding history of aortic stenosis, managed by buck presser Dr. Low. - Missed a recent appointment on November 23; plans to reschedule. - Unsure of the date of the last echocardiogram, but recalls some testing in May. - Denies chest pain, palpitations, or dyspnea. Allergies: environmental, chronic. She is using flonase and allergy medication daily. Reports when her allergies are really bad she will use her albuterol inhaler due to feeling SOB which helps with her symptoms. She is former smoker as well. CKD: She has history renal insuffiency and was seeing Dr Tyson in [place]. States she was taking medication for arthritis and once she went off it her kidneys improved. Chronic Cough: - Reports frequent coughing, attributed to post-nasal drainage and allergies. - Cough is non-productive and varies in frequency, often triggered by outdoor exposure. - Denies dyspnea. Cholecystectomy: - History of cholecystectomy; experiences occasional urgency and incontinence. - Carries extra underwear due to unpredictable bowel movements. Preventative: she had colonoscopy with Dr Quinones in August 2022. Reports small hemorrhoids. Reports she was told she does not need another one. She never received her COVID vaccines and is not interested in this. Some elements of above documentation were copyman (more content not included)... [facility]06-10-2025 History of Present illness Narrative* Pilar Ferrer, RESOURCE CONSERVATION MANAGER.BILINGUAL TEACHER - 12/05/2024 9:51 AM EDT Images from the original note were not included. Brandon Muro is a 79 year old female here for a Medicare wellness visit. PMH HTN, lupus, allergies, anxiety, depression, aortic stenosis. Patient denies changes in health since last office visit. Reports feeling well. Denies concerns or complaints today. I reviewed patients past medical, surgical, social, and family histories today and updated chart. Allergies, chronic medications, and supplements were also reviewed and list is now up to date. 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 - Walks frequently at work. - Wears glasses for astigmatism and hearing aids. - Has a living will and durable power of attorney lawyer for healthcare; sons Dallas Sharma and French Rhodesare designated as surrogate decision makers. - Mother, aged 96, has onset dementia and lives independently. - Dating a man with a 53-year-old son with Down syndrome; they visit on weekends. - Granddaughter is getting in February. - Recent fall about a month ago while emptying a dehumidifier, resulting in bruising on the left arm and soreness in the knee. Bruising has resolved, but a small lump remains on the arm. - Denies head trauma during the fall. HTN: Ms. Muro indicates that she is [...] She is seeing Dr Rios for management. - Managed by Dr. Garduno, taking Plaquenil 200 mg BID. - Discontinued Areva due to hair loss. - Experiences leg pain related to lupus. Depression and anxiety: she is taking Effexor 75 mg twice daily for management. She reports her rheum Dr Rios increased her dose ~ 6 months ago. She was started on Effexor after her in 2016. States anxiety has been controlled with effexor. 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 She reports she really enjoys going and keeps her mind off things.Denies feeling depressed or thoughts of suicide. reports if she misses doses she can tell and feels anxious. Reports she met a real nice man and states shehangs out with him a lot. States this has helped her depression. He has a 50 yo disabled child thathe cares for. She feels they have been a blessing to her. She reports she has not reason to be downbut feels more depressed. - Increased feelings of depression and fatigue, with no identified cause. - Describes current mood as down and tired. - Reports seasonal affective disorder, with mood affected by winter and spring weather. - Stress eating and weight gain noted over the past three weeks. - Currently taking Effexor 75 mg BID, increased from QD approximately six months ago by fish farmer Dr. Garduno for pain management. - Denies anxiety. Aortic stenosis: reports having murmur for years. Last echo 2015. Denies symptoms. She is seeing [facility]. - Longstanding history of aortic stenosis, managed by buck presser Dr. Low. - Missed a recent appointment on November 23; plans to reschedule. - Unsure of the date of the last echocardiogram, but recalls some testing in May. - Denies chest pain, palpitations, or dyspnea. Allergies: environmental, chronic. She is using flonase and allergy medication daily. Reports when her allergies are really bad she will use her albuterol inhaler due to feeling SOB which helps with her symptoms. She is former smoker as well. CKD: She has history renal insuffiency and was seeing Dr Tyson in [place]. States she was taking medication for arthritis and once she went off it her kidneys improved. Chronic Cough: - Reports frequent coughing, attributed to post-nasal drainage and allergies. - Cough is non-productive and varies in frequency, often triggered by outdoor exposure. - Denies dyspnea. Cholecystectomy: - History of cholecystectomy; experiences occasional urgency and incontinence. - Carries extra underwear due to unpredictable bowel movements. Preventative: she had colonoscopy with Dr Quinones in August 2022. Reports small hemorrhoids. Reports she was told she does not need another one. She never received her COVID vaccines and is not interested in this. Some elements of above documentation were copied from my progress note of 11/30/23 and have been reexamined and updated where appropriate. All elements reflect the current assessment and medical decision making today . Medicare Health Risk Assessment General Health Fair Exercise: Minutes/Day 0 min Exercise: Days/Week 0 days Alcohol: Daily Use Never Alcohol: Drinks/Day Patient does not drink Alcohol: 6 or more drinks Never Feel off balance Denies Concerns: Teeth/Dentures Denies Concerns: Sexual function Denies Troubled by feelings Yes depression Frequency: Eating healthy diet infrequent ADLs requiring help None Safety precautions in home/vehicle Always Smoke, vape, chews tobacco Denies Difficulty hearing Denies wears hearing aides Difficulty seeing Wears glasses Current Providers Specialists: I have reviewed specialist-related care of the patient in the medical record. Current care team: Patient Care Team: Pilar Ferrer APRN.BILINGUAL TEACHER as PCP - General (Internal Medicine) Jenise Rios (Rheumatology) Taniya Tyson I, DO (Nephrology) Houston Gonzalez Sr., MD (Ent - Otolaryngology) Kayla Steinberg MD (Cardiology) Gama Keith (Ophthalmology) Medical/Family history review Reviewed and updated problem list, medical/surgical/family/social history, medications, and allergies. Opioid use review Opioid Medications (last 90 days) 12/05/2024 09:37 Opioid Medications tramadol HCl 50 mg TID PRN PO (50 mg tab) Details Patient-reported Anxiety/Depression screening PHQ-9 Score: 10 (Moderate Depression) Recommendation: no further intervention at this time and continuing current treatment plan Cognitive screening Mini Cog Score: 5 Cognitive screening reviewed and No further action needed (score 3-5). Functional Observation Was the patient's Timed Up & Go test unsteady or >= 12 seconds? No Advance Care Planning Surrogate decision maker and/or advance care plan documented Surrogate: dallas Sharma, son Alternate: French Rhodes, katrin Measurements BP 120/68 Pulse 72 Temp 36.6 C (97.9 F) Ht 156.2 cm (5' 1.5) Wt 95.4 kg (210 lb 6.4 oz) SpO2 98% BMI 39.11 kg/m Vision Screening: Follows with optometry/ophthalmology Declines visual acuity screen Assessment/Plan Medicare annual wellness visit, subsequent (Z00.00) - Counseled on healthy diet and regular exercise - Fall avoidance information provided - Personalized prevention plan provided - Discussed need for and benefit of weight loss. BMI 39.11 kg/(m^2) Additional Concerns The following concerns were also discussed with the patient: none PHYSICAL EXAM BP 120/68 Pulse 72 Temp 36.6 C (97.9 F) Ht 156.2 cm (5' 1.5) Wt 95.4 kg (210 lb 6.4 oz) SpO2 98% BMI 39.11 kg/m GENERAL: well appearing, alert, in no acute distress CARDIOVASCULAR: systolic murmur present PULMONARY: clear to auscultation, no wheezing, rhonchi, or crackles ABDOMEN: soft, non-tender, non-distended, no masses or organomegaly EXTREMITY: no lower extremity edema. No skin discoloration. ALLERGIES Allergen Reactions Adhesive Rash Celecoxib Other: See Comments Mold Unknown Pitavastatin Other: See Comments Drug induced lupus. Sulfa (Sulfonamide * Unknown Took for bladder infection and infection became worse. Tape [Adhesive Tape* Rash Vicodin [Hydrocodon* GI Upset Medications: venlafaxine (EFFEXOR) 75 mg tablet Take 1 tablet by mouth once daily (Patient taking differently: Take 75 mg by mouth two times a day.) losartan (COZAAR) 100 mg tablet Take 1 tablet by mouth once daily ALLERGY RELIEF, CETIRIZINE, 10 mg tablet Take 1 tablet by mouth once daily hydroCHLOROthiazide 12.5 mg tablet Take 1 tablet by mouth once daily amLODIPine (NORVASC) 5 mg tablet Take 1 tablet by mouth once daily traMADol (ULTRAM) 50 mg tablet Take 50 mg by mouth three times a day as needed. predniSONE (DELTASONE) 20 mg tablet Take 2 tablets by mouth once daily. omeprazole (PRILOSEC) 40 mg capsule Take 1 capsule by mouth once daily. albuterol HFA (PROVENTIL HFA, VENTOLIN HFA) 90 mcg/actuation inhaler Inhale 2 Puffs as instructed every 4 hours as needed for wheezing/shortness of breath. hydrOXYchloroQUINE (PLAQUENIL) 200 mg tablet Take 200 mg by mouth two times a day. leflunomide (ARAVA) 10 mg tablet Take 0.5 tablets by mouth every afternoon. (Patient not taking: Reported on 12/05/2024) Objective Physical Exam BP 120/68 Pulse 72 Temp 36.6 C (97.9 F) Ht 156.2 cm (5' 1.5) Wt 95.4 kg (210 lb 6.4 oz) SpO2 98% BMI 39.11 kg/m Assessment & Plan () Medicare annual wellness visit, subsequent (primary encounter diagnosis) (N18.30) Stage 3 chronic kidney disease, unspecified whether stage 3a or 3b CKD (HCC) 1. Medicare annual wellness visit, subsequent (Z) - Completed Medicare annual wellness visit. - Patient scored perfectly on the mini-cog exam. - Ordered comprehensive lab work including cholesterol, vitamin D, thyroid function, and fasting blood sugar. - Patient to follow up in 4-6 weeks to review lab results and assess response to Wellbutrin. 2. Primary hypertension (I10) - Blood pressure stable; continue current management. 3. Current moderate episode of major depressive disorder without prior episode (HCC) (F32.1) 4. Anxiety and depression (F41.9) - Symptoms of depression have worsened despite current Effexor 75 mg BID regimen. - Initiated Wellbutrin 150 mg daily; discussed potential side effects and expected onset of action (4-6 weeks). - Patient to continue Effexor 75 mg BID. - Follow-up in 4-6 weeks to assess efficacy of Wellbutrin. 5. Mixed hyperlipidemia (E78.2) - Previous adverse reactions to statins and fenofibrate. - Ordered lipid panel to assess current cholesterol levels. - Will discuss alternative management options based on lab results. 6. Mild aortic stenosis (I35.0) - Condition stable per buck presser Dr. Low. - Patient missed last appointment on November 23; advised to reschedule promptly. - Last echocardiogram reportedly done in May. 7. Systemic lupus erythematosus, unspecified SLE type, unspecified organ involvement status (HCC) (M32.9) - Managed by fish farmer Dr. Garduno. - Currently on Plaquenil 200 mg BID; regular ophthalmologic exams every 6 months. - Discontinued Arava due to alopecia. 8. Elevated fasting blood sugar (R73.01) - Ordered fasting blood sugar test. - Will review results and discuss management at follow-up. 9. Stage 3 chronic kidney disease, unspecified whether stage 3a or 3b CKD (HCC) (N18.30) - Ordered renal function tests. - Will monitor and discuss results at follow-up. 10. Vitamin D deficiency (E55.9) - Ordered vitamin D level. - Will adjust supplementation based on lab results. 11. Screening for thyroid disorder (Z13.29) - Ordered thyroid function tests. - Will review and discuss results at follow-up. Pilar Ferrer APRN.BILINGUAL TEACHER documented in this encounterC[facility] Telephone encounter Note * Telephone Encounter - Daphne Guevara MA - 12/04/2024 11:51 AM EDT pharmacy requesting refills as follows: Last office visit: 02/22/24 Last refill: 11/26/24 Requested Prescriptions Pending Prescriptions Disp Refills venlafaxine (EFFEXOR) 75 mg tablet [Pharmacy Med Name: Venlafaxine HCl 75 MG Oral Tablet] 90 tablet0 Sig: Take 1 tablet by mouth once daily Please review and advise. Daphne Guevara MA [facility]06-09-2025 Miscellaneous Notes* Telephone Encounter - Daphne Guevara MA - 12/04/2024 11:51 AM EDT pharmacy requesting refills as follows: Last office visit: 02/22/24 Last refill: 11/26/24 Requested Prescriptions Pending Prescriptions Disp Refills venlafaxine (EFFEXOR) 75 mg tablet [Pharmacy Med Name: Venlafaxine HCl 75 MG Oral Tablet] 90 tablet0 Sig: Take 1 tablet by mouth once daily Please review and advise. Daphne Guevara MA documented in this encounterC[facility]05-29-2025 Telephone encounter Note * Telephone Encounter - Amita Pizano DO - 11/23/2024 3:54 PM EDT Please call pt- does she take venlafaxine once or twice a day Amita Pizano DO [facility]05-29-[facility]25 Miscellaneous Notes* Telephone Encounter - Amita Pizano DO - 11/23/2024 3:54 PM EDT Please call pt- does she take venlafaxine once or twice a day Amita Pizano DO * Telephone Encounter - Angelica Buenrostro MA - 11/22/2024 1:38 PM EDT Patient states she has increased it to twice a day. * Telephone Encounter - Amita Pizano DO - 11/18/2024 8:54 AM EDT Please call pt - is she taking 2 venlafaxine per day? Amita Pizano DO * Telephone Encounter - Daphne Guevara MA - 11/17/2024 8:56 AM EDT Pharmacy requesting refills as follows: Last office visit: 04/19/24 Last refill: 11/30/23 Requested Prescriptions Pending Prescriptions Disp Refills venlafaxine (EFFEXOR) 75 mg tablet [Pharmacy Med Name: Venlafaxine HCl 75 MG Oral Tablet] 90 tablet0 Sig: Take 1 tablet by mouth once daily Please review and advise. Daphne Guevara MA documented in this encounterC[facility]05-28-2025 Telephone encounter Note * Telephone Encounter - Angelica Buenrostro MA - 11/22/2024 1:38 PM EDT Patient states she has increased it to twice a day. [facility]05-[facility] Telephone encounter Note* Telephone Encounter - Amita Pizano DO - 11/18/2024 8:54 AM EDT Please call pt - is she taking 2 venlafaxine per day? Amita Pizano DO [facility]05-23-[facility] Telephone encounter Note* Telephone Encounter - Daphne Guevara MA - 11/17/2024 8:56 AM EDT Pharmacy requesting refills as follows: Last office visit: 04/19/24 Last refill: 11/30/23 Requested Prescriptions Pending Prescriptions Disp Refills venlafaxine (EFFEXOR) 75 mg tablet [Pharmacy Med Name: Venlafaxine HCl 75 MG Oral Tablet] 90 tablet0 Sig: Take 1 tablet by mouth once daily Please review and advise. Daphne Guevara MA [facility]03-21-2025 Telephone encounter Note* Telephone Encounter - Kylie Lee MA - 09/15/2024 9:27 AM EDT pharmacy electronically requesting refills as follows: Last seen 02/22/24 . Last refill 03/20/24 . Requested Prescriptions Pending Prescriptions Disp Refills ALLERGY RELIEF, CETIRIZINE, 10 mg tablet [Pharmacy Med Name: EQ Allergy Relief (Cetirizine) 10 MG Oral Tablet] 90 tablet 0 Sig: Take 1 tablet by mouth once daily Please review and advise. Kylie Lee MA [facility]03-21-2025 Miscellaneous Notes* Telephone Encounter - Kylie Lee MA - 09/15/2024 9:27 AM EDT pharmacy electronically requesting refills as follows: Last seen 02/22/24 . Last refill 03/20/24 . Requested Prescriptions Pending Prescriptions Disp Refills ALLERGY RELIEF, CETIRIZINE, 10 mg tablet [Pharmacy Med Name: EQ Allergy Relief (Cetirizine) 10 MG Oral Tablet] 90 tablet 0 Sig: Take 1 tablet by mouth once daily Please review and advise. Kylie Lee MA documented in this encounterC[facility]03-14-2025 Telephone encounter Note * Telephone Encounter - Angelica Buenrostro MA - 2024 7:43 AM EDT pharm requesting refills: Last office visit 04/19/2024. Last refill hctz 03/20/2024 nov 12/05/2024 Requested Prescriptions Pending Prescriptions Disp Refills hydroCHLOROthiazide 12.5 mg tablet [Pharmacy Med Name: HYDROCHLOROTHIAZIDE 12.5MG TAB] 90 tablet 0 Sig: Take 1 tablet by mouth once daily Please review and advise. Angelica Buenrostro MA [facility]03-14-2025 Miscellaneous Notes* Telephone Encounter - Angelica Buenrostro MA - 2024 7:43 AM EDT pharm requesting refills: Last office visit 04/19/2024. Last refill hctz 03/20/2024 nov 12/05/2024 Requested Prescriptions Pending Prescriptions Disp Refills hydroCHLOROthiazide 12.5 mg tablet [Pharmacy Med Name: HYDROCHLOROTHIAZIDE 12.5MG TAB] 90 tablet 0 Sig: Take 1 tablet by mouth once daily Please review and advise. Angelica Buenrostro MA documented in this encounterC[facility]11-01-2024 Telephone encounter Note * Telephone Encounter - Kylie Lee MA - 04/28/2024 8:44 AM EDT pharmacy electronically requesting refills as follows: Last seen 04/19/24 . Last refill 01/27/24 . Requested Prescriptions Pending Prescriptions Disp Refills amLODIPine (NORVASC) 5 mg tablet [Pharmacy Med Name: amLODIPine Besylate 5 MG Oral Tablet] 90 tablet 0 Sig: Take 1 tablet by mouth once daily Please review and advise. Kylie Lee MA [facility]11-01-2024 Miscellaneous Notes* Telephone Encounter - Kylie Lee MA - 04/28/2024 8:44 AM EDT pharmacy electronically requesting refills as follows: Last seen 04/19/24 . Last refill 01/27/24 . Requested Prescriptions Pending Prescriptions Disp Refills amLODIPine (NORVASC) 5 mg tablet [Pharmacy Med Name: amLODIPine Besylate 5 MG Oral Tablet] 90 tablet 0 Sig: Take 1 tablet by mouth once daily Please review and advise. Kylie Lee MA documented in this encounterC[facility]10-31-2024 Miscellaneous Notes* Telephone Encounter - Viry David LPN - 04/27/2024 3:25 PM EDT Pharmacy requesting refills as follows: Last Office Visit:02/22/2024 with Pilar, 04/19/2024 with Donell Next Office Visit:12/05/2024 Requested Prescriptions Pending Prescriptions Disp Refills losartan (COZAAR) 100 mg tablet [Pharmacy Med Name: Losartan Potassium 100 MG Oral Tablet] 90 tablet 0 Sig: Take 1 tablet by mouth once daily Please review and advise. Viry David LPN documented in this encounterC[facility]10-31-2024 Telephone encounter Note * Telephone Encounter - Viry David LPN - 04/27/2024 3:25 PM EDT Pharmacy requesting refills as follows: Last Office Visit:02/22/2024 with Pilar, 04/19/2024 with Donell Next Office Visit:12/05/2024 Requested Prescriptions Pending Prescriptions Disp Refills losartan (COZAAR) 100 mg tablet [Pharmacy Med Name: Losartan Potassium 100 MG Oral Tablet] 90 tablet 0 Sig: Take 1 tablet by mouth once daily Please review and advise. Viry David LPN [facility]10-23-2024 NoteHNO ID: [id number] Author: DONELL OLIVERA APRN.BILINGUAL TEACHER Service: ? Author Type: Nurse Practitioner Type: [...] up recenlty Has tramadol at home Works [employer] 3 times a week at alf, [employer] PAST MEDICAL HISTORY Diagnosis Date [...] ear normal. Nose: Nose normal. Mouth/Throat: Lips: [place]. No lesions. Mouth: Mucous membranes are moist. No oral lesions. Tongue: No lesions. Pharynx: Oropharynx is clear. Eyes: General: Lids are normal. Conjunctiva/sclera: Conjunctivae normal. Pupils: Pupils are equal, round, and reactive to light. Cardiovascular: Rate and Rhythm: Normal rate and regular rhythm. Heart sounds: Normal heart sounds. Pulmonary: Effort: Pulmonary e (more content not included)...[facility] 04-19-2024 History of Present illness Narrative* Donell Olivera, JULIO.BILINGUAL TEACHER - 04/19/2024 11:13 AM EDT Images from the original note were not [...] up recenlty Has tramadol at home Works [employer] 3 times a week at alf, [employer] PAST MEDICAL HISTORY Diagnosis Date [...] ear normal. Nose: Nose normal. Mouth/Throat: Lips: [place]. No lesions. Mouth: Mucous membranes are moist. [...] with Pilar PCP in November Donell Olivera APRN.BILINGUAL TEACHER documented in this encounterC[facility]09-23-2024 Miscellaneous Notes* Telephone Encounter - Viry David LPN - 03/20/2024 11:23 AM EDT Pharmacy requesting refills as follows: Last Office [...] advise. Viry David LPN documented in this encounterC[facility]09-23-2024 Telephone encounter Note * Telephone Encounter - Viry David LPN - 03/20/2024 11:23 AM EDT Pharmacy requesting refills as follows: Last Office [...] Please review and advise. Viry David LPN [facility]08-27-2024 NoteHNO ID: [id number] Author: PILAR FERRER APRN.BILINGUAL TEACHER Service: ? Author Type: Nurse Practitioner Type: Progress Notes Filed: 02/22/2024 08:46 Note Text: This note was created using [employer]. Subjective Brandon Muro is a 78 year [...] 156.2 cm (5' 1.5 (more content not included)...[facility]08-27-[facility] History of Present illness Narrative* Pilar Ferrer, RESOURCE CONSERVATION MANAGER.[facility] - 02/22/2024 8:13 AM EDT Images from the original note were not included. This note was created using [employer]. Subjective Brandon Muro is a 78 year [...] factors. Can occur anytime and resolves on itsown. Denies injury, swelling, redness, numbness or tingling [...] HISTORY 1965: ANESTH, SECTION No date: APPENDECTOMY 2010: ARTHRP ACETBLR/PROX FEM PROSTC AGRFT/ALGRFT 11/27/2019: CATARACT [...] 78 Resp 16 Ht 156.2 cm (5' 1.5) Wt 96.2 kg (212 lb) SpO2 98% BMI 39.41kg/m Physical Exam Vitals and nursing note reviewed. [...] TABLET - CONSULT TO ORTHOPAEDICS Pilar Ferrer APRN.BILINGUAL TEACHER documented in this encounterC[facility]08-01-2024 Telephone encounter Note * Telephone Encounter - Kylie Lee MA - 01/27/2024 9:34 AM EDT pharmacy electronically requesting refills as follows: Last seen 11/30/23 . Last refill 11/02/23 . Requested Prescriptions Pending Prescriptions Disp Refills amLODIPine (NORVASC) 5 mg tablet [Pharmacy Med Name: amLODIPine Besylate 5 MG Oral Tablet] 90 tablet 0 Sig: Take 1 tablet by mouth once daily Please review and advise. Kylie Lee MA [facility]08-01-2024 Miscellaneous Notes* Telephone Encounter - Kylie Lee MA - 01/27/2024 9:34 AM EDT pharmacy electronically requesting refills as follows: Last seen 11/30/23 . Last refill 11/02/23 . Requested Prescriptions Pending Prescriptions Disp Refills amLODIPine (NORVASC) 5 mg tablet [Pharmacy Med Name: amLODIPine Besylate 5 MG Oral Tablet] 90 tablet 0 Sig: Take 1 tablet by mouth once daily Please review and advise. Kylie Lee MA documented in this encounterC[facility]07-31-2024 Telephone encounter Note * Telephone Encounter - Kylie Lee MA - 01/26/2024 12:04 PM EDT pharmacy electronically requesting refills as follows: Last seen 11/30/23 . Last refill 11/02/23 . Requested Prescriptions Pending Prescriptions Disp Refills losartan (COZAAR) 100 mg tablet [Pharmacy Med Name: Losartan Potassium 100 MG Oral Tablet] 90 tablet 0 Sig: Take 1 tablet by mouth once daily Please review and advise. Kylie Lee MA [facility]07-31-2024 Miscellaneous Notes* Telephone Encounter - Kylie Lee MA - 01/26/2024 12:04 PM EDT pharmacy electronically requesting refills as follows: Last seen 11/30/23 . Last refill 11/02/23 . Requested Prescriptions Pending Prescriptions Disp Refills losartan (COZAAR) 100 mg tablet [Pharmacy Med Name: Losartan Potassium 100 MG Oral Tablet] 90 tablet 0 Sig: Take 1 tablet by mouth once daily Please review and advise. Kylie Lee MA documented in this encounterC[facility]06-20-2024 Miscellaneous Notes* Telephone Encounter - Zaria Ford MA - 12/16/2023 3:22 PM EDT Called pt let her know the results and instructed to have Dr. Patrick to send us the results of herlab work Zaria Ford MA * Telephone Encounter - Zaria Ford MA - 12/08/2023 4:33 PM EDT Called pt left for her to call the office back regarding results Zaria Ford MA * Telephone Encounter - Zaria Ford MA - 12/08/2023 4:33 PM EDT ----- Message from Pilar Ferrer APRN.BILINGUAL TEACHER sent at 12/05/2023 6:14 PM EDT ----- Xray of clavicle unremarkable. No concerning findings. IMPRESSION IMPRESSION: No acute radiographic abnormality. The sternoclavicular joints are difficult to assess because of overlapping bony structures. If there is concern for abnormality in this location, CT is suggested. * Telephone Encounter - Zaria Ford MA - 12/01/2023 4:23 PM EDT Called pt left for her to call the office back for results Zaria Ford MA * Telephone Encounter - Zaria Ford MA - 12/01/2023 4:22 PM EDT ----- Message from Pilar Ferrer APRN.BILINGUAL TEACHER sent at 12/01/2023 6:53 AM EDT ----- Vit D wnl * Telephone Encounter - Zaria Ford MA - 11/30/2023 4:09 PM EDT Called pt left VM for her to call the office back for results Zaria Ford MA * Telephone Encounter - Zaria Ford MA - 11/30/2023 4:08 PM EDT ----- Message from Pilar Ferrer APRN.BILINGUAL TEACHER sent at 11/30/2023 12:31 PM EDT ----- [...] CBC and tsh wnl documented in this encounterC[facility]06-20-2024 Telephone encounter Note * Telephone Encounter - Zaria Ford MA - 12/16/2023 3:22 PM EDT Called pt let her know the results and instructed to have Dr. Patrick to send us the results of herlab work Zaria Ford MA [facility]06-12-2024 Telephone encounter Note* Telephone Encounter - Zaria Ford MA - 12/08/2023 4:33 PM EDT Called pt left VM for her to call the office back regarding results Zaria Ford MA [facility]06-12-2024 Telephone encounter Note* Telephone Encounter - Zaria Ford MA - 12/08/2023 4:33 PM EDT ----- Message from Pilar Ferrer APRN.BILINGUAL TEACHER sent at 12/05/2023 6:14 PM EDT ----- Xray of clavicle unremarkable. No concerning findings. IMPRESSION IMPRESSION: No acute radiographic abnormality. The sternoclavicular joints are difficult to assess because of overlapping bony structures. If there is concern for abnormality in this location, CT is suggested. [facility]06-05-[facility] Telephone encounter Note* Telephone Encounter - Zaria Ford MA - 12/01/2023 4:23 PM EDT Called pt left VM for her to call the office back for results Zaria Ford MA [facility]06-05-[facility] Telephone encounter Note* Telephone Encounter - Zaria Ford MA - 12/01/2023 4:22 PM EDT ----- Message from Pilar Ferrer APRN.BILINGUAL TEACHER sent at 12/01/2023 6:53 AM EDT ----- Vit D ochoal [facility]06-05-2024 Telephone encounter Note* Telephone Encounter - Michelle Arzate MA - 12/01/2023 11:40 AM EDT Patient requesting refills as follows: Last Office Visit 11/30/23 NOV none. Last Refill 08/17/23. Requested Prescriptions Pending Prescriptions Disp Refills omeprazole (PRILOSEC) 40 mg capsule 90 capsule 0 Sig: Take 1 capsule by mouth once daily. Please review and advise. Michelle Arzate MA [facility]06-05-2024 Miscellaneous Notes* Telephone Encounter - Michelle Arzate MA - 12/01/2023 11:40 AM EDT Patient requesting refills as follows: Last Office Visit 11/30/23 NOV none. Last Refill 08/17/23. Requested Prescriptions Pending Prescriptions Disp Refills omeprazole (PRILOSEC) 40 mg capsule 90 capsule 0 Sig: Take 1 capsule by mouth once daily. Please review and advise. Michelle Arzate MA documented in this encounterC[facility]06-04-2024 Telephone encounter Note * Telephone Encounter - Zaria Ford MA - 11/30/2023 4:09 PM EDT Called pt left VM for her to call the office back for results Zaria Ford MA [facility]06-04-2024 Telephone encounter Note* Telephone Encounter - Zaria Ford MA - 11/30/2023 4:08 PM EDT ----- Message from Pilar Ferrer APRN.BILINGUAL TEACHER sent at 11/30/2023 12:31 PM EDT ----- [...] send me results CBC and tsh wnl [facility]06-04-20[facility] Instructions* Patient Instructions* Pilar Ferrer APRN.BILINGUAL TEACHER - 11/30/2023 10:24 AM EDT Screening schedule The following prevention plan is recommended: DTaP,Tdap,Td Vaccine(1 - Tdap) Never done Shingrix Vaccine(1 of 2) Never done RSV Vaccine(1 - 1-dose 60+ series) Never done BP Controlled (<130/80) due on 05/14/2022 Covid-19 Vaccine(2022-) Never done Annual PCP Team Chronic Disease [...] review all the medicines you take, even [id number] medicines. As you get older, the way medicines work in your body can change. Some medicines, or combinations of medicines, can make you sleepy or dizzy andcan cause you to fall. 3. Have your [...] medical conditions. BONE MINERAL DENSITY PATIENT INSTRUCTIONS Bone mineral density testing measures the amount of calcium in certain parts of your bones. This information determines how strong your bones are. The test is used to detect osteoporosis, a disease in which the bone's mineral content and density are low, increasing a person's risk of fractures. Thelumbar spine (lower back) and the hip are [...] your usual activities immediately. 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 She reports [...] echo 2015. Denies symptoms. She is seeing [facility]. She was last seen 08/25/23. [...] insuffiency and was seeing Dr Tyson in [place]. States she was taking medication for arthritis [...] care team: Patient Care Team: Pilar Ferrer APRN.BILINGUAL TEACHER as PCP - General (Internal Medicine) Jenise [...] (Oral) Resp 18 Ht 156.2 cm (5' 1.5) Wt 96.2 kg (212 lb) SpO2 98% BMI 39.41kg/m GENERAL: well appearing, alert, in no acute [...] Z12.31 - ROSA ISELA SCREENING Pilar Ferrer APRN.BILINGUAL TEACHER documented in this encounterC[facility]05-23-2024 Telephone encounter Note * Telephone Encounter - Zaria Ford MA - 11/18/2023 11:40 AM EDT Pt called she is having issues with [...] needed for cough. Please review and advise. Zaria Ford MA [facility]05-23-2024 Miscellaneous Notes* Telephone Encounter - Zaria Ford MA - 11/18/2023 11:40 AM EDT Pt called she is having issues with [...] needed for cough. Please review and advise. Zaria Ford MA documented in this encounterC[facility]05-07-2024 Telephone encounter Note * Telephone Encounter - Zaria Ford MA - 11/02/2023 6:42 AM EDT Last O v4 Apt 11/30/23 Labs 10/21/22 Pharmacy calls in requesting the following refill(s): Requested Prescriptions Pending Prescriptions Disp Refills losartan (COZAAR) 100 mg tablet [Pharmacy Med Name: Losartan Potassium 100 MG Oral Tablet] 90 tablet 0 Sig: Take 1 tablet by mouth once daily Zaria Ford MA [facility]05-07-2024 Miscellaneous Notes* Telephone Encounter - Zaria Ford MA - 11/02/2023 6:42 AM EDT Last O v4 Apt 11/30/23 Labs 10/21/22 Pharmacy calls in requesting the following refill(s): Requested Prescriptions Pending Prescriptions Disp Refills losartan (COZAAR) 100 mg tablet [Pharmacy Med Name: Losartan Potassium 100 MG Oral Tablet] 90 tablet 0 Sig: Take 1 tablet by mouth once daily Zaria Ford MA documented in this encounterC[facility]05-07-2024 Telephone encounter Note * Telephone Encounter - Zaria Ford MA - 11/02/2023 6:39 AM EDT Last OV 09/30/22 Apt 11/30/23 Labs 10/21/22 Pharmacy calls in requesting the following refill(s): Requested Prescriptions Pending Prescriptions Disp Refills amLODIPine (NORVASC) 5 mg tablet [Pharmacy Med Name: amLODIPine Besylate 5 MG Oral Tablet] 90 tablet 0 Sig: Take 1 tablet by mouth once daily Zaria Ford MA [facility]05-07-2024 Miscellaneous Notes* Telephone Encounter - Zaria Ford MA - 11/02/2023 6:39 AM EDT Last OV 09/30/22 Apt 11/30/23 Labs 10/21/22 Pharmacy calls in requesting the following refill(s): Requested Prescriptions Pending Prescriptions Disp Refills amLODIPine (NORVASC) 5 mg tablet [Pharmacy Med Name: amLODIPine Besylate 5 MG Oral Tablet] 90 tablet 0 Sig: Take 1 tablet by mouth once daily Zaria Ford MA documented in this encounterC[facility]04-01-2024 Miscellaneous Notes* Telephone Encounter - Zaria Ford MA - 09/27/2023 6:49 AM EDT Last OV 09/30/22 Pharmacy calls in requesting [...] Take 1 tablet by mouth once daily Zaria Ford MA documented in this encounterC[facility]02-20-2024 Miscellaneous Notes* Telephone Encounter - Zaria Ford MA - 08/17/2023 3:35 PM EST Last OV 09/30/22 Labs 03/04/23 Pharmacy calls in requesting the following refill(s): Requested Prescriptions Pending Prescriptions Disp Refills omeprazole (PRILOSEC) 40 mg capsule [Pharmacy Med Name: Omeprazole 40 MG Oral Capsule Delayed Release] 90 capsule 0 Sig: Take 1 capsule by mouth once daily Zaria Ford MA documented in this encounterC[facility]14-[facility]24 Miscellaneous Notes* Telephone Encounter - Zaria Ford MA - 08/11/2023 3:56 PM EST Called pt let her know the results Zaria Ford MA * Telephone Encounter - Zaria Ford MA - 08/11/2023 3:55 PM EST ----- Message from Pilar Ferrer APRN.BILINGUAL TEACHER sent at 08/09/2023 12:28 PM EST ----- Kidneys stable documented in this encounterC[facility]02-12-2024 History of Present illness Narrative* Sera Ramos - 08/09/2023 10:30 AM EST POPULATION HEALTH NAVIGATION OUTREACH Action/FYI Patient Identified [...] 09, 2023 10:31 AM documented in this [facility]02-02-2024 Miscellaneous Notes* Telephone Encounter - Kylie Lee MA - 07/30/2023 8:16 AM EST pharmacy electronically requesting refills as follows: Last seen 09/30/22 . Last refill 05/01/23 . Requested Prescriptions Pending Prescriptions Disp Refills amLODIPine (NORVASC) 5 mg tablet [Pharmacy Med Name: amLODIPine Besylate 5 MG Oral Tablet] 90 tablet 0 Sig: Take 1 tablet by mouth once daily Please review and advise. Kylie Lee MA documented in this encounterC[facility]02-02-2024 Miscellaneous Notes* Telephone Encounter - Kylie Lee MA - 07/30/2023 7:41 AM EST pharmacy electronically requesting refills as follows: Last seen 09/30/22 . Last refill 04/12/23 . Requested Prescriptions Pending Prescriptions Disp Refills omeprazole (PRILOSEC) 40 mg capsule [Pharmacy Med Name: omeprazole 40 mg capsule,delayed release] 90 capsule 0 Sig: take 1 capsule by mouth once daily Please review and advise. Kylie Lee MA documented in this [address]02-2024 Miscellaneous Notes* Telephone Encounter - Kylie Lee MA - 07/30/2023 7:40 AM EST pharmacy electronically requesting refills as follows: Last seen 09/30/22 . Last refill 04/29/23. No future appointments Requested Prescriptions Pending Prescriptions Disp Refills losartan (COZAAR) 100 mg tablet [Pharmacy Med Name: Losartan Potassium 100 MG Oral Tablet] 90 tablet 0 Sig: Take 1 tablet by mouth once daily Please review and advise. Kylie Lee MA documented in this encounterC[facility]11-03-2023 Miscellaneous Notes* Telephone Encounter - Kylie Lee MA - 04/30/2023 12:26 PM EDT pharmacy electronically requesting refills as follows: Last seen 09/30/22 . Last refill 12/22/22 . Requested Prescriptions Pending Prescriptions Disp Refills amLODIPine (NORVASC) 5 mg tablet [Pharmacy Med Name: amLODIPine Besylate 5 MG Oral Tablet] 90 tablet 0 Sig: Take 1 tablet by mouth once daily Please review and advise. Kylie Lee MA documented in this encounterC[facility]10-16-2023 Miscellaneous Notes* Telephone Encounter - Zaria Ford MA - 04/12/2023 7:13 AM EDT Last OV 09/30/22 Labs 10/21/22 Pharmacy calls in requesting the following refill(s): Requested Prescriptions Pending Prescriptions Disp Refills omeprazole (PRILOSEC) 40 mg capsule [Pharmacy Med Name: Omeprazole 40 MG Oral Capsule Delayed Release] 90 capsule 0 Sig: Take 1 capsule by mouth once daily Zaria Ford MA documented in this encounterC[facility]08-28-2023 Miscellaneous Notes* Telephone Encounter - Zaria Ford MA - 02/22/2023 9:41 AM EDT Called pt left VM that she is due for labs and to see if she had them done at [place] Zaria Ford MA * Telephone Encounter - Lenore Samuels APRN.BILINGUAL TEACHER - 02/22/2023 8:44 AM EDT These orders were already placed by Pilar on 01/04/23. Please remind the patient to complete li. Thank you. * Telephone Encounter - Michelle Arzate MA - 02/19/2023 7:33 AM EDT ----- Message from Kylie Lee MA sent at 01/08/2023 10:52 AM EDT ----- Patient due for 6 week recheck TSH, T4 and BMP to monitor elevated creatinine and TSH. Patient would like to do labs at in [place]. Kylie Lee MA documented in this encounterC[facility]08-28-2023 Evaluation note* Diagnosis Stage 3 chronic kidney disease, unspecified whether stage 3a or 3b CKD (HCC)- Primary Elevated TSH Nonspecific abnormal results of thyroid function study documented in this encounter [facility]07-13[facility]23 Miscellaneous Notes* Telephone Encounter - Zaria Ford MA - 01/07/2023 4:31 PM EDT Called pt left VM regarding results and her needing recheck labs Zaria Ford MA * Telephone Encounter - Zaria Ford MA - 01/05/2023 10:09 AM EDT Called pt left VM for her to call the office regarding her results Zaria Ford MA * Telephone Encounter - Pilar Ferrer [...] 6 wks CBC wnl documented in this encounterC[facility]06-27-2023 Miscellaneous Notes* Telephone Encounter - Zaria Ford MA - 12/22/2022 4:06 PM EDT Last OV 09/30/22 Called pt she stated she had her labs done at [place] she is going to call them and [...] Take 1 tablet by mouth once daily. Zaria Ford MA documented in this encounterC[facility]06-22-2023 Miscellaneous Notes* Telephone Encounter - Zaria Ford MA - 12/17/2022 3:42 PM EDT Called pt let her know the results she will go [facility]. Gave her contact informationfor [place] [facility] faxed records to there office Zaria Ford MA * Telephone Encounter - Pilar Ferrer APRN.MARY LOU - 12/17/2022 3:07 PM EDT Let pt know that her echo results are suggestive or moderate to sever aortic stenosis. She will need to see a buck presser. There is also mild aortic regurg. Please give her names of different providers. [facility]. documented in this encounterC[facility]06-19-2023 Miscellaneous Notes* Telephone Encounter - Zaria Ford MA - 12/14/2022 10:04 AM EDT Last OV 09/30/22 Apt 04/01/23 Labs pt had labs done at [place] she will call them and ask that they faxe the results to us Zaria Ford MA Pharmacy calls in requesting the following refill(s): Requested Prescriptions Pending Prescriptions Disp Refills amLODIPine (NORVASC) 5 mg tablet [Pharmacy Med Name: amLODIPine Besylate 5 MG Oral Tablet] 30 tablet 0 Sig: Take 1 tablet by mouth once daily Zaria Ford MA documented in this encounterC[facility]05-08-2023 Miscellaneous Notes* Telephone Encounter - Zaria Ford MA - 11/02/2022 7:27 AM EDT Last OV 09/30/22 Apt 04/01/23 Called pt left VM that she needs to have labs Pharmacy calls in requesting the following refill(s): Requested Prescriptions Pending Prescriptions Disp Refills losartan (COZAAR) 100 mg tablet [Pharmacy Med Name: Losartan Potassium 100 MG Oral Tablet] 90 tablet 0 Sig: Take 1 tablet by mouth once daily Zaria Ford MA documented in this encounterC[facility]04-05-2023 Instructions* Patient Instructions* Pilar Ferrer APRN.CNP - 09/30/2022 9:40 AM EDT ASSESSMENT/PLAN: 1. 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 She reports [...] for years. Last echo 2015. Denies symptoms. Allergies: environmental, chronic. She is using flonase and allergy medication daily. Reports when her allergies are really bad she will use her albuterol inhaler due to feeling SOB which helps with her symptoms. She is former smoker as well. CKD: She has history renal insuffiency and was seeing Dr Tyson in [place]. States she was taking medication for arthritis [...] kg (193 lb) Height: 157.5 cm (5' 2) Physical Exam Vitals and nursing note reviewed. [...] stenosis - US CAROTID BILATERAL Pilar Ferrer APRN.BILINGUAL TEACHER I spent a total of 55 minutes on the date of the service which included preparing to see the patient, ymwe-ce-ogwf patient care, completing clinical documentation, obtaining and/or reviewing separately obtained history, performing a medically appropriate examination, counseling and educating the pat ient/family/caregiver, and ordering medications, tests, or procedures. documented in this encounterC[facility] Clinic [facility]02-22-2023 Miscellaneous Notes* Telephone Encounter - Angelica [...] urine. Donell Olivera APRN.CNP documented in this encounterC[facility]02-01-2023 Miscellaneous Notes* Telephone Encounter - Zaria Ford MA - 07/29/2022 7:06 AM EST Last [...] Take 1 tablet by mouth once daily Zaria Ford MA documented in this encounterC[facility] Clinic [facility]12-22-2022 Miscellaneous Notes* Telephone Encounter - Zaria Ford MA - 06/18/2022 10:21 AM EST Last [...] Take 1 tablet by mouth once daily Zaria Ford MA documented in this encounterC[facility] Clinic [facility]12-19-2022 Miscellaneous Notes* Telephone Encounter - Zaria Ford MA - 06/15/2022 3:06 PM EST Pt tested positive for COVID Krstin sent in [place] and cough medication for pt Zaria Ford MA * Telephone Encounter - Zaria Ford MA - 06/15/2022 3:06 PM EST ----- Message from Robyn Jacome sent at 06/12/2022 9:22 AM EST ----- Regarding: FW: Medicine/Pilar Ferrer/Patient Requesting Cough Medicine ----- Message ----- From: Ella Guerrero Sent: 06/12/2022 9:16 AM EST To: Enrike Burgos[facility] Triage Pool Subject: Medicine/Pilar Ferrer/Patient Requesting C# Subject Line Format: Medicine / [Provider Name] / [Issue] Patient has been identified by name and Date of (Y/N): Y Patient: Brandon Muro Date of : 1945 Provider for this encounter: Pilar Ferrer APRN.BILINGUAL TEACHER Reason for the call/escalation: Patient requesting cough medicine Was Patient Referred to [facility]/Seek Emergency Treatment (Y/N): N Did Patient Agree (Y/N): N/A Was An Attempt Made To Transfer The Patient To The Office (Y/N): N Were You Able To Reach Someone At The Office (Y/N): N/A If Yes - Patient Was Transferred To (Caregivers Name): N/A If No - Which [facility] Leadership Turf Farm Worker Did You Speak With Regarding This Patient: [...] other than patient: patient Best contact number: [phone] Thank you, Ella Guerrero June 12, 2022 9:13 AM documented in this encounterC[facility]11-09-2022 Miscellaneous Notes* Telephone Encounter - Zaria Ford MA - 05/06/2022 7:50 AM EST Last [...] Take 1 tablet by mouth once daily Zaria Ford MA documented in this encounterC[facility]08-25-2022 Miscellaneous Notes* Telephone Encounter - Kylie Lee [...] advise. Kylie Lee MA documented in this encounterC[facility]07-22-2022 Miscellaneous Notes* Telephone Encounter - Kylie Lee [...] advise. Kylie Lee MA documented in this [facility]07-[facility] Miscellaneous Notes* Telephone Encounter - Zaria Ford MA - 01/05/2022 8:20 AM EDT Last OV 05/14/21 Labs 05/14/21 Pharmacy calls in requesting the following refill(s): Pending Prescriptions Disp Refills LOSARTAN 100 MG TABLET 90 tablet 1 Sig: Take 1 tablet by mouth once daily MELISSA: Yes Zaria Ford MA documented in this [facility]12-[facility] History of Present illness Narrative* Tanja Mcdonald PTA - 06/02/2021 10:45 AM EST [facility] DAILY TREATMENT NOTE Today's [...] 02/28/21 Notes visit 33: 9:45-10:30 Therapeutic Exercise (32062) Intervention Bike - x5 min Lvl 1 [...] with HEP Tanja Mcdonald PTA STATE LICENSE, [id number] documented in this [id number] History of Present illness Narrative* Wilbert Palomares PTA - 05/30/2021 10:45 AM EST [facility] DAILY TREATMENT NOTE Today's [...] 02/28/21 Notes visit 32: 10:45-11:25 Therapeutic Exercise (01895) Intervention Bike - x5 min Lvl 1 [...] on ROM Wilbert Palomares PTA STATE LICENSE, [id number] documented in this [id number] History of Present illness Narrative* Tanja Mcdonald PTA - 05/26/2021 10:45 AM EST [facility] DAILY TREATMENT NOTE Today's [...] 02/28/21 Notes visit 30: 10:45-11:25 Therapeutic Exercise (69815) Intervention SciFit - x5 min Lvl 3 [...] on flexion Tanja Mcdonald PTA STATE LICENSE, [id number] documented in this [id number] History of Present illness Narrative* Wilbert Palomares PTA - 05/23/2021 11:30 AM EST [facility] DAILY TREATMENT NOTE Today's [...] visit 29: 1130 - 12:08 Therapeutic Exercise (11501) Intervention SciFit - x5 min Lvl 3 [...] on ROM Wilbert Palomares PTA STATE LICENSE, [id number] documented in this [id number] History of Present illness Narrative* Georgi Coughlin PTA - 05/21/2021 11:30 AM EST [facility] DAILY TREATMENT NOTE Today's [...] OTHER Precautions/Contraindications TKA 02/28/21 Notes visit 28 [id number] Therapeutic Exercise (08045) Intervention SciFit - x5 min Lvl 3 [...] with focus on progressing as tolerated Georgi Couglhin PTA STATE LICENSE, [id number] documented in this [id number] History of Present illness Narrative* Tanja Mcdonald PTA - 05/19/2021 10:45 AM EST [facility] DAILY TREATMENT NOTE Today's [...] 02/28/21 Notes visit 27: 10:45-11:25 Therapeutic Exercise (00797) Intervention SciFit - x5 min Lvl 3 [...] on ROM Tanja Mcdonald PTA STATE LICENSE, [id number] documented in this [id number] History of Present illness Narrative* Tanja Mcdonald PTA - 05/16/2021 10:45 AM EST [facility] DAILY TREATMENT NOTE Today's [...] 02/28/21 Notes visit 26: 10:45-11:25 Therapeutic Exercise (73780) Intervention SciFit - x5 min Lvl 3 [...] flexion/extension ROM Tanja Mcdonald PTA STATE LICENSE, [id number] documented in this [id number] History of Present illness Narrative* Wilbert Palomares PTA - 05/15/2021 7:45 AM EST [facility] DAILY TREATMENT NOTE Today's [...] visit 25: 7:50 - 7:30 Therapeutic Exercise (37319) Intervention SciFit - x5 min Lvl 3 [...] on ROM Wilbert Palomares PTA STATE LICENSE, [id number] documented in this [id number] NoteHNO ID: [id number] Author: Pilar Ferrer APRN.BILINGUAL TEACHER Service: ? Author Type: Nurse Practitioner Type: Progress Notes Filed: 05/14/2021 2:44 PM Note Text: .[facility]11-17-2021 NoteHNO ID: [id number] Author: Pilar Ferrer APRN.BILINGUAL TEACHER Service: ? 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 She reports [...] insuffiency and was seeing Dr Tyson in [place]. States she was taking medication for arthritis [...] her job due refusal. She works at [employer]. Some elements of above documentation were copied [...] generally not very mu (more content not included)...[facility]11-15-2021 History of Present illness Narrative* Tanja Mcdonald, HISTOLOGY SPECIALIST - 05/12/2021 10:45 AM EST [facility] DAILY TREATMENT NOTE Today's [...] visit 24: 10:47 - 11:30 Therapeutic Exercise (64682) Intervention SciFit - x5 min Lvl 3 [...] on flexion Tanja Mcdonald PTA STATE LICENSE, [id number] documented in this [id number] History of Present illness Narrative* Wilbert Palomares PTA - 05/09/2021 10:45 AM EST [facility] DAILY TREATMENT NOTE Today's [...] Log - 05/09/21 1047 OTHER Precautions/Contraindications TKA 02/28/21 Notes visit 23: 10:44 - 11:30 Therapeutic Exercise (94311) Intervention SciFit - x5 min Lvl 3 [...] and stretching Wilbert Palomares PTA STATE LICENSE, [id number] documented in this [id number] History of Present illness Narrative* Clemencia Montes, PT - 05/05/2021 4:45 PM EST [facility] DAILY TREATMENT NOTE Today's [...] visit 21: 4:42 - 5:27 Therapeutic Exercise (09160) Intervention SciFit - x5 min Lvl 3 [...] flexion ROM Clemencia Montes PT State License, [id number] documented in this [id number] History of Present illness Narrative* Wilbert Palomares PTA - 05/02/2021 11:30 AM EDT [facility] DAILY TREATMENT NOTE Today's [...] visit 20: 11:30 - 12:15 Therapeutic Exercise (42814) Intervention SciFit - x5 min Lvl 3 [...] per MD Wilbert Palomares PTA STATE LICENSE, [id number] documented in this [id number] History of Present illness Narrative* Tanja Mcdonald PTA - 04/25/2021 1:45 PM EDT [facility] DAILY TREATMENT NOTE Today's [...] 02/28/21 Notes visit 19: 1:45-2:25 Therapeutic Exercise (08985) Intervention SciFit - x5 min Lvl 3 [...] from surgeon. Tanja Mcdonald PTA STATE LICENSE, [id number] documented in this [id number] History of Present illness Narrative* Tanja Mcdonald PTA - 04/23/2021 11:30 AM EDT [facility] DAILY TREATMENT NOTE Today's [...] 02/28/21 Notes visit 18: 11:30-12:10 Therapeutic Exercise (32755) Intervention SciFit - x5 min Lvl 3 [...] pain control Tanja Mcdonald PTA STATE LICENSE, [id number] documented in this [id number] History of Present illness Narrative* Tanja Mcdonald PTA - 04/21/2021 11:30 AM EDT [facility] DAILY TREATMENT NOTE Today's [...] 02/28/21 Notes visit 17: 11:30-12:15 Therapeutic Exercise (84536) Intervention SciFit - x5 min Lvl 3 [...] on ROM Tanja Mcdonald PTA STATE LICENSE, [id number] documented in this [id number] History of Present illness Narrative* Tanja Mcdonald PTA - 04/07/2021 1:00 PM EDT [facility] DAILY TREATMENT NOTE Today's [...] 02/28/21 Notes visit 11: 1:00-1:35 Therapeutic Exercise (37374) Intervention SciFit - x8 min Lvl 3 [...] on ROM Tanja Mcdonald PTA STATE LICENSE, [id number] documented in this [id number] History of Present illness Narrative* Tanja Mcdonald PTA - 04/04/2021 1:00 PM EDT [facility] DAILY TREATMENT NOTE Today's [...] 02/28/21 Notes visit 10: 1:00-1:40 Therapeutic Exercise (05912) Intervention SciFit - x8 min Lvl 3 [...] on flexion Tanja Mcdonald PTA STATE LICENSE, [id number] documented in this [id number] NoteHNO ID: [id number] Author: Sera Ramos Service: ? Author Type: [...] future healthcare decisions with a power of attorney lawyer, living will, or advance directives? Yes. Have you shared those records with your doctor? No Referrals: N/A Message Sent to Practice: NO Navigation Signature: Sera Ramos April 02, 2021 11:11 [facility]10-06-2021 NoteHNO ID: [id number] Author: Sera Ramos Service: ? Author Type: ? Type: Progress Notes Filed: 04/02/2021 11:09 AM Note Text: POPULATION HEALTH NAVIGATION OUTREACH Action/FYI Contact made with patient or family member? NO Pt identified by name and : NO Outreach Outcome/Action Unable to reach patient: Left message [email or web address] message sent Reason for Outreach Care Gap [...] future healthcare decisions with a power of attorney lawyer, living will, or advance directives? Unknown Referrals: N/A Message Sent to Practice: NO Navigation Signature: Sera MathewRachel April 02, 2021 11:08 [facility]10-04-2021 History of Present illness Narrative* Tanja Mcdonald, HISTOLOGY SPECIALIST - 03/31/2021 1:00 PM EDT [facility] DAILY TREATMENT NOTE Today's [...] 02/28/21 Notes visit 8: 1:00-1:40 Therapeutic Exercise (14704) Intervention SciFit - x8 min Lvl 3 [...] on ROM Tanja Mcdonald PTA STATE LICENSE, [id number] documented in this [id number] History of Present illness Narrative* Tanja Mcdonald PTA - 03/26/2021 1:00 PM EDT [facility] DAILY TREATMENT NOTE Today's [...] 02/28/21 Notes visit 7: 1:00-1:40 Therapeutic Exercise (17976) Intervention SciFit - x8 min Lvl 3 [...] and AROM Tanja Mcdonald PTA STATE LICENSE, [id number] documented in this [id number] History of Present illness Narrative* Tanja Mcdonald PTA - 03/24/2021 1:00 PM EDT [facility] DAILY TREATMENT NOTE Today's [...] 02/28/21 Notes visit 6: 1:00-1:40 Therapeutic Exercise (41318) Intervention SciFit - x8 min Lvl 3 [...] on ROM Tanja Mcdonald PTA STATE LICENSE, [id number] documented in this [id number] History of Present illness Narrative* Tanja Mcdnoald PTA - 03/21/2021 1:00 PM EDT [facility] DAILY TREATMENT NOTE Today's [...] 02/28/21 Notes visit 5: 1:00-1:40 Therapeutic Exercise (85200) Intervention SciFit - x8 min Lvl 3 [...] pain control Tanja Mcdonald PTA STATE LICENSE, [id number] documented in this [id number] History of Present illness Narrative* Tanja Mcdonald PTA - 03/19/2021 1:00 PM EDT [facility] DAILY TREATMENT NOTE Today's [...] 02/28/21 Notes visit 4: 1:00-1:40 Therapeutic Exercise (37136) Intervention SciFit - x5 min Lvl 3 [...] and AROM Tanja Mcdonald PTA STATE LICENSE, [id number] documented in this [id number] History of Present illness Narrative* Clemencia Montes, PT - 03/12/2021 1:00 PM EDT [facility] DAILY TREATMENT NOTE Today's [...] Visit 2: 1:03 - 2:00 Therapeutic Exercise (53863) Intervention SciFit - x5 min Lvl 3 [...] and mobility Clemencia Montes PT State License, [id number] documented in this [id number] History of Present illness Narrative* Clemencia Montes PT - 03/04/2021 2:30 PM EDT [facility] Evaluation Today's Date 03/04/2021 [...] Gait Devices: 2-WW and SPC Social Support: Adventist, social, or cultural considerations to be made aware of before starting treatment: No Home Environment: Current Home Environment: Setup: single story house (with basement) Entry: steps with railing (3 MIKE) Activities of Daily Living: Lower Body: increased time and effort with allActivities of daily living: uses adaptive equipment for ADLs.Instrumental Activities of Daily Living: to be assessed Sleep Assessment Preferred sleep position: supine and on side Sleep disturbance: no Sleep Disturbance Red Flags: None Comments: Barriers to Care: None Adventist, social, or cultural considerations to be made [...] Notes Eval: 2:38 - 3:15 Therapeutic Exercise (39717) Intervention Provided written HEP handouts consisting of [...] with HEP in 1 week. CPT Code 23121 Low 42514 Moderate 44598 High History 0 1-2 3+ Comorbidities: HTN [...] result in the following functional limitations: ADLs/IADLs, hand winder, functional mobility, walking, stairs, recreational activities, quality [...] pain control. Clemencia Montes PT State License, [id number] documented in this [id number] NoteHNO ID: [id number] Author: Sera Ramos Service: ? Author Type: ? Type: Progress Notes Filed: 02/25/2021 2:59 PM Note Text: POPULATION HEALTH NAVIGATION OUTREACH Action/FYI Contact made with patient or family member? NO Pt identified by name and : NO Outreach Outcome/Action Unable to reach patient: Left message Reason for Outreach Care Gap or Scheduling/Wellness visits Patient LM for wi 02-24-21. I am returning call. Payer: Payor: [...] future healthcare decisions with a power of attorney lawyer, living will, or advance directives? Unknown Referrals: N/A Message Sent to Practice: NO Navigation Signature: Sera Ramos February 25, 2021 2:51 [facility]08-30-2021 NotePatient Outreach (AGINTMLW) BRANDON MURO ([id number]) 1945 F Date Time Provider Department 02/24/21 SERA RAMOS During your visit today, we recorded the following information about you: Sera Ramos 02/24/2021 9:37 AM Signed POPULATION HEALTH NAVIGATION OUTREACH Action/ Contact made with patient or family member? [...] future healthcare decisions with a power of attorney lawyer, living will, or advance directives? Referrals: N/A [...] Gap or Scheduling/Wellness visits Patient LM for wi 02-24-21. I am returning call. Payer: Payor: [...] future healthcare decisions with a power of attorney lawyer, living will, or advance directives? Unknown Referrals: [...] future healthcare decisions with a power of attorney lawyer, living will, or advance directives? Unknown Referrals: [...] SCREENING Never done BP (more content not included)...[facility]08-30-2021 NoteHNO ID: [id number] Author: Sera Ramos Service: ? Author Type: [...] future healthcare decisions with a power of attorney lawyer, living will, or advance directives? Referrals: N/A Message Sent to Practice: NO Navigation Signature: Sera Ramos February 24, 2021 9:34 [facility]08-10-2021 History of Present illness Narrative* Clemencia Montes, PT - 02/04/2021 9:41 AM EDT Patient called today to cancel all of her therapy sessions, stating her doctor told her to hold offon therapy until after surgery. PT POC to be D/C'd this date per patient request. documented in this [id number] History of Present illness Narrative* Wilbert Palomares PTA - 02/03/2021 1:00 PM EDT [facility] DAILY TREATMENT NOTE Today's [...] visit 2: 1:00 - 1:30 Therapeutic Exercise (13845) Intervention sci fit 2' lv 1 Parameters [...] with focus on strengthening as tolerated Wilbert Palomares PTA STATE LICENSE, [id number] documented in this [id number] History of Present illness Narrative* Tanja Mcdonald PTA - 01/29/2021 9:15 AM EDT [facility] DAILY TREATMENT NOTE Today's [...] OTHER Notes visit 1: 9:15-9:55 Therapeutic Exercise (73748) Intervention provided HEP handout consisting of the [...] and ROM Tanja Mcdonald PTA STATE LICENSE, [id number] documented in this [id number] History of Present illness Narrative* Daisy Wallace T - 01/28/2021 8:30 AM EDT [facility] Evaluation Today's Date 01/28/2021 [...] Community: independent and no device Social Support: Adventist, social, or cultural considerations to be made aware of before starting treatment: No Home Environment: Current Home Environment: Setup: single story house Entry: steps with railing (3 MIKE) Additional comments: entire house is handicap accessible Activities of Daily Living: independent with all Instrumental Activities of Daily Living: to be assessed Prior Avocational Participation (community involvement, hobbies, volunteer): gardening, sewing Sleep Assessment Sleep disturbance: Sleep Disturbance Red Flags: None Comments: Barriers to Care: None Adventist, social, or cultural considerations to be made [...] Notes Eval: 8:38 - 9:08 Therapeutic Exercise (79790) Intervention provided HEP handout consisting of the following: Parameters HS and calf stretch Intervention heel slides Parameters quad sets Intervention SLR PT Treatment Times Total Treatment Time 30 CPT Code 81826 Low 78468 Moderate 81173 High History 0 1-2 3+ Comorbidities: HTN [...] result in the following functional limitations: ADLs/IADLs, hand winder, functional mobility, walking, stairs, quality of life, [...] Daisy Wallace No licensure found in state: [place] Clemencia Montes PT, DPT State License, [id number] documented in this [id number] NoteHNO ID: [id number] Author: Sera Ramos Service: ? Author Type: [...] Signature: Sera Ramos January 20, 2021 12:18 [facility]07-19-2021 NotePatient Outreach (AGINTMLW) BRANDON MURO ([id number]) 1945 F Date Time Provider Department 01/13/21 [...] future healthcare decisions with a power of attorney lawyer, living will, or advance directives? Referrals: Message [...] Date Reviewed: 03/21/2019 Reviewed by: Pilar Jade (Literacy CoachChristina Ferrer CNP - Fully Assessed Reason for Visit: Population [...] 08/11/2017 Encounter Status:Closed by SERA RAMOS on 01/13/21[facility]07-19-2021 NoteHNO ID: [id number] Author: Sera Ramos Service: ? Author Type: [...] future healthcare decisions with a power of attorney lawyer, living will, or advance directives? Referrals: Message Sent to Practice: NO Navigation Signature: Sera Ramos January 13, 2021 9:36 [facility] note* Diagnosis Primary osteoarthritis of right knee- [facility] Primary [facility]oarthritis of right knee [facility] Diagnosis Primary osteoarthritis of right knee- Primary [facility] Diagnosis Primary osteoarthritis of right knee- Primary [facility] Diagnosis History of arthroplasty of right knee- Primary [facility] Diagnosis Status post total right knee replacement History of arthroplasty of right knee [facility] Diagnosis Status post total right knee replacement- Primary [facility]* Diagnosis Status post total right knee replacement- Primary [facility] Diagnosis Status post total right knee replacement- Primary [facility] Diagnosis Status post total right knee replacement- Primary [facility] Diagnosis Status post total right knee replacement- Primary [facility] Diagnosis Status post total right knee replacement- Primary documented in this encounter [facility] note* Diagnosis Status post total right knee replacement- Primary documented in this encounter [facility] note* Diagnosis Status post total right knee replacement- Primary documented in this encounter [facility] note* Diagnosis Status post total right knee replacement- Primary documented in this encounter [facility] note* Diagnosis Presence of right artificial knee joint- Primary documented in this encounter [facility] note* Diagnosis Status post total right knee replacement- Primary Presence of right artificial knee joint documented in this encounter [facility] note* Diagnosis Status post total right knee replacement- Primary documented in this encounter [facility] note* Diagnosis Status post total right knee replacement- Primary documented in this encounter [facility] note* Diagnosis Status post total right knee replacement- Primary documented in this encounter [facility] note* Diagnosis Status post total right knee replacement- Primary documented in this encounter [facility] note* Diagnosis Gastroesophageal reflux disease without esophagitis Esophageal reflux documented in this encounter [facility] note* Diagnosis Allergic rhinitis, unspecified seasonality, unspecified trigger documented in this encounter [facility] note* Diagnosis Gastroesophageal reflux disease without esophagitis Esophageal reflux documented in this encounter [facility] note* Diagnosis Microscopic hematuria- Primary documented in this encounter [facility] note* Diagnosis Primary hypertension- Primary Unspecified essential [...] seasonality, unspecified trigger documented in this encounter [facility] note* Diagnosis Aortic valve stenosis, etiology of cardiac valve disease unspecified- Primary documented in this encounter [facility] note* Diagnosis Primary hypertension Unspecified essential hypertension Gastroesophageal reflux disease without esophagitis Esophageal reflux documented in this encounter [facility] note* Diagnosis Elevated TSH- Primary Nonspecific abnormal results of thyroid function study Elevated serum creatinine Other nonspecific findings on examination of blood Abnormal thyroid function test Nonspecific abnormal results of thyroid function study documented in this encounter [facility] note* Diagnosis Gastroesophageal reflux disease without esophagitis Esophageal reflux [facility] noteNo assessment information availableWBethesda [facility] Work Phone: Evaluation note* Diagnosis Gastroesophageal reflux disease without esophagitis Esophageal reflux [facility] Diagnosis Gastroesophageal reflux disease without esophagitis Esophageal reflux [facility]* Diagnosis Primary hypertension Unspecified essential hypertension Allergic rhinitis, unspecified seasonality, unspecified trigger [facility]* Diagnosis Medicare annual wellness visit, subsequent- [...] mammogram [facility]* Diagnosis Acquired clavicle deformity Acquired musculoskeletal deformity of other specified site [facility]* Diagnosis Right wrist pain- Primary Pain in joint, forearm Chronic pain of right ankle [facility]* Diagnosis Herpes zoster without complication- Primary Herpes zoster without mention of complication [facility]* Diagnosis Pain in left ankle and joints of left foot documented in this encounter [facility] Work Phone: Evaluation note* Diagnosis Pain in left foot Pain in soft tissues of limb documented in this encounter [facility] Work Phone: Evaluation note* Diagnosis Primary hypertension Unspecified essential hypertension [facility]* Diagnosis Allergic rhinitis, unspecified seasonality, unspecified trigger documented [facility]* Diagnosis Anxiety and depression Dysthymic disorder documented [facility]* Diagnosis Anxiety and depression Dysthymic disorder [facility]* Diagnosis Medicare annual wellness visit, subsequent- Primary Routine general medical examination at a health care facility Primary hypertension Unspecified essential hypertension Current moderate episode of major depressive disorder without prior episode (HCC) Anxiety and depression Dysthymic disorder Mixed hyperlipidemia Mild aortic stenosis Aortic valve disorders Systemic lupus erythematosus, unspecified SLE type, unspecified organ involvement status (HCC) Elevated fasting blood sugar Impaired fasting glucose Stage 3 chronic kidney disease, unspecified whether stage 3a or 3b CKD (HCC) Vitamin D deficiency Unspecified vitamin D deficiency Screening for thyroid disorder [facility]* Diagnosis Primary hypertension Unspecified essential hypertension documented in this encounter [facility] note* Diagnosis Onset Date Resolution Status Admit Date Abnormal cardiovascular stre ss test chronic December 11, 2024 12:43pm Aortic stenosis chronic November 12:43pm Carotid artery disease chronic Ju 2024 12:43pm Dyslipidemia chronic December 11 025 12:43pm Hypertension chronic December 11 025 12:43pm Lupus chronic December 11 12:43pm [employer] Work Phone: Evaluation note* Diagnosis Allergic rhinitis, unspecified seasonality, unspecified trigger documented in this encounter [facility] for referral (narrative)* Diagnostic Procedure Only (Routine) - Pending Review Specialty Diagnoses / Procedures Referred By Contac t Referred To Contact US IMAGING Diagnoses Left carotid bruit Procedures US CAROTID BILATERAL Pilar Ferrer APRN.BILINGUAL TEACHER [address] [place] [address] Us Imaging Referral ID Status Reason Start Date Expiration Date Visits Requested Visits Authorized [id number] Pending Review Auto-Generat ed Referral 09/30/2022 10/30/2023 1 1 * Outpatient Procedure (Routine) - Pending Review Specialty Diagnoses / Procedures Referred By Contac t Referred To Contact [facility] Diagnoses Mild aortic stenosis Procedures ECHO ECHO TTHRC R-T 2D W/WOM-MODE COMPL SPEC&COLR D Pilar Ferrer APRN.BILINGUAL TEACHER [address] [place] [address] [facility] [address] [place] [address] Referral ID Status Reason Start Date Expiration Date Visits Requested Visits Authorized [id number] Pending Review Auto-Generat ed Referral 09/30/2022 09/30/2023 1 1 * Diagnostic Procedure Only (Routine) - Pending Review Specialty Diagnoses / Procedures Referred By Contac t Referred To Contact BR IMAGING Diagnoses Encounter for screening mammogram for malignant neoplasm of breast Procedures ROSA ISELA SCREENING SCREENING MAMMOGRAPHY BI 2-VIEW BREAST INC CAD Pilar Ferrer APRN.BILINGUAL TEACHER [address] [place] [address] [facility] [address] [place] [address] Referral ID Status Reason Start Date Expiration Date Visits Requested Visits Authorized [id number] Pending Review Auto-Generat ed Referral 09/30/2022 10/30/2023 1 1 [facility] for referral (narrative)* Diagnostic Procedure Only (Routine) - Closed Specialty Diagnoses / Procedures Referred By Contac t Referred To Contact XR IMAGING Diagnoses Acquired clavicle deformity Procedures XR CLAVICLE 2V RIGHT RADEX CLAVICLE COMPLETE Pilar Ferrer RESOURCE CONSERVATION MANAGER.BILINGUAL TEACHER [address] [place] [address] [place] [address] Referral ID Status Reason Start Date Expiration Date V isits Requested Visits Authorized [id number] Closed Auto-Generate d Referral 11/30/2023 12/29/2024 1 1 * Diagnostic Procedure Only (Routine) - Closed Specialty Diagnoses / Procedures Referred By Contac t Referred To Contact XR IMAGING Diagnoses Acquired clavicle deformity Procedures XR CLAVICLE 2V LEFT RADEX CLAVICLE COMPLETE Pilar Ferrer APRN.BILINGUAL TEACHER [address] [place] [address] [place] [address] Referral ID Status Reason Start Date Expiration Date V isits Requested Visits Authorized [id number] Closed Auto-Generate d Referral 11/30/2023 12/29/2024 1 1 * Diagnostic Procedure Only (Routine) - Pending Review Specialty Diagnoses / Procedures Referred By Bella schaffer Referred To Contact BR IMAGING Diagnoses Encounter for screening mammogram for malignant neoplasm of breast Procedures ROSA ISELA SCREENING SCREENING MAMMOGRAPHY BI 2-VIEW BREAST INC CAD Pilar Ferrer APRN.BILINGUAL TEACHER [address] [place] [address] [place] [place] [address] Referral ID Status Reason Start Date Expiration Date Visits Requested Visits Authorized [id number] Pending Review Auto-Generat ed Referral 11/30/2023 12/29/2024 1 1 * Diagnostic Procedure Only (Routine) - Pending Review Specialty Diagnoses / Procedures Referred By Bella schaffer Referred To Contact XR IMAGING Diagnoses Post-menopausal Procedures DXA-AXIAL SKELETON Pilar Ferrer RESOURCE CONSERVATION MANAGER.BILINGUAL TEACHER [address] [place] [address] [place] [address] Referral ID Status Reason Start Date Expiration Date Visits Requested Visits Authorized [id number] Pending Review Auto-Generat ed Referral 11/30/2023 12/29/2024 1 1 [facility] (n[facility])No reason for referral information availableFloyd [facility] Work Phone: Reason for visit Narrative* Diagnostic Procedure Only (Routine) - Closed Specialty Diagnoses / Procedures Referred By Bella schaffer Referred To Contact XR IMAGING Diagnoses Acquired clavicle deformity Procedures XR CLAVICLE 2V RIGHT RADEX CLAVICLE COMPLETE iPlar Ferrer APRN.BILINGUAL TEACHER [address] [place] [address] [place] [address] Referral ID Status Reason Start Date Expiration Date V isits Requested Visits Authorized [id number] Closed Auto-Generate d Referral 11/30/2023 12/29/2024 1 1 [facility] for visit Narrative* Imaging (Routine) - Pending Review Specialty Diagnoses / Procedures Referred By Contac t Referred To Contact Radiology Diagnoses Pain in left ankle and joints of left foot Procedures XR ankle right 3+ views XR ankle left 3+ views Eliana Nichole, DPM [address] [place] [address] Phone: tel: fax: Referral ID Status Reason Start Date Expiration Date Visits Requested Visits Authorized [id number] Pending Review Perform Procedure 06/05/2024 06/05/2025 1 1 [facility] Work Phone: Reason for visit Narrative* Imaging (Routine) - Pending Review Specialty Diagnoses / Procedures Referred By Contac t Referred To Contact Radiology Diagnoses Pain in left foot Procedures XR foot right 3+ views XR foot left 3+ views Eliana Nichole, DPM [address] [place] [id number] Phone: tel: fax: Referral ID Status Reason Start Date Expiration Date Visits Requested Visits Authorized [id number] Pending Review Perform Procedure 06/05/2024 06/05/2025 1 1 [facility] Work Phone: Summary Purpose Family History Relationship Condition Age at Onset Recorded Date/T samia mother Hypertension Unknown Malignant neoplasm Unknown Diabetes mellitus Unknown Dementia Unknown father Hypertension Unknown Chronic obstructive pulmonary disease Unk nown Cardiac disease Unknown sister Diabetes mellitus Unknown Hypertension Unknown brother Hypertension Unknown Advance Directives Documents on File Type Date Recorded 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 Advance Directives and Living Will Documents on File Type Date Recorded 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 Advance Directives and Living Will Advance Directive Response Recorded Date/ Time Living Will Yes December 15, 2016 5:09pm Power of Alarm Service Technician Yes December 15 5:09pm Reason for Referral Status Reason Specialty Diagnoses / Procedures Referred By Contact Referred To Contact Authorized Rehabilitation Diagnoses Primary osteoarthritis of right knee Lisa Swartz PA-C [address] [facility] [address] [place] [address] [facility] [address] [place] [address] Specialty Diagnoses / Procedures Referred By Contac t Referred To Contact Rehabilitation Diagnoses History of arthroplasty of right knee Darien Sethi PA-C [address] [address] [facility] [address] [place] [address] Referral ID Status Reason Start Date Expiration Date V isits Requested Visits Authorized [id number] Authorized 02/11/2021 02/11/2022 1 1 Specialty Diagnoses / Procedures Referred By Contac t Referred To Contact Rehabilitation Diagnoses Presence of right artificial knee joint Darien Sethi PA-C [address] [place] [phone] [facility] [address] [place] [address] Referral ID Status Reason Start Date Expiration Date V isits Requested Visits Authorized [id number] Authorized 05/01/2021 05/01/2022 1 199 Specialty Diagnoses / Procedures Referred By Contac t Referred To Contact Cardiology / [facility] Department Diagnoses Aortic valve stenosis, etiology of cardiac valve disease unspecified Procedures CONSULT TO CARDIOLOGY OFFICE/OUTPATIENT [facility] 60-74 MINUTES Pilar Ferrer, RESOURCE CONSERVATION MANAGER.BILINGUAL TEACHER [address] [place] [address] Khalif Zheng MD [address] [place] [address] Referral ID Status Reason Start Date Expiration Date Visits Requested Visits Authorized [id number] Authorized PCP Requested Referral 12/17/2022 12/17/2023 1 1 Specialty Diagnoses / Procedures Referred By Contac t Referred To Contact ORTHOPAEDIC SURGERY Diagnoses Right wrist pain Chronic pain of right ankle Procedures CONSULT TO ORTHOPAEDICS OFFICE/OUTPATIENT [facility] 60 MINUTES Pilar Ferrer, RESOURCE CONSERVATION MANAGER.BILINGUAL TEACHER [address] [place] [address] [facility], [place] [address] [place] [address] Referral ID Status Reason Start Date Expiration Date Visits Requested Visits Authorized [id number] Authorized PCP Requested Referral 02/22/2024 02/21/2025 1 1 Chief Complaint and Reason for Visit Chief Complaint Admit Date OVERDUE 6 M FU December 11, 2024 12:4 3pm CAROTID BRUIT, CAD December 27, 2024 8:35a m Reason for Visit Admit Date Abnormal cardiovascular stress test December 11, 2024 12:43pm Aortic stenosis December 11, 2024 12:4 3pm Carotid artery disease December 11, 2024 1 2:43pm Dyslipidemia December 11, 2024 12:4 3pm Hypertension December 11, 2024 12:4 3pm Lupus December 11, 2024 12:4 3pm Chief Complaint I10 Chief Complaint Admit Date OVERDUE 6 M FU December 11, 2024 12:4 3pm Additional Source Comments INFORMATION SOURCE (unrecogn ized section and content) DATE CREATED AUTHOR 02/27/2020 [facility] DATE CREATED AUTHOR AUTHOR'S ORGANIZ ATION 11/12/2020 [employer] DATE CREATED AUTHOR AUTHOR'S ORGANIZ ATION 06/07/2021 [facility] DATE CREATED AUTHOR AUTHOR'S ORGANIZ ATION 08/12/2021 [facility] DATE CREATED AUTHOR AUTHOR'S ORGANIZ ATION 12/04/2022 [facility] DATE CREATED AUTHOR AUTHOR'S ORGANIZ ATION 03/05/2023 [facility] DATE CREATED AUTHOR AUTHOR'S ORGANIZ ATION 06/08/2024 [facility] DATE CREATED AUTHOR AUTHOR'S ORGANIZ ATION 07/11/2024 [facility] DATE CREATED AUTHOR AUTHOR'S ORGANIZ ATION 01/03/2025 [facility] DATE CREATED AUTHOR AUTHOR'S ORGANIZ ATION 01/14/2025 [facility] DATE CREATED AUTHOR AUTHOR'S ORGANIZ ATION 01/15/2025 [facility] Reason for Visit (unrecogniz ed section and content) Reason Comments Physical Therapy Specialty Diagnoses / Procedures Referred By Contac t Referred To Contact Rehabilitation Diagnoses History of arthroplasty of right knee Darien Sethi PA-C [address] [facility] [address] [place] [address] [facility] [address] [place] [address] Referral ID Status Reason Start Date Expiration Date V isits Requested Visits Authorized [id number] Authorized 02/11/2021 02/11/2022 19 199 Status Reason Specialty Diagnoses / Procedures Referred By Contact Referred To Contact Authorized Rehabilitation Diagnoses Primary osteoarthritis of right knee Lisa Swartz PA-C [address] [facility] [address] [place] [address] [facility] [address] [place] [address] Referral ID Status Reason Start Date Expiration Date V isits Requested Visits Authorized [id number] Authorized 02/11/2021 02/11/2022 25 199 Specialty Diagnoses / Procedures Referred By Bella schaffer Referred To Contact Rehabilitation Diagnoses Presence of right artificial knee joint Darien Sethi PA-C [address] [facility] [address] [place] [address] [facility] [address] [place] [address] Referral ID Status Reason Start Date Expiration Date V isits Requested Visits Authorized [id number] Authorized 05/01/2021 05/01/2022 1 199 Reason Comments Refill Request Reason Comments Patient Update Reason Comments Orders UA Reason Comments Hypertension Reason Comments Results Echo Reason Onset Date Comments Refill Request 12/22/2022 Reason Comments Results Labs from 10/21/22 Reason Comments Lab Orders Reason Onset Date Comments Population Health Navigation Outreach 08/09/2023 ACO Attributed - 2023 Medicare Wellness Appt Scheduled Reason Comments [...] right inner arm. Pain started Wednesday. 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 Specialty Start Date End Date Aimee Mendes CNP [address] [facility] [place] [address] PCP - General Nurse Practitioner 08/20/14 Turf Farm Worker Relationship Specialty Start Date End Date Aimee Mendes CNP [address] [place] [place] [address] PCP - General Nurse Practitioner 08/20/14 Turf Farm Worker Relationship Specialty Start Date End Date Aimee Mendes CNP [address] [place] [place] [address] PCP - General Nurse Practitioner 08/20/14 Turf Farm Worker Relationship Specialty Start Date End Date Aimee Mendes CNP [address] [place] [place] [address] PCP - General Nurse Practitioner 08/20/14 Turf Farm Worker Relationship Specialty Start Date End Date Aimee Mendes CNP [address] [facility] [place] [address] PCP - General Nurse Practitioner 08/20/14 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 Farm Worker Relationship Specialty Start Date End Date Aimee Mendes CNP [address] [facility] [place] [address] PCP - General Nurse Practitioner 08/20/14 Turf Farm Worker Relationship Specialty Start Date End Date Aimee Mendes CNP [address] [place] [address] PCP - General Nurse Practitioner 08/20/14 Turf Farm Worker Relationship Specialty Start Date End Date Aimee Mendes CNP [address] [place] [address] PCP - General Nurse Practitioner 08/20/14 Turf Farm Worker Relationship Specialty Start Date End Date Aimee Mendes CNP [address] [place] [address] PCP - General Nurse Practitioner 08/20/14 Turf Farm Worker Relationship Specialty Start Date End Date Aimee Mendes CNP [address] [place] [address] PCP - General Nurse Practitioner 08/20/14 Turf Farm Worker Relationship Specialty Start Date End Date Aimee Mendes CNP [address] [place] [address] PCP - General Nurse Practitioner 08/20/14 Turf Farm Worker Relationship Specialty Start Date End Date Aimee Mendes CNP [address] [place] [address] PCP - General Nurse Practitioner 08/20/14 Turf Farm Worker Relationship Specialty Start Date End Date Aimee Mendes CNP [address] [place] [address] PCP - General Nurse Practitioner 08/20/14 Turf Farm Worker Relationship Specialty Start Date End Date Aimee Mendes CNP [address] [place] [address] PCP - General Nurse Practitioner 08/20/14 Turf Farm Worker Relationship Specialty Start Date End Date Aimee Mendes, BILINGUAL TEACHER [address] [facility] [place] [address] PCP - General Nurse Practitioner 08/20/14 Turf Farm Worker Relationship Specialty Start Date End Date Aimee Mendes, BILINGUAL TEACHER [address] [facility] [place] [address] PCP - General Nurse Practitioner 08/20/14 Turf Farm Worker Relationship Specialty Start Date End Date Aimee Mendes, BILINGUAL TEACHER [address] [facility] [place] [address] PCP - General Nurse Practitioner 08/20/14 Turf Farm Worker Relationship Specialty Start Date End Date Pilar Ferrer, RESOURCE CONSERVATION MANAGER.BILINGUAL TEACHER [address] [place] [place] [address] PCP - General Internal Medicine 08/06/17 Turf Farm Worker Relationship Specialty Start Date End Date Pilar Ferrer, RESOURCE CONSERVATION MANAGER.BILINGUAL TEACHER [address] [place] [place] [address] PCP - General Internal Medicine 08/06/17 Turf Farm Worker Relationship Specialty Start Date End Date Pilar Ferrer, RESOURCE CONSERVATION MANAGER.BILINGUAL TEACHER [address] [place] [place] [address] PCP - General Internal Medicine 08/06/17 Turf Farm Worker Relationship Specialty Start Date End Date Pilar Ferrer, RESOURCE CONSERVATION MANAGER.BILINGUAL TEACHER [address] [place] [place] [address] PCP - General Internal Medicine 08/06/17 Turf Farm Worker Relationship Specialty Start Date End Date Pilar Ferrer, RESOURCE CONSERVATION MANAGER.BILINGUAL TEACHER [address] [facility] [place] [address] PCP - General Internal Medicine 08/06/17 Turf Farm Worker Relationship Specialty Start Date End Date Pilar Ferrer, RESOURCE CONSERVATION MANAGER.BILINGUAL TEACHER [address] [facility] [place] [address] PCP - General Internal Medicine 08/06/17 Turf Farm Worker Relationship Specialty Start Date End Date Pilar Ferrer, RESOURCE CONSERVATION MANAGER.BILINGUAL TEACHER [address] [facility] [place] [address] PCP - General Internal Medicine 08/06/17 Turf Farm Worker Relationship Specialty Start Date End Date Pilar Ferrer, RESOURCE CONSERVATION MANAGER.BILINGUAL TEACHER [address] [facility] [place] [address] PCP - General Internal Medicine 08/06/17 Turf Farm Worker Relationship Specialty Start Date End Date Pilar Ferrer, RESOURCE CONSERVATION MANAGER.BILINGUAL TEACHER [address] [place] [place] [address] PCP - General Internal Medicine 08/06/17 Turf Farm Worker Relationship Specialty Start Date End Date Pilar Ferrer, RESOURCE CONSERVATION MANAGER.BILINGUAL TEACHER [address] [place] [place] [address] PCP - General Internal Medicine 08/06/17 Turf Farm Worker Relationship Specialty Start Date End Date Pilar Ferrer, RESOURCE CONSERVATION MANAGER.BILINGUAL TEACHER [address] [place] [address] PCP - General Internal Medicine 08/06/17 Turf Farm Worker Relationship Specialty Start Date End Date Pilar Ferrer, RESOURCE CONSERVATION MANAGER.BILINGUAL TEACHER [address] [facility] [place] [address] PCP - General Internal Medicine 08/06/17 Turf Farm Worker Relationship Specialty Start Date End Date Pilar Ferrer, RESOURCE CONSERVATION MANAGER.BILINGUAL TEACHER [address] [facility] [address] PCP - General Internal Medicine 08/06/17 Turf Farm Worker Relationship Specialty Start Date End Date Pilar Ferrer, RESOURCE CONSERVATION MANAGER.BILINGUAL TEACHER [address] [facility] [place] [id number] PCP - General Internal Medicine 08/06/17 Turf Farm Worker Relationship Specialty Start Date End Date Pilar Ferrer, RESOURCE CONSERVATION MANAGER.BILINGUAL TEACHER [address] [facility] [place] [id number] PCP - General Internal Medicine 08/06/17 Turf Farm Worker Relationship Specialty Start Date End Date Pilar Ferrer, RESOURCE CONSERVATION MANAGER.BILINGUAL TEACHER [address] [facility] [place] [id number] PCP - General Internal Medicine 08/06/17 Turf Farm Worker Relationship Specialty Start Date End Date Pilar Ferrer, RESOURCE CONSERVATION MANAGER.BILINGUAL TEACHER [address] [facility] [place] [address] PCP - General Internal Medicine 08/06/17 Team Status: Active Member Role Status Dates Pilar Ferrer AIRCRAFT INSTRUMENT REPAIRER, AIRCRAFT INSTRUMENT REPAIRER-C Family Provider Active Pilar eFrrer AIRCRAFT INSTRUMENT REPAIRER, AIRCRAFT INSTRUMENT REPAIRER-C Primary Care Provider Active Team Status: Active Member Role Status Dates Pilar Ferrer AIRCRAFT INSTRUMENT REPAIRER, AIRCRAFT INSTRUMENT REPAIRER-C Primary Care Provider Active Dr. Montrell Hooker MD Attending Provider Active Team Status: Inactive Member Role Status Dates Pilar Ferrer AIRCRAFT INSTRUMENT REPAIRER, AIRCRAFT INSTRUMENT REPAIRER-C Primary Care Provider Active Dr. Kayla Steinberg MD Attending Provider, Referring Pr ovider Active Turf Farm Worker Relationship Specialty Start Date End Date Pilar Ferrer, RESOURCE CONSERVATION MANAGER.BILINGUAL TEACHER [address] [facility] [place] [id number] PCP - General Internal Medicine 08/06/17 Turf Farm Worker Relationship Specialty Start Date End Date Pilar Ferrer, RESOURCE CONSERVATION MANAGER.BILINGUAL TEACHER [address] [place], [place] [id number] PCP - General Internal Medicine 08/06/17 Turf Farm Worker Relationship Specialty Start Date End Date Pilar Ferrer, RESOURCE CONSERVATION MANAGER.BILINGUAL TEACHER [address] [place] [address] PCP - General Internal Medicine 08/06/17 Jenise Rios [address] [place], [place] [address] Rheumatology 11/30/23 Taniya Tyson I, DO [address] [place] [address] 757101 Nephrology 11/30/23 Houston Gonzalez Sr. [address] [place] [address] Ent - Otolaryngology 11/30/23 Turf Farm Worker Relationship Specialty Start Date End Date Pilar Ferrer, RESOURCE CONSERVATION MANAGER.BILINGUAL TEACHER [address] [place] [address] PCP - General Internal Medicine 08/06/17 Jenise Rios [address] [place] [address] Rheumatology 11/30/23 Taniya Tyson I, DO [address] [place] [address] [phone] Nephrology 11/30/23 Houston Gonzalez Sr. [address] [place] [address] Ent - Otolaryngology 11/30/23 Turf Farm Worker Relationship Specialty Start Date End Date Pilar Ferrer, RESOURCE CONSERVATION MANAGER.BILINGUAL TEACHER [address] [place] [address] PCP - General Internal Medicine 08/06/17 Balaji Riosma Tomi [address] [place] [address] Rheumatology 11/30/23 Taniya Tyson I, DO [address] [place] [address] [phone] Nephrology 11/30/23 Houston Gonzalez Sr. [address] [place] [address] Ent - Otolaryngology 11/30/23 Turf Farm Worker Relationship Specialty Start Date End Date Pilar Ferrer, RESOURCE CONSERVATION MANAGER.BILINGUAL TEACHER [address] [place] [address] PCP - General Internal Medicine 08/06/17 Balaji Riosma Tomi [address] [place] [address] Rheumatology 11/30/23 Taniya Tyson I, DO [address] [place] [address] Nephrology 11/30/23 Houston Gonzalez Sr. [address] [place] [address] Ent - Otolaryngology 11/30/23 Turf Farm Worker Relationship Specialty Start Date End Date Pilar Ferrer, RESOURCE CONSERVATION MANAGER.BILINGUAL TEACHER [address] [place] [address] PCP - General Internal Medicine 08/06/17 WilliamJenise harris Tomi [address] [facility] [place] [address] Rheumatology 11/30/23 Taniya Tyson I, DO [address] [place] [address] Nephrology 11/30/23 Houston Gonzalez Sr. [address] [place] [address] Ent - Otolaryngology 11/30/23 Turf Farm Worker Relationship Specialty Start Date End Date Pilar Ferrer, RESOURCE CONSERVATION MANAGER.BILINGUAL TEACHER [address] [place] [address] PCP - General Internal Medicine 08/06/17 BlancaJenise Tomi [address] [place] [address] Rheumatology 11/30/23 Taniya Tyson I, DO [address] [address] Nephrology 11/30/23 Houston Gonzalez Sr. [address] [place] [address] Ent - Otolaryngology 11/30/23 Turf Farm Worker Relationship Specialty Start Date End Date Pilar Ferrer RESOURCE CONSERVATION MANAGER.BILINGUAL TEACHER [address] [place] [address] PCP - General Internal Medicine 08/06/17 Jenise Rios [address] [place] [address] Rheumatology 11/30/23 Taniya Tyson I, DO [address] [address] Nephrology 11/30/23 Houston Gonzalez Sr., MD [address] [place] [address] Ent - Otolaryngology 11/30/23 Turf Farm Worker Relationship Specialty Start Date End Date Pilar Ferrer, RESOURCE CONSERVATION MANAGER.BILINGUAL TEACHER [address] [place] [address] PCP - General Internal Medicine 08/06/17 Jenise Rios [address] [place] [address] Rheumatology 11/30/23 Taniya Tyson I, DO [address] [address] Nephrology 11/30/23 Houston Gonzalez Sr., MD [address] [facility] [address] [place] [address] Ent - Otolaryngology 11/30/23 Turf Farm Worker Relationship Specialty Start Date End Date Pilar Ferrer RESOURCE CONSERVATION MANAGER.BILINGUAL TEACHER [address] [place] [address] PCP - General Internal Medicine 08/06/17 Jenise Rios [address] [place] [address] Rheumatology 11/30/23 Taniya Tyson I, DO [address] [place] [address] Nephrology 11/30/23 Houston Gonzalez Sr., MD [address] [place] [address] Ent - Otolaryngology 11/30/23 Turf Farm Worker Relationship Specialty Start Date End Date Pilar Ferrer APRN.BILINGUAL TEACHER [address] [place] [address] PCP - General Internal Medicine 08/06/17 Jenise Rios [address] [place] [address] Rheumatology 11/30/23 Taniya Tyson I, DO [address] [address] Nephrology 11/30/23 Houston Gonzalez Sr., MD [address] [place] [address] Ent - Otolaryngology 11/30/23 Turf Farm Worker Relationship Specialty Start Date End Date Pilar Ferrer APRN-BILINGUAL TEACHER [address] [place], [place] [id number] PCP - General 06/28/09 Turf Farm Worker Relationship Specialty Start Date End Date Pilar Ferrer, RESOURCE CONSERVATION MANAGER.BILINGUAL TEACHER [address] [place] [address] [id number] PCP - General Internal Medicine 08/06/17 Balaji Riosma Tomi [address] [place], [place] 9[address] Rheumatology 11/30/23 Taniya Tyson I, DO [address] [place] [address] [phone] Nephrology 11/30/23 Houston Gonzalez Sr., MD [address] [place] [address] Ent - Otolaryngology 11/30/23 Turf Farm Worker Relationship Specialty Start Date End Date Pilar Ferrer, RESOURCE CONSERVATION MANAGER.BILINGUAL TEACHER [address] [place] [address] PCP - General Internal Medicine 08/06/17 Balaji Riosma Tomi [address] [place] [address] Rheumatology 11/30/23 Taniya Tyson I, DO [address] [place] [address] [id number] Nephrology 11/30/23 Houston Gonzalez Sr., MD [address] [place] [address] Ent - Otolaryngology 11/30/23 Kayla Steinberg MD [address] [place] [address] Cardiology 12/05/24 Gama Keith [address] [place] [address] Ophthalmology 12/05/24 Turf Farm Worker Relationship Specialty Start Date End Date Pilar Ferrer, RESOURCE CONSERVATION MANAGER.BILINGUAL TEACHER [address] [place] [address] PCP - General Internal Medicine 08/06/17 Jenise Rios [address] [place] [address] Rheumatology 11/30/23 Taniya Tyson I, DO [address] [address] Nephrology 11/30/23 Houston Gonzalez Sr., MD [address] [address] Ent - Otolaryngology 11/30/23 Kayla Steinberg MD [address] [address] Cardiology 12/05/24 Gama eKith [address] [place] [address] Ophthalmology 12/05/24 Turf Farm Worker Relationship Specialty Start Date End Date Pilar Ferrer, RESOURCE CONSERVATION MANAGER.BILINGUAL TEACHER [address] [place] [address] PCP - General Internal Medicine 08/06/17 Jenise Rios [address] [place], [place] [address] Rheumatology 11/30/23 Taniya Tyson I, DO [address] [place] [address] Nephrology 11/30/23 Houston Gonzalez Sr., MD [address] [place] [address] Ent - Otolaryngology 11/30/23 Kayla Steinberg MD [address] [facility] [address] [place], [place] [address] Cardiology 12/05/24 Gama Keith [address] [place] [address] Ophthalmology 12/05/24 Team Status: Inactive Member Role Status Dates Pilar Ferrer AIRCRAFT INSTRUMENT REPAIRER, AIRCRAFT INSTRUMENT REPAIRER-C Primary Care Provider Active Start: December 11, 2024 End: December 11, 2024 Pilar Ferrer NP, AIRCRAFT INSTRUMENT REPAIRER-C Referring Provider Active Start: December 11, 2024 End: December 11, 2024 Dr. Kayla Steinberg MD Attending Provider Active Start: December 11, 2024 End: December 11, 2024 Team Status: Active Member Role/Relationship Status Dates Pilar Ferrer AIRCRAFT INSTRUMENT REPAIRER, AIRCRAFT INSTRUMENT REPAIRER-C Primary Care Provider Active Team Status: Inactive Member Role/Relationship Status Dates Pilar Ferrer AIRCRAFT INSTRUMENT REPAIRER, AIRCRAFT INSTRUMENT REPAIRER-C Primary Care Provider Active Start: December 11, 2024 End: December 11, 2024 Pilar Ferrer AIRCRAFT INSTRUMENT REPAIRER, AIRCRAFT INSTRUMENT REPAIRER-C Referring Provider Active Start: December 11, 2024 End: December 11, 2024 Dr. Kayla Steinberg MD Attending Provider Active Start: December 11, 2024 End: December 11, 2024 Team Status: Inactive Member Role/Relationship Status Dates Pilar Nabil AIRCRAFT INSTRUMENT REPAIRER, AIRCRAFT INSTRUMENT REPAIRER-C Primary Care Provider Active Start: December 27, 2024 End: December 27, 2024 Dr. Kayla Steinberg MD Attending Provider Active Start: December 27, 2024 End: December 27, 2024 Dr. Kayla Steinberg MD Referring Provider Active Start: December 27, 2024 End: December 27, 2024 Team Status: Active Member Role/Relationship Status Dates Pilar Ferrer AIRCRAFT INSTRUMENT REPAIRER, AIRCRAFT INSTRUMENT REPAIRER-C Primary Care Provider Active Start: December 27, 2024 Dr. Reno Estrada MD Attending Provider Active S tart: December 27, 2024 Turf Farm Worker Relationship Specialty Start Date End Date Pilar Ferrer, RESOURCE CONSERVATION MANAGER.BILINGUAL TEACHER [address] [place] [address] PCP - General Internal Medicine 08/06/17 Jenise Rios [address], [place] 9[address] Rheumatology 11/30/23 Taniya Tyson I, DO [address] [place], [place] [address] Nephrology 11/30/23 Houston Gonzalez Sr., MD [address] [place] [address] Ent - Otolaryngology 11/30/23 Kayla Steinberg MD [address] [place], [place] [address] Cardiology 12/05/24 Gama Keith [address] [place] [address] Ophthalmology 12/05/24 Source Comments (unrecognize d section and content) In the event this informatio n is protected by the Federal Confidentiality of Alcohol and Drug Abuse Patient Records regulations: The Federal rules restrict any use of the information to criminally investigate or prosecute any alcohol or drug abuse patient.[facility] the event this information is protected by the Federal Confidentiality of Alcohol and Drug Abuse Patient Records regulations: The Federal rules restrict any use of the information to criminally investigate or prosecute any alcohol or drug abuse patient.[facility] Hospital[facility] the event this information is protected by the Federal Confidentiality of Alcohol and Drug Abuse Patient Records regulations: The Federal rules restrict any use of the information to criminally investigate or prosecute any alcohol or drug abuse patient.[facility] the event this information is protected by the Federal Confidentiality of Alcohol and Drug Abuse Patient Records regulations: The Federal rules restrict any use of the information to criminally investigate or prosecute any alcohol or drug abuse patient.[facility] Hospital[facility] the event this information is protected by the Federal Confidentiality of Alcohol and Drug Abuse Patient Records regulations: The Federal rules restrict any use of the information to criminally investigate or prosecute any alcohol or drug abuse patient.[facility] Hospital[facility] the event this information is protected by the Federal Confidentiality of Alcohol and Drug Abuse Patient Records regulations: The Federal rules restrict any use of the information to criminally investigate or prosecute any alcohol or drug abuse patient.[facility] Hospital[facility] the event this information is protected by the Federal Confidentiality of Alcohol and Drug Abuse Patient Records regulations: The Federal rules restrict any use of the information to criminally investigate or prosecute any alcohol or drug abuse patient.[facility] Hospital[facility] the event this information is protected by the Federal Confidentiality of Alcohol and Drug Abuse Patient Records regulations: The Federal rules restrict any use of the information to criminally investigate or prosecute any alcohol or drug abuse patient.[facility] Hospital[facility] the event this information is protected by the Federal Confidentiality of Alcohol and Drug Abuse Patient Records regulations: The Federal rules restrict any use of the information to criminally investigate or prosecute any alcohol or drug abuse patient.[facility] Hospital[facility] the event this information is protected by the Federal Confidentiality of Alcohol and Drug Abuse Patient Records regulations: The Federal rules restrict any use of the information to criminally investigate or prosecute any alcohol or drug abuse patient.[facility] Hospital[facility] the event this information is protected by the Federal Confidentiality of Alcohol and Drug Abuse Patient Records regulations: The Federal rules restrict any use of the information to criminally investigate or prosecute any alcohol or drug abuse patient.[facility] Hospital[facility] the event this information is protected by the Federal Confidentiality of Alcohol and Drug Abuse Patient Records regulations: The Federal rules restrict any use of the information to criminally investigate or prosecute any alcohol or drug abuse patient.[facility] HospitalIn the event this information is protected by the Federal Confidentiality of Alcohol and Drug Abuse Patient Records regulations: The Federal rules restrict any use of the information to criminally investigate or prosecute any alcohol or drug abuse patient.[facility] HospitalIn the event this information is protected by the Federal Confidentiality of Alcohol and Drug Abuse Patient Records regulations: The Federal rules restrict any use of the information to criminally investigate or prosecute any alcohol or drug abuse patient.[facility] Hospital[facility] the event this information is protected by the Federal Confidentiality of Alcohol and Drug Abuse Patient Records regulations: The Federal rules restrict any use of the information to criminally investigate or prosecute any alcohol or drug abuse patient.[facility] HospitalIn the event this information is protected by the Federal Confidentiality of Alcohol and Drug Abuse Patient Records regulations: The Federal rules restrict any use of the information to criminally investigate or prosecute any alcohol or drug abuse patient.[facility] HospitalIn the event this information is protected by the Federal Confidentiality of Alcohol and Drug Abuse Patient Records regulations: The Federal rules restrict any use of the information to criminally investigate or prosecute any alcohol or drug abuse patient.[facility] HospitalIn the event this information is protected by the Federal Confidentiality of Alcohol and Drug Abuse Patient Records regulations: The Federal rules restrict any use of the information to criminally investigate or prosecute any alcohol or drug abuse patient.[facility] HospitalIn the event this information is protected by the Federal Confidentiality of Alcohol and Drug Abuse Patient Records regulations: The Federal rules restrict any use of the information to criminally investigate or prosecute any alcohol or drug abuse patient.[facility] HospitalIn the event this information is protected by the Federal Confidentiality of Alcohol and Drug Abuse Patient Records regulations: The Federal rules restrict any use of the information to criminally investigate or prosecute any alcohol or drug abuse patient.[facility] HospitalIn the event this information is protected by the Federal Confidentiality of Alcohol and Drug Abuse Patient Records regulations: The Federal rules restrict any use of the information to criminally investigate or prosecute any alcohol or drug abuse patient.[facility] HospitalIn the event this information is protected by the Federal Confidentiality of Alcohol and Drug Abuse Patient Records regulations: The Federal rules restrict any use of the information to criminally investigate or prosecute any alcohol or drug abuse patient.[facility] HospitalIn the event this information is protected by the Federal Confidentiality of Alcohol and Drug Abuse Patient Records regulations: The Federal rules restrict any use of the information to criminally investigate or prosecute any alcohol or drug abuse patient.[facility] HospitalIn the event this information is protected by the Federal Confidentiality of Alcohol and Drug Abuse Patient Records regulations: The Federal rules restrict any use of the information to criminally investigate or prosecute any alcohol or drug abuse patient.[facility] HospitalIn the event this information is protected by the Federal Confidentiality of Alcohol and Drug Abuse Patient Records regulations: The Federal rules restrict any use of the information to criminally investigate or prosecute any alcohol or drug abuse patient.[facility] HospitalIn the event this information is protected by the Federal Confidentiality of Alcohol and Drug Abuse Patient Records regulations: The Federal rules restrict any use of the information to criminally investigate or prosecute any alcohol or drug abuse patient.[facility] HospitalIn the event this information is protected by the Federal Confidentiality of Alcohol and Drug Abuse Patient Records regulations: The Federal rules restrict any use of the information to criminally investigate or prosecute any alcohol or drug abuse patient.[facility] HospitalIn the event this information is protected by the Federal Confidentiality of Alcohol and Drug Abuse Patient Records regulations: The Federal rules restrict any use of the information to criminally investigate or prosecute any alcohol or drug abuse patient.[facility] HospitalIn the event this information is protected by the Federal Confidentiality of Alcohol and Drug Abuse Patient Records regulations: The Federal rules restrict any use of the information to criminally investigate or prosecute any alcohol or drug abuse patient.[facility] HospitalIn the event this information is protected by the Federal Confidentiality of Alcohol and Drug Abuse Patient Records regulations: The Federal rules restrict any use of the information to criminally investigate or prosecute any alcohol or drug abuse patient.[facility] HospitalIn the event this information is protected by the Federal Confidentiality of Alcohol and Drug Abuse Patient Records regulations: The Federal rules restrict any use of the information to criminally investigate or prosecute any alcohol or drug abuse patient.[facility] HospitalIn the event this information is protected by the Federal Confidentiality of Alcohol and Drug Abuse Patient Records regulations: The Federal rules restrict any use of the information to criminally investigate or prosecute any alcohol or drug abuse patient.[facility] HospitalIn the event this information is protected by the Federal Confidentiality of Alcohol and Drug Abuse Patient Records regulations: The Federal rules restrict any use of the information to criminally investigate or prosecute any alcohol or drug abuse patient.[facility] HospitalIn the event this information is protected by the Federal Confidentiality of Alcohol and Drug Abuse Patient Records regulations: The Federal rules restrict any use of the information to criminally investigate or prosecute any alcohol or drug abuse patient.[facility] HospitalIn the event this information is protected by the Federal Confidentiality of Alcohol and Drug Abuse Patient Records regulations: The Federal rules restrict any use of the information to criminally investigate or prosecute any alcohol or drug abuse patient.[facility] HospitalIn the event this information is protected by the Federal Confidentiality of Alcohol and Drug Abuse Patient Records regulations: The Federal rules restrict any use of the information to criminally investigate or prosecute any alcohol or drug abuse patient.[facility] HospitalIn the event this information is protected by the Federal Confidentiality of Alcohol and Drug Abuse Patient Records regulations: The Federal rules restrict any use of the information to criminally investigate or prosecute any alcohol or drug abuse patient.[facility] HospitalIn the event this information is protected by the Federal Confidentiality of Alcohol and Drug Abuse Patient Records regulations: The Federal rules restrict any use of the information to criminally investigate or prosecute any alcohol or drug abuse patient.[facility] HospitalIn the event this information is protected by the Federal Confidentiality of Alcohol and Drug Abuse Patient Records regulations: The Federal rules restrict any use of the information to criminally investigate or prosecute any alcohol or drug abuse patient.[facility] HospitalIn the event this information is protected by the Federal Confidentiality of Alcohol and Drug Abuse Patient Records regulations: The Federal rules restrict any use of the information to criminally investigate or prosecute any alcohol or drug abuse patient.[facility] HospitalIn the event this information is protected by the Federal Confidentiality of Alcohol and Drug Abuse Patient Records regulations: The Federal rules restrict any use of the information to criminally investigate or prosecute any alcohol or drug abuse patient.[facility] HospitalIn the event this information is protected by the Federal Confidentiality of Alcohol and Drug Abuse Patient Records regulations: The Federal rules restrict any use of the information to criminally investigate or prosecute any alcohol or drug abuse patient.[facility] HospitalIn the event this information is protected by the Federal Confidentiality of Alcohol and Drug Abuse Patient Records regulations: The Federal rules restrict any use of the information to criminally investigate or prosecute any alcohol or drug abuse patient.[facility] HospitalIn the event this information is protected by the Federal Confidentiality of Alcohol and Drug Abuse Patient Records regulations: The Federal rules restrict any use of the information to criminally investigate or prosecute any alcohol or drug abuse patient.[facility] HospitalIn the event this information is protected by the Federal Confidentiality of Alcohol and Drug Abuse Patient Records regulations: The Federal rules restrict any use of the information to criminally investigate or prosecute any alcohol or drug abuse patient.[facility] HospitalIn the event this information is protected by the Federal Confidentiality of Alcohol and Drug Abuse Patient Records regulations: The Federal rules restrict any use of the information to criminally investigate or prosecute any alcohol or drug abuse patient.[facility] HospitalIn the event this information is protected by the Federal Confidentiality of Alcohol and Drug Abuse Patient Records regulations: The Federal rules restrict any use of the information to criminally investigate or prosecute any alcohol or drug abuse patient.[facility] HospitalIn the event this information is protected by the Federal Confidentiality of Alcohol and Drug Abuse Patient Records regulations: The Federal rules restrict any use of the information to criminally investigate or prosecute any alcohol or drug abuse patient.[facility] HospitalIn the event this information is protected by the Federal Confidentiality of Alcohol and Drug Abuse Patient Records regulations: The Federal rules restrict any use of the information to criminally investigate or prosecute any alcohol or drug abuse patient.[facility] HospitalIn the event this information is protected by the Federal Confidentiality of Alcohol and Drug Abuse Patient Records regulations: The Federal rules restrict any use of the information to criminally investigate or prosecute any alcohol or drug abuse patient.[facility] Goals (unrecognized section and content) Goals may be documented in a n alternate sectionGoals may be documented in an alternate sectionGoals may be documented in an alternate section FOR RECORDS PERTAINING TO PATIENTS WHO ARE [...] BE BASED ON THE PRIMARY CLINICAL RECORDS. [facility] [employer] [facility]. provides no warranty or guarantee of the accuracy or completeness of information in this document.
--- NOTE | 2025-01-22 06:33 | ECHOCS_ITS ---
Reason For Study Reason For Study: CAD/ASHD Procedure This was a 2D Doppler, Color Flow transthoracic echocardiogram. Contrast injection was performed. Exam performed in department. Left Ventricle Normal size and thickness. The LV ejection fraction is 50 %. Normal diastology for age. Right Ventricle Normal right ventricle. Atria The left and right atria are normal. Mitral Valve Mild (1+) mitral valve insufficiency. Tricuspid Valve Trivial tricuspid valve insufficiency. Normal pulmonary artery pressure. Aortic Valve Moderately calcified aortic valve. Moderate aortic valve stenosis with mean peak gradient 36 mmHg. Mild aortic valve regurgitation. Pulmonic Valve The pulmonic valve is not well visualized. Great Vessels The aortic root is not well visualized. Pericardium/Pleural Trivial pericardial effusion. Medication 22 gauge I.V. with prn adaptor inserted into right arm. Diluted definity 1ml given slow IV push to enhance endocardial definition. MMode/2D Measurements & Calculations LVIDd: 5.2 cm IVSd: 1.1 cm LVOT diam: 2.1 cm LVIDs: 3.9 cm LVPWd: 1.1 cm FS: 24.6 % LVOT area: 3.4 cm2 Ao root diam: 3.5 cm LAV(MOD-bp): 46.7 ml LVAd ap4: 36.4 cm2 LAV(MOD-bp) Indexed: 23.9 ml/m2 LVLd ap4: 8.5 cm LAV(MOD-sp2): 49.2 ml EDV(MOD-sp4): 130.3 ml LAV(MOD-sp4): 42.3 ml EDV(sp4-el): 133.2 ml LVAs ap4: 22.7 cm2 LVLs ap4: 6.9 cm ESV(MOD-sp4): 62.7 ml ESV(sp4-el): 63.5 ml EF(MOD-sp4): 51.9 % EF(sp4-el): 52.3 % SV(MOD-sp4): 67.6 ml SV(sp4-el): 69.7 ml LA A4 area: 16.5 cm2 SI(MOD-sp4): 34.6 ml/m2 LA dimension(2D): 3.6 cm RA A4 area: 11.9 cm2 TAPSE: 2.0 cm Time Measurements MV dec time: 0.23 sec Doppler Measurements & Calculations MV E max chaim: 93.5 cm/sec Lat Peak E' Chaim: 6.8 cm/sec Med Peak E' Chaim: 8.0 cm/sec MV A max chaim: 119.1 cm/sec E/E' lat: 13.8 E/E' med: 11.7 MV E/A: 0.78 MV V2 max: 143.8 cm/sec MV P1/2t max chaim: 111.4 cm/sec Ao V2 max: 378.3 cm/sec MV max P.3 mmHg MV P1/2t: 73.1 msec Ao max P.3 mmHg MV V2 mean: 76.6 cm/sec MV dec slope: 446.8 cm/sec2 Ao V2 mean: 285.2 cm/sec MV mean P.8 mmHg MVA(P1/2t): 3.0 cm2 Ao mean P.8 mmHg MV V2 VTI: 34.5 cm Ao V2 VTI: 102.2 cm MVA(VTI): 2.8 cm2 AV (velocity ratio): 0.28 MONIKA(I,D): 0.94 cm2 MONIKA(V,D): 0.95 cm2 AI max chaim: 397.7 cm/sec LV V1 max: 106.4 cm/sec MR max chaim: 505.6 cm/sec AI max P.3 mmHg LV V1 max P.5 mmHg MR max P.2 mmHg LV V1 mean P.1 mmHg AI dec slope: 323.9 cm/sec2 LV V1 mean: 85.3 cm/sec AI P1/2t: 359.7 msec LV V1 VTI: 28.5 cm SV(LVOT): 96.1 ml TR max chaim: 237.6 cm/sec TR max P.6 mmHg ECHO/Echo Complete W/ Contrast Interpretation Summary The LV ejection fraction is 50 %. Mild (1+) mitral valve insufficiency. Moderate aortic valve stenosis with mean peak gradient 36 mmHg. Mild aortic jody ve regurgitation. Ordering Physician: Kayla Steinberg Referring Physician: Kayla Steinberg Performed By: Jose Anderson [facility]
--- NOTE | 2025-01-22 14:08 | STRESSREP_ITS ---
Stress Test Report Date: 01/22/2025 Procedure: Pharmacologic stress nuclear imaging study Indications: History of abnormal stress Consent: Per the patient Procedure: The patient underwent pharmacologic (Regadenoson 0.4mg ) evaluation with a peak heart rate of 94 beats per minute (65%predicted maximal heart rate) and a peak blood pressure of 128/68 mmHg. The baseline ECG demonstrated sinus rhythm. The peak pharmacologic ECG did not show any ischemic changes. There were no cardiac dysrhythmias pretest, during pharmacologic infusion, or recovery. There was no complaint of chest discomfort during pharmacologic infusion or recovery. The patient was injected with 14.3 millicuries of technetium 99m Cardiolite and subsequently rest SPECT Cardiolite nuclear imaging was obtained in the horizontal long, vertical long, and short axis views. The patient underwent pharmacologic (Regadenoson) evaluation. The patient was injected with 44.7 millicuries of technetium 99m Cardiolite and subsequently stress SPECT Cardiolite nuclear imaging was obtained in the horizontal long, vertical long, and short axis views. A gated Cardiolite study at peak stress was obtained. The examination was stopped secondary to completion of protocol. Rest and stress SPECT Cardiolite nuclear imaging status post realignment, normalization, and attenuation correction demonstrate no fixed or reversible perfusion defects. There is end systolic thickening and brightening. The gated Cardiolite study demonstrates myocardial thickening and inward wall motion. The reported LVEF is 53%. Impression: 1. Pharmacologic (Regadenoson) evaluation 2. Peak pharmacologic ECG with no ischemic changes. 3. There were no cardiac dysrhythmias pretest, during pharmacologic infusion, or recovery. 5. Rest and stress SPECT Cardiolite nuclear imaging demonstrate relative uniform tracer uptake and myocardial perfusion appearing within normal limits. 6. The gated Cardiolite study reports an LVEF of 53%. This note was generated with [employer] software. It may contain incorrect words, spelling, and punctuation that were not noted in checking the note before signing.
== END | disposition home or self-care (01) ==
PROVIDERS: PCP Nurse Practitioner Adult Health; Referring Provider Internal Medicine Cardiovascular Disease; Visit Provider Internal Medicine Cardiovascular Disease
DX: R94.39 Abnormal result of other cardiovascular function study (principal); I35.0 Nonrheumatic aortic (valve) stenosis; I25.10 Atherosclerotic heart disease of native coronary artery without angina pectoris
CPT/HCPCS: 78452; 93017; 93306; A9500; Q9957; A4216; C8929; J2785